=== PATIENT | female | born 1965 | race Caucasian/White ===

== ENCOUNTER 2017-09-17 13:38 | Emergency (ER) | payer MEDICAID ==
[2017-09-17] MEDS ORDERED: Sodium Chloride 0.9% 1,000 ML IV ONE (14:10)
[2017-09-17] MEDS ORDERED: LORazepam 2 MG/ML MDV IVPUSH ONE (14:10)
[2017-09-17] MEDS ORDERED: Ketorolac 30 MG/ML SDV IVPUSH ONE (14:10)
[2017-09-17] MEDS ORDERED: Ondansetron 4 MG/2 ML SDV IVPUSH ONE (14:10)
--- NOTE | 2017-09-17 14:14 | EDM.PDOC ---
ED HPI GENERAL MEDICAL PROBLEM - General Chief Complaint: Abdominal Pain Stated Complaint: ABD PAIN Time Seen by Provider: 09/17/17 13:40 Source of Information: Reports: Patient History Limitations: Reports: No Limitations - History of Present Illness INITIAL COMMENTS - FREE TEXT/NARRATIVE: HISTORY AND PHYSICAL: History of present illness: Patient is a 52-year-old female who presents to the emergency room today with complaints of generalized abdominal pain, nausea, diarrhea. Patient states yesterday she had a "funny tummy" but did not have any nausea, vomiting, diarrhea or abdominal pain at that time. Today after eating lunch she states her symptoms started. Patient does report that she has a history of anxiety and believes her anxiety is increasing her symptoms. "When I have any kind of pain my anxiety just goes crazy". She continues to talk about a past hospitalization where she had sepsis, patient reports that anytime she has pain or starts to feel ill her anxiety increases as she refers back to that hospitalization which sounds like it was a traumatic experience for her. Patient also states that she has mild midsternal chest pain that is non-radiating, she attributes this to her anxiety as these symptoms do occur when she has an increase in anxiety. Denies any shortness of breath, diaphoresis. Patient denies any fever, chills, dysuria or blood in her stools. Patient has a history of ovarian cancer which she had a total hysterectomy 25 years ago. Since that time has had no return or complications regaurding her cancer. Review of systems: As per history of present illness and below otherwise all systems reviewed and negative. Past medical history: As per history of present illness and as reviewed below otherwise noncontributory. Surgical history: As per history of present illness and as reviewed below otherwise noncontributory. Social history: No reported history of drug or alcohol abuse. Family history: As per history of present illness and as reviewed below otherwise noncontributory. Physical exam: Gen.: Well-developed and well-nourished 52-year-old female. Able to speak in full sentences without shortness of breath. Alert and oriented. HEENT: Atraumatic, normocephalic, pupils reactive, negative for conjunctival pallor or scleral icterus, mucous membranes moist, throat clear, neck supple, nontender, trachea midline. Lungs: Clear to auscultation, breath sounds equal bilaterally, chest nontender. Heart: S1S2, regular rate and rhythm Abdomen: Soft, nondistended, diffuse tenderness throughout. Negative for masses or hepatosplenomegaly. Negative for costovertebral tenderness. Pelvis: Stable nontender. Genitourinary: Deferred. Rectal: Deferred. Extremities: Atraumatic, negative for cords or calf pain. Neurovascular unremarkable. Neuro: Awake, alert, oriented. Cranial nerves II through XII unremarkable. Cerebellum unremarkable. Motor and sensory unremarkable throughout. Exam nonfocal. Patient was agreeable to the Zofran and Toradol. Although patient had requested for something anxiety initially, she now declines taking any Ativan. She does appear to be less anxious after receiving fluids. I did discuss lab results and CT salts with patient. Patient states she is aware she has diabetes type 2 that she has decided to stop all her oral and insulin medications as she does not like to take anything by mouth or give herself shots. I did tell her that she has a blood sugar of 300 with ketones spilling urine. Patient states she does not want to take any medications to lower her sugar at this time. She does agree to follow-up with a primary care provider to address this situation. Diagnostics: CBC, CMP, troponin, EKG, amylase, lipase, UA Therapeutics: IV fluid, Zofran, Toradol, Ativan Impression: 1. Abdominal pain 2. Anxiety 3. Diabetes type 2, noncompliant with medication management Plan: 1. Continue to push fluids to prevent dehydration. Eat a well-balanced diet. 2. Your blood sugar was elevated today. I would like you to follow-up with your primary care provider to get reestablished on diabetes medications. We did discuss the possible complications, and medications can prevent some of those. 3. As we discussed I would like you to monitor your abdominal pain. If this continues to get worse or you have new symptoms I would like to return to the emergency room. Please follow-up with your primary caregiver in the next 1-2 days. Return to the ED as needed as discussed Definitive disposition and diagnosis as appropriate pending reevaluation and review of above. Abdomen Pain Score (Numeric/FACES): 6 - Related Data Allergies Allergy/AdvReac Type Severity Reaction Status Date / Time latex Allergy Rash Verified 09/17/17 13:50 Sulfa (Sulfonamide Allergy Stomach Verified 09/17/17 13:50 Antibiotics) Upset Home Meds: Home Meds . [No Known Home Meds] 09/17/17 [History] Past Medical History HEENT History: Reports: Other (See Below) Other HEENT History: has top denture Cardiovascular History: Reports: None Respiratory History: Reports: Other (See Below) Other Respiratory History: chronic daily smoker Gastrointestinal History: Reports: Helicobacter Pylori Genitourinary History: Reports: None RN SURGICAL History: Reports: Musculoskeletal History: Reports: Back Pain, Chronic Neurological History: Reports: None Psychiatric History: Reports: Anxiety, Depression Endocrine/Metabolic History: Reports: Diabetes, Type II, Other (See Below) Other Endocrine/Metabolic History: Pt questions this Dx Hematologic History: Reports: Other (See Below) Other Hematologic History: States "bacterium in blood" Immunologic History: Reports: None Oncologic (Cancer) History: Reports: Ovarian Dermatologic History: Reports: Eczema - Infectious Disease History Infectious Disease History: Reports: Chicken Pox - Past Surgical History Head Surgeries/Procedures: Reports: None Female Surgical History: Reports: Hysterectomy, Salpingo-Oophorectomy Musculoskeletal Surgical History: Reports: Carpal Tunnel Oncologic Surgical History: Reports: Other (See Below) - History Comment History Comment: Son says she's been evaluated for these sxs in past but doesn' t recall where w/u was done (including CT of abd). No EGD ever done. The h pylori was dx'd by serologies. Social & Family History - Family History Family Medical History: Noncontributory Cardiac: Reports: Hypertension Other Cardiac Family History: Mother, Aunt Respiratory: Reports: COPD Other Respiratory Family Hisory: Uncle GI: Reports: None Neurological: Reports: Other (See Below) Other Neurological Family History: Stroke-Grandmother Endocrine/Metabolic: Reports: Diabetes, type II - Tobacco Use Smoking Status *Q: Current Every Day Smoker Years of Tobacco use: 30 Packs/Tins Daily: 0.5 Second Hand Smoke Exposure: Yes - Caffeine Use Caffeine Use: Reports: Soda - Alcohol Use Days Per Week of Alcohol Use: 2 Number of Drinks Per Day: 2 Total Drinks Per Week: 4 - Recreational Drug Use Recreational Drug Use: No - Living Situation & Occupation Living situation: Reports: Single Occupation: Unemployed ED ROS GENERAL - Review of Systems Review Of Systems: ROS reveals no pertinent complaints other than HPI. ED EXAM, GI/ABD - Physical Exam Exam: See Below Course - Vital Signs Last Recorded V/S: Last Vital Signs Temp 36.4 C 09/17/17 13:45 Pulse 90 09/17/17 13:45 Resp 12 09/17/17 13:45 BP 132/87 09/17/17 13:45 Pulse Ox 97 09/17/17 13:45 - Orders/Labs/Meds Orders: Active Orders 24 hr Category Date Time Status EKG Documentation Completion [RC] STAT Care 09/17/17 14:14 Active Labs: Laboratory Tests 09/17/17 09/17/17 09/17/17 Range/Units 14:25 14:25 14:25 WBC 9.85 (4.0-11.0) K/uL RBC 4.16 L (4.30-5.90) M/uL Hgb 12.4 (12.0-16.0) g/dL Hct 36.0 (36.0-46.0) % MCV 86.5 (80.0-98.0) fL MCH 29.8 (27.0-32.0) pg MCHC 34.4 (31.0-37.0) g/dL RDW Std Deviation 42.4 (28.0-62.0) fl RDW Coeff of Kennedi 13 (11.0-15.0) % Plt Count 206 (150-400) K/uL MPV 12.60 H (7.40-12.00) fL Neut % (Auto) 74.3 (48.0-80.0) % Lymph % (Auto) 15.9 L (16.0-40.0) % Beaver % (Auto) 6.8 (0.0-15.0) % Eos % (Auto) 2.8 (0.0-7.0) % Baso % (Auto) 0.2 (0.0-1.5) % Neut # (Auto) 7.3 H (1.4-5.7) K/uL Lymph # (Auto) 1.6 (0.6-2.4) K/uL Beaver # (Auto) 0.7 (0.0-0.8) K/uL Eos # (Auto) 0.3 (0.0-0.7) K/uL Baso # (Auto) 0.0 (0.0-0.1) K/uL Nucleated RBC % 0.0 /100WBC Nucleated RBCs # 0 K/uL Sodium 136 (136-146) mmol/L Potassium 3.8 (3.5-5.1) mmol/L Chloride 106 (98-110) mmol/L Carbon Dioxide 21 (21-31) mmol/L BUN 22 (6.0-23.0) mg/dL Creatinine 0.9 (0.6-1.5) mg/dL Est Cr Clr Drug Dosing 74.61 mL/min Estimated GFR (MDRD) > 60.0 ml/min Glucose 306 H (60-110) mg/dL Calcium 9.0 (8.8-10.8) mg/dL Total Bilirubin 0.5 (0.1-1.5) mg/dL AST 26 (5-40) IU/L ALT 31 (8-54) IU/L Alkaline Phosphatase 179 H (40-150) Troponin I < 0.10 (0.0-0.29) NG/ML Total Protein 6.6 (6.0-8.0) g/dL Albumin 3.7 (3.5-5.0) g/dL Globulin 2.9 (2.0-3.5) g/dL Albumin/Globulin Ratio 1.3 (1.3-2.8) Amylase 82 (10-90) U/L Lipase 23 (7-80) U/L Urine Color Urine Appearance Urine pH (5.0-8.0) Ur Specific Morgan (1.001-1.035) Urine Protein (NEGATIVE) mg/dL Urine Glucose (UA) (NEGATIVE) mg/dL Urine Ketones (NEGATIVE) mg/dL Urine Occult Blood (NEGATIVE) Urine Nitrite (NEGATIVE) Urine Bilirubin (NEGATIVE) Urine Urobilinogen (<2.0) EU/dL Ur Leukocyte Esterase (NEGATIVE) Urine RBC (0-2/HPF) Urine WBC (0-5/HPF) Ur Epithelial Cells (NONE-FEW) Urine Bacteria (NEGATIVE) Urine Yeast 09/17/17 Range/Units 14:25 WBC (4.0-11.0) K/uL RBC (4.30-5.90) M/uL Hgb (12.0-16.0) g/dL Hct (36.0-46.0) % MCV (80.0-98.0) fL MCH (27.0-32.0) pg MCHC (31.0-37.0) g/dL RDW Std Deviation (28.0-62.0) fl RDW Coeff of Kennedi (11.0-15.0) % Plt Count (150-400) K/uL MPV (7.40-12.00) fL Neut % (Auto) (48.0-80.0) % Lymph % (Auto) (16.0-40.0) % Beaver % (Auto) (0.0-15.0) % Eos % (Auto) (0.0-7.0) % Baso % (Auto) (0.0-1.5) % Neut # (Auto) (1.4-5.7) K/uL Lymph # (Auto) (0.6-2.4) K/uL Beaver # (Auto) (0.0-0.8) K/uL Eos # (Auto) (0.0-0.7) K/uL Baso # (Auto) (0.0-0.1) K/uL Nucleated RBC % /100WBC Nucleated RBCs # K/uL Sodium (136-146) mmol/L Potassium (3.5-5.1) mmol/L Chloride (98-110) mmol/L Carbon Dioxide (21-31) mmol/L BUN (6.0-23.0) mg/dL Creatinine (0.6-1.5) mg/dL Est Cr Clr Drug Dosing mL/min Estimated GFR (MDRD) ml/min Glucose (60-110) mg/dL Calcium (8.8-10.8) mg/dL Total Bilirubin (0.1-1.5) mg/dL AST (5-40) IU/L ALT (8-54) IU/L Alkaline Phosphatase (40-150) Troponin I (0.0-0.29) NG/ML Total Protein (6.0-8.0) g/dL Albumin (3.5-5.0) g/dL Globulin (2.0-3.5) g/dL Albumin/Globulin Ratio (1.3-2.8) Amylase (10-90) U/L Lipase (7-80) U/L Urine Color YELLOW Urine Appearance SLT CLOUDY Urine pH 5.5 (5.0-8.0) Ur Specific Morgan 1.025 (1.001-1.035) Urine Protein NEGATIVE (NEGATIVE) mg/dL Urine Glucose (UA) >=1000 (NEGATIVE) mg/dL Urine Ketones TRACE H (NEGATIVE) mg/dL Urine Occult Blood TRACE-INTACT (NEGATIVE) Urine Nitrite NEGATIVE (NEGATIVE) Urine Bilirubin NEGATIVE (NEGATIVE) Urine Urobilinogen 0.2 (<2.0) EU/dL Ur Leukocyte Esterase NEGATIVE (NEGATIVE) Urine RBC 0-1 (0-2/HPF) Urine WBC 3-6 (0-5/HPF) Ur Epithelial Cells MANY (NONE-FEW) Urine Bacteria RARE (NEGATIVE) Urine Yeast FEW Meds: Medications Discontinued Medications Generic Name Dose Route Start Last Admin Trade Name Freq PRN Reason Stop Dose Admin Sodium Chloride 1,000 mls @ 999 mls/hr 09/17/17 14:10 09/17/17 14:31 Normal Saline IV 09/17/17 15:10 999 mls/hr STAT ONE Administration Iopamidol 100 ml 09/17/17 15:31 09/17/17 15:46 Isovue Multipack-370 (76%) IVPUSH 09/17/17 15:32 100 ml ONETIME STA Administration Ketorolac Tromethamine 30 mg 09/17/17 14:10 09/17/17 14:28 Toradol IVPUSH 09/17/17 14:11 30 mg ONETIME ONE Administration Lorazepam 0.5 mg 09/17/17 14:10 09/17/17 14:37 Ativan IVPUSH 09/17/17 14:11 Not Given ONETIME ONE Ondansetron HCl 4 mg 09/17/17 14:10 09/17/17 14:28 Zofran IVPUSH 09/17/17 14:11 4 mg ONETIME ONE Administration Departure - Departure Time of Disposition: 16:50 Disposition: Home, W Home Health Agency 06 Clinical Impression: Anxiety, History of medication noncompliance Abdominal pain Qualifiers: Abdominal location: generalized Qualified Code(s): R10.84 - Generalized abdominal pain - Discharge Information Referrals: Jesús Dial MD [Primary Care Provider] - Forms: ED Department Discharge Additional Instructions: My general discharge The following information is given to patients seen in the emergency department who are being discharged to home. This information is to outline your options for follow-up care. We provide all patients seen in our emergency department with a follow-up referral. The need for follow-up, as well as the timing and circumstances, are variable depending upon the specifics of your emergency department visit. If you don't have a primary care physician on staff, we will provide you with a referral. We always advise you to contact your personal physician following an emergency department visit to inform them of the circumstance of the visit and for follow-up with them and/or the need for any referrals to a consulting specialist. The emergency department will also refer you to a specialist when appropriate. This referral assures that you have the opportunity for follow-up care with a specialist. All of these measure are taken in an effort to provide you with optimal care, which includes your follow-up. Under all circumstances we always encourage you to contact your private physician who remains a resource for coordinating your care. When calling for follow-up care, please make the office aware that this follow-up is from your recent emergency room visit. If for any reason you are refused follow-up, please contact the [facility] Emergency Department at and asked to speak to the emergency department charge nurse. [facility] [address] [place] [address] 1. Continue to push fluids to prevent dehydration. Eat a well-balanced diet. 2. Your blood sugar was elevated today. I would like you to follow-up with your primary care provider to get reestablished on diabetes medications. We did discuss the possible complications, and medications can prevent some of those. 3. As we discussed I would like you to monitor your abdominal pain. If this continues to get worse or you have new symptoms I would like to return to the emergency room. Please follow-up with your primary caregiver in the next 1-2 days. Return to the ED as needed as discussed - My Orders Last 24 Hours: My Active Orders 09/17/17 14:14 EKG Documentation Completion [RC] STAT - Assessment/Plan Last 24 Hours: My Active Orders 09/17/17 14:14 EKG Documentation Completion [RC] STAT
[2017-09-17 14:54] LABS: CHLORIDE,CL 106 mmol/L (98-110); SODIUM,NA 136 mmol/L (136-146)
[2017-09-17] MEDS ORDERED: Iopamidol 755 MG/ML 500 ML Multipack Bottle IVPUSH STA (15:31)
--- NOTE | 2017-09-17 16:17 | CT ---
CT of the abdomen and pelvis with contrast. HISTORY: Pain TECHNIQUE: Axial CT images were obtained of the abdomen and pelvis following administration of 100 mL of Isovue-370 in the right wrist without complication. Coronal and sagittal reconstructions obtained . FINDINGS: The lung bases are clear, no pleural effusion. The liver, spleen, adrenal glands, and pancreas appear normal. The gallbladder is normal. No bulky re troperitoneal lymphadenopathy or abdominal ascites. The kidneys enhance and function symmetrically without evidence of obstructive uropathy. Small renal cysts noted. There are mildly prominent loops of small bowel measuring up to 3 cm. There is also fluid, gas and st ool noted throughout the colon. No definite transition point identified. No free fluid or free air. T he urinary bladder is decompressed. No bulky pelvic lymphadenopathy. No suspicious osseous abnormalities identified. IMPRESSION: 1. Mildly prominent loops of small bowel are still and gas noted throughout the colon. This may repre sent an ileus, this is unlikely a bowel obstruction however a partial obstruction is not excluded. En teritis is also a consideration. 2. Otherwise no acute findings demonstrated within the abdomen or pelvis.
[2017-09-17 17:43] VITALS: BP 143/92
== END 2017-09-17 17:15 | disposition home health service (06) ==
LOC: MW.ED 13:38
DX: R10.84 Generalized abdominal pain (principal); F17.210 Nicotine dependence, cigarettes, uncomplicated; E11.9 Type 2 diabetes mellitus without complications; Z90.710 Acquired absence of both cervix and uterus; Z88.2 Allergy status to sulfonamides; Z91.040 Latex allergy status; Z85.43 Personal history of malignant neoplasm of ovary; F41.9 Anxiety disorder, unspecified; Z91.14 Patient's other noncompliance with medication regimen
CPT/HCPCS: 74177; 80053; 81001; 82150; 83690; 84484; 85025; 93005; 96361; 96374; 96375; 99284; J1885; J2405; J7040; Q9967

== ENCOUNTER 2017-09-26 08:51 | Emergency (ER) | payer MEDICAID ==
--- NOTE | 2017-09-26 09:22 | EDM.PDOC ---
ED HPI GENERAL MEDICAL PROBLEM - General Chief Complaint: Abdominal Pain Stated Complaint: ABD PAIN Time Seen by Provider: 09/26/17 09:17 Source of Information: Reports: Patient History Limitations: Reports: No Limitations - History of Present Illness INITIAL COMMENTS - FREE TEXT/NARRATIVE: History of present illness: Patient has had abdominal pain for 2 years. Review of systems: As per history of present illness and below otherwise all systems reviewed and negative. Past medical history: As per history of present illness and as reviewed below otherwise noncontributory. Surgical history: As per history of present illness and as reviewed below otherwise noncontributory. Social history: No reported history of drug or alcohol abuse. Family history: As per history of present illness and as reviewed below otherwise noncontributory. Physical exam: General: Well developed, well nourished in NAD HEENT: Atraumatic, normocephalic, pupils reactive, negative for conjunctival pallor or scleral icterus, mucous membranes moist, throat clear, neck supple, nontender, trachea midline. Lungs: Clear to auscultation, breath sounds equal bilaterally, chest nontender. Heart: S1S2, regular, negative for clicks, rubs, or JVD. Abdomen: Soft, nondistended, nontender. Negative for masses or hepatosplenomegaly. Negative for costovertebral tenderness. Pelvis: Stable nontender. Genitourinary: Deferred. Rectal: Deferred. Extremities: Atraumatic, negative for cords or calf pain. Neurovascular unremarkable. Neuro: Awake, alert, oriented. Cranial nerves II through XII unremarkable. Cerebellum unremarkable. Motor and sensory unremarkable throughout. Exam nonfocal. Diagnostics: []CBC chemistry and UA were checked which were all normal except for an elevated glucose in the 400s Therapeutics: []Initially patient refused any treatment has not had any diabetic education and is in fear of receiving insulin. I explained to her the need and she finally agreed to receiving one dose of insulin and a repeat CBG showed a glucose of 268. No signs of DKA. Her labs Impression: []Uncontrolled diabetes Plan: []Diabetic nurse was contacted and she will be speaking with the patient by phone this afternoon and scheduling appointment to educating her further and giving her some supplies. Definitive disposition and diagnosis as appropriate pending reevaluation and review of above. Middle Abdominal Pain Score (Numeric/FACES): 4 - Related Data Allergies Allergy/AdvReac Type Severity Reaction Status Date / Time latex Allergy Rash Verified 09/26/17 09:17 Sulfa (Sulfonamide Allergy Stomach Verified 09/26/17 09:17 Antibiotics) Upset Past Medical History HEENT History: Reports: Other (See Below) Other HEENT History: has top denture Cardiovascular History: Reports: None Respiratory History: Reports: Other (See Below) Other Respiratory History: chronic daily smoker Gastrointestinal History: Reports: Helicobacter Pylori Genitourinary History: Reports: None [employer] History: Reports: Musculoskeletal History: Reports: Back Pain, Chronic Neurological History: Reports: None Psychiatric History: Reports: Anxiety, Depression Endocrine/Metabolic History: Reports: Diabetes, Type II, Other (See Below) Other Endocrine/Metabolic History: Pt questions this Dx Hematologic History: Reports: Other (See Below) Other Hematologic History: States "bacterium in blood" Immunologic History: Reports: None Oncologic (Cancer) History: Reports: Ovarian Dermatologic History: Reports: Eczema - Infectious Disease History Infectious Disease History: Reports: Chicken Pox - Past Surgical History Head Surgeries/Procedures: Reports: None Female Surgical History: Reports: Hysterectomy, Salpingo-Oophorectomy Musculoskeletal Surgical History: Reports: Carpal Tunnel Oncologic Surgical History: Reports: Other (See Below) - History Comment History Comment: Son says she's been evaluated for these sxs in past but doesn' t recall where w/u was done (including CT of abd). No EGD ever done. The h pylori was dx'd by serologies. Social & Family History - Family History Family Medical History: Noncontributory Cardiac: Reports: Hypertension Other Cardiac Family History: Mother, Aunt Respiratory: Reports: COPD Other Respiratory Family Hisory: Uncle GI: Reports: None Neurological: Reports: Other (See Below) Other Neurological Family History: Stroke-Grandmother Endocrine/Metabolic: Reports: Diabetes, type II - Tobacco Use Smoking Status *Q: Current Every Day Smoker Years of Tobacco use: 30 Packs/Tins Daily: 0.5 Second Hand Smoke Exposure: Yes - Caffeine Use Caffeine Use: Reports: Soda - Alcohol Use Days Per Week of Alcohol Use: 2 Number of Drinks Per Day: 2 Total Drinks Per Week: 4 - Recreational Drug Use Recreational Drug Use: No - Living Situation & Occupation Living situation: Reports: Single Occupation: Unemployed ED ROS GENERAL - Review of Systems Review Of Systems: See Below (See history of present illness) ED EXAM, GI/ABD - Physical Exam Exam: See Below (See history of present illness) Course - Vital Signs Last Recorded V/S: Last Vital Signs Temp 36.8 C 09/26/17 10:17 Pulse 78 09/26/17 10:17 Resp 12 09/26/17 10:17 BP 138/82 09/26/17 10:17 Pulse Ox 96 09/26/17 10:17 - Orders/Labs/Meds Orders: Active Orders 24 hr Category Date Time Status Blood Glucose Check, Bedside [RC] ONETIME Care 09/26/17 11:26 Ordered Labs: Laboratory Tests 09/26/17 09/26/17 09/26/17 Range/Units 09:34 09:34 09:45 WBC 6.27 (4.0-11.0) K/uL RBC 4.13 L (4.30-5.90) M/uL Hgb 12.3 (12.0-16.0) g/dL Hct 36.3 (36.0-46.0) % MCV 87.9 (80.0-98.0) fL MCH 29.8 (27.0-32.0) pg MCHC 33.9 (31.0-37.0) g/dL RDW Std Deviation 42.2 (28.0-62.0) fl RDW Coeff of [place] 13 (11.0-15.0) % Plt Count 183 (150-400) K/uL MPV 12.80 H (7.40-12.00) fL Neut % (Auto) 73.1 (48.0-80.0) % Lymph % (Auto) 19.1 (16.0-40.0) % [place] % (Auto) 4.0 (0.0-15.0) % Eos % (Auto) 3.3 (0.0-7.0) % Baso % (Auto) 0.5 (0.0-1.5) % Neut # (Auto) 4.6 (1.4-5.7) K/uL Lymph # (Auto) 1.2 (0.6-2.4) K/uL [place] # (Auto) 0.3 (0.0-0.8) K/uL Eos # (Auto) 0.2 (0.0-0.7) K/uL Baso # (Auto) 0.0 (0.0-0.1) K/uL Nucleated RBC % 0.0 /100WBC Nucleated RBCs # 0 K/uL Sodium 133 L (136-146) mmol/L Potassium 4.0 (3.5-5.1) mmol/L Chloride 102 (98-110) mmol/L Carbon Dioxide 24 (21-31) mmol/L BUN 25 H (6.0-23.0) mg/dL Creatinine 1.1 (0.6-1.5) mg/dL Est Cr Clr Drug Dosing 60.46 mL/min Estimated GFR (MDRD) 52.6 ml/min Glucose 416 H (60-110) mg/dL Calcium 9.1 (8.8-10.8) mg/dL Total Bilirubin 0.4 (0.1-1.5) mg/dL AST 27 (5-40) IU/L ALT 26 (8-54) IU/L Alkaline Phosphatase 159 H (40-150) Total Protein 6.7 (6.0-8.0) g/dL Albumin 3.7 (3.5-5.0) g/dL Globulin 3.0 (2.0-3.5) g/dL Albumin/Globulin Ratio 1.2 L (1.3-2.8) Lipase 28 (7-80) U/L Urine Color YELLOW Urine Appearance CLEAR Urine pH 5.5 (5.0-8.0) Ur Specific [place] 1.020 (1.001-1.035) Urine Protein NEGATIVE (NEGATIVE) mg/dL Urine Glucose (UA) >=1000 (NEGATIVE) mg/dL Urine Ketones NEGATIVE (NEGATIVE) mg/dL Urine Occult Blood SMALL H (NEGATIVE) Urine Nitrite NEGATIVE (NEGATIVE) Urine Bilirubin NEGATIVE (NEGATIVE) Urine Urobilinogen 0.2 (<2.0) EU/dL Ur Leukocyte Esterase NEGATIVE (NEGATIVE) Urine RBC 0-1 (0-2/HPF) Urine WBC 0-1 (0-5/HPF) Ur Epithelial Cells FEW (NONE-FEW) Urine Bacteria RARE (NEGATIVE) Meds: Medications Discontinued Medications Generic Name Dose Route Start Last Admin Trade Name Freq PRN Reason Stop Dose Admin Hyoscyamine 0.125 mg 09/26/17 09:23 09/26/17 09:30 Hyomax-Sl SL 09/26/17 09:24 0.125 mg ONETIME ONE Administration Insulin Human Regular 10 unit 09/26/17 10:21 09/26/17 10:46 Novolin R SUBCUT 09/26/17 10:22 10 units ONETIME ONE Administration Protocol Ondansetron HCl 4 mg 09/26/17 09:46 09/26/17 09:57 Zofran Odt PO 09/26/17 09:47 4 mg ONETIME ONE Administration Departure - Departure Time of Disposition: 12:01 Disposition: Home, Self-Care 01 Condition: Good Clinical Impression: Uncontrolled diabetes mellitus Qualifiers: Diabetes mellitus type: type 2 Diabetes mellitus complication status: with unspecified complications Diabetes mellitus continuous churn buttermaker insulin use: without continuous churn buttermaker use Qualified Code(s): E11.8 - Type 2 diabetes mellitus with unspecified complications; E11.65 - Type 2 diabetes mellitus with hyperglycemia; E11.65 - Type 2 diabetes mellitus with hyperglycemia; E11.65 - Type 2 diabetes mellitus with hyperglycemia; E11.65 - Type 2 diabetes mellitus with hyperglycemia - Discharge Information Referrals: Jesús Dial MD [Primary Care Provider] - Forms: ED Department Discharge Additional Instructions: The following information is given to patients seen in the emergency department who are being discharged to home. This information is to outline your options for follow-up care. We provide all patients seen in our emergency department with a follow-up referral. The need for follow-up, as well as the timing and circumstances, are variable depending upon the specifics of your emergency department visit. If you don't have a primary care physician on staff, we will provide you with a referral. We always advise you to contact your personal physician following an emergency department visit to inform them of the circumstance of the visit and for follow-up with them and/or the need for any referrals to a consulting specialist. The emergency department will also refer you to a specialist when appropriate. This referral assures that you have the opportunity for follow-up care with a specialist. All of these measure are taken in an effort to provide you with optimal care, which includes your follow-up. Under all circumstances we always encourage you to contact your private physician who remains a resource for coordinating your care. When calling for follow-up care, please make the office aware that this follow-up is from your recent emergency room visit. If for any reason you are refused follow-up, please contact the [facility] Emergency Department at and asked to speak to the emergency department charge nurse. A Diabetic nurse will be contacting you for further education please follow-up with primary care physician return to ER if needed [facility] [address] [place] [id number] - My Orders Last 24 Hours: My Active Orders 09/26/17 11:26 Blood Glucose Check, Bedside [RC] ONETIME - Assessment/Plan Last 24 Hours: My Active Orders 09/26/17 11:26 Blood Glucose Check, Bedside [RC] ONETIME
[2017-09-26] MEDS ORDERED: Hyoscyamine 0.125 MG Tab.SL SL ONE (09:23)
[2017-09-26] MEDS ORDERED: Ondansetron 4 MG Tab.DIS PO ONE (09:46)
[2017-09-26] MEDS ORDERED: Insulin Regular, Human 100 Units/ML 10 ML Vial SUBCUT ONE (10:21)
[2017-09-26] MEDS ORDERED: Sodium Chloride 0.9% 1,000 ML IV ONE (10:34)
[2017-09-26 12:06] VITALS: BP 132/82
== END 2017-09-26 12:08 | disposition home or self-care (01) ==
LOC: MW.ED 08:51
DX: E11.65 Type 2 diabetes mellitus with hyperglycemia (principal); E11.43 Type 2 diabetes mellitus with diabetic autonomic (poly)neuropathy; K31.84 Gastroparesis; F17.210 Nicotine dependence, cigarettes, uncomplicated; Z91.040 Latex allergy status; Z88.2 Allergy status to sulfonamides
CPT/HCPCS: 36415; 80053; 81001; 82962; 83690; 85025; 96372; 99284; A9270; J1815; 99283

== ENCOUNTER 2017-10-06 19:28 | Emergency (ER) | payer MEDICAID ==
[2017-10-06] MEDS ORDERED: Ondansetron 4 MG/2 ML SDV IVPUSH ONE (20:06)
[2017-10-06] MEDS ORDERED: Sodium Chloride 0.9% 1,000 ML IV ONE (20:06)
--- NOTE | 2017-10-06 20:10 | EDM.PDOC ---
ED HPI GENERAL MEDICAL PROBLEM - General Chief Complaint: Abdominal Pain Stated Complaint: SICK Time Seen by Provider: 10/06/17 20:01 - History of Present Illness INITIAL COMMENTS - FREE TEXT/NARRATIVE: HISTORY AND PHYSICAL: History of present illness: Patient's 52-year-old white female history of chronic abdominal pain she states related to gastroparesis who presents with concern of abdominal pain poor oral intake and dehydration she requests IV fluids and antiemetics she's been imaged in numerous times in does agree to diagnostics the form of lab but declines any imaging Review of systems: As per history of present illness and below otherwise all systems reviewed and negative. Past medical history: As per history of present illness and as reviewed below otherwise noncontributory. Surgical history: As per history of present illness and as reviewed below otherwise noncontributory. Social history: No reported history of drug or alcohol abuse. Family history: As per history of present illness and as reviewed below otherwise noncontributory. Physical exam: HEENT: Atraumatic, normocephalic, pupils reactive, negative for conjunctival pallor or scleral icterus, mucous membranes dry, throat clear, neck supple, nontender, trachea midline. Lungs: Clear to auscultation, breath sounds equal bilaterally, chest nontender. Heart: S1S2, regular, negative for clicks, rubs, or JVD. Abdomen: Soft, nondistended, no localized tenderness. Negative for masses or hepatosplenomegaly. Negative for costovertebral tenderness. Pelvis: Stable nontender. Genitourinary: Deferred. Rectal: Deferred. Extremities: Atraumatic, negative for cords or calf pain. Neurovascular unremarkable. Neuro: Awake, alert, oriented. Cranial nerves II through XII unremarkable. Cerebellum unremarkable. Motor and sensory unremarkable throughout. Exam nonfocal. Diagnostics: CBC CMP amylase lipase UA UDS Therapeutics: Saline 1 L bolus Zofran 4 mg IV Impression: #1 chronic abdominal pain #2 history of gastroparesis Definitive disposition and diagnosis as appropriate pending reevaluation and review of above. abdomen Pain Score (Numeric/FACES): 5 back Pain Score (Numeric/FACES): 8 - Related Data Allergies Allergy/AdvReac Type Severity Reaction Status Date / Time latex Allergy Rash Verified 10/06/17 19:41 Sulfa (Sulfonamide Allergy Stomach Verified 10/06/17 19:41 Antibiotics) Upset Home Meds: Home Meds . 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: Reports: Musculoskeletal History: Reports: Back Pain, Chronic Neurological History: Reports: None Psychiatric History: Reports: Anxiety, Depression Endocrine/Metabolic History: Reports: Diabetes, Type II, Other (See Below) Other Endocrine/Metabolic History: Pt questions this Dx Hematologic History: Reports: Other (See Below) Other Hematologic History: States "bacterium in blood" Immunologic History: Reports: None Oncologic (Cancer) History: Reports: Ovarian Dermatologic History: Reports: Eczema - Infectious Disease History Infectious Disease History: Reports: Chicken Pox - Past Surgical History Head Surgeries/Procedures: Reports: None Female Surgical History: Reports: Hysterectomy, Salpingo-Oophorectomy Musculoskeletal Surgical History: Reports: Carpal Tunnel Oncologic Surgical History: Reports: Other (See Below) - History Comment History Comment: Son says she's been evaluated for these sxs in past but doesn' t recall where w/u was done (including CT of abd). No EGD ever done. The h pylori was dx'd by serologies. Social & Family History - Family History Family Medical History: Noncontributory Cardiac: Reports: Hypertension Other Cardiac Family History: Mother, Aunt Respiratory: Reports: COPD Other Respiratory Family Hisory: Uncle GI: Reports: None Neurological: Reports: Other (See Below) Other Neurological Family History: Stroke-Grandmother Endocrine/Metabolic: Reports: Diabetes, type II - Tobacco Use Smoking Status *Q: Current Every Day Smoker Years of Tobacco use: 30 Packs/Tins Daily: 1 Second Hand Smoke Exposure: Yes - Caffeine Use Caffeine Use: Reports: Soda - Alcohol Use Days Per Week of Alcohol Use: 2 Number of Drinks Per Day: 2 Total Drinks Per Week: 4 - Recreational Drug Use Recreational Drug Use: No - Living Situation & Occupation Living situation: Reports: Single Occupation: Unemployed ED ROS GENERAL - Review of Systems Review Of Systems: ROS reveals no pertinent complaints other than HPI. ED EXAM, GENERAL - Physical Exam Exam: See Below (See dictation) Course - Vital Signs Last Recorded V/S: Last Vital Signs Temp 37.2 C 10/06/17 19:45 Pulse 107 H 10/06/17 19:45 Resp 20 10/06/17 19:45 BP 98/69 10/06/17 19:45 Pulse Ox 96 10/06/17 19:45 - Orders/Labs/Meds Orders: Active Orders 24 hr Category Date Time Status AMYLASE [CHEM] Stat Lab 10/06/17 20:06 Ordered CBC WITH AUTO DIFF [HEME] Stat Lab 10/06/17 20:06 Ordered COMPREHENSIVE METABOLIC PN,CMP [CHEM] Stat Lab 10/06/17 20:06 Ordered DRUG SCREEN, URINE [URCHEM] Stat Lab 10/06/17 20:06 Uncollected LIPASE [CHEM] Stat Lab 10/06/17 20:06 Ordered UA W/MICROSCOPIC [URIN] Stat Lab 10/06/17 20:06 Uncollected Sodium Chloride 0.9% [Normal Saline] 1,000 ml Med 10/06/17 20:06 Ordered IV STAT Medication Orders Sodium Chloride (Normal Saline) 1,000 mls @ 999 mls/hr IV STAT ONE Stop: 10/06/17 21:06 Meds: Medications Generic Name Dose Route Start Last Admin Trade Name Freq PRN Reason Stop Dose Admin Sodium Chloride 1,000 mls @ 999 mls/hr 10/06/17 20:06 Normal Saline IV 10/06/17 21:06 STAT ONE Discontinued Medications Generic Name Dose Route Start Last Admin Trade Name Freq PRN Reason Stop Dose Admin Ondansetron HCl 4 mg 10/06/17 20:06 Zofran IVPUSH 10/06/17 20:07 ONETIME ONE Departure - Departure Time of Disposition: 20:09 Disposition: Home, Self-Care 01 Condition: Good Clinical Impression: Chronic abdominal pain - Discharge Information Referrals: Jesús Dial MD [Primary Care Provider] - Additional Instructions: The following information is given to patients seen in the emergency department who are being discharged to home. This information is to outline your options for follow-up care. We provide all patients seen in our emergency department with a follow-up referral. The need for follow-up, as well as the timing and circumstances, are variable depending upon the specifics of your emergency department visit. If you don't have a primary care physician on staff, we will provide you with a referral. We always advise you to contact your personal physician following an emergency department visit to inform them of the circumstance of the visit and for follow-up with them and/or the need for any referrals to a consulting specialist. The emergency department will also refer you to a specialist when appropriate. This referral assures that you have the opportunity for followup care with a specialist. All of these measure are taken in an effort to provide you with optimal care, which includes your followup. Under all circumstances we always encourage you to contact your private physician who remains a resource for coordinating your care. When calling for followup care, please make the office aware that this follow-up is from your recent emergency room visit. If for any reason you are refused follow-up, please contact the [facility] emergency department at and asked to speak to the emergency department charge nurse. Follow primary medical doctor 1-2 days push fluids clear liquids as directed Zofran as prescribed and return as needed as discussed - My Orders Last 24 Hours: My Active Orders 10/06/17 20:06 AMYLASE [CHEM] Stat CBC WITH AUTO DIFF [HEME] Stat COMPREHENSIVE METABOLIC PN,CMP [CHEM] Stat DRUG SCREEN, URINE [URCHEM] Stat LIPASE [CHEM] Stat UA W/MICROSCOPIC [URIN] Stat Sodium Chloride 0.9% [Normal Saline] 1,000 ml IV STAT - Assessment/Plan Last 24 Hours: My Active Orders 10/06/17 20:06 AMYLASE [CHEM] Stat CBC WITH AUTO DIFF [HEME] Stat COMPREHENSIVE METABOLIC PN,CMP [CHEM] Stat DRUG SCREEN, URINE [URCHEM] Stat LIPASE [CHEM] Stat UA W/MICROSCOPIC [URIN] Stat Sodium Chloride 0.9% [Normal Saline] 1,000 ml IV STAT
[2017-10-07 00:40] VITALS: BP 120/67
== END 2017-10-06 21:35 | disposition home or self-care (01) ==
LOC: MW.ED 19:28
DX: R10.9 Unspecified abdominal pain (principal); G89.29 Other chronic pain; F17.210 Nicotine dependence, cigarettes, uncomplicated; Z91.040 Latex allergy status; Z87.19 Personal history of other diseases of the digestive system; Z88.2 Allergy status to sulfonamides
CPT/HCPCS: 80053; 82150; 83690; 85025; 96361; 96374; 99284; J2405; J7040

== ENCOUNTER 2017-11-18 05:53 | Inpatient (IN) | payer MEDICAID ==
[2017-11-18] MEDS ORDERED: Ondansetron 4 MG/2 ML SDV IVPUSH ONE (05:54)
[2017-11-18] MEDS ORDERED: Sodium Chloride 0.9% 1,000 ML IV ONE (05:54)
[2017-11-18] MEDS ORDERED: LORazepam 2 MG/ML SDV IVPUSH ONE ×3 (05:54→10:26)
--- NOTE | 2017-11-18 06:16 | EDM.PDOC ---
ED HPI GENERAL MEDICAL PROBLEM - General Chief Complaint: General Stated Complaint: ANXIETY ATTACK Time Seen by Provider: 11/18/17 06:16 Source of Information: Reports: Patient - History of Present Illness INITIAL COMMENTS - FREE TEXT/NARRATIVE: HISTORY AND PHYSICAL: History of present illness: [Patient with history of anxiety presents in a state of panic after vomiting several times at home, her roommate relates that this occurs on a monthly to bimonthly basis. Is also no non-diabetic and likely medication noncompliant, she has had multiple visits here for similar followed by Dr. Willoughby at [facility], she is also added medication used to [facility], this information is provided by her roommate. She also was noted to have a 200 pound weight loss by her roommate over the last 2 years. Patient is very skinny with temporal wasting almost appearing like she may be using illicit drugs like methamphetamine. She presents in a state of hysteria thrashing around rolling around on the bed crying very similar to a 4-year-old child for no obvious reason. Initially she refused anxiety medication/Ativan, after her roommates arrival he did take the Ativan is sleeping comfortably she is not had emesis since she was provided Ativan and Zofran, he did vomit once on her roommates arrival this seemed to be forced over exaggerated Currently sleeping comfortably post Ativan No fever Chest pain shortness breath headache dizziness palpitation no bowel or urine symptoms Review of systems: As per history of present illness and below otherwise all systems reviewed and negative. Past medical history: As per history of present illness and as reviewed below otherwise noncontributory. Surgical history: As per history of present illness and as reviewed below otherwise noncontributory. Social history: No reported history of drug or alcohol abuse. Family history: As per history of present illness and as reviewed below otherwise noncontributory. Physical exam: HEENT: Atraumatic, normocephalic, pupils reactive, negative for conjunctival pallor or scleral icterus, mucous membranes moist, throat clear, neck supple, nontender, trachea midline. Lungs: Clear to auscultation, breath sounds equal bilaterally, chest nontender. Heart: S1S2, regular, negative for clicks, rubs, or JVD. Abdomen: Soft, nondistended, nontender. Negative for masses or hepatosplenomegaly. Negative for costovertebral tenderness. Pelvis: Stable nontender. Genitourinary: Deferred. Rectal: Deferred. Extremities: Atraumatic, negative for cords or calf pain. Neurovascular unremarkable. Neuro: Awake, alert, oriented. Cranial nerves II through XII unremarkable. Cerebellum unremarkable. Motor and sensory unremarkable throughout. Exam nonfocal. Diagnostics: []CBC CMP UA drug screen alcohol level TSH Therapeutics: []1 L normal saline bolus Ativan 1 mg IV Zofran 8 mg IV Impression: []Anxiety/panic Diabetes uncontrolled Hyperglycemia Definitive disposition and diagnosis as appropriate pending reevaluation and review of above. - Related Data Allergies Allergy/AdvReac Type Severity Reaction Status Date / Time latex Allergy Rash Verified 10/06/17 19:41 Sulfa (Sulfonamide Allergy Stomach Verified 10/06/17 19:41 Antibiotics) Upset sulfur dioxide Allergy Stomach Verified 11/18/17 06:04 Upset Home Meds: Home Meds . 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: Musculoskeletal History: Reports: Back Pain, Chronic Neurological History: Reports: None Psychiatric History: Reports: Anxiety, Depression Endocrine/Metabolic History: Reports: Diabetes, Type II Other Endocrine/Metabolic History: Pt questions this Dx Hematologic History: Reports: Other (See Below) Other Hematologic History: States "bacterium in blood" Immunologic History: Reports: None Oncologic (Cancer) History: Reports: Ovarian Dermatologic History: Reports: Eczema - Infectious Disease History Infectious Disease History: Reports: Chicken Pox - Past Surgical History Head Surgeries/Procedures: Reports: None HEENT Surgical History: Reports: None Cardiovascular Surgical History: Reports: None GI Surgical History: Reports: None Female Surgical History: Reports: Hysterectomy, Salpingo-Oophorectomy Endocrine Surgical History: Reports: None Musculoskeletal Surgical History: Reports: Carpal Tunnel Oncologic Surgical History: Reports: Other (See Below) - History Comment History Comment: Son says she's been evaluated for these sxs in past but doesn' t recall where w/u was done (including CT of abd). No EGD ever done. The h pylori was dx'd by serologies. Social & Family History - Family History Family Medical History: Noncontributory Cardiac: Reports: Hypertension Other Cardiac Family History: Mother, Aunt Respiratory: Reports: COPD Other Respiratory Family Hisory: Uncle GI: Reports: None Neurological: Reports: Other (See Below) Other Neurological Family History: Stroke-Grandmother Endocrine/Metabolic: Reports: Diabetes, type II - Tobacco Use Smoking Status *Q: Current Every Day Smoker Years of Tobacco use: 35 Packs/Tins Daily: 0.5 Second Hand Smoke Exposure: Yes - Caffeine Use Caffeine Use: Reports: None - Alcohol Use Days Per Week of Alcohol Use: 2 Number of Drinks Per Day: 2 Total Drinks Per Week: 4 - Recreational Drug Use Recreational Drug Use: No - Living Situation & Occupation Living situation: Reports: Single Occupation: Unemployed ED ROS GENERAL - Review of Systems Review Of Systems: ROS reveals no pertinent complaints other than HPI. ED EXAM, GENERAL - Physical Exam Exam: See Below Course - Vital Signs Last Recorded V/S: Last Vital Signs Temp 97.6 F 11/18/17 05:57 Pulse 95 11/18/17 08:17 Resp 18 11/18/17 08:17 BP 144/79 H 11/18/17 08:17 Pulse Ox 98 11/18/17 08:17 - Orders/Labs/Meds Orders: Active Orders 24 hr Category Date Time Status Blood Glucose Check, Bedside [RC] ONETIME Care 11/18/17 08:24 Active EKG Documentation Completion [RC] STAT Care 11/18/17 07:32 Active DRUG SCREEN, URINE [URCHEM] Stat Lab 11/18/17 06:15 Uncollected UA W/MICROSCOPIC [URIN] Stat Lab 11/18/17 05:55 Uncollected Labs: Laboratory Tests 11/18/17 11/18/17 11/18/17 Range/Units 06:25 06:25 06:25 WBC 7.70 (4.0-11.0) K/uL RBC 4.60 (4.30-5.90) M/uL Hgb 13.9 (12.0-16.0) g/dL Hct 39.8 (36.0-46.0) % MCV 86.5 (80.0-98.0) fL MCH 30.2 (27.0-32.0) pg MCHC 34.9 (31.0-37.0) g/dL RDW Std Deviation 41.2 (28.0-62.0) fl RDW Coeff of Kennedi 13 (11.0-15.0) % Plt Count 219 (150-400) K/uL MPV 13.50 H (7.40-12.00) fL Neut % (Auto) 69.4 (48.0-80.0) % Lymph % (Auto) 22.5 (16.0-40.0) % Rogers % (Auto) 6.4 (0.0-15.0) % Eos % (Auto) 1.2 (0.0-7.0) % Baso % (Auto) 0.5 (0.0-1.5) % Neut # (Auto) 5.4 (1.4-5.7) K/uL Lymph # (Auto) 1.7 (0.6-2.4) K/uL Rogers # (Auto) 0.5 (0.0-0.8) K/uL Eos # (Auto) 0.1 (0.0-0.7) K/uL Baso # (Auto) 0.0 (0.0-0.1) K/uL Nucleated RBC % 0.0 /100WBC Nucleated RBCs # 0 K/uL Sodium 137 (136-146) mmol/L Potassium 3.9 (3.5-5.1) mmol/L Chloride 100 (98-110) mmol/L Carbon Dioxide 24 (21-31) mmol/L BUN 24 H (6.0-23.0) mg/dL Creatinine 1.3 (0.6-1.5) mg/dL Est Cr Clr Drug Dosing 45.77 mL/min Estimated GFR (MDRD) 43.4 ml/min Glucose 390 H (60-110) mg/dL POC Glucose (60-110) mg/dL Calcium 9.8 (8.8-10.8) mg/dL Total Bilirubin 0.9 (0.1-1.5) mg/dL AST 17 (5-40) IU/L ALT 14 (8-54) IU/L Alkaline Phosphatase 140 (40-150) Total Protein 7.2 (6.0-8.0) g/dL Albumin 4.1 (3.5-5.0) g/dL Globulin 3.1 (2.0-3.5) g/dL Albumin/Globulin Ratio 1.3 (1.3-2.8) TSH 3rd Generation (0.47-5.0) uIU/mL Ethyl Alcohol < 10.0 mg/dL 11/18/17 11/18/17 11/18/17 Range/Units 06:25 08:11 09:34 WBC (4.0-11.0) K/uL RBC (4.30-5.90) M/uL Hgb (12.0-16.0) g/dL Hct (36.0-46.0) % MCV (80.0-98.0) fL MCH (27.0-32.0) pg MCHC (31.0-37.0) g/dL RDW Std Deviation (28.0-62.0) fl RDW Coeff of Kennedi (11.0-15.0) % Plt Count (150-400) K/uL MPV (7.40-12.00) fL Neut % (Auto) (48.0-80.0) % Lymph % (Auto) (16.0-40.0) % Rogers % (Auto) (0.0-15.0) % Eos % (Auto) (0.0-7.0) % Baso % (Auto) (0.0-1.5) % Neut # (Auto) (1.4-5.7) K/uL Lymph # (Auto) (0.6-2.4) K/uL Rogers # (Auto) (0.0-0.8) K/uL Eos # (Auto) (0.0-0.7) K/uL Baso # (Auto) (0.0-0.1) K/uL Nucleated RBC % /100WBC Nucleated RBCs # K/uL Sodium (136-146) mmol/L Potassium (3.5-5.1) mmol/L Chloride (98-110) mmol/L Carbon Dioxide (21-31) mmol/L BUN (6.0-23.0) mg/dL Creatinine (0.6-1.5) mg/dL Est Cr Clr Drug Dosing mL/min Estimated GFR (MDRD) ml/min Glucose (60-110) mg/dL POC Glucose 229 H 217 H (60-110) mg/dL Calcium (8.8-10.8) mg/dL Total Bilirubin (0.1-1.5) mg/dL AST (5-40) IU/L ALT (8-54) IU/L Alkaline Phosphatase (40-150) Total Protein (6.0-8.0) g/dL Albumin (3.5-5.0) g/dL Globulin (2.0-3.5) g/dL Albumin/Globulin Ratio (1.3-2.8) TSH 3rd Generation 0.99 (0.47-5.0) uIU/mL Ethyl Alcohol mg/dL Meds: Medications Discontinued Medications Generic Name Dose Route Start Last Admin Trade Name Freq PRN Reason Stop Dose Admin Sodium Chloride 1,000 mls @ 999 mls/hr 11/18/17 05:54 11/18/17 06:21 Normal Saline IV 11/18/17 06:54 999 mls/hr STAT ONE Administration Insulin Human Regular 10 unit 11/18/17 07:12 11/18/17 07:41 Novolin R IVPUSH 11/18/17 07:13 10 units ONETIME ONE Administration Protocol Lorazepam 1 mg 11/18/17 05:54 11/18/17 06:35 Ativan IVPUSH 11/18/17 05:55 Not Given ONETIME ONE Lorazepam 1 mg 11/18/17 07:22 11/18/17 07:38 Ativan IVPUSH 11/18/17 07:23 1 mg ONETIME ONE Administration Ondansetron HCl 8 mg 11/18/17 05:54 11/18/17 06:27 Zofran IVPUSH 11/18/17 05:55 8 mg ONETIME ONE Administration Departure - Departure Time of Disposition: 10:13 Disposition: Refer to Observation Clinical Impression: Dehydration, DM type 2 (diabetes mellitus, type 2), Panic attack, Vomiting, Uncontrolled diabetes mellitus - Discharge Information Referrals: PCP,None [Primary Care Provider] - Forms: ED Department Discharge - My Orders Last 24 Hours: My Active Orders 11/18/17 05:55 UA W/MICROSCOPIC [URIN] Stat 11/18/17 06:15 DRUG SCREEN, URINE [URCHEM] Stat 11/18/17 07:32 EKG Documentation Completion [RC] STAT 11/18/17 08:24 Blood Glucose Check, Bedside [RC] ONETIME - Assessment/Plan Last 24 Hours: My Active Orders 11/18/17 05:55 UA W/MICROSCOPIC [URIN] Stat 11/18/17 06:15 DRUG SCREEN, URINE [URCHEM] Stat 11/18/17 07:32 EKG Documentation Completion [RC] STAT 11/18/17 08:24 Blood Glucose Check, Bedside [RC] ONETIME
[2017-11-18] MEDS ORDERED: Insulin Regular, Human 100 Units/ML 10 ML Vial IVPUSH ONE (07:12)
--- NOTE | 2017-11-18 08:53 | CR ---
EXAMINATION: Portable chest radiograph. HISTORY: Shortness of breath. FINDINGS: The trachea is midline. The cardiomediastinal silhouette is within normal limits. No pulmonary infilt rates, effusions or pneumothorax. Osseous structures appear unremarkable. IMPRESSION: No acute cardiopulmonary process.
[2017-11-18] MEDS ORDERED: Promethazine 25 MG/ML SDV IM PRN (11:34)
[2017-11-18] MEDS ORDERED: Pantoprazole 40 MG Vial IVPUSH ONE (11:34)
--- NOTE | 2017-11-18 12:23 | PCM.HP ---
H&P History of Present Illness - General Admit Problem/Dx: Admission Diagnosis/Problem Admission Diagnosis/Problem Dehydration - History of Present Illness Initial Comments - Free Text/Narative: 52 yo female with pmh of noninsulin dependent DM, anxiety disorder, chronic abdominal pain who presents to the ED with panic attack and complaints of nausea and vomiting. She was given ativan for which she became lethargic for which ED provider requested observing on medical floor. On my interview she is much more alert and complains of anxiety. Her abdominal pain and nausea have been stable but persistent for months. She denies any diarrhea, blood in stool or fevers. She denies any suicidal ideation. - Related Data Allergies/Adverse Reactions: Allergies Allergy/AdvReac Type Severity Reaction Status Date / Time latex Allergy Rash Verified 10/06/17 19:41 Sulfa (Sulfonamide Allergy Stomach Verified 10/06/17 19:41 Antibiotics) Upset sulfur dioxide Allergy Stomach Verified 11/18/17 06:04 Upset Home Medications: Home Meds . 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: Musculoskeletal History: Reports: Back Pain, Chronic Neurological History: Reports: None Psychiatric History: Reports: Anxiety, Depression Endocrine/Metabolic History: Reports: Diabetes, Type II Other Endocrine/Metabolic History: Pt questions this Dx Hematologic History: Reports: Other (See Below) Other Hematologic History: States "bacterium in blood" Immunologic History: Reports: None Oncologic (Cancer) History: Reports: Ovarian Dermatologic History: Reports: Eczema - Infectious Disease History Infectious Disease History: Reports: Chicken Pox - Past Surgical History Head Surgeries/Procedures: Reports: None HEENT Surgical History: Reports: None Cardiovascular Surgical History: Reports: None GI Surgical History: Reports: None Female Surgical History: Reports: Hysterectomy, Salpingo-Oophorectomy Endocrine Surgical History: Reports: None Musculoskeletal Surgical History: Reports: Carpal Tunnel Oncologic Surgical History: Reports: Other (See Below) - History Comment History Comment: Son says she's been evaluated for these sxs in past but doesn' t recall where w/u was done (including CT of abd). No EGD ever done. The h pylori was dx'd by serologies. Social & Family History - Family History Family Medical History: Noncontributory Cardiac: Reports: Hypertension Other Cardiac Family History: Mother, Aunt Respiratory: Reports: COPD Other Respiratory Family Hisory: Uncle GI: Reports: None Neurological: Reports: Other (See Below) Other Neurological Family History: Stroke-Grandmother Endocrine/Metabolic: Reports: Diabetes, type II - Tobacco Use Smoking Status *Q: Current Every Day Smoker Years of Tobacco use: 35 Packs/Tins Daily: 0.5 Second Hand Smoke Exposure: Yes - Caffeine Use Caffeine Use: Reports: None - Alcohol Use Days Per Week of Alcohol Use: 2 Number of Drinks Per Day: 2 Total Drinks Per Week: 4 - Recreational Drug Use Recreational Drug Use: No - Living Situation & Occupation Living situation: Reports: Single Occupation: Unemployed H&P Review of Systems - Review of Systems: Review Of Systems: ROS reveals no pertinent complaints other than HPI. Exam - Exam Exam: See Below - Vital Signs Vital Signs: Last Vital Signs Temp 37.1 C 11/18/17 11:05 Pulse 91 11/18/17 11:05 Resp 20 11/18/17 11:05 BP 147/83 H 11/18/17 11:05 Pulse Ox 95 11/18/17 10:26 Weight: 56 kg - Exam General: Alert, Oriented HEENT: Mucosa Moist & [place] Lungs: Clear to Auscultation, Normal Respiratory Effort Cardiovascular: Regular Rate, Regular Rhythm GI/Abdominal Exam: Soft, Non-Tender, No Mass, Pelvis Stable. No: Distended, Guarding Extremities: Non-Tender, No Pedal Edema Skin: Warm, Dry, Intact - Patient Data Result Diagrams: 11/18/17 06:25 11/18/17 06:25 *Q Meaningful Use (ADM) - VTE *Q VTE Criteria *Q: - Stroke *Q Stroke Criteria *Q: - AMI *Q AMI Criteria *Q: Problem List Initiated/Reviewed/Updated: Yes Orders Last 24hrs: Active Orders 24 hr Category Date Time Status Antiembolic Devices [RC] PER UNIT ROUTINE Care 11/18/17 11:35 Active Blood Glucose Check, Bedside [RC] TIDAC Care 11/18/17 12:16 Ordered Oxygen Therapy [RC] PRN Care 11/18/17 11:34 Active Up ad Amie [RC] ASDIRECTED Care 11/18/17 11:34 Active VTE/DVT Education [RC] PER UNIT ROUTINE Care 11/18/17 11:34 Active Vital Signs [RC] Q4H Care 11/18/17 11:34 Active Clear Liquid Diet [DIET] Diet 11/18/17 Breakfast Active CBC WITH AUTO DIFF [HEME] AM Lab 11/19/17 05:11 Ordered COMPREHENSIVE METABOLIC PN,CMP [CHEM] AM Lab 11/19/17 05:11 Ordered Insulin Aspart [NovoLOG] Med 11/18/17 17:00 Ordered See Protocol SUBCUT TIDAC Ondansetron [Zofran] Med 11/18/17 11:34 Active 4 mg IVPUSH Q4H PRN Promethazine [Phenergan] Med 11/18/17 11:34 Active 25 mg IM Q6H PRN Sodium Chloride 0.9% @ 125 MLS/HR (1,000ml) Med 11/18/17 12:15 Ordered Sodium Chloride 0.9% [Normal Saline] 1,000 ml IV ASDIRECTED Sequential Compression Device [OM.PC] Per Unit Routine Oth 11/18/17 11:34 Ordered Resuscitation Status Routine Resus Stat 11/18/17 11:34 Ordered Medication Orders Sodium Chloride (Normal Saline) 1,000 mls @ 125 mls/hr IV ASDIRECTED ANTHONY Insulin Aspart (Novolog) 0 unit SUBCUT TIDAC ANTHONY PRN Reason: Protocol Ondansetron HCl (Zofran) 4 mg IVPUSH Q4H PRN PRN Reason: Nausea Promethazine HCl (Phenergan) 25 mg IM Q6H PRN PRN Reason: Nausea Assessment/Plan Comment:: 52 yo female with pmh of chronic abdominal pain who presents with panic attack associated with nausea and vomiting. We will hydrate with IV fluids and give antiemetics prn. Patient is anxious and wants to leave but is agreeable to stay to talk with Dr. Pop.
[2017-11-18] MEDS: Sodium Chloride 0.9% 1,000 ML IV SCH ×2 (12:55→20:58)
--- NOTE | 2017-11-18 15:16 | PCM.SN ---
- Free Text/Narrative Note: Dr. Pop spoke with patient and believes patient's anxiety is likely 2/2 to her GI symptoms. Patient may be withdrawing. He recommend topamax 25mg BID, CIWA protocol, thiamine and folic acid.
[2017-11-18] MEDS: Topiramate 50 MG Tab PO SCH ×2 (15:45→15:47)
[2017-11-18] MEDS: Thiamine 200 MG/2 ML MDV IV SCH (15:46)
[2017-11-18] MEDS: Folic Acid 50 MG/10 ML MDV SUBCUT SCH ×2 (15:46→15:54)
[2017-11-18] MEDS: Insulin Aspart 100 Units/ML 3 ML Pen SUBCUT SCH (17:51)
[2017-11-18] MEDS ORDERED: Acetaminophen 325 MG Tab PO SCH (20:30)
[2017-11-18] MEDS ORDERED: Acetaminophen 325 MG Tab PO PRN (20:31)
[2017-11-19] MEDS: LORazepam 2 MG/ML SDV IVPUSH PRN (01:33)
[2017-11-19] MEDS ORDERED: Acetaminophen 325 MG Tab PO SCH (09:00)
[2017-11-19] MEDS: Topiramate 50 MG Tab PO SCH ×2 (14:40→15:37)
[2017-11-19] MEDS: Insulin Aspart 100 Units/ML 3 ML Pen SUBCUT SCH ×2 (14:41→18:12)
[2017-11-19] MEDS: Folic Acid 50 MG/10 ML MDV SUBCUT SCH (14:41)
[2017-11-19] MEDS: Thiamine 200 MG/2 ML MDV IV SCH (14:41)
--- NOTE | 2017-11-19 15:14 | CR ---
EXAM DATE: 11/18/17 PATIENT'S AGE: 52 Patient: MITCHELL MCCRAY Facility: [place], [place] Site Site : [id number] Study: XRay Abdomen [id number]/18/[id number] 4:53:42 PM Ordering Physician: KURT PALMA MD Final Report: INDICATION: Abdominal pain TECHNIQUE: Abdomen 3 view. COMPARISON: None FINDINGS: Bowel: Diffuse colonic fecal retention. Soft tissues: No sign of free air. No sign of soft tissue mass. No suspicious calcifications. Bones: Unremarkable for age. IMPRESSION: Diffuse colonic fecal retention. Dictated by Elvin Curtis MD @ Nov 19 2017 12:28PM (Electronic Signature) Report Signed by Proxy. COLETTE
--- NOTE | 2017-11-19 17:41 | PCM.PN ---
- Review of Systems Systems Review Comment:: nausea and abdominal pain has been improving - Patient Data Vitals - Most Recent: Last Vital Signs Temp 37.6 C 11/19/17 12:00 Pulse 89 11/19/17 12:00 Resp 16 11/19/17 12:00 BP 114/70 11/19/17 12:00 Pulse Ox 94 L 11/19/17 12:00 Weight - Most Recent: 56 kg Lab Results Last 24 Hours: Laboratory Results - last 24 hr 11/18/17 11/19/17 11/19/17 Range/Units 16:36 01:00 01:00 POC Glucose 295 H (60-110) mg/dL Urine Color YELLOW Urine Appearance CLEAR Urine pH 6.0 (5.0-8.0) Ur Specific [place] >= 1.030 (1.001-1.035) Urine Protein 30 (NEGATIVE) mg/dL Urine Glucose (UA) >=1000 (NEGATIVE) mg/dL Urine Ketones >=80 (NEGATIVE) mg/dL Urine Occult Blood SMALL H (NEGATIVE) Urine Nitrite NEGATIVE (NEGATIVE) Urine Bilirubin NEGATIVE (NEGATIVE) Urine Urobilinogen 0.2 (<2.0) EU/dL Ur Leukocyte Esterase NEGATIVE (NEGATIVE) Urine RBC 1-2 (0-2/HPF) Urine WBC 0-2 (0-5/HPF) Ur Epithelial Cells FEW (NONE-FEW) Urine Bacteria FEW (NEGATIVE) Urine Opiates Screen NEGATIVE (NEGATIVE) Ur Oxycodone Screen NEGATIVE (NEGATIVE) Urine Methadone Screen NEGATIVE (NEGATIVE) Ur Barbiturates Screen NEGATIVE (NEGATIVE) Ur Phencyclidine Scrn NEGATIVE (NEGATIVE) Ur Amphetamine Screen NEGATIVE (NEGATIVE) U Methamphetamines Scrn NEGATIVE (NEGATIVE) U Benzodiazepines Scrn NEGATIVE (NEGATIVE) U Cocaine Metab Screen NEGATIVE (NEGATIVE) U Marijuana (THC) Screen NEGATIVE (NEGATIVE) Med Orders - Current: Current Medications Acetaminophen (Tylenol) 325 mg PO Q4H PRN PRN Reason: Pain Folic Acid (Folic Acid) 1 mg SUBCUT DAILY [facility] Last Admin: 11/19/17 14:41 Dose: Not Given Sodium Chloride (Normal Saline) 1,000 mls @ 125 mls/hr IV ASDIRECTED [facility] Last Admin: 11/18/17 20:58 Dose: 125 mls/hr Insulin Aspart (Novolog) 0 unit SUBCUT TIDAC [facility] PRN Reason: Protocol Last Admin: 11/19/17 14:41 Dose: Not Given Lorazepam (Ativan) 0 mg IVPUSH Q4H PRN; Protocol PRN Reason: aggitation Last Admin: 11/19/17 01:33 Dose: 2 mg Ondansetron HCl (Zofran) 4 mg IVPUSH Q4H PRN PRN Reason: Nausea Promethazine HCl (Phenergan) 25 mg IM Q6H PRN PRN Reason: Nausea Thiamine HCl (Vitamin B-1) 100 mg IV DAILY [facility] Last Admin: 11/19/17 14:41 Dose: Not Given Topiramate (Topamax) 25 mg PO Q12H [facility] Last Admin: 11/19/17 15:37 Dose: 25 mg Discontinued Medications Acetaminophen (Tylenol) 325 mg PO DAILY [facility] Acetaminophen (Tylenol) 325 mg PO Q4H [facility] Last Admin: 11/18/17 23:06 Dose: Not Given Sodium Chloride (Normal Saline) 1,000 mls @ 999 mls/hr IV STAT ONE Stop: 11/18/17 06:54 Last Admin: 11/18/17 06:21 Dose: 999 mls/hr Insulin Human Regular (Novolin R) 10 unit IVPUSH ONETIME ONE PRN Reason: Protocol Stop: 11/18/17 07:13 Last Admin: 11/18/17 07:41 Dose: 10 units Lorazepam (Ativan) 1 mg IVPUSH ONETIME ONE Stop: 11/18/17 05:55 Last Admin: 11/18/17 06:35 Dose: Not Given Lorazepam (Ativan) 1 mg IVPUSH ONETIME ONE Stop: 11/18/17 07:23 Last Admin: 11/18/17 07:38 Dose: 1 mg Lorazepam (Ativan) 0.5 mg IVPUSH ONETIME ONE Stop: 11/18/17 10:27 Last Admin: 11/18/17 10:33 Dose: 0.5 mg Ondansetron HCl (Zofran) 8 mg IVPUSH ONETIME ONE Stop: 11/18/17 05:55 Last Admin: 11/18/17 06:27 Dose: 8 mg Pantoprazole Sodium (Protonix Iv) 40 mg IVPUSH ONETIME ONE Stop: 11/18/17 11:35 Last Admin: 11/18/17 12:52 Dose: 40 mg - Exam General: Alert, Cooperative, Other (cachectic) Neck: Supple Lungs: Clear to Auscultation, Normal Respiratory Effort Cardiovascular: Regular Rate, Regular Rhythm GI/Abdominal Exam: Soft, Non-Tender, No Distention Extremities: Non-Tender, No Pedal Edema - Problem List Review Problem List Initiated/Reviewed/Updated: Yes - My Orders Last 24 Hours: My Active Orders 11/18/17 16:18 DRUG SCREEN, SERUM REFLEX [REF] Routine 11/18/17 20:31 Acetaminophen [Tylenol] 325 mg PO Q4H PRN - Plan Plan:: 52 yo female with pmh of chronic abdominal pain who presents with panic attack associated with nausea and vomiting. Consulted Dr. Pop who felt patient may be going through withdrawals. Patient is on ativan and CIWA protocol. Urine drug screen negative and family reports no history of drug abuse.
--- NOTE | 2017-11-19 18:19 | CONS ---
DATE OF CONSULTATION: 11/18/2017 DATE OF : 1965 PRIMARY CARE PHYSICIAN: Shelley PCP This is a 60-minute inpatient clinical event. IDENTIFICATION: The patient is a 52-year-old female who was admitted to the inpatient Med-Surg Unit at [facility] in [place], [place], on November 18, 2017, for vomiting and lethargy. She is seen for psychiatric evaluation. 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 She states "I just don't feel right." She states that things got so bad that she was brought to the ER for evaluation "by my uncle." Evidently, while she was being assessed in the ER, she displayed "forceful vomiting" according to the staff and after being given some Ativan and antiemetics, she displayed quite a bit of lethargy and so she was admitted to the inpatient unit for further observation. At this point in time, again, the patient is stating "I don't feel right." She had complained to her primary attending that she was having anxiety, but at this point in time, she is describing significant gastric discomfort. She denies that she is suicidal or homicidal. She denies any psychotic, delusional, or paranoid symptoms. She denies any previous psychiatric history that is recent, and she is stating she would just like to get her gastric discomfort attended to at this point in time. She is denying any illicit substance use or excessive alcohol use complicating her clinical picture. She has been asked about any possible illicit substance use or excessive alcohol use or prescription medication abuse a number of times by treating staff and consulting staff, and she is denying emphatically that this is a possible complicating factor in her presentation. MEDICATIONS: Medications at the time of presentation, none. ALLERGIES: 1. Sulfa. 2. Latex. PAST MEDICAL HISTORY: 1. Type 2 diabetes. 2. Abdominal pain of unknown etiology. REVIEW OF SYSTEMS: Aside from endocrine and GI, all other major organ systems appear negative at this point in time. No acute difficulties or complications. FAMILY PSYCHIATRIC AND CD HISTORY: None reported. PAST PSYCHIATRIC AND CD HISTORY: The patient reports one psychiatric hospitalization in the remote past. Otherwise, denies any previous psychiatric history. SOCIAL HISTORY: The patient was born and raised in [place], [place]. 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 MENTAL STATUS EXAM: The patient is a 52-year-old white female who is writhing around on her bed in discomfort. She is alert and oriented x2 to person and place, but not to date. Psychomotor activity is agitated. Gait and station are not observed as this patient is lying in bed. Mood is uncomfortable. Affect is consistent with stated mood and, again, the patient is moving around in bed restlessly with apparent discomfort that she is attributing to her GI area. It does appear as if she may be experiencing drug withdrawal given her level of writhing movements and agitation. There is no behavioral or stated evidence of acute suicidal or homicidal ideation or acute psychotic, delusional, or paranoid symptoms. Thought processes are significant for preoccupation with bodily aches and pains. There are no manic symptoms or loose associations evident. Judgment and insight appear impaired secondary to her medical issues. Motivation for help appears fair to good. VITAL SIGNS: 147/83, 91, 20, 37.1 degrees Celsius. IMPRESSION: [place] I: 1. Suspected substance dependence. 2. Suspected withdrawal syndrome. 3. Anxiety disorder, not otherwise specified, F41.9, secondary to suspected withdrawal syndrome. 4. Depression, not otherwise specified, F32.9, secondary to substance withdrawal syndrome. [place] II: No diagnosis at this time. [place] III: 1. Abdominal pain of unknown etiology. 2. Diabetes type 2 history. 3. Suspected withdrawal syndrome. [place] IV: Severe. [place] V: 50 to 55. PLAN: 1. Would obtain urine tox and serum tox to see if the patient has any illicit substances, opioids, meth, cocaine, or alcohol in her system at this point in time that could lead to further knowledge of what is occurring with the patient. 2. Move the patient to [facility] Protocol. 3. Topamax 25 mg b.i.d. 4. Seroquel 25 mg at bedtime. 5. Thiamine supplementation. 6. Folic acid supplementation. 7. Working with Social Work trying to obtain collateral information regarding circumstances of the patient's presentation from a reported uncle who brought her to the emergency room department. 8. Recommend that primary medical treatment team initiate further GI workup and medical workup involving imaging to rule out any structural abnormalities contributing to the patient's presentation. 9. I will continue to follow up with the patient on a psychiatric basis as needed going forward while she remains on inpatient medical unit. 10.We will follow up with the patient sooner if there are any complications in the interim. 11.It does not appear that the patient is suffering from any primary psychiatric disorder at this point in time that is causing her inpatient presentation. 12.Crisis plan is in place. BARBIE / ROLF /[id number]
[2017-11-19] MEDS: Sodium Chloride 0.9% 1,000 ML IV SCH (21:09)
[2017-11-19] MEDS: Ondansetron 4 MG/2 ML SDV IVPUSH PRN (22:41)
[2017-11-20] MEDS: LORazepam 2 MG/ML SDV IVPUSH PRN ×2 (00:07→07:28)
[2017-11-20] MEDS: Topiramate 50 MG Tab PO SCH ×2 (04:01→14:55)
[2017-11-20 05:50] LABS: CHLORIDE,CL 107 mmol/L (98-110); SODIUM,NA 138 mmol/L (136-146)
[2017-11-20] MEDS: Sodium Chloride 0.9% 1,000 ML IV SCH ×2 (05:57→13:59)
[2017-11-20] MEDS: Ondansetron 4 MG/2 ML SDV IVPUSH PRN ×2 (07:29→11:39)
[2017-11-20] MEDS: Thiamine 200 MG/2 ML MDV IV SCH (08:49)
[2017-11-20] MEDS: Folic Acid 50 MG/10 ML MDV SUBCUT SCH (08:55)
[2017-11-20] MEDS: Insulin Aspart 100 Units/ML 3 ML Pen SUBCUT SCH ×3 (09:09→16:42)
[2017-11-20] MEDS ORDERED: Haloperidol Lactate 5 MG/ML SDV IM ONE (18:56)
[2017-11-20] MEDS: QUEtiapine 25 MG Tab PO ONE (19:00)
[2017-11-21] MEDS: Sodium Chloride 0.9% 1,000 ML IV SCH ×3 (01:35→17:57)
[2017-11-21] MEDS: Topiramate 50 MG Tab PO SCH ×2 (05:49→17:49)
--- NOTE | 2017-11-21 07:41 | PCM.PN ---
- General Info Date of Service: 11/21/17 Subjective Update: Patient had several outbursts yesterday and refused all medications. She did receive her Seroquel for the first time today. Her mood has been improved and is stable. No recurrence of nausea and vomiting today. She is more responsive to questioning today. - Review of Systems General: Reports: No Symptoms HEENT: Reports: No Symptoms Pulmonary: Reports: No Symptoms Cardiovascular: Reports: No Symptoms Gastrointestinal: Reports: Abdominal Pain, Nausea, Vomiting Genitourinary: Reports: No Symptoms Musculoskeletal: Reports: No Symptoms Skin: Reports: No Symptoms Neurological: Reports: No Symptoms Psychiatric: Reports: Depression, Mood Lability, Anxiety. Denies: Suicidal Ideation, Homicidal Ideation - Patient Data Vitals - Most Recent: Last Vital Signs Temp 37.1 C 11/21/17 04:00 Pulse 90 11/21/17 04:00 Resp 20 11/21/17 04:00 BP 148/76 H 11/21/17 04:00 Pulse Ox 95 11/21/17 04:00 Weight - Most Recent: 56 kg I&O - Last 24 Hours: Intake & Output 11/20/17 11/21/17 11/21/17 22:59 06:59 14:59 Intake Total 250 2461 Output Total 1550 700 Balance -1300 1761 Lab Results Last 24 Hours: Laboratory Results - last 24 hr 11/20/17 11/20/17 11/21/17 Range/Units 11:33 16:24 06:57 POC Glucose 213 H 192 H 201 H (60-110) mg/dL Med Orders - Current: Current Medications Acetaminophen (Tylenol) 325 mg PO Q4H PRN PRN Reason: Pain Last Admin: 11/20/17 05:25 Dose: 325 mg Folic Acid (Folic Acid) 1 mg SUBCUT DAILY [facility] Last Admin: 11/20/17 08:55 Dose: 1 mg Sodium Chloride (Normal Saline) 1,000 mls @ 125 mls/hr IV ASDIRECTED ANTHONY Last Admin: 11/21/17 01:35 Dose: 125 mls/hr Insulin Aspart (Novolog) 0 unit SUBCUT TIDAC [facility] PRN Reason: Protocol Last Admin: 11/20/17 16:42 Dose: Not Given Lorazepam (Ativan) 0 mg IVPUSH Q4H PRN; Protocol PRN Reason: aggitation Last Admin: 11/20/17 07:28 Dose: 1 mg Ondansetron HCl (Zofran) 4 mg IVPUSH Q4H PRN PRN Reason: Nausea Last Admin: 11/20/17 11:39 Dose: 4 mg Promethazine HCl (Phenergan) 25 mg IM Q6H PRN PRN Reason: Nausea Quetiapine Fumarate (Seroquel) 25 mg PO ONETIME ONE Stop: 11/21/17 09:01 Thiamine HCl (Vitamin B-1) 100 mg IV DAILY [facility] Last Admin: 11/20/17 08:49 Dose: 100 mg Topiramate (Topamax) 25 mg PO Q12H [facility] Last Admin: 11/21/17 05:49 Dose: Not Given Discontinued Medications Acetaminophen (Tylenol) 325 mg PO DAILY [facility] Acetaminophen (Tylenol) 325 mg PO Q4H [facility] Last Admin: 11/18/17 23:06 Dose: Not Given Haloperidol Lactate (Haldol) 10 mg IM ONETIME ONE Stop: 11/20/17 18:57 Sodium Chloride (Normal Saline) 1,000 mls @ 999 mls/hr IV STAT ONE Stop: 11/18/17 06:54 Last Admin: 11/18/17 06:21 Dose: 999 mls/hr Insulin Human Regular (Novolin R) 10 unit IVPUSH ONETIME ONE PRN Reason: Protocol Stop: 11/18/17 07:13 Last Admin: 11/18/17 07:41 Dose: 10 units Lorazepam (Ativan) 1 mg IVPUSH ONETIME ONE Stop: 11/18/17 05:55 Last Admin: 11/18/17 06:35 Dose: Not Given Lorazepam (Ativan) 1 mg IVPUSH ONETIME ONE Stop: 11/18/17 07:23 Last Admin: 11/18/17 07:38 Dose: 1 mg Lorazepam (Ativan) 0.5 mg IVPUSH ONETIME ONE Stop: 11/18/17 10:27 Last Admin: 11/18/17 10:33 Dose: 0.5 mg Ondansetron HCl (Zofran) 8 mg IVPUSH ONETIME ONE Stop: 11/18/17 05:55 Last Admin: 11/18/17 06:27 Dose: 8 mg Pantoprazole Sodium (Protonix Iv) 40 mg IVPUSH ONETIME ONE Stop: 11/18/17 11:35 Last Admin: 11/18/17 12:52 Dose: 40 mg Quetiapine Fumarate (Seroquel) 25 mg PO ONETIME ONE Stop: 11/20/17 18:24 - Exam General: Alert, Oriented HEENT: Pupils Equal, Pupils Reactive, EOMI, Mucous Membr. Moist/[place] Neck: Supple Lungs: Clear to Auscultation, Normal Respiratory Effort Cardiovascular: Regular Rate, Regular Rhythm GI/Abdominal Exam: Normal Bowel Sounds, Soft, Non-Tender, No Distention Extremities: Normal Inspection, Normal Capillary Refill Peripheral Pulses: 2+: Dorsalis Pedis (L), Dorsalis Pedis (R) Skin: Warm, Dry, Intact Neurological: No New Focal Deficit Psy/Mental Status: Alert, Normal Affect, Normal Mood. No: Suicidal Ideation, Homicidal Ideation, Hallucinations, Withdrawal Symptoms - Problem List Review Problem List Initiated/Reviewed/Updated: Yes - My Orders Last 24 Hours: My Active Orders 11/21/17 09:00 QUEtiapine [SEROquel] 25 mg PO ONETIME ONE - Plan Plan:: 52 yo female with pmh of chronic abdominal pain who was admitted for panic attack associated with nausea and vomiting. Patient began having episodic outbursts of anger and refusing medication. She was discovered to be self- inducing the vomiting. On 11/19 Psych was consulted who rec's starting Seroquel , Topiramate and Ativan as per [facility] protocol. Urine drug screen negative and family reports no history of drug abuse. Patient refused both Seroquel and Topiramate. Ativan was continued as per protocol. There was no improvement and episodes continued. On 11/20 patients uncle whom she currently resides with was available and informed us over the past 3 years patient has developed severe depression with anger outbursts. Patients son was contacted who confirmed accuracy of the uncles statements. Patients uncle also informed us that patient is nonadherent to medications at home. This is likely reason for her uncontrolled diabetes with HbA1C of 12.6%. Patients uncle informed us that he will not accept her into his home if she does not accept treatment. On 11/21 patient agreed to take Seroquel. Her mood was improved and she was more willing to answer questions and informed us that she will follow instructions. She also informed us that she self induces vomiting because it makes her feel better and she does only when she gets a severe epigastric pain with eating and the vomiting makes her feel better. She states she has had multiple EGD in the past but no etiology was found. She also informed us that She is willing to take the Seroquel but she does not want to take Ativan because she does not like how it feels. Assessment/Plan: 1. Depression, Anxiety, Anger Outbursts -likely secondary to underlying psych condition -patient is fully alert and oriented, stable vitals, labs wnl -today patient has done well and her mood is good and stable, she resumed eating full meals, no recurrence of nausea/vomiting plan: -continue Seroquel 25 mg PO BID -DC Ativan -continue to monitor and transfer to inpatient psych if development of any symptoms 2. Nausea and Vomiting -likely secondary to underlying psych condition -no episodes today plan: -as per #1 -start protonix 40 mg IV QD -refer to general surgery at discharge for out-patient EGD 3. Uncontrolled Diabetes -continue blood glucose monitoring and Insulin per sliding scale
--- NOTE | 2017-11-21 07:41 | PCM.PN ---
- General Info Date of Service: 11/20/17 Admission Dx/Problem (Free Text): Admission Diagnosis/Problem Admission Diagnosis/Problem Dehydration Subjective Update: 52 year old fm admitted for dehydration and altered mental status. Since admission she has developed severe paranoid thoughts. She continues to self- induce vomiting multiple times daily. SHe lives with her uncle who she contacted to have pick her up but when he arrived he informed us that he will not take her back to his home unless she is back to her baseline. - Review of Systems Systems Review Comment:: unable to obtain due to patient not cooperating - Patient Data Vitals - Most Recent: Last Vital Signs Temp 37.1 C 11/21/17 04:00 Pulse 90 11/21/17 04:00 Resp 20 11/21/17 04:00 BP 148/76 H 11/21/17 04:00 Pulse Ox 95 11/21/17 04:00 Weight - Most Recent: 56 kg I&O - Last 24 Hours: Intake & Output 11/20/17 11/21/17 11/21/17 22:59 06:59 14:59 Intake Total 250 2461 Output Total 1550 700 Balance -1300 1761 Lab Results Last 24 Hours: Laboratory Results - last 24 hr 11/20/17 11/20/17 11/21/17 Range/Units 11:33 16:24 06:57 POC Glucose 213 H 192 H 201 H (60-110) mg/dL Med Orders - Current: Current Medications Acetaminophen (Tylenol) 325 mg PO Q4H PRN PRN Reason: Pain Last Admin: 11/20/17 05:25 Dose: 325 mg Folic Acid (Folic Acid) 1 mg SUBCUT DAILY [facility] Last Admin: 11/20/17 08:55 Dose: 1 mg Sodium Chloride (Normal Saline) 1,000 mls @ 125 mls/hr IV ASDIRECTED ANTHONY Last Admin: 11/21/17 01:35 Dose: 125 mls/hr Insulin Aspart (Novolog) 0 unit SUBCUT TIDAC [facility] PRN Reason: Protocol Last Admin: 11/20/17 16:42 Dose: Not Given Lorazepam (Ativan) 0 mg IVPUSH Q4H PRN; Protocol PRN Reason: aggitation Last Admin: 11/20/17 07:28 Dose: 1 mg Ondansetron HCl (Zofran) 4 mg IVPUSH Q4H PRN PRN Reason: Nausea Last Admin: 11/20/17 11:39 Dose: 4 mg Promethazine HCl (Phenergan) 25 mg IM Q6H PRN PRN Reason: Nausea Quetiapine Fumarate (Seroquel) 25 mg PO ONETIME ONE Stop: 11/21/17 09:01 Thiamine HCl (Vitamin B-1) 100 mg IV DAILY [facility] Last Admin: 11/20/17 08:49 Dose: 100 mg Topiramate (Topamax) 25 mg PO Q12H [facility] Last Admin: 11/21/17 05:49 Dose: Not Given Discontinued Medications Acetaminophen (Tylenol) 325 mg PO DAILY [facility] Acetaminophen (Tylenol) 325 mg PO Q4H [facility] Last Admin: 11/18/17 23:06 Dose: Not Given Haloperidol Lactate (Haldol) 10 mg IM ONETIME ONE Stop: 11/20/17 18:57 Sodium Chloride (Normal Saline) 1,000 mls @ 999 mls/hr IV STAT ONE Stop: 11/18/17 06:54 Last Admin: 11/18/17 06:21 Dose: 999 mls/hr Insulin Human Regular (Novolin R) 10 unit IVPUSH ONETIME ONE PRN Reason: Protocol Stop: 11/18/17 07:13 Last Admin: 11/18/17 07:41 Dose: 10 units Lorazepam (Ativan) 1 mg IVPUSH ONETIME ONE Stop: 11/18/17 05:55 Last Admin: 11/18/17 06:35 Dose: Not Given Lorazepam (Ativan) 1 mg IVPUSH ONETIME ONE Stop: 11/18/17 07:23 Last Admin: 11/18/17 07:38 Dose: 1 mg Lorazepam (Ativan) 0.5 mg IVPUSH ONETIME ONE Stop: 11/18/17 10:27 Last Admin: 11/18/17 10:33 Dose: 0.5 mg Ondansetron HCl (Zofran) 8 mg IVPUSH ONETIME ONE Stop: 11/18/17 05:55 Last Admin: 11/18/17 06:27 Dose: 8 mg Pantoprazole Sodium (Protonix Iv) 40 mg IVPUSH ONETIME ONE Stop: 11/18/17 11:35 Last Admin: 11/18/17 12:52 Dose: 40 mg Quetiapine Fumarate (Seroquel) 25 mg PO ONETIME ONE Stop: 11/20/17 18:24 - Exam General: Alert. No: Cooperative HEENT: Pupils Equal, Pupils Reactive, Mucous Membr. Moist/[place] Neck: Supple Lungs: Clear to Auscultation, Normal Respiratory Effort GI/Abdominal Exam: Normal Bowel Sounds, Soft, No Distention Extremities: Normal Inspection Skin: Intact Neurological: Normal Gait, Normal Speech Psy/Mental Status: Labile Mood, Anxious, Agitated. No: Suicidal Ideation, Homicidal Ideation, Hallucinations - Problem List Review Problem List Initiated/Reviewed/Updated: Yes - My Orders Last 24 Hours: My Active Orders 11/21/17 09:00 QUEtiapine [SEROquel] 25 mg PO ONETIME ONE - Plan Plan:: 52 yo female with pmh of chronic abdominal pain admitted for self-induced vomiting, altered mental status and paranoid thoughts. Consulted Dr. Pop who rec's starting Seroquel. She is on [facility] protocol and Ativan PRN for agitation.
[2017-11-21] MEDS: Insulin Aspart 100 Units/ML 3 ML Pen SUBCUT SCH ×3 (08:00→17:51)
[2017-11-21] MEDS: Thiamine 200 MG/2 ML MDV IV SCH (08:48)
[2017-11-21] MEDS: Folic Acid 50 MG/10 ML MDV SUBCUT SCH (08:50)
[2017-11-21] MEDS ORDERED: QUEtiapine 25 MG Tab PO ONE (09:00)
[2017-11-21 10:09] LABS: CHLORIDE,CL 103 mmol/L (98-110); SODIUM,NA 135 mmol/L (136-146)
--- NOTE | 2017-11-21 14:42 | PCM.SN ---
- Free Text/Narrative Note: Called to patients room by nursing to talk with patients uncle and son. Patient is currently living with her uncle. He states that patient has been having these periods of isolation where she stays in her on room for long periods of time. Also has witnessed her multiple times trying to induce vomiting with her finger. States that he can not take care of her while she is in this condition. Son states that "this is not my mother". Reports episodes of calling him at all hours of the night crying and being unconsolable. She has been "depressed" for sometime now and after loosing several members of her family and is not "acting like herself". Discussed possible transfer for inpatient [facility] for further evaluation and they both strongly agree. Both state that she often hides what medication she is supposed to be taking and feel that she would be unsafe at this moment to be discharged home. Medically patient has been stable here for 2 days. Talked with patient and she currently is amiable to transfering to another facility for further treatment. She may benefit from a GI consult as she may have some gastroparesis associated with her diabetes which could be complicating her nausea.
--- NOTE | 2017-11-21 14:53 | PCM.SN ---
- Free Text/Narrative Note: Patient's son Jesús would like to be notified when a decision has been made and a facility has accepted the patient. His number is .
[2017-11-21] MEDS ORDERED: Pantoprazole 40 MG Vial IVPUSH ONE (16:28)
[2017-11-21] MEDS: QUEtiapine 25 MG Tab PO ONE (20:08)
[2017-11-21] MEDS: QUEtiapine 25 MG Tab PO SCH (20:46)
[2017-11-21] MEDS: Nicotine 7 MG/24 Hr Patch TRDERM SCH (21:24)
[2017-11-22] MEDS: Sodium Chloride 0.9% 1,000 ML IV SCH (02:12)
[2017-11-22] MEDS: Pantoprazole 40 MG Vial IVPUSH SCH ×2 (08:40→09:19)
[2017-11-22] MEDS: Thiamine 200 MG/2 ML MDV IV SCH (08:41)
[2017-11-22] MEDS: Insulin Aspart 100 Units/ML 3 ML Pen SUBCUT SCH ×3 (08:42→18:15)
[2017-11-22] MEDS: Folic Acid 50 MG/10 ML MDV SUBCUT SCH (08:44)
[2017-11-22] MEDS: QUEtiapine 25 MG Tab PO SCH (08:46)
[2017-11-22] MEDS ORDERED: Pantoprazole 40 MG Vial IVPUSH SCH (09:00)
[2017-11-22] MEDS: Nicotine 7 MG/24 Hr Patch TRDERM SCH (12:54)
[2017-11-22 13:47] VITALS: BP 147/74
--- NOTE | 2017-11-22 15:19 | PCM.DCSUM1 ---
Discharge Summary - Hospital Course Free Text/Narrative:: 52 year old fm hospitalized from 11/18/17 to 11/22/17. She was initially admitted for for nausea, vomiting and weakness. She complained of chronic abdominal pain that is intermittent and causes her to get very anxious and results in nausea and vomiting. Symptoms worsened for a few days and she was unable to tolerate oral intake and was therefore admitted for admitted for rehydration and antiemetics. She had a history of type 2 diabetes and her HbA1C was found to be 12.6%. She admitted to noncompliance to her insulin. She was treated with ISS. Shortly after admission she was discovered to be self inducing the vomiting using her fingers. When questioned about this she began to have angry outbursts. Her mood worsened and she became extremely irritable with rapidly alternating moods. On 11/19 Tele-Psych was consulted who recommended Ativan with CIWA protocol for possible withdrawal and Seroquel for irritability and depression. Patients outbursts and irritability worsened. She began refusing all oral medications. Her family members arrived informed and informed us that her symptoms have been occurring for 3 years and began after of her parents. She also lost over 200 lbs over this time. She also would lock herself in her room for hours on ends and they were concerned about self induced vomiting. They insisted on inpatient hospitalization for her psychiatric symptoms. This was discussed with patient and she was agreeable to transfer as long at was in [place]. On 11/21 several attempts were made to try to transfer patient for hospitalization for eating disorder. Facilities with inpatient psych wards in [facility] and [place] do not accept eating disorder patients. The only facility in the area that does is [facility] however they had no beds available. This was discussed with patient and she insisted that she did not need inpatient treatment but she was agreeable to it. She insisted that she does not have a eating disorder. She stated that she induces vomiting bc it relieves her abdominal pain and that she does not do it regularlity. The pain occcurs episodically during the week and if she gets the pain she will induce vomiting. She has a history of chronic epigastric pain that she has had multiple ED visits and previous work-up done for. She had an EGD done in 2016 that she believes may have revealed some type of esophagitis. As per electronic records, she did have EGD done however certain documents are unavailabe. She has also had HIDA scan and gastric emptying study which were also both negative and records for both these are unavailable. Patient does acknoledge that her mood changed following of her parents and was agreeable to out-patient therapy at [facility]. She had appointment already scheduled few weeks ago but it was during this current hospitalization. She also informed us that she stopped taking her insulin several months ago bc she was on the incorrect dose and her blood sugar would decrease down into the 40's and she has had syncopal episodes. Back around January 2017 she stopped taking her insulin. She then agreed to start taking her medications in the hospital as well. She requested to have her Ativan stopped bc it causes her to have altered mental status and causes her mood instability. Therefore Ativan was stopped and she was started on Seroquel. Protonix was added for possible esophageal reflux. She was monitored for 2 days and her mood improved drastically. She also reported significant improvement of her appetite and improvement of her abdominal pain. She was therefore discharged home on Seroquel 25 mg BID and Protonix 40 mg QD. She agreed to taking her insulin and rcording blood sugar but wanted to have new dose and referral to new pcp and dm educator. She was discharged home on Lantus 10 units daily and Novolog TIDAC based on high dose sliding scale. She was referred to new PCP and DM educators. She was also referred to general surgery for repeat EGD. Discharge Diagnosis/Plan: #Altered Mental Status, improved -likely multifactoral, secondary to acute on chronic depression and adverse reaction to ativan plan: 1. Seroquel 25 mg BID 2. f/u with PCP in 1 week - scheduled for 11/27/17 3. f/u at [facility] #Chronic Depression -plan as per above #Chronic Abdominal Pain -differential includes Esophageal Influx, PUD and/or IBS -previous EGD in 2016 was abnormal as per patient, records unavailable in [facility] -history of H. Pylori for which she was unable to complete therapy due to medication intolerance -pain improving with Protonix plan: 1. Protonix 40 mg PO qAM before breakfast 2. refer to general surgery for EGD - scheduled for 12/04/17 #Nausea and Vomiting, improved -plan as per above #DM T2, Uncontrolled -secondary to nonadherence -HbA1C 12.6% -patient discontinued insulin on her own January 2017 plan: 1. Lantus 10 units QD 2. Novolog TIDAC based on high dose sliding scale 3. prescribed needles/lancets/testing strips 4. f/u with PCP w/i 1 week - scheduled for 11/27/17 5. refer to DM educator #Nonadherence to Medications 1. patient educated on risks associated with not adhering to medications. She requesting reasoning and side effects associated with her medications. She stated she tolerated the medications well during hospitalization. She insists she would like to change her life and start taking her medications. She requested new PCP therefore one was arranged. SHe was informed of importance follow-up. She acknowledges understanding for instructions provided and risks associated with failure to meet them. Follow-up appointment dates and times were confirmed prior to her discharge and given to her. - Discharge Data Discharge Date: 11/22/17 Discharge Disposition: Home, Self-Care 01 Condition: Good - Discharge Plan Prescriptions/Med Rec: Blood Sugar Diagnostic [Test Strips] 1 each TIDAC #1 box Insulin Aspart [Novolog] See Protocol SQ TIDAC #1 box Insulin Glargine,Hum.Rec.Anlog [Lantus Solostar] 10 units SQ QAM #1 box Pantoprazole Sodium [Protonix] 40 mg PO DAILY 30 Days #30 tablet.dr Jose Jiang Diabetic [Bd Ultra-Fine Pen Needle] 1 each TIDAC #1 box QUEtiapine [SEROquel] 25 mg PO BID 30 Days #60 tablet Home Medications: Home Meds Blood Sugar Diagnostic [Test Strips] 1 each TIDAC #1 box 11/22/17 [Rx] Insulin Aspart [Novolog] See Protocol SQ TIDAC #1 box 11/22/17 [Rx] Insulin Glargine,Hum.Rec.Anlog [Lantus Solostar] 10 units SQ QAM #1 box [Rx] Pantoprazole Sodium [Protonix] 40 mg PO DAILY 30 Days #30 tablet. 11/22/17 [Rx ] Jose Needle, Diabetic [Bd Ultra-Fine Pen Needle] 1 each TIDAC #1 box 11/22/17 [Rx] QUEtiapine [SEROquel] 25 mg PO BID 30 Days #60 tablet 11/22/17 [Rx] Patient Handouts: Esophagogastroduodenoscopy, Insulin Aspart injection, Panic Attacks, [id number], Quetiapine tablets, Dehydration, Adult, [id number], Pantoprazole tablets, Insulin Glargine injection Referrals: [facility] [Outside] Syed Mosley MD [Resident] - 11/27/17 2:30 pm Daniel Renee MD [Physician] - 12/04/17 10:45 am (For EGD) - Patient Data Vitals - Most Recent: Last Vital Signs Temp 36.8 C 11/22/17 12:00 Pulse 78 11/22/17 12:00 Resp 16 11/22/17 12:00 BP 147/74 H 11/22/17 12:00 Pulse Ox 94 L 11/22/17 12:00 Weight - Most Recent: 56 kg I&O - Last 24 hours: Intake & Output 11/22/17 11/22/17 11/22/17 06:59 14:59 22:59 Intake Total 1694 Output Total 500 Balance 1194 Lab Results - Last 24 hrs: Laboratory Results - last 24 hr 11/21/17 11/21/17 11/21/17 Range/Units 11:55 14:06 16:24 POC Glucose 162 H 185 H 227 H (60-110) mg/dL 11/22/17 Range/Units 07:26 POC Glucose 249 H (60-110) mg/dL Med Orders - Current: Current Medications Acetaminophen (Tylenol) 325 mg PO Q4H PRN PRN Reason: Pain Last Admin: 11/20/17 05:25 Dose: 325 mg Folic Acid (Folic Acid) 1 mg SUBCUT DAILY [facility] Last Admin: 11/22/17 08:44 Dose: 1 mg Insulin Aspart (Novolog) 0 unit SUBCUT TIDAC [facility] PRN Reason: Protocol Last Admin: 11/22/17 12:55 Dose: 3 unit Nicotine (Habitrol) 7 mg TRDERM DAILY [facility] Last Admin: 11/22/17 12:54 Dose: Not Given Ondansetron HCl (Zofran) 4 mg IVPUSH Q4H PRN PRN Reason: Nausea Last Admin: 11/20/17 11:39 Dose: 4 mg Pantoprazole Sodium (Protonix Iv) 40 mg IVPUSH DAILY [facility] Last Admin: 11/22/17 09:19 Dose: Not Given Promethazine HCl (Phenergan) 25 mg IM Q6H PRN PRN Reason: Nausea Quetiapine Fumarate (Seroquel) 25 mg PO BID [facility] Last Admin: 11/22/17 08:46 Dose: 25 mg Thiamine HCl (Vitamin B-1) 100 mg IV DAILY [facility] Last Admin: 11/22/17 08:41 Dose: 100 mg Discontinued Medications Acetaminophen (Tylenol) 325 mg PO DAILY [facility] Acetaminophen (Tylenol) 325 mg PO Q4H [facility] Last Admin: 11/18/17 23:06 Dose: Not Given Haloperidol Lactate (Haldol) 10 mg IM ONETIME ONE Stop: 11/20/17 18:57 Last Admin: 11/21/17 20:08 Dose: Not Given Sodium Chloride (Normal Saline) 1,000 mls @ 999 mls/hr IV STAT ONE Stop: 11/18/17 06:54 Last Admin: 11/18/17 06:21 Dose: 999 mls/hr Sodium Chloride (Normal Saline) 1,000 mls @ 125 mls/hr IV ASDIRECTED [facility] Last Admin: 11/22/17 02:12 Dose: 125 mls/hr Insulin Human Regular (Novolin R) 10 unit IVPUSH ONETIME ONE PRN Reason: Protocol Stop: 11/18/17 07:13 Last Admin: 11/18/17 07:41 Dose: 10 units Lorazepam (Ativan) 1 mg IVPUSH ONETIME ONE Stop: 11/18/17 05:55 Last Admin: 11/18/17 06:35 Dose: Not Given Lorazepam (Ativan) 1 mg IVPUSH ONETIME ONE Stop: 11/18/17 07:23 Last Admin: 11/18/17 07:38 Dose: 1 mg Lorazepam (Ativan) 0.5 mg IVPUSH ONETIME ONE Stop: 11/18/17 10:27 Last Admin: 11/18/17 10:33 Dose: 0.5 mg Lorazepam (Ativan) 0 mg IVPUSH Q4H PRN; Protocol PRN Reason: aggitation Last Admin: 11/20/17 07:28 Dose: 1 mg Ondansetron HCl (Zofran) 8 mg IVPUSH ONETIME ONE Stop: 11/18/17 05:55 Last Admin: 11/18/17 06:27 Dose: 8 mg Pantoprazole Sodium (Protonix Iv) 40 mg IVPUSH ONETIME ONE Stop: 11/18/17 11:35 Last Admin: 11/18/17 12:52 Dose: 40 mg Pantoprazole Sodium (Protonix Iv) 40 mg IVPUSH NOW ONE Stop: 11/21/17 16:29 Last Admin: 11/21/17 17:47 Dose: 40 mg Pantoprazole Sodium (Protonix Iv) 40 mg IVPUSH DAILY [facility] Last Admin: 11/22/17 08:41 Dose: 40 mg Quetiapine Fumarate (Seroquel) 25 mg PO ONETIME ONE Stop: 11/21/17 09:01 Last Admin: 11/21/17 08:46 Dose: 25 mg Quetiapine Fumarate (Seroquel) 25 mg PO ONETIME ONE Stop: 11/20/17 18:24 Last Admin: 11/21/17 20:08 Dose: Not Given Topiramate (Topamax) 25 mg PO Q12H [facility] Last Admin: 11/21/17 17:49 Dose: Not Given *Q Meaningful Use (DIS) - VTE *Q VTE Criteria *Q: - Stroke *Q Stroke Criteria *Q: - AMI *Q AMI Criteria *Q:
== END 2017-11-22 18:35 | disposition home or self-care (01) | DRG 880 ==
LOC: MW.ED 05:53 → MW.MS 10:14 → OBSVTOIN 15:08 → MW.MS 15:44
PROVIDERS: ADMIT Internal Medicine; ATTEND Internal Medicine
DX: F99 Mental disorder, not otherwise specified (principal); F41.0 Panic disorder [episodic paroxysmal anxiety]; F41.8 Other specified anxiety disorders; R10.9 Unspecified abdominal pain; R11.2 Nausea with vomiting, unspecified; E11.65 Type 2 diabetes mellitus with hyperglycemia; E86.0 Dehydration; I10 Essential (primary) hypertension; F17.200 Nicotine dependence, unspecified, uncomplicated; Z85.43 Personal history of malignant neoplasm of ovary; Z91.040 Latex allergy status; Z88.2 Allergy status to sulfonamides
CPT/HCPCS: 36415; 71010; 71010-26; 74020; 74020-26; 80048; 80053; 80305; 80307; 81001; 82962; 84443; 85025; 96361; 96374; 96375; 96376; 99284; 99284-25; A9270-GY; C9113; G0480; J1815-GY ×2; J2060; J2405; J3411; J7040

== ENCOUNTER 2017-12-07 05:43 | Observation (INO) | payer MEDICAID ==
[2017-12-07] MEDS ORDERED: Sodium Chloride 0.9% 1,000 ML IV ONE ×2 (05:50→06:55)
--- NOTE | 2017-12-07 05:53 | EDM.PDOC ---
ED HPI GENERAL MEDICAL PROBLEM - General Stated Complaint: AMBULANCE Time Seen by Provider: 12/07/17 05:51 Source of Information: Reports: Patient - History of Present Illness INITIAL COMMENTS - FREE TEXT/NARRATIVE: HISTORY AND PHYSICAL: History of present illness: [ Patient presents with complaint of possible seizure via witnesses abdomen are, she presents via EMS Visit she went to work this morning became lightheaded sat on a chair and she does not recall what occurred other than a pharmacy manager was present when she woke up him and called EMS. Apparently coworkers at [employer] said reported seizure-like activity to the EMS crew while they were on her way to [employer] The postictal state on their arrival she arrives to the emergency room alert and oriented she is pale appearing and hypotensive in the 80s systolic No fever nausea vomiting chills sweats she appears generally weak ] Review of systems: As per history of present illness and below otherwise all systems reviewed and negative. Past medical history: As per history of present illness and as reviewed below otherwise noncontributory. Surgical history: As per history of present illness and as reviewed below otherwise noncontributory. Social history: No reported history of drug or alcohol abuse. Family history: As per history of present illness and as reviewed below otherwise noncontributory. Physical exam: HEENT: Atraumatic, normocephalic, pupils reactive, negative for conjunctival pallor or scleral icterus, mucous membranes moist, throat clear, neck supple, nontender, trachea midline. Lungs: Clear to auscultation, breath sounds equal bilaterally, chest nontender. Heart: S1S2, regular, negative for clicks, rubs, or JVD. Abdomen: Soft, nondistended, nontender. Negative for masses or hepatosplenomegaly. Negative for costovertebral tenderness. Pelvis: Stable nontender. Genitourinary: Deferred. Rectal: Deferred. Extremities: Atraumatic, negative for cords or calf pain. Neurovascular unremarkable. Neuro: Awake, alert, oriented. Cranial nerves II through XII unremarkable. Cerebellum unremarkable. Motor and sensory unremarkable throughout. Exam nonfocal. Diagnostics: [lab as below EKG Chest 1 view ] Therapeutics: [ns Bolus 1L x 2 ] signed out at shift change to follow lab and disposition , further eval and treat per Dr Vega Impression: elevated lactic acid hypotension 80 / 50 improved to 100/55 with 1 L NS] Definitive disposition and diagnosis as appropriate pending reevaluation and review of above. - Related Data Allergies Allergy/AdvReac Type Severity Reaction Status Date / Time latex Allergy Rash Verified 12/07/17 05:54 Sulfa (Sulfonamide Allergy Stomach Verified 12/07/17 05:54 Antibiotics) Upset sulfur dioxide Allergy Stomach Verified 12/07/17 05:54 Upset Home Meds: Home Meds Blood Sugar Diagnostic [Test Strips] 1 each MC TIDAC #1 box 11/22/17 [Rx] Insulin Aspart [Novolog] See Protocol SQ TIDAC #1 box 11/22/17 [Rx] Pantoprazole Sodium [Protonix] 40 mg PO DAILY 30 Days #30 tablet. 11/22/17 [Rx ] Pen Needle, Diabetic [Bd Ultra-Fine Pen Needle] 1 each MC TIDAC #1 box 11/22/17 [Rx] QUEtiapine [SEROquel] 25 mg PO BID 30 Days #60 tablet 11/22/17 [Rx] Insulin Glargine,Hum.Rec.Anlog [Lantus Solostar] 20 units SQ QAM 12/07/17 [ History] Past Medical History - Past Health History Medical/Surgical History: Denies Medical/Surgical History HEENT History: Reports: Other (See Below) Other HEENT History: has top denture Cardiovascular History: Reports: Hypertension Respiratory History: Reports: Other (See Below) Other Respiratory History: chronic daily smoker Gastrointestinal History: Reports: Helicobacter Pylori, Other (See Below) Other Gastrointestinal History: gastroparesis Genitourinary History: Reports: None 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: Musculoskeletal History: Reports: Back Pain, Chronic Neurological History: Reports: None Psychiatric History: Reports: Anxiety, Depression Endocrine/Metabolic History: Reports: Diabetes, Type II Other Endocrine/Metabolic History: Pt questions this Dx Hematologic History: Reports: Other (See Below) Other Hematologic History: States "bacterium in blood" Immunologic History: Reports: None Oncologic (Cancer) History: Reports: Ovarian Dermatologic History: Reports: Eczema - Infectious Disease History Infectious Disease History: Reports: Chicken Pox - Past Surgical History Head Surgeries/Procedures: Reports: None HEENT Surgical History: Reports: None Cardiovascular Surgical History: Reports: None GI Surgical History: Reports: None Female Surgical History: Reports: Hysterectomy, Salpingo-Oophorectomy Endocrine Surgical History: Reports: None Musculoskeletal Surgical History: Reports: Carpal Tunnel Oncologic Surgical History: Reports: Other (See Below) - History Comment History Comment: Son says she's been evaluated for these sxs in past but doesn' t recall where w/u was done (including CT of abd). No EGD ever done. The h pylori was dx'd by serologies. Social & Family History - Family History Family Medical History: Noncontributory Cardiac: Reports: Hypertension Other Cardiac Family History: Mother, Aunt Respiratory: Reports: COPD Other Respiratory Family Hisory: Uncle GI: Reports: None Neurological: Reports: Other (See Below) Other Neurological Family History: Stroke-Grandmother Endocrine/Metabolic: Reports: Diabetes, type II - Tobacco Use Smoking Status *Q: Current Every Day Smoker Years of Tobacco use: 35 Packs/Tins Daily: 0.5 Second Hand Smoke Exposure: Yes - Caffeine Use Caffeine Use: Reports: None - Alcohol Use Days Per Week of Alcohol Use: 2 Number of Drinks Per Day: 2 Total Drinks Per Week: 4 - Recreational Drug Use Recreational Drug Use: No - Living Situation & Occupation Living situation: Reports: Single Occupation: Unemployed ED ROS GENERAL - Review of Systems Review Of Systems: ROS reveals no pertinent complaints other than HPI. ED EXAM, GENERAL - Physical Exam Exam: See Below Course - Vital Signs Last Recorded V/S: Last Vital Signs Temp 96.8 F 12/07/17 05:50 Pulse 82 12/07/17 06:53 Resp 18 12/07/17 06:53 BP 98/58 L 12/07/17 06:53 Pulse Ox 99 12/07/17 06:53 - Orders/Labs/Meds Orders: Active Orders 24 hr Category Date Time Status EKG Documentation Completion [RC] STAT Care 12/07/17 05:51 Active Chest 1V Frontal [CR] Stat Exams 12/07/17 05:51 Taken COMPREHENSIVE METABOLIC PN,CMP [CHEM] Stat Lab 12/07/17 06:10 Received CULTURE BLOOD [BC] Stat Lab 12/07/17 06:00 Received CULTURE BLOOD [BC] Stat Lab 12/07/17 06:10 Received CULTURE URINE [RM] Stat Lab 12/07/17 05:51 Uncollected TROPONIN I [CHEM] Stat Lab 12/07/17 06:10 Received UA W/MICROSCOPIC [URIN] Stat Lab 12/07/17 05:51 Uncollected Blood Culture x2 Reflex Set [OM.PC] Stat Oth 12/07/17 05:51 Ordered Labs: Laboratory Tests 12/07/17 12/07/17 Range/Units 06:10 06:10 WBC 9.43 (4.0-11.0) K/uL RBC 4.45 (4.30-5.90) M/uL Hgb 13.3 (12.0-16.0) g/dL Hct 38.7 (36.0-46.0) % MCV 87.0 (80.0-98.0) fL MCH 29.9 (27.0-32.0) pg MCHC 34.4 (31.0-37.0) g/dL RDW Std Deviation 42.3 (28.0-62.0) fl RDW Coeff of [place]edi 13 (11.0-15.0) % Plt Count 276 (150-400) K/uL MPV 12.40 H (7.40-12.00) fL Neut % (Auto) 53.1 (48.0-80.0) % Lymph % (Auto) 36.6 (16.0-40.0) % [place] % (Auto) 5.2 (0.0-15.0) % Eos % (Auto) 4.5 (0.0-7.0) % Baso % (Auto) 0.6 (0.0-1.5) % Neut # (Auto) 5.0 (1.4-5.7) K/uL Lymph # (Auto) 3.5 H (0.6-2.4) K/uL [place] # (Auto) 0.5 (0.0-0.8) K/uL Eos # (Auto) 0.4 (0.0-0.7) K/uL Baso # (Auto) 0.1 (0.0-0.1) K/uL Nucleated RBC % 0.0 /100WBC Nucleated RBCs # 0 K/uL Lactate 3.6 H (0.20-2.00) mmol/L Meds: Medications Discontinued Medications Generic Name Dose Route Start Last Admin Trade Name Freq PRN Reason Stop Dose Admin Sodium Chloride 1,000 mls @ 999 mls/hr 12/07/17 05:50 12/07/17 05:53 Normal Saline IV 12/07/17 06:50 999 mls/hr STAT ONE Administration Departure - Departure Time of Disposition: 06:58 Disposition: Still A Patient 30 Condition: Poor Clinical Impression: Hypotension - Discharge Information - My Orders Last 24 Hours: My Active Orders 12/07/17 05:51 EKG Documentation Completion [RC] STAT Chest 1V Frontal [CR] Stat CULTURE URINE [RM] Stat UA W/MICROSCOPIC [URIN] Stat Blood Culture x2 Reflex Set [OM.PC] Stat 12/07/17 06:00 CULTURE BLOOD [BC] Stat 12/07/17 06:10 COMPREHENSIVE METABOLIC PN,CMP [CHEM] Stat CULTURE BLOOD [BC] Stat TROPONIN I [CHEM] Stat 12/07/17 06:55 Sodium Chloride 0.9% [Normal Saline] 1,000 ml IV STAT - Assessment/Plan Last 24 Hours: My Active Orders 12/07/17 05:51 EKG Documentation Completion [RC] STAT Chest 1V Frontal [CR] Stat CULTURE URINE [RM] Stat UA W/MICROSCOPIC [URIN] Stat Blood Culture x2 Reflex Set [OM.PC] Stat 12/07/17 06:00 CULTURE BLOOD [BC] Stat 12/07/17 06:10 COMPREHENSIVE METABOLIC PN,CMP [CHEM] Stat CULTURE BLOOD [BC] Stat TROPONIN I [CHEM] Stat 12/07/17 06:55 Sodium Chloride 0.9% [Normal Saline] 1,000 ml IV STAT
[2017-12-07 06:59] LABS: CHLORIDE,CL 105 mmol/L (98-110); SODIUM,NA 140 mmol/L (136-146)
[2017-12-07] MEDS ORDERED: Potassium Chloride 20 MEQ Tab.ER PO ONE (07:39)
[2017-12-07] MEDS ORDERED: Ondansetron 4 MG Tab.DIS PO PRN (12:34)
[2017-12-07] MEDS ORDERED: Polyethylene Glycol 3350 Powder 17 GM Packet PO PRN (12:34)
[2017-12-07] MEDS ORDERED: Acetaminophen 325 MG Tab PO PRN (12:34)
[2017-12-07] MEDS ORDERED: Ketorolac 30 MG/ML SDV IM ONE (12:53)
[2017-12-07] MEDS ORDERED: Promethazine 25 MG/ML SDV IM ONE ×2 (12:57→14:06)
[2017-12-07] MEDS ORDERED: diphenhydrAMINE 50 MG/ML SDV IM ONE (12:57)
--- NOTE | 2017-12-07 13:08 | PCM.HP ---
H&P History of Present Illness - General Date of Service: 12/07/17 Admit Problem/Dx: Admission Diagnosis/Problem Admission Diagnosis/Problem Hypokalemia Source of Information: Patient History Limitations: Reports: No Limitations - History of Present Illness Initial Comments - Free Text/Narative: 52 year old female with history of uncontrolled dm, depression and chronic epigastric pain is admitted for syncope and hypokalemia. She was at work and felt dizzy all of a sudden then passed out. She is unsure how long she was out for. She remembers waking up in the ambulance. She states she feels much better now but complains of headache. She did not have breakfast this morning. She has a history of nonadherence but states she has been taking her medications as directed. She denies fever, chills, sob, chest pain, vision change, nausea, vomiting, diarrhea. - Related Data Allergies/Adverse Reactions: Allergies Allergy/AdvReac Type Severity Reaction Status Date / Time latex Allergy Rash Verified 12/07/17 05:54 Sulfa (Sulfonamide Allergy Stomach Verified 12/07/17 05:54 Antibiotics) Upset sulfur dioxide Allergy Stomach Verified 12/07/17 05:54 Upset Home Medications: Home Meds Blood Sugar Diagnostic [Test Strips] 1 each TIDAC #1 box 11/22/17 [Rx] Insulin Aspart [Novolog] See Protocol SQ TIDAC #1 box 11/22/17 [Rx] Pantoprazole Sodium [Protonix] 40 mg PO DAILY 30 Days #30 tablet. 11/22/17 [Rx ] Pen Needle, Diabetic [Bd Ultra-Fine Pen Needle] 1 each TIDAC #1 box 11/22/17 [Rx] QUEtiapine [SEROquel] 25 mg PO BID 30 Days #60 tablet 11/22/17 [Rx] Insulin Glargine,Hum.Rec.Anlog [Lantus Solostar] 20 units SQ QAM 12/07/17 [ History] Past Medical History - Past Health History Medical/Surgical History: Denies Medical/Surgical History HEENT History: Reports: Other (See Below) Other HEENT History: has top denture Cardiovascular History: Reports: Hypertension Respiratory History: Reports: Other (See Below) Other Respiratory History: chronic daily smoker Gastrointestinal History: Reports: Helicobacter Pylori, Other (See Below) Other Gastrointestinal History: gastroparesis Genitourinary History: Reports: None [employer] History: Reports: Musculoskeletal History: Reports: Back Pain, Chronic Neurological History: Reports: Head Trauma, Migraines Other Neuro History: "Silent Migraines" Psychiatric History: Reports: Anxiety, Depression Endocrine/Metabolic History: Reports: Diabetes, Type II Other Endocrine/Metabolic History: Pt questions this Dx Hematologic History: Reports: Other (See Below) Other Hematologic History: States "bacterium in blood" Immunologic History: Reports: None Oncologic (Cancer) History: Reports: Ovarian Dermatologic History: Reports: Eczema - Infectious Disease History Infectious Disease History: Reports: Chicken Pox - Past Surgical History Head Surgeries/Procedures: Reports: None HEENT Surgical History: Reports: None Cardiovascular Surgical History: Reports: None GI Surgical History: Reports: None Female Surgical History: Reports: Hysterectomy, Salpingo-Oophorectomy Endocrine Surgical History: Reports: None Neurological Surgical History: Reports: None Musculoskeletal Surgical History: Reports: Carpal Tunnel Oncologic Surgical History: Reports: Other (See Below) - History Comment History Comment: Son says she's been evaluated for these sxs in past but doesn' t recall where w/u was done (including CT of abd). No EGD ever done. The h pylori was dx'd by serologies. Social & Family History - Family History Family Medical History: Noncontributory Cardiac: Reports: Hypertension Other Cardiac Family History: Mother, Aunt Respiratory: Reports: COPD Other Respiratory Family Hisory: Uncle GI: Reports: None Neurological: Reports: Other (See Below) Other Neurological Family History: Stroke-Grandmother Endocrine/Metabolic: Reports: Diabetes, type II - Tobacco Use Smoking Status *Q: Current Every Day Smoker Years of Tobacco use: 30 Packs/Tins Daily: 0.5 Used Tobacco, but Quit: No Second Hand Smoke Exposure: Yes - Caffeine Use Caffeine Use: Reports: Soda, Tea - Alcohol Use Days Per Week of Alcohol Use: 2 Number of Drinks Per Day: 2 Total Drinks Per Week: 4 - Recreational Drug Use Recreational Drug Use: No - Living Situation & Occupation Living situation: Reports: Single Occupation: Unemployed H&P Review of Systems - Review of Systems: Review Of Systems: See Below General: Reports: No Symptoms HEENT: Reports: Headaches Pulmonary: Reports: No Symptoms Cardiovascular: Reports: No Symptoms Gastrointestinal: Reports: No Symptoms Genitourinary: Reports: No Symptoms Musculoskeletal: Reports: No Symptoms Skin: Reports: No Symptoms Psychiatric: Reports: No Symptoms Neurological: Reports: No Symptoms Hematologic/Lymphatic: Reports: No Symptoms Immunologic: Reports: No Symptoms Exam - Exam Exam: See Below - Vital Signs Vital Signs: Last Vital Signs Temp 36.1 C 12/07/17 09:05 Pulse 81 12/07/17 09:05 Resp 18 12/07/17 09:05 BP 103/63 12/07/17 09:05 Pulse Ox 97 12/07/17 12:34 Weight: 59.602 kg - Exam General: Alert, Oriented, Cooperative HEENT: Conjunctiva Clear, EACs Clear, EOMI, Hearing Intact, Mucosa Moist & [place] , Nares Patent, Normal Nasal Septum, Posterior Pharynx Clear, Pupils Equal, Pupils Reactive, TMs Clear Neck: Supple, Trachea Midline Lungs: Clear to Auscultation, Normal Respiratory Effort Cardiovascular: Regular Rate, Regular Rhythm GI/Abdominal Exam: Normal Bowel Sounds, Soft, Non-Tender, No Distention Extremities: Normal Inspection, Normal Capillary Refill Skin: Warm, Dry, Intact Neurological: Cranial Nerves Intact, Reflexes Equal Bilateral Neuro Extensive - Mental Status: Alert, Oriented x3 Psychiatric: Alert, Normal Affect, Normal Mood, Labile Mood, Anxious. No: Depressed, Suicidal Ideation, Homicidal Ideation, Withdrawal Symptoms - Patient Data Result Diagrams: 12/07/17 06:10 12/07/17 06:10 *Q Meaningful Use (ADM) - VTE *Q VTE Criteria *Q: - Stroke *Q Stroke Criteria *Q: - AMI *Q AMI Criteria *Q: Problem List Initiated/Reviewed/Updated: Yes Orders Last 24hrs: Active Orders 24 hr Category Date Time Status Patient Status [ADT] Routine ADT 12/07/17 12:34 Ordered Antiembolic Devices [RC] PER UNIT ROUTINE Care 12/07/17 12:38 Ordered Blood Glucose Check, Bedside [RC] TIDMEALS Care 12/07/17 12:34 Ordered Oxygen Therapy [RC] PRN Care 12/07/17 12:34 Ordered Up ad Amie [RC] ASDIRECTED Care 12/07/17 12:34 Ordered VTE/DVT Education [RC] PER UNIT ROUTINE Care 12/07/17 12:34 Ordered Vital Signs [RC] Q4H Care 12/07/17 12:34 Ordered [place] [employer] Diet [DIET] Diet 12/07/17 Dinner Ordered BASIC METABOLIC PANEL,BMP [CHEM] AM Lab 12/08/17 05:11 Ordered BASIC METABOLIC PANEL,BMP [CHEM] AM Lab 12/09/17 05:11 Ordered BASIC METABOLIC PANEL,BMP [CHEM] AM Lab 12/10/17 05:11 Ordered BASIC METABOLIC PANEL,BMP [CHEM] AM Lab 12/11/17 05:11 Ordered BASIC METABOLIC PANEL,BMP [CHEM] AM Lab 12/12/17 05:11 Ordered CBC WITH AUTO DIFF [HEME] AM Lab 12/08/17 05:11 Ordered CBC WITH AUTO DIFF [HEME] AM Lab 12/09/17 05:11 Ordered CBC WITH AUTO DIFF [HEME] AM Lab 12/10/17 05:11 Ordered CBC WITH AUTO DIFF [HEME] AM Lab 12/11/17 05:11 Ordered CBC WITH AUTO DIFF [HEME] AM Lab 12/12/17 05:11 Ordered MAGNESIUM [CHEM] AM Lab 12/08/17 05:11 Ordered MAGNESIUM [CHEM] AM Lab 12/09/17 05:11 Ordered MAGNESIUM [CHEM] AM Lab 12/10/17 05:11 Ordered MAGNESIUM [CHEM] AM Lab 12/11/17 05:11 Ordered MAGNESIUM [CHEM] AM Lab 12/12/17 05:11 Ordered Acetaminophen [Tylenol] Med 12/07/17 12:34 Ordered 650 mg PO Q4H PRN Enoxaparin [Lovenox] Med 12/08/17 09:00 Ordered 40 mg SUBCUT DAILY Insulin Aspart [NovoLOG] Med 12/07/17 17:00 Ordered See Protocol SUBCUT TIDAC Insulin Glarg,Human.Rec.Analog [LantUS Solostar] Med 12/08/17 09:00 Ordered 20 units SUBCUT QAM Ketorolac [Toradol] Med 12/07/17 12:53 Once 60 mg IM ONETIME ONE Ondansetron [Zofran ODT] Med 12/07/17 12:34 Ordered 4 mg PO Q4H PRN Ondansetron [Zofran] Med 12/07/17 12:34 Ordered 4 mg IVPUSH Q4H PRN Pantoprazole [ProTONIX] Med 12/07/17 12:45 Ordered 40 mg PO DAILY Polyethylene Glycol 3350 [MiraLAX] Med 12/07/17 12:34 Ordered 17 gm PO DAILY PRN Promethazine [Phenergan] Med 12/07/17 12:57 Once 25 mg IM ONETIME ONE QUEtiapine [SEROquel] Med 12/07/17 21:00 Ordered 25 mg PO BID diphenhydrAMINE [Benadryl] Med 12/07/17 12:57 Once 25 mg IM ONETIME ONE Sequential Compression Device [OM.PC] Per Unit Routine Oth 12/07/17 12:35 Ordered Resuscitation Status Routine Resus Stat 12/07/17 12:34 Ordered Medication Orders Acetaminophen (Tylenol) 650 mg PO Q4H PRN PRN Reason: Pain (Mild 1-3)/fever Enoxaparin Sodium (Lovenox) 40 mg SUBCUT DAILY [facility] Insulin Aspart (Novolog) 0 unit SUBCUT TIDAC [facility] PRN Reason: Protocol Insulin Glargine (Lantus Solostar) 20 units SUBCUT QAM ANTHONY Ondansetron HCl (Zofran Odt) 4 mg PO Q4H PRN PRN Reason: nausea, able to take PO Ondansetron HCl (Zofran) 4 mg IVPUSH Q4H PRN PRN Reason: Nausea Pantoprazole Sodium (Protonix) 40 mg PO ACBREAKFAST [facility] Polyethylene Glycol (Miralax) 17 gm PO DAILY PRN PRN Reason: Constipation Quetiapine Fumarate (Seroquel) 25 mg PO BID [facility] Assessment/Plan Comment:: 52 year old female with history of uncontrolled dm, depression and chronic epigastric pain is admitted for syncope and hypokalemia. #Hypokalemia -given Potassium 80 meq in ED -will continue to monitor K & Mg -telemetry #Syncope -likely secondary to hypokalemia and/or fluctuating glucose levels -telemetry, monitor K, monitor glucose #headache -administerd migraine cocktail consisting of Toradol/Reglan/Benadryl #Chronic Epigastric Pain -resume home Protonix -Zofran PRN for vomiting -f/u EGD scheduled with Dr. Renee #depression -resume home Seroquel 50 mg qPM #uncontrolled DM -resume home lantus and start ISS high dose dvt: lovenox diet: diabetic dispo: 1-2 days
[2017-12-07] MEDS ORDERED: Ketorolac 30 MG/ML SDV IVPUSH ONE (14:01)
[2017-12-07] MEDS ORDERED: diphenhydrAMINE 50 MG/ML SDV IVPUSH ONE (14:05)
[2017-12-07] MEDS: Ondansetron 4 MG/2 ML SDV IVPUSH PRN ×2 (14:15→21:02)
[2017-12-07] MEDS ORDERED: Pantoprazole 40 MG Vial IVPUSH ONE ×2 (14:54→18:05)
[2017-12-07] MEDS: Sodium Chloride 0.9% 1,000 ML IV SCH ×2 (15:04→23:52)
[2017-12-07] MEDS: Pantoprazole 40 MG Tab.CR PO SCH (15:04)
[2017-12-07] MEDS ORDERED: Temazepam 15 MG Cap PO PRN (17:30)
[2017-12-07] MEDS ORDERED: LORazepam 2 MG/ML MDV IVPUSH ONE (18:05)
[2017-12-07] MEDS ORDERED: Alum Hydrox/Mag Hydrox/Simeth 15 ML, Lidocaine 2% 5 ML PO ONE ×2 (18:27)
[2017-12-07] MEDS: Insulin Aspart 100 Units/ML 3 ML Pen SUBCUT SCH (19:56)
[2017-12-07] MEDS ORDERED: Acetaminophen/HYDROcodone 325-5 MG Tab PO PRN (20:58)
[2017-12-07] MEDS ORDERED: QUEtiapine 25 MG Tab PO SCH (21:00)
[2017-12-07] MEDS ORDERED: LORazepam 2 MG/ML MDV IVPUSH STA (21:29)
[2017-12-07] MEDS ORDERED: Iopamidol 755 MG/ML 200 ML Multipack Bottle IVPUSH STA (23:12)
[2017-12-08 04:05] LABS: CHLORIDE,CL 104 mmol/L (98-110); SODIUM,NA 136 mmol/L (136-146)
[2017-12-08] MEDS: Ondansetron 4 MG/2 ML SDV IVPUSH PRN (04:24)
[2017-12-08] MEDS: LORazepam 2 MG/ML MDV IVPUSH PRN (04:28)
[2017-12-08] MEDS: Sodium Chloride 0.9% 1,000 ML IV SCH ×2 (08:06→21:44)
[2017-12-08] MEDS ORDERED: Magnesium Sulfate/Water 4 GM in Premix Bag 1 BAG IV ONE (08:11)
[2017-12-08] MEDS: Pantoprazole 40 MG Tab.CR PO SCH (08:12)
[2017-12-08] MEDS: Insulin Aspart 100 Units/ML 3 ML Pen SUBCUT SCH ×3 (08:43→19:58)
[2017-12-08] MEDS ORDERED: Potassium Chloride 20 MEQ Tab.ER PO ONE (08:49)
[2017-12-08] MEDS: Enoxaparin 40 MG/0.4 ML Syringe SUBCUT SCH (09:32)
[2017-12-08] MEDS: Insulin Glargine,Human Rec. Analog 100 Units/ML 3 ML Pen SUBCUT SCH (09:33)
--- NOTE | 2017-12-08 10:47 | PCM.DCSUM1 ---
Discharge Summary - Discharge Data Discharge Disposition: Home, Self-Care 01 Condition: Good - Patient Instructions Diet: Diabetic Diet Activity: Rest and Relax Today Driving: Do Not Drive Showering/Bathing: May Shower Notify Provider of: Fever, Increased Pain, Nausea and/or Vomiting Other/Special Instructions: Follo-up with Dr. Correa. Take medications as prescribed. Return to ED if worsening symptoms. - Discharge Plan Prescriptions/Med Rec: Ondansetron [Zofran ODT] 4 mg SL Q6H PRN #12 tab.dis PRN Reason: Nausea Potassium Chloride 40 meq PO DAILY #5 liquid Promethazine [Phenergan] 25 mg PO Q6H PRN #10 tablet PRN Reason: Nausea Sucralfate [Carafate] 1 gm PO Q6H #12 cup Home Medications: Home Meds Blood Sugar Diagnostic [Test Strips] 1 each TIDAC #1 box 11/22/17 [Rx] Insulin Aspart [Novolog Flexpen] See Protocol SQ TIDAC #1 box 11/22/17 [Rx] Pantoprazole Sodium [Protonix] 40 mg PO DAILY 30 Days #30 tablet. 11/22/17 [Rx ] Pen Needle, Diabetic [Bd Ultra-Fine Pen Needle] 1 each TIDAC #1 box 11/22/17 [Rx] QUEtiapine [SEROquel] 25 mg PO BID 30 Days #60 tablet 11/22/17 [Rx] Insulin Glargine,Hum.Rec.Anlog [Lantus Solostar] 20 units SQ QAM 12/07/17 [ History] Ondansetron [Zofran ODT] 4 mg SL Q6H PRN #12 tab.dis 12/08/17 [Rx] Potassium Chloride 40 meq PO DAILY #5 liquid 12/08/17 [Rx] Promethazine [Phenergan] 25 mg PO Q6H PRN #10 tablet 12/08/17 [Rx] Sucralfate [Carafate] 1 gm PO Q6H #12 cup 12/08/17 [Rx] Forms: ED Department Discharge Referrals: PCP,None [Primary Care Provider] - - Patient Data Vitals - Most Recent: Last Vital Signs Temp 99.2 F 12/08/17 08:00 Pulse 103 H 12/08/17 08:00 Resp 16 12/08/17 08:00 BP 162/91 H 12/08/17 08:00 Pulse Ox 99 12/08/17 08:00 Weight - Most Recent: 59.602 kg I&O - Last 24 hours: Intake & Output 12/07/17 12/08/17 12/08/17 22:59 06:59 14:59 Intake Total 300 400 Output Total 700 Balance 300 -300 Lab Results - Last 24 hrs: Laboratory Results - last 24 hr 12/07/17 12/07/17 12/07/17 Range/Units 17:45 19:46 21:33 WBC (4.0-11.0) K/uL RBC (4.30-5.90) M/uL Hgb (12.0-16.0) g/dL Hct (36.0-46.0) % MCV (80.0-98.0) fL MCH (27.0-32.0) pg MCHC (31.0-37.0) g/dL RDW Std Deviation (28.0-62.0) fl RDW Coeff of [place] (11.0-15.0) % Plt Count (150-400) K/uL MPV (7.40-12.00) fL Neut % (Auto) (48.0-80.0) % Lymph % (Auto) (16.0-40.0) % [place] % (Auto) (0.0-15.0) % Eos % (Auto) (0.0-7.0) % Baso % (Auto) (0.0-1.5) % Neut # (Auto) (1.4-5.7) K/uL Lymph # (Auto) (0.6-2.4) K/uL [place] # (Auto) (0.0-0.8) K/uL Eos # (Auto) (0.0-0.7) K/uL Baso # (Auto) (0.0-0.1) K/uL Nucleated RBC % /100WBC Nucleated RBCs # K/uL Lactate 2.1 H (0.20-2.00) mmol/L Sodium (136-146) mmol/L Potassium (3.5-5.1) mmol/L Chloride (98-110) mmol/L Carbon Dioxide (21-31) mmol/L BUN (6.0-23.0) mg/dL Creatinine (0.6-1.5) mg/dL Est Cr Clr Drug Dosing mL/min Estimated GFR (MDRD) ml/min Glucose (60-110) mg/dL POC Glucose 305 H 340 H (60-110) mg/dL Calcium (8.8-10.8) mg/dL Magnesium (1.5-2.3) mEq/L Urine Color Urine Appearance Urine pH (5.0-8.0) Ur Specific [place] (1.001-1.035) Urine Protein (NEGATIVE) mg/dL Urine Glucose (UA) (NEGATIVE) mg/dL Urine Ketones (NEGATIVE) mg/dL Urine Occult Blood (NEGATIVE) Urine Nitrite (NEGATIVE) Urine Bilirubin (NEGATIVE) Urine Urobilinogen (<2.0) EU/dL Ur Leukocyte Esterase (NEGATIVE) Urine RBC (0-2/HPF) Urine WBC (0-5/HPF) Ur Epithelial Cells (NONE-FEW) Urine Bacteria (NEGATIVE) 12/08/17 12/08/17 12/08/17 Range/Units 03:25 03:40 03:40 WBC 9.75 (4.0-11.0) K/uL RBC 4.17 L (4.30-5.90) M/uL Hgb 12.6 (12.0-16.0) g/dL Hct 36.1 (36.0-46.0) % MCV 86.6 (80.0-98.0) fL MCH 30.2 (27.0-32.0) pg MCHC 34.9 (31.0-37.0) g/dL RDW Std Deviation 42.5 (28.0-62.0) fl RDW Coeff of [place] 13 (11.0-15.0) % Plt Count 213 (150-400) K/uL MPV 12.30 H (7.40-12.00) fL Neut % (Auto) 91.5 H (48.0-80.0) % Lymph % (Auto) 7.1 L (16.0-40.0) % [place] % (Auto) 1.3 (0.0-15.0) % Eos % (Auto) 0.0 (0.0-7.0) % Baso % (Auto) 0.1 (0.0-1.5) % Neut # (Auto) 8.9 H (1.4-5.7) K/uL Lymph # (Auto) 0.7 (0.6-2.4) K/uL [place] # (Auto) 0.1 (0.0-0.8) K/uL Eos # (Auto) 0.0 (0.0-0.7) K/uL Baso # (Auto) 0.0 (0.0-0.1) K/uL Nucleated RBC % 0.0 /100WBC Nucleated RBCs # 0 K/uL Lactate (0.20-2.00) mmol/L Sodium 136 (136-146) mmol/L Potassium 4.0 (3.5-5.1) mmol/L Chloride 104 (98-110) mmol/L Carbon Dioxide 20 L (21-31) mmol/L BUN 18 (6.0-23.0) mg/dL Creatinine 0.9 (0.6-1.5) mg/dL Est Cr Clr Drug Dosing 70.36 mL/min Estimated GFR (MDRD) > 60.0 ml/min Glucose 329 H (60-110) mg/dL POC Glucose (60-110) mg/dL Calcium 8.9 (8.8-10.8) mg/dL Magnesium 1.3 L (1.5-2.3) mEq/L Urine Color YELLOW Urine Appearance CLEAR Urine pH 6.5 (5.0-8.0) Ur Specific [place] 1.015 (1.001-1.035) Urine Protein 30 (NEGATIVE) mg/dL Urine Glucose (UA) >=1000 (NEGATIVE) mg/dL Urine Ketones 15 H (NEGATIVE) mg/dL Urine Occult Blood SMALL H (NEGATIVE) Urine Nitrite NEGATIVE (NEGATIVE) Urine Bilirubin NEGATIVE (NEGATIVE) Urine Urobilinogen 0.2 (<2.0) EU/dL Ur Leukocyte Esterase NEGATIVE (NEGATIVE) Urine RBC 1-5 (0-2/HPF) Urine WBC 1-3 (0-5/HPF) Ur Epithelial Cells FEW (NONE-FEW) Urine Bacteria FEW (NEGATIVE) 12/08/17 12/08/17 Range/Units 03:40 06:35 WBC (4.0-11.0) K/uL RBC (4.30-5.90) M/uL Hgb (12.0-16.0) g/dL Hct (36.0-46.0) % MCV (80.0-98.0) fL MCH (27.0-32.0) pg MCHC (31.0-37.0) g/dL RDW Std Deviation (28.0-62.0) fl RDW Coeff of [place] (11.0-15.0) % Plt Count (150-400) K/uL MPV (7.40-12.00) fL Neut % (Auto) (48.0-80.0) % Lymph % (Auto) (16.0-40.0) % [place] % (Auto) (0.0-15.0) % Eos % (Auto) (0.0-7.0) % Baso % (Auto) (0.0-1.5) % Neut # (Auto) (1.4-5.7) K/uL Lymph # (Auto) (0.6-2.4) K/uL [place] # (Auto) (0.0-0.8) K/uL Eos # (Auto) (0.0-0.7) K/uL Baso # (Auto) (0.0-0.1) K/uL Nucleated RBC % /100WBC Nucleated RBCs # K/uL Lactate 1.0 (0.20-2.00) mmol/L Sodium (136-146) mmol/L Potassium (3.5-5.1) mmol/L Chloride (98-110) mmol/L Carbon Dioxide (21-31) mmol/L BUN (6.0-23.0) mg/dL Creatinine (0.6-1.5) mg/dL Est Cr Clr Drug Dosing mL/min Estimated GFR (MDRD) ml/min Glucose (60-110) mg/dL POC Glucose 282 H (60-110) mg/dL Calcium (8.8-10.8) mg/dL Magnesium (1.5-2.3) mEq/L Urine Color Urine Appearance Urine pH (5.0-8.0) Ur Specific [place] (1.001-1.035) Urine Protein (NEGATIVE) mg/dL Urine Glucose (UA) (NEGATIVE) mg/dL Urine Ketones (NEGATIVE) mg/dL Urine Occult Blood (NEGATIVE) Urine Nitrite (NEGATIVE) Urine Bilirubin (NEGATIVE) Urine Urobilinogen (<2.0) EU/dL Ur Leukocyte Esterase (NEGATIVE) Urine RBC (0-2/HPF) Urine WBC (0-5/HPF) Ur Epithelial Cells (NONE-FEW) Urine Bacteria (NEGATIVE) Med Orders - Current: Current Medications Acetaminophen (Tylenol) 650 mg PO Q4H PRN PRN Reason: Pain (Mild 1-3)/fever Hydrocodone Bitart/Acetaminophen ([place] 325-5 Mg) 1 tab PO Q4H PRN PRN Reason: Pain Enoxaparin Sodium (Lovenox) 40 mg SUBCUT DAILY [facility] Last Admin: 12/08/17 09:32 Dose: 40 mg Sodium Chloride (Normal Saline) 1,000 mls @ 125 mls/hr IV ASDIRECTED [facility] Last Admin: 12/08/17 08:06 Dose: 125 mls/hr Magnesium Sulfate 4 gm/ Premix 100 mls @ 25 mls/hr IV ONETIME ONE Stop: 12/08/17 12:10 Last Admin: 12/08/17 08:44 Dose: 25 mls/hr Insulin Aspart (Novolog) 0 unit SUBCUT TIDAC [facility] PRN Reason: Protocol Last Admin: 12/08/17 08:43 Dose: 4 units Insulin Glargine (Lantus Solostar) 20 units SUBCUT QAM [facility] Last Admin: 12/08/17 09:33 Dose: 20 units Lorazepam (Ativan) 1 mg IVPUSH Q4H PRN PRN Reason: Agitation Last Admin: 12/08/17 04:28 Dose: 1 mg Ondansetron HCl (Zofran Odt) 4 mg PO Q4H PRN PRN Reason: nausea, able to take PO Ondansetron HCl (Zofran) 4 mg IVPUSH Q4H PRN PRN Reason: Nausea Last Admin: 12/08/17 04:24 Dose: 4 mg Pantoprazole Sodium (Protonix) 40 mg PO ACBREAKFAST [facility] Last Admin: 12/08/17 08:12 Dose: Not Given Polyethylene Glycol (Miralax) 17 gm PO DAILY PRN PRN Reason: Constipation Quetiapine Fumarate (Seroquel) 50 mg PO DAILY [facility] Temazepam (Restoril) 15 mg PO BEDTIME PRN PRN Reason: Insomnia Discontinued Medications Al Hydroxide/Mg Hydroxide 15 (ml/ Lidocaine HCl 5 ml) 0 ml PO ONETIME ONE Stop: 12/07/17 18:28 Last Admin: 12/08/17 05:26 Dose: Not Given Diphenhydramine HCl (Benadryl) 25 mg IM ONETIME ONE Stop: 12/07/17 12:58 Last Admin: 12/07/17 18:58 Dose: Not Given Diphenhydramine HCl (Benadryl) 25 mg IVPUSH ONETIME ONE Stop: 12/07/17 14:06 Last Admin: 12/07/17 14:31 Dose: Not Given Sodium Chloride (Normal Saline) 1,000 mls @ 999 mls/hr IV STAT ONE Stop: 12/07/17 06:50 Last Admin: 12/07/17 05:53 Dose: 999 mls/hr Sodium Chloride (Normal Saline) 1,000 mls @ 999 mls/hr IV STAT ONE Stop: 12/07/17 07:55 Last Admin: 12/07/17 06:56 Dose: 999 mls/hr Iopamidol (Isovue Multipack-370 (76%)) 70 ml IVPUSH ONETIME STA Stop: 12/07/17 23:13 Last Admin: 12/07/17 23:13 Dose: 70 ml Ketorolac Tromethamine (Toradol) 60 mg IM ONETIME ONE Stop: 12/07/17 12:54 Last Admin: 12/07/17 18:30 Dose: Not Given Ketorolac Tromethamine (Toradol) 30 mg IVPUSH ONETIME ONE Stop: 12/07/17 14:02 Last Admin: 12/07/17 14:31 Dose: Not Given Lorazepam (Ativan) 0.5 mg IVPUSH ONETIME ONE Stop: 12/07/17 18:06 Last Admin: 12/07/17 18:25 Dose: 0.5 mg Lorazepam (Ativan) 1 mg IVPUSH STAT STA Stop: 12/07/17 21:30 Last Admin: 12/07/17 21:49 Dose: 1 mg Pantoprazole Sodium (Protonix Iv) 40 mg IVPUSH ONETIME ONE Stop: 12/07/17 14:55 Last Admin: 12/07/17 15:04 Dose: 40 mg Pantoprazole Sodium (Protonix Iv) 40 mg IVPUSH ONETIME ONE Stop: 12/07/17 18:06 Last Admin: 12/07/17 18:29 Dose: 40 mg Potassium Chloride (Klor-Con M20) 80 meq PO ONETIME ONE Stop: 12/07/17 07:40 Last Admin: 12/07/17 08:51 Dose: 80 meq Potassium Chloride (Klor-Con M20) 40 meq PO ONETIME ONE Stop: 12/08/17 08:50 Last Admin: 12/08/17 10:21 Dose: Not Given Promethazine HCl (Phenergan) 25 mg IM ONETIME ONE Stop: 12/07/17 12:58 Last Admin: 12/07/17 18:58 Dose: Not Given Promethazine HCl (Phenergan) 25 mg IM ONETIME ONE Stop: 12/07/17 14:07 Last Admin: 12/07/17 14:31 Dose: Not Given Quetiapine Fumarate (Seroquel) 25 mg PO BID ANTHONY *Q Meaningful Use (DIS) - VTE *Q VTE Criteria *Q: - Stroke *Q Stroke Criteria *Q: - AMI *Q AMI Criteria *Q:
--- NOTE | 2017-12-08 12:06 | PCM.PN ---
- General Info Date of Service: 12/08/17 Admission Dx/Problem (Free Text): Admission Diagnosis/Problem Admission Diagnosis/Problem Hypokalemia Subjective Update: Patient very anxious and disruptive overnight. Yelling at nurses and refusing any medications. Only wanting IV pain medications and "something to make me sleep". Also witnessed several times inducing vomiting and then flayling herself on the bed. Was given ativan 1mg which did help. Patient was planning on discharge with follow-up but lab reported 1 of 4 tubes growing gram + coccci in clusters. Functional Status: Denies: Tolerating Diet - Review of Systems General: Denies: Fever, Weakness, Fatigue HEENT: Denies: Headaches, Visual Changes Pulmonary: Denies: Shortness of Breath, Hemoptysis Cardiovascular: Denies: Chest Pain, Edema Gastrointestinal: Reports: Abdominal Pain, Difficulty Swallowing, Nausea, Vomiting. Denies: Diarrhea Genitourinary: Denies: Dysuria, Hematuria Musculoskeletal: Denies: Neck Pain, Leg Pain Skin: Denies: Cyanosis Neurological: Denies: Confusion, Dizziness Psychiatric: Denies: Confusion - Patient Data Vitals - Most Recent: Last Vital Signs Temp 99.2 F 12/08/17 08:00 Pulse 103 H 12/08/17 08:00 Resp 16 12/08/17 08:00 BP 162/91 H 12/08/17 08:00 Pulse Ox 99 12/08/17 08:00 Weight - Most Recent: 59.602 kg I&O - Last 24 Hours: Intake & Output 12/07/17 12/08/17 12/08/17 22:59 06:59 14:59 Intake Total 300 400 Output Total 700 Balance 300 -300 Lab Results Last 24 Hours: Laboratory Results - last 24 hr 12/07/17 12/07/17 12/07/17 Range/Units 17:45 19:46 21:33 WBC (4.0-11.0) K/uL RBC (4.30-5.90) M/uL Hgb (12.0-16.0) g/dL Hct (36.0-46.0) % MCV (80.0-98.0) fL MCH (27.0-32.0) pg MCHC (31.0-37.0) g/dL RDW Std Deviation (28.0-62.0) fl RDW Coeff of [place] (11.0-15.0) % Plt Count (150-400) K/uL MPV (7.40-12.00) fL Neut % (Auto) (48.0-80.0) % Lymph % (Auto) (16.0-40.0) % [place] % (Auto) (0.0-15.0) % Eos % (Auto) (0.0-7.0) % Baso % (Auto) (0.0-1.5) % Neut # (Auto) (1.4-5.7) K/uL Lymph # (Auto) (0.6-2.4) K/uL [place] # (Auto) (0.0-0.8) K/uL Eos # (Auto) (0.0-0.7) K/uL Baso # (Auto) (0.0-0.1) K/uL Nucleated RBC % /100WBC Nucleated RBCs # K/uL Lactate 2.1 H (0.20-2.00) mmol/L Sodium (136-146) mmol/L Potassium (3.5-5.1) mmol/L Chloride (98-110) mmol/L Carbon Dioxide (21-31) mmol/L BUN (6.0-23.0) mg/dL Creatinine (0.6-1.5) mg/dL Est Cr Clr Drug Dosing mL/min Estimated GFR (MDRD) ml/min Glucose (60-110) mg/dL POC Glucose 305 H 340 H (60-110) mg/dL Calcium (8.8-10.8) mg/dL Magnesium (1.5-2.3) mEq/L Urine Color Urine Appearance Urine pH (5.0-8.0) Ur Specific Ash (1.001-1.035) Urine Protein (NEGATIVE) mg/dL Urine Glucose (UA) (NEGATIVE) mg/dL Urine Ketones (NEGATIVE) mg/dL Urine Occult Blood (NEGATIVE) Urine Nitrite (NEGATIVE) Urine Bilirubin (NEGATIVE) Urine Urobilinogen (<2.0) EU/dL Ur Leukocyte Esterase (NEGATIVE) Urine RBC (0-2/HPF) Urine WBC (0-5/HPF) Ur Epithelial Cells (NONE-FEW) Urine Bacteria (NEGATIVE) 01/07/18 01/07/18 01/07/18 Range/Units 03:25 03:40 03:40 WBC 9.75 (4.0-11.0) K/uL RBC 4.17 L (4.30-5.90) M/uL Hgb 12.6 (12.0-16.0) g/dL Hct 36.1 (36.0-46.0) % MCV 86.6 (80.0-98.0) fL MCH 30.2 (27.0-32.0) pg MCHC 34.9 (31.0-37.0) g/dL RDW Std Deviation 42.5 (28.0-62.0) fl RDW Coeff of [place] 13 (11.0-15.0) % Plt Count 213 (150-400) K/uL MPV 12.30 H (7.40-12.00) fL Neut % (Auto) 91.5 H (48.0-80.0) % Lymph % (Auto) 7.1 L (16.0-40.0) % [place] % (Auto) 1.3 (0.0-15.0) % Eos % (Auto) 0.0 (0.0-7.0) % Baso % (Auto) 0.1 (0.0-1.5) % Neut # (Auto) 8.9 H (1.4-5.7) K/uL Lymph # (Auto) 0.7 (0.6-2.4) K/uL [place] # (Auto) 0.1 (0.0-0.8) K/uL Eos # (Auto) 0.0 (0.0-0.7) K/uL Baso # (Auto) 0.0 (0.0-0.1) K/uL Nucleated RBC % 0.0 /100WBC Nucleated RBCs # 0 K/uL Lactate (0.20-2.00) mmol/L Sodium 136 (136-146) mmol/L Potassium 4.0 (3.5-5.1) mmol/L Chloride 104 (98-110) mmol/L Carbon Dioxide 20 L (21-31) mmol/L BUN 18 (6.0-23.0) mg/dL Creatinine 0.9 (0.6-1.5) mg/dL Est Cr Clr Drug Dosing 70.36 mL/min Estimated GFR (MDRD) > 60.0 ml/min Glucose 329 H (60-110) mg/dL POC Glucose (60-110) mg/dL Calcium 8.9 (8.8-10.8) mg/dL Magnesium 1.3 L (1.5-2.3) mEq/L Urine Color YELLOW Urine Appearance CLEAR Urine pH 6.5 (5.0-8.0) Ur Specific Ash 1.015 (1.001-1.035) Urine Protein 30 (NEGATIVE) mg/dL Urine Glucose (UA) >=1000 (NEGATIVE) mg/dL Urine Ketones 15 H (NEGATIVE) mg/dL Urine Occult Blood SMALL H (NEGATIVE) Urine Nitrite NEGATIVE (NEGATIVE) Urine Bilirubin NEGATIVE (NEGATIVE) Urine Urobilinogen 0.2 (<2.0) EU/dL Ur Leukocyte Esterase NEGATIVE (NEGATIVE) Urine RBC 1-5 (0-2/HPF) Urine WBC 1-3 (0-5/HPF) Ur Epithelial Cells FEW (NONE-FEW) Urine Bacteria FEW (NEGATIVE) 12/08/17 12/08/17 12/08/17 Range/Units 03:40 06:35 11:07 WBC (4.0-11.0) K/uL RBC (4.30-5.90) M/uL Hgb (12.0-16.0) g/dL Hct (36.0-46.0) % MCV (80.0-98.0) fL MCH (27.0-32.0) pg MCHC (31.0-37.0) g/dL RDW Std Deviation (28.0-62.0) fl RDW Coeff of [place] (11.0-15.0) % Plt Count (150-400) K/uL MPV (7.40-12.00) fL Neut % (Auto) (48.0-80.0) % Lymph % (Auto) (16.0-40.0) % [place] % (Auto) (0.0-15.0) % Eos % (Auto) (0.0-7.0) % Baso % (Auto) (0.0-1.5) % Neut # (Auto) (1.4-5.7) K/uL Lymph # (Auto) (0.6-2.4) K/uL [place] # (Auto) (0.0-0.8) K/uL Eos # (Auto) (0.0-0.7) K/uL Baso # (Auto) (0.0-0.1) K/uL Nucleated RBC % /100WBC Nucleated RBCs # K/uL Lactate 1.0 (0.20-2.00) mmol/L Sodium (136-146) mmol/L Potassium (3.5-5.1) mmol/L Chloride (98-110) mmol/L Carbon Dioxide (21-31) mmol/L BUN (6.0-23.0) mg/dL Creatinine (0.6-1.5) mg/dL Est Cr Clr Drug Dosing mL/min Estimated GFR (MDRD) ml/min Glucose (60-110) mg/dL POC Glucose 282 H 242 H (60-110) mg/dL Calcium (8.8-10.8) mg/dL Magnesium (1.5-2.3) mEq/L Urine Color Urine Appearance Urine pH (5.0-8.0) Ur Specific Ash (1.001-1.035) Urine Protein (NEGATIVE) mg/dL Urine Glucose (UA) (NEGATIVE) mg/dL Urine Ketones (NEGATIVE) mg/dL Urine Occult Blood (NEGATIVE) Urine Nitrite (NEGATIVE) Urine Bilirubin (NEGATIVE) Urine Urobilinogen (<2.0) EU/dL Ur Leukocyte Esterase (NEGATIVE) Urine RBC (0-2/HPF) Urine WBC (0-5/HPF) Ur Epithelial Cells (NONE-FEW) Urine Bacteria (NEGATIVE) Med Orders - Current: Current Medications Acetaminophen (Tylenol) 650 mg PO Q4H PRN PRN Reason: Pain (Mild 1-3)/fever Hydrocodone Bitart/Acetaminophen ([place] 325-5 Mg) 1 tab PO Q4H PRN PRN Reason: Pain Enoxaparin Sodium (Lovenox) 40 mg SUBCUT DAILY [facility] Last Admin: 12/08/17 09:32 Dose: 40 mg Sodium Chloride (Normal Saline) 1,000 mls @ 125 mls/hr IV ASDIRECTED [facility] Last Admin: 12/08/17 08:06 Dose: 125 mls/hr Magnesium Sulfate 4 gm/ Premix 100 mls @ 25 mls/hr IV ONETIME ONE Stop: 12/08/17 12:10 Last Admin: 12/08/17 08:44 Dose: 25 mls/hr Insulin Aspart (Novolog) 0 unit SUBCUT TIDAC [facility] PRN Reason: Protocol Last Admin: 12/08/17 08:43 Dose: 4 units Insulin Glargine (Lantus Solostar) 20 units SUBCUT QAM [facility] Last Admin: 12/08/17 09:33 Dose: 20 units Lorazepam (Ativan) 1 mg IVPUSH Q4H PRN PRN Reason: Agitation Last Admin: 12/08/17 04:28 Dose: 1 mg Ondansetron HCl (Zofran Odt) 4 mg PO Q4H PRN PRN Reason: nausea, able to take PO Ondansetron HCl (Zofran) 4 mg IVPUSH Q4H PRN PRN Reason: Nausea Last Admin: 12/08/17 04:24 Dose: 4 mg Pantoprazole Sodium (Protonix) 40 mg PO ACBREAKFAST [facility] Last Admin: 12/08/17 08:12 Dose: Not Given Polyethylene Glycol (Miralax) 17 gm PO DAILY PRN PRN Reason: Constipation Quetiapine Fumarate (Seroquel) 50 mg PO DAILY [facility] Temazepam (Restoril) 15 mg PO BEDTIME PRN PRN Reason: Insomnia Discontinued Medications Al Hydroxide/Mg Hydroxide 15 (ml/ Lidocaine HCl 5 ml) 0 ml PO ONETIME ONE Stop: 12/07/17 18:28 Last Admin: 12/08/17 05:26 Dose: Not Given Diphenhydramine HCl (Benadryl) 25 mg IM ONETIME ONE Stop: 12/07/17 12:58 Last Admin: 12/07/17 18:58 Dose: Not Given Diphenhydramine HCl (Benadryl) 25 mg IVPUSH ONETIME ONE Stop: 12/07/17 14:06 Last Admin: 12/07/17 14:31 Dose: Not Given Sodium Chloride (Normal Saline) 1,000 mls @ 999 mls/hr IV STAT ONE Stop: 12/07/17 06:50 Last Admin: 12/07/17 05:53 Dose: 999 mls/hr Sodium Chloride (Normal Saline) 1,000 mls @ 999 mls/hr IV STAT ONE Stop: 12/07/17 07:55 Last Admin: 12/07/17 06:56 Dose: 999 mls/hr Iopamidol (Isovue Multipack-370 (76%)) 70 ml IVPUSH ONETIME STA Stop: 12/07/17 23:13 Last Admin: 12/07/17 23:13 Dose: 70 ml Ketorolac Tromethamine (Toradol) 60 mg IM ONETIME ONE Stop: 12/07/17 12:54 Last Admin: 12/07/17 18:30 Dose: Not Given Ketorolac Tromethamine (Toradol) 30 mg IVPUSH ONETIME ONE Stop: 12/07/17 14:02 Last Admin: 12/07/17 14:31 Dose: Not Given Lorazepam (Ativan) 0.5 mg IVPUSH ONETIME ONE Stop: 12/07/17 18:06 Last Admin: 12/07/17 18:25 Dose: 0.5 mg Lorazepam (Ativan) 1 mg IVPUSH STAT STA Stop: 12/07/17 21:30 Last Admin: 12/07/17 21:49 Dose: 1 mg Pantoprazole Sodium (Protonix Iv) 40 mg IVPUSH ONETIME ONE Stop: 12/07/17 14:55 Last Admin: 12/07/17 15:04 Dose: 40 mg Pantoprazole Sodium (Protonix Iv) 40 mg IVPUSH ONETIME ONE Stop: 12/07/17 18:06 Last Admin: 12/07/17 18:29 Dose: 40 mg Potassium Chloride (Klor-Con M20) 80 meq PO ONETIME ONE Stop: 12/07/17 07:40 Last Admin: 12/07/17 08:51 Dose: 80 meq Potassium Chloride (Klor-Con M20) 40 meq PO ONETIME ONE Stop: 12/08/17 08:50 Last Admin: 12/08/17 10:21 Dose: Not Given Promethazine HCl (Phenergan) 25 mg IM ONETIME ONE Stop: 12/07/17 12:58 Last Admin: 12/07/17 18:58 Dose: Not Given Promethazine HCl (Phenergan) 25 mg IM ONETIME ONE Stop: 12/07/17 14:07 Last Admin: 12/07/17 14:31 Dose: Not Given Quetiapine Fumarate (Seroquel) 25 mg PO BID ANTHONY - Exam General: Alert, Oriented, Cooperative, No Acute Distress HEENT: Pupils Equal, Pupils Reactive, EOMI, Mucous Membr. Moist/[place] Neck: Supple Lungs: Clear to Auscultation, Normal Respiratory Effort Cardiovascular: Regular Rate, Regular Rhythm GI/Abdominal Exam: Normal Bowel Sounds, Soft, Non-Tender, No Organomegaly, No Distention Back Exam: Normal Inspection Extremities: Normal Inspection, Normal Range of Motion, Non-Tender, No Pedal Edema, Normal Capillary Refill Peripheral Pulses: 2+: Radial (L), Radial (R), Posterior Tibial (L), Posterior Tibial (R), Dorsalis Pedis (L), Dorsalis Pedis (R) Skin: Warm, Dry, Intact Wound/Incisions: Healing Well Neurological: No New Focal Deficit Psy/Mental Status: Alert, Normal Affect, Normal Mood - Problem List Review Problem List Initiated/Reviewed/Updated: Yes - My Orders Last 24 Hours: My Active Orders 12/07/17 17:30 Temazepam [Restoril] 15 mg PO BEDTIME PRN 12/07/17 20:58 Acetaminophen/HYDROcodone [[place] 325-5 MG] 1 tab PO Q4H PRN 12/07/17 21:01 Abdomen Pelvis w Cont [CT] Stat 12/08/17 03:24 LORazepam [Ativan] 1 mg IVPUSH Q4H PRN 12/08/17 08:11 Magnesium Sulfate/Water [Magnesium Sulfate 4 GM in Water 100 ML] 4 gm Premix Bag 1 bag IV ONETIME 12/08/17 10:36 Ready for Discharge [RC] PER UNIT ROUTINE 12/08/17 10:57 Retort Cooler Discontinue [Cardiac Monitoring Discontinue] [RC] Click to Edit - Plan Plan:: 52 year old female admitted 12/07/16 for hypokalemia with history of uncontrolled dm, depression and chronic epigastric pain. #Hypokalemia -resolved. Currently refusing oral medication may need IV #Syncope -likely secondary to hypokalemia and/or fluctuating glucose levels -resolved #Positive gram cultures: 1 of 3 tubes of day 2 growing gram + cocci. Patient is afebrile with no leukocytosis but did have mildly elevated lactate. Most likely contamination error. Will monitor over night and place on Vancomycin #Chronic Epigastric Pain -resume home Protonix -Zofran PRN for vomiting -f/u EGD scheduled with Dr. Renee #depression -resume home Seroquel 50 mg qPM #uncontrolled DM -resume home lantus and start ISS high dose dvt: lovenox diet: diabetic dispo: 1-2 days
--- NOTE | 2017-12-08 12:06 | PCM.SN ---
- Free Text/Narrative Note: Notified by lab this am that day two of blood cultures grew gram + cocci in clusters 1 of 4 tubes. Patient has been afebrile without leukocytosis most likely contamination but did have elevated lactate on admission. Will place patient on Vanc now and keep overnight.
[2017-12-08] MEDS: QUEtiapine 25 MG Tab PO SCH (21:40)
[2017-12-09 05:48] LABS: CHLORIDE,CL 109 mmol/L (98-110); SODIUM,NA 139 mmol/L (136-146)
[2017-12-09] MEDS: Sodium Chloride 0.9% 1,000 ML IV SCH (07:33)
[2017-12-09] MEDS: Ondansetron 4 MG/2 ML SDV IVPUSH PRN (07:33)
[2017-12-09] MEDS: Pantoprazole 40 MG Tab.CR PO SCH (08:00)
--- NOTE | 2017-12-09 09:44 | CR ---
EXAM DATE: 12/07/17 PATIENT'S AGE: 52 Patient: MITCHELL MCCRAY Facility: [place], [place] Site . Site : 1965 Study: XRay Chest [id number]/[id number] 6:23:14 AM Ordering Physician: Doctor Ta Final Report: INDICATIONS: Pain. Seizure this morning. TECHNIQUE: Chest 1 view. COMPARISON: 11/18/2017. FINDINGS: No pneumothorax, pleural effusion or airspace consolidation. Cardiac and mediastinal contours are within normal limits. Upper abdomen and osseous structures show no acute abnormality. IMPRESSION: No evidence of acute cardiopulmonary disease. Dictated by David Cardozo MD @ 12/07/2017 6:44:27 AM Dictated by: David Cardozo MD @ 12/07/2017 06:44:36 (Electronic Signature) Report Signed by Proxy. [facility]
[2017-12-09] MEDS: QUEtiapine 25 MG Tab PO SCH (09:53)
[2017-12-09] MEDS: Insulin Aspart 100 Units/ML 3 ML Pen SUBCUT SCH ×2 (09:53→13:05)
[2017-12-09] MEDS: Insulin Glargine,Human Rec. Analog 100 Units/ML 3 ML Pen SUBCUT SCH (09:53)
[2017-12-09] MEDS: Enoxaparin 40 MG/0.4 ML Syringe SUBCUT SCH (09:53)
[2017-12-09] MEDS: LORazepam 2 MG/ML MDV IVPUSH PRN (09:54)
--- NOTE | 2017-12-09 11:14 | CT ---
EXAM DATE: 12/07/17 PATIENT'S AGE: 52 Patient: MITCHELL MCCRAY Facility: [place], [place] Site . Site : 1965 Study: CT Abdomen/Pelvis [id number]/6/2018 11:11:36 PM Ordering Physician: Pedro Vega Final Report: INDICATION: Abdominal pain. TECHNIQUE: CT abdomen and pelvis acquired with 70 cc Isovue 370 IV contrast. COMPARISON: September 17, 2017. FINDINGS: LOWER CHEST: Unremarkable. LIVER: Unremarkable. Normal in size and attenuation. No masses. GALLBLADDER AND BILE DUCTS: Unremarkable. No stones or inflammation. No biliary dilatation. PANCREAS: Unremarkable. No mass or inflammation. SPLEEN: Unremarkable. Normal in size. No masses. ADRENAL GLANDS: Unremarkable. No nodules. KIDNEYS: There are 2 tiny nonobstructing stones in the right kidney. There is a simple cyst in the left kidney. No hydronephrosis. GI TRACT: Unremarkable. Normal in caliber. No sign of mass or inflammation. Normal appendix. VASCULATURE: Unremarkable. LYMPH NODES: No lymphadenopathy. OMENTUM/PERITONEUM/ABDOMINAL WALL: Unremarkable. No sign of mass or infiltration. No free air or significant free fluid. PELVIS: Unremarkable. BONES: Unremarkable for age. IMPRESSION: Unremarkable CT of the abdomen and pelvis. No findings to explain abdominal pain. Dictated by Roddy Johnson MD @ 12/07/2017 11:34:25 PM Dictated by: Roddy Johnson MD @ 12/07/2017 23:34:30 (Electronic Signature) Report Signed by Proxy. [facility]
[2017-12-09 11:49] VITALS: BP 156/88
--- NOTE | 2017-12-09 12:21 | PCM.DCSUM1 ---
Discharge Summary - Hospital Course Brief History: This 52 year old female with history of uncontrolled dm, depression and chronic epigastric pain is admitted for syncope and hypokalemia. She was at work and felt dizzy all of a sudden then passed out. She is unsure how long she was out for. She remembers waking up in the ambulance. She states she feels much better now but complains of headache. She did not have breakfast this morning. She has a history of nonadherence but states she has been taking her medications as directed. She denies fever, chills, sob, chest pain, vision change, nausea, vomiting, diarrhea. In the ED WBC 9,430, lactate 3.6, Na 140, K + 2.5, glucose 340, troponin negative, UA negative. She was treated with potatssium and fluids and admitted for hypokalemia and syncope. - Discharge Data Discharge Date: 12/09/17 Discharge Disposition: Home, Self-Care 01 Condition: Good - Patient Instructions Diet: Diabetic Diet Activity: Rest and Relax Today Driving: Do Not Drive Showering/Bathing: May Shower Notify Provider of: Fever, Increased Pain, Nausea and/or Vomiting Other/Special Instructions: Follo-up with Dr. Correa. Take medications as prescribed. Return to ED if worsening symptoms. - Discharge Plan Prescriptions/Med Rec: Ondansetron [Zofran ODT] 4 mg SL Q6H PRN #12 tab.dis PRN Reason: Nausea Potassium Chloride 40 meq PO DAILY #5 liquid Promethazine [Phenergan] 25 mg PO Q6H PRN #10 tablet PRN Reason: Nausea Sucralfate [Carafate] 1 gm PO Q6H #12 cup Home Medications: Home Meds Blood Sugar Diagnostic [Test Strips] 1 each TIDAC #1 box 11/22/17 [Rx] Insulin Aspart [Novolog Flexpen] See Protocol SQ TIDAC #1 box 11/22/17 [Rx] Pantoprazole Sodium [Protonix] 40 mg PO DAILY 30 Days #30 tablet. 11/22/17 [Rx ] Pen Needle, Diabetic [Bd Ultra-Fine Pen Needle] 1 each TIDAC #1 box 11/22/17 [Rx] QUEtiapine [SEROquel] 25 mg PO BID 30 Days #60 tablet 11/22/17 [Rx] Insulin Glargine,Hum.Rec.Anlog [Lantus Solostar] 20 units SQ QAM 12/07/17 [ History] Ondansetron [Zofran ODT] 4 mg SL Q6H PRN #12 tab.dis 12/08/17 [Rx] Potassium Chloride 40 meq PO DAILY #5 liquid 12/08/17 [Rx] Promethazine [Phenergan] 25 mg PO Q6H PRN #10 tablet 12/08/17 [Rx] Sucralfate [Carafate] 1 gm PO Q6H #12 cup 12/08/17 [Rx] Patient Handouts: Potassium Salts tablets, extended-release tablets or capsules , Ondansetron tablets, Hypokalemia, Promethazine tablets, Sucralfate oral suspension Referrals: Syed Mosley MD [Resident] - 12/11/17 3:30 pm (Please call [facility] ([phone]) on Saturday to set up a follow-up appointment with Dr. Mosley within next week. Proceed with scheduled appointments with [employer] and the planned EGD.) - Discharge Summary/Plan Comment DC Time >30 min.: No Discharge Summary/Plan Comment: Discharge Diagnoses: Hypokalemia-resolved. Syncope related to dehydration and hypotension Chronic abdominal pain Nausea and vomiting DM type 2, uncontrolled Depression Alisha was admitted and treated with potassium as well as IV fluids. Potassium normalized with supplementation as well as magnesium supplementation. She was also treated for elevated lactate, which improved within 12 hours to normal with IVFs. No source of infection noted. BC 12/05 noted to be positive with gram positive + cocci in clusters, Vancomycin was stated. Today is returned with coag negative staph, likely a contatminate. Patient is requesting discharge. She becomes very anxious and agitated when told we need to wait for blood cultures to return fully. She does not want to do this. She has been refusing all medications here this morning. She was noted to be inducing vomiting on camera, which is monitoring her room. Patient will be sent home with Potassium supplementation daily, Carafate, Phenergan and Zofran ODT. She was highly encouraged to continue taking her Insulin and Seroquel. Upon reviewing chart patient Seroquel was changed to daily at bedtime due to complaints of daytime sleepiness after morning dose. She was encouraged to continue this. She also had appointment with Dr. Renee, general surgery, where she reported feeling much better after being hospitalized and declined further studies, including colonoscopy and EGD. Patient to be discharged today, continue all home medications. I will monitor 12/05 BC and if returns tomorrow not to be contaminate will call patient. patient very happen to get home. Follow up with pcp, Dr Mosley, 1 week. She is to return to ED or clinic if concerns should arise. Per nursing: Patient Uncle here to bring her home. They (patient and uncle) were noted to be fighting in the hallway. patient ambulated out of the building to be discharged, while Uncle continues to argue with nursing staff. Patient is medically stable for discharge. She does need to continue home medications including Insulin and Seroquel. She also needs to continue following with [facility] for psychiatric concerns, which maybe leading cause for abdominal pain and nausea and vomiting. - General Info Date of Service: 12/09/17 Admission Dx/Problem (Free Text: Admission Diagnosis/Problem Admission Diagnosis/Problem Hypokalemia Subjective Update: Awoken from sleep, instantly anxious and demanding discharge home. "I will feel better at home." Gags and dry heaves during this anxiety event. Denies pain, no chest pain or SOB. Functional Status: Reports: Pain Controlled, Ambulating, Urinating - Review of Systems General: Reports: No Symptoms. Denies: Fever HEENT: Reports: No Symptoms. Denies: Sore Throat Pulmonary: Reports: No Symptoms. Denies: Shortness of Breath Cardiovascular: Reports: No Symptoms. Denies: Chest Pain, Palpitations, Dyspnea on Exertion Gastrointestinal: Reports: Abdominal Pain (epigastric, remains chronic), Nausea , Vomiting Musculoskeletal: Reports: No Symptoms. Denies: Neck Pain Neurological: Reports: No Symptoms. Denies: Confusion Psychiatric: Reports: No Symptoms. Denies: Confusion - Patient Data Vitals - Most Recent: Last Vital Signs Temp 98.2 F 12/09/17 11:49 Pulse 82 12/09/17 11:49 Resp 20 12/09/17 11:49 BP 156/88 H 12/09/17 11:49 Pulse Ox 99 12/09/17 11:49 Weight - Most Recent: 59.602 kg I&O - Last 24 hours: Intake & Output 12/08/17 12/09/17 12/09/17 22:59 06:59 14:59 Intake Total 963 489 2107 Output Total 1000 750 Balance -700 -350 1200 Lab Results - Last 24 hrs: Laboratory Results - last 24 hr 12/08/17 12/09/17 12/09/17 Range/Units 16:21 04:39 04:39 WBC 6.59 (4.0-11.0) K/uL RBC 3.62 L (4.30-5.90) M/uL Hgb 10.8 L (12.0-16.0) g/dL Hct 32.0 L (36.0-46.0) % MCV 88.4 (80.0-98.0) fL MCH 29.8 (27.0-32.0) pg MCHC 33.8 (31.0-37.0) g/dL RDW Std Deviation 44.9 (28.0-62.0) fl RDW Coeff of Kennedi 14 (11.0-15.0) % Plt Count 182 (150-400) K/uL MPV 12.60 H (7.40-12.00) fL Neut % (Auto) 53.6 (48.0-80.0) % Lymph % (Auto) 37.9 (16.0-40.0) % Grainger % (Auto) 6.1 (0.0-15.0) % Eos % (Auto) 2.1 (0.0-7.0) % Baso % (Auto) 0.3 (0.0-1.5) % Neut # (Auto) 3.5 (1.4-5.7) K/uL Lymph # (Auto) 2.5 H (0.6-2.4) K/uL Grainger # (Auto) 0.4 (0.0-0.8) K/uL Eos # (Auto) 0.1 (0.0-0.7) K/uL Baso # (Auto) 0.0 (0.0-0.1) K/uL Nucleated RBC % 0.0 /100WBC Nucleated RBCs # 0 K/uL Sodium 139 (136-146) mmol/L Potassium 3.7 (3.5-5.1) mmol/L Chloride 109 (98-110) mmol/L Carbon Dioxide 24 (21-31) mmol/L BUN 18 (6.0-23.0) mg/dL Creatinine 0.8 (0.6-1.5) mg/dL Est Cr Clr Drug Dosing 79.16 mL/min Estimated GFR (MDRD) > 60.0 ml/min Glucose 217 H (60-110) mg/dL POC Glucose 209 H (60-110) mg/dL Calcium 8.0 L (8.8-10.8) mg/dL Magnesium 1.8 (1.5-2.3) mEq/L 12/09/17 Range/Units 06:25 WBC (4.0-11.0) K/uL RBC (4.30-5.90) M/uL Hgb (12.0-16.0) g/dL Hct (36.0-46.0) % MCV (80.0-98.0) fL MCH (27.0-32.0) pg MCHC (31.0-37.0) g/dL RDW Std Deviation (28.0-62.0) fl RDW Coeff of Kennedi (11.0-15.0) % Plt Count (150-400) K/uL MPV (7.40-12.00) fL Neut % (Auto) (48.0-80.0) % Lymph % (Auto) (16.0-40.0) % Grainger % (Auto) (0.0-15.0) % Eos % (Auto) (0.0-7.0) % Baso % (Auto) (0.0-1.5) % Neut # (Auto) (1.4-5.7) K/uL Lymph # (Auto) (0.6-2.4) K/uL Grainger # (Auto) (0.0-0.8) K/uL Eos # (Auto) (0.0-0.7) K/uL Baso # (Auto) (0.0-0.1) K/uL Nucleated RBC % /100WBC Nucleated RBCs # K/uL Sodium (136-146) mmol/L Potassium (3.5-5.1) mmol/L Chloride (98-110) mmol/L Carbon Dioxide (21-31) mmol/L BUN (6.0-23.0) mg/dL Creatinine (0.6-1.5) mg/dL Est Cr Clr Drug Dosing mL/min Estimated GFR (MDRD) ml/min Glucose (60-110) mg/dL POC Glucose 192 H (60-110) mg/dL Calcium (8.8-10.8) mg/dL Magnesium (1.5-2.3) mEq/L Med Orders - Current: Current Medications Acetaminophen (Tylenol) 650 mg PO Q4H PRN PRN Reason: Pain (Mild 1-3)/fever Hydrocodone Bitart/Acetaminophen ([place] 325-5 Mg) 1 tab PO Q4H PRN PRN Reason: Pain Enoxaparin Sodium (Lovenox) 40 mg SUBCUT DAILY [facility] Last Admin: 12/09/17 09:53 Dose: Not Given Vancomycin HCl 1 gm/ Sodium (Chloride) 250 mls @ 250 mls/hr IV Q12H [facility] Last Admin: 12/09/17 04:10 Dose: 250 mls/hr Insulin Aspart (Novolog) 0 unit SUBCUT TIDAC [facility] PRN Reason: Protocol Last Admin: 12/09/17 09:53 Dose: Not Given Insulin Glargine (Lantus Solostar) 20 units SUBCUT QAM [facility] Last Admin: 12/09/17 09:53 Dose: Not Given Lorazepam (Ativan) 1 mg IVPUSH Q4H PRN PRN Reason: Agitation Last Admin: 12/09/17 09:54 Dose: 1 mg Ondansetron HCl (Zofran Odt) 4 mg PO Q4H PRN PRN Reason: nausea, able to take PO Ondansetron HCl (Zofran) 4 mg IVPUSH Q4H PRN PRN Reason: Nausea Last Admin: 12/09/17 07:33 Dose: 4 mg Pantoprazole Sodium (Protonix) 40 mg PO ACBREAKFAST [facility] Last Admin: 12/09/17 08:00 Dose: Not Given Polyethylene Glycol (Miralax) 17 gm PO DAILY PRN PRN Reason: Constipation Quetiapine Fumarate (Seroquel) 50 mg PO DAILY [facility] Last Admin: 12/09/17 09:53 Dose: Not Given Temazepam (Restoril) 15 mg PO BEDTIME PRN PRN Reason: Insomnia Vancomycin HCl (Pharmacy To Dose - Vancomycin) 1 dose .XX ASDIRECTED [facility] Discontinued Medications Al Hydroxide/Mg Hydroxide 15 (ml/ Lidocaine HCl 5 ml) 0 ml PO ONETIME ONE Stop: 12/07/17 18:28 Last Admin: 12/08/17 05:26 Dose: Not Given Diphenhydramine HCl (Benadryl) 25 mg IM ONETIME ONE Stop: 12/07/17 12:58 Last Admin: 12/07/17 18:58 Dose: Not Given Diphenhydramine HCl (Benadryl) 25 mg IVPUSH ONETIME ONE Stop: 12/07/17 14:06 Last Admin: 12/07/17 14:31 Dose: Not Given Sodium Chloride (Normal Saline) 1,000 mls @ 999 mls/hr IV STAT ONE Stop: 12/07/17 06:50 Last Admin: 12/07/17 05:53 Dose: 999 mls/hr Sodium Chloride (Normal Saline) 1,000 mls @ 999 mls/hr IV STAT ONE Stop: 12/07/17 07:55 Last Admin: 12/07/17 06:56 Dose: 999 mls/hr Sodium Chloride (Normal Saline) 1,000 mls @ 125 mls/hr IV ASDIRECTED [facility] Last Admin: 12/09/17 07:33 Dose: 125 mls/hr Magnesium Sulfate 4 gm/ Premix 100 mls @ 25 mls/hr IV ONETIME ONE Stop: 12/08/17 12:10 Last Admin: 12/08/17 08:44 Dose: 25 mls/hr Iopamidol (Isovue Multipack-370 (76%)) 70 ml IVPUSH ONETIME STA Stop: 12/07/17 23:13 Last Admin: 12/07/17 23:13 Dose: 70 ml Ketorolac Tromethamine (Toradol) 60 mg IM ONETIME ONE Stop: 12/07/17 12:54 Last Admin: 12/07/17 18:30 Dose: Not Given Ketorolac Tromethamine (Toradol) 30 mg IVPUSH ONETIME ONE Stop: 12/07/17 14:02 Last Admin: 12/07/17 14:31 Dose: Not Given Lorazepam (Ativan) 0.5 mg IVPUSH ONETIME ONE Stop: 12/07/17 18:06 Last Admin: 12/07/17 18:25 Dose: 0.5 mg Lorazepam (Ativan) 1 mg IVPUSH STAT STA Stop: 12/07/17 21:30 Last Admin: 12/07/17 21:49 Dose: 1 mg Pantoprazole Sodium (Protonix Iv) 40 mg IVPUSH ONETIME ONE Stop: 12/07/17 14:55 Last Admin: 12/07/17 15:04 Dose: 40 mg Pantoprazole Sodium (Protonix Iv) 40 mg IVPUSH ONETIME ONE Stop: 12/07/17 18:06 Last Admin: 12/07/17 18:29 Dose: 40 mg Potassium Chloride (Klor-Con M20) 80 meq PO ONETIME ONE Stop: 12/07/17 07:40 Last Admin: 12/07/17 08:51 Dose: 80 meq Potassium Chloride (Klor-Con M20) 40 meq PO ONETIME ONE Stop: 12/08/17 08:50 Last Admin: 12/08/17 10:21 Dose: Not Given Promethazine HCl (Phenergan) 25 mg IM ONETIME ONE Stop: 12/07/17 12:58 Last Admin: 12/07/17 18:58 Dose: Not Given Promethazine HCl (Phenergan) 25 mg IM ONETIME ONE Stop: 12/07/17 14:07 Last Admin: 12/07/17 14:31 Dose: Not Given Quetiapine Fumarate (Seroquel) 25 mg PO BID [facility] - Exam General: Reports: Alert, Cooperative Neck: Reports: Supple Cardiovascular: Reports: Regular Rate, Regular Rhythm GI/Abdominal Exam: Normal Bowel Sounds, Soft, Non-Tender (no tenderness to palpation), No Organomegaly, No Distention, No Abnormal Bruit, No Mass, Pelvis Stable Back Exam: Reports: Normal Inspection, Full Range of Motion Extremities: Normal Inspection, Normal Range of Motion, Non-Tender, No Pedal Edema, Normal Capillary Refill Skin: Reports: Warm, Dry, Intact Neurological: Reports: No New Focal Deficit Psy/Mental Status: Reports: Anxious, Agitated *Q Meaningful Use (DIS) - VTE *Q VTE Criteria *Q: - Stroke *Q Stroke Criteria *Q: - AMI *Q AMI Criteria *Q:
== END 2017-12-09 13:20 | disposition home or self-care (01) ==
LOC: MW.ED 05:43 → MW.MS 08:15
PROVIDERS: ADMIT Family Medicine; ATTEND Family Medicine
DX: E87.6 Hypokalemia (principal); R55 Syncope and collapse; E86.0 Dehydration; I95.9 Hypotension, unspecified; G89.29 Other chronic pain; R10.13 Epigastric pain; R11.2 Nausea with vomiting, unspecified; E11.9 Type 2 diabetes mellitus without complications; F32.9 Major depressive disorder, single episode, unspecified; F41.9 Anxiety disorder, unspecified; Z79.4 Long term (current) use of insulin; Z79.899 Other long term (current) drug therapy; Z88.2 Allergy status to sulfonamides; Z91.040 Latex allergy status; F17.210 Nicotine dependence, cigarettes, uncomplicated
CPT/HCPCS: 36415; 71045; 74177; 80048; 80053; 81001; 82962; 83605; 83735; 84484; 85025; 87040; 87086; 87186; 93005; 96360; 96361; 99285; A9270; C9113; J1650; J1815; J2060; J2405; J3370; J3475; J7040; J7050; Q9967; 87077; 96365; 96366; 96372; 96375; 96376; 99284; G0378

== ENCOUNTER 2017-12-19 10:24 | Day surgery (SDC) | payer MEDICAID ==
[~2017-12-19 10:24] MED LIST: Lactated Ringers 1,000 ML IV SCH
[2017-12-19] MEDS ORDERED: fentaNYL 100 MCG/2 ML SDV ONE (10:33)
[2017-12-19] MEDS ORDERED: Lidocaine 2% 5 ML SDV ONE (10:33)
[2017-12-19] MEDS ORDERED: Propofol 200 MG/20 ML SDV ONE (10:33)
--- NOTE | 2017-12-19 10:55 | PCM.PREANE ---
Preanesthetic Assessment - Anesthesia/Transfusion/Family Hx Anesthesia History: Prior Anesthesia Without Reaction Other Type of Anesthesia Reaction Comment: states "I am hard to wake up after anesthesia" Family History of Anesthesia Reaction: No Transfusion History: No Prior Transfusion(s) Intubation History: Unknown - Review of Systems General: No Symptoms Pulmonary: No Symptoms Cardiovascular: No Symptoms Gastrointestinal: Nausea, Vomiting Neurological: No Symptoms Other: Reports: None - Physical Assessment O2 Sat by Pulse Oximetry: 97 Respiratory Rate: 18 Vital Signs: Last Vital Signs Temp 36.5 C 12/19/17 10:43 Pulse 88 12/19/17 10:43 Resp 18 12/19/17 10:43 BP 130/82 12/19/17 10:43 Pulse Ox 97 12/19/17 10:43 Height: 1.73 m Weight: 59.421 kg ASA Class: 3 Mental Status: Alert & Oriented x3 Airway Class: Mallampati = 2 Dentition: Reports: Dentures (upper) Thyro-Mental Finger Breadths: 3 Mouth Opening Finger Breadths: 3 ROM/Head Extension: Full Lungs: Clear to Auscultation, Normal Respiratory Effort Cardiovascular: Regular Rate, Regular Rhythm - Allergies Allergies/Adverse Reactions: Allergies Allergy/AdvReac Type Severity Reaction Status Date / Time latex Allergy Rash Verified 12/17/17 08:38 Sulfa (Sulfonamide Allergy Airway Verified 12/17/17 08:25 Antibiotics) Tightness sulfur dioxide Allergy Airway Verified 12/17/17 08:25 Tightness - Blood Blood Available: No - Anesthesia Plan Pre-Op Medication Ordered: None - Acknowledgements Anesthesia Type Planned: MAC Pt an Appropriate Candidate for the Planned Anesthesia: Yes Alternatives and Risks of Anesthesia Discussed w Pt/Guardian: Yes Pt/Guardian Understands and Agrees with Anesthesia Plan: Yes PreAnesthesia Questionnaire - Past Health History Medical/Surgical History: Denies Medical/Surgical History HEENT History: Reports: Other (See Below) Other HEENT History: has top denture Cardiovascular History: Reports: Other (See Below) Other Cardiovascular History: murmur as an Respiratory History: Reports: Asthma (h/o asthma), Other (See Below) Other Respiratory History: smokes 1/2 ppd Gastrointestinal History: Reports: Helicobacter Pylori, Other (See Below) Other Gastrointestinal History: epigastric pain Genitourinary History: Reports: None MEDICAL PARASITOLOGIST History: Reports: Musculoskeletal History: Reports: None Neurological History: Reports: Migraines, Other (See Below) Other Neuro History: states passed out on saturday12/09/17 and was brought to the hospital and was given potassium Psychiatric History: Reports: Anxiety, Depression, Panic Attack Endocrine/Metabolic History: Reports: Diabetes, Type II (badly controlled A1C 12 ) Hematologic History: Reports: Other (See Below) Other Hematologic History: States "bacterium in blood" Immunologic History: Reports: Other (See Below) Other Immunologic History: states was in the hospital in [place] last summer with blood infection "not sure what it was called" Oncologic (Cancer) History: Reports: Ovarian (h/o overian cancer 25 years ago) Dermatologic History: Reports: Eczema - Infectious Disease History Infectious Disease History: Reports: Chicken Pox - Past Surgical History Head Surgeries/Procedures: Reports: None (12/03 ppd) HEENT Surgical History: Reports: None Cardiovascular Surgical History: Reports: None GI Surgical History: Reports: EGD Female Surgical History: Reports: Hysterectomy, Salpingo-Oophorectomy Endocrine Surgical History: Reports: None Musculoskeletal Surgical History: Reports: Carpal Tunnel Oncologic Surgical History: Reports: Other (See Below) Other Oncologic Surgeries/Procedures: Hysterectomy, OOPhorectomy - History Comment History Comment: Son says she's been evaluated for these sxs in past but doesn' t recall where w/u was done (including CT of abd). No EGD ever done. The h pylori was dx'd by serologies. - SUBSTANCE USE Smoking Status *Q: Current Every Day Smoker Tobacco Use Within Last Twelve Months: Cigarettes Second Hand Smoke Exposure: Yes Days Per Week of Alcohol Use: 2 Number of Drinks Per Day: 2 Total Drinks Per Week: 4 Recreational Drug Use History: No - HOME MEDS Home Medications: Home Meds Insulin Aspart [Novolog Flexpen] See Protocol SQ TIDAC #1 box 11/22/17 [Rx] Pantoprazole Sodium [Protonix] 40 mg PO DAILY 30 Days #30 tablet. 11/22/17 [Rx ] Insulin Glargine,Hum.Rec.Anlog [Lantus Solostar] 20 units SQ QAM 12/07/17 [ History] QUEtiapine [SEROquel] 50 mg PO BID 12/17/17 [History] - CURRENT (IN HOUSE) MEDS Current Meds: Current Medications Lactated Ringer's (Ringers, Lactated) 1,000 mls @ 125 mls/hr IV ASDIRECTED [facility] Last Admin: 12/19/17 10:44 Dose: 125 mls/hr Discontinued Medications Fentanyl (Sublimaze) Confirm Administered Dose 100 mcg .ROUTE .STK-MED ONE Stop: 12/19/17 10:34 Lidocaine (Xylocaine-Mpf 2%) Confirm Administered Dose 5 ml .ROUTE .STK-MED ONE Stop: 12/19/17 10:34 Propofol (Diprivan 20 Ml) Confirm Administered Dose 400 mg .ROUTE .STK-MED ONE Stop: 12/19/17 10:34
--- NOTE | 2017-12-19 11:17 | PCM.OPNOTE ---
- General Post-Op/Procedure Note Date of Surgery/Procedure: 12/19/17 Operative Procedure(s): egd w bx Findings: see dict [id number] Pre Op Diagnosis: gerd Post-Op Diagnosis: Same Anesthesia Technique: Moderate Sedation Primary Surgeon: Daniel Renee Pathology: egd bx Complications: None Condition: Good
--- NOTE | 2017-12-19 11:28 | PCM.POSTAN ---
POST ANESTHESIA ASSESSMENT - MENTAL STATUS Mental Status: Alert, Oriented - RESPIRATORY Respiratory Status: Respiratory Rate WNL - CARDIOVASCULAR CV Status: Pulse Rate WNL, Blood Pressure Stable - GASTROINTESTINAL GI Status: No Symptoms - PAIN Pain Score: 0 - POST OP HYDRATION Hydration Status: Adequate & Stable - OBSERVATIONS Free Text/Narrative:: no anesthesia problems
[2017-12-19 11:41] VITALS: BP 115/69
--- NOTE | 2017-12-19 12:15 | OR ---
SURGEON: Daniel Renee MD DATE OF PROCEDURE: 12/19/2017 PREOPERATIVE DIAGNOSIS: Abdominal bloating and acid reflux. POSTOPERATIVE DIAGNOSIS: Abdominal bloating and acid reflux. PROCEDURE PERFORMED: Esophagogastroduodenoscopy with biopsy. COMPLICATIONS: None. FINDINGS: 1. The patient is easily sedated with SOLE PAINTER and Diprivan. The patient is soundly snoring. 2. Oropharynx and proximal esophagus are free of disease and distal esophagus at GE junction at 40 shows moderate amount of salmon-colored change consistent with acid reflux. Stomach rugae is normal in appearance and antrum is a little bit inflamed and duodenal bulb is with petechiae and inflammation. There is no real bleeding or ulcer observed. Once after the duodenal bulb, the rest of the duodenum is unremarkable. The scope retrieved back to the stomach. Retroflexed look at the fundus of the stomach, there was no hiatal hernia. Biopsy done at antrum, body, GE junction at 40 and sucked out the air while scope coming out. There is no bile, food particle, blood, or ulcer observed in the stomach. PROCEDURE IN DETAIL: The patient was taken to the endoscopy room, and with the SOLE PAINTER, Diprivan was administered. A well-lubricated EGD scope was gently inserted through the oropharynx, down the esophagus, passing through the gastroesophageal junction, into the stomach. The mucosa was examined upon the passage. Any etiology will be noted. Once in the stomach, we continued to advance to the distal antrum, passed through the pylorus into the second portion of the duodenum. Again, the mucosa was examined for any abnormality and etiology. The scope was then retrieved back to the stomach and then retroflexed to look at the fundus of the stomach. If a biopsy was indicated, we will biopsy the antrum, body, and gastroesophageal junction. The air will be sucked out while the scope is retrieved to reduce the patient's discomfort. The patient tolerated the procedure well. There were no intraoperative complications. Dr. Renee was present through the whole procedure. Prior to surgery, a time-out had been called, the patient identified, procedure identified and antibiotic administered. [place] / ROLF /[id number]
== END 2017-12-19 11:40 | disposition home or self-care (01) ==
LOC: MW.SDS 10:24
PROVIDERS: ATTEND Surgery
DX: K29.50 Unspecified chronic gastritis without bleeding (principal); K20.9 Esophagitis, unspecified; F32.9 Major depressive disorder, single episode, unspecified; E11.65 Type 2 diabetes mellitus with hyperglycemia; F41.9 Anxiety disorder, unspecified; Z79.4 Long term (current) use of insulin; Z88.2 Allergy status to sulfonamides; Z91.040 Latex allergy status; Z79.899 Other long term (current) drug therapy; F17.210 Nicotine dependence, cigarettes, uncomplicated
CPT/HCPCS: 43239; 82962; J3010; J7120; 00731; 88305; 88312; J2704

== ENCOUNTER 2018-04-18 20:11 | Observation (INO) | payer MEDICAID ==
[2018-04-18] MEDS ORDERED: Sodium Chloride 0.9% 2.5 ML Syringe FLUSH PRN ×2 (20:48→21:01)
[2018-04-18] MEDS ORDERED: Sodium Chloride 0.9% 10 ML Syringe FLUSH PRN ×2 (20:48→21:01)
[2018-04-18] MEDS ORDERED: Sodium Chloride 0.9% 1,000 ML IV ONE ×2 (20:49→21:01)
--- NOTE | 2018-04-18 21:01 | EDM.PDOC ---
ED HPI GENERAL MEDICAL PROBLEM - General Chief Complaint: General Stated Complaint: NOT FEELING WELL/NOT EATING Time Seen by Provider: 04/18/18 20:58 Source of Information: Reports: Patient, Family, Old Records History Limitations: Reports: No Limitations - History of Present Illness INITIAL COMMENTS - FREE TEXT/NARRATIVE: HISTORY AND PHYSICAL: []53-year-old female presenting with lethargy just not feeling well not eating History of Present Illness: []She has been sick for the last 6 days decreasing her oral intake History of uncontrolled diabetes Patient has complained of nausea has not vomited 2 days. When telling her her sugar level she says it's always over 500 She has not been taking any of her medications Review of Systems: As per history of present illness and below otherwise all systems reviewed and negative. Past medical history: As per history of present illness and as reviewed below otherwise noncontributory. Surgical history: As per history of present illness and as reviewed below otherwise noncontributory. Social history: No reported history of drug or alcohol abuse. Family history: As per history of present illness and as reviewed below otherwise noncontributory. Physical exam: Catectic looking Lethargic female answering questions when asked. Speaking in 2- 3 words. HEENT: Atraumatic, normocehpalic, pupils reactive, negative for conjunctival pallor or scleral icterus, mucous membranes dry, throat clear, neck supple, nontender, trachea midline. Lungs: Clear to auscultation, breath sounds equal bilaterally, chest non tender. shallow insp/exp effort Heart: S1S2, regular, negative for clicks, rubs, or JVD. Abdomen: Soft, nondistended, nontender. Negative for masses or hepatossplenmegaly. Negative for costovertebral tenderness. Pelvis: Stable nontender. Genitourinary: Deferred. Rectal: Deferred Extremities: Atraumatic, negative for cords or calf pain. Neurovascular unremarkable. Neuro: lethargic alert, oriented. Cranial nerves II through XII unremarkable. Cerebellum unremarkable. Motor and sensory unremarkable throughout. Exam nonfocal. Bedside glucose is over 500. Discussed possible need for central line with Dr. Vasquez who has agreed to come and see this patient. IV access was obtained through external jugular on left. Discussed this case with the hospitalist Dr. Villaseñor, who agreed to refer to observation. Diagnostics: [CBC CMP EKG UA urine drug screen bedside glucose CT abdomen with contrast] Chest x-ray Therapeutics: []IV fluids Insulin Impression: []Dehydration Hyperglycemia Plan: []Refer for observation Definitive disposition and diagnosis as appropriate pending reevaluation and review of above. Onset: Gradual Duration: Day(s): (6) Location: Reports: Abdomen, Generalized Severity: Moderate Improves with: Reports: None Worsens with: Reports: None Associated Symptoms: Reports: Malaise, Nausea/Vomiting Abd Pain Score (Numeric/FACES): 8 - Related Data Allergies Allergy/AdvReac Type Severity Reaction Status Date / Time latex Allergy Rash Verified 04/18/18 21:04 Sulfa (Sulfonamide Allergy Airway Verified 04/18/18 21:04 Antibiotics) Tightness sulfur dioxide Allergy Airway Verified 04/18/18 21:04 Tightness Home Meds: Home Meds . [No Known Home Meds] 04/18/18 [History] Past Medical History - Past Health History Medical/Surgical History: Denies Medical/Surgical History HEENT History: Reports: Other (See Below) Other HEENT History: has top denture Cardiovascular History: Reports: Hypertension Other Cardiovascular History: murmur as an infant Respiratory History: Reports: Other (See Below) Other Respiratory History: chronic daily smoker Gastrointestinal History: Reports: Helicobacter Pylori, Other (See Below) Other Gastrointestinal History: gastroparesis Genitourinary History: Reports: None [employer] History: Reports: Musculoskeletal History: Reports: Back Pain, Chronic Neurological History: Reports: Migraines, Other (See Below) Other Neuro History: "Silent Migraines" Psychiatric History: Reports: Anxiety, Depression Endocrine/Metabolic History: Reports: Diabetes, Type II Other Endocrine/Metabolic History: Pt questions this Dx Hematologic History: Reports: Other (See Below) Other Hematologic History: States "bacterium in blood" Immunologic History: Reports: None Other Immunologic History: states was in the hospital in [place] last summer with blood infection "not sure what it was called" Oncologic (Cancer) History: Reports: Ovarian Dermatologic History: Reports: Eczema - Infectious Disease History Infectious Disease History: Reports: Chicken Pox - Past Surgical History GI Surgical History: Reports: None - History Comment History Comment: Son says she's been evaluated for these sxs in past but doesn' t recall where w/u was done (including CT of abd). No EGD ever done. The h pylori was dx'd by serologies. Social & Family History - Family History Family Medical History: Noncontributory Cardiac: Reports: Hypertension Other Cardiac Family History: Mother, Aunt Respiratory: Reports: COPD Other Respiratory Family Hisory: Uncle GI: Reports: None Neurological: Reports: Other (See Below) Other Neurological Family History: Stroke-Grandmother Endocrine/Metabolic: Reports: Diabetes, type II - Caffeine Use Caffeine Use: Reports: None - Living Situation & Occupation Living situation: Reports: Single Occupation: Unemployed ED ROS GENERAL - Review of Systems Review Of Systems: ROS reveals no pertinent complaints other than HPI. ED EXAM, GENERAL - Physical Exam Exam: See Below (See dictation) EKG INTERPRETATION EKG Date: 04/18/18 Rhythm: NSR Course - Vital Signs Last Recorded V/S: Last Vital Signs Temp 36.6 C 04/18/18 21:01 Pulse 94 04/18/18 21:01 Resp 16 04/18/18 21:01 BP 148/92 H 04/18/18 21:01 Pulse Ox 100 04/18/18 21:01 - Orders/Labs/Meds Orders: Active Orders 24 hr Category Date Time Status Blood Glucose Check, Bedside [RC] ONETIME Care 04/18/18 20:51 Active EKG Documentation Completion [RC] STAT Care 04/18/18 20:48 Active Abdomen Pelvis w Cont [CT] Stat Exams 04/18/18 20:49 Ordered Chest 1V Frontal [CR] Stat Exams 04/18/18 21:32 Ordered AMYLASE [CHEM] Stat Lab 04/18/18 20:48 Ordered CBC WITH AUTO DIFF [HEME] Stat Lab 04/18/18 20:48 Ordered COMPREHENSIVE METABOLIC PN,CMP [CHEM] Stat Lab 04/18/18 20:48 Ordered CULTURE BLOOD [BC] Stat Lab 04/18/18 20:49 Ordered CULTURE BLOOD [BC] Stat Lab 04/18/18 20:49 Ordered DRUG SCREEN, URINE [URCHEM] Stat Lab 04/18/18 20:48 Ordered GLYCOSYLATED HEMOGLOBIN,HGBA1C [CHEM] Stat Lab 04/18/18 20:51 Ordered HELICOBACTER PYLORI AB IGG [CHEM] Stat Lab 04/18/18 20:48 Ordered LIPASE [CHEM] Stat Lab 04/18/18 20:48 Ordered MAGNESIUM [CHEM] Stat Lab 04/18/18 20:50 Ordered UA W/MICROSCOPIC [URIN] Stat Lab 04/18/18 20:48 Ordered Insulin Regular, Human [NovoLIN R] Med 04/19/18 21:04 Once 20 unit SUBCUT ONETIME ONE Sodium Chloride 0.9% [Normal Saline] 1,000 ml Med 04/18/18 21:01 Active IV STAT Sodium Chloride 0.9% [Saline Flush] Med 04/18/18 20:48 Active 10 ml FLUSH ASDIRECTED PRN Sodium Chloride 0.9% [Saline Flush] Med 04/18/18 21:01 Active 10 ml FLUSH ASDIRECTED PRN Sodium Chloride 0.9% [Saline Flush] Med 04/18/18 20:48 Active 2.5 ml FLUSH ASDIRECTED PRN Sodium Chloride 0.9% [Saline Flush] Med 04/18/18 21:01 Active 2.5 ml FLUSH ASDIRECTED PRN Blood Culture x2 Reflex Set [OM.PC] Stat Oth 04/18/18 20:48 Ordered Saline Lock Insert [OM.PC] Stat Oth 04/18/18 20:48 Ordered Saline Lock Insert [OM.PC] Stat Oth 04/18/18 21:01 Ordered Medication Orders Sodium Chloride (Normal Saline) 1,000 mls @ 999 mls/hr IV STAT ONE Stop: 04/18/18 22:01 Insulin Human Regular (Novolin R) 20 unit SUBCUT ONETIME ONE; Protocol Stop: 04/19/18 21:05 Sodium Chloride (Saline Flush) 10 ml FLUSH ASDIRECTED PRN PRN Reason: Keep Vein Open Sodium Chloride (Saline Flush) 2.5 ml FLUSH ASDIRECTED PRN PRN Reason: Keep Vein Open Sodium Chloride (Saline Flush) 10 ml FLUSH ASDIRECTED PRN PRN Reason: Keep Vein Open Sodium Chloride (Saline Flush) 2.5 ml FLUSH ASDIRECTED PRN PRN Reason: Keep Vein Open Labs: Laboratory Tests 04/18/18 Range/Units 21:30 ABG pH 7.434 (7.35-7.45) ABG pCO2 24 L (35-45) mmHG ABG pO2 84 (75-100) mmHG ABG HCO3 16 L (22-26) mEq/L ABG Total CO2 14.1 ABG Base Excess -6.0 L (-2.0-2.0) Meds: Medications Generic Name Dose Route Start Last Admin Trade Name Matty PRN Reason Stop Dose Admin Sodium Chloride 1,000 mls @ 999 mls/hr 04/18/18 21:01 Normal Saline IV 04/18/18 22:01 STAT ONE Insulin Human Regular 20 unit 04/19/18 21:04 Novolin R SUBCUT 04/19/18 21:05 ONETIME ONE Protocol Sodium Chloride 10 ml 04/18/18 20:48 Saline Flush FLUSH ASDIRECTED PRN Keep Vein Open Sodium Chloride 2.5 ml 04/18/18 20:48 Saline Flush FLUSH ASDIRECTED PRN Keep Vein Open Sodium Chloride 10 ml 04/18/18 21:01 Saline Flush FLUSH ASDIRECTED PRN Keep Vein Open Sodium Chloride 2.5 ml 04/18/18 21:01 Saline Flush FLUSH ASDIRECTED PRN Keep Vein Open Discontinued Medications Generic Name Dose Route Start Last Admin Trade Name Matty PRN Reason Stop Dose Admin Sodium Chloride 1,000 mls @ 999 mls/hr 04/18/18 20:49 Normal Saline IV 04/18/18 21:49 STAT ONE Insulin Human Regular Confirm 04/18/18 21:23 04/18/18 21:27 Novolin R Administered 04/18/18 21:24 20 units Dose Administration 1,000 unit .ROUTE .STK-MED ONE Departure - Departure Time of Disposition: 21:57 Disposition: Refer to Observation Condition: Fair Clinical Impression: Hyperglycemia, Uncontrolled diabetes mellitus, Dehydration - Discharge Information Instructions: Type 2 Diabetes Mellitus, Diagnosis, Adult Referrals: Jesús Dial MD [Primary Care Provider] - Forms: ED Department Discharge - My Orders Last 24 Hours: My Active Orders 04/18/18 20:48 EKG Documentation Completion [RC] STAT AMYLASE [CHEM] Stat CBC WITH AUTO DIFF [HEME] Stat COMPREHENSIVE METABOLIC PN,CMP [CHEM] Stat DRUG SCREEN, URINE [URCHEM] Stat HELICOBACTER PYLORI AB IGG [CHEM] Stat LIPASE [CHEM] Stat UA W/MICROSCOPIC [URIN] Stat Sodium Chloride 0.9% [Saline Flush] 10 ml FLUSH ASDIRECTED PRN Sodium Chloride 0.9% [Saline Flush] 2.5 ml FLUSH ASDIRECTED PRN Blood Culture x2 Reflex Set [OM.PC] Stat Saline Lock Insert [OM.PC] Stat 04/18/18 20:49 Abdomen Pelvis w Cont [CT] Stat CULTURE BLOOD [BC] Stat CULTURE BLOOD [BC] Stat 04/18/18 20:50 MAGNESIUM [CHEM] Stat 04/18/18 20:51 Blood Glucose Check, Bedside [RC] ONETIME GLYCOSYLATED HEMOGLOBIN,HGBA1C [CHEM] Stat 04/18/18 21:01 Sodium Chloride 0.9% [Normal Saline] 1,000 ml IV STAT Sodium Chloride 0.9% [Saline Flush] 10 ml FLUSH ASDIRECTED PRN Sodium Chloride 0.9% [Saline Flush] 2.5 ml FLUSH ASDIRECTED PRN Saline Lock Insert [OM.PC] Stat 04/18/18 21:32 Chest 1V Frontal [CR] Stat 04/19/18 21:04 Insulin Regular, Human [NovoLIN R] 20 unit SUBCUT ONETIME ONE - Assessment/Plan Last 24 Hours: My Active Orders 04/18/18 20:48 EKG Documentation Completion [RC] STAT AMYLASE [CHEM] Stat CBC WITH AUTO DIFF [HEME] Stat COMPREHENSIVE METABOLIC PN,CMP [CHEM] Stat DRUG SCREEN, URINE [URCHEM] Stat HELICOBACTER PYLORI AB IGG [CHEM] Stat LIPASE [CHEM] Stat UA W/MICROSCOPIC [URIN] Stat Sodium Chloride 0.9% [Saline Flush] 10 ml FLUSH ASDIRECTED PRN Sodium Chloride 0.9% [Saline Flush] 2.5 ml FLUSH ASDIRECTED PRN Blood Culture x2 Reflex Set [OM.PC] Stat Saline Lock Insert [OM.PC] Stat 04/18/18 20:49 Abdomen Pelvis w Cont [CT] Stat CULTURE BLOOD [BC] Stat CULTURE BLOOD [BC] Stat 04/18/18 20:50 MAGNESIUM [CHEM] Stat 04/18/18 20:51 Blood Glucose Check, Bedside [RC] ONETIME GLYCOSYLATED HEMOGLOBIN,HGBA1C [CHEM] Stat 04/18/18 21:01 Sodium Chloride 0.9% [Normal Saline] 1,000 ml IV STAT Sodium Chloride 0.9% [Saline Flush] 10 ml FLUSH ASDIRECTED PRN Sodium Chloride 0.9% [Saline Flush] 2.5 ml FLUSH ASDIRECTED PRN Saline Lock Insert [OM.PC] Stat 04/18/18 21:32 Chest 1V Frontal [CR] Stat 04/19/18 21:04 Insulin Regular, Human [NovoLIN R] 20 unit SUBCUT ONETIME ONE
[2018-04-18] MEDS ORDERED: Insulin Regular, Human 100 Units/ML 10 ML Vial ONE (21:23)
--- NOTE | 2018-04-18 21:57 | PCM.SN ---
- Free Text/Narrative Note: ER personnel unable to obtain venous access on this patient. Request for assistance received. i was unable to find any peripheral veins. Discussed this with the patient and she agreed to permit EJ access by me. Sterile access to left neck with 20g intravenous provided and secured with blood return demonstrated to RN.
[2018-04-18 22:25] LABS: CHLORIDE,CL 91 mmol/L (98-107); SODIUM,NA 131 mmol/L (136-145)
[2018-04-18] MEDS ORDERED: Iopamidol 755 MG/ML 200 ML Multipack Bottle IVPUSH STA (22:38)
[2018-04-18] MEDS: Insulin Regular, Human 100 Units/ML 10 ML Vial IVPUSH ONE (22:40)
[2018-04-18] MEDS: Insulin Regular, Human 100 Units/ML 10 ML Vial SUBCUT ONE (22:46)
[2018-04-18] MEDS ORDERED: Insulin Regular, Human 100 Units/ML 10 ML Vial IVPUSH ONE (23:27)
[2018-04-18] MEDS ORDERED: Insulin Regular, Human 100 Units/ML 10 ML Vial SUBCUT ONE (23:28)
[2018-04-18] MEDS ORDERED: Acetaminophen 325 MG Tab PO PRN (23:47)
[2018-04-18] MEDS ORDERED: Albuterol/Ipratropium 3.0-0.5 MG/3 ML Neb Soln NEB PRN (23:47)
[2018-04-18] MEDS ORDERED: Morphine 10 MG/ML Syringe IVPUSH PRN (23:47)
[2018-04-18] MEDS ORDERED: Ondansetron 4 MG/2 ML SDV IVPUSH PRN (23:47)
[2018-04-19] MEDS: Insulin Regular, Human 100 Units/ML 10 ML Vial IVPUSH ONE ×3 (00:10→03:38)
[2018-04-19] MEDS ORDERED: Insulin Regular, Human 100 Units/ML 10 ML Vial IVPUSH ONE (00:18)
[2018-04-19] MEDS ORDERED: Insulin Regular, Human 100 Units/ML 10 ML Vial SUBCUT STA (00:18)
[2018-04-19] MEDS ORDERED: Insulin Regular, Human 100 Units/ML 10 ML Vial SUBCUT ONE ×3 (00:19→23:28)
[2018-04-19 00:22] LABS: CHLORIDE,CL 98 mmol/L (98-107); SODIUM,NA 138 mmol/L (136-145)
[2018-04-19] MEDS: Sodium Chloride 0.9% 1,000 ML IV SCH ×2 (00:56→09:42)
[2018-04-19] MEDS: Enoxaparin 30 MG/0.3 ML Syringe SUBCUT SCH (05:21)
[2018-04-19] MEDS ORDERED: Insulin Aspart 100 Units/ML 3 ML Pen SUBCUT SCH (07:30)
[2018-04-19] MEDS ORDERED: LORazepam 2 MG/ML SDV IVPUSH ONE (11:27)
[2018-04-19] MEDS ORDERED: Dextrose 5% in Water 500 ML IV SCH (12:30)
[2018-04-19] MEDS: Lactated Ringers 1,000 ML IV SCH ×2 (15:45→23:05)
[2018-04-19] MEDS: Insulin Aspart 100 Units/ML 3 ML Pen SUBCUT SCH ×2 (16:53→22:07)
[2018-04-19] MEDS ORDERED: cefTRIAXone 1,000 MG in Sodium Chloride 0.9% 50 ML IV SCH (20:30)
[2018-04-19] MEDS ORDERED: Insulin Glargine,Human Rec. Analog 100 Units/ML 3 ML Pen SUBCUT SCH (21:00)
--- NOTE | 2018-04-19 21:06 | PCM.HP ---
H&P History of Present Illness - General Date of Service: 04/19/18 Admit Problem/Dx: Admission Diagnosis/Problem Admission Diagnosis/Problem lethargy , hyperglycemia Source of Information: Patient - History of Present Illness Initial Comments - Free Text/Narative: Patient 53 y old female presented to hospital due to lethargy Patient was not feeling well for the past 6 days. She is very poor historian , history as per my discussion with the ER attending and the patient. She did not take her insulin for long time and used to follow up with doctor Brianna in clinic but did not see him recently. In ER her blood sugar were above 1000. She vomited for 3 days and stopped vomiting few days ago, just prior to coming to hospital .She suffers from anxiety and when I examined her she was rubbing her belly. When asked if she has pain she said , no , it is anxiety and she start crying and said she feel very stressed. As per ER reports , patient complained of abdominal pain. She had ovarian cancer at age 22 and was treated. Abd Pain Score (Numeric/FACES): 0 - Related Data Allergies/Adverse Reactions: Allergies Allergy/AdvReac Type Severity Reaction Status Date / Time latex Allergy Rash Verified 04/18/18 21:04 Sulfa (Sulfonamide Allergy Airway Verified 04/18/18 21:04 Antibiotics) Tightness sulfur dioxide Allergy Airway Verified 04/18/18 21:04 Tightness Home Medications: Home Meds . 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: Musculoskeletal History: Reports: Back Pain, Chronic Neurological History: Reports: Migraines, Other (See Below) Other Neuro History: "Silent Migraines" Psychiatric History: Reports: Anxiety, Depression Endocrine/Metabolic History: Reports: Diabetes, Type II Other Endocrine/Metabolic History: Pt questions this Dx Hematologic History: Reports: Other (See Below) Other Hematologic History: States "bacterium in blood" Immunologic History: Reports: None Other Immunologic History: states was in the hospital in [place] last summer with blood infection "not sure what it was called" Oncologic (Cancer) History: Reports: Ovarian Dermatologic History: Reports: Eczema - Infectious Disease History Infectious Disease History: Reports: Chicken Pox - Past Surgical History Head Surgeries/Procedures: Reports: None GI Surgical History: Reports: None - History Comment History Comment: Son says she's been evaluated for these sxs in past but doesn' t recall where w/u was done (including CT of abd). No EGD ever done. The h pylori was dx'd by serologies. Social & Family History - Family History Family Medical History: Noncontributory Cardiac: Reports: Hypertension Other Cardiac Family History: Mother, Aunt Respiratory: Reports: COPD Other Respiratory Family Hisory: Uncle GI: Reports: None Neurological: Reports: Other (See Below) Other Neurological Family History: Stroke-Grandmother Endocrine/Metabolic: Reports: Diabetes, type II - Tobacco Use Smoking Status *Q: Current Every Day Smoker Years of Tobacco use: 30 Packs/Tins Daily: 0.5 - Caffeine Use Caffeine Use: Reports: Soda - Recreational Drug Use Recreational Drug Use: No - Living Situation & Occupation Living situation: Reports: Single Occupation: Unemployed H&P Review of Systems - Review of Systems: Review Of Systems: See Below General: Reports: Weakness, Fatigue, Weight Loss HEENT: Reports: Visual Changes Pulmonary: Reports: No Symptoms Cardiovascular: Reports: No Symptoms Gastrointestinal: Reports: Abdominal Pain, Anorexia, Nausea, Vomiting Genitourinary: Reports: No Symptoms Musculoskeletal: Reports: No Symptoms Skin: Reports: Dryness Psychiatric: Reports: Mood Lability, Anxiety, Agitation Neurological: Reports: Other (lethargy) Exam - Exam Exam: See Below - Vital Signs Vital Signs: Last Vital Signs Temp 98.6 F 04/19/18 20:00 Pulse 90 04/19/18 20:00 Resp 16 04/19/18 20:00 BP 141/84 H 04/19/18 20:00 Pulse Ox 98 04/19/18 20:00 Weight: 121 lb 4.068 oz - Exam Quality Assessment: Supplemental Oxygen General: Alert, Oriented, Lethargic HEENT: Conjunctiva Clear, EACs Clear Neck: Supple, Trachea Midline Lungs: Clear to Auscultation, Normal Respiratory Effort Cardiovascular: Regular Rate, Regular Rhythm, Normal S1, Normal S2 GI/Abdominal Exam: Normal Bowel Sounds, Soft, Tender (diffusely). No: Hernia Back Exam: Normal Inspection Extremities: Normal Inspection - Patient Data Lab Results Last 24 hrs: Laboratory Results - last 24 hr 04/18/18 04/18/18 04/18/18 Range/Units 20:57 21:30 21:55 WBC (4.0-11.0) K/uL RBC (4.30-5.90) M/uL Hgb (12.0-16.0) g/dL Hct (36.0-46.0) % MCV (80.0-98.0) fL MCH (27.0-32.0) pg MCHC (31.0-37.0) g/dL RDW Std Deviation (28.0-62.0) fl RDW Coeff of [place] (11.0-15.0) % Plt Count (150-400) K/uL MPV (7.40-12.00) fL Neut % (Auto) (48.0-80.0) % Lymph % (Auto) (16.0-40.0) % [place] % (Auto) (0.0-15.0) % Eos % (Auto) (0.0-7.0) % Baso % (Auto) (0.0-1.5) % Neut # (Auto) (1.4-5.7) K/uL Lymph # (Auto) (0.6-2.4) K/uL [place] # (Auto) (0.0-0.8) K/uL Eos # (Auto) (0.0-0.7) K/uL Baso # (Auto) (0.0-0.1) K/uL Nucleated RBC % /100WBC Nucleated RBCs # K/uL ABG pH 7.434 (7.35-7.45) ABG pCO2 24 L (35-45) mmHG ABG pO2 84 (75-100) mmHG ABG HCO3 16 L (22-26) mEq/L ABG Total CO2 14.1 ABG Base Excess -6.0 L (-2.0-2.0) Lactate (0.20-2.00) mmol/L Sodium 131 L (136-145) mmol/L Potassium 5.7 H (3.5-5.1) mmol/L Chloride 91 L (98-107) mmol/L Carbon Dioxide 21.6 (21.0-32.0) mmol/L BUN 65 H (7.0-18.0) mg/dL Creatinine 2.2 H (0.6-1.0) mg/dL Est Cr Clr Drug Dosing TNP Estimated GFR (MDRD) 23.5 ml/min Glucose 1101 H* (74-106) mg/dL POC Glucose > 500 H (60-110) mg/dL Hemoglobin A1c (4.5-6.2) % Calcium 8.8 (8.5-10.1) mg/dL Phosphorus (2.6-4.7) mg/dL Magnesium 3.5 H (1.5-2.0) mg/dL Total Bilirubin 0.7 (0.2-1.0) mg/dL AST 64 H (15-37) IU/L ALT 61 (14-63) IU/L Alkaline Phosphatase 208 H (46-116) U/L Total Protein 8.3 H (6.4-8.2) g/dL Albumin 3.9 (3.4-5.0) g/dL Globulin 4.4 H (2.0-3.5) g/dL Albumin/Globulin Ratio 0.9 L (1.3-2.8) Amylase 987 H (25-115) U/L Lipase 209 (73-393) U/L Urine Color Urine Appearance Urine pH (5.0-8.0) Ur Specific [place] (1.001-1.035) Urine Protein (NEGATIVE) mg/dL Urine Glucose (UA) (NEGATIVE) mg/dL Urine Ketones (NEGATIVE) mg/dL Urine Occult Blood (NEGATIVE) Urine Nitrite (NEGATIVE) Urine Bilirubin (NEGATIVE) Urine Urobilinogen (<2.0) EU/dL Ur Leukocyte Esterase (NEGATIVE) Urine RBC (0-2/HPF) Urine WBC (0-5/HPF) Ur Epithelial Cells (NONE-FEW) Urine Bacteria (NEGATIVE) Urine Opiates Screen (NEGATIVE) Ur Oxycodone Screen (NEGATIVE) Urine Methadone Screen (NEGATIVE) Ur Barbiturates Screen (NEGATIVE) Ur Phencyclidine Scrn (NEGATIVE) Ur Amphetamine Screen (NEGATIVE) U Methamphetamines Scrn (NEGATIVE) U Benzodiazepines Scrn (NEGATIVE) U Cocaine Metab Screen (NEGATIVE) U Marijuana (THC) Screen (NEGATIVE) H. pylori IgG Antibody (NEG) 04/18/18 04/18/18 04/18/18 Range/Units 21:55 21:55 22:42 WBC (4.0-11.0) K/uL RBC (4.30-5.90) M/uL Hgb (12.0-16.0) g/dL Hct (36.0-46.0) % MCV (80.0-98.0) fL MCH (27.0-32.0) pg MCHC (31.0-37.0) g/dL RDW Std Deviation (28.0-62.0) fl RDW Coeff of [place] (11.0-15.0) % Plt Count (150-400) K/uL MPV (7.40-12.00) fL Neut % (Auto) (48.0-80.0) % Lymph % (Auto) (16.0-40.0) % [place] % (Auto) (0.0-15.0) % Eos % (Auto) (0.0-7.0) % Baso % (Auto) (0.0-1.5) % Neut # (Auto) (1.4-5.7) K/uL Lymph # (Auto) (0.6-2.4) K/uL [place] # (Auto) (0.0-0.8) K/uL Eos # (Auto) (0.0-0.7) K/uL Baso # (Auto) (0.0-0.1) K/uL Nucleated RBC % /100WBC Nucleated RBCs # K/uL ABG pH (7.35-7.45) ABG pCO2 (35-45) mmHG ABG pO2 (75-100) mmHG ABG HCO3 (22-26) mEq/L ABG Total CO2 ABG Base Excess (-2.0-2.0) Lactate 2.4 H (0.20-2.00) mmol/L Sodium (136-145) mmol/L Potassium (3.5-5.1) mmol/L Chloride (98-107) mmol/L Carbon Dioxide (21.0-32.0) mmol/L BUN (7.0-18.0) mg/dL Creatinine (0.6-1.0) mg/dL Est Cr Clr Drug Dosing Estimated GFR (MDRD) ml/min Glucose (74-106) mg/dL POC Glucose > 500 H (60-110) mg/dL Hemoglobin A1c (4.5-6.2) % Calcium (8.5-10.1) mg/dL Phosphorus (2.6-4.7) mg/dL Magnesium (1.5-2.0) mg/dL Total Bilirubin (0.2-1.0) mg/dL AST (15-37) IU/L ALT (14-63) IU/L Alkaline Phosphatase (46-116) U/L Total Protein (6.4-8.2) g/dL Albumin (3.4-5.0) g/dL Globulin (2.0-3.5) g/dL Albumin/Globulin Ratio (1.3-2.8) Amylase (25-115) U/L Lipase (73-393) U/L Urine Color Urine Appearance Urine pH (5.0-8.0) Ur Specific [place] (1.001-1.035) Urine Protein (NEGATIVE) mg/dL Urine Glucose (UA) (NEGATIVE) mg/dL Urine Ketones (NEGATIVE) mg/dL Urine Occult Blood (NEGATIVE) Urine Nitrite (NEGATIVE) Urine Bilirubin (NEGATIVE) Urine Urobilinogen (<2.0) EU/dL Ur Leukocyte Esterase (NEGATIVE) Urine RBC (0-2/HPF) Urine WBC (0-5/HPF) Ur Epithelial Cells (NONE-FEW) Urine Bacteria (NEGATIVE) Urine Opiates Screen (NEGATIVE) Ur Oxycodone Screen (NEGATIVE) Urine Methadone Screen (NEGATIVE) Ur Barbiturates Screen (NEGATIVE) Ur Phencyclidine Scrn (NEGATIVE) Ur Amphetamine Screen (NEGATIVE) U Methamphetamines Scrn (NEGATIVE) U Benzodiazepines Scrn (NEGATIVE) U Cocaine Metab Screen (NEGATIVE) U Marijuana (THC) Screen (NEGATIVE) H. pylori IgG Antibody POSITIVE H (NEG) 04/18/18 04/18/18 04/18/18 Range/Units 23:20 23:20 23:22 WBC (4.0-11.0) K/uL RBC (4.30-5.90) M/uL Hgb (12.0-16.0) g/dL Hct (36.0-46.0) % MCV (80.0-98.0) fL MCH (27.0-32.0) pg MCHC (31.0-37.0) g/dL RDW Std Deviation (28.0-62.0) fl RDW Coeff of [place] (11.0-15.0) % Plt Count (150-400) K/uL MPV (7.40-12.00) fL Neut % (Auto) (48.0-80.0) % Lymph % (Auto) (16.0-40.0) % [place] % (Auto) (0.0-15.0) % Eos % (Auto) (0.0-7.0) % Baso % (Auto) (0.0-1.5) % Neut # (Auto) (1.4-5.7) K/uL Lymph # (Auto) (0.6-2.4) K/uL [place] # (Auto) (0.0-0.8) K/uL Eos # (Auto) (0.0-0.7) K/uL Baso # (Auto) (0.0-0.1) K/uL Nucleated RBC % /100WBC Nucleated RBCs # K/uL ABG pH (7.35-7.45) ABG pCO2 (35-45) mmHG ABG pO2 (75-100) mmHG ABG HCO3 (22-26) mEq/L ABG Total CO2 ABG Base Excess (-2.0-2.0) Lactate (0.20-2.00) mmol/L Sodium (136-145) mmol/L Potassium (3.5-5.1) mmol/L Chloride (98-107) mmol/L Carbon Dioxide (21.0-32.0) mmol/L BUN (7.0-18.0) mg/dL Creatinine (0.6-1.0) mg/dL Est Cr Clr Drug Dosing Estimated GFR (MDRD) ml/min Glucose (74-106) mg/dL POC Glucose > 500 H (60-110) mg/dL Hemoglobin A1c (4.5-6.2) % Calcium (8.5-10.1) mg/dL Phosphorus (2.6-4.7) mg/dL Magnesium (1.5-2.0) mg/dL Total Bilirubin (0.2-1.0) mg/dL AST (15-37) IU/L ALT (14-63) IU/L Alkaline Phosphatase (46-116) U/L Total Protein (6.4-8.2) g/dL Albumin (3.4-5.0) g/dL Globulin (2.0-3.5) g/dL Albumin/Globulin Ratio (1.3-2.8) Amylase (25-115) U/L Lipase (73-393) U/L Urine Color YELLOW Urine Appearance CLEAR Urine pH 5.0 (5.0-8.0) Ur Specific [place] 1.010 (1.001-1.035) Urine Protein NEGATIVE (NEGATIVE) mg/dL Urine Glucose (UA) >=1000 (NEGATIVE) mg/dL Urine Ketones 15 H (NEGATIVE) mg/dL Urine Occult Blood SMALL H (NEGATIVE) Urine Nitrite NEGATIVE (NEGATIVE) Urine Bilirubin NEGATIVE (NEGATIVE) Urine Urobilinogen 0.2 (<2.0) EU/dL Ur Leukocyte Esterase NEGATIVE (NEGATIVE) Urine RBC 1-2 (0-2/HPF) Urine WBC 0-1 (0-5/HPF) Ur Epithelial Cells FEW (NONE-FEW) Urine Bacteria FEW (NEGATIVE) Urine Opiates Screen NEGATIVE (NEGATIVE) Ur Oxycodone Screen NEGATIVE (NEGATIVE) Urine Methadone Screen NEGATIVE (NEGATIVE) Ur Barbiturates Screen NEGATIVE (NEGATIVE) Ur Phencyclidine Scrn NEGATIVE (NEGATIVE) Ur Amphetamine Screen NEGATIVE (NEGATIVE) U Methamphetamines Scrn NEGATIVE (NEGATIVE) U Benzodiazepines Scrn NEGATIVE (NEGATIVE) U Cocaine Metab Screen NEGATIVE (NEGATIVE) U Marijuana (THC) Screen NEGATIVE (NEGATIVE) H. pylori IgG Antibody (NEG) 04/18/18 04/18/18 04/18/18 Range/Units 23:27 23:27 23:27 WBC 12.67 H (4.0-11.0) K/uL RBC 5.05 (4.30-5.90) M/uL Hgb 15.5 (12.0-16.0) g/dL Hct 45.1 (36.0-46.0) % MCV 89.3 (80.0-98.0) fL MCH 30.7 (27.0-32.0) pg MCHC 34.4 (31.0-37.0) g/dL RDW Std Deviation 43.0 (28.0-62.0) fl RDW Coeff of [place] 13 (11.0-15.0) % Plt Count 273 (150-400) K/uL MPV 12.50 H (7.40-12.00) fL Neut % (Auto) 79.7 (48.0-80.0) % Lymph % (Auto) 15.5 L (16.0-40.0) % [place] % (Auto) 4.7 (0.0-15.0) % Eos % (Auto) 0.0 (0.0-7.0) % Baso % (Auto) 0.1 (0.0-1.5) % Neut # (Auto) 10.1 H (1.4-5.7) K/uL Lymph # (Auto) 2.0 (0.6-2.4) K/uL [place] # (Auto) 0.6 (0.0-0.8) K/uL Eos # (Auto) 0.0 (0.0-0.7) K/uL Baso # (Auto) 0.0 (0.0-0.1) K/uL Nucleated RBC % 0.0 /100WBC Nucleated RBCs # 0 K/uL ABG pH (7.35-7.45) ABG pCO2 (35-45) mmHG ABG pO2 (75-100) mmHG ABG HCO3 (22-26) mEq/L ABG Total CO2 ABG Base Excess (-2.0-2.0) Lactate (0.20-2.00) mmol/L Sodium 138 (136-145) mmol/L Potassium 4.5 (3.5-5.1) mmol/L Chloride 98 (98-107) mmol/L Carbon Dioxide 17.4 L (21.0-32.0) mmol/L BUN 60 H (7.0-18.0) mg/dL Creatinine 2.1 H (0.6-1.0) mg/dL Est Cr Clr Drug Dosing TNP Estimated GFR (MDRD) 24.8 ml/min Glucose 784 H* (74-106) mg/dL POC Glucose (60-110) mg/dL Hemoglobin A1c 13.1 H (4.5-6.2) % Calcium 8.4 L (8.5-10.1) mg/dL Phosphorus 6.5 H (2.6-4.7) mg/dL Magnesium 3.4 H (1.5-2.0) mg/dL Total Bilirubin (0.2-1.0) mg/dL AST (15-37) IU/L ALT (14-63) IU/L Alkaline Phosphatase (46-116) U/L Total Protein (6.4-8.2) g/dL Albumin (3.4-5.0) g/dL Globulin (2.0-3.5) g/dL Albumin/Globulin Ratio (1.3-2.8) Amylase (25-115) U/L Lipase (73-393) U/L Urine Color Urine Appearance Urine pH (5.0-8.0) Ur Specific [place] (1.001-1.035) Urine Protein (NEGATIVE) mg/dL Urine Glucose (UA) (NEGATIVE) mg/dL Urine Ketones (NEGATIVE) mg/dL Urine Occult Blood (NEGATIVE) Urine Nitrite (NEGATIVE) Urine Bilirubin (NEGATIVE) Urine Urobilinogen (<2.0) EU/dL Ur Leukocyte Esterase (NEGATIVE) Urine RBC (0-2/HPF) Urine WBC (0-5/HPF) Ur Epithelial Cells (NONE-FEW) Urine Bacteria (NEGATIVE) Urine Opiates Screen (NEGATIVE) Ur Oxycodone Screen (NEGATIVE) Urine Methadone Screen (NEGATIVE) Ur Barbiturates Screen (NEGATIVE) Ur Phencyclidine Scrn (NEGATIVE) Ur Amphetamine Screen (NEGATIVE) U Methamphetamines Scrn (NEGATIVE) U Benzodiazepines Scrn (NEGATIVE) U Cocaine Metab Screen (NEGATIVE) U Marijuana (THC) Screen (NEGATIVE) H. pylori IgG Antibody (NEG) 04/19/18 04/19/18 04/19/18 Range/Units 00:54 01:51 02:45 WBC (4.0-11.0) K/uL RBC (4.30-5.90) M/uL Hgb (12.0-16.0) g/dL Hct (36.0-46.0) % MCV (80.0-98.0) fL MCH (27.0-32.0) pg MCHC (31.0-37.0) g/dL RDW Std Deviation (28.0-62.0) fl RDW Coeff of [place] (11.0-15.0) % Plt Count (150-400) K/uL MPV (7.40-12.00) fL Neut % (Auto) (48.0-80.0) % Lymph % (Auto) (16.0-40.0) % [place] % (Auto) (0.0-15.0) % Eos % (Auto) (0.0-7.0) % Baso % (Auto) (0.0-1.5) % Neut # (Auto) (1.4-5.7) K/uL Lymph # (Auto) (0.6-2.4) K/uL [place] # (Auto) (0.0-0.8) K/uL Eos # (Auto) (0.0-0.7) K/uL Baso # (Auto) (0.0-0.1) K/uL Nucleated RBC % /100WBC Nucleated RBCs # K/uL ABG pH (7.35-7.45) ABG pCO2 (35-45) mmHG ABG pO2 (75-100) mmHG ABG HCO3 (22-26) mEq/L ABG Total CO2 ABG Base Excess (-2.0-2.0) Lactate 3.1 H (0.20-2.00) mmol/L Sodium (136-145) mmol/L Potassium (3.5-5.1) mmol/L Chloride (98-107) mmol/L Carbon Dioxide (21.0-32.0) mmol/L BUN (7.0-18.0) mg/dL Creatinine (0.6-1.0) mg/dL Est Cr Clr Drug Dosing Estimated GFR (MDRD) ml/min Glucose (74-106) mg/dL POC Glucose 409 H 372 H (60-110) mg/dL Hemoglobin A1c (4.5-6.2) % Calcium (8.5-10.1) mg/dL Phosphorus (2.6-4.7) mg/dL Magnesium (1.5-2.0) mg/dL Total Bilirubin (0.2-1.0) mg/dL AST (15-37) IU/L ALT (14-63) IU/L Alkaline Phosphatase (46-116) U/L Total Protein (6.4-8.2) g/dL Albumin (3.4-5.0) g/dL Globulin (2.0-3.5) g/dL Albumin/Globulin Ratio (1.3-2.8) Amylase (25-115) U/L Lipase (73-393) U/L Urine Color Urine Appearance Urine pH (5.0-8.0) Ur Specific [place] (1.001-1.035) Urine Protein (NEGATIVE) mg/dL Urine Glucose (UA) (NEGATIVE) mg/dL Urine Ketones (NEGATIVE) mg/dL Urine Occult Blood (NEGATIVE) Urine Nitrite (NEGATIVE) Urine Bilirubin (NEGATIVE) Urine Urobilinogen (<2.0) EU/dL Ur Leukocyte Esterase (NEGATIVE) Urine RBC (0-2/HPF) Urine WBC (0-5/HPF) Ur Epithelial Cells (NONE-FEW) Urine Bacteria (NEGATIVE) Urine Opiates Screen (NEGATIVE) Ur Oxycodone Screen (NEGATIVE) Urine Methadone Screen (NEGATIVE) Ur Barbiturates Screen (NEGATIVE) Ur Phencyclidine Scrn (NEGATIVE) Ur Amphetamine Screen (NEGATIVE) U Methamphetamines Scrn (NEGATIVE) U Benzodiazepines Scrn (NEGATIVE) U Cocaine Metab Screen (NEGATIVE) U Marijuana (THC) Screen (NEGATIVE) H. pylori IgG Antibody (NEG) 04/19/18 04/19/18 04/19/18 Range/Units 03:17 04:33 05:29 WBC (4.0-11.0) K/uL RBC (4.30-5.90) M/uL Hgb (12.0-16.0) g/dL Hct (36.0-46.0) % MCV (80.0-98.0) fL MCH (27.0-32.0) pg MCHC (31.0-37.0) g/dL RDW Std Deviation (28.0-62.0) fl RDW Coeff of [place] (11.0-15.0) % Plt Count (150-400) K/uL MPV (7.40-12.00) fL Neut % (Auto) (48.0-80.0) % Lymph % (Auto) (16.0-40.0) % [place] % (Auto) (0.0-15.0) % Eos % (Auto) (0.0-7.0) % Baso % (Auto) (0.0-1.5) % Neut # (Auto) (1.4-5.7) K/uL Lymph # (Auto) (0.6-2.4) K/uL [place] # (Auto) (0.0-0.8) K/uL Eos # (Auto) (0.0-0.7) K/uL Baso # (Auto) (0.0-0.1) K/uL Nucleated RBC % /100WBC Nucleated RBCs # K/uL ABG pH (7.35-7.45) ABG pCO2 (35-45) mmHG ABG pO2 (75-100) mmHG ABG HCO3 (22-26) mEq/L ABG Total CO2 ABG Base Excess (-2.0-2.0) Lactate (0.20-2.00) mmol/L Sodium (136-145) mmol/L Potassium (3.5-5.1) mmol/L Chloride (98-107) mmol/L Carbon Dioxide (21.0-32.0) mmol/L BUN (7.0-18.0) mg/dL Creatinine (0.6-1.0) mg/dL Est Cr Clr Drug Dosing Estimated GFR (MDRD) ml/min Glucose (74-106) mg/dL POC Glucose 181 H 97 89 (60-110) mg/dL Hemoglobin A1c (4.5-6.2) % Calcium (8.5-10.1) mg/dL Phosphorus (2.6-4.7) mg/dL Magnesium (1.5-2.0) mg/dL Total Bilirubin (0.2-1.0) mg/dL AST (15-37) IU/L ALT (14-63) IU/L Alkaline Phosphatase (46-116) U/L Total Protein (6.4-8.2) g/dL Albumin (3.4-5.0) g/dL Globulin (2.0-3.5) g/dL Albumin/Globulin Ratio (1.3-2.8) Amylase (25-115) U/L Lipase (73-393) U/L Urine Color Urine Appearance Urine pH (5.0-8.0) Ur Specific [place] (1.001-1.035) Urine Protein (NEGATIVE) mg/dL Urine Glucose (UA) (NEGATIVE) mg/dL Urine Ketones (NEGATIVE) mg/dL Urine Occult Blood (NEGATIVE) Urine Nitrite (NEGATIVE) Urine Bilirubin (NEGATIVE) Urine Urobilinogen (<2.0) EU/dL Ur Leukocyte Esterase (NEGATIVE) Urine RBC (0-2/HPF) Urine WBC (0-5/HPF) Ur Epithelial Cells (NONE-FEW) Urine Bacteria (NEGATIVE) Urine Opiates Screen (NEGATIVE) Ur Oxycodone Screen (NEGATIVE) Urine Methadone Screen (NEGATIVE) Ur Barbiturates Screen (NEGATIVE) Ur Phencyclidine Scrn (NEGATIVE) Ur Amphetamine Screen (NEGATIVE) U Methamphetamines Scrn (NEGATIVE) U Benzodiazepines Scrn (NEGATIVE) U Cocaine Metab Screen (NEGATIVE) U Marijuana (THC) Screen (NEGATIVE) H. pylori IgG Antibody (NEG) 04/19/18 04/19/18 04/19/18 Range/Units 06:32 06:32 06:32 WBC 13.15 H (4.0-11.0) K/uL RBC 4.91 (4.30-5.90) M/uL Hgb 14.6 (12.0-16.0) g/dL Hct 42.4 (36.0-46.0) % MCV 86.4 (80.0-98.0) fL MCH 29.7 (27.0-32.0) pg MCHC 34.4 (31.0-37.0) g/dL RDW Std Deviation 41.2 (28.0-62.0) fl RDW Coeff of [place] 13 (11.0-15.0) % Plt Count 283 (150-400) K/uL MPV 12.10 H (7.40-12.00) fL Neut % (Auto) 70.6 (48.0-80.0) % Lymph % (Auto) 19.9 (16.0-40.0) % [place] % (Auto) 8.9 (0.0-15.0) % Eos % (Auto) 0.5 (0.0-7.0) % Baso % (Auto) 0.1 (0.0-1.5) % Neut # (Auto) 9.3 H (1.4-5.7) K/uL Lymph # (Auto) 2.6 H (0.6-2.4) K/uL [place] # (Auto) 1.2 H (0.0-0.8) K/uL Eos # (Auto) 0.1 (0.0-0.7) K/uL Baso # (Auto) 0.0 (0.0-0.1) K/uL Nucleated RBC % 0.0 /100WBC Nucleated RBCs # 0 K/uL ABG pH (7.35-7.45) ABG pCO2 (35-45) mmHG ABG pO2 (75-100) mmHG ABG HCO3 (22-26) mEq/L ABG Total CO2 ABG Base Excess (-2.0-2.0) Lactate (0.20-2.00) mmol/L Sodium 148 H (136-145) mmol/L Potassium 4.3 (3.5-5.1) mmol/L Chloride 110 H (98-107) mmol/L Carbon Dioxide 27.4 (21.0-32.0) mmol/L BUN 44 H (7.0-18.0) mg/dL Creatinine 1.4 H (0.6-1.0) mg/dL Est Cr Clr Drug Dosing 41.28 Estimated GFR (MDRD) 39.6 ml/min Glucose 146 H (74-106) mg/dL POC Glucose (60-110) mg/dL Hemoglobin A1c (4.5-6.2) % Calcium 8.4 L (8.5-10.1) mg/dL Phosphorus 5.2 H (2.6-4.7) mg/dL Magnesium 2.9 H (1.5-2.0) mg/dL Total Bilirubin (0.2-1.0) mg/dL AST (15-37) IU/L ALT (14-63) IU/L Alkaline Phosphatase (46-116) U/L Total Protein (6.4-8.2) g/dL Albumin (3.4-5.0) g/dL Globulin (2.0-3.5) g/dL Albumin/Globulin Ratio (1.3-2.8) Amylase (25-115) U/L Lipase (73-393) U/L Urine Color Urine Appearance Urine pH (5.0-8.0) Ur Specific [place] (1.001-1.035) Urine Protein (NEGATIVE) mg/dL Urine Glucose (UA) (NEGATIVE) mg/dL Urine Ketones (NEGATIVE) mg/dL Urine Occult Blood (NEGATIVE) Urine Nitrite (NEGATIVE) Urine Bilirubin (NEGATIVE) Urine Urobilinogen (<2.0) EU/dL Ur Leukocyte Esterase (NEGATIVE) Urine RBC (0-2/HPF) Urine WBC (0-5/HPF) Ur Epithelial Cells (NONE-FEW) Urine Bacteria (NEGATIVE) Urine Opiates Screen (NEGATIVE) Ur Oxycodone Screen (NEGATIVE) Urine Methadone Screen (NEGATIVE) Ur Barbiturates Screen (NEGATIVE) Ur Phencyclidine Scrn (NEGATIVE) Ur Amphetamine Screen (NEGATIVE) U Methamphetamines Scrn (NEGATIVE) U Benzodiazepines Scrn (NEGATIVE) U Cocaine Metab Screen (NEGATIVE) U Marijuana (THC) Screen (NEGATIVE) H. pylori IgG Antibody (NEG) 04/19/18 04/19/18 04/19/18 Range/Units 06:54 10:03 10:03 WBC (4.0-11.0) K/uL RBC (4.30-5.90) M/uL Hgb (12.0-16.0) g/dL Hct (36.0-46.0) % MCV (80.0-98.0) fL MCH (27.0-32.0) pg MCHC (31.0-37.0) g/dL RDW Std Deviation (28.0-62.0) fl RDW Coeff of [place] (11.0-15.0) % Plt Count (150-400) K/uL MPV (7.40-12.00) fL Neut % (Auto) (48.0-80.0) % Lymph % (Auto) (16.0-40.0) % [place] % (Auto) (0.0-15.0) % Eos % (Auto) (0.0-7.0) % Baso % (Auto) (0.0-1.5) % Neut # (Auto) (1.4-5.7) K/uL Lymph # (Auto) (0.6-2.4) K/uL [place] # (Auto) (0.0-0.8) K/uL Eos # (Auto) (0.0-0.7) K/uL Baso # (Auto) (0.0-0.1) K/uL Nucleated RBC % /100WBC Nucleated RBCs # K/uL ABG pH (7.35-7.45) ABG pCO2 (35-45) mmHG ABG pO2 (75-100) mmHG ABG HCO3 (22-26) mEq/L ABG Total CO2 ABG Base Excess (-2.0-2.0) Lactate 1.1 (0.20-2.00) mmol/L Sodium 144 (136-145) mmol/L Potassium 4.4 (3.5-5.1) mmol/L Chloride 109 H (98-107) mmol/L Carbon Dioxide 27.2 (21.0-32.0) mmol/L BUN 40 H (7.0-18.0) mg/dL Creatinine 1.3 H (0.6-1.0) mg/dL Est Cr Clr Drug Dosing 44.45 Estimated GFR (MDRD) 43.2 ml/min Glucose 247 H (74-106) mg/dL POC Glucose 166 H (60-110) mg/dL Hemoglobin A1c (4.5-6.2) % Calcium 8.0 L (8.5-10.1) mg/dL Phosphorus (2.6-4.7) mg/dL Magnesium (1.5-2.0) mg/dL Total Bilirubin (0.2-1.0) mg/dL AST (15-37) IU/L ALT (14-63) IU/L Alkaline Phosphatase (46-116) U/L Total Protein (6.4-8.2) g/dL Albumin (3.4-5.0) g/dL Globulin (2.0-3.5) g/dL Albumin/Globulin Ratio (1.3-2.8) Amylase (25-115) U/L Lipase (73-393) U/L Urine Color Urine Appearance Urine pH (5.0-8.0) Ur Specific [place] (1.001-1.035) Urine Protein (NEGATIVE) mg/dL Urine Glucose (UA) (NEGATIVE) mg/dL Urine Ketones (NEGATIVE) mg/dL Urine Occult Blood (NEGATIVE) Urine Nitrite (NEGATIVE) Urine Bilirubin (NEGATIVE) Urine Urobilinogen (<2.0) EU/dL Ur Leukocyte Esterase (NEGATIVE) Urine RBC (0-2/HPF) Urine WBC (0-5/HPF) Ur Epithelial Cells (NONE-FEW) Urine Bacteria (NEGATIVE) Urine Opiates Screen (NEGATIVE) Ur Oxycodone Screen (NEGATIVE) Urine Methadone Screen (NEGATIVE) Ur Barbiturates Screen (NEGATIVE) Ur Phencyclidine Scrn (NEGATIVE) Ur Amphetamine Screen (NEGATIVE) U Methamphetamines Scrn (NEGATIVE) U Benzodiazepines Scrn (NEGATIVE) U Cocaine Metab Screen (NEGATIVE) U Marijuana (THC) Screen (NEGATIVE) H. pylori IgG Antibody (NEG) 04/19/18 Range/Units 11:50 WBC (4.0-11.0) K/uL RBC (4.30-5.90) M/uL Hgb (12.0-16.0) g/dL Hct (36.0-46.0) % MCV (80.0-98.0) fL MCH (27.0-32.0) pg MCHC (31.0-37.0) g/dL RDW Std Deviation (28.0-62.0) fl RDW Coeff of [place] (11.0-15.0) % Plt Count (150-400) K/uL MPV (7.40-12.00) fL Neut % (Auto) (48.0-80.0) % Lymph % (Auto) (16.0-40.0) % [place] % (Auto) (0.0-15.0) % Eos % (Auto) (0.0-7.0) % Baso % (Auto) (0.0-1.5) % Neut # (Auto) (1.4-5.7) K/uL Lymph # (Auto) (0.6-2.4) K/uL [place] # (Auto) (0.0-0.8) K/uL Eos # (Auto) (0.0-0.7) K/uL Baso # (Auto) (0.0-0.1) K/uL Nucleated RBC % /100WBC Nucleated RBCs # K/uL ABG pH (7.35-7.45) ABG pCO2 (35-45) mmHG ABG pO2 (75-100) mmHG ABG HCO3 (22-26) mEq/L ABG Total CO2 ABG Base Excess (-2.0-2.0) Lactate (0.20-2.00) mmol/L Sodium (136-145) mmol/L Potassium (3.5-5.1) mmol/L Chloride (98-107) mmol/L Carbon Dioxide (21.0-32.0) mmol/L BUN (7.0-18.0) mg/dL Creatinine (0.6-1.0) mg/dL Est Cr Clr Drug Dosing Estimated GFR (MDRD) ml/min Glucose (74-106) mg/dL POC Glucose 265 H (60-110) mg/dL Hemoglobin A1c (4.5-6.2) % Calcium (8.5-10.1) mg/dL Phosphorus (2.6-4.7) mg/dL Magnesium (1.5-2.0) mg/dL Total Bilirubin (0.2-1.0) mg/dL AST (15-37) IU/L ALT (14-63) IU/L Alkaline Phosphatase (46-116) U/L Total Protein (6.4-8.2) g/dL Albumin (3.4-5.0) g/dL Globulin (2.0-3.5) g/dL Albumin/Globulin Ratio (1.3-2.8) Amylase (25-115) U/L Lipase (73-393) U/L Urine Color Urine Appearance Urine pH (5.0-8.0) Ur Specific [place] (1.001-1.035) Urine Protein (NEGATIVE) mg/dL Urine Glucose (UA) (NEGATIVE) mg/dL Urine Ketones (NEGATIVE) mg/dL Urine Occult Blood (NEGATIVE) Urine Nitrite (NEGATIVE) Urine Bilirubin (NEGATIVE) Urine Urobilinogen (<2.0) EU/dL Ur Leukocyte Esterase (NEGATIVE) Urine RBC (0-2/HPF) Urine WBC (0-5/HPF) Ur Epithelial Cells (NONE-FEW) Urine Bacteria (NEGATIVE) Urine Opiates Screen (NEGATIVE) Ur Oxycodone Screen (NEGATIVE) Urine Methadone Screen (NEGATIVE) Ur Barbiturates Screen (NEGATIVE) Ur Phencyclidine Scrn (NEGATIVE) Ur Amphetamine Screen (NEGATIVE) U Methamphetamines Scrn (NEGATIVE) U Benzodiazepines Scrn (NEGATIVE) U Cocaine Metab Screen (NEGATIVE) U Marijuana (THC) Screen (NEGATIVE) H. pylori IgG Antibody (NEG) Result Diagrams: 04/19/18 06:32 04/19/18 10:03 - Problem List (1) Hyperosmolar hyperglycemic coma due to diabetes mellitus without ketoacidosis SNOMED Code(s): 160551006 ICD Code: E11.01 - TYPE 2 DIABETES MELLITUS WITH HYPEROSMOLARITY WITH COMA; E11.65 - TYPE 2 DIABETES MELLITUS WITH HYPERGLYCEMIA Status: Acute Current Visit: Yes (2) Abdominal pain SNOMED Code(s): 73496845 ICD Code: R10.9 - UNSPECIFIED ABDOMINAL PAIN Status: Acute Current Visit : No Qualifiers: Abdominal location: generalized Qualified Code(s): R10.84 - Generalized abdominal pain (3) Anxiety SNOMED Code(s): 65829409 ICD Code: F41.9 - ANXIETY DISORDER, UNSPECIFIED Status: Acute Current Visit: No (4) Acute kidney insufficiency SNOMED Code(s): 204220584 ICD Code: N28.9 - DISORDER OF KIDNEY AND URETER, UNSPECIFIED Status: Acute Current Visit: Yes (5) Hydroureter, left SNOMED Code(s): 08905086 ICD Code: N13.4 - HYDROURETER Status: Acute Current Visit: Yes (6) Leucocytosis SNOMED Code(s): 079584446, 263675882 ICD Code: D72.829 - ELEVATED WHITE BLOOD CELL COUNT, UNSPECIFIED Status: Acute Current Visit: Yes (7) H. pylori infection SNOMED Code(s): 245171976 ICD Code: A04.8 - OTHER SPECIFIED BACTERIAL INTESTINAL INFECTIONS Status: Acute Current Visit: Yes Problem List Initiated/Reviewed/Updated: Yes Orders Last 24hrs: Active Orders 24 hr Category Date Time Status Patient Status [ADT] Stat ADT 04/18/18 21:54 Active Accu Check [Blood Glucose Check, Bedside] [RC] ONETIME Care 04/18/18 23:53 Inactive Blood Glucose Check, Bedside [RC] QIDACANDBED Care 04/19/18 11:30 Active EKG Documentation Completion [RC] STAT Care 04/18/18 20:48 Active Oxygen Therapy [RC] PRN Care 04/18/18 23:48 Active RT Aerosol Therapy [RC] ASDIRECTED Care 04/18/18 23:50 Active Up ad Amie [RC] ASDIRECTED Care 04/18/18 23:47 Active VTE/DVT Education [RC] PER UNIT ROUTINE Care 04/18/18 23:48 Active Vital Signs [RC] Q4H Care 04/18/18 23:48 Active ADA Diabetic [[place] [employer] Diet] [DIET Diet 04/19/18 Dinner Active ] Abdomen Pelvis w Cont [CT] Stat Exams 04/18/18 20:49 Taken Chest 1V Frontal [CR] Stat Exams 04/18/18 21:32 Taken BASIC METABOLIC PANEL,BMP [CHEM] AM Lab 04/20/18 05:11 Ordered BASIC METABOLIC PANEL,BMP [CHEM] AM Lab 04/21/18 05:11 Ordered BASIC METABOLIC PANEL,BMP [CHEM] AM Lab 04/22/18 05:11 Ordered CBC WITH AUTO DIFF [HEME] AM Lab 04/20/18 05:11 Ordered CBC WITH AUTO DIFF [HEME] AM Lab 04/21/18 05:11 Ordered CBC WITH AUTO DIFF [HEME] AM Lab 04/22/18 05:11 Ordered CBC WITH AUTO DIFF [HEME] AM Lab 04/23/18 05:11 Ordered CULTURE BLOOD [BC] Stat Lab 04/18/18 21:55 Received CULTURE BLOOD [BC] Stat Lab 04/18/18 21:55 Received DRUG SCREEN, URINE [URCHEM] Stat Lab 04/18/18 23:20 Ordered UA W/MICROSCOPIC [URIN] Stat Lab 04/18/18 23:20 Ordered Acetaminophen [Tylenol] Med 04/18/18 23:47 Active 650 mg PO Q4H PRN Albuterol/Ipratropium [DuoNeb 3.0-0.5 MG/3 ML] Med 04/18/18 23:47 Active 3 ml NEB Q4HRRT PRN Enoxaparin [Lovenox] Med 04/19/18 03:45 Active 30 mg SUBCUT Q24H Insulin Aspart [NovoLOG] Med 04/19/18 17:00 Active See Protocol SUBCUT ACBED Insulin Glarg,Human.Rec.Analog [LantUS Solostar] Med 04/19/18 21:00 Active 15 units SUBCUT BEDTIME Lactated Ringers [Ringers, Lactated] 1,000 ml Med 04/19/18 13:45 Active IV ASDIRECTED Morphine Med 04/18/18 23:47 Active 2 mg IVPUSH Q2H PRN Ondansetron [Zofran] Med 04/18/18 23:47 Active 4 mg IVPUSH Q4H PRN Sodium Chloride 0.9% [Saline Flush] Med 04/18/18 20:48 Active 10 ml FLUSH ASDIRECTED PRN Sodium Chloride 0.9% [Saline Flush] Med 04/18/18 21:01 Active 10 ml FLUSH ASDIRECTED PRN Sodium Chloride 0.9% [Saline Flush] Med 04/18/18 20:48 Active 2.5 ml FLUSH ASDIRECTED PRN Sodium Chloride 0.9% [Saline Flush] Med 04/18/18 21:01 Active 2.5 ml FLUSH ASDIRECTED PRN cefTRIAXone [Rocephin] 1,000 mg Med 04/19/18 20:30 Active Sodium Chloride 0.9% [Normal Saline] 50 ml IV Q24H Blood Culture x2 Reflex Set [OM.PC] Stat Ot 04/18/18 20:48 Ordered Saline Lock Insert [OM.PC] Stat Ot 04/18/18 20:48 Ordered Saline Lock Insert [OM.PC] Stat Ot 04/18/18 21:01 Ordered Sequential Compression Device [OM.PC] Per Unit Routine Ot 04/18/18 23:48 Ordered Resuscitation Status Routine Resus Stat 04/18/18 23:47 Ordered Medication Orders Acetaminophen (Tylenol) 650 mg PO Q4H PRN PRN Reason: Pain (Mild 1-3)/fever Albuterol/Ipratropium (Duoneb 3.0-0.5 Mg/3 Ml) 3 ml NEB Q4HRRT PRN PRN Reason: Shortness Of Breath/wheezing Enoxaparin Sodium (Lovenox) 30 mg SUBCUT Q24H [facility] Last Admin: 04/19/18 05:21 Dose: 30 mg Lactated Ringer's (Ringers, Lactated) 1,000 mls @ 125 mls/hr IV ASDIRECTED [facility] Last Admin: 04/19/18 15:45 Dose: 125 mls/hr Ceftriaxone Sodium 1,000 mg/ (Sodium Chloride) 50 mls @ 200 mls/hr IV Q24H [facility] Insulin Aspart (Novolog) 0 unit SUBCUT ACBED [facility]; Protocol Last Admin: 04/19/18 16:53 Dose: 10 units Insulin Glargine (Lantus Solostar) 15 units SUBCUT BEDTIME [facility] Morphine Sulfate (Morphine) 2 mg IVPUSH Q2H PRN PRN Reason: Pain (severe 7-10) Stop: 04/19/18 23:48 Ondansetron HCl (Zofran) 4 mg IVPUSH Q4H PRN PRN Reason: Nausea Sodium Chloride (Saline Flush) 10 ml FLUSH ASDIRECTED PRN PRN Reason: Keep Vein Open Sodium Chloride (Saline Flush) 2.5 ml FLUSH ASDIRECTED PRN PRN Reason: Keep Vein Open Sodium Chloride (Saline Flush) 10 ml FLUSH ASDIRECTED PRN PRN Reason: Keep Vein Open Sodium Chloride (Saline Flush) 2.5 ml FLUSH ASDIRECTED PRN PRN Reason: Keep Vein Open Assessment/Plan Comment:: Ct abdomen shows : severe rt proximal hydroureter and severe dilations of the rt pelvis , urinary bladder distension and mild left kidney pelvis dilatation and 1.7 cm cyst in the left kidney. assessment and plan Hyperosmolar hyperglycemic state/coma- will start patient on insulin drip and will monitor blood sugar as per insulin drip protocol , adjust insulin drip as per protocol , BMP q 4 h , IV fluids Ns at 200 cc /h CARLOS EDUARDO- due to dehydration- will manitor BUN /creatinine- will continue iv fluids Hydroureter rt - will consult urology Ua is negative Leucocytosis- patient was given 1 dose of rocephine 1 gram iv Hpylory positive antib- will start patient on protonix 40 mg po BID , Clarithromycin 500 mg po bid amoxicillin 1000 mg po BID for a duration of 14 days to eradicate H piloty. Will d/c rocephine as patient was started on this 2 other antibiotics and there is no obvious source of source of infection, but the WBC was climbing up Dvt prof- heparin sq
[2018-04-19] MEDS: Insulin Regular, Human 100 Units/ML 10 ML Vial SUBCUT ONE (22:02)
[2018-04-20] MEDS: Enoxaparin 30 MG/0.3 ML Syringe SUBCUT SCH (03:29)
[2018-04-20] MEDS ORDERED: Insulin Aspart 100 Units/ML 3 ML Pen SUBCUT SCH ×2 (07:30)
[2018-04-20] MEDS: Lactated Ringers 1,000 ML IV SCH ×2 (07:31→23:54)
[2018-04-20] MEDS: Pantoprazole 40 MG Tab.CR PO SCH ×2 (07:37→18:57)
[2018-04-20] MEDS: Insulin Aspart 100 Units/ML 3 ML Pen SUBCUT SCH ×6 (07:38→20:00)
[2018-04-20] MEDS: Amoxicillin 500 MG Cap PO SCH ×2 (08:25→20:00)
[2018-04-20] MEDS ORDERED: Insulin Glargine,Human Rec. Analog 100 Units/ML 3 ML Pen SUBCUT ONE (09:30)
--- NOTE | 2018-04-20 14:19 | PCM.PN ---
- General Info Date of Service: 04/20/18 Admission Dx/Problem (Free Text): Admission Diagnosis/Problem Admission Diagnosis/Problem lethargy , hyperglycemia - Review of Systems General: Reports: Fatigue HEENT: Reports: No Symptoms Pulmonary: Reports: No Symptoms Cardiovascular: Reports: No Symptoms Gastrointestinal: Reports: Abdominal Pain Genitourinary: Reports: No Symptoms Musculoskeletal: Reports: No Symptoms Skin: Reports: No Symptoms Neurological: Reports: No Symptoms Psychiatric: Reports: Depression, Mood Lability, Anxiety - Patient Data Vitals - Most Recent: Last Vital Signs Temp 97.7 F 04/20/18 12:00 Pulse 86 04/20/18 12:00 Resp 20 04/20/18 12:00 BP 139/93 H 04/20/18 12:00 Pulse Ox 100 04/20/18 12:00 Weight - Most Recent: 121 lb 4.068 oz I&O - Last 24 Hours: Intake & Output 04/19/18 04/20/18 04/20/18 22:59 06:59 14:59 Intake Total 600 2300 Output Total 400 1050 Balance 200 1250 Lab Results Last 24 Hours: Laboratory Results - last 24 hr 04/19/18 04/19/18 04/20/18 Range/Units 16:39 21:15 05:57 WBC (4.0-11.0) K/uL RBC (4.30-5.90) M/uL Hgb (12.0-16.0) g/dL Hct (36.0-46.0) % MCV (80.0-98.0) fL MCH (27.0-32.0) pg MCHC (31.0-37.0) g/dL RDW Std Deviation (28.0-62.0) fl RDW Coeff of [place] (11.0-15.0) % Plt Count (150-400) K/uL MPV (7.40-12.00) fL Neut % (Auto) (48.0-80.0) % Lymph % (Auto) (16.0-40.0) % [place] % (Auto) (0.0-15.0) % Eos % (Auto) (0.0-7.0) % Baso % (Auto) (0.0-1.5) % Neut # (Auto) (1.4-5.7) K/uL Lymph # (Auto) (0.6-2.4) K/uL [place] # (Auto) (0.0-0.8) K/uL Eos # (Auto) (0.0-0.7) K/uL Baso # (Auto) (0.0-0.1) K/uL Nucleated RBC % /100WBC Nucleated RBCs # K/uL Sodium (136-145) mmol/L Potassium (3.5-5.1) mmol/L Chloride (98-107) mmol/L Carbon Dioxide (21.0-32.0) mmol/L BUN (7.0-18.0) mg/dL Creatinine (0.6-1.0) mg/dL Est Cr Clr Drug Dosing mL/min Estimated GFR (MDRD) ml/min Glucose (74-106) mg/dL POC Glucose 356 H 293 H 207 H (60-110) mg/dL Calcium (8.5-10.1) mg/dL 04/20/18 04/20/18 Range/Units 06:18 06:18 WBC 8.55 (4.0-11.0) K/uL RBC 4.52 (4.30-5.90) M/uL Hgb 13.5 (12.0-16.0) g/dL Hct 39.8 (36.0-46.0) % MCV 88.1 (80.0-98.0) fL MCH 29.9 (27.0-32.0) pg MCHC 33.9 (31.0-37.0) g/dL RDW Std Deviation 42.1 (28.0-62.0) fl RDW Coeff of [place] 13 (11.0-15.0) % Plt Count 206 (150-400) K/uL MPV 12.00 (7.40-12.00) fL Neut % (Auto) 67.5 (48.0-80.0) % Lymph % (Auto) 25.0 (16.0-40.0) % [place] % (Auto) 5.8 (0.0-15.0) % Eos % (Auto) 1.6 (0.0-7.0) % Baso % (Auto) 0.1 (0.0-1.5) % Neut # (Auto) 5.8 H (1.4-5.7) K/uL Lymph # (Auto) 2.1 (0.6-2.4) K/uL [place] # (Auto) 0.5 (0.0-0.8) K/uL Eos # (Auto) 0.1 (0.0-0.7) K/uL Baso # (Auto) 0.0 (0.0-0.1) K/uL Nucleated RBC % 0.0 /100WBC Nucleated RBCs # 0 K/uL Sodium 141 (136-145) mmol/L Potassium 4.2 (3.5-5.1) mmol/L Chloride 107 (98-107) mmol/L Carbon Dioxide 29.0 (21.0-32.0) mmol/L BUN 25 H (7.0-18.0) mg/dL Creatinine 1.0 (0.6-1.0) mg/dL Est Cr Clr Drug Dosing 57.79 mL/min Estimated GFR (MDRD) 58.5 ml/min Glucose 230 H (74-106) mg/dL POC Glucose (60-110) mg/dL Calcium 8.5 (8.5-10.1) mg/dL Alan Results Last 24 Hours: Microbiology 04/18/18 21:55 Aerobic Blood Culture - Preliminary Blood - Venous - Lab Draw NO GROWTH AFTER 1 DAY Anaerobic Blood Culture - Preliminary NO GROWTH AFTER 1 DAY 04/18/18 21:55 Aerobic Blood Culture - Preliminary Blood - Venous NO GROWTH AFTER 1 DAY Anaerobic Blood Culture - Preliminary NO GROWTH AFTER 1 DAY Med Orders - Current: Current Medications Acetaminophen (Tylenol) 650 mg PO Q4H PRN PRN Reason: Pain (Mild 1-3)/fever Albuterol/Ipratropium (Duoneb 3.0-0.5 Mg/3 Ml) 3 ml NEB Q4HRRT PRN PRN Reason: Shortness Of Breath/wheezing Amoxicillin (Amoxil) 1,000 mg PO Q12HR [facility] Last Admin: 04/20/18 08:25 Dose: 1,000 mg Clarithromycin (Biaxin) 500 mg PO BID [facility] Last Admin: 04/20/18 08:25 Dose: 500 mg Enoxaparin Sodium (Lovenox) 30 mg SUBCUT Q24H [facility] Last Admin: 04/20/18 03:29 Dose: 30 mg Lactated Ringer's (Ringers, Lactated) 1,000 mls @ 125 mls/hr IV ASDIRECTED [facility] Last Admin: 04/20/18 07:31 Dose: 125 mls/hr Insulin Aspart (Novolog) 0 unit SUBCUT ACBED [facility]; Protocol Last Admin: 04/20/18 13:36 Dose: 2 units Insulin Aspart (Novolog) 8 unit SUBCUT TIDAC [facility] Last Admin: 04/20/18 13:37 Dose: 8 units Insulin Glargine (Lantus Solostar) 25 units SUBCUT BEDTIME [facility] Ondansetron HCl (Zofran) 4 mg IVPUSH Q4H PRN PRN Reason: Nausea Pantoprazole Sodium (Protonix) 40 mg PO BIDAC [facility] Last Admin: 04/20/18 07:37 Dose: 40 mg Sodium Chloride (Saline Flush) 10 ml FLUSH ASDIRECTED PRN PRN Reason: Keep Vein Open Sodium Chloride (Saline Flush) 2.5 ml FLUSH ASDIRECTED PRN PRN Reason: Keep Vein Open Sodium Chloride (Saline Flush) 10 ml FLUSH ASDIRECTED PRN PRN Reason: Keep Vein Open Sodium Chloride (Saline Flush) 2.5 ml FLUSH ASDIRECTED PRN PRN Reason: Keep Vein Open Discontinued Medications Sodium Chloride (Normal Saline) 1,000 mls @ 999 mls/hr IV STAT ONE Stop: 04/18/18 21:49 Last Admin: 04/18/18 21:55 Dose: 999 mls/hr Sodium Chloride (Normal Saline) 1,000 mls @ 999 mls/hr IV STAT ONE Stop: 04/18/18 22:01 Last Admin: 04/18/18 23:25 Dose: 999 mls/hr Insulin Human Regular 100 unit (/ Sodium Chloride) 100 mls @ 10 mls/hr IV TITRATE [facility]; Protocol Insulin Human Regular 100 unit (/ Sodium Chloride) 100 mls @ 10 mls/hr IV STAT [facility]; Protocol Last Titration: 04/19/18 03:20 Dose: 0 unit/hr, 0 mls/hr Sodium Chloride (Normal Saline) 1,000 mls @ 125 mls/hr IV ASDIRECTED [facility] Last Admin: 04/19/18 09:42 Dose: 125 mls/hr Dextrose/Water (Dextrose 5% In Water) 500 mls @ 100 mls/hr IV ASDIRECTED [facility] Ceftriaxone Sodium 1,000 mg/ (Sodium Chloride) 50 mls @ 200 mls/hr IV Q24H [facility] Last Admin: 04/19/18 23:00 Dose: 200 mls/hr Insulin Aspart (Novolog) 0 unit SUBCUT ACBREAKFASTANDBED [facility]; Protocol Last Admin: 04/19/18 07:39 Dose: 2 units Insulin Aspart (Novolog) 5 unit SUBCUT ACBED [facility] Insulin Aspart (Novolog) 5 unit SUBCUT TIDAC [facility] Last Admin: 04/20/18 07:40 Dose: 5 units Insulin Glargine (Lantus Solostar) 15 units SUBCUT BEDTIME [facility] Last Admin: 04/19/18 22:07 Dose: 15 units Insulin Glargine (Lantus Solostar) 10 units SUBCUT ONETIME ONE Stop: 04/20/18 09:31 Last Admin: 04/20/18 10:18 Dose: 10 units Insulin Human Regular (Novolin R) 20 unit SUBCUT ONETIME ONE; Protocol Stop: 04/19/18 21:05 Insulin Human Regular (Novolin R) Confirm Administered Dose 1,000 unit .ROUTE .ST-MED ONE Stop: 04/18/18 21:24 Last Admin: 04/18/18 21:27 Dose: 20 units Insulin Human Regular (Novolin R) 10 unit IVPUSH ONETIME ONE; Protocol Stop: 04/18/18 22:32 Last Admin: 04/19/18 00:10 Dose: 10 units Insulin Human Regular (Novolin R) 10 unit SUBCUT ONETIME ONE; Protocol Stop: 04/19/18 21:05 Last Admin: 04/19/18 22:02 Dose: Not Given Insulin Human Regular (Novolin R) 10 unit IVPUSH ONETIME ONE; Protocol Stop: 04/18/18 23:28 Last Admin: 04/18/18 23:31 Dose: 10 units Insulin Human Regular (Novolin R) 10 unit SUBCUT ONETIME ONE; Protocol Stop: 04/19/18 23:29 Insulin Human Regular (Novolin R) 10 unit SUBCUT ONETIME ONE; Protocol Stop: 04/18/18 23:29 Last Admin: 04/18/18 23:36 Dose: 10 units Insulin Human Regular (Novolin R) 10 unit IVPUSH ONETIME ONE; Protocol Stop: 04/19/18 00:04 Last Admin: 04/19/18 03:38 Dose: Not Given Insulin Human Regular (Novolin R) 10 unit IVPUSH ONETIME ONE; Protocol Stop: 04/19/18 00:19 Last Admin: 04/19/18 00:00 Dose: 10 units Insulin Human Regular (Novolin R) 10 unit SUBCUT ONETIME ONE; Protocol Stop: 04/19/18 00:20 Last Admin: 04/19/18 03:44 Dose: 10 units Insulin Human Regular (Novolin R) 10 unit SUBCUT ONETIME STA; Protocol Stop: 04/19/18 00:19 Last Admin: 04/19/18 05:14 Dose: Not Given Iopamidol (Isovue Multipack-370 (76%)) 200 ml IVPUSH ONETIME STA Stop: 04/18/18 22:39 Last Admin: 04/18/18 22:40 Dose: 80 ml Lorazepam (Ativan) 2 mg IVPUSH ONETIME ONE Stop: 04/19/18 11:28 Last Admin: 04/19/18 12:36 Dose: Not Given Morphine Sulfate (Morphine) 2 mg IVPUSH Q2H PRN PRN Reason: Pain (severe 7-10) Stop: 04/19/18 23:48 - Exam General: Alert, Oriented HEENT: Pupils Equal, Pupils Reactive Neck: Supple, Trachea Midline, No JVD, No Thyromegaly Lungs: Clear to Auscultation, Normal Respiratory Effort Cardiovascular: Regular Rate, Regular Rhythm, No Murmurs GI/Abdominal Exam: Normal Bowel Sounds, Soft, No Organomegaly, No Distention, No Abnormal Bruit, No Mass, Tender (Female) Exam: Normal External Exam Back Exam: Normal Inspection Extremities: Normal Inspection Skin: Warm, Dry Neurological: No New Focal Deficit Psy/Mental Status: Alert, Normal Affect - Problem List & Annotations (1) Hyperosmolar hyperglycemic coma due to diabetes mellitus without ketoacidosis SNOMED Code(s): 284090020 Code(s): E11.01 - TYPE 2 DIABETES MELLITUS WITH HYPEROSMOLARITY WITH COMA; E11.65 - TYPE 2 DIABETES MELLITUS WITH HYPERGLYCEMIA Status: Acute Current Visit: Yes (2) Abdominal pain SNOMED Code(s): 69727504 Code(s): R10.9 - UNSPECIFIED ABDOMINAL PAIN Status: Acute Current Visit: No Qualifiers: Abdominal location: generalized Qualified Code(s): R10.84 - Generalized abdominal pain (3) Anxiety SNOMED Code(s): 62017118 Code(s): F41.9 - ANXIETY DISORDER, UNSPECIFIED Status: Acute Current Visit: No (4) Acute kidney insufficiency SNOMED Code(s): 320621077 Code(s): N28.9 - DISORDER OF KIDNEY AND URETER, UNSPECIFIED Status: Acute Current Visit: Yes (5) Hydroureter, left SNOMED Code(s): 12667013 Code(s): N13.4 - HYDROURETER Status: Acute Current Visit: Yes (6) Leucocytosis SNOMED Code(s): 652668380, 647667340 Code(s): D72.829 - ELEVATED WHITE BLOOD CELL COUNT, UNSPECIFIED Status: Acute Current Visit: Yes (7) H. pylori infection SNOMED Code(s): 967113052 Code(s): A04.8 - OTHER SPECIFIED BACTERIAL INTESTINAL INFECTIONS Status: Acute Current Visit: Yes - Problem List Review Problem List Initiated/Reviewed/Updated: Yes - My Orders Last 24 Hours: My Active Orders 04/19/18 13:45 Lactated Ringers [Ringers, Lactated] 1,000 ml IV ASDIRECTED 04/19/18 17:00 Insulin Aspart [NovoLOG] See Protocol SUBCUT ACBED 04/19/18 Dinner ADA Diabetic [[place] [employer] Diet] [DIET] 04/20/18 01:02 Notify Provider Consults [RC] ASDIRECTED 04/20/18 07:30 Pantoprazole [ProTONIX] 40 mg PO BIDAC 04/20/18 09:00 Amoxicillin [Amoxil] 1,000 mg PO Q12HR Clarithromycin [Biaxin] 500 mg PO BID 04/20/18 09:54 Consult to Physician [CONS] Routine 04/20/18 09:55 Notify Provider Consults [RC] ASDIRECTED 04/20/18 11:30 Insulin Aspart [NovoLOG] 8 unit SUBCUT TIDAC 04/20/18 11:36 Consult to Physical Therapy [PT Evaluation and Treatment] [CONS] Routine 04/20/18 21:00 Insulin Glarg,Human.Rec.Analog [LantUS Solostar] 25 units SUBCUT BEDTIME 04/21/18 05:11 BASIC METABOLIC PANEL,BMP [CHEM] AM CBC WITH AUTO DIFF [HEME] AM 04/22/18 05:11 BASIC METABOLIC PANEL,BMP [CHEM] AM CBC WITH AUTO DIFF [HEME] AM 04/23/18 05:11 CBC WITH AUTO DIFF [HEME] AM - Plan Plan:: Ct abdomen shows : severe rt proximal hydroureter and severe dilations of the rt pelvis , urinary bladder distension and mild left kidney pelvis dilatation and 1.7 cm cyst in the left kidney. assessment and plan Hyperosmolar hyperglycemic state/coma- resolved , start patient on Lantus 25 units at bedtime , insulin aspart 8 units with meals , insulin aspart on sliding scale ac and HS CARLOS EDUARDO- due to dehydration- resolved , continue iv fluids Hydroureter rt - seen by urologyst randy , will order us kidney , no immediate intervention needed , he will follow patient as outpatient. Ua is negative Leucocytosis- patient was given 1 dose of Rocephin 1 gram iv H pillory positive antib- will start patient on protonix 40 mg po BID , Clarithromycin 500 mg po bid amoxicillin 1000 mg po BID for a duration of 14 days to eradicate H piloty. Will d/c rocephine as patient was started on this 2 other antibiotics and there is no obvious source of source of infection, but the WBC was climbing up Dvt prof- heparin sq depression and anxiety - will start patient on zoloft 25 mg po daily. abdominal pain - will f/up
[2018-04-20] MEDS ORDERED: Insulin Glargine,Human Rec. Analog 100 Units/ML 3 ML Pen SUBCUT SCH (21:00)
[2018-04-20] MEDS: Sertraline 25 MG Tab PO SCH (21:08)
[2018-04-21] MEDS: Enoxaparin 30 MG/0.3 ML Syringe SUBCUT SCH (03:30)
[2018-04-21 05:57] LABS: CHLORIDE,CL 106 mmol/L (98-107); SODIUM,NA 140 mmol/L (136-145)
[2018-04-21] MEDS: Insulin Aspart 100 Units/ML 3 ML Pen SUBCUT SCH ×5 (06:31→22:16)
[2018-04-21] MEDS: Pantoprazole 40 MG Tab.CR PO SCH ×2 (06:52→18:03)
[2018-04-21] MEDS: Lactated Ringers 1,000 ML IV SCH (07:58)
[2018-04-21] MEDS: Amoxicillin 500 MG Cap PO SCH ×2 (08:17→22:14)
--- NOTE | 2018-04-21 08:28 | CONS ---
DATE OF CONSULTATION: 04/20/2018 DATE OF : 1965 PRIMARY CARE PHYSICIAN: None PCP This 53-year-old. She is in the hospital, she has been here now for 3 days. I was asked to see her today because she has a CT scan of abdomen and pelvis with IV contrast that was read as showing severe right-sided hydronephrosis and hydroureter. Looking at the lab work, her white blood count was normal. Her BUN is 25, creatinine 1.0, creatinine clearance about 58. I do not see a UA. Her vital signs are normal. When I asked her why she is here, she essentially said she just did not feel good overall. She is diabetic. She knew she was diabetic. She was supposed to be taking insulin. She said when she was home, she did not necessarily want to take the insulin. She said she suffers from depression and anxiety and was not really sure that she wants to live. PHYSICAL EXAMINATION: GENERAL: She is alert and oriented. ABDOMEN: Shows mild lower abdominal tenderness. She has a lower midline abdominal scar from previous hysterectomy. She had ovarian CA, had chemotherapy following that, but that was close to 30 years ago. She did not have radiation. 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 The lower moiety ureter and renal pelvis are dilated. The upper one does not appear to be. The 2 ureters seem to join at the pelvic brim and the caliber there appears to normalize. I see no masses next to the ureters at that level. The renal parenchyma is normal and equal on both sides. So whatever she has now, it has not affected the appearance of the renal parenchyma on that side. However, it was noted on her CT scan that the bladder was pretty distended. She said she can void and if she presses on her lower abdomen, she can void significant amount more. It is possible that we are dealing with diabetic bladder dysfunction. IMPRESSION: Hydronephrosis of unclear significance at this point. The next step for me is to scan the bladder postvoid at least twice to make sure that she adequately empties her bladder. It is obviously important to give her the proper antidiabetic medications because her blood sugar is about 250. I will also at some point need a UA. We will see her in the office in followup, do a renal ultrasound and bladder ultrasound and take it from there. Thank you for this consult. ENEIDA / ROLF /[id number]
[2018-04-21] MEDS ORDERED: ClonazePAM 0.5 MG Tab PO PRN (08:42)
--- NOTE | 2018-04-21 09:49 | PCM.PN ---
- General Info Date of Service: 04/21/18 Admission Dx/Problem (Free Text): Admission Diagnosis/Problem Admission Diagnosis/Problem lethargy , hyperglycemia Subjective Update: Feeling a little better today. Alert and awake. Denies pain. But confirms continued anxiety about everything, very anxious when EVS member in her room cleaning. She reports some nausea and overall not feeling well today. Feels a little shaky. No chest pain or SOB. No abdominal pain. Functional Status: Reports: Pain Controlled, Tolerating Diet, Ambulating, Urinating - Review of Systems General: Reports: Fatigue, Malaise. Denies: Fever HEENT: Reports: No Symptoms. Denies: Headaches, Sore Throat, Rhinitis, Visual Changes Pulmonary: Reports: No Symptoms. Denies: Shortness of Breath Cardiovascular: Reports: No Symptoms. Denies: Chest Pain, Palpitations Gastrointestinal: Reports: Nausea. Denies: Abdominal Pain Genitourinary: Reports: No Symptoms. Denies: Dysuria, Frequency, Burning Musculoskeletal: Reports: No Symptoms Skin: Reports: No Symptoms Neurological: Reports: No Symptoms Psychiatric: Reports: Anxiety - Patient Data Vitals - Most Recent: Last Vital Signs Temp 98.4 F 04/21/18 08:00 Pulse 85 04/21/18 08:00 Resp 19 04/21/18 08:00 BP 132/83 04/21/18 08:00 Pulse Ox 99 04/21/18 08:00 Weight - Most Recent: 55 kg I&O - Last 24 Hours: Intake & Output 04/20/18 04/21/18 04/21/18 22:59 06:59 14:59 Intake Total 480 1600 Output Total 400 2000 Balance 80 -400 Lab Results Last 24 Hours: Laboratory Results - last 24 hr 04/20/18 04/20/18 04/20/18 Range/Units 10:10 11:55 16:52 WBC (4.0-11.0) K/uL RBC (4.30-5.90) M/uL Hgb (12.0-16.0) g/dL Hct (36.0-46.0) % MCV (80.0-98.0) fL MCH (27.0-32.0) pg MCHC (31.0-37.0) g/dL RDW Std Deviation (28.0-62.0) fl RDW Coeff of Kennedi (11.0-15.0) % Plt Count (150-400) K/uL MPV (7.40-12.00) fL Neut % (Auto) (48.0-80.0) % Lymph % (Auto) (16.0-40.0) % [place] % (Auto) (0.0-15.0) % Eos % (Auto) (0.0-7.0) % Baso % (Auto) (0.0-1.5) % Neut # (Auto) (1.4-5.7) K/uL Lymph # (Auto) (0.6-2.4) K/uL [place] # (Auto) (0.0-0.8) K/uL Eos # (Auto) (0.0-0.7) K/uL Baso # (Auto) (0.0-0.1) K/uL Nucleated RBC % /100WBC Nucleated RBCs # K/uL Sodium (136-145) mmol/L Potassium (3.5-5.1) mmol/L Chloride (98-107) mmol/L Carbon Dioxide (21.0-32.0) mmol/L BUN (7.0-18.0) mg/dL Creatinine (0.6-1.0) mg/dL Est Cr Clr Drug Dosing mL/min Estimated GFR (MDRD) ml/min Glucose (74-106) mg/dL POC Glucose 190 H 173 H 167 H (60-110) mg/dL Calcium (8.5-10.1) mg/dL 04/20/18 04/21/18 04/21/18 Range/Units 19:51 05:16 05:16 WBC 6.47 (4.0-11.0) K/uL RBC 4.31 (4.30-5.90) M/uL Hgb 12.6 (12.0-16.0) g/dL Hct 37.6 (36.0-46.0) % MCV 87.2 (80.0-98.0) fL MCH 29.2 (27.0-32.0) pg MCHC 33.5 (31.0-37.0) g/dL RDW Std Deviation 40.6 (28.0-62.0) fl RDW Coeff of Kennedi 13 (11.0-15.0) % Plt Count 164 (150-400) K/uL MPV 11.70 (7.40-12.00) fL Neut % (Auto) 64.3 (48.0-80.0) % Lymph % (Auto) 27.2 (16.0-40.0) % [place] % (Auto) 5.3 (0.0-15.0) % Eos % (Auto) 3.2 (0.0-7.0) % Baso % (Auto) 0.0 (0.0-1.5) % Neut # (Auto) 4.2 (1.4-5.7) K/uL Lymph # (Auto) 1.8 (0.6-2.4) K/uL [place] # (Auto) 0.3 (0.0-0.8) K/uL Eos # (Auto) 0.2 (0.0-0.7) K/uL Baso # (Auto) 0.0 (0.0-0.1) K/uL Nucleated RBC % 0.0 /100WBC Nucleated RBCs # 0 K/uL Sodium 140 (136-145) mmol/L Potassium 3.9 (3.5-5.1) mmol/L Chloride 106 (98-107) mmol/L Carbon Dioxide 31.0 (21.0-32.0) mmol/L BUN 12 (7.0-18.0) mg/dL Creatinine 0.7 (0.6-1.0) mg/dL Est Cr Clr Drug Dosing 82.55 mL/min Estimated GFR (MDRD) > 60.0 ml/min Glucose 110 H (74-106) mg/dL POC Glucose 238 H (60-110) mg/dL Calcium 8.4 L (8.5-10.1) mg/dL 04/21/18 04/21/18 Range/Units 06:20 08:35 WBC (4.0-11.0) K/uL RBC (4.30-5.90) M/uL Hgb (12.0-16.0) g/dL Hct (36.0-46.0) % MCV (80.0-98.0) fL MCH (27.0-32.0) pg MCHC (31.0-37.0) g/dL RDW Std Deviation (28.0-62.0) fl RDW Coeff of Kennedi (11.0-15.0) % Plt Count (150-400) K/uL MPV (7.40-12.00) fL Neut % (Auto) (48.0-80.0) % Lymph % (Auto) (16.0-40.0) % [place] % (Auto) (0.0-15.0) % Eos % (Auto) (0.0-7.0) % Baso % (Auto) (0.0-1.5) % Neut # (Auto) (1.4-5.7) K/uL Lymph # (Auto) (0.6-2.4) K/uL [place] # (Auto) (0.0-0.8) K/uL Eos # (Auto) (0.0-0.7) K/uL Baso # (Auto) (0.0-0.1) K/uL Nucleated RBC % /100WBC Nucleated RBCs # K/uL Sodium (136-145) mmol/L Potassium (3.5-5.1) mmol/L Chloride (98-107) mmol/L Carbon Dioxide (21.0-32.0) mmol/L BUN (7.0-18.0) mg/dL Creatinine (0.6-1.0) mg/dL Est Cr Clr Drug Dosing mL/min Estimated GFR (MDRD) ml/min Glucose (74-106) mg/dL POC Glucose 91 98 (60-110) mg/dL Calcium (8.5-10.1) mg/dL Alan Results Last 24 Hours: Microbiology 04/18/18 21:55 Aerobic Blood Culture - Preliminary Blood - Venous - Lab Draw NO GROWTH AFTER 2 DAYS Anaerobic Blood Culture - Preliminary NO GROWTH AFTER 2 DAYS 04/18/18 21:55 Aerobic Blood Culture - Preliminary Blood - Venous NO GROWTH AFTER 2 DAYS Anaerobic Blood Culture - Preliminary NO GROWTH AFTER 2 DAYS Med Orders - Current: Current Medications Acetaminophen (Tylenol) 650 mg PO Q4H PRN PRN Reason: Pain (Mild 1-3)/fever Albuterol/Ipratropium (Duoneb 3.0-0.5 Mg/3 Ml) 3 ml NEB Q4HRRT PRN PRN Reason: Shortness Of Breath/wheezing Amoxicillin (Amoxil) 1,000 mg PO Q12HR ANTHONY Last Admin: 04/21/18 08:17 Dose: 1,000 mg Clarithromycin (Biaxin) 500 mg PO BID ANTHONY Last Admin: 04/21/18 08:17 Dose: 500 mg Clonazepam (Klonopin) 0.5 mg PO BID PRN PRN Reason: Anxiety Last Admin: 04/21/18 09:17 Dose: 0.5 mg Enoxaparin Sodium (Lovenox) 30 mg SUBCUT Q24H ANTHONY Last Admin: 04/21/18 03:30 Dose: 30 mg Insulin Aspart (Novolog) 0 unit SUBCUT ACBED [facility]; Protocol Last Admin: 04/21/18 06:31 Dose: Not Given Insulin Glargine (Lantus Solostar) 20 units SUBCUT BEDTIME ANTHONY Ondansetron HCl (Zofran) 4 mg IVPUSH Q4H PRN PRN Reason: Nausea Pantoprazole Sodium (Protonix) 40 mg PO BIDAC [facility] Last Admin: 04/21/18 06:52 Dose: 40 mg Sertraline HCl (Zoloft) 25 mg PO BEDTIME ANTHONY Last Admin: 04/20/18 21:08 Dose: 25 mg Sodium Chloride (Saline Flush) 10 ml FLUSH ASDIRECTED PRN PRN Reason: Keep Vein Open Sodium Chloride (Saline Flush) 2.5 ml FLUSH ASDIRECTED PRN PRN Reason: Keep Vein Open Sodium Chloride (Saline Flush) 10 ml FLUSH ASDIRECTED PRN PRN Reason: Keep Vein Open Sodium Chloride (Saline Flush) 2.5 ml FLUSH ASDIRECTED PRN PRN Reason: Keep Vein Open Discontinued Medications Sodium Chloride (Normal Saline) 1,000 mls @ 999 mls/hr IV STAT ONE Stop: 04/18/18 21:49 Last Admin: 04/18/18 21:55 Dose: 999 mls/hr Sodium Chloride (Normal Saline) 1,000 mls @ 999 mls/hr IV STAT ONE Stop: 04/18/18 22:01 Last Admin: 04/18/18 23:25 Dose: 999 mls/hr Insulin Human Regular 100 unit (/ Sodium Chloride) 100 mls @ 10 mls/hr IV TITRATE [facility]; Protocol Insulin Human Regular 100 unit (/ Sodium Chloride) 100 mls @ 10 mls/hr IV STAT [facility]; Protocol Last Titration: 04/19/18 03:20 Dose: 0 unit/hr, 0 mls/hr Sodium Chloride (Normal Saline) 1,000 mls @ 125 mls/hr IV ASDIRECTED [facility] Last Admin: 04/19/18 09:42 Dose: 125 mls/hr Dextrose/Water (Dextrose 5% In Water) 500 mls @ 100 mls/hr IV ASDIRECTED ANTHONY Lactated Ringer's (Ringers, Lactated) 1,000 mls @ 125 mls/hr IV ASDIRECTED ANTHONY Last Admin: 04/21/18 07:58 Dose: 125 mls/hr Ceftriaxone Sodium 1,000 mg/ (Sodium Chloride) 50 mls @ 200 mls/hr IV Q24H ANTHONY Last Admin: 04/19/18 23:00 Dose: 200 mls/hr Insulin Aspart (Novolog) 0 unit SUBCUT ACBREAKFASTANDBED [facility]; Protocol Last Admin: 04/19/18 07:39 Dose: 2 units Insulin Aspart (Novolog) 5 unit SUBCUT ACBED [facility] Insulin Aspart (Novolog) 5 unit SUBCUT TIDAC [facility] Last Admin: 04/20/18 07:40 Dose: 5 units Insulin Aspart (Novolog) 8 unit SUBCUT TIDAC [facility] Last Admin: 04/21/18 06:32 Dose: Not Given Insulin Aspart (Novolog) 6 unit SUBCUT TIDAC [facility] Insulin Glargine (Lantus Solostar) 15 units SUBCUT BEDTIME [facility] Last Admin: 04/19/18 22:07 Dose: 15 units Insulin Glargine (Lantus Solostar) 25 units SUBCUT BEDTIME [facility] Last Admin: 04/20/18 20:01 Dose: 25 units Insulin Glargine (Lantus Solostar) 10 units SUBCUT ONETIME ONE Stop: 04/20/18 09:31 Last Admin: 04/20/18 10:18 Dose: 10 units Insulin Glargine (Lantus Solostar) 22 units SUBCUT BEDTIME [facility] Insulin Human Regular (Novolin R) 20 unit SUBCUT ONETIME ONE; Protocol Stop: 04/19/18 21:05 Insulin Human Regular (Novolin R) Confirm Administered Dose 1,000 unit .ROUTE .STK-MED ONE Stop: 04/18/18 21:24 Last Admin: 04/18/18 21:27 Dose: 20 units Insulin Human Regular (Novolin R) 10 unit IVPUSH ONETIME ONE; Protocol Stop: 04/18/18 22:32 Last Admin: 04/19/18 00:10 Dose: 10 units Insulin Human Regular (Novolin R) 10 unit SUBCUT ONETIME ONE; Protocol Stop: 04/19/18 21:05 Last Admin: 04/19/18 22:02 Dose: Not Given Insulin Human Regular (Novolin R) 10 unit IVPUSH ONETIME ONE; Protocol Stop: 04/18/18 23:28 Last Admin: 04/18/18 23:31 Dose: 10 units Insulin Human Regular (Novolin R) 10 unit SUBCUT ONETIME ONE; Protocol Stop: 04/19/18 23:29 Insulin Human Regular (Novolin R) 10 unit SUBCUT ONETIME ONE; Protocol Stop: 04/18/18 23:29 Last Admin: 04/18/18 23:36 Dose: 10 units Insulin Human Regular (Novolin R) 10 unit IVPUSH ONETIME ONE; Protocol Stop: 04/19/18 00:04 Last Admin: 04/19/18 03:38 Dose: Not Given Insulin Human Regular (Novolin R) 10 unit IVPUSH ONETIME ONE; Protocol Stop: 04/19/18 00:19 Last Admin: 04/19/18 00:00 Dose: 10 units Insulin Human Regular (Novolin R) 10 unit SUBCUT ONETIME ONE; Protocol Stop: 04/19/18 00:20 Last Admin: 04/19/18 03:44 Dose: 10 units Insulin Human Regular (Novolin R) 10 unit SUBCUT ONETIME STA; Protocol Stop: 04/19/18 00:19 Last Admin: 04/19/18 05:14 Dose: Not Given Iopamidol (Isovue Multipack-370 (76%)) 200 ml IVPUSH ONETIME STA Stop: 04/18/18 22:39 Last Admin: 04/18/18 22:40 Dose: 80 ml Lorazepam (Ativan) 2 mg IVPUSH ONETIME ONE Stop: 04/19/18 11:28 Last Admin: 04/19/18 12:36 Dose: Not Given Morphine Sulfate (Morphine) 2 mg IVPUSH Q2H PRN PRN Reason: Pain (severe 7-10) Stop: 04/19/18 23:48 - Exam General: Alert, Oriented, Cooperative, Other (rubbing back and swaying slightly , reports she is feeling anxious this morning. ) Neck: Supple Lungs: Clear to Auscultation, Normal Respiratory Effort Cardiovascular: Regular Rate, Regular Rhythm GI/Abdominal Exam: Normal Bowel Sounds, Soft, Non-Tender, No Organomegaly, No Distention, No Abnormal Bruit, No Mass, Pelvis Stable Back Exam: Normal Inspection, Full Range of Motion Extremities: Normal Inspection, Normal Range of Motion, Non-Tender, No Pedal Edema, Normal Capillary Refill Neurological: No New Focal Deficit Psy/Mental Status: Alert, Anxious (having trouble taking pills "God I hate taking pills.") - Problem List & Annotations (1) H. pylori infection SNOMED Code(s): 372713905 Code(s): A04.8 - OTHER SPECIFIED BACTERIAL INTESTINAL INFECTIONS Status: Acute Current Visit: Yes (2) Hydroureter, left SNOMED Code(s): 69951694 Code(s): N13.4 - HYDROURETER Status: Acute Current Visit: Yes (3) Uncontrolled diabetes mellitus SNOMED Code(s): 751669200, 003822669 Code(s): E11.65 - TYPE 2 DIABETES MELLITUS WITH HYPERGLYCEMIA Status: Chronic Current Visit: Yes Qualifiers: Diabetes mellitus type: type 2 Diabetes mellitus snf insulin use: with snf use Diabetes mellitus complication status: with hyperglycemia Qualified Code(s): E11.65 - Type 2 diabetes mellitus with hyperglycemia; Z79.4 - half-way (current) use of insulin (4) Anxiety SNOMED Code(s): 36189884 Code(s): F41.9 - ANXIETY DISORDER, UNSPECIFIED Status: Chronic Current Visit: No (5) History of medication noncompliance SNOMED Code(s): 259422896 Code(s): Z91.14 - PATIENT'S OTHER NONCOMPLIANCE WITH MEDICATION REGIMEN Status: Chronic Current Visit: No (6) Hyperosmolar hyperglycemic coma due to diabetes mellitus without ketoacidosis SNOMED Code(s): 576563385 Code(s): E11.01 - TYPE 2 DIABETES MELLITUS WITH HYPEROSMOLARITY WITH COMA; E11.65 - TYPE 2 DIABETES MELLITUS WITH HYPERGLYCEMIA Status: Resolved Current Visit: Yes - Problem List Review Problem List Initiated/Reviewed/Updated: Yes - My Orders Last 24 Hours: My Active Orders 04/21/18 21:00 Insulin Glarg,Human.Rec.Analog [LantUS Solostar] 20 units SUBCUT BEDTIME - Plan Plan:: This 53 year old female admitted with lethargy and hyperglycemia 1. Hyperosmolar hyperglycemic state/coma: Resolved. BS has significantly dropped likely causing patient to feel malaise. Will decrease Lantus to 20 units at bedtime and Novolog SSI insulin, stop 6 units scheduled. Monitor BS today and consult Diabetic education to speak with patient. 2. H. Pylori: Continue triple therapy Protonix, Clarithromycin and Amoxicillin. Epigastric pain is better. Leukocytosis resolved. 3. Hydroureter right: Consulted Dr Curtis, he saw her yesterday. Will follow as outpatient. Voiding well, limited post voiding residual minimal. 4. Depression/anxiety - Zoloft 25 mg po daily started 04/20. As well Clonazepam PRN BID for anxiety. Was previously on Seroquel daily and follow at [facility]. Will check to see if she has continued follow up here. VTE prophylaxis: Lovenox. Dispo: 1 day, likely discharge tomorrow. Will decrease insulin and monitor malaise. Will arrange follow up with PCP, DM educator, Dr Curtis and [facility] services.
--- NOTE | 2018-04-21 10:01 | CR ---
EXAM DATE: 04/18/18 PATIENT'S AGE: 53 Patient: MITCHELL MCCRAY Facility: [place], [place] Site . Site : 1965 Study: XRay Chest [id number]/18/2018 10:31:14 PM Ordering Physician: Doctor Ta Final Report: INDICATION: Pain, shortness of breath. TECHNIQUE: Single AP view. COMPARISON: December 07, 2017. FINDINGS: Heart mediastinum and pulmonary vessels are stable and within normal limits. The lungs are clear. There is no new/acute cardiopulmonary process. Upper abdomen stable. IMPRESSION: No acute process. Stable findings since 12/07/2017. Dictated by Jonatan Nixon MD @ Apr 18 2018 10:48PM (Electronic Signature) Report Signed by Proxy. COLETTE
--- NOTE | 2018-04-21 10:02 | CT ---
EXAM DATE: 04/18/18 PATIENT'S AGE: 53 Patient: MITCHELL MCCRAY Facility: [place], [place] Site . Site : 1965 Study: CT Abdomen/Pelvis WITH [id number]/2018 10:42:57 PM Ordering Physician: Doctor Ta Final Report: INDICATION: General abdominal pain TECHNIQUE: CT Abdomen and pelvis with i.v. contrast. Coronal and sagittal reformats were obtained. CONTRAST: 80 mL Isovue 370 COMPARISON: 12/07/2017 FINDINGS: Moderate image quality degradation noted due to beam hardening artifacts from scanning with the arms by the patient`s sides. Lower chest: Unremarkable. Liver: Unremarkable. Spleen: Unremarkable. Pancreas: Unremarkable. Gallbladder: Unremarkable. Kidney: Severe proximal right hydroureter and moderate right renal pelvic caliectasis present. Mild left renal pelviectasis is noted. There is a cyst in the mid zone of the left kidney measuring 1.7 cm. Adrenal: Unremarkable. Bowel: Unremarkable. The appendix cannot be identified but there are no inflammatory changes noted in the right lower quadrant. Vascular: Unremarkable. Lymph: Unremarkable. Peritoneum: Unremarkable. No pneumoperitoneum is seen. No significant ascites is noted. Pelvis: Severe bladder distention is noted, measuring 12.3 x 13.2 x 14.2 cm ( Ellipsoidal volume estimate: 1207.2 mL). Soft tissue: Unremarkable. Bone: Unremarkable for age. IMPRESSIONS: 1. Severe bladder distention is noted, measuring 12.3 x 13.2 x 14.2 cm ( Ellipsoidal volume estimate: 1207.2 mL). 2. Severe proximal right hydroureter and moderate right renal pelvic caliectasis present. Mild left renal pelviectasis is noted. This may be due to vesicoureteral reflux or increase hydrostatic pressure from bladder distension. Dictated by Lv Warren MD @ 04/18/2018 11:10:54 PM Please note that all CT scans at this facility use dose modulation, iterative reconstruction, and/or weight-based dosing when appropriate to reduce radiation dose to as low as reasonably achievable. Dictated by: Lv Warren MD @ 04/18/2018 23:13:23 (Electronic Signature) Report Signed by Proxy. [facility]
[2018-04-21] MEDS ORDERED: Insulin Aspart 100 Units/ML 3 ML Pen SUBCUT SCH (11:30)
[2018-04-21] MEDS ORDERED: LORazepam 2 MG/ML SDV IVPUSH ONE (19:32)
[2018-04-21] MEDS ORDERED: Insulin Glargine,Human Rec. Analog 100 Units/ML 3 ML Pen SUBCUT SCH ×2 (21:00)
[2018-04-21] MEDS ORDERED: LORazepam 2 MG/ML SDV IVPUSH STA (21:57)
[2018-04-21] MEDS: Sertraline 25 MG Tab PO SCH (22:14)
[2018-04-22] MEDS: Enoxaparin 30 MG/0.3 ML Syringe SUBCUT SCH (06:05)
[2018-04-22] MEDS: Pantoprazole 40 MG Tab.CR PO SCH (06:42)
[2018-04-22] MEDS: Insulin Aspart 100 Units/ML 3 ML Pen SUBCUT SCH (06:43)
[2018-04-22 06:54] LABS: CHLORIDE,CL 103 mmol/L (98-107); SODIUM,NA 138 mmol/L (136-145)
[2018-04-22 08:55] VITALS: BP 131/87
[2018-04-22] MEDS: Amoxicillin 500 MG Cap PO SCH (08:55)
--- NOTE | 2018-04-22 09:01 | PCM.DCSUM1 ---
Discharge Summary - Hospital Course Brief History: This 53 year old female with pmh of anxiety, depression, uncontrolled DM presented to hospital due to lethargy. Patient was not feeling well for the past 6 days. She was very poor historian, history as per my discussion with the ER attending and the patient. She did not take her insulin for long time and used to follow up with doctor Melany in clinic but did not see him recently. She vomited for 3 days and stopped vomiting few days ago, just prior to coming to hospital. . In ER her blood sugar were above 1000. Leukocytosis noted 12,670, Bicarb 17.4, BUN 60 Cr 2.1 A1c 13[address] of adomen/pelvis revealed severe right proximale hydroureter and severe dilations of right renal pelvis, urinary bladder distension and mild left kidney pelvis dilation with 1.7 cm cyst to left kidney. Dr Curtis consulted. She was admitted for hyperosmolar hyperglycemic state, dehydration, CARLOS EDUARDO and abdominal pain. - Discharge Data Discharge Date: 04/22/18 Discharge Disposition: Home, Self-Care 01 Condition: Good - Discharge Diagnosis/Problem(s) (1) H. pylori infection SNOMED Code(s): 344965140 ICD Code: A04.8 - OTHER SPECIFIED BACTERIAL INTESTINAL INFECTIONS Status: Acute Current Visit: Yes (2) Hydroureter, left SNOMED Code(s): 80580879 ICD Code: N13.4 - HYDROURETER Status: Acute Current Visit: Yes (3) Uncontrolled diabetes mellitus SNOMED Code(s): 106649699, 279057356 ICD Code: E11.65 - TYPE 2 DIABETES MELLITUS WITH HYPERGLYCEMIA Status: Chronic Current Visit: Yes Qualifiers: Diabetes mellitus type: type 2 Diabetes mellitus half-way insulin use: with half-way use Diabetes mellitus complication status: with hyperglycemia Qualified Code(s): E11.65 - Type 2 diabetes mellitus with hyperglycemia; Z79.4 - [facility] (current) use of insulin (4) Anxiety SNOMED Code(s): 54591862 ICD Code: F41.9 - ANXIETY DISORDER, UNSPECIFIED Status: Chronic Current Visit: No (5) History of medication noncompliance SNOMED Code(s): 430539153 ICD Code: Z91.14 - PATIENT'S OTHER NONCOMPLIANCE WITH MEDICATION REGIMEN Status: Chronic Current Visit: No (6) Hyperosmolar hyperglycemic coma due to diabetes mellitus without ketoacidosis SNOMED Code(s): 984591133 ICD Code: E11.01 - TYPE 2 DIABETES MELLITUS WITH HYPEROSMOLARITY WITH COMA; E11.65 - TYPE 2 DIABETES MELLITUS WITH HYPERGLYCEMIA Status: Resolved Current Visit: Yes - Patient Summary/Data Consults: Consultations 04/20/18 09:54 Consult to Physician [CONS] Routine 04/20/18 11:36 Consult to Physical Therapy [PT Evaluation and Treatment] [CONS] Routine 04/21/18 08:47 Consult to Dietary [Consult to Construction Assistant] [CONS] Routine 04/21/18 09:55 Consult to Shuttle Operator [Consult to Diabetic Nurse Specialist] [CONS] Routine - Patient Instructions Diet: Diabetic Diet Activity: No Strenuous Activities Driving: Do Not Drive Showering/Bathing: May Shower Notify Provider of: Fever, Increased Pain, Swelling and Redness, Drainage, Nausea and/or Vomiting - Discharge Plan Prescriptions/Med Rec: Amoxicillin 1,000 mg PO BID #40 capsule Clarithromycin [Biaxin] 500 mg PO BID #20 tablet Insulin Aspart [NovoLOG] See Protocol SUBCUT ACBED #1 pen Insulin Glarg,Human.Rec.Analog [Lantus Solostar] 20 units SUBCUT BEDTIME #1 pen Pantoprazole [ProTONIX] 40 mg PO BIDAC #20 tab.cr QUEtiapine [SEROquel] 25 mg PO BEDTIME #30 tab Home Medications: Home Meds Amoxicillin 1,000 mg PO BID #40 capsule 04/22/18 [Rx] Clarithromycin [Biaxin] 500 mg PO BID #20 tablet 04/22/18 [Rx] Insulin Aspart [NovoLOG] See Protocol SUBCUT ACBED #1 pen 04/22/18 [Rx] Insulin Glarg,Human.Rec.Analog [Lantus Solostar] 20 units SUBCUT BEDTIME #1 pen 04/22/18 [Rx] Pantoprazole [ProTONIX] 40 mg PO BIDAC #20 tab.cr 04/22/18 [Rx] QUEtiapine [SEROquel] 25 mg PO BEDTIME #30 tab 04/22/18 [Rx] Patient Handouts: Type 2 Diabetes Mellitus, Diagnosis, Adult, Insulin Aspart; Insulin Aspart Protamine injection, Amoxicillin capsules or tablets, Quetiapine tablets, Dehydration, Adult, [id number], Pantoprazole tablets, Clarithromycin tablets, Insulin Glargine injection Referrals: Anel Kraft RN [Registered Nurse] - 04/30/18 2:00 pm (Diabetic Nurse Educator) Leander Nielsen MD [Resident] - 04/30/18 3:00 pm Inna Curtis MD [Physician] - - Discharge Summary/Plan Comment DC Time >30 min.: No Discharge Summary/Plan Comment: Discharge Diagnoses: Uncontrolled DM type 2, insulin dependent. Anxiety Depression H pylori infection Dehydration-resolved CARLOS EDUARDO-resolved Hyperosmolar hyperglycemic state- resolved Hydroureter- Dr Curtis consulted, follow up as outpatient to be arranged. Medication Non-compliance. Alisha was admitted and treated with insulin and IVF resuscitation. CARLOS EDUARDO and hyperosmolar hyperglycemia state resolved. community educator consulted to encourage adequate controlled and medication compliance with insulin to insure adequate treatment of diabetes at home. She was restarted on last known Lantus dosing, 20 units at bedtime along with SSI Novolog with meals. BS were controlled in mid 150-170s. She was noted to have abdominal pain, epigastric in nature. H pylori was obtained and noted to be positive. She has consulted with Dr Renee, general surgery in the past regarding EGD, but she had declined this procedure at last visit with him. She was started on triple therapy, Clarithromycin, Amoxicillin and Protonix for 14 days. She reports abdominal pain has to do a lot with her anxiety. She was previously on Seroquel which she reports worked well but had since stopped taking it and has not followed with any provider. She is high risk for medication non-compliance again. Todday she is feeling much better and is demanding discharge home. CARLOS EDUARDO has resolved along with leukocytosis. Please see Dr Curtis consult note regarding hydroureter, she is voiding well and will follow up as outpatient. She will be discharged home with prescriptions for all medications including Lantus, Novolog, Triple therapy for H pylori x 10 more days, and Seroquel. She will be scheduled to see PCP for follow up in 1 week, Dr Curtis regarding hydroureter, and [facility] for psychiatric assistance. She was seeing them in the past and again, quit going. - General Info Date of Service: 04/22/18 Admission Dx/Problem (Free Text: Admission Diagnosis/Problem Admission Diagnosis/Problem lethargy , hyperglycemia Subjective Update: Feeling better today. Was given Ativan overnight for agitation and feels very sleepy and never wants those medications again. NO chest pain or SOB. Demanding discharge. Functional Status: Reports: Pain Controlled, Tolerating Diet, Ambulating, Urinating - Review of Systems General: Reports: No Symptoms. Denies: Fever Pulmonary: Reports: No Symptoms. Denies: Shortness of Breath Cardiovascular: Reports: No Symptoms. Denies: Chest Pain Gastrointestinal: Reports: No Symptoms. Denies: Abdominal Pain, Nausea, Vomiting Genitourinary: Reports: No Symptoms. Denies: Dysuria, Frequency, Burning Skin: Reports: No Symptoms Neurological: Reports: No Symptoms Psychiatric: Reports: No Symptoms - Patient Data Vitals - Most Recent: Last Vital Signs Temp 98.2 F 04/22/18 08:00 Pulse 96 04/22/18 08:00 Resp 16 04/22/18 08:00 BP 131/87 04/22/18 08:00 Pulse Ox 100 04/22/18 08:00 Weight - Most Recent: 55 kg I&O - Last 24 hours: Intake & Output 04/21/18 04/22/18 04/22/18 22:59 06:59 14:59 Intake Total 50 200 Output Total 1200 500 Balance -1150 -300 Lab Results - Last 24 hrs: Laboratory Results - last 24 hr 04/21/18 04/21/18 04/21/18 Range/Units 11:30 16:17 21:27 WBC (4.0-11.0) K/uL RBC (4.30-5.90) M/uL Hgb (12.0-16.0) g/dL Hct (36.0-46.0) % MCV (80.0-98.0) fL MCH (27.0-32.0) pg MCHC (31.0-37.0) g/dL RDW Std Deviation (28.0-62.0) fl RDW Coeff of [place] (11.0-15.0) % Plt Count (150-400) K/uL MPV (7.40-12.00) fL Neut % (Auto) (48.0-80.0) % Lymph % (Auto) (16.0-40.0) % [place] % (Auto) (0.0-15.0) % Eos % (Auto) (0.0-7.0) % Baso % (Auto) (0.0-1.5) % Neut # (Auto) (1.4-5.7) K/uL Lymph # (Auto) (0.6-2.4) K/uL [place] # (Auto) (0.0-0.8) K/uL Eos # (Auto) (0.0-0.7) K/uL Baso # (Auto) (0.0-0.1) K/uL Nucleated RBC % /100WBC Nucleated RBCs # K/uL Sodium (136-145) mmol/L Potassium (3.5-5.1) mmol/L Chloride (98-107) mmol/L Carbon Dioxide (21.0-32.0) mmol/L BUN (7.0-18.0) mg/dL Creatinine (0.6-1.0) mg/dL Est Cr Clr Drug Dosing mL/min Estimated GFR (MDRD) ml/min Glucose (74-106) mg/dL POC Glucose 149 H 152 H 251 H (60-110) mg/dL Calcium (8.5-10.1) mg/dL 04/22/18 04/22/18 04/22/18 Range/Units 05:10 05:20 06:42 WBC 5.70 (4.0-11.0) K/uL RBC 4.43 (4.30-5.90) M/uL Hgb 13.3 (12.0-16.0) g/dL Hct 38.9 (36.0-46.0) % MCV 87.8 (80.0-98.0) fL MCH 30.0 (27.0-32.0) pg MCHC 34.2 (31.0-37.0) g/dL RDW Std Deviation 40.8 (28.0-62.0) fl RDW Coeff of [place] 13 (11.0-15.0) % Plt Count 163 (150-400) K/uL MPV 12.00 (7.40-12.00) fL Neut % (Auto) 65.8 (48.0-80.0) % Lymph % (Auto) 24.2 (16.0-40.0) % [place] % (Auto) 6.8 (0.0-15.0) % Eos % (Auto) 3.0 (0.0-7.0) % Baso % (Auto) 0.2 (0.0-1.5) % Neut # (Auto) 3.8 (1.4-5.7) K/uL Lymph # (Auto) 1.4 (0.6-2.4) K/uL [place] # (Auto) 0.4 (0.0-0.8) K/uL Eos # (Auto) 0.2 (0.0-0.7) K/uL Baso # (Auto) 0.0 (0.0-0.1) K/uL Nucleated RBC % 0.0 /100WBC Nucleated RBCs # 0 K/uL Sodium 138 (136-145) mmol/L Potassium 4.1 (3.5-5.1) mmol/L Chloride 103 (98-107) mmol/L Carbon Dioxide 29.8 (21.0-32.0) mmol/L BUN 14 (7.0-18.0) mg/dL Creatinine 0.9 (0.6-1.0) mg/dL Est Cr Clr Drug Dosing 64.21 mL/min Estimated GFR (MDRD) > 60.0 ml/min Glucose 212 H (74-106) mg/dL POC Glucose 175 H (60-110) mg/dL Calcium 8.5 (8.5-10.1) mg/dL CRISSY Results - Last 24 hrs: Microbiology 04/18/18 21:55 Aerobic Blood Culture - Preliminary Blood - Venous - Lab Draw NO GROWTH AFTER 3 DAYS Anaerobic Blood Culture - Preliminary NO GROWTH AFTER 3 DAYS 04/18/18 21:55 Aerobic Blood Culture - Preliminary Blood - Venous NO GROWTH AFTER 3 DAYS Anaerobic Blood Culture - Preliminary NO GROWTH AFTER 3 DAYS Med Orders - Current: Current Medications Acetaminophen (Tylenol) 650 mg PO Q4H PRN PRN Reason: Pain (Mild 1-3)/fever Albuterol/Ipratropium (Duoneb 3.0-0.5 Mg/3 Ml) 3 ml NEB Q4HRRT PRN PRN Reason: Shortness Of Breath/wheezing Amoxicillin (Amoxil) 1,000 mg PO Q12HR ANTHONY Last Admin: 04/22/18 08:55 Dose: 1,000 mg Clarithromycin (Biaxin) 500 mg PO BID ANTHONY Last Admin: 04/22/18 08:55 Dose: 500 mg Enoxaparin Sodium (Lovenox) 30 mg SUBCUT Q24H [facility] Last Admin: 04/22/18 06:05 Dose: Not Given Insulin Aspart (Novolog) 0 unit SUBCUT ACBED [facility]; Protocol Last Admin: 04/22/18 06:43 Dose: 2 units Insulin Glargine (Lantus Solostar) 20 units SUBCUT BEDTIME [facility] Last Admin: 04/21/18 22:15 Dose: 20 units Ondansetron HCl (Zofran) 4 mg IVPUSH Q4H PRN PRN Reason: Nausea Pantoprazole Sodium (Protonix) 40 mg PO BIDAC [facility] Last Admin: 04/22/18 06:42 Dose: 40 mg Sertraline HCl (Zoloft) 25 mg PO BEDTIME [facility] Last Admin: 04/21/18 22:14 Dose: 25 mg Sodium Chloride (Saline Flush) 10 ml FLUSH ASDIRECTED PRN PRN Reason: Keep Vein Open Sodium Chloride (Saline Flush) 2.5 ml FLUSH ASDIRECTED PRN PRN Reason: Keep Vein Open Sodium Chloride (Saline Flush) 10 ml FLUSH ASDIRECTED PRN PRN Reason: Keep Vein Open Sodium Chloride (Saline Flush) 2.5 ml FLUSH ASDIRECTED PRN PRN Reason: Keep Vein Open Discontinued Medications Clonazepam (Klonopin) 0.5 mg PO BID PRN PRN Reason: Anxiety Last Admin: 04/21/18 09:17 Dose: 0.5 mg Sodium Chloride (Normal Saline) 1,000 mls @ 999 mls/hr IV STAT ONE Stop: 04/18/18 21:49 Last Admin: 04/18/18 21:55 Dose: 999 mls/hr Sodium Chloride (Normal Saline) 1,000 mls @ 999 mls/hr IV STAT ONE Stop: 04/18/18 22:01 Last Admin: 04/18/18 23:25 Dose: 999 mls/hr Insulin Human Regular 100 unit (/ Sodium Chloride) 100 mls @ 10 mls/hr IV TITRATE [facility]; Protocol Insulin Human Regular 100 unit (/ Sodium Chloride) 100 mls @ 10 mls/hr IV STAT [facility]; Protocol Last Titration: 04/19/18 03:20 Dose: 0 unit/hr, 0 mls/hr Sodium Chloride (Normal Saline) 1,000 mls @ 125 mls/hr IV ASDIRECTED [facility] Last Admin: 04/19/18 09:42 Dose: 125 mls/hr Dextrose/Water (Dextrose 5% In Water) 500 mls @ 100 mls/hr IV ASDIRECTED ANTHONY Lactated Ringer's (Ringers, Lactated) 1,000 mls @ 125 mls/hr IV ASDIRECTED [facility] Last Admin: 04/21/18 07:58 Dose: 125 mls/hr Ceftriaxone Sodium 1,000 mg/ (Sodium Chloride) 50 mls @ 200 mls/hr IV Q24H [facility] Last Admin: 04/19/18 23:00 Dose: 200 mls/hr Insulin Aspart (Novolog) 0 unit SUBCUT ACBREAKFASTANDBED [facility]; Protocol Last Admin: 04/19/18 07:39 Dose: 2 units Insulin Aspart (Novolog) 5 unit SUBCUT ACBED [facility] Insulin Aspart (Novolog) 5 unit SUBCUT TIDAC [facility] Last Admin: 04/20/18 07:40 Dose: 5 units Insulin Aspart (Novolog) 8 unit SUBCUT TIDAC [facility] Last Admin: 04/21/18 06:32 Dose: Not Given Insulin Aspart (Novolog) 6 unit SUBCUT TIDAC [facility] Insulin Glargine (Lantus Solostar) 15 units SUBCUT BEDTIME [facility] Last Admin: 04/19/18 22:07 Dose: 15 units Insulin Glargine (Lantus Solostar) 25 units SUBCUT BEDTIME [facility] Last Admin: 04/20/18 20:01 Dose: 25 units Insulin Glargine (Lantus Solostar) 10 units SUBCUT ONETIME ONE Stop: 04/20/18 09:31 Last Admin: 04/20/18 10:18 Dose: 10 units Insulin Glargine (Lantus Solostar) 22 units SUBCUT BEDTIME [facility] Insulin Human Regular (Novolin R) 20 unit SUBCUT ONETIME ONE; Protocol Stop: 04/19/18 21:05 Insulin Human Regular (Novolin R) Confirm Administered Dose 1,000 unit .ROUTE .STK-MED ONE Stop: 04/18/18 21:24 Last Admin: 04/18/18 21:27 Dose: 20 units Insulin Human Regular (Novolin R) 10 unit IVPUSH ONETIME ONE; Protocol Stop: 04/18/18 22:32 Last Admin: 04/19/18 00:10 Dose: 10 units Insulin Human Regular (Novolin R) 10 unit SUBCUT ONETIME ONE; Protocol Stop: 04/19/18 21:05 Last Admin: 04/19/18 22:02 Dose: Not Given Insulin Human Regular (Novolin R) 10 unit IVPUSH ONETIME ONE; Protocol Stop: 04/18/18 23:28 Last Admin: 04/18/18 23:31 Dose: 10 units Insulin Human Regular (Novolin R) 10 unit SUBCUT ONETIME ONE; Protocol Stop: 04/19/18 23:29 Insulin Human Regular (Novolin R) 10 unit SUBCUT ONETIME ONE; Protocol Stop: 04/18/18 23:29 Last Admin: 04/18/18 23:36 Dose: 10 units Insulin Human Regular (Novolin R) 10 unit IVPUSH ONETIME ONE; Protocol Stop: 04/19/18 00:04 Last Admin: 04/19/18 03:38 Dose: Not Given Insulin Human Regular (Novolin R) 10 unit IVPUSH ONETIME ONE; Protocol Stop: 04/19/18 00:19 Last Admin: 04/19/18 00:00 Dose: 10 units Insulin Human Regular (Novolin R) 10 unit SUBCUT ONETIME ONE; Protocol Stop: 04/19/18 00:20 Last Admin: 04/19/18 03:44 Dose: 10 units Insulin Human Regular (Novolin R) 10 unit SUBCUT ONETIME STA; Protocol Stop: 04/19/18 00:19 Last Admin: 04/19/18 05:14 Dose: Not Given Iopamidol (Isovue Multipack-370 (76%)) 200 ml IVPUSH ONETIME STA Stop: 04/18/18 22:39 Last Admin: 04/18/18 22:40 Dose: 80 ml Lorazepam (Ativan) 2 mg IVPUSH ONETIME ONE Stop: 04/19/18 11:28 Last Admin: 04/19/18 12:36 Dose: Not Given Lorazepam (Ativan) 1 mg IVPUSH ONETIME ONE Stop: 04/21/18 19:33 Last Admin: 04/21/18 19:50 Dose: 1 mg Lorazepam (Ativan) 1 mg IVPUSH STAT STA Stop: 04/21/18 21:58 Last Admin: 04/21/18 22:21 Dose: 1 mg Morphine Sulfate (Morphine) 2 mg IVPUSH Q2H PRN PRN Reason: Pain (severe 7-10) Stop: 04/19/18 23:48 - Exam General: Reports: Alert, Oriented, Cooperative, No Acute Distress Neck: Reports: Supple Lungs: Reports: Clear to Auscultation, Normal Respiratory Effort Cardiovascular: Reports: Regular Rate, Regular Rhythm GI/Abdominal Exam: Normal Bowel Sounds, Soft, Non-Tender, No Organomegaly, No Distention, No Abnormal Bruit, No Mass, Pelvis Stable Back Exam: Reports: Normal Inspection, Full Range of Motion Extremities: Normal Inspection, Normal Range of Motion, Non-Tender, No Pedal Edema, Normal Capillary Refill Neurological: Reports: No New Focal Deficit Psy/Mental Status: Reports: Alert, Normal Affect, Normal Mood
== END 2018-04-22 10:30 | disposition home or self-care (01) ==
LOC: MW.ED 20:11 → MW.MS 21:54
PROVIDERS: ADMIT Internal Medicine; ATTEND Internal Medicine
DX: E11.65 Type 2 diabetes mellitus with hyperglycemia (principal); E11.01 Type 2 diabetes mellitus with hyperosmolarity with coma; A04.8 Other specified bacterial intestinal infections; N13.4 Hydroureter; N13.30 Unspecified hydronephrosis; F41.9 Anxiety disorder, unspecified; F32.9 Major depressive disorder, single episode, unspecified; E86.0 Dehydration; N17.9 Acute kidney failure, unspecified; I10 Essential (primary) hypertension; E11.43 Type 2 diabetes mellitus with diabetic autonomic (poly)neuropathy; K31.84 Gastroparesis; F17.210 Nicotine dependence, cigarettes, uncomplicated; G89.29 Other chronic pain; M54.9 Dorsalgia, unspecified; G43.909 Migraine, unspecified, not intractable, without status migrainosus; Z79.4 Long term (current) use of insulin; Z91.14 Patient's other noncompliance with medication regimen; Z88.2 Allergy status to sulfonamides; Z91.040 Latex allergy status; Z91.048 Other nonmedicinal substance allergy status
CPT/HCPCS: 36415; 36600; 71045; 74177; 80048; 80053; 80305; 81001; 82150; 82803; 82962; 83036; 83605; 83690; 83735; 84100; 85025; 86677; 87040; 93005; 96361; 96372; 96374; 96375; 96376; 99285; A9270; G0378; J0696; J1650; J1815; J2060; J7030; J7040; J7050; J7120; Q9967; 96365

== ENCOUNTER 2018-04-27 03:38 | Observation (INO) | payer MEDICAID ==
[2018-04-27] MEDS ORDERED: Sodium Chloride 0.9% 1,000 ML IV ONE (03:43)
[2018-04-27] MEDS ORDERED: Insulin Regular, Human 100 Units/ML 10 ML Vial IVPUSH ONE ×3 (03:44→05:45)
[2018-04-27] MEDS ORDERED: Insulin Regular, Human 100 Units/ML 10 ML Vial SUBCUT STA ×2 (03:45→04:37)
--- NOTE | 2018-04-27 03:48 | EDM.PDOC ---
ED HPI GENERAL MEDICAL PROBLEM - General Stated Complaint: SUGAR PROBLEMS Time Seen by Provider: 04/27/18 03:46 Source of Information: Reports: Patient - History of Present Illness INITIAL COMMENTS - FREE TEXT/NARRATIVE: HISTORY AND PHYSICAL: History of present illness: [Patient recently discharged from the hospital, presents with nausea vomiting and elevated glucose levels, she has medication noncompliant doesn't and has not taken any insulin since discharge from the hospital No fever chills sweats no chest pain shortness breath headache dizziness or palpitation no bowel or urine symptoms ] Review of systems: As per history of present illness and below otherwise all systems reviewed and negative. Past medical history: As per history of present illness and as reviewed below otherwise noncontributory. Surgical history: As per history of present illness and as reviewed below otherwise noncontributory. Social history: No reported history of drug or alcohol abuse. Family history: As per history of present illness and as reviewed below otherwise noncontributory. Physical exam: HEENT: Atraumatic, normocephalic, pupils reactive, negative for conjunctival pallor or scleral icterus, mucous membranes moist, throat clear, neck supple, nontender, trachea midline. Lungs: Clear to auscultation, breath sounds equal bilaterally, chest nontender. Heart: S1S2, regular, negative for clicks, rubs, or JVD. Abdomen: Soft, nondistended, nontender. Negative for masses or hepatosplenomegaly. Negative for costovertebral tenderness. Pelvis: Stable nontender. Genitourinary: Deferred. Rectal: Deferred. Extremities: Atraumatic, negative for cords or calf pain. Neurovascular unremarkable. Neuro: Awake, alert, oriented. Cranial nerves II through XII unremarkable. Cerebellum unremarkable. Motor and sensory unremarkable throughout. Exam nonfocal. Diagnostics: [CBC CMP UA troponin lipase EKG Chest 1 view ] Therapeutics: [ 1 L normal saline bolus Zofran 8 mg IV Insulin 10 units IV 10 units subcutaneous ] Ativan 1 mg IV Impression: [ hyperglycemia greater than 500 on arrival ]Recent admission to hospital History of medication noncompliance Definitive disposition and diagnosis as appropriate pending reevaluation and review of above. generalized Pain Score (Numeric/FACES): 5 - Related Data Allergies Allergy/AdvReac Type Severity Reaction Status Date / Time latex Allergy Rash Verified 04/27/18 04:06 Sulfa (Sulfonamide Allergy Airway Verified 04/27/18 04:06 Antibiotics) Tightness sulfur dioxide Allergy Airway Verified 04/27/18 04:06 Tightness Home Meds: Home Meds Amoxicillin 1,000 mg PO BID #40 capsule 04/22/18 [Rx] Clarithromycin [Biaxin] 500 mg PO BID #20 tablet 04/22/18 [Rx] Insulin Aspart [NovoLOG] See Protocol SUBCUT ACBED #1 pen 04/22/18 [Rx] Insulin Glarg,Human.Rec.Analog [Lantus Solostar] 20 units SUBCUT BEDTIME #1 pen 04/22/18 [Rx] Pantoprazole [ProTONIX] 40 mg PO BIDAC #20 tab.cr 04/22/18 [Rx] QUEtiapine [SEROquel] 25 mg PO BEDTIME #30 tab 04/22/18 [Rx] Past Medical History - Past Health History Medical/Surgical History: Denies Medical/Surgical History HEENT History: Reports: Other (See Below) Other HEENT History: has top denture Cardiovascular History: Reports: Hypertension Other Cardiovascular History: murmur as an infant Respiratory History: Reports: Other (See Below) Other Respiratory History: chronic daily smoker Gastrointestinal History: Reports: Helicobacter Pylori, Other (See Below) Other Gastrointestinal History: gastroparesis Genitourinary History: Reports: None [employer] History: Reports: Musculoskeletal History: Reports: Back Pain, Chronic Neurological History: Reports: Migraines, Other (See Below) Other Neuro History: "Silent Migraines" Psychiatric History: Reports: Anxiety, Depression Endocrine/Metabolic History: Reports: Diabetes, Type II Other Endocrine/Metabolic History: Pt questions this Dx Hematologic History: Reports: Other (See Below) Other Hematologic History: States "bacterium in blood" Immunologic History: Reports: None Other Immunologic History: states was in the hospital in [place] last summer with blood infection "not sure what it was called" Oncologic (Cancer) History: Reports: Ovarian Dermatologic History: Reports: Eczema - Infectious Disease History Infectious Disease History: Reports: Chicken Pox - Past Surgical History Head Surgeries/Procedures: Reports: None GI Surgical History: Reports: None - History Comment History Comment: Son says she's been evaluated for these sxs in past but doesn' t recall where w/u was done (including CT of abd). No EGD ever done. The h pylori was dx'd by serologies. Social & Family History - Family History Family Medical History: Noncontributory Cardiac: Reports: Hypertension Other Cardiac Family History: Mother, Aunt Respiratory: Reports: COPD Other Respiratory Family Hisory: Uncle GI: Reports: None Neurological: Reports: Other (See Below) Other Neurological Family History: Stroke-Grandmother Endocrine/Metabolic: Reports: Diabetes, type II - Caffeine Use Caffeine Use: Reports: Soda - Living Situation & Occupation Living situation: Reports: Single Occupation: Unemployed ED ROS GENERAL - Review of Systems Review Of Systems: See Below ED EXAM, GENERAL - Physical Exam Exam: See Below Course - Vital Signs Last Recorded V/S: Last Vital Signs Temp 97.6 F 04/27/18 03:45 Pulse 90 04/27/18 05:45 Resp 19 04/27/18 05:45 BP 140/80 04/27/18 05:45 Pulse Ox 97 04/27/18 05:45 - Orders/Labs/Meds Orders: Active Orders 24 hr Category Date Time Status EKG Documentation Completion [RC] STAT Care 04/27/18 03:46 Active Chest 1V Frontal [CR] Stat Exams 04/27/18 03:46 Taken UA W/MICROSCOPIC [URIN] Stat Lab 04/27/18 03:44 Ordered Sodium Chloride 0.9% [Normal Saline] 1,000 ml Med 04/27/18 04:45 Active IV STAT Medication Orders Sodium Chloride (Normal Saline) 1,000 mls @ 125 mls/hr IV STAT ANTHONY Last Admin: 04/27/18 04:42 Dose: 125 mls/hr Labs: Laboratory Tests 04/27/18 04/27/18 04/27/18 Range/Units 03:45 03:45 04:35 WBC 8.67 (4.0-11.0) K/uL RBC 4.17 L (4.30-5.90) M/uL Hgb 12.4 (12.0-16.0) g/dL Hct 35.7 L (36.0-46.0) % MCV 85.6 (80.0-98.0) fL MCH 29.7 (27.0-32.0) pg MCHC 34.7 (31.0-37.0) g/dL RDW Std Deviation 38.8 (28.0-62.0) fl RDW Coeff of Kennedi 13 (11.0-15.0) % Plt Count 245 (150-400) K/uL MPV 13.70 H (7.40-12.00) fL Neut % (Auto) 74.8 (48.0-80.0) % Lymph % (Auto) 17.3 (16.0-40.0) % Sierra % (Auto) 6.7 (0.0-15.0) % Eos % (Auto) 1.0 (0.0-7.0) % Baso % (Auto) 0.2 (0.0-1.5) % Neut # (Auto) 6.5 H (1.4-5.7) K/uL Lymph # (Auto) 1.5 (0.6-2.4) K/uL Sierra # (Auto) 0.6 (0.0-0.8) K/uL Eos # (Auto) 0.1 (0.0-0.7) K/uL Baso # (Auto) 0.0 (0.0-0.1) K/uL Nucleated RBC % 0.0 /100WBC Nucleated RBCs # 0 K/uL ABG pH (7.35-7.45) ABG pCO2 (35-45) mmHG ABG pO2 (75-100) mmHG ABG HCO3 (22-26) mEq/L ABG Total CO2 ABG Base Excess (-2.0-2.0) Sodium 130 L (136-145) mmol/L Potassium 3.5 (3.5-5.1) mmol/L Chloride 95 L (98-107) mmol/L Carbon Dioxide 21.6 (21.0-32.0) mmol/L BUN 15 (7.0-18.0) mg/dL Creatinine 1.3 H (0.6-1.0) mg/dL Est Cr Clr Drug Dosing 45.83 mL/min Estimated GFR (MDRD) 43.2 ml/min Glucose 723 H* (74-106) mg/dL POC Glucose 444 H (60-110) mg/dL Calcium 9.0 (8.5-10.1) mg/dL Total Bilirubin 0.5 (0.2-1.0) mg/dL AST 29 (15-37) IU/L ALT 57 (14-63) IU/L Alkaline Phosphatase 129 H (46-116) U/L Troponin I < 0.050 (0.000-0.056) ng/mL Total Protein 6.5 (6.4-8.2) g/dL Albumin 3.2 L (3.4-5.0) g/dL Globulin 3.3 (2.0-3.5) g/dL Albumin/Globulin Ratio 1.0 L (1.3-2.8) Lipase 273 (73-393) U/L Ethyl Alcohol <3 mg/dL 04/27/18 04/27/18 Range/Units 05:43 05:52 WBC (4.0-11.0) K/uL RBC (4.30-5.90) M/uL Hgb (12.0-16.0) g/dL Hct (36.0-46.0) % MCV (80.0-98.0) fL MCH (27.0-32.0) pg MCHC (31.0-37.0) g/dL RDW Std Deviation (28.0-62.0) fl RDW Coeff of Kennedi (11.0-15.0) % Plt Count (150-400) K/uL MPV (7.40-12.00) fL Neut % (Auto) (48.0-80.0) % Lymph % (Auto) (16.0-40.0) % Sierra % (Auto) (0.0-15.0) % Eos % (Auto) (0.0-7.0) % Baso % (Auto) (0.0-1.5) % Neut # (Auto) (1.4-5.7) K/uL Lymph # (Auto) (0.6-2.4) K/uL Sierra # (Auto) (0.0-0.8) K/uL Eos # (Auto) (0.0-0.7) K/uL Baso # (Auto) (0.0-0.1) K/uL Nucleated RBC % /100WBC Nucleated RBCs # K/uL ABG pH 7.524 H (7.35-7.45) ABG pCO2 29 L (35-45) mmHG ABG pO2 102 H (75-100) mmHG ABG HCO3 24 (22-26) mEq/L ABG Total CO2 21.5 ABG Base Excess 2.0 (-2.0-2.0) Sodium (136-145) mmol/L Potassium (3.5-5.1) mmol/L Chloride (98-107) mmol/L Carbon Dioxide (21.0-32.0) mmol/L BUN (7.0-18.0) mg/dL Creatinine (0.6-1.0) mg/dL Est Cr Clr Drug Dosing mL/min Estimated GFR (MDRD) ml/min Glucose (74-106) mg/dL POC Glucose 315 H (60-110) mg/dL Calcium (8.5-10.1) mg/dL Total Bilirubin (0.2-1.0) mg/dL AST (15-37) IU/L ALT (14-63) IU/L Alkaline Phosphatase (46-116) U/L Troponin I (0.000-0.056) ng/mL Total Protein (6.4-8.2) g/dL Albumin (3.4-5.0) g/dL Globulin (2.0-3.5) g/dL Albumin/Globulin Ratio (1.3-2.8) Lipase (73-393) U/L Ethyl Alcohol mg/dL Meds: Medications Generic Name Dose Route Start Last Admin Trade Name Freq PRN Reason Stop Dose Admin Sodium Chloride 1,000 mls @ 125 mls/hr 04/27/18 04:45 04/27/18 04:42 Normal Saline IV 125 mls/hr STAT ANTHONY Administration Discontinued Medications Generic Name Dose Route Start Last Admin Trade Name Freq PRN Reason Stop Dose Admin Sodium Chloride 1,000 mls @ 999 mls/hr 04/27/18 03:43 04/27/18 03:45 Normal Saline IV 04/27/18 04:43 999 mls/hr STAT ONE Administration Insulin Human Regular 10 unit 04/27/18 03:44 04/27/18 03:55 Novolin R IVPUSH 04/27/18 03:45 10 units ONETIME ONE Administration Protocol Insulin Human Regular 10 unit 04/27/18 03:45 04/27/18 03:55 Novolin R SUBCUT 04/27/18 03:46 10 unit NOW STA Administration Protocol Insulin Human Regular 10 unit 04/27/18 04:36 04/27/18 04:35 Novolin R IVPUSH 04/27/18 04:37 10 units ONETIME ONE Administration Protocol Insulin Human Regular 10 unit 04/27/18 04:37 04/27/18 04:40 Novolin R SUBCUT 04/27/18 04:38 10 unit NOW STA Administration Protocol Insulin Human Regular 10 unit 04/27/18 05:45 04/27/18 06:00 Novolin R IVPUSH 04/27/18 05:46 10 unit ONETIME ONE Administration Protocol Lorazepam 1 mg 04/27/18 04:17 04/27/18 04:31 Ativan IVPUSH 04/27/18 04:18 1 mg ONETIME ONE Administration Ondansetron HCl 8 mg 04/27/18 03:50 04/27/18 03:55 Zofran IVPUSH 04/27/18 03:51 8 mg ONETIME ONE Administration Ondansetron HCl Confirm 04/27/18 03:51 04/27/18 04:03 Zofran Administered 04/27/18 03:52 Not Given Dose 8 mg .ROUTE .STK-MED ONE Departure - Departure Time of Disposition: 06:15 Disposition: Refer to Observation Condition: Fair Clinical Impression: Hyperglycemia, Noncompliance with medication regimen - Discharge Information Referrals: PCP,None [Primary Care Provider] - - My Orders Last 24 Hours: My Active Orders 04/27/18 03:44 UA W/MICROSCOPIC [URIN] Stat 04/27/18 03:46 EKG Documentation Completion [RC] STAT Chest 1V Frontal [CR] Stat 04/27/18 04:45 Sodium Chloride 0.9% [Normal Saline] 1,000 ml IV STAT - Assessment/Plan Last 24 Hours: My Active Orders 04/27/18 03:44 UA W/MICROSCOPIC [URIN] Stat 04/27/18 03:46 EKG Documentation Completion [RC] STAT Chest 1V Frontal [CR] Stat 04/27/18 04:45 Sodium Chloride 0.9% [Normal Saline] 1,000 ml IV STAT
[2018-04-27] MEDS ORDERED: Ondansetron 4 MG/2 ML SDV IVPUSH ONE (03:50)
[2018-04-27] MEDS ORDERED: Ondansetron 4 MG/2 ML SDV ONE (03:51)
[2018-04-27] MEDS ORDERED: LORazepam 2 MG/ML SDV IVPUSH ONE (04:17)
[2018-04-27 04:30] LABS: CHLORIDE,CL 95 mmol/L (98-107); SODIUM,NA 130 mmol/L (136-145)
[2018-04-27] MEDS: Sodium Chloride 0.9% 1,000 ML IV SCH ×4 (04:42→20:25)
[2018-04-27] MEDS: Insulin Glargine,Human Rec. Analog 100 Units/ML 3 ML Pen SUBCUT SCH (10:11)
[2018-04-27] MEDS: Ondansetron 4 MG/2 ML SDV IVPUSH PRN ×2 (11:33→16:07)
[2018-04-27] MEDS: Insulin Aspart 100 Units/ML 3 ML Pen SUBCUT SCH ×2 (11:47→16:20)
[2018-04-27] MEDS ORDERED: Acetaminophen 325 MG Tab PO PRN (13:08)
[2018-04-27] MEDS ORDERED: Promethazine 25 MG/ML SDV IM PRN (13:08)
--- NOTE | 2018-04-27 13:14 | PCM.HP ---
H&P History of Present Illness - General Admit Problem/Dx: Admission Diagnosis/Problem Admission Diagnosis/Problem Hyperglycemia - History of Present Illness Initial Comments - Free Text/Narative: 53 yo female with pmh of anxiety/depression and uncontrolled type 2 DM who was discharged five days ago for hyperglycemia and dehydration. Patient reports since discharge she has not taking any medications including her insulin or checked her blood glucose. She reports increased thirst and urination. She has been drinking sweet tea due to he increased thirst. She reports a one day history of nausea and vomiting. She denies any abdominal pain. generalized Pain Score (Numeric/FACES): 5 - Related Data Allergies/Adverse Reactions: Allergies Allergy/AdvReac Type Severity Reaction Status Date / Time latex Allergy Rash Verified 04/27/18 04:06 Sulfa (Sulfonamide Allergy Airway Verified 04/27/18 04:06 Antibiotics) Tightness sulfur dioxide Allergy Airway Verified 04/27/18 04:06 Tightness Home Medications: Home Meds Insulin Aspart [NovoLOG] See Protocol SUBCUT ACBED #1 pen 04/22/18 [Rx] Insulin Glarg,Human.Rec.Analog [Lantus Solostar] 20 units SUBCUT BEDTIME #1 pen 04/22/18 [Rx] Pantoprazole [ProTONIX] 40 mg PO BIDAC #20 tab.cr 04/22/18 [Rx] QUEtiapine [SEROquel] 25 mg PO BEDTIME #30 tab 04/22/18 [Rx] Past Medical History - Past Health History Medical/Surgical History: Denies Medical/Surgical History HEENT History: Reports: Other (See Below) Other HEENT History: has top denture Cardiovascular History: Reports: Hypertension Other Cardiovascular History: murmur as an infant Respiratory History: Reports: Other (See Below) Other Respiratory History: chronic daily smoker Gastrointestinal History: Reports: Helicobacter Pylori, Other (See Below) Other Gastrointestinal History: gastroparesis Genitourinary History: Reports: None BUSINESS SUPPORT History: Reports: Musculoskeletal History: Reports: Back Pain, Chronic Neurological History: Reports: Migraines, Other (See Below) Other Neuro History: "Silent Migraines" Psychiatric History: Reports: Anxiety, Depression Endocrine/Metabolic History: Reports: Diabetes, Type II Other Endocrine/Metabolic History: Pt questions this Dx Hematologic History: Reports: Other (See Below) Other Hematologic History: States "bacterium in blood" Immunologic History: Reports: None Other Immunologic History: states was in the hospital in [place] last summer with blood infection "not sure what it was called" Oncologic (Cancer) History: Reports: Ovarian Dermatologic History: Reports: Eczema - Infectious Disease History Infectious Disease History: Reports: Chicken Pox - Past Surgical History Head Surgeries/Procedures: Reports: None GI Surgical History: Reports: None - History Comment History Comment: Son says she's been evaluated for these sxs in past but doesn' t recall where w/u was done (including CT of abd). No EGD ever done. The h pylori was dx'd by serologies. Social & Family History - Family History Family Medical History: Noncontributory Cardiac: Reports: Hypertension Other Cardiac Family History: Mother, Aunt Respiratory: Reports: COPD Other Respiratory Family Hisory: Uncle GI: Reports: None Neurological: Reports: Other (See Below) Other Neurological Family History: Stroke-Grandmother Endocrine/Metabolic: Reports: Diabetes, type II - Tobacco Use Smoking Status *Q: Current Every Day Smoker Years of Tobacco use: 30 Packs/Tins Daily: 0.5 Used Tobacco, but Quit: No Second Hand Smoke Exposure: Yes - Caffeine Use Caffeine Use: Reports: Coffee - Recreational Drug Use Recreational Drug Use: No - Living Situation & Occupation Living situation: Reports: Single Occupation: Unemployed H&P Review of Systems - Review of Systems: Review Of Systems: ROS reveals no pertinent complaints other than HPI. Exam - Vital Signs Vital Signs: Last Vital Signs Temp 36.4 C 04/27/18 12:00 Pulse 91 04/27/18 12:00 Resp 16 04/27/18 12:00 BP 139/85 04/27/18 12:00 Pulse Ox 99 04/27/18 12:00 Weight: 56.518 kg - Exam General: Alert, Oriented Neck: Supple Lungs: Clear to Auscultation, Normal Respiratory Effort Cardiovascular: Regular Rate, Regular Rhythm GI/Abdominal Exam: Normal Bowel Sounds, Soft, Non-Tender, No Distention Extremities: Non-Tender, No Pedal Edema Skin: Warm, Dry, Intact Neurological: No: Focal Deficit - Patient Data Lab Results Last 24 hrs: Laboratory Results - last 24 hr 04/27/18 04/27/18 04/27/18 Range/Units 03:45 03:45 04:35 WBC 8.67 (4.0-11.0) K/uL RBC 4.17 L (4.30-5.90) M/uL Hgb 12.4 (12.0-16.0) g/dL Hct 35.7 L (36.0-46.0) % MCV 85.6 (80.0-98.0) fL MCH 29.7 (27.0-32.0) pg MCHC 34.7 (31.0-37.0) g/dL RDW Std Deviation 38.8 (28.0-62.0) fl RDW Coeff of Kennedi 13 (11.0-15.0) % Plt Count 245 (150-400) K/uL MPV 13.70 H (7.40-12.00) fL Neut % (Auto) 74.8 (48.0-80.0) % Lymph % (Auto) 17.3 (16.0-40.0) % [place] % (Auto) 6.7 (0.0-15.0) % Eos % (Auto) 1.0 (0.0-7.0) % Baso % (Auto) 0.2 (0.0-1.5) % Neut # (Auto) 6.5 H (1.4-5.7) K/uL Lymph # (Auto) 1.5 (0.6-2.4) K/uL [place] # (Auto) 0.6 (0.0-0.8) K/uL Eos # (Auto) 0.1 (0.0-0.7) K/uL Baso # (Auto) 0.0 (0.0-0.1) K/uL Nucleated RBC % 0.0 /100WBC Nucleated RBCs # 0 K/uL ABG pH (7.35-7.45) ABG pCO2 (35-45) mmHG ABG pO2 (75-100) mmHG ABG HCO3 (22-26) mEq/L ABG Total CO2 ABG Base Excess (-2.0-2.0) Sodium 130 L (136-145) mmol/L Potassium 3.5 (3.5-5.1) mmol/L Chloride 95 L (98-107) mmol/L Carbon Dioxide 21.6 (21.0-32.0) mmol/L BUN 15 (7.0-18.0) mg/dL Creatinine 1.3 H (0.6-1.0) mg/dL Est Cr Clr Drug Dosing 45.83 mL/min Estimated GFR (MDRD) 43.2 ml/min Glucose 723 H* (74-106) mg/dL POC Glucose 444 H (60-110) mg/dL Calcium 9.0 (8.5-10.1) mg/dL Total Bilirubin 0.5 (0.2-1.0) mg/dL AST 29 (15-37) IU/L ALT 57 (14-63) IU/L Alkaline Phosphatase 129 H (46-116) U/L Troponin I < 0.050 (0.000-0.056) ng/mL Total Protein 6.5 (6.4-8.2) g/dL Albumin 3.2 L (3.4-5.0) g/dL Globulin 3.3 (2.0-3.5) g/dL Albumin/Globulin Ratio 1.0 L (1.3-2.8) Lipase 273 (73-393) U/L Ethyl Alcohol <3 mg/dL 04/27/18 04/27/18 04/27/18 Range/Units 05:43 05:52 09:53 WBC (4.0-11.0) K/uL RBC (4.30-5.90) M/uL Hgb (12.0-16.0) g/dL Hct (36.0-46.0) % MCV (80.0-98.0) fL MCH (27.0-32.0) pg MCHC (31.0-37.0) g/dL RDW Std Deviation (28.0-62.0) fl RDW Coeff of Kennedi (11.0-15.0) % Plt Count (150-400) K/uL MPV (7.40-12.00) fL Neut % (Auto) (48.0-80.0) % Lymph % (Auto) (16.0-40.0) % [place] % (Auto) (0.0-15.0) % Eos % (Auto) (0.0-7.0) % Baso % (Auto) (0.0-1.5) % Neut # (Auto) (1.4-5.7) K/uL Lymph # (Auto) (0.6-2.4) K/uL [place] # (Auto) (0.0-0.8) K/uL Eos # (Auto) (0.0-0.7) K/uL Baso # (Auto) (0.0-0.1) K/uL Nucleated RBC % /100WBC Nucleated RBCs # K/uL ABG pH 7.524 H (7.35-7.45) ABG pCO2 29 L (35-45) mmHG ABG pO2 102 H (75-100) mmHG ABG HCO3 24 (22-26) mEq/L ABG Total CO2 21.5 ABG Base Excess 2.0 (-2.0-2.0) Sodium (136-145) mmol/L Potassium (3.5-5.1) mmol/L Chloride (98-107) mmol/L Carbon Dioxide (21.0-32.0) mmol/L BUN (7.0-18.0) mg/dL Creatinine (0.6-1.0) mg/dL Est Cr Clr Drug Dosing mL/min Estimated GFR (MDRD) ml/min Glucose (74-106) mg/dL POC Glucose 315 H 131 H (60-110) mg/dL Calcium (8.5-10.1) mg/dL Total Bilirubin (0.2-1.0) mg/dL AST (15-37) IU/L ALT (14-63) IU/L Alkaline Phosphatase (46-116) U/L Troponin I (0.000-0.056) ng/mL Total Protein (6.4-8.2) g/dL Albumin (3.4-5.0) g/dL Globulin (2.0-3.5) g/dL Albumin/Globulin Ratio (1.3-2.8) Lipase (73-393) U/L Ethyl Alcohol mg/dL 04/27/ Range/Units 11:27 WBC (4.0-11.0) K/uL RBC (4.30-5.90) M/uL Hgb (12.0-16.0) g/dL Hct (36.0-46.0) % MCV (80.0-98.0) fL MCH (27.0-32.0) pg MCHC (31.0-37.0) g/dL RDW Std Deviation (28.0-62.0) fl RDW Coeff of Kennedi (11.0-15.0) % Plt Count (150-400) K/uL MPV (7.40-12.00) fL Neut % (Auto) (48.0-80.0) % Lymph % (Auto) (16.0-40.0) % Monroe % (Auto) (0.0-15.0) % Eos % (Auto) (0.0-7.0) % Baso % (Auto) (0.0-1.5) % Neut # (Auto) (1.4-5.7) K/uL Lymph # (Auto) (0.6-2.4) K/uL [place] # (Auto) (0.0-0.8) K/uL Eos # (Auto) (0.0-0.7) K/uL Baso # (Auto) (0.0-0.1) K/uL Nucleated RBC % /100WBC Nucleated RBCs # K/uL ABG pH (7.35-7.45) ABG pCO2 (35-45) mmHG ABG pO2 (75-100) mmHG ABG HCO3 (22-26) mEq/L ABG Total CO2 ABG Base Excess (-2.0-2.0) Sodium (136-145) mmol/L Potassium (3.5-5.1) mmol/L Chloride (98-107) mmol/L Carbon Dioxide (21.0-32.0) mmol/L BUN (7.0-18.0) mg/dL Creatinine (0.6-1.0) mg/dL Est Cr Clr Drug Dosing mL/min Estimated GFR (MDRD) ml/min Glucose (74-106) mg/dL POC Glucose 172 H (60-110) mg/dL Calcium (8.5-10.1) mg/dL Total Bilirubin (0.2-1.0) mg/dL AST (15-37) IU/L ALT (14-63) IU/L Alkaline Phosphatase (46-116) U/L Troponin I (0.000-0.056) ng/mL Total Protein (6.4-8.2) g/dL Albumin (3.4-5.0) g/dL Globulin (2.0-3.5) g/dL Albumin/Globulin Ratio (1.3-2.8) Lipase (73-393) U/L Ethyl Alcohol mg/dL Result Diagrams: 04/27/18 03:45 04/27/18 03:45 Problem List Initiated/Reviewed/Updated: Yes Orders Last 24hrs: Active Orders 24 hr Category Date Time Status Admission Status [Patient Status] [ADT] Stat ADT 04/27/18 06:16 Active Blood Glucose Check, Bedside [RC] TIDMEALS Care 04/27/18 13:08 Active Oxygen Therapy [RC] PRN Care 04/27/18 13:08 Active Up ad Amie [RC] ASDIRECTED Care 04/27/18 13:08 Active VTE/DVT Education [RC] PER UNIT ROUTINE Care 04/27/18 13:08 Active Vital Signs [RC] Q4H Care 04/27/18 13:08 Active Consult to Diabetic Nurse Specialist [CONS] Routine Cons 04/27/18 13:08 Active [employer] Diet [DIET] Diet 04/27/18 Lunch Active Chest 1V Frontal [CR] Stat Exams 04/27/18 03:46 Taken CBC WITH AUTO DIFF [HEME] AM Lab 04/28/18 05:11 Ordered COMPREHENSIVE METABOLIC PN,CMP [CHEM] AM Lab 04/28/18 05:11 Ordered UA W/MICROSCOPIC [URIN] Stat Lab 04/27/18 03:44 Ordered Acetaminophen [Tylenol] Med 04/27/18 13:08 Ordered 650 mg PO Q4H PRN Insulin Aspart [NovoLOG] Med 04/27/18 11:30 Active See Protocol SUBCUT TIDAC Insulin Glarg,Human.Rec.Analog [LantUS Solostar] Med 04/27/18 09:15 Active 20 units SUBCUT DAILY Ondansetron [Zofran] Med 04/27/18 10:25 Active 4 mg IVPUSH Q4H PRN Pantoprazole [ProTONIX IV] Med 04/27/18 13:15 Ordered 40 mg IVPUSH Q24H Promethazine [Phenergan] Med 04/27/18 13:08 Ordered 25 mg IM Q6H PRN QUEtiapine [SEROquel] Med 04/27/18 21:00 Ordered 25 mg PO BEDTIME Sodium Chloride 0.9% [Normal Saline] 1,000 ml Med 04/27/18 04:45 Active IV STAT Sequential Compression Device [OM.PC] Per Unit Routine Oth 04/27/18 13:08 Ordered Resuscitation Status Routine Resus Stat 04/27/18 13:08 Ordered Medication Orders Acetaminophen (Tylenol) 650 mg PO Q4H PRN PRN Reason: Pain (Mild 1-3)/fever Sodium Chloride (Normal Saline) 1,000 mls @ 125 mls/hr IV STAT ANTHONY Last Admin: 04/27/18 12:20 Dose: 125 mls/hr Infusion: 04/27/18 12:20 Dose: 125 mls/hr Admin: 04/27/18 08:28 Dose: 125 mls/hr Infusion: 04/27/18 08:28 Dose: 125 mls/hr Admin: 04/27/18 04:42 Dose: 125 mls/hr Insulin Aspart (Novolog) 0 unit SUBCUT TIDAC [facility]; Protocol Last Admin: 04/27/18 11:47 Dose: Insulin Glargine (Lantus Solostar) 20 units SUBCUT DAILY [facility] Last Admin: 04/27/18 10:11 Dose: 20 units Ondansetron HCl (Zofran) 4 mg IVPUSH Q4H PRN PRN Reason: Nausea/Vomiting Last Admin: 04/27/18 11:33 Dose: 4 mg Pantoprazole Sodium (Protonix Iv) 40 mg IVPUSH Q24H [facility] Promethazine HCl (Phenergan) 25 mg IM Q6H PRN PRN Reason: Nausea Quetiapine Fumarate (Seroquel) 25 mg PO BEDTIME [facility] Assessment/Plan Comment:: 53 yo female who presents with nausea and vomiting and hyperglycemia due to medication noncompliance. We will hydrate with IV fluids, and give antiemetics. Will resume subcutatenous insulin.
[2018-04-27] MEDS ORDERED: Pantoprazole 40 MG Vial IVPUSH SCH (13:15)
[2018-04-27] MEDS ORDERED: QUEtiapine 25 MG Tab PO SCH (21:00)
[2018-04-28] MEDS: Sodium Chloride 0.9% 1,000 ML IV SCH (04:44)
[2018-04-28 06:21] LABS: CHLORIDE,CL 106 mmol/L (98-107); SODIUM,NA 142 mmol/L (136-145)
[2018-04-28] MEDS: Insulin Aspart 100 Units/ML 3 ML Pen SUBCUT SCH (07:36)
[2018-04-28 07:58] VITALS: BP 124/74
--- NOTE | 2018-04-28 08:19 | PCM.DCSUM1 ---
Discharge Summary - Hospital Course Brief History: 53 yo female with pmh of anxiety/depression and uncontrolled type 2 DM who was discharged five days ago for hyperglycemia and dehydration. Patient reports since discharge she has not taking any medications including her insulin or checked her blood glucose. She reports increased thirst and urination. She has been drinking sweet tea due to he increased thirst. She reports a one day history of nausea and vomiting. She denies any abdominal pain. - Discharge Data Discharge Date: 04/28/18 Discharge Disposition: Home, Self-Care 01 Condition: Good - Patient Summary/Data Consults: Consultations 04/27/18 13:08 Consult to Diabetic Nurse Specialist [CONS] Routine - Patient Instructions Diet: Diabetic Diet Activity: As Tolerated Driving: Do Not Drive Showering/Bathing: May Shower Notify Provider of: Fever, Increased Pain, Swelling and Redness, Drainage, Nausea and/or Vomiting - Discharge Plan Home Medications: Home Meds Insulin Aspart [NovoLOG] See Protocol SUBCUT ACBED #1 pen 04/22/18 [Rx] Insulin Glarg,Human.Rec.Analog [Lantus Solostar] 20 units SUBCUT BEDTIME #1 pen 04/22/18 [Rx] Pantoprazole [ProTONIX] 40 mg PO BIDAC #20 tab.cr 04/22/18 [Rx] QUEtiapine [SEROquel] 25 mg PO BEDTIME #30 tab 04/22/18 [Rx] Patient Handouts: Hyperglycemia, [id number] Referrals: Anel Kraft RN [Registered Nurse] - 04/30/18 3:00 pm Leander Nielsen MD [Resident] - 04/30/18 2:00 pm Inna Curtis MD [Physician] - 05/01/18 3:00 pm - Discharge Summary/Plan Comment DC Time >30 min.: No Discharge Summary/Plan Comment: Discharge Diagnoses: Dehydration Hyperglycemia Non compliance with medication regimen. Uncontrolled Type 2 Dm Anxiety Depression H pylori infection Alisha was admitted secondary to dehydration and hyperglycemia. She was treated with IVFs and insulin. Today she is feeling much better and is requesting discharge. She reports she had not picked up previously sent insulins and medications for H pylori last week on discharge. But she reports she will pick them up now. She "hates feeling ill all the time." Encouraged her to take the insulin and this will likely help with these feelings. Educated to limit sugary drinks such as sweet tea and drink more water. 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 She was encouraged to continue taking medications for H pylori, which she currently denies any abdominal pain or heartburn. She has follow up appointments previously arranged and she was encouraged to continue with these follow ups. She is to return to ED or clinic if concerns should arise. - General Info Date of Service: 04/28/18 Admission Dx/Problem (Free Text: Admission Diagnosis/Problem Admission Diagnosis/Problem Hyperglycemia Subjective Update: Alert and oriented today. No concerns. No pain, dyspnea or anxiety. Very pleasant and is eager to be discharged home. Functional Status: Reports: Pain Controlled, Tolerating Diet, Ambulating, Urinating - Review of Systems General: Reports: No Symptoms. Denies: Fever, Weakness, Fatigue HEENT: Reports: No Symptoms. Denies: Headaches, Rhinitis Pulmonary: Reports: No Symptoms. Denies: Shortness of Breath, Cough, Sputum, Hemoptysis Cardiovascular: Reports: No Symptoms. Denies: Chest Pain, Orthopnea, Edema Gastrointestinal: Reports: No Symptoms. Denies: Abdominal Pain, Nausea, Vomiting Genitourinary: Reports: No Symptoms. Denies: Dysuria, Frequency, Burning Musculoskeletal: Reports: No Symptoms Skin: Reports: No Symptoms Neurological: Reports: No Symptoms Psychiatric: Reports: No Symptoms - Patient Data Vitals - Most Recent: Last Vital Signs Temp 98 F 04/28/18 07:56 Pulse 88 04/28/18 07:56 Resp 18 04/28/18 07:56 BP 124/74 04/28/18 07:56 Pulse Ox 98 04/28/18 07:56 Weight - Most Recent: 56.518 kg I&O - Last 24 hours: Intake & Output 04/27/18 04/28/18 04/28/18 22:59 06:59 14:59 Intake Total 2043 1673 Output Total 430 200 Balance 1613 1473 Lab Results - Last 24 hrs: Laboratory Results - last 24 hr 04/27/18 04/27/18 04/27/18 Range/Units 09:53 11:27 13:45 WBC (4.0-11.0) K/uL RBC (4.30-5.90) M/uL Hgb (12.0-16.0) g/dL Hct (36.0-46.0) % MCV (80.0-98.0) fL MCH (27.0-32.0) pg MCHC (31.0-37.0) g/dL RDW Std Deviation (28.0-62.0) fl RDW Coeff of [place] (11.0-15.0) % Plt Count (150-400) K/uL MPV (7.40-12.00) fL Neut % (Auto) (48.0-80.0) % Lymph % (Auto) (16.0-40.0) % [place] % (Auto) (0.0-15.0) % Eos % (Auto) (0.0-7.0) % Baso % (Auto) (0.0-1.5) % Neut # (Auto) (1.4-5.7) K/uL Lymph # (Auto) (0.6-2.4) K/uL [place] # (Auto) (0.0-0.8) K/uL Eos # (Auto) (0.0-0.7) K/uL Baso # (Auto) (0.0-0.1) K/uL Nucleated RBC % /100WBC Nucleated RBCs # K/uL Sodium (136-145) mmol/L Potassium (3.5-5.1) mmol/L Chloride (98-107) mmol/L Carbon Dioxide (21.0-32.0) mmol/L BUN (7.0-18.0) mg/dL Creatinine (0.6-1.0) mg/dL Est Cr Clr Drug Dosing mL/min Estimated GFR (MDRD) ml/min Glucose (74-106) mg/dL POC Glucose 131 H 172 H (60-110) mg/dL Calcium (8.5-10.1) mg/dL Magnesium (1.5-2.0) mg/dL Total Bilirubin (0.2-1.0) mg/dL AST (15-37) IU/L ALT (14-63) IU/L Alkaline Phosphatase (46-116) U/L Total Protein (6.4-8.2) g/dL Albumin (3.4-5.0) g/dL Globulin (2.0-3.5) g/dL Albumin/Globulin Ratio (1.3-2.8) Urine Color YELLOW Urine Appearance CLEAR Urine pH 8.0 (5.0-8.0) Ur Specific [place] 1.010 (1.001-1.035) Urine Protein 30 (NEGATIVE) mg/dL Urine Glucose (UA) >=1000 (NEGATIVE) mg/dL Urine Ketones 15 H (NEGATIVE) mg/dL Urine Occult Blood NEGATIVE (NEGATIVE) Urine Nitrite NEGATIVE (NEGATIVE) Urine Bilirubin NEGATIVE (NEGATIVE) Urine Urobilinogen 0.2 (<2.0) EU/dL Ur Leukocyte Esterase TRACE (NEGATIVE) Urine RBC 0-2 (0-2/HPF) Urine WBC 1-3 (0-5/HPF) Ur Epithelial Cells FEW (NONE-FEW) Urine Bacteria FEW (NEGATIVE) 04/27/18 04/28/18 04/28/18 Range/Units 16:15 05:50 05:50 WBC 9.53 (4.0-11.0) K/uL RBC 3.75 L (4.30-5.90) M/uL Hgb 11.0 L (12.0-16.0) g/dL Hct 32.9 L (36.0-46.0) % MCV 87.7 (80.0-98.0) fL MCH 29.3 (27.0-32.0) pg MCHC 33.4 (31.0-37.0) g/dL RDW Std Deviation 41.2 (28.0-62.0) fl RDW Coeff of [place] 13 (11.0-15.0) % Plt Count 227 (150-400) K/uL MPV 12.50 H (7.40-12.00) fL Neut % (Auto) 64.1 (48.0-80.0) % Lymph % (Auto) 28.3 (16.0-40.0) % [place] % (Auto) 5.9 (0.0-15.0) % Eos % (Auto) 1.5 (0.0-7.0) % Baso % (Auto) 0.2 (0.0-1.5) % Neut # (Auto) 6.1 H (1.4-5.7) K/uL Lymph # (Auto) 2.7 H (0.6-2.4) K/uL [place] # (Auto) 0.6 (0.0-0.8) K/uL Eos # (Auto) 0.1 (0.0-0.7) K/uL Baso # (Auto) 0.0 (0.0-0.1) K/uL Nucleated RBC % 0.0 /100WBC Nucleated RBCs # 0 K/uL Sodium 142 (136-145) mmol/L Potassium 3.2 L (3.5-5.1) mmol/L Chloride 106 (98-107) mmol/L Carbon Dioxide 29.8 (21.0-32.0) mmol/L BUN 12 (7.0-18.0) mg/dL Creatinine 0.9 (0.6-1.0) mg/dL Est Cr Clr Drug Dosing 53.12 mL/min Estimated GFR (MDRD) > 60.0 ml/min Glucose 177 H (74-106) mg/dL POC Glucose 172 H (60-110) mg/dL Calcium 7.7 L (8.5-10.1) mg/dL Magnesium (1.5-2.0) mg/dL Total Bilirubin 0.3 (0.2-1.0) mg/dL AST 24 (15-37) IU/L ALT 39 (14-63) IU/L Alkaline Phosphatase 103 (46-116) U/L Total Protein 5.2 L (6.4-8.2) g/dL Albumin 2.4 L (3.4-5.0) g/dL Globulin 2.8 (2.0-3.5) g/dL Albumin/Globulin Ratio 0.9 L (1.3-2.8) Urine Color Urine Appearance Urine pH (5.0-8.0) Ur Specific [place] (1.001-1.035) Urine Protein (NEGATIVE) mg/dL Urine Glucose (UA) (NEGATIVE) mg/dL Urine Ketones (NEGATIVE) mg/dL Urine Occult Blood (NEGATIVE) Urine Nitrite (NEGATIVE) Urine Bilirubin (NEGATIVE) Urine Urobilinogen (<2.0) EU/dL Ur Leukocyte Esterase (NEGATIVE) Urine RBC (0-2/HPF) Urine WBC (0-5/HPF) Ur Epithelial Cells (NONE-FEW) Urine Bacteria (NEGATIVE) 04/28/18 04/28/18 Range/Units 05:55 06:32 WBC (4.0-11.0) K/uL RBC (4.30-5.90) M/uL Hgb (12.0-16.0) g/dL Hct (36.0-46.0) % MCV (80.0-98.0) fL MCH (27.0-32.0) pg MCHC (31.0-37.0) g/dL RDW Std Deviation (28.0-62.0) fl RDW Coeff of [place] (11.0-15.0) % Plt Count (150-400) K/uL MPV (7.40-12.00) fL Neut % (Auto) (48.0-80.0) % Lymph % (Auto) (16.0-40.0) % [place] % (Auto) (0.0-15.0) % Eos % (Auto) (0.0-7.0) % Baso % (Auto) (0.0-1.5) % Neut # (Auto) (1.4-5.7) K/uL Lymph # (Auto) (0.6-2.4) K/uL [place] # (Auto) (0.0-0.8) K/uL Eos # (Auto) (0.0-0.7) K/uL Baso # (Auto) (0.0-0.1) K/uL Nucleated RBC % /100WBC Nucleated RBCs # K/uL Sodium (136-145) mmol/L Potassium (3.5-5.1) mmol/L Chloride (98-107) mmol/L Carbon Dioxide (21.0-32.0) mmol/L BUN (7.0-18.0) mg/dL Creatinine (0.6-1.0) mg/dL Est Cr Clr Drug Dosing mL/min Estimated GFR (MDRD) ml/min Glucose (74-106) mg/dL POC Glucose 205 H (60-110) mg/dL Calcium (8.5-10.1) mg/dL Magnesium 1.5 (1.5-2.0) mg/dL Total Bilirubin (0.2-1.0) mg/dL AST (15-37) IU/L ALT (14-63) IU/L Alkaline Phosphatase (46-116) U/L Total Protein (6.4-8.2) g/dL Albumin (3.4-5.0) g/dL Globulin (2.0-3.5) g/dL Albumin/Globulin Ratio (1.3-2.8) Urine Color Urine Appearance Urine pH (5.0-8.0) Ur Specific [place] (1.001-1.035) Urine Protein (NEGATIVE) mg/dL Urine Glucose (UA) (NEGATIVE) mg/dL Urine Ketones (NEGATIVE) mg/dL Urine Occult Blood (NEGATIVE) Urine Nitrite (NEGATIVE) Urine Bilirubin (NEGATIVE) Urine Urobilinogen (<2.0) EU/dL Ur Leukocyte Esterase (NEGATIVE) Urine RBC (0-2/HPF) Urine WBC (0-5/HPF) Ur Epithelial Cells (NONE-FEW) Urine Bacteria (NEGATIVE) Med Orders - Current: Current Medications Acetaminophen (Tylenol) 650 mg PO Q4H PRN PRN Reason: Pain (Mild 1-3)/fever Sodium Chloride (Normal Saline) 1,000 mls @ 125 mls/hr IV STAT [facility] Last Admin: 04/28/18 04:44 Dose: 125 mls/hr Insulin Aspart (Novolog) 0 unit SUBCUT TIDAC [facility]; Protocol Last Admin: 04/28/18 07:36 Dose: 4 units Insulin Glargine (Lantus Solostar) 20 units SUBCUT DAILY [facility] Last Admin: 04/27/18 10:11 Dose: 20 units Ondansetron HCl (Zofran) 4 mg IVPUSH Q4H PRN PRN Reason: Nausea/Vomiting Last Admin: 04/27/18 16:07 Dose: 4 mg Pantoprazole Sodium (Protonix Iv) 40 mg IVPUSH Q24H [facility] Last Admin: 04/27/18 13:29 Dose: 40 mg Potassium Chloride (Klor-Con M20) 40 meq PO ONETIME ONE Stop: 04/28/18 08:31 Promethazine HCl (Phenergan) 25 mg IM Q6H PRN PRN Reason: Nausea Quetiapine Fumarate (Seroquel) 25 mg PO BEDTIME [facility] Last Admin: 04/27/18 20:26 Dose: 25 mg Discontinued Medications Sodium Chloride (Normal Saline) 1,000 mls @ 999 mls/hr IV STAT ONE Stop: 04/27/18 04:43 Last Admin: 04/27/18 03:45 Dose: 999 mls/hr Insulin Human Regular (Novolin R) 10 unit IVPUSH ONETIME ONE; Protocol Stop: 04/27/18 03:45 Last Admin: 04/27/18 03:55 Dose: 10 units Insulin Human Regular (Novolin R) 10 unit SUBCUT NOW STA; Protocol Stop: 04/27/18 03:46 Last Admin: 04/27/18 03:55 Dose: 10 unit Insulin Human Regular (Novolin R) 10 unit IVPUSH ONETIME ONE; Protocol Stop: 04/27/18 04:37 Last Admin: 04/27/18 04:35 Dose: 10 units Insulin Human Regular (Novolin R) 10 unit SUBCUT NOW STA; Protocol Stop: 04/27/18 04:38 Last Admin: 04/27/18 04:40 Dose: 10 unit Insulin Human Regular (Novolin R) 10 unit IVPUSH ONETIME ONE; Protocol Stop: 04/27/18 05:46 Last Admin: 04/27/18 06:00 Dose: 10 unit Lorazepam (Ativan) 1 mg IVPUSH ONETIME ONE Stop: 04/27/18 04:18 Last Admin: 04/27/18 04:31 Dose: 1 mg Ondansetron HCl (Zofran) 8 mg IVPUSH ONETIME ONE Stop: 04/27/18 03:51 Last Admin: 04/27/18 03:55 Dose: 8 mg Ondansetron HCl (Zofran) Confirm Administered Dose 8 mg .ROUTE .STK-MED ONE Stop: 04/27/18 03:52 Last Admin: 04/27/18 04:03 Dose: Not Given - Exam General: Reports: Alert, Oriented, Cooperative, No Acute Distress Neck: Reports: Supple Lungs: Reports: Clear to Auscultation, Normal Respiratory Effort Cardiovascular: Reports: Regular Rate, Regular Rhythm GI/Abdominal Exam: Normal Bowel Sounds, Soft, Non-Tender, No Organomegaly, No Distention, No Abnormal Bruit, No Mass, Pelvis Stable Extremities: Normal Inspection, Normal Range of Motion, Non-Tender, No Pedal Edema, Normal Capillary Refill Neurological: Reports: No New Focal Deficit Psy/Mental Status: Reports: Alert, Normal Affect, Normal Mood
[2018-04-28] MEDS ORDERED: Potassium Chloride 20 MEQ Tab.ER PO ONE (08:30)
[2018-04-28] MEDS: Insulin Glargine,Human Rec. Analog 100 Units/ML 3 ML Pen SUBCUT SCH (08:41)
--- NOTE | 2018-04-29 12:59 | CR ---
EXAM DATE: 04/27/18 PATIENT'S AGE: 53 Patient: MITCHELL MCCRAY Facility: [place], [place] Site . Site : [id number] Study: XRay Chest [id number]/[id number] 4:19:36 AM Ordering Physician: Leti Trivedi Final Report: INDICATION: Chest pain, shortness of breath. TECHNIQUE: Chest radiograph 1 view COMPARISON: 04/18/2018. FINDINGS: Cardiovascular and mediastinum: The heart silhouette is normal in size and morphology. The mediastinum is normal in appearance. Lungs and pleural spaces: Both lungs are unremarkable in appearance. No sign of pleural effusion seen. No pneumothorax is identified. Bones and soft tissues: No significant findings. IMPRESSION: 1. No acute cardiopulmonary disease is seen. Dictated by Misbah Grey MD @ 04/27/2018 5:08:45 AM Dictated by: Misbah Grey MD @ 04/27/2018 05:08:52 (Electronic Signature) Report Signed by Proxy. COLETTE
== END 2018-04-28 10:10 | disposition home or self-care (01) ==
LOC: MW.ED 03:38 → MW.MS 06:16
PROVIDERS: ADMIT Internal Medicine; ATTEND Internal Medicine
DX: E11.65 Type 2 diabetes mellitus with hyperglycemia (principal); F41.9 Anxiety disorder, unspecified; F32.9 Major depressive disorder, single episode, unspecified; A04.8 Other specified bacterial intestinal infections; I10 Essential (primary) hypertension; E11.43 Type 2 diabetes mellitus with diabetic autonomic (poly)neuropathy; K31.84 Gastroparesis; F17.210 Nicotine dependence, cigarettes, uncomplicated; Z79.4 Long term (current) use of insulin; Z91.14 Patient's other noncompliance with medication regimen; Z91.040 Latex allergy status; Z88.8 Allergy status to other drugs, medicaments and biological substances; Z88.2 Allergy status to sulfonamides
CPT/HCPCS: 36415; 36600; 71045; 80053; 81001; 82803; 82962; 83690; 83735; 84484; 85025; 93005; 96361; 96374; 96375; 96376; 99285; A9270; C9113; G0378; G0480; J1815; J2060; J2405; J7040

== ENCOUNTER 2018-06-08 17:09 | Emergency (ER) | payer MEDICAID ==
[2018-06-08] MEDS ORDERED: Pantoprazole 40 MG Vial IVPUSH ONE (17:28)
[2018-06-08] MEDS ORDERED: Sodium Chloride 0.9% 1,000 ML IV ONE (17:28)
[2018-06-08] MEDS ORDERED: Sodium Chloride 0.9% 2.5 ML Syringe FLUSH PRN (17:28)
[2018-06-08] MEDS ORDERED: LORazepam 2 MG/ML SDV IVPUSH ONE (17:28)
[2018-06-08] MEDS ORDERED: Sodium Chloride 0.9% 10 ML Syringe FLUSH PRN (17:28)
[2018-06-08] MEDS ORDERED: Ondansetron 4 MG/2 ML SDV IVPUSH ONE (17:28)
[2018-06-08] MEDS ORDERED: Morphine 2 MG/ML Syringe IVPUSH ONE (17:29)
--- NOTE | 2018-06-08 17:33 | EDM.PDOC ---
<Susan Leija - Last Filed: 06/08/18 18:31> ED HPI GENERAL MEDICAL PROBLEM - General Chief Complaint: Abdominal Pain Stated Complaint: ABDOMINAL PAIN/ANXIETY/VOMITING Time Seen by Provider: 06/08/18 17:18 - History of Present Illness INITIAL COMMENTS - FREE TEXT/NARRATIVE: HISTORY AND PHYSICAL: History of present illness: The patient is a 53-year-old female with a history of anxiety depression poorly controlled type 2 diabetes peptic ulcer disease and H. pylori who presents with complaints of diffuse upper abdominal pain that started a day or so ago and subsequently started her to have vomiting times several times today and now she has discomfort and burning throughout her chest after vomiting. She has no shortness of breath and chest pain per se and the abdominal pain started first and then the vomiting and then the other complaints. She does have a history of 2 admissions to our hospital in April for poorly controlled diabetes and abdominal issues and at that time was found to have right hydronephrosis and hydroureter and was evaluated but does not appear to a followed up with our urologist. She says that her urine is very dark but there is no pain with urination or hematuria and she has no flank pain. The patient had ovarian cancer when she was younger and had removed and denies . She has no other abdominal surgical procedures that she admits to. Patient says she feels very anxious but she did not take any of her anxiety meds prior to coming here. She says that her blood sugars have been better controlled and she has followed up with the critical care educator. She seems very stressed about discomfort and her lack of ability to identify what the causes she is thirsty and says she has been trying to push fluids but cannot keep it down. Her symptoms that she is describing to me today appear to have started sometime yesterday and have progressed throughout today. The patient says she has felt hot at home but has not taken her temperature. Review of systems: As per history of present illness and below otherwise all systems reviewed and negative. Past medical history: As per history of present illness and as reviewed below otherwise noncontributory. Surgical history: As per history of present illness and as reviewed below otherwise noncontributory. Social history: No reported history of drug or alcohol abuse. Family history: As per history of present illness and as reviewed below otherwise noncontributory. Physical exam: General: Well-developed well-nourished thin female who is very anxious on my evaluation and finds it difficult to sit still during the examination interview. She is fidgety but she is nontoxic and has no ketones on her breath. HEENT: Atraumatic, normocephalic, pupils reactive, negative for conjunctival pallor or scleral icterus, mucous membranes tacky, throat clear, neck supple, nontender, trachea midline. Lungs: Clear to auscultation, breath sounds equal bilaterally, chest nontender. Heart: S1S2, regular rate and rhythm no overt murmurs Abdomen: Soft, nondistended, L sounds are hypoactive in the abdomen is very scaphoid there is no tympany on percussion and on palpation there is minimal epigastric tenderness but otherwise no rebound guarding or tenderness. Negative for masses or hepatosplenomegaly. Negative for costovertebral tenderness. Pelvis: Stable nontender. Genitourinary: Deferred. Rectal: Deferred. Extremities: Atraumatic, negative for cords or calf pain. Neurovascular unremarkable. Neuro: Awake, alert, oriented. Cranial nerves II through XII unremarkable. Cerebellum unremarkable. Motor and sensory unremarkable throughout. Exam nonfocal. Diagnostics: EKG CBC CMP amylase lipase H. pylori UA CT scan of the abdomen and pelvis Therapeutics: IV, IV fluids, Zofran, Protonix, Ativan, morphine Patient tells nursing that she is feeling better and the pain is almost gone but she was nauseated and had one episode of vomiting but declines more Zofran as it "makes her feel funny". She also feels less anxious. All labs have been reviewed and we are currently awaiting a UA and CT scan of the abdomen and pelvis. Impression: Upper abdominal pain with vomiting, type 2 diabetes with history of poor control stable, anxiety reaction with history of same improved Definitive disposition and diagnosis as appropriate pending reevaluation and review of above. abd pain Pain Score (Numeric/FACES): 3 - Related Data Allergies Allergy/AdvReac Type Severity Reaction Status Date / Time latex Allergy Rash Verified 04/27/18 04:06 Sulfa (Sulfonamide Allergy Airway Verified 04/27/18 04:06 Antibiotics) Tightness sulfur dioxide Allergy Airway Verified 04/27/18 04:06 Tightness Home Meds: Home Meds Insulin Aspart [NovoLOG] See Protocol SUBCUT ACBED #1 pen 04/22/18 [Rx] Insulin Glarg,Human.Rec.Analog [Lantus Solostar] 20 units SUBCUT BEDTIME #1 pen 04/22/18 [Rx] Pantoprazole [ProTONIX] 40 mg PO BIDAC #20 tab.cr 04/22/18 [Rx] QUEtiapine [SEROquel] 25 mg PO BEDTIME #30 tab 04/22/18 [Rx] Past Medical History - Past Health History Medical/Surgical History: Denies Medical/Surgical History HEENT History: Reports: Other (See Below) Other HEENT History: has top denture Cardiovascular History: Reports: Hypertension Other Cardiovascular History: murmur as an Respiratory History: Reports: Other (See Below) Other Respiratory History: chronic daily smoker Gastrointestinal History: Reports: Helicobacter Pylori, Other (See Below) Other Gastrointestinal History: gastroparesis Genitourinary History: Reports: None 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: Musculoskeletal History: Reports: Back Pain, Chronic Neurological History: Reports: Migraines, Other (See Below) Other Neuro History: "Silent Migraines" Psychiatric History: Reports: Anxiety, Depression Endocrine/Metabolic History: Reports: Diabetes, Type II Other Endocrine/Metabolic History: Pt questions this Dx Hematologic History: Reports: Other (See Below) Other Hematologic History: States "bacterium in blood" Immunologic History: Reports: None Other Immunologic History: states was in the hospital in [place] last summer with blood infection "not sure what it was called" Oncologic (Cancer) History: Reports: Ovarian Dermatologic History: Reports: Eczema - Infectious Disease History Infectious Disease History: Reports: Chicken Pox - Past Surgical History Head Surgeries/Procedures: Reports: None GI Surgical History: Reports: None - History Comment History Comment: Son says she's been evaluated for these sxs in past but doesn' t recall where w/u was done (including CT of abd). No EGD ever done. The h pylori was dx'd by serologies. Social & Family History - Family History Family Medical History: Noncontributory Cardiac: Reports: Hypertension Other Cardiac Family History: Mother, Aunt Respiratory: Reports: COPD Other Respiratory Family Hisory: Uncle GI: Reports: None Neurological: Reports: Other (See Below) Other Neurological Family History: Stroke-Grandmother Endocrine/Metabolic: Reports: Diabetes, type II - Caffeine Use Caffeine Use: Reports: Coffee - Living Situation & Occupation Living situation: Reports: Single Occupation: Unemployed ED ROS GENERAL - Review of Systems Review Of Systems: ROS reveals no pertinent complaints other than HPI. ED EXAM, GENERAL - Physical Exam Exam: See Below (see dictation) Course - Vital Signs Last Recorded V/S: Last Vital Signs Temp 99.0 F 06/08/18 19:14 Pulse 88 06/08/18 19:14 Resp 16 06/08/18 19:14 BP 172/88 H 06/08/18 19:14 Pulse Ox 97 06/08/18 19:14 - Orders/Labs/Meds Orders: Active Orders 24 hr Category Date Time Status EKG Documentation Completion [RC] STAT Care 06/08/18 17:27 Active Abdomen Pelvis w Cont [CT] Stat Exams 06/08/18 17:28 Taken CULTURE URINE [RM] Stat Lab 06/08/18 19:18 Ordered UA W/MICROSCOPIC [URIN] Stat Lab 06/08/18 19:21 Ordered Sodium Chloride 0.9% [Saline Flush] Med 06/08/18 17:28 Active 10 ml FLUSH ASDIRECTED PRN Sodium Chloride 0.9% [Saline Flush] Med 06/08/18 17:28 Active 2.5 ml FLUSH ASDIRECTED PRN Saline Lock Insert [OM.PC] Stat Oth 06/08/18 17:27 Ordered Medication Orders Sodium Chloride (Saline Flush) 10 ml FLUSH ASDIRECTED PRN PRN Reason: Keep Vein Open Sodium Chloride (Saline Flush) 2.5 ml FLUSH ASDIRECTED PRN PRN Reason: Keep Vein Open Labs: Laboratory Tests 06/08/18 06/08/18 06/08/18 Range/Units 17:44 17:44 17:44 WBC 8.20 (4.0-11.0) K/uL RBC 3.97 L (4.30-5.90) M/uL Hgb 11.7 L (12.0-16.0) g/dL Hct 34.4 L (36.0-46.0) % MCV 86.6 (80.0-98.0) fL MCH 29.5 (27.0-32.0) pg MCHC 34.0 (31.0-37.0) g/dL RDW Std Deviation 43.4 (28.0-62.0) fl RDW Coeff of Kennedi 14 (11.0-15.0) % Plt Count 224 (150-400) K/uL MPV 11.90 (7.40-12.00) fL Neut % (Auto) 70.4 (48.0-80.0) % Lymph % (Auto) 20.9 (16.0-40.0) % [place] % (Auto) 6.1 (0.0-15.0) % Eos % (Auto) 2.2 (0.0-7.0) % Baso % (Auto) 0.4 (0.0-1.5) % Neut # (Auto) 5.8 H (1.4-5.7) K/uL Lymph # (Auto) 1.7 (0.6-2.4) K/uL [place] # (Auto) 0.5 (0.0-0.8) K/uL Eos # (Auto) 0.2 (0.0-0.7) K/uL Baso # (Auto) 0.0 (0.0-0.1) K/uL Nucleated RBC % 0.0 /100WBC Nucleated RBCs # 0 K/uL Sodium 139 (136-145) mmol/L Potassium 3.9 (3.5-5.1) mmol/L Chloride 103 (98-107) mmol/L Carbon Dioxide 26.0 (21.0-32.0) mmol/L BUN 21 H (7.0-18.0) mg/dL Creatinine 1.1 H (0.6-1.0) mg/dL Est Cr Clr Drug Dosing TNP Estimated GFR (MDRD) 52.4 ml/min Glucose 193 H (74-106) mg/dL Calcium 8.9 (8.5-10.1) mg/dL Total Bilirubin 0.4 (0.2-1.0) mg/dL AST 19 (15-37) IU/L ALT 19 (14-63) IU/L Alkaline Phosphatase 121 H (46-116) U/L Total Protein 6.9 (6.4-8.2) g/dL Albumin 3.3 L (3.4-5.0) g/dL Globulin 3.6 H (2.0-3.5) g/dL Albumin/Globulin Ratio 0.9 L (1.3-2.8) Amylase 92 (25-115) U/L Lipase 107 (73-393) U/L Urine Color Urine Appearance Urine pH (5.0-8.0) Ur Specific [place] (1.001-1.035) Urine Protein (NEGATIVE) mg/dL Urine Glucose (UA) (NEGATIVE) mg/dL Urine Ketones (NEGATIVE) mg/dL Urine Occult Blood (NEGATIVE) Urine Nitrite (NEGATIVE) Urine Bilirubin (NEGATIVE) Urine Urobilinogen (<2.0) EU/dL Ur Leukocyte Esterase (NEGATIVE) Urine RBC (0-2/HPF) Urine WBC (0-5/HPF) Ur Epithelial Cells (NONE-FEW) Urine Bacteria (NEGATIVE) H. pylori IgG Antibody NEGATIVE (NEG) 06/08/18 Range/Units 19:21 WBC (4.0-11.0) K/uL RBC (4.30-5.90) M/uL Hgb (12.0-16.0) g/dL Hct (36.0-46.0) % MCV (80.0-98.0) fL MCH (27.0-32.0) pg MCHC (31.0-37.0) g/dL RDW Std Deviation (28.0-62.0) fl RDW Coeff of Kennedi (11.0-15.0) % Plt Count (150-400) K/uL MPV (7.40-12.00) fL Neut % (Auto) (48.0-80.0) % Lymph % (Auto) (16.0-40.0) % [place] % (Auto) (0.0-15.0) % Eos % (Auto) (0.0-7.0) % Baso % (Auto) (0.0-1.5) % Neut # (Auto) (1.4-5.7) K/uL Lymph # (Auto) (0.6-2.4) K/uL [place] # (Auto) (0.0-0.8) K/uL Eos # (Auto) (0.0-0.7) K/uL Baso # (Auto) (0.0-0.1) K/uL Nucleated RBC % /100WBC Nucleated RBCs # K/uL Sodium (136-145) mmol/L Potassium (3.5-5.1) mmol/L Chloride (98-107) mmol/L Carbon Dioxide (21.0-32.0) mmol/L BUN (7.0-18.0) mg/dL Creatinine (0.6-1.0) mg/dL Est Cr Clr Drug Dosing Estimated GFR (MDRD) ml/min Glucose (74-106) mg/dL Calcium (8.5-10.1) mg/dL Total Bilirubin (0.2-1.0) mg/dL AST (15-37) IU/L ALT (14-63) IU/L Alkaline Phosphatase (46-116) U/L Total Protein (6.4-8.2) g/dL Albumin (3.4-5.0) g/dL Globulin (2.0-3.5) g/dL Albumin/Globulin Ratio (1.3-2.8) Amylase (25-115) U/L Lipase (73-393) U/L Urine Color YELLOW Urine Appearance HAZY Urine pH 6.5 (5.0-8.0) Ur Specific [place] 1.015 (1.001-1.035) Urine Protein TRACE (NEGATIVE) mg/dL Urine Glucose (UA) NEGATIVE (NEGATIVE) mg/dL Urine Ketones NEGATIVE (NEGATIVE) mg/dL Urine Occult Blood SMALL H (NEGATIVE) Urine Nitrite NEGATIVE (NEGATIVE) Urine Bilirubin NEGATIVE (NEGATIVE) Urine Urobilinogen 0.2 (<2.0) EU/dL Ur Leukocyte Esterase SMALL (NEGATIVE) Urine RBC 2-4 (0-2/HPF) Urine WBC 15-18 (0-5/HPF) Ur Epithelial Cells MODERATE (NONE-FEW) Urine Bacteria FEW (NEGATIVE) H. pylori IgG Antibody (NEG) Meds: Medications Generic Name Dose Route Start Last Admin Trade Name Norbertq PRN Reason Stop Dose Admin Sodium Chloride 10 ml 06/08/18 17:28 Saline Flush FLUSH ASDIRECTED PRN Keep Vein Open Sodium Chloride 2.5 ml 06/08/18 17:28 Saline Flush FLUSH ASDIRECTED PRN Keep Vein Open Discontinued Medications Generic Name Dose Route Start Last Admin Trade Name Freq PRN Reason Stop Dose Admin Sodium Chloride 1,000 mls @ 999 mls/hr 06/08/18 17:28 06/08/18 17:49 Normal Saline IV 06/08/18 18:28 999 mls/hr STAT ONE Administration Iopamidol 75 ml 06/08/18 19:28 06/08/18 19:29 Isovue-370 (76%) IVPUSH 06/08/18 19:29 75 ml ONETIME ONE Administration Lorazepam 1 mg 06/08/18 17:28 06/08/18 17:51 Ativan IVPUSH 06/08/18 17:29 1 mg ONETIME ONE Administration Morphine Sulfate 2 mg 06/08/18 17:29 06/08/18 17:55 Morphine IVPUSH 06/08/18 17:30 2 mg ONETIME ONE Administration Ondansetron HCl 4 mg 06/08/18 17:28 06/08/18 17:53 Zofran IVPUSH 06/08/18 17:29 4 mg ONETIME ONE Administration Pantoprazole Sodium 40 mg 06/08/18 17:28 06/08/18 17:57 Protonix Iv IVPUSH 06/08/18 17:29 40 mg NOW ONE Administration Departure - Departure Disposition: Home, Self-Care 01 Condition: Good Clinical Impression: Upper abdominal pain, Anxiety reaction Vomiting Qualifiers: Vomiting type: unspecified Vomiting Intractability: non-intractable Nausea presence: with nausea Qualified Code(s): R11.2 - Nausea with vomiting, unspecified UTI (urinary tract infection) Qualifiers: Urinary tract infection type: site unspecified Hematuria presence: without hematuria Qualified Code(s): N39.0 - Urinary tract infection, site not specified - Discharge Information Referrals: Syed Mosley MD [Primary Care Provider] - Forms: ED Department Discharge Additional Instructions: The following information is given to patients seen in the emergency department who are being discharged to home. This information is to outline your options for follow-up care. We provide all patients seen in our emergency department with a follow-up referral. The need for follow-up, as well as the timing and circumstances, are variable depending upon the specifics of your emergency department visit. If you don't have a primary care physician on staff, we will provide you with a referral. We always advise you to contact your personal physician following an emergency department visit to inform them of the circumstance of the visit and for follow-up with them and/or the need for any referrals to a consulting specialist. The emergency department will also refer you to a specialist when appropriate. This referral assures that you have the opportunity for followup care with a specialist. All of these measure are taken in an effort to provide you with optimal care, which includes your followup. Under all circumstances we always encourage you to contact your private physician who remains a resource for coordinating your care. When calling for followup care, please make the office aware that this follow-up is from your recent emergency room visit. If for any reason you are refused follow-up, please contact the [facility] emergency department at and ask to speak to the emergency department charge nurse. [facility] Primary care- Internal Medicine and Family [facility] [address] [place] [address] [id number] [facility] Specialty Care-General Surgery Professional Building [address] [place] [id number] Please try to push sips of hydration and bland bites of food. Continue your home medications and please call and schedule a follow-up appointment with one of our clinic providers for further care and evaluation of these complaints area return to ER as needed and as discussed. Please try to avoid caffeinated products and any spicy fatty or junk foods. - My Orders Last 24 Hours: My Active Orders 06/08/18 19:18 CULTURE URINE [RM] Stat - Assessment/Plan Last 24 Hours: My Active Orders 06/08/18 19:18 CULTURE URINE [RM] Stat <Sundar Celeste E - Last Filed: 06/08/18 20:06> ED HPI GENERAL MEDICAL PROBLEM - History of Present Illness INITIAL COMMENTS - FREE TEXT/NARRATIVE: I assumed care of this patient at 1900. Her urinalysis does show that it is contaminated but does have wbc's and bacteria and will treat her with Macrobid. In tablet will be given here while in the emergency room. A urine culture has also been added. CT of the abdomen and pelvis shows no acute abnormality in the abdomen or pelvis although there are some micronodular obesities in the right middle lobe which may be infectious or inflammatory. She does not have an elevated white count and does not have any respiratory symptoms. Prescription for Carafate 1 g 4 times a day 1 hour before meals and at bedtime Zofran ODT 1 tab every 8 hours as needed for nausea. These results and discharge instructions were shared with the patient. She voices understanding and is agreeable to plan of care. She denies any further questions or concerns at this time. Departure - Departure Time of Disposition: 20:06
[2018-06-08 18:15] LABS: CHLORIDE,CL 103 mmol/L (98-107); SODIUM,NA 139 mmol/L (136-145)
[2018-06-08] MEDS ORDERED: Iopamidol 755 Mg/ML 100 ML Bottle IVPUSH ONE (19:28)
[2018-06-08] MEDS ORDERED: Nitrofurantoin Monohydrate/Macrocrystalline 100 MG Cap PO ONE (20:06)
[2018-06-08 21:40] VITALS: BP 156/91
--- NOTE | 2018-06-09 21:00 | CT ---
EXAM DATE: 06/08/18 PATIENT'S AGE: 53 Patient: MITCHELL MCCRAY Facility: [place], [place] Site . Site : [id number] Study: CT Abdomen/Pelvis w/ cont [id number]/8/2018 7:26:32 PM Ordering Physician: Heladio Davis Final Report: INDICATION: Abdominal pain. Nausea and vomiting. TECHNIQUE: CT abdomen and pelvis acquired with IV contrast. Motion artifact present on portal venous phase images. Delayed phase images also obtained. . COMPARISON: None FINDINGS: Lower chest: There are scattered micro nodules in the right middle lobe and both lower lobes. Liver: Unremarkable. Spleen: Unremarkable. Pancreas: Unremarkable. Gallbladder and bile ducts: Unremarkable. Kidneys: 1.5 cm cyst in the midpole of the left kidney. Tiny low-density lesion in the midpole of the right kidney is too small to characterize. No other renal abnormality. Adrenal glands: Unremarkable. GI tract: No bowel wall thickening or dilatation. No pericolonic inflammatory stranding. Appendix is normal. Vascular structures: No sign of aneurysm. There is mild atherosclerotic calcification. Lymph nodes: Unremarkable. Miscellaneous: No ascites. No free air. Calcification in the subcutaneous fat of the left flank may reflect injection granuloma. Pelvic Organs: The urinary bladder is normal. The uterus is absent. Bones: No acute abnormality. No suspicious bone lesion. IMPRESSION: 1. Micronodular opacities in the right middle lobe and both lower lobes. Findings may represent an infectious or inflammatory process. 2. No acute abnormality in the abdomen or pelvis. Dictated by Zheng Cuevas MD @ 06/08/2018 7:52:06 PM Dictated by: Zheng Cuevas MD @ 06/08/2018 19:52:36 (Electronic Signature) Report Signed by Proxy. COLETTE
== END 2018-06-08 20:25 | disposition home or self-care (01) ==
LOC: MW.ED 17:09
DX: N39.0 Urinary tract infection, site not specified (principal); F41.9 Anxiety disorder, unspecified; E11.9 Type 2 diabetes mellitus without complications; I10 Essential (primary) hypertension; Z91.040 Latex allergy status; Z88.2 Allergy status to sulfonamides; Z79.4 Long term (current) use of insulin; Z79.899 Other long term (current) drug therapy
CPT/HCPCS: 36415; 74177; 80053; 81001; 82150; 83690; 85025; 86677; 87086; 93005; 96361; 96374; 96375; 99284; C9113; J2060; J2270; J2405; J7040; Q9967

== ENCOUNTER 2018-06-12 20:07 | Emergency (ER) | payer MEDICAID ==
--- NOTE | 2018-06-12 20:14 | EDM.PDOC ---
ED HPI GENERAL MEDICAL PROBLEM - General Time Seen by Provider: 06/12/18 20:10 Source of Information: Reports: Patient History Limitations: Reports: No Limitations - History of Present Illness INITIAL COMMENTS - FREE TEXT/NARRATIVE: HISTORY AND PHYSICAL: History of present illness: Patient is a 53-year-old female who presents to the emergency room today with complaints of right-sided chest wall pain. She states that the pain is improved when taking hot baths or pressing against the right side of her chest. She states she has taken multiple hot baths today to help alleviate her discomfort but had has not subsided. She is a pack per day smoker. The chest pain does not radiate into her jaw, back or shoulders. She denies any fever, chills, diaphoresis, abdominal pain, nausea, vomiting, diarrhea or constipation. No previous lung diseases or illnesses. Past medical history of anxiety, depression, poorly controlled type 2 diabetes, H. pylori and peptic ulcer disease. Review of systems: As per history of present illness and below otherwise all systems reviewed and negative. Past medical history: As per history of present illness and as reviewed below otherwise noncontributory. Surgical history: As per history of present illness and as reviewed below otherwise noncontributory. Social history: No reported history of drug or alcohol abuse. Family history: As per history of present illness and as reviewed below otherwise noncontributory. Physical exam: General: Well-developed and well-nourished 53-year-old female. Alert and oriented. Nontoxic appearing and in no acute distress. HEENT: Atraumatic, normocephalic, pupils equal and reactive bilaterally, negative for conjunctival pallor or scleral icterus, mucous membranes moist, throat clear, neck supple, nontender, trachea midline. No drooling or trismus noted. No meningeal signs Lungs: Fine expiratory wheezing noted to right posterior lobe, breath sounds equal bilaterally, chest nontender. Heart: S1S2, regular rate and rhythm without overt murmur Abdomen: Soft, nondistended, nontender. Negative for masses or hepatosplenomegaly. Negative for costovertebral tenderness. Pelvis: Stable nontender. Genitourinary: Deferred. Rectal: Deferred. Skin: Intact, warm, dry. No lesions or rashes noted. Extremities: Atraumatic, negative for cords or calf pain. Neurovascular unremarkable. Neuro: Awake, alert, oriented. Cranial nerves II through XII unremarkable. Cerebellum unremarkable. Motor and sensory unremarkable throughout. Exam nonfocal. Notes: 06/08/2018: Patient was seen in our emergency room and did have a workup completed at this time. She was diagnosed with a UTI and started on antibiotics. Initially patient was agreeable to doing a DuoNeb during the nebulizer treatment she told RT that she was concerned that she may feel "funny" and requested that the medication be stopped. Lab work is unremarkable. Negative troponin. I did offer her admission, she declines. He states she would like to be discharged to home and she does feel anxious at this time. X-ray shows few faint nodular opacities scattered throughout the lung [place] which is concerning for infection. That coupled with her current complaints and will place her on a Z-Kana. Infant and symptoms that would prompt her to return to the emergency room were reviewed and discussed. Supportive care measures were reviewed and discussed. She is agreeable to plan of care. Denies any further questions at this time. Diagnostics: CBC, CMP, EKG, 2 view chest x-ray, troponin Therapeutics: DuoNeb, normal saline Impression: Pneumonia Plan: 1. Please take your medications as directed. 2. Follow-up with your primary caregiver in the next 1-2 days. Return to the ED as needed and as discussed. Definitive disposition and diagnosis as appropriate pending reevaluation and review of above. Chest Pain Score (Numeric/FACES): 3 - Related Data Allergies Allergy/AdvReac Type Severity Reaction Status Date / Time latex Allergy Rash Verified 04/27/18 04:06 Sulfa (Sulfonamide Allergy Airway Verified 04/27/18 04:06 Antibiotics) Tightness sulfur dioxide Allergy Airway Verified 04/27/18 04:06 Tightness Home Meds: Home Meds Insulin Aspart [NovoLOG] See Protocol SUBCUT ACBED #1 pen 04/22/18 [Rx] Insulin Glarg,Human.Rec.Analog [Lantus Solostar] 20 units SUBCUT BEDTIME #1 pen 04/22/18 [Rx] Pantoprazole [ProTONIX] 40 mg PO BIDAC #20 tab.cr 04/22/18 [Rx] QUEtiapine [SEROquel] 25 mg PO BEDTIME #30 tab 04/22/18 [Rx] Past Medical History - Past Health History Medical/Surgical History: Denies Medical/Surgical History HEENT History: Reports: Other (See Below) Other HEENT History: has top denture Cardiovascular History: Reports: Hypertension Other Cardiovascular History: murmur as an Respiratory History: Reports: Other (See Below) Other Respiratory History: chronic daily smoker Gastrointestinal History: Reports: Helicobacter Pylori, Other (See Below) Other Gastrointestinal History: gastroparesis Genitourinary History: Reports: None 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: Musculoskeletal History: Reports: Back Pain, Chronic Neurological History: Reports: Migraines, Other (See Below) Other Neuro History: "Silent Migraines" Psychiatric History: Reports: Anxiety, Depression Endocrine/Metabolic History: Reports: Diabetes, Type II Other Endocrine/Metabolic History: Pt questions this Dx Hematologic History: Reports: Other (See Below) Other Hematologic History: States "bacterium in blood" Immunologic History: Reports: None Other Immunologic History: states was in the hospital in [place] last summer with blood infection "not sure what it was called" Oncologic (Cancer) History: Reports: Ovarian Dermatologic History: Reports: Eczema - Infectious Disease History Infectious Disease History: Reports: Chicken Pox - Past Surgical History Head Surgeries/Procedures: Reports: None GI Surgical History: Reports: None - History Comment History Comment: Son says she's been evaluated for these sxs in past but doesn' t recall where w/u was done (including CT of abd). No EGD ever done. The h pylori was dx'd by serologies. Social & Family History - Family History Family Medical History: Noncontributory Cardiac: Reports: Hypertension Other Cardiac Family History: Mother, Aunt Respiratory: Reports: COPD Other Respiratory Family Hisory: Uncle GI: Reports: None Neurological: Reports: Other (See Below) Other Neurological Family History: Stroke-Grandmother Endocrine/Metabolic: Reports: Diabetes, type II - Caffeine Use Caffeine Use: Reports: Coffee - Living Situation & Occupation Living situation: Reports: Single Occupation: Unemployed ED ROS GENERAL - Review of Systems Review Of Systems: ROS reveals no pertinent complaints other than HPI. ED EXAM, GENERAL - Physical Exam Exam: See Below (See dictation) Course - Vital Signs Last Recorded V/S: Last Vital Signs Temp 97.8 F 06/12/18 20:14 Pulse 99 06/12/18 20:14 Resp 18 06/12/18 20:14 BP 146/85 H 06/12/18 20:14 Pulse Ox 96 06/12/18 20:14 - Orders/Labs/Meds Orders: Active Orders 24 hr Category Date Time Status EKG Documentation Completion [RC] STAT Care 06/12/18 20:15 Active RT Aerosol Therapy [RC] ASDIRECTED Care 06/12/18 20:15 Active Chest 2V [CR] Stat Exams 06/12/18 20:15 Taken Sodium Chloride 0.9% [Normal Saline] 1,000 ml Med 06/12/18 20:15 Active IV STAT Medication Orders Sodium Chloride (Normal Saline) 1,000 mls @ 125 mls/hr IV STAT ONE Stop: 06/13/18 04:14 Last Admin: 06/12/18 20:24 Dose: 125 mls/hr Labs: Laboratory Tests 06/12/18 06/12/18 Range/Units 20:25 20:25 WBC 6.93 (4.0-11.0) K/uL RBC 3.76 L (4.30-5.90) M/uL Hgb 11.2 L (12.0-16.0) g/dL Hct 32.9 L (36.0-46.0) % MCV 87.5 (80.0-98.0) fL MCH 29.8 (27.0-32.0) pg MCHC 34.0 (31.0-37.0) g/dL RDW Std Deviation 43.6 (28.0-62.0) fl RDW Coeff of Kennedi 14 (11.0-15.0) % Plt Count 222 (150-400) K/uL MPV 11.80 (7.40-12.00) fL Neut % (Auto) 62.1 (48.0-80.0) % Lymph % (Auto) 27.8 (16.0-40.0) % [place] % (Auto) 5.5 (0.0-15.0) % Eos % (Auto) 4.2 (0.0-7.0) % Baso % (Auto) 0.4 (0.0-1.5) % Neut # (Auto) 4.3 (1.4-5.7) K/uL Lymph # (Auto) 1.9 (0.6-2.4) K/uL [place] # (Auto) 0.4 (0.0-0.8) K/uL Eos # (Auto) 0.3 (0.0-0.7) K/uL Baso # (Auto) 0.0 (0.0-0.1) K/uL Nucleated RBC % 0.0 /100WBC Nucleated RBCs # 0 K/uL Sodium 140 (136-145) mmol/L Potassium 3.5 (3.5-5.1) mmol/L Chloride 103 (98-107) mmol/L Carbon Dioxide 27.9 (21.0-32.0) mmol/L BUN 16 (7.0-18.0) mg/dL Creatinine 1.0 (0.6-1.0) mg/dL Est Cr Clr Drug Dosing 60.53 mL/min Estimated GFR (MDRD) 58.5 ml/min Glucose 319 H (74-106) mg/dL Calcium 8.7 (8.5-10.1) mg/dL Total Bilirubin 0.2 (0.2-1.0) mg/dL AST 14 L (15-37) IU/L ALT 15 (14-63) IU/L Alkaline Phosphatase 117 H (46-116) U/L Troponin I < 0.050 (0.000-0.056) ng/mL Total Protein 6.5 (6.4-8.2) g/dL Albumin 3.1 L (3.4-5.0) g/dL Globulin 3.4 (2.0-3.5) g/dL Albumin/Globulin Ratio 0.9 L (1.3-2.8) Meds: Medications Generic Name Dose Route Start Last Admin Trade Name Freq PRN Reason Stop Dose Admin Sodium Chloride 1,000 mls @ 125 mls/hr 06/12/18 20:15 06/12/18 20:24 Normal Saline IV 06/13/18 04:14 125 mls/hr STAT ONE Administration Discontinued Medications Generic Name Dose Route Start Last Admin Trade Name Freq PRN Reason Stop Dose Admin Albuterol/Ipratropium 3 ml 06/12/18 20:15 06/12/18 20:31 Duoneb 3.0-0.5 Mg/3 Ml NEB 06/12/18 20:16 3 ml ONETIME ONE Administration Departure - Departure Time of Disposition: 21:31 Disposition: Home, Self-Care 01 Clinical Impression: Pneumonia Qualifiers: Pneumonia type: due to unspecified organism Laterality: unspecified laterality Lung location: unspecified part of lung Qualified Code(s): J18.9 - Pneumonia, unspecified organism - Discharge Information Referrals: PCP,None [Primary Care Provider] - Additional Instructions: The following information is given to patients seen in the emergency department who are being discharged to home. This information is to outline your options for follow-up care. We provide all patients seen in our emergency department with a follow-up referral. The need for follow-up, as well as the timing and circumstances, are variable depending upon the specifics of your emergency department visit. If you don't have a primary care physician on staff, we will provide you with a referral. We always advise you to contact your personal physician following an emergency department visit to inform them of the circumstance of the visit and for follow-up with them and/or the need for any referrals to a consulting specialist. The emergency department will also refer you to a specialist when appropriate. This referral assures that you have the opportunity for follow-up care with a specialist. All of these measure are taken in an effort to provide you with optimal care, which includes your follow-up. Under all circumstances we always encourage you to contact your private physician who remains a resource for coordinating your care. When calling for follow-up care, please make the office aware that this follow-up is from your recent emergency room visit. If for any reason you are refused follow-up, please contact the [facility] Emergency Department at and asked to speak to the emergency department charge nurse. [facility] [address] [place] [id number] 1. Please take your medications as directed. 2. Follow-up with your primary caregiver in the next 1-2 days. Return to the ED as needed and as discussed. - My Orders Last 24 Hours: My Active Orders 06/12/18 20:15 EKG Documentation Completion [RC] STAT RT Aerosol Therapy [RC] ASDIRECTED Chest 2V [CR] Stat Sodium Chloride 0.9% [Normal Saline] 1,000 ml IV STAT - Assessment/Plan Last 24 Hours: My Active Orders 06/12/18 20:15 EKG Documentation Completion [RC] STAT RT Aerosol Therapy [RC] ASDIRECTED Chest 2V [CR] Stat Sodium Chloride 0.9% [Normal Saline] 1,000 ml IV STAT
[2018-06-12] MEDS ORDERED: Sodium Chloride 0.9% 1,000 ML IV ONE (20:15)
[2018-06-12] MEDS ORDERED: Albuterol/Ipratropium 3.0-0.5 MG/3 ML Neb Soln NEB ONE (20:15)
[2018-06-12 21:14] LABS: CHLORIDE,CL 103 mmol/L (98-107); SODIUM,NA 140 mmol/L (136-145)
[2018-06-13 00:10] VITALS: BP 161/100
--- NOTE | 2018-06-13 13:43 | CR ---
EXAM DATE: 06/12/18 PATIENT'S AGE: 53 Patient: MITCHELL MCCRAY Facility: [place], [place] : 1965 Study: XRay Chest [id number]/12/2018 8:48:25 PM Ordering Physician: Doctor Ta Final Report: INDICATION: Right-sided chest pain TECHNIQUE: Chest 2 views. COMPARISON: Correlated with CT abdomen June 08, 2018 FINDINGS: Cardiovascular and mediastinum: Heart size and vasculature are normal in caliber and appearance. Mediastinum is within normal limits. Lungs and pleural spaces: Faint nodular opacities scattered throughout the lungs. No focal consolidation. No sign of pleural effusion. No pneumothorax. Bones and soft tissues: No significant findings. IMPRESSION: New, faint nodular opacities scattered throughout the lungs concerning for infection. Dictated by Sabine Hernandez MD @ Jun 12 2018 9:04PM (Electronic Signature) Report Signed by Proxy. COLETTE
== END 2018-06-12 21:45 | disposition home or self-care (01) ==
LOC: MW.ED 20:07
DX: J18.9 Pneumonia, unspecified organism (principal); I10 Essential (primary) hypertension; E11.9 Type 2 diabetes mellitus without complications; Z91.040 Latex allergy status; Z88.2 Allergy status to sulfonamides; Z79.4 Long term (current) use of insulin; Z79.899 Other long term (current) drug therapy
CPT/HCPCS: 71046; 80053; 84484; 85025; 93005; 94640; 96360; 99285; J7040

== ENCOUNTER 2019-07-03 13:01 | Emergency (ER) | payer SELFPAY ==
--- NOTE | 2019-07-03 13:13 | EDM.PDOC ---
ED HPI GENERAL MEDICAL PROBLEM - General Chief Complaint: Lower Extremity Injury/Pain Stated Complaint: FOOT COMPLAINT Time Seen by Provider: 07/03/19 13:03 Source of Information: Reports: Patient History Limitations: Reports: No Limitations - History of Present Illness INITIAL COMMENTS - FREE TEXT/NARRATIVE: HISTORY AND PHYSICAL: History of present illness: Patient is a 54-year-old female who presents to the emergency room with complaints of right ankle pain since 06/27/19. She states on that date she was mowing the lawn when she rolled her ankle resulting in pain. Since that time she has had increased pain, soft tissue swelling and bruising. Here today as the pain has not improved. She denies hitting her head or having any loss of consciousness related to this injury. Offers no other concerns or complaints at this time. Review of systems: As per history of present illness and below otherwise all systems reviewed and negative. Past medical history: As per history of present illness and as reviewed below otherwise noncontributory. Surgical history: As per history of present illness and as reviewed below otherwise noncontributory. Social history: See social history for further information Family history: As per history of present illness and as reviewed below otherwise noncontributory. Physical exam: General: Well-developed and well-nourished 54-year-old female. Alert and oriented. Nontoxic appearing and in no acute distress. HEENT: Atraumatic, normocephalic, pupils equal and reactive bilaterally, negative for conjunctival pallor or scleral icterus, mucous membranes moist, trachea midline. No drooling or trismus noted. No meningeal signs. No hot potato voice noted. Lungs: Clear to auscultation, breath sounds equal bilaterally. Heart: S1S2, regular rate and rhythm without overt murmur Abdomen: Soft, nondistended, nontender. Skin: Mild soft tissue swelling noted to the right lateral ankle with bruising which started at the ankle and now is falling towards the base of the foot. Otherwise skin is intact, warm, dry. No lesions or rashes noted. Extremities: Ambulatory, pain with palpation to the right lateral ankle - specifically the malleolus. Able to weight-bear, moves all extremities per self without difficulty or deficits, negative for cords or calf pain. Strong pedal and pretibial pulses. Capillary refill less than 3 seconds. Neurovascular unremarkable. Neuro: Awake, alert, oriented. Cranial nerves II through XII unremarkable. Cerebellum unremarkable. Motor and sensory unremarkable throughout. Exam nonfocal. Notes: Toradol was offered, she declines. Agreeable for x-ray at this time. X-ray shows no acute findings. Crutches and stirrup splint given for comfort. Supportive care measures were reviewed and discussed. Voices understanding and is agreeable to plan of care. Denies any further questions or concerns at this time. Diagnostics: Right ankle x-ray Therapeutics: Stirrup splint, crutches Prescription: None Impression: Right ankle injury Plan: 1. Rest, ice, elevate the affected extremity. Please wear the splint as directed. 2. Tylenol and/or Ibuprofen as needed for pain management. 3. Follow up with the Orthopedic provider as we discussed. Return to the ED as needed and as discussed. Definitive disposition and diagnosis as appropriate pending reevaluation and review of above. Onset: Today Right Ankle Pain Score (Numeric/FACES): 2 - Related Data Allergies Allergy/AdvReac Type Severity Reaction Status Date / Time latex Allergy Rash Verified 07/03/19 13:17 Sulfa (Sulfonamide Allergy Airway Verified 07/03/19 13:17 Antibiotics) Tightness sulfur dioxide Allergy Airway Verified 07/03/19 13:17 Tightness Home Meds: Home Meds . 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: Musculoskeletal History: Reports: Back Pain, Chronic Neurological History: Reports: Migraines, Other (See Below) Other Neuro History: "Silent Migraines" Psychiatric History: Reports: Anxiety, Depression Endocrine/Metabolic History: Reports: Diabetes, Type II Other Endocrine/Metabolic History: Pt questions this Dx Hematologic History: Reports: Other (See Below) Other Hematologic History: States "bacterium in blood" Immunologic History: Reports: None Other Immunologic History: states was in the hospital in [place] last summer with blood infection "not sure what it was called" Oncologic (Cancer) History: Reports: Ovarian Dermatologic History: Reports: Eczema - Infectious Disease History Infectious Disease History: Reports: Chicken Pox - Past Surgical History Head Surgeries/Procedures: Reports: None GI Surgical History: Reports: None - History Comment History Comment: Son says she's been evaluated for these sxs in past but doesn' t recall where w/u was done (including CT of abd). No EGD ever done. The h pylori was dx'd by serologies. Social & Family History - Family History Family Medical History: Noncontributory Cardiac: Reports: Hypertension Other Cardiac Family History: Mother, Aunt Respiratory: Reports: COPD Other Respiratory Family Hisory: Uncle GI: Reports: None Neurological: Reports: Other (See Below) Other Neurological Family History: Stroke-Grandmother Endocrine/Metabolic: Reports: Diabetes, type II - Caffeine Use Caffeine Use: Reports: Coffee - Living Situation & Occupation Living situation: Reports: Single Occupation: Unemployed Review of Systems - Review of Systems Review Of Systems: ROS reveals no pertinent complaints other than HPI. ED EXAM, GENERAL - Physical Exam Exam: See Below (See dictation) Course - Vital Signs Last Recorded V/S: Last Vital Signs Temp Pulse 95 07/03/19 13:15 Resp 18 07/03/19 13:15 BP 103/67 07/03/19 13:15 Pulse Ox 97 07/03/19 13:15 - Orders/Labs/Meds Orders: Active Orders 24 hr Category Date Time Status DME for Discharge [COMM] Stat Oth 07/03/19 13:22 Ordered Departure - Departure Time of Disposition: 14:07 Disposition: Home, Self-Care 01 Clinical Impression: Right ankle injury Qualifiers: Encounter type: initial encounter Qualified Code(s): S99.911A - Unspecified injury of right ankle, initial encounter - Discharge Information Instructions: Ankle Sprain, [id number] Referrals: PCP,Unknown [Primary Care Provider] - Forms: ED Department Discharge Additional Instructions: The following information is given to patients seen in the emergency department who are being discharged to home. This information is to outline your options for follow-up care. We provide all patients seen in our emergency department with a follow-up referral. The need for follow-up, as well as the timing and circumstances, are variable depending upon the specifics of your emergency department visit. If you don't have a primary care physician on staff, we will provide you with a referral. We always advise you to contact your personal physician following an emergency department visit to inform them of the circumstance of the visit and for follow-up with them and/or the need for any referrals to a consulting specialist. The emergency department will also refer you to a specialist when appropriate. This referral assures that you have the opportunity for follow-up care with a specialist. All of these measure are taken in an effort to provide you with optimal care, which includes your follow-up. Under all circumstances we always encourage you to contact your private physician who remains a resource for coordinating your care. When calling for follow-up care, please make the office aware that this follow-up is from your recent emergency room visit. If for any reason you are refused follow-up, please contact the [facility] Emergency Department at and asked to speak to the emergency department charge nurse. [facility] [address] [place] [address] [place] [address] 1. Rest, ice, elevate the affected extremity. Please wear the splint as directed. 2. Tylenol and/or Ibuprofen as needed for pain management. 3. Follow up with the Orthopedic provider as we discussed. Return to the ED as needed and as discussed. - My Orders Last 24 Hours: My Active Orders 07/03/19 13:22 DME for Discharge [COMM] Stat - Assessment/Plan Last 24 Hours: My Active Orders 07/03/19 13:22 DME for Discharge [COMM] Stat
--- NOTE | 2019-07-03 13:54 | CR ---
Indication: Pain, injury June 27, 2019 Technique: Three views right ankle Comparison: None Findings: Bones: Alignment is normal. No fractures or bone lesions. Joint spaces: Unremarkable. Soft tissues: Unremarkable. Impression: Negative. Dictated by Sabine Hernandez MD @ Jul 03 2019 1:52PM Signed by Dr. Sabine Hernandez @ Jul 03 2019 1:53PM
[2019-07-03 14:21] VITALS: BP 105/68; PULSE 97
== END 2019-07-03 14:20 | disposition home or self-care (01) ==
LOC: MW.ED 13:01
DX: S90.01XA Contusion of right ankle, initial encounter (principal); E11.9 Type 2 diabetes mellitus without complications; I10 Essential (primary) hypertension; F17.210 Nicotine dependence, cigarettes, uncomplicated; Z91.040 Latex allergy status; Z88.2 Allergy status to sulfonamides; X50.1XXA Overexertion from prolonged static or awkward postures, initial encounter; Y93.H2 Activity, gardening and landscaping
CPT/HCPCS: 73610-26-RT; 73610-RT; 99283; 99283-25

== ENCOUNTER 2019-08-31 17:21 | Inpatient (IN) | payer MEDICAID ==
[2019-08-31] MEDS ORDERED: Sodium Chloride 0.9% 10 ML Syringe FLUSH PRN (17:32)
[2019-08-31] MEDS ORDERED: Sodium Chloride 0.9% 1,000 ML IV ONE ×2 (17:32→18:51)
[2019-08-31] MEDS ORDERED: Sodium Chloride 0.9% 2.5 ML Syringe FLUSH PRN (17:32)
--- NOTE | 2019-08-31 17:37 | EDM.PDOC ---
ED HPI GENERAL MEDICAL PROBLEM - General Chief Complaint: Diabetic Complaint Stated Complaint: HIG H BLOOD SUGAR Time Seen by Provider: 08/31/19 17:31 Source of Information: Reports: Patient History Limitations: Reports: No Limitations - History of Present Illness INITIAL COMMENTS - FREE TEXT/NARRATIVE: HISTORY AND PHYSICAL: History of present illness: Patient is a 54-year-old female who presents to the emergency room with elevated blood sugar. Patient reports that she has a type II diabetic, previously insulin-dependent, and has not had any form of diabetic medications in 4-5 months. She states that she was last seen by provider and the residency clinic in March. She states her insurance ran out at that time and was not able to further refill any of her insulin. She states over the past few days she has had generalized abdominal pain, nausea and increased anxiety. Patient denies any fever, chills, headache, change in vision, syncope or near syncope. Denies any chest pain, back pain, shortness of breath or cough. Denies any vomiting, diarrhea, constipation or dysuria. Has not noted any blood in urine or stool. Patient has been eating and drinking appropriately. Review of systems: As per history of present illness and below otherwise all systems reviewed and negative. Past medical history: As per history of present illness and as reviewed below otherwise noncontributory. Surgical history: As per history of present illness and as reviewed below otherwise noncontributory. Social history: See social history for further information Family history: As per history of present illness and as reviewed below otherwise noncontributory. Physical exam: General: Well-developed 54-year-old female. Alert and oriented. Patient is very anxious appearing and writhing on the bed while nursing is performing an IV. Vital signs are stable and have been reviewed by me. HEENT: Atraumatic, normocephalic, pupils equal and reactive bilaterally, negative for conjunctival pallor or scleral icterus, mucous membranes moist, TMs normal bilaterally, throat clear, neck supple, nontender, trachea midline. No drooling or trismus noted. No meningeal signs. No hot potato voice noted. Lungs: Clear to auscultation, breath sounds equal bilaterally, chest nontender. Heart: S1S2, regular rate and rhythm without overt murmur Abdomen: Soft, nondistended, nontender. Negative for masses or hepatosplenomegaly. Negative for costovertebral tenderness. Pelvis: Stable nontender. Skin: Intact, warm, dry. No lesions or rashes noted. Extremities: Atraumatic, moves all extremities per self without difficulty or deficits, negative for cords or calf pain. Neurovascular unremarkable. Neuro: Awake, alert, oriented. Cranial nerves II through XII unremarkable. Cerebellum unremarkable. Motor and sensory unremarkable throughout. Exam nonfocal. Notes: Patient refuses to have an ABG drawn. Family at bedside voice frustration that the patient will typically come into the emergency room and only allow certain testing to be done and requesting only certain medications. The family at bedside states that she is noncompliant with her medications and thinks she has trying to "commit medical suicide". Patient denies any thoughts of self-harm. She is tearful and appears very anxious. Spoke with Dr Belle about this patient. She is aware and agreeable to accepting this patient for admission. As patient will be on an insulin drip will admit to ICU. Patient is aware and agreeable. Diagnostics: CBC, CMP, UA, ABG (refused), lipase, DRGU, UA, ETOH Therapeutics: IV fluid, Ativan, Zofran, insulin Impression: Medication noncompliance DKA Plan: Admission to ICU with insulin drip Definitive disposition and diagnosis as appropriate pending reevaluation and review of above. - Related Data Allergies Allergy/AdvReac Type Severity Reaction Status Date / Time latex Allergy Rash Verified 08/31/19 17:41 Sulfa (Sulfonamide Allergy Airway Verified 08/31/19 17:41 Antibiotics) Tightness sulfur dioxide Allergy Airway Verified 08/31/19 17:41 Tightness Home Meds: Home Meds . [No Known Home Meds] 07/03/19 [History] Past Medical History - Past Health History Medical/Surgical History: Denies Medical/Surgical History HEENT History: Reports: Other (See Below) Other HEENT History: has top denture Cardiovascular History: Reports: Hypertension Other Cardiovascular History: murmur as an infant Respiratory History: Reports: Other (See Below) Other Respiratory History: chronic daily smoker Gastrointestinal History: Reports: Helicobacter Pylori, Other (See Below) Other Gastrointestinal History: gastroparesis Genitourinary History: Reports: None [employer] History: Reports: Musculoskeletal History: Reports: Back Pain, Chronic Neurological History: Reports: Migraines, Other (See Below) Other Neuro History: "Silent Migraines" Psychiatric History: Reports: Anxiety, Depression Endocrine/Metabolic History: Reports: Diabetes, Type II Other Endocrine/Metabolic History: Pt questions this Dx Hematologic History: Reports: Other (See Below) Other Hematologic History: States "bacterium in blood" Immunologic History: Reports: None Other Immunologic History: states was in the hospital in [place] last summer with blood infection "not sure what it was called" Oncologic (Cancer) History: Reports: Ovarian Dermatologic History: Reports: Eczema - Infectious Disease History Infectious Disease History: Reports: Chicken Pox - Past Surgical History Head Surgeries/Procedures: Reports: None GI Surgical History: Reports: None - History Comment History Comment: Son says she's been evaluated for these sxs in past but doesn' t recall where w/u was done (including CT of abd). No EGD ever done. The h pylori was dx'd by serologies. Social & Family History - Family History Family Medical History: Noncontributory Cardiac: Reports: Hypertension Other Cardiac Family History: Mother, Aunt Respiratory: Reports: COPD Other Respiratory Family Hisory: Uncle GI: Reports: None Neurological: Reports: Other (See Below) Other Neurological Family History: Stroke-Grandmother Endocrine/Metabolic: Reports: Diabetes, type II - Caffeine Use Caffeine Use: Reports: Coffee - Living Situation & Occupation Living situation: Reports: Single Occupation: Unemployed ED ROS GENERAL - Review of Systems Review Of Systems: ROS reveals no pertinent complaints other than HPI. ED EXAM GENERAL NO PERIP PULSE - Physical Exam Exam: See Below (See dictation) Course - Vital Signs Last Recorded V/S: Last Vital Signs Temp 97.8 F 08/31/19 21:00 Pulse 88 08/31/19 19:12 Resp 13 08/31/19 22:00 BP 122/75 08/31/19 22:00 Pulse Ox 97 08/31/19 22:00 - Orders/Labs/Meds Orders: Active Orders 24 hr Category Date Time Status Blood Glucose Check, Bedside [RC] ONETIME Care 08/31/19 17:32 Active EKG Documentation Completion [RC] STAT Care 08/31/19 18:46 Active UA RFX CRISSY AND CULT IF INDIC [URIN] Stat Lab 08/31/19 19:27 Ordered Sodium Chloride 0.9% [Saline Flush] Med 08/31/19 17:32 Active 10 ml FLUSH ASDIRECTED PRN Sodium Chloride 0.9% [Saline Flush] Med 08/31/19 17:32 Active 2.5 ml FLUSH ASDIRECTED PRN Saline Lock Insert [OM.PC] Stat Oth 08/31/19 17:32 Ordered Medication Orders Albuterol/Ipratropium (Duoneb 3.0-0.5 Mg/3 Ml) 3 ml NEB Q4HRRT PRN PRN Reason: Shortness Of Breath/wheezing Enoxaparin Sodium (Lovenox) 40 mg SUBCUT Q24H ANTHONY Last Admin: 08/31/19 21:07 Dose: 40 mg Potassium Chloride 20 meq/ (Premix) 50 mls @ 25 mls/hr IV ONETIME ONE Stop: 08/31/19 22:49 Last Admin: 08/31/19 21:25 Dose: 25 mls/hr Insulin Human Regular 100 unit (/ Sodium Chloride) 100 mls @ 5.5 mls/hr IV TITRATE ANTHONY; Protocol Last Admin: 08/31/19 21:19 Dose: 6 unit/hr, 6 mls/hr Sodium Chloride (Normal Saline) 1,000 mls @ 225 mls/hr IV ASDIRECTED ANTHONY Pantoprazole Sodium (Protonix Iv) 40 mg IVPUSH DAILY ANTHONY Sodium Chloride (Saline Flush) 10 ml FLUSH ASDIRECTED PRN PRN Reason: Keep Vein Open Last Admin: 08/31/19 18:04 Dose: 10 ml Sodium Chloride (Saline Flush) 2.5 ml FLUSH ASDIRECTED PRN PRN Reason: Keep Vein Open Last Admin: 08/31/19 18:04 Dose: 2.5 ml Labs: Laboratory Tests 08/31/19 08/31/19 08/31/19 Range/Units 17:38 17:40 17:40 WBC 8.20 (4.0-11.0) K/uL RBC 4.57 (4.30-5.90) M/uL Hgb 13.6 (12.0-16.0) g/dL Hct 40.4 (36.0-46.0) % MCV 88.4 (80.0-98.0) fL MCH 29.8 (27.0-32.0) pg MCHC 33.7 (31.0-37.0) g/dL RDW Std Deviation 40.7 (28.0-62.0) fl RDW Coeff of [place]edi 13 (11.0-15.0) % Plt Count 249 (150-400) K/uL MPV 13.30 H (7.40-12.00) fL Neut % (Auto) 75.2 (48.0-80.0) % Lymph % (Auto) 16.2 (16.0-40.0) % [place] % (Auto) 6.7 (0.0-15.0) % Eos % (Auto) 1.2 (0.0-7.0) % Baso % (Auto) 0.7 (0.0-1.5) % Neut # (Auto) 6.2 H (1.4-5.7) K/uL Lymph # (Auto) 1.3 (0.6-2.4) K/uL [place] # (Auto) 0.6 (0.0-0.8) K/uL Eos # (Auto) 0.1 (0.0-0.7) K/uL Baso # (Auto) 0.1 (0.0-0.1) K/uL Nucleated RBC % 0.0 /100WBC Nucleated RBCs # 0 K/uL Sodium 124 L (136-145) mmol/L Potassium 4.0 (3.5-5.1) mmol/L Chloride 86 L (98-107) mmol/L Carbon Dioxide 26.7 (21.0-32.0) mmol/L BUN 16 (7.0-18.0) mg/dL Creatinine 1.6 H (0.6-1.0) mg/dL Est Cr Clr Drug Dosing 35.71 mL/min Estimated GFR (MDRD) 33.8 ml/min Glucose 983 H* (74-106) mg/dL POC Glucose > 500 H (60-110) mg/dL Calcium 8.4 L (8.5-10.1) mg/dL Total Bilirubin 0.4 (0.2-1.0) mg/dL AST 26 (15-37) IU/L ALT 28 (14-63) IU/L Alkaline Phosphatase 159 H (46-116) U/L Total Protein 6.4 (6.4-8.2) g/dL Albumin 2.5 L (3.4-5.0) g/dL Globulin 3.9 (2.6-4.0) g/dL Albumin/Globulin Ratio 0.6 L (0.9-1.6) Lipase (73-393) U/L Ethyl Alcohol mg/dL 08/31/19 08/31/19 Range/Units 17:40 17:40 WBC (4.0-11.0) K/uL RBC (4.30-5.90) M/uL Hgb (12.0-16.0) g/dL Hct (36.0-46.0) % MCV (80.0-98.0) fL MCH (27.0-32.0) pg MCHC (31.0-37.0) g/dL RDW Std Deviation (28.0-62.0) fl RDW Coeff of [place] (11.0-15.0) % Plt Count (150-400) K/uL MPV (7.40-12.00) fL Neut % (Auto) (48.0-80.0) % Lymph % (Auto) (16.0-40.0) % [place] % (Auto) (0.0-15.0) % Eos % (Auto) (0.0-7.0) % Baso % (Auto) (0.0-1.5) % Neut # (Auto) (1.4-5.7) K/uL Lymph # (Auto) (0.6-2.4) K/uL [place] # (Auto) (0.0-0.8) K/uL Eos # (Auto) (0.0-0.7) K/uL Baso # (Auto) (0.0-0.1) K/uL Nucleated RBC % /100WBC Nucleated RBCs # K/uL Sodium (136-145) mmol/L Potassium (3.5-5.1) mmol/L Chloride (98-107) mmol/L Carbon Dioxide (21.0-32.0) mmol/L BUN (7.0-18.0) mg/dL Creatinine (0.6-1.0) mg/dL Est Cr Clr Drug Dosing mL/min Estimated GFR (MDRD) ml/min Glucose (74-106) mg/dL POC Glucose (60-110) mg/dL Calcium (8.5-10.1) mg/dL Total Bilirubin (0.2-1.0) mg/dL AST (15-37) IU/L ALT (14-63) IU/L Alkaline Phosphatase (46-116) U/L Total Protein (6.4-8.2) g/dL Albumin (3.4-5.0) g/dL Globulin (2.6-4.0) g/dL Albumin/Globulin Ratio (0.9-1.6) Lipase 154 (73-393) U/L Ethyl Alcohol <3 mg/dL Meds: Medications Generic Name Dose Route Start Last Admin Trade Name Freq PRN Reason Stop Dose Admin Albuterol/Ipratropium 3 ml 08/31/19 20:11 Duoneb 3.0-0.5 Mg/3 Ml NEB Q4HRRT PRN Shortness Of Breath/wheezing Enoxaparin Sodium 40 mg 08/31/19 20:15 08/31/19 21:07 Lovenox SUBCUT 40 mg Q24H ANTHONY Administration Potassium Chloride 20 meq/ 50 mls @ 25 mls/hr 08/31/19 20:50 08/31/19 21:25 Premix IV 08/31/19 22:49 25 mls/hr ONETIME ONE Administration Insulin Human Regular 100 unit 100 mls @ 5.5 mls/hr 08/31/19 21:00 08/31/19 21:19 / Sodium Chloride IV 6 unit/hr TITRATE ANTHONY 6 mls/hr Administration Protocol 5.5 UNIT/HR Sodium Chloride 1,000 mls @ 225 mls/hr 08/31/19 21:45 Normal Saline IV ASDIRECTED ANTHONY Pantoprazole Sodium 40 mg 09/01/19 09:00 Protonix Iv IVPUSH DAILY ANTHONY Sodium Chloride 10 ml 08/31/19 17:32 08/31/19 18:04 Saline Flush FLUSH 10 ml ASDIRECTED PRN Administration Keep Vein Open Sodium Chloride 2.5 ml 08/31/19 17:32 08/31/19 18:04 Saline Flush FLUSH 2.5 ml ASDIRECTED PRN Administration Keep Vein Open Discontinued Medications Generic Name Dose Route Start Last Admin Trade Name Freq PRN Reason Stop Dose Admin Sodium Chloride 1,000 mls @ 999 mls/hr 08/31/19 17:32 08/31/19 18:04 Normal Saline IV 08/31/19 18:32 999 mls/hr STAT ONE Administration Insulin Human Regular 100 unit 100 mls @ 5.5 mls/hr 08/31/19 18:45 08/31/19 19:01 / Sodium Chloride IV 0.1 unit/kg/hr TITRATE ANTHONY 5.5 mls/hr Administration Protocol 0.1 UNIT/KG/HR Sodium Chloride 1,000 mls @ 999 mls/hr 08/31/19 18:51 08/31/19 19:01 Normal Saline IV 08/31/19 19:51 999 mls/hr STAT ONE Administration Sodium Chloride 1,000 mls @ 999 mls/hr 08/31/19 20:15 Normal Saline IV BOLUS ANTHONY Insulin Human Regular 10 unit 08/31/19 17:47 08/31/19 18:05 Novolin R IVPUSH 08/31/19 17:48 10 units ONETIME ONE Administration Protocol Lorazepam 1 mg 08/31/19 17:46 08/31/19 18:04 Ativan IVPUSH 08/31/19 17:47 1 mg ONETIME ONE Administration Ondansetron HCl 4 mg 08/31/19 17:46 08/31/19 18:04 Zofran IVPUSH 08/31/19 17:47 4 mg ONETIME ONE Administration Departure - Departure Time of Disposition: 22:31 Disposition: Admitted As Inpatient 68 Clinical Impression: Noncompliance with medication regimen DKA (diabetic ketoacidosis) Qualifiers: Diabetes mellitus type: type 2 Diabetes mellitus complication detail: without coma Qualified Code(s): E11.10 - Type 2 diabetes mellitus with ketoacidosis without coma - Discharge Information - My Orders Last 24 Hours: My Active Orders 08/31/19 17:32 Blood Glucose Check, Bedside [RC] ONETIME Sodium Chloride 0.9% [Saline Flush] 10 ml FLUSH ASDIRECTED PRN Sodium Chloride 0.9% [Saline Flush] 2.5 ml FLUSH ASDIRECTED PRN Saline Lock Insert [OM.PC] Stat 08/31/19 18:46 EKG Documentation Completion [RC] STAT 08/31/19 19:27 UA RFX CRISSY AND CULT IF INDIC [URIN] Stat - Assessment/Plan Last 24 Hours: My Active Orders 08/31/19 17:32 Blood Glucose Check, Bedside [RC] ONETIME Sodium Chloride 0.9% [Saline Flush] 10 ml FLUSH ASDIRECTED PRN Sodium Chloride 0.9% [Saline Flush] 2.5 ml FLUSH ASDIRECTED PRN Saline Lock Insert [OM.PC] Stat 08/31/19 18:46 EKG Documentation Completion [RC] STAT 08/31/19 19:27 UA RFX CRISSY AND CULT IF INDIC [URIN] Stat
[2019-08-31] MEDS ORDERED: Ondansetron 4 MG/2 ML SDV IVPUSH ONE (17:46)
[2019-08-31] MEDS ORDERED: LORazepam 2 MG/ML SDV IVPUSH ONE (17:46)
[2019-08-31] MEDS ORDERED: Insulin Regular, Human 100 Units/ML 10 ML Vial IVPUSH ONE (17:47)
[2019-08-31 18:29] LABS: CARBON DIOXIDE,CO2 26.7 mmol/L (21.0-32.0)
--- NOTE | 2019-08-31 19:03 | PCM.HP.2 ---
H&P History of Present Illness - General Date of Service: 08/31/19 Admit Problem/Dx: Admission Diagnosis/Problem Admission Diagnosis/Problem Diabetic ketoacidosis Source of Information: Patient History Limitations: Reports: No Limitations - History of Present Illness Initial Comments - Free Text/Narative: Patient is a 54-year-old female who presents to the emergency room with concerns of elevated blood sugar. Patient states that she had been diagnosed with type II diabetic 8 years nack and eventually was switch to insulin (long acting and meal time), patient states that she has not had any anti-diabetic medications in past 4-5 months. Patient states that she was last seen by provider and the residency clinic in March but her insurance ran out at that time and was not able to further refill any of her insulin. Patient c/o generalized loss of appetite, abdominal pain, worsening of her anxiety. Patient sates she lost her mother and her uncle and since than she has not being doing well with her anxiety and has given up on her medical care. Patient denies any fever, chills, headache, change in vision, syncope or near syncope, chest pain, back pain, shortness of breath or cough. Denies any vomiting, diarrhea, constipation or dysuria. Patient was found to be severly hyperglycemic in ER with BS >900, AG was 12, patient refused ABG, no apparent infection suspected. Patient is being admitted for manage of Severe hyperglycemia, and was started on insulin gtt. Vitals in ER: Temp 96.3 F 08/31/19 17:38 Pulse 88 08/31/19 19:12 Resp 12 08/31/19 19:12 BP 146/92 H 08/31/19 19:12 Pulse Ox 98 08/31/19 19:12 Meds administered in ER: Category Date Time Status Admission Status [Patient Status] [ADT] Stat ADT 08/31/19 18:53 Active Blood Glucose Check, Bedside [RC] ONETIME Care 08/31/19 17:32 Active EKG Documentation Completion [RC] STAT Care 08/31/19 18:46 Active DRUG SCREEN, URINE [URCHEM] Stat Lab 08/31/19 18:36 Ordered UA RFX CRISSY AND CULT IF INDIC [URIN] Stat Lab 08/31/19 17:32 Ordered Insulin Regular, Human [NovoLIN R] 100 unit Med 08/31/19 18:45 Active Sodium Chloride 0.9% [Normal Saline] 99 ml IV TITRATE Sodium Chloride 0.9% [Normal Saline] 1,000 ml Med 08/31/19 18:51 Active IV STAT Sodium Chloride 0.9% [Saline Flush] Med 08/31/19 17:32 Active 10 ml FLUSH ASDIRECTED PRN Sodium Chloride 0.9% [Saline Flush] Med 08/31/19 17:32 Active 2.5 ml FLUSH ASDIRECTED PRN Saline Lock Insert [OM.PC] Stat Oth 08/31/19 17:32 Ordered Onset of Symptoms: Reports: Gradual Duration of Symptoms: Reports: Day(s): Location: Reports: Generalized Associated Symptoms: Reports: Malaise, Weakness - Related Data Allergies/Adverse Reactions: Allergies Allergy/AdvReac Type Severity Reaction Status Date / Time latex Allergy Mild Rash Verified 09/01/19 17:39 Sulfa (Sulfonamide Allergy Unknown Airway Verified 09/01/19 17:39 Antibiotics) Tightness sulfur dioxide Allergy Airway Verified 09/01/19 17:39 Tightness Home Medications: Home Meds . 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: Musculoskeletal History: Reports: Back Pain, Chronic Neurological History: Reports: Migraines, Other (See Below) Other Neuro History: "Silent Migraines" Psychiatric History: Reports: Anxiety, Depression Endocrine/Metabolic History: Reports: Diabetes, Type II Other Endocrine/Metabolic History: Pt questions this Dx Hematologic History: Reports: Other (See Below) Other Hematologic History: States "bacterium in blood" Immunologic History: Reports: None Other Immunologic History: states was in the hospital in [place] last summer with blood infection "not sure what it was called" Oncologic (Cancer) History: Reports: Ovarian Dermatologic History: Reports: Eczema - Infectious Disease History Infectious Disease History: Reports: Chicken Pox - Past Surgical History Head Surgeries/Procedures: Reports: None GI Surgical History: Reports: None - History Comment History Comment: Son says she's been evaluated for these sxs in past but doesn' t recall where w/u was done (including CT of abd). No EGD ever done. The h pylori was dx'd by serologies. Social & Family History - Family History Family Medical History: Noncontributory Cardiac: Reports: Hypertension Other Cardiac Family History: Mother, Aunt Respiratory: Reports: COPD Other Respiratory Family Hisory: Uncle GI: Reports: None Neurological: Reports: Other (See Below) Other Neurological Family History: Stroke-Grandmother Endocrine/Metabolic: Reports: Diabetes, type II - Tobacco Use Smoking Status *Q: Current Every Day Smoker Years of Tobacco use: 40 Packs/Tins Daily: 2 - Caffeine Use Caffeine Use: Reports: Coffee - Recreational Drug Use Recreational Drug Use: No - Living Situation & Occupation Living situation: Reports: Single Occupation: Unemployed H&P Review of Systems - Review of Systems: Review Of Systems: See Below General: Reports: Malaise, Weakness, Fatigue, Weight Loss. Denies: Night Sweats , Weight Gain HEENT: Denies: No Symptoms Pulmonary: Denies: No Symptoms Cardiovascular: Denies: No Symptoms Gastrointestinal: Reports: Abdominal Pain. Denies: Nausea, Stool Incontinence, Vomiting Genitourinary: Reports: No Symptoms Musculoskeletal: Reports: No Symptoms. Denies: Leg Pain, Foot Pain Skin: Reports: No Symptoms. Denies: Bruising, Pruritis, Rash Psychiatric: Reports: Anxiety. Denies: Confusion Neurological: Reports: No Symptoms Hematologic/Lymphatic: Denies: Easy Bleeding, Easy Bruising Immunologic: Denies: Anaphylaxis Exam - Exam Exam: See Below - Vital Signs Vital Signs: Last Vital Signs Temp 35.7 C 08/31/19 17:38 Pulse 102 H 08/31/19 17:38 Resp 18 08/31/19 17:38 BP 136/83 08/31/19 17:38 Pulse Ox 100 08/31/19 17:38 Weight: 121 lb 4.068 oz - Exam General: Alert, Oriented, Mild Distress HEENT: Conjunctiva Clear, Nares Patent (dry mucous memebranes) Neck: Trachea Midline Lungs: Clear to Auscultation, Normal Respiratory Effort Cardiovascular: Regular Rate, Regular Rhythm GI/Abdominal Exam: Normal Bowel Sounds, Soft, Non-Tender, No Organomegaly, No Distention, No Abnormal Bruit, No Mass, Pelvis Stable Peripheral Pulses: 3+: Dorsalis Pedis (L), Dorsalis Pedis (R) Skin: Warm, Dry, Intact Psychiatric: Labile Mood, Anxious - Patient Data Lab Results Last 24 hrs: Laboratory Results - last 24 hr 08/31/19 08/31/19 08/31/19 Range/Units 17:38 17:40 17:40 WBC 8.20 (4.0-11.0) K/uL RBC 4.57 (4.30-5.90) M/uL Hgb 13.6 (12.0-16.0) g/dL Hct 40.4 (36.0-46.0) % MCV 88.4 (80.0-98.0) fL MCH 29.8 (27.0-32.0) pg MCHC 33.7 (31.0-37.0) g/dL RDW Std Deviation 40.7 (28.0-62.0) fl RDW Coeff of Kennedi 13 (11.0-15.0) % Plt Count 249 (150-400) K/uL MPV 13.30 H (7.40-12.00) fL Neut % (Auto) 75.2 (48.0-80.0) % Lymph % (Auto) 16.2 (16.0-40.0) % [place] % (Auto) 6.7 (0.0-15.0) % Eos % (Auto) 1.2 (0.0-7.0) % Baso % (Auto) 0.7 (0.0-1.5) % Neut # (Auto) 6.2 H (1.4-5.7) K/uL Lymph # (Auto) 1.3 (0.6-2.4) K/uL [place] # (Auto) 0.6 (0.0-0.8) K/uL Eos # (Auto) 0.1 (0.0-0.7) K/uL Baso # (Auto) 0.1 (0.0-0.1) K/uL Nucleated RBC % 0.0 /100WBC Nucleated RBCs # 0 K/uL Sodium 124 L (136-145) mmol/L Potassium 4.0 (3.5-5.1) mmol/L Chloride 86 L (98-107) mmol/L Carbon Dioxide 26.7 (21.0-32.0) mmol/L BUN 16 (7.0-18.0) mg/dL Creatinine 1.6 H (0.6-1.0) mg/dL Est Cr Clr Drug Dosing 35.71 mL/min Estimated GFR (MDRD) 33.8 ml/min Glucose 983 H* (74-106) mg/dL POC Glucose > 500 H (60-110) mg/dL Calcium 8.4 L (8.5-10.1) mg/dL Total Bilirubin 0.4 (0.2-1.0) mg/dL AST 26 (15-37) IU/L ALT 28 (14-63) IU/L Alkaline Phosphatase 159 H (46-116) U/L Total Protein 6.4 (6.4-8.2) g/dL Albumin 2.5 L (3.4-5.0) g/dL Globulin 3.9 (2.6-4.0) g/dL Albumin/Globulin Ratio 0.6 L (0.9-1.6) Lipase (73-393) U/L Ethyl Alcohol mg/dL 08/31/19 08/31/19 Range/Units 17:40 17:40 WBC (4.0-11.0) K/uL RBC (4.30-5.90) M/uL Hgb (12.0-16.0) g/dL Hct (36.0-46.0) % MCV (80.0-98.0) fL MCH (27.0-32.0) pg MCHC (31.0-37.0) g/dL RDW Std Deviation (28.0-62.0) fl RDW Coeff of Kennedi (11.0-15.0) % Plt Count (150-400) K/uL MPV (7.40-12.00) fL Neut % (Auto) (48.0-80.0) % Lymph % (Auto) (16.0-40.0) % [place] % (Auto) (0.0-15.0) % Eos % (Auto) (0.0-7.0) % Baso % (Auto) (0.0-1.5) % Neut # (Auto) (1.4-5.7) K/uL Lymph # (Auto) (0.6-2.4) K/uL [place] # (Auto) (0.0-0.8) K/uL Eos # (Auto) (0.0-0.7) K/uL Baso # (Auto) (0.0-0.1) K/uL Nucleated RBC % /100WBC Nucleated RBCs # K/uL Sodium (136-145) mmol/L Potassium (3.5-5.1) mmol/L Chloride (98-107) mmol/L Carbon Dioxide (21.0-32.0) mmol/L BUN (7.0-18.0) mg/dL Creatinine (0.6-1.0) mg/dL Est Cr Clr Drug Dosing mL/min Estimated GFR (MDRD) ml/min Glucose (74-106) mg/dL POC Glucose (60-110) mg/dL Calcium (8.5-10.1) mg/dL Total Bilirubin (0.2-1.0) mg/dL AST (15-37) IU/L ALT (14-63) IU/L Alkaline Phosphatase (46-116) U/L Total Protein (6.4-8.2) g/dL Albumin (3.4-5.0) g/dL Globulin (2.6-4.0) g/dL Albumin/Globulin Ratio (0.9-1.6) Lipase 154 (73-393) U/L Ethyl Alcohol <3 mg/dL Result Diagrams: 09/02/19 05:56 09/02/19 05:56 - Problem List (1) Hyperglycemia SNOMED Code(s): 53218982 ICD Code: R73.9 - HYPERGLYCEMIA, UNSPECIFIED Status: Acute (2) Uncontrolled diabetes mellitus SNOMED Code(s): 43087625, 665151741 ICD Code: E11.65 - TYPE 2 DIABETES MELLITUS WITH HYPERGLYCEMIA Status: Chronic Qualifiers: Diabetes mellitus type: type 2 (3) Anxiety SNOMED Code(s): 99293823 ICD Code: F41.9 - ANXIETY DISORDER, UNSPECIFIED Status: Chronic (4) History of medication noncompliance SNOMED Code(s): 818530686 ICD Code: Z91.14 - PATIENT'S OTHER NONCOMPLIANCE WITH MEDICATION REGIMEN Status: Chronic Problem List Initiated/Reviewed/Updated: Yes Orders Last 24hrs: Active Orders 24 hr Category Date Time Status Admission Status [Patient Status] [ADT] Stat ADT 08/31/19 18:53 Active Blood Glucose Check, Bedside [RC] ONETIME Care 08/31/19 17:32 Active EKG Documentation Completion [RC] STAT Care 08/31/19 18:46 Active DRUG SCREEN, URINE [URCHEM] Stat Lab 08/31/19 18:36 Ordered UA RFX CRISSY AND CULT IF INDIC [URIN] Stat Lab 08/31/19 17:32 Ordered Insulin Regular, Human [NovoLIN R] 100 unit Med 08/31/19 18:45 Active Sodium Chloride 0.9% [Normal Saline] 99 ml IV TITRATE Sodium Chloride 0.9% [Normal Saline] 1,000 ml Med 08/31/19 18:51 Active IV STAT Sodium Chloride 0.9% [Saline Flush] Med 08/31/19 17:32 Active 10 ml FLUSH ASDIRECTED PRN Sodium Chloride 0.9% [Saline Flush] Med 08/31/19 17:32 Active 2.5 ml FLUSH ASDIRECTED PRN Saline Lock Insert [OM.PC] Stat Oth 08/31/19 17:32 Ordered Medication Orders Insulin Human Regular 100 unit (/ Sodium Chloride) 100 mls @ 5.5 mls/hr IV TITRATE ANTHONY; Protocol Sodium Chloride (Normal Saline) 1,000 mls @ 999 mls/hr IV STAT ONE Stop: 08/31/19 19:51 Sodium Chloride (Saline Flush) 10 ml FLUSH ASDIRECTED PRN PRN Reason: Keep Vein Open Last Admin: 08/31/19 18:04 Dose: 10 ml Sodium Chloride (Saline Flush) 2.5 ml FLUSH ASDIRECTED PRN PRN Reason: Keep Vein Open Last Admin: 08/31/19 18:04 Dose: 2.5 ml Assessment/Plan Comment:: Patient came in with severely elevated blood sugars>900, no Anion gap, no acidosis based on Bicarb(patient refused ABG) Patient started on insulin gtt for hyperglycemic Will cont IV hydration with NS and replete K as indicated Will frequent POC glucose based on protocol Will obtain Q4H BMP f/u on mag, phos, UA f/u on blood ketones (beta-hydroxy is a send out per lab) Will switch fluids based on blood sugar levels in next few hours NPO for now DVT ppx Will advance ambulation as tolerated cont to monitor closely Ativan as needed for severe anxiety patient counseled about medication compliance in detail
[2019-08-31] MEDS ORDERED: Albuterol/Ipratropium 3.0-0.5 MG/3 ML Neb Soln NEB PRN (20:11)
[2019-08-31] MEDS ORDERED: Sodium Chloride 0.9% 1,000 ML IV SCH ×2 (20:15→21:45)
[2019-08-31] MEDS ORDERED: Potassium Chloride Riders 20 MEQ in Premix Bag 1 BAG IV ONE (20:50)
[2019-08-31] MEDS: Enoxaparin 40 MG/0.4 ML Syringe SUBCUT SCH (21:07)
[2019-08-31 21:43] LABS: CARBON DIOXIDE,CO2 29.2 mmol/L (21.0-32.0); POTASSIUM,K 3.8 mmol/L (3.5-5.1)
--- NOTE | 2019-08-31 21:45 | PN ---
THC Physician - Brief Progress [id number]/30/2019 21:43[facility] Rhianna jensen, RILEY - IVAN (LONNIE) - [facility]CHELL SCHMIDTDericDate of Service 08/31/2019 21:43HPI/Events o f Note Brief new admit note:54 yr old female admitted for Hyperglycemia from her DM, not taking Insul ine for few days.Received 2 lit NS , on Insuline drip.Video:VS stable.Discussed with bed side RN over phone.Data:reviewed.A/P:1. Hyperglycemia: Glucose > 900, now down to 415 on Insulin drip. Co2 was ok . no sepsis or sirs.2. CARLOS EDUARDO/Psuedohyponatremia- continue current care.- switch to D5half NS when Gluco se < 200.- on Lovenox sq as VTE prophylaxis.- aspiration precautions.Interventions Major-Acute renal failure - evaluation and management, Hyperglycemia - active titration of insulin therapyIntermediate- Best-practice therapies (e.g. VTE, beta cesar, etc.), Communication with other healthcare providers and/or family, Diagnostic test evaluation, Electrolyte abnormality - evaluation and managementElectr onically Signed by: ALICIA HARRINGTON) on 08/31/2019 21:44
--- NOTE | 2019-09-01 00:27 | PN ---
THC Physician - Brief Progress [id number]/01/2019 00:23[facility] Rhianna Story, RILEY - IVAN (LONNIE) - [facility]LL SCHMIDTDericDate of Service 09/01/2019 00:23HPI/Events o f Note Bed side RN called back, Glucose < 180.Not a DKA patient. not on Insuline for some time, does not know how much she takes at home.Plan:- Lantus 10 units sub cutaneous now.- Novolog regular slidi ng scale AC and HS- Blood sugar check at 4 am , then AC and HS- Stop NS- D5half NS at 75 ml/hr for 4 hrs. - can start oral liquids and advance as tolerated if don't have nausea or pain.Interventions Int ermediate-Hyperglycemia - evaluation and treatmentMinor-Communication with other healthcare providers and/or family
[2019-09-01] MEDS ORDERED: Insulin Glargine,Human Rec. Analog 100 Units/ML 3 ML Pen SUBCUT ONE (00:37)
[2019-09-01] MEDS ORDERED: Dextrose 5%-0.45% NaCl 1,000 ML IV SCH ×2 (00:45→05:00)
[2019-09-01 01:26] LABS: POTASSIUM,K 3.4 mmol/L (3.5-5.1)
--- NOTE | 2019-09-01 03:11 | PN ---
THC Physician - Brief Progress [id number]/01/2019 03:08[facility] camilaRhianna, RILEY - IVAN (LONNIE) - [facility] MITCHELL J.Date of Service 09/01/2019 03:08HPI/Events o f Note K 3.4, creatinine normal. BG 114.Plan:Potassium chloride 10 meq every hour IV x 4 doses. Follo w BMP at 8 am. Follow Magnesium and phosphorous at 8 AM.Interventions Minor-Electrolyte abnormality - evaluation and management
[2019-09-01] MEDS ORDERED: Potassium Chloride Riders 40 MEQ in Premix Bag 1 BAG IV ONE (04:25)
[2019-09-01 06:17] LABS: CARBON DIOXIDE,CO2 29.7 mmol/L (21.0-32.0); POTASSIUM,K 3.6 mmol/L (3.5-5.1)
--- NOTE | 2019-09-01 08:34 | PCM.PN ---
- General Info Date of Service: 09/01/19 Admission Dx/Problem (Free Text): Admission Diagnosis/Problem Admission Diagnosis/Problem Diabetic ketoacidosis Subjective Update: Patient seen and examined at bedside, no acute distress, feels better. Tolerated breakfast, Slight abdominal discomfort but no N/V. Functional Status: Reports: Tolerating Diet - Review of Systems General: Denies: Fever, Weakness, Fatigue HEENT: Denies: Contact Lenses, Dysphasia, Ear Pain Pulmonary: Denies: Shortness of Breath, Pleuritic Chest Pain Cardiovascular: Denies: Chest Pain, Palpitations Gastrointestinal: Denies: Abdominal Pain, Constipation, Difficulty Swallowing Genitourinary: Denies: Dysuria, Frequency Skin: Denies: Cyanosis, Jaundice Psychiatric: Denies: Confusion, Depression - Patient Data Vitals - Most Recent: Last Vital Signs Temp 36.3 C 09/01/19 08:00 Pulse 88 08/31/19 19:12 Resp 13 09/01/19 08:00 BP 155/95 H 09/01/19 08:00 Pulse Ox 95 09/01/19 08:00 Weight - Most Recent: 121 lb 4.068 oz I&O - Last 24 Hours: Intake & Output 08/31/19 09/01/19 09/01/19 22:59 06:59 14:59 Intake Total 1443 Output Total 800 Balance 643 Lab Results Last 24 Hours: Laboratory Results - last 24 hr 08/31/19 08/31/19 08/31/19 Range/Units 17:38 17:40 17:40 WBC 8.20 (4.0-11.0) K/uL RBC 4.57 (4.30-5.90) M/uL Hgb 13.6 (12.0-16.0) g/dL Hct 40.4 (36.0-46.0) % MCV 88.4 (80.0-98.0) fL MCH 29.8 (27.0-32.0) pg MCHC 33.7 (31.0-37.0) g/dL RDW Std Deviation 40.7 (28.0-62.0) fl RDW Coeff of Kennedi 13 (11.0-15.0) % Plt Count 249 (150-400) K/uL MPV 13.30 H (7.40-12.00) fL Neut % (Auto) 75.2 (48.0-80.0) % Lymph % (Auto) 16.2 (16.0-40.0) % Hawkins % (Auto) 6.7 (0.0-15.0) % Eos % (Auto) 1.2 (0.0-7.0) % Baso % (Auto) 0.7 (0.0-1.5) % Neut # (Auto) 6.2 H (1.4-5.7) K/uL Lymph # (Auto) 1.3 (0.6-2.4) K/uL Hawkins # (Auto) 0.6 (0.0-0.8) K/uL Eos # (Auto) 0.1 (0.0-0.7) K/uL Baso # (Auto) 0.1 (0.0-0.1) K/uL Nucleated RBC % 0.0 /100WBC Nucleated RBCs # 0 K/uL Sodium 124 L (136-145) mmol/L Potassium 4.0 (3.5-5.1) mmol/L Chloride 86 L (98-107) mmol/L Carbon Dioxide 26.7 (21.0-32.0) mmol/L BUN 16 (7.0-18.0) mg/dL Creatinine 1.6 H (0.6-1.0) mg/dL Est Cr Clr Drug Dosing 35.71 mL/min Estimated GFR (MDRD) 33.8 ml/min Glucose 983 H* (74-106) mg/dL POC Glucose > 500 H (60-110) mg/dL Calcium 8.4 L (8.5-10.1) mg/dL Phosphorus (2.6-4.7) mg/dL Magnesium (1.8-2.4) mg/dL Total Bilirubin 0.4 (0.2-1.0) mg/dL AST 26 (15-37) IU/L ALT 28 (14-63) IU/L Alkaline Phosphatase 159 H (46-116) U/L Troponin I (0.000-0.056) ng/mL Total Protein 6.4 (6.4-8.2) g/dL Albumin 2.5 L (3.4-5.0) g/dL Globulin 3.9 (2.6-4.0) g/dL Albumin/Globulin Ratio 0.6 L (0.9-1.6) Lipase (73-393) U/L Urine Opiates Screen (NEGATIVE) Ur Oxycodone Screen (NEGATIVE) Urine Methadone Screen (NEGATIVE) Ur Barbiturates Screen (NEGATIVE) Ur Phencyclidine Scrn (NEGATIVE) Ur Amphetamine Screen (NEGATIVE) U Methamphetamines Scrn (NEGATIVE) U Benzodiazepines Scrn (NEGATIVE) U Cocaine Metab Screen (NEGATIVE) U Marijuana (THC) Screen (NEGATIVE) Ethyl Alcohol mg/dL Ketones (NEG) 08/31/19 08/31/19 08/31/19 Range/Units 17:40 17:40 19:05 WBC (4.0-11.0) K/uL RBC (4.30-5.90) M/uL Hgb (12.0-16.0) g/dL Hct (36.0-46.0) % MCV (80.0-98.0) fL MCH (27.0-32.0) pg MCHC (31.0-37.0) g/dL RDW Std Deviation (28.0-62.0) fl RDW Coeff of Kennedi (11.0-15.0) % Plt Count (150-400) K/uL MPV (7.40-12.00) fL Neut % (Auto) (48.0-80.0) % Lymph % (Auto) (16.0-40.0) % Hawkins % (Auto) (0.0-15.0) % Eos % (Auto) (0.0-7.0) % Baso % (Auto) (0.0-1.5) % Neut # (Auto) (1.4-5.7) K/uL Lymph # (Auto) (0.6-2.4) K/uL Hawkins # (Auto) (0.0-0.8) K/uL Eos # (Auto) (0.0-0.7) K/uL Baso # (Auto) (0.0-0.1) K/uL Nucleated RBC % /100WBC Nucleated RBCs # K/uL Sodium (136-145) mmol/L Potassium (3.5-5.1) mmol/L Chloride (98-107) mmol/L Carbon Dioxide (21.0-32.0) mmol/L BUN (7.0-18.0) mg/dL Creatinine (0.6-1.0) mg/dL Est Cr Clr Drug Dosing mL/min Estimated GFR (MDRD) ml/min Glucose (74-106) mg/dL POC Glucose > 500 H (60-110) mg/dL Calcium (8.5-10.1) mg/dL Phosphorus (2.6-4.7) mg/dL Magnesium (1.8-2.4) mg/dL Total Bilirubin (0.2-1.0) mg/dL AST (15-37) IU/L ALT (14-63) IU/L Alkaline Phosphatase (46-116) U/L Troponin I (0.000-0.056) ng/mL Total Protein (6.4-8.2) g/dL Albumin (3.4-5.0) g/dL Globulin (2.6-4.0) g/dL Albumin/Globulin Ratio (0.9-1.6) Lipase 154 (73-393) U/L Urine Opiates Screen (NEGATIVE) Ur Oxycodone Screen (NEGATIVE) Urine Methadone Screen (NEGATIVE) Ur Barbiturates Screen (NEGATIVE) Ur Phencyclidine Scrn (NEGATIVE) Ur Amphetamine Screen (NEGATIVE) U Methamphetamines Scrn (NEGATIVE) U Benzodiazepines Scrn (NEGATIVE) U Cocaine Metab Screen (NEGATIVE) U Marijuana (THC) Screen (NEGATIVE) Ethyl Alcohol <3 mg/dL Ketones (NEG) 08/31/19 08/31/19 08/31/19 Range/Units 19:25 19:58 21:12 WBC (4.0-11.0) K/uL RBC (4.30-5.90) M/uL Hgb (12.0-16.0) g/dL Hct (36.0-46.0) % MCV (80.0-98.0) fL MCH (27.0-32.0) pg MCHC (31.0-37.0) g/dL RDW Std Deviation (28.0-62.0) fl RDW Coeff of Kennedi (11.0-15.0) % Plt Count (150-400) K/uL MPV (7.40-12.00) fL Neut % (Auto) (48.0-80.0) % Lymph % (Auto) (16.0-40.0) % Hawkins % (Auto) (0.0-15.0) % Eos % (Auto) (0.0-7.0) % Baso % (Auto) (0.0-1.5) % Neut # (Auto) (1.4-5.7) K/uL Lymph # (Auto) (0.6-2.4) K/uL Hawkins # (Auto) (0.0-0.8) K/uL Eos # (Auto) (0.0-0.7) K/uL Baso # (Auto) (0.0-0.1) K/uL Nucleated RBC % /100WBC Nucleated RBCs # K/uL Sodium (136-145) mmol/L Potassium (3.5-5.1) mmol/L Chloride (98-107) mmol/L Carbon Dioxide (21.0-32.0) mmol/L BUN (7.0-18.0) mg/dL Creatinine (0.6-1.0) mg/dL Est Cr Clr Drug Dosing mL/min Estimated GFR (MDRD) ml/min Glucose (74-106) mg/dL POC Glucose > 500 H 414 H (60-110) mg/dL Calcium (8.5-10.1) mg/dL Phosphorus (2.6-4.7) mg/dL Magnesium (1.8-2.4) mg/dL Total Bilirubin (0.2-1.0) mg/dL AST (15-37) IU/L ALT (14-63) IU/L Alkaline Phosphatase (46-116) U/L Troponin I (0.000-0.056) ng/mL Total Protein (6.4-8.2) g/dL Albumin (3.4-5.0) g/dL Globulin (2.6-4.0) g/dL Albumin/Globulin Ratio (0.9-1.6) Lipase (73-393) U/L Urine Opiates Screen NEGATIVE (NEGATIVE) Ur Oxycodone Screen NEGATIVE (NEGATIVE) Urine Methadone Screen NEGATIVE (NEGATIVE) Ur Barbiturates Screen NEGATIVE (NEGATIVE) Ur Phencyclidine Scrn NEGATIVE (NEGATIVE) Ur Amphetamine Screen NEGATIVE (NEGATIVE) U Methamphetamines Scrn NEGATIVE (NEGATIVE) U Benzodiazepines Scrn NEGATIVE (NEGATIVE) U Cocaine Metab Screen NEGATIVE (NEGATIVE) U Marijuana (THC) Screen NEGATIVE (NEGATIVE) Ethyl Alcohol mg/dL Ketones (NEG) 08/31/19 08/31/19 08/31/19 Range/Units 21:15 21:15 21:15 WBC (4.0-11.0) K/uL RBC (4.30-5.90) M/uL Hgb (12.0-16.0) g/dL Hct (36.0-46.0) % MCV (80.0-98.0) fL MCH (27.0-32.0) pg MCHC (31.0-37.0) g/dL RDW Std Deviation (28.0-62.0) fl RDW Coeff of Kennedi (11.0-15.0) % Plt Count (150-400) K/uL MPV (7.40-12.00) fL Neut % (Auto) (48.0-80.0) % Lymph % (Auto) (16.0-40.0) % Hawkins % (Auto) (0.0-15.0) % Eos % (Auto) (0.0-7.0) % Baso % (Auto) (0.0-1.5) % Neut # (Auto) (1.4-5.7) K/uL Lymph # (Auto) (0.6-2.4) K/uL Hawkins # (Auto) (0.0-0.8) K/uL Eos # (Auto) (0.0-0.7) K/uL Baso # (Auto) (0.0-0.1) K/uL Nucleated RBC % /100WBC Nucleated RBCs # K/uL Sodium 135 L (136-145) mmol/L Potassium 3.8 (3.5-5.1) mmol/L Chloride 98 (98-107) mmol/L Carbon Dioxide 29.2 (21.0-32.0) mmol/L BUN 15 (7.0-18.0) mg/dL Creatinine 1.3 H (0.6-1.0) mg/dL Est Cr Clr Drug Dosing 43.95 mL/min Estimated GFR (MDRD) 43.0 ml/min Glucose 444 H (74-106) mg/dL POC Glucose (60-110) mg/dL Calcium 8.0 L (8.5-10.1) mg/dL Phosphorus (2.6-4.7) mg/dL Magnesium 1.8 (1.8-2.4) mg/dL Total Bilirubin (0.2-1.0) mg/dL AST (15-37) IU/L ALT (14-63) IU/L Alkaline Phosphatase (46-116) U/L Troponin I < 0.050 (0.000-0.056) ng/mL Total Protein (6.4-8.2) g/dL Albumin (3.4-5.0) g/dL Globulin (2.6-4.0) g/dL Albumin/Globulin Ratio (0.9-1.6) Lipase (73-393) U/L Urine Opiates Screen (NEGATIVE) Ur Oxycodone Screen (NEGATIVE) Urine Methadone Screen (NEGATIVE) Ur Barbiturates Screen (NEGATIVE) Ur Phencyclidine Scrn (NEGATIVE) Ur Amphetamine Screen (NEGATIVE) U Methamphetamines Scrn (NEGATIVE) U Benzodiazepines Scrn (NEGATIVE) U Cocaine Metab Screen (NEGATIVE) U Marijuana (THC) Screen (NEGATIVE) Ethyl Alcohol mg/dL Ketones (NEG) 08/31/19 08/31/19 08/31/19 Range/Units 21:15 21:15 22:45 WBC (4.0-11.0) K/uL RBC (4.30-5.90) M/uL Hgb (12.0-16.0) g/dL Hct (36.0-46.0) % MCV (80.0-98.0) fL MCH (27.0-32.0) pg MCHC (31.0-37.0) g/dL RDW Std Deviation (28.0-62.0) fl RDW Coeff of Kennedi (11.0-15.0) % Plt Count (150-400) K/uL MPV (7.40-12.00) fL Neut % (Auto) (48.0-80.0) % Lymph % (Auto) (16.0-40.0) % Hawkins % (Auto) (0.0-15.0) % Eos % (Auto) (0.0-7.0) % Baso % (Auto) (0.0-1.5) % Neut # (Auto) (1.4-5.7) K/uL Lymph # (Auto) (0.6-2.4) K/uL Hawkins # (Auto) (0.0-0.8) K/uL Eos # (Auto) (0.0-0.7) K/uL Baso # (Auto) (0.0-0.1) K/uL Nucleated RBC % /100WBC Nucleated RBCs # K/uL Sodium (136-145) mmol/L Potassium (3.5-5.1) mmol/L Chloride (98-107) mmol/L Carbon Dioxide (21.0-32.0) mmol/L BUN (7.0-18.0) mg/dL Creatinine (0.6-1.0) mg/dL Est Cr Clr Drug Dosing mL/min Estimated GFR (MDRD) ml/min Glucose (74-106) mg/dL POC Glucose 228 H (60-110) mg/dL Calcium (8.5-10.1) mg/dL Phosphorus 2.5 L (2.6-4.7) mg/dL Magnesium (1.8-2.4) mg/dL Total Bilirubin (0.2-1.0) mg/dL AST (15-37) IU/L ALT (14-63) IU/L Alkaline Phosphatase (46-116) U/L Troponin I (0.000-0.056) ng/mL Total Protein (6.4-8.2) g/dL Albumin (3.4-5.0) g/dL Globulin (2.6-4.0) g/dL Albumin/Globulin Ratio (0.9-1.6) Lipase (73-393) U/L Urine Opiates Screen (NEGATIVE) Ur Oxycodone Screen (NEGATIVE) Urine Methadone Screen (NEGATIVE) Ur Barbiturates Screen (NEGATIVE) Ur Phencyclidine Scrn (NEGATIVE) Ur Amphetamine Screen (NEGATIVE) U Methamphetamines Scrn (NEGATIVE) U Benzodiazepines Scrn (NEGATIVE) U Cocaine Metab Screen (NEGATIVE) U Marijuana (THC) Screen (NEGATIVE) Ethyl Alcohol mg/dL Ketones NEGATIVE (NEG) 09/01/19 09/01/19 09/01/19 Range/Units 00:07 00:59 01:05 WBC (4.0-11.0) K/uL RBC (4.30-5.90) M/uL Hgb (12.0-16.0) g/dL Hct (36.0-46.0) % MCV (80.0-98.0) fL MCH (27.0-32.0) pg MCHC (31.0-37.0) g/dL RDW Std Deviation (28.0-62.0) fl RDW Coeff of Kennedi (11.0-15.0) % Plt Count (150-400) K/uL MPV (7.40-12.00) fL Neut % (Auto) (48.0-80.0) % Lymph % (Auto) (16.0-40.0) % Hawkins % (Auto) (0.0-15.0) % Eos % (Auto) (0.0-7.0) % Baso % (Auto) (0.0-1.5) % Neut # (Auto) (1.4-5.7) K/uL Lymph # (Auto) (0.6-2.4) K/uL Hawkins # (Auto) (0.0-0.8) K/uL Eos # (Auto) (0.0-0.7) K/uL Baso # (Auto) (0.0-0.1) K/uL Nucleated RBC % /100WBC Nucleated RBCs # K/uL Sodium 139 (136-145) mmol/L Potassium 3.4 L (3.5-5.1) mmol/L Chloride 102 (98-107) mmol/L Carbon Dioxide 32.0 (21.0-32.0) mmol/L BUN 13 (7.0-18.0) mg/dL Creatinine 1.1 H (0.6-1.0) mg/dL Est Cr Clr Drug Dosing 51.94 mL/min Estimated GFR (MDRD) 52.2 ml/min Glucose 114 H (74-106) mg/dL POC Glucose 133 H 107 (60-110) mg/dL Calcium 7.8 L (8.5-10.1) mg/dL Phosphorus (2.6-4.7) mg/dL Magnesium (1.8-2.4) mg/dL Total Bilirubin (0.2-1.0) mg/dL AST (15-37) IU/L ALT (14-63) IU/L Alkaline Phosphatase (46-116) U/L Troponin I (0.000-0.056) ng/mL Total Protein (6.4-8.2) g/dL Albumin (3.4-5.0) g/dL Globulin (2.6-4.0) g/dL Albumin/Globulin Ratio (0.9-1.6) Lipase (73-393) U/L Urine Opiates Screen (NEGATIVE) Ur Oxycodone Screen (NEGATIVE) Urine Methadone Screen (NEGATIVE) Ur Barbiturates Screen (NEGATIVE) Ur Phencyclidine Scrn (NEGATIVE) Ur Amphetamine Screen (NEGATIVE) U Methamphetamines Scrn (NEGATIVE) U Benzodiazepines Scrn (NEGATIVE) U Cocaine Metab Screen (NEGATIVE) U Marijuana (THC) Screen (NEGATIVE) Ethyl Alcohol mg/dL Ketones (NEG) 09/01/19 09/01/19 09/01/19 Range/Units 03:59 05:22 05:22 WBC 7.85 (4.0-11.0) K/uL RBC 4.25 L (4.30-5.90) M/uL Hgb 12.5 (12.0-16.0) g/dL Hct 36.3 (36.0-46.0) % MCV 85.4 (80.0-98.0) fL MCH 29.4 (27.0-32.0) pg MCHC 34.4 (31.0-37.0) g/dL RDW Std Deviation 39.7 (28.0-62.0) fl RDW Coeff of Kennedi 13 (11.0-15.0) % Plt Count 237 (150-400) K/uL MPV 13.00 H (7.40-12.00) fL Neut % (Auto) 50.0 (48.0-80.0) % Lymph % (Auto) 41.7 H (16.0-40.0) % Hawkins % (Auto) 4.6 (0.0-15.0) % Eos % (Auto) 3.1 (0.0-7.0) % Baso % (Auto) 0.6 (0.0-1.5) % Neut # (Auto) 3.9 (1.4-5.7) K/uL Lymph # (Auto) 3.3 H (0.6-2.4) K/uL Hawkins # (Auto) 0.4 (0.0-0.8) K/uL Eos # (Auto) 0.2 (0.0-0.7) K/uL Baso # (Auto) 0.1 (0.0-0.1) K/uL Nucleated RBC % 0.0 /100WBC Nucleated RBCs # 0 K/uL Sodium (136-145) mmol/L Potassium (3.5-5.1) mmol/L Chloride (98-107) mmol/L Carbon Dioxide (21.0-32.0) mmol/L BUN (7.0-18.0) mg/dL Creatinine (0.6-1.0) mg/dL Est Cr Clr Drug Dosing mL/min Estimated GFR (MDRD) ml/min Glucose (74-106) mg/dL POC Glucose 141 H (60-110) mg/dL Calcium (8.5-10.1) mg/dL Phosphorus 2.6 (2.6-4.7) mg/dL Magnesium 1.7 L (1.8-2.4) mg/dL Total Bilirubin (0.2-1.0) mg/dL AST (15-37) IU/L ALT (14-63) IU/L Alkaline Phosphatase (46-116) U/L Troponin I (0.000-0.056) ng/mL Total Protein (6.4-8.2) g/dL Albumin (3.4-5.0) g/dL Globulin (2.6-4.0) g/dL Albumin/Globulin Ratio (0.9-1.6) Lipase (73-393) U/L Urine Opiates Screen (NEGATIVE) Ur Oxycodone Screen (NEGATIVE) Urine Methadone Screen (NEGATIVE) Ur Barbiturates Screen (NEGATIVE) Ur Phencyclidine Scrn (NEGATIVE) Ur Amphetamine Screen (NEGATIVE) U Methamphetamines Scrn (NEGATIVE) U Benzodiazepines Scrn (NEGATIVE) U Cocaine Metab Screen (NEGATIVE) U Marijuana (THC) Screen (NEGATIVE) Ethyl Alcohol mg/dL Ketones (NEG) 09/01/19 09/01/19 Range/Units 05:22 07:40 WBC (4.0-11.0) K/uL RBC (4.30-5.90) M/uL Hgb (12.0-16.0) g/dL Hct (36.0-46.0) % MCV (80.0-98.0) fL MCH (27.0-32.0) pg MCHC (31.0-37.0) g/dL RDW Std Deviation (28.0-62.0) fl RDW Coeff of Kennedi (11.0-15.0) % Plt Count (150-400) K/uL MPV (7.40-12.00) fL Neut % (Auto) (48.0-80.0) % Lymph % (Auto) (16.0-40.0) % Hawkins % (Auto) (0.0-15.0) % Eos % (Auto) (0.0-7.0) % Baso % (Auto) (0.0-1.5) % Neut # (Auto) (1.4-5.7) K/uL Lymph # (Auto) (0.6-2.4) K/uL Hawkins # (Auto) (0.0-0.8) K/uL Eos # (Auto) (0.0-0.7) K/uL Baso # (Auto) (0.0-0.1) K/uL Nucleated RBC % /100WBC Nucleated RBCs # K/uL Sodium 138 (136-145) mmol/L Potassium 3.6 (3.5-5.1) mmol/L Chloride 102 (98-107) mmol/L Carbon Dioxide 29.7 (21.0-32.0) mmol/L BUN 14 (7.0-18.0) mg/dL Creatinine 1.1 H (0.6-1.0) mg/dL Est Cr Clr Drug Dosing 51.94 mL/min Estimated GFR (MDRD) 52.2 ml/min Glucose 168 H (74-106) mg/dL POC Glucose 182 H (60-110) mg/dL Calcium 7.8 L (8.5-10.1) mg/dL Phosphorus (2.6-4.7) mg/dL Magnesium (1.8-2.4) mg/dL Total Bilirubin (0.2-1.0) mg/dL AST (15-37) IU/L ALT (14-63) IU/L Alkaline Phosphatase (46-116) U/L Troponin I (0.000-0.056) ng/mL Total Protein (6.4-8.2) g/dL Albumin (3.4-5.0) g/dL Globulin (2.6-4.0) g/dL Albumin/Globulin Ratio (0.9-1.6) Lipase (73-393) U/L Urine Opiates Screen (NEGATIVE) Ur Oxycodone Screen (NEGATIVE) Urine Methadone Screen (NEGATIVE) Ur Barbiturates Screen (NEGATIVE) Ur Phencyclidine Scrn (NEGATIVE) Ur Amphetamine Screen (NEGATIVE) U Methamphetamines Scrn (NEGATIVE) U Benzodiazepines Scrn (NEGATIVE) U Cocaine Metab Screen (NEGATIVE) U Marijuana (THC) Screen (NEGATIVE) Ethyl Alcohol mg/dL Ketones (NEG) Med Orders - Current: Current Medications Albuterol/Ipratropium (Duoneb 3.0-0.5 Mg/3 Ml) 3 ml NEB Q4HRRT PRN PRN Reason: Shortness Of Breath/wheezing Enoxaparin Sodium (Lovenox) 40 mg SUBCUT Q24H ANTHONY Last Admin: 08/31/19 21:07 Dose: 40 mg Dextrose/Sodium Chloride (Dextrose 5%-1/2 Ns) 1,000 mls @ 75 mls/hr IV ASDIRECTED ANTHONY Stop: 09/01/19 09:01 Last Admin: 09/01/19 05:08 Dose: 75 mls/hr Insulin Aspart (Novolog) 0 unit SUBCUT ACBED ANTHONY; Protocol Insulin Aspart (Novolog) 3 unit SUBCUT TIDAC [facility] Insulin Glargine (Lantus Solostar) 10 units SUBCUT BEDTIME ANTHONY Pantoprazole Sodium (Protonix Iv) 40 mg IVPUSH DAILY [facility] Sodium Chloride (Saline Flush) 10 ml FLUSH ASDIRECTED PRN PRN Reason: Keep Vein Open Last Admin: 08/31/19 18:04 Dose: 10 ml Sodium Chloride (Saline Flush) 2.5 ml FLUSH ASDIRECTED PRN PRN Reason: Keep Vein Open Last Admin: 08/31/19 18:04 Dose: 2.5 ml Discontinued Medications Sodium Chloride (Normal Saline) 1,000 mls @ 999 mls/hr IV STAT ONE Stop: 08/31/19 18:32 Last Admin: 08/31/19 18:04 Dose: 999 mls/hr Insulin Human Regular 100 unit (/ Sodium Chloride) 100 mls @ 5.5 mls/hr IV TITRATE ANTHONY; Protocol Last Admin: 08/31/19 19:01 Dose: 0.1 unit/kg/hr, 5.5 mls/hr Sodium Chloride (Normal Saline) 1,000 mls @ 999 mls/hr IV STAT ONE Stop: 08/31/19 19:51 Last Admin: 08/31/19 19:01 Dose: 999 mls/hr Sodium Chloride (Normal Saline) 1,000 mls @ 999 mls/hr IV BOLUS ANTHONY Potassium Chloride 20 meq/ (Premix) 50 mls @ 25 mls/hr IV ONETIME ONE Stop: 08/31/19 22:49 Last Admin: 08/31/19 21:25 Dose: 25 mls/hr Insulin Human Regular 100 unit (/ Sodium Chloride) 100 mls @ 5.5 mls/hr IV TITRATE ANTHONY; Protocol Last Titration: 09/01/19 01:31 Dose: 0 unit/hr, 0 mls/hr Sodium Chloride (Normal Saline) 1,000 mls @ 225 mls/hr IV ASDIRECTED ANTHONY Last Admin: 08/31/19 23:50 Dose: 225 mls/hr Dextrose/Sodium Chloride (Dextrose 5%-1/2 Ns) 1,000 mls @ 75 mls/hr IV ASDIRECTED ANTHONY Stop: 09/01/19 04:46 Last Admin: 09/01/19 00:49 Dose: 75 mls/hr Potassium Chloride 40 meq/ (Premix) 100 mls @ 25 mls/hr IV ONETIME ONE Stop: 09/01/19 08:24 Last Infusion: 09/01/19 04:55 Dose: 20 mls/hr Insulin Aspart (Novolog) 5 unit SUBCUT TIDAC ANTHONY Insulin Glargine (Lantus Solostar) 0 units SUBCUT ONETIME ONE Stop: 09/01/19 00:38 Last Admin: 09/01/19 00:50 Dose: 10 unit Insulin Human Regular (Novolin R) 10 unit IVPUSH ONETIME ONE; Protocol Stop: 08/31/19 17:48 Last Admin: 08/31/19 18:05 Dose: 10 units Lorazepam (Ativan) 1 mg IVPUSH ONETIME ONE Stop: 08/31/19 17:47 Last Admin: 08/31/19 18:04 Dose: 1 mg Ondansetron HCl (Zofran) 4 mg IVPUSH ONETIME ONE Stop: 08/31/19 17:47 Last Admin: 08/31/19 18:04 Dose: 4 mg - Exam Quality Assessment: No: Supplemental Oxygen, Skin Breakdown General: Alert, Oriented HEENT: Pupils Equal. No: Scleral Icterus Neck: Supple, Trachea Midline Lungs: Clear to Auscultation, Normal Respiratory Effort Cardiovascular: Regular Rate, Regular Rhythm GI/Abdominal Exam: Normal Bowel Sounds, Soft, Non-Tender, No Organomegaly Extremities: Normal Inspection, Normal Range of Motion Peripheral Pulses: 3+: Dorsalis Pedis (L), Dorsalis Pedis (R) Skin: Warm, Intact - Problem List & Annotations (1) Hyperglycemia SNOMED Code(s): 33929740 Code(s): R73.9 - HYPERGLYCEMIA, UNSPECIFIED Status: Acute (2) Uncontrolled diabetes mellitus SNOMED Code(s): 89673725, 338604959 Code(s): E11.65 - TYPE 2 DIABETES MELLITUS WITH HYPERGLYCEMIA Status: Chronic Qualifiers: Diabetes mellitus type: type 2 (3) Anxiety SNOMED Code(s): 60506007 Code(s): F41.9 - ANXIETY DISORDER, UNSPECIFIED Status: Chronic (4) History of medication noncompliance SNOMED Code(s): 391145414 Code(s): Z91.14 - PATIENT'S OTHER NONCOMPLIANCE WITH MEDICATION REGIMEN Status: Chronic - Problem List Review Problem List Initiated/Reviewed/Updated: Yes - My Orders Last 24 Hours: My Active Orders 08/31/19 20:11 Patient Status [ADT] Routine Bedrest Bedside Commode [RC] ASDIRECTED Oxygen Therapy [RC] PRN VTE/DVT Education [RC] PER UNIT ROUTINE Vital Signs [RC] Q1H Consult to Diabetic Nurse Specialist [CONS] Routine Consult to Women Specialist [CONS] Routine UA W/MICROSCOPIC [URIN] Routine Albuterol/Ipratropium [DuoNeb 3.0-0.5 MG/3 ML] 3 ml NEB Q4HRRT PRN Resuscitation Status Routine 08/31/19 20:12 Communication Order [RC] STAT Communication Order [RC] STAT Communication Order [RC] STAT Peripheral IV Insertion Adult [OM.PC] Stat 08/31/19 20:14 Cardiac Monitoring [RC] Q8H Intake and Output [RC] Q12H Pulse Oximetry [RC] CONTINUOUS 08/31/19 20:15 Enoxaparin [Lovenox] 40 mg SUBCUT Q24H 09/01/19 06:00 Blood Glucose Check, Bedside [RC] WITHMEALSANDBED 09/01/19 08:51 BASIC METABOLIC PANEL,BMP [CHEM] Q4H 09/01/19 09:00 Pantoprazole [ProTONIX IV] 40 mg IVPUSH DAILY 09/01/19 11:30 Insulin Aspart [NovoLOG] 3 unit SUBCUT TIDAC 09/01/19 21:00 Insulin Glarg,Human.Rec.Analog [LantUS Solostar] 10 units SUBCUT BEDTIME - Plan Plan:: Patient came in with severely elevated blood sugars>900, no Anion gap, no acidosis based on Bicarb(patient refused ABG) Patient was started on insulin gtt for hyperglycemic, has been off the gtt since midnight and transitioned to SQ insulin cont Humalog and glargine cont SSI cont Accu checks Q4-Q6 Tolerating diet well, will advance as tolerated Replete K as indicated cont DVT ppx Will advance ambulation as tolerated cont to monitor closely Ativan as needed for severe anxiety patient counseled about medication compliance in detail
[2019-09-01] MEDS: Insulin Aspart 100 Units/ML 3 ML Pen SUBCUT SCH ×6 (08:46→20:33)
[2019-09-01] MEDS ORDERED: Pantoprazole 40 MG Vial IVPUSH SCH (09:00)
[2019-09-01 09:24] LABS: CARBON DIOXIDE,CO2 29.9 mmol/L (21.0-32.0); POTASSIUM,K 4.3 mmol/L (3.5-5.1)
[2019-09-01] MEDS ORDERED: Insulin Aspart 100 Units/ML 3 ML Pen SUBCUT SCH ×2 (11:30)
[2019-09-01] MEDS ORDERED: LORazepam 0.5 MG Tab PO ONE (12:00)
[2019-09-01] MEDS ORDERED: Simethicone 80 MG Tab.Chew PO ONE (14:36)
[2019-09-01] MEDS ORDERED: Calcium Carbonate 500 MG Tab.Chew PO ONE (16:58)
[2019-09-01] MEDS ORDERED: Morphine 2 MG/ML Syringe IV ONE (17:01)
[2019-09-01] MEDS: Enoxaparin 40 MG/0.4 ML Syringe SUBCUT SCH (20:30)
[2019-09-01] MEDS ORDERED: Insulin Glargine,Human Rec. Analog 100 Units/ML 3 ML Pen SUBCUT SCH (21:00)
[2019-09-02 00:20] VITALS: PULSE 86
[2019-09-02 04:33] VITALS: BP 159/97
[2019-09-02 06:40] LABS: CARBON DIOXIDE,CO2 29.2 mmol/L (21.0-32.0); POTASSIUM,K 3.9 mmol/L (3.5-5.1)
[2019-09-02] MEDS ORDERED: Pantoprazole 40 MG in Sodium Chloride 0.9% 10 ML IV SCH (09:00)
== END 2019-09-02 06:23 | disposition left against medical advice (07) | DRG 638 ==
LOC: MW.ED 17:21 → MW.ICU 18:53 → MW.MS 09-01 15:20
PROVIDERS: ADMIT Student in an Organized Health Care Education/Training Program; ATTEND Student in an Organized Health Care Education/Training Program
DX: E11.65 Type 2 diabetes mellitus with hyperglycemia (principal); N17.9 Acute kidney failure, unspecified; E87.1 Hypo-osmolality and hyponatremia; F41.9 Anxiety disorder, unspecified; I10 Essential (primary) hypertension; F32.9 Major depressive disorder, single episode, unspecified; G43.909 Migraine, unspecified, not intractable, without status migrainosus; E11.43 Type 2 diabetes mellitus with diabetic autonomic (poly)neuropathy; K31.84 Gastroparesis; F17.210 Nicotine dependence, cigarettes, uncomplicated; Z91.14 Patient's other noncompliance with medication regimen; Z91.040 Latex allergy status; Z88.2 Allergy status to sulfonamides; Z85.43 Personal history of malignant neoplasm of ovary
CPT/HCPCS: 36415; 80048; 80053; 80305-QW; 82009; 82962; 83690; 83735; 84100; 84484; 85025; 93005; 96361; 96374; 96375; 99285; 99285-25; A9270-GY; C9113; G0480; J1650; J1815-GY; J2060; J2405; J3480; J7030; J7040; J7042

== ENCOUNTER 2019-09-25 20:33 | Observation (INO) | payer MEDICAID ==
[2019-09-25] MEDS ORDERED: Sodium Chloride 0.9% 1,000 ML IV ONE (20:56)
--- NOTE | 2019-09-25 21:07 | EDM.PDOC ---
ED HPI GENERAL MEDICAL PROBLEM - General Chief Complaint: Diabetic Complaint Stated Complaint: BOTH LEGS SWELL Time Seen by Provider: 09/25/19 20:39 Source of Information: Reports: Patient History Limitations: Reports: No Limitations - History of Present Illness INITIAL COMMENTS - FREE TEXT/NARRATIVE: HISTORY AND PHYSICAL: History of present illness: Patient is a 54-year-old female who presents to the ED today with concern of bilateral lower extremity swelling over the past couple weeks. Patient states she is also concerned because she has not been checking her blood sugars or giving any insulin for her diabetes. Patient states she's had some nausea and one episode of vomiting earlier today. Patient states she does not have access to insulin or a blood glucose monitor. Patient states she's had swelling of her lower extremities over the past several weeks but denies any other symptoms or concerns. Patient was admitted to our hospital on 08/31/19 for hyperglycemia and patient left AMA prior to discharge. Patient states she does smoke 1 pack of cigarettes a day and has so for 30 years. Patient denies fever, chills, chest pain, shortness of breath, or cough. Denies headache, neck stiff ness, change in vision, syncope, or near syncope. Denies abdominal pain, diarrhea, constipation, or dysuria. Has not noted any blood in urine or stool. Patient has been eating and drinking appropriately. Review of systems: As per history of present illness and below otherwise all systems reviewed and negative. Past medical history: As per history of present illness and as reviewed below otherwise noncontributory. Surgical history: As per history of present illness and as reviewed below otherwise noncontributory. Social history: See social history for further information Family history: As per history of present illness and as reviewed below otherwise noncontributory. Physical exam: General: Patient is alert, oriented, and in no acute distress. Patient laying comfortably on exam table. Patient appears older than stated age. HEENT: Atraumatic, normocephalic, pupils equal and reactive bilaterally, negative for conjunctival pallor or scleral icterus, mucous membranes dry, TMs normal bilaterally, throat clear, neck supple, nontender, trachea midline. No drooling or trismus noted. No meningeal signs. No hot potato voice noted. Lungs: Mild wheezing to auscultation of bilateral lung bases, breath sounds equal bilaterally, chest nontender. Heart: S1S2, regular rate and rhythm without overt murmur Abdomen: Soft, nondistended, nontender. Negative for masses or hepatosplenomegaly. Negative for costovertebral tenderness. Pelvis: Stable nontender. Genitourinary: Deferred. Rectal: Deferred. Skin: Intact, warm, dry. No lesions or rashes noted. Extremities: Negative for cords or calf pain. Neurovascular unremarkable. 2+ pitting edema bilateral lower extremities to the knees. Neuro: Awake, alert, oriented. Cranial nerves II through XII unremarkable. Cerebellum unremarkable. Motor and sensory unremarkable throughout. Exam nonfocal. Notes: Dr. Belle was consulted on patient and will admit to observation Voices understanding and is agreeable to plan of care. Denies any further questions or concerns at this time. Diagnostics: Bedside glucose, CBC, CMP, UA, EKG, chest x-ray, BNP, VBG, blood ketones ( patient refuses ABG) Therapeutics: Saline, insulin, potassium Impression: Hyperglycemia Hypokalemia Medical non-compliant Plan: 1. Admit to observation to Dr. Belle Definitive disposition and diagnosis as appropriate pending reevaluation and review of above. - Related Data Allergies Allergy/AdvReac Type Severity Reaction Status Date / Time latex Allergy Mild Rash Verified 09/25/19 20:48 Sulfa (Sulfonamide Allergy Unknown Airway Verified 09/25/19 20:48 Antibiotics) Tightness sulfur dioxide Allergy Airway Verified 09/25/19 20:48 Tightness Home Meds: Home Meds . 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: Musculoskeletal History: Reports: Back Pain, Chronic Neurological History: Reports: Migraines, Other (See Below) Other Neuro History: "Silent Migraines" Psychiatric History: Reports: Anxiety, Depression Endocrine/Metabolic History: Reports: Diabetes, Type II Other Endocrine/Metabolic History: Pt questions this Dx Hematologic History: Reports: Other (See Below) Other Hematologic History: States "bacterium in blood" Immunologic History: Reports: None Other Immunologic History: states was in the hospital in [place] last summer with blood infection "not sure what it was called" Oncologic (Cancer) History: Reports: Ovarian Dermatologic History: Reports: Eczema - Infectious Disease History Infectious Disease History: Reports: None - Past Surgical History Head Surgeries/Procedures: Reports: None GI Surgical History: Reports: None - History Comment History Comment: Son says she's been evaluated for these sxs in past but doesn' t recall where w/u was done (including CT of abd). No EGD ever done. The h pylori was dx'd by serologies. Social & Family History - Family History Family Medical History: Noncontributory Cardiac: Reports: Hypertension Other Cardiac Family History: Mother, Aunt Respiratory: Reports: COPD Other Respiratory Family Hisory: Uncle GI: Reports: None Neurological: Reports: Other (See Below) Other Neurological Family History: Stroke-Grandmother Endocrine/Metabolic: Reports: Diabetes, type II - Tobacco Use Smoking Status *Q: Current Every Day Smoker Years of Tobacco use: 39 Packs/Tins Daily: 0.3 - Caffeine Use Caffeine Use: Reports: Coffee - Recreational Drug Use Recreational Drug Use: No - Living Situation & Occupation Living situation: Reports: Single Occupation: Unemployed ED ROS GENERAL - Review of Systems Review Of Systems: ROS reveals no pertinent complaints other than HPI. ED EXAM GENERAL NO PERIP PULSE - Physical Exam Exam: See Below (See dictation) Course - Vital Signs Last Recorded V/S: Last Vital Signs Temp 97.3 F 09/25/19 20:45 Pulse 94 09/25/19 20:45 Resp 16 09/25/19 20:45 BP 112/80 09/25/19 20:45 Pulse Ox 97 09/25/19 20:45 - Orders/Labs/Meds Orders: Active Orders 24 hr Category Date Time Status Admission Status [Patient Status] [ADT] Stat ADT 09/25/19 22:08 Ordered EKG Documentation Completion [RC] STAT Care 09/25/19 21:07 Active Glucose [Blood Glucose Check, Bedside] [RC] ONETIME Care 09/25/19 20:40 Active B-TYPE NATRIURETIC PEPTIDE,BNP [CHEM] Stat Lab 09/25/19 21:20 Received UA RFX CRISSY AND CULT IF INDIC [URIN] Stat Lab 09/25/19 20:56 Ordered Insulin Regular, Human [NovoLIN R] Med 09/25/19 22:00 Active 20 unit SUBCUT ASDIRECTED Medication Orders Insulin Human Regular (Novolin R) 20 unit SUBCUT ASDIRECTED ANTHONY; Protocol Labs: Laboratory Tests 09/25/19 09/25/19 09/25/19 Range/Units 21:07 21:20 21:20 WBC 6.56 (4.0-11.0) K/uL RBC 4.17 L (4.30-5.90) M/uL Hgb 12.6 (12.0-16.0) g/dL Hct 34.9 L (36.0-46.0) % MCV 83.7 (80.0-98.0) fL MCH 30.2 (27.0-32.0) pg MCHC 36.1 (31.0-37.0) g/dL RDW Std Deviation 40.0 (28.0-62.0) fl RDW Coeff of Kennedi 13 (11.0-15.0) % Plt Count 228 (150-400) K/uL MPV 12.60 H (7.40-12.00) fL Neut % (Auto) 71.5 (48.0-80.0) % Lymph % (Auto) 21.0 (16.0-40.0) % [place] % (Auto) 6.3 (0.0-15.0) % Eos % (Auto) 0.9 (0.0-7.0) % Baso % (Auto) 0.3 (0.0-1.5) % Neut # (Auto) 4.7 (1.4-5.7) K/uL Lymph # (Auto) 1.4 (0.6-2.4) K/uL [place] # (Auto) 0.4 (0.0-0.8) K/uL Eos # (Auto) 0.1 (0.0-0.7) K/uL Baso # (Auto) 0.0 (0.0-0.1) K/uL Nucleated RBC % 0.0 /100WBC Nucleated RBCs # 0 K/uL VBG pH (7.31-7.41) VBG pCO2 (35-45) mmHG VBG pO2 (30-40) mmHG VBG HCO3 (22-30) mEq/L VBG Total CO2 (41-51) mmol/L VBG Base Excess (-3.0-3.0) Sodium 129 L (136-145) mmol/L Potassium 2.9 L (3.5-5.1) mmol/L Chloride 93 L (98-107) mmol/L Carbon Dioxide 29.4 (21.0-32.0) mmol/L BUN 12 (7.0-18.0) mg/dL Creatinine 1.2 H (0.6-1.0) mg/dL Est Cr Clr Drug Dosing 54.37 mL/min Estimated GFR (MDRD) 47.2 ml/min Glucose 515 H* (74-106) mg/dL POC Glucose > 500 H (60-110) mg/dL Calcium 7.8 L (8.5-10.1) mg/dL Total Bilirubin 0.5 (0.2-1.0) mg/dL AST 26 (15-37) IU/L ALT 25 (14-63) IU/L Alkaline Phosphatase 116 (46-116) U/L Total Protein 5.5 L (6.4-8.2) g/dL Albumin 2.0 L (3.4-5.0) g/dL Globulin 3.5 (2.6-4.0) g/dL Albumin/Globulin Ratio 0.6 L (0.9-1.6) Ketones (NEG) 09/25/19 09/25/19 Range/Units 21:20 21:20 WBC (4.0-11.0) K/uL RBC (4.30-5.90) M/uL Hgb (12.0-16.0) g/dL Hct (36.0-46.0) % MCV (80.0-98.0) fL MCH (27.0-32.0) pg MCHC (31.0-37.0) g/dL RDW Std Deviation (28.0-62.0) fl RDW Coeff of Kennedi (11.0-15.0) % Plt Count (150-400) K/uL MPV (7.40-12.00) fL Neut % (Auto) (48.0-80.0) % Lymph % (Auto) (16.0-40.0) % [place] % (Auto) (0.0-15.0) % Eos % (Auto) (0.0-7.0) % Baso % (Auto) (0.0-1.5) % Neut # (Auto) (1.4-5.7) K/uL Lymph # (Auto) (0.6-2.4) K/uL [place] # (Auto) (0.0-0.8) K/uL Eos # (Auto) (0.0-0.7) K/uL Baso # (Auto) (0.0-0.1) K/uL Nucleated RBC % /100WBC Nucleated RBCs # K/uL VBG pH 7.59 H (7.31-7.41) VBG pCO2 33 L (35-45) mmHG VBG pO2 28 L (30-40) mmHG VBG HCO3 32 H (22-30) mEq/L VBG Total CO2 29 L (41-51) mmol/L VBG Base Excess 9.7 H (-3.0-3.0) Sodium (136-145) mmol/L Potassium (3.5-5.1) mmol/L Chloride (98-107) mmol/L Carbon Dioxide (21.0-32.0) mmol/L BUN (7.0-18.0) mg/dL Creatinine (0.6-1.0) mg/dL Est Cr Clr Drug Dosing mL/min Estimated GFR (MDRD) ml/min Glucose (74-106) mg/dL POC Glucose (60-110) mg/dL Calcium (8.5-10.1) mg/dL Total Bilirubin (0.2-1.0) mg/dL AST (15-37) IU/L ALT (14-63) IU/L Alkaline Phosphatase (46-116) U/L Total Protein (6.4-8.2) g/dL Albumin (3.4-5.0) g/dL Globulin (2.6-4.0) g/dL Albumin/Globulin Ratio (0.9-1.6) Ketones NEGATIVE (NEG) Meds: Medications Generic Name Dose Route Start Last Admin Trade Name Freq PRN Reason Stop Dose Admin Insulin Human Regular 20 unit 09/25/19 22:00 Novolin R SUBCUT ASDIRECTED ANTHONY Protocol Discontinued Medications Generic Name Dose Route Start Last Admin Trade Name Matty PRN Reason Stop Dose Admin Sodium Chloride 1,000 mls @ 999 mls/hr 09/25/19 20:56 09/25/19 21:34 Normal Saline IV 09/25/19 21:56 999 mls/hr BOLUS ONE Administration Potassium Chloride 40 meq 09/25/19 21:59 Klor-Con M20 PO 09/25/19 22:00 ONETIME ONE Departure - Departure Time of Disposition: 22:00 Disposition: Refer to Observation Clinical Impression: Hyperglycemia, Hypokalemia, Medical non-compliance - Discharge Information Referrals: PCP,None [Primary Care Provider] - Forms: ED Department Discharge - My Orders Last 24 Hours: My Active Orders 09/25/19 20:40 Glucose [Blood Glucose Check, Bedside] [RC] ONETIME 09/25/19 20:56 UA RFX CRISSY AND CULT IF INDIC [URIN] Stat 09/25/19 21:07 EKG Documentation Completion [RC] STAT 09/25/19 21:20 B-TYPE NATRIURETIC PEPTIDE,BNP [CHEM] Stat 09/25/19 22:00 Insulin Regular, Human [NovoLIN R] 20 unit SUBCUT ASDIRECTED 09/25/19 22:08 Admission Status [Patient Status] [ADT] Stat - Assessment/Plan Last 24 Hours: My Active Orders 09/25/19 20:40 Glucose [Blood Glucose Check, Bedside] [RC] ONETIME 09/25/19 20:56 UA RFX CRISSY AND CULT IF INDIC [URIN] Stat 09/25/19 21:07 EKG Documentation Completion [RC] STAT 09/25/19 21:20 B-TYPE NATRIURETIC PEPTIDE,BNP [CHEM] Stat 09/25/19 22:00 Insulin Regular, Human [NovoLIN R] 20 unit SUBCUT ASDIRECTED 09/25/19 22:08 Admission Status [Patient Status] [ADT] Stat
[2019-09-25 21:54] LABS: CARBON DIOXIDE,CO2 29.4 mmol/L (21.0-32.0); POTASSIUM,K 2.9 mmol/L (3.5-5.1)
[2019-09-25] MEDS ORDERED: Potassium Chloride 20 MEQ Tab.ER PO ONE (21:59)
[2019-09-25] MEDS ORDERED: Insulin Regular, Human 100 Units/ML 10 ML Vial SUBCUT SCH (22:00)
--- NOTE | 2019-09-25 22:03 | CR ---
INDICATION: Chest pain, shortness of breath TECHNIQUE: Frontal view of the chest. COMPARISON: Chest two view 06/12/2018 FINDINGS/IMPRESSION: There is no airspace consolidation or pulmonary vascular congestion. There is stable prominence of the pulmonary interstitium. There is no sizable pleural effusion or pneumothorax. The cardiomediastinal silhouette is normal. The visualized osseous structures are unremarkable. Dictated by Jorge Golden MD @ Sep 25 2019 9:17PM (Electronically Signed)
[2019-09-25] MEDS ORDERED: LORazepam 2 MG/ML SDV IVPUSH ONE (22:11)
[2019-09-25] MEDS ORDERED: Albuterol/Ipratropium 3.0-0.5 MG/3 ML Neb Soln NEB PRN (22:41)
--- NOTE | 2019-09-25 22:51 | PCM.HP.2 ---
H&P History of Present Illness - General Date of Service: 09/25/19 Admit Problem/Dx: Admission Diagnosis/Problem Admission Diagnosis/Problem Hyperglycemia Source of Information: Patient - History of Present Illness Initial Comments - Free Text/Narative: Patient is a 54-year-old female who presents to the ED with c/o bilateral lower extremity swelling over the past couple weeks. Patient states she has been having some nausea and vomiting and has not been checking her blood sugars or taking any insulin for her diabetes as she does not have access to insulin or a blood glucose monitor. Patient was admitted to our hospital on 08/31/19 for hyperglycemia and patient left AMA prior to discharge. Patient states she does smoke 1 pack of cigarettes a day and has so for 30 years. Patient denies fever, chills, chest pain, shortness of breath, or cough,syncope, abdominal pain, diarrhea, constipation, or dysuria. In the ER patient was found to be hyperglycemic with BS in 500s, no DKA, patient was admitted for further management of her hyperglycemia. Duration of Symptoms: Reports: Day(s): Associated Symptoms: Reports: Loss of Appetite, Nausea/Vomiting, Weakness - Related Data Allergies/Adverse Reactions: Allergies Allergy/AdvReac Type Severity Reaction Status Date / Time latex Allergy Mild Rash Verified 09/25/19 20:48 Sulfa (Sulfonamide Allergy Unknown Airway Verified 09/25/19 20:48 Antibiotics) Tightness sulfur dioxide Allergy Airway Verified 09/25/19 20:48 Tightness Home Medications: Home Meds . 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: Musculoskeletal History: Reports: Back Pain, Chronic Neurological History: Reports: Migraines, Other (See Below) Other Neuro History: "Silent Migraines" Psychiatric History: Reports: Anxiety, Depression Endocrine/Metabolic History: Reports: Diabetes, Type II Other Endocrine/Metabolic History: Pt questions this Dx Hematologic History: Reports: Other (See Below) Other Hematologic History: States "bacterium in blood" Immunologic History: Reports: None Other Immunologic History: states was in the hospital in [place] last summer with blood infection "not sure what it was called" Oncologic (Cancer) History: Reports: Ovarian Dermatologic History: Reports: Eczema - Infectious Disease History Infectious Disease History: Reports: None - Past Surgical History Head Surgeries/Procedures: Reports: None GI Surgical History: Reports: None - History Comment History Comment: Son says she's been evaluated for these sxs in past but doesn' t recall where w/u was done (including CT of abd). No EGD ever done. The h pylori was dx'd by serologies. Social & Family History - Family History Family Medical History: Noncontributory Cardiac: Reports: Hypertension Other Cardiac Family History: Mother, Aunt Respiratory: Reports: COPD Other Respiratory Family Hisory: Uncle GI: Reports: None Neurological: Reports: Other (See Below) Other Neurological Family History: Stroke-Grandmother Endocrine/Metabolic: Reports: Diabetes, type II - Tobacco Use Smoking Status *Q: Current Every Day Smoker Years of Tobacco use: 39 Packs/Tins Daily: 0.3 - Caffeine Use Caffeine Use: Reports: Coffee - Recreational Drug Use Recreational Drug Use: No - Living Situation & Occupation Living situation: Reports: Single Occupation: Unemployed H&P Review of Systems - Review of Systems: Review Of Systems: ROS reveals no pertinent complaints other than HPI. Exam - Exam Exam: See Below - Vital Signs Vital Signs: Last Vital Signs Temp 36.3 C 09/25/19 20:45 Pulse 94 09/25/19 20:45 Resp 16 09/25/19 20:45 BP 112/80 09/25/19 20:45 Pulse Ox 97 09/25/19 20:45 Weight: 62.8 kg - Exam Quality Assessment: Supplemental Oxygen General: Alert, Cooperative, Mild Distress HEENT: No: Mucosa Moist & Reyno Neck: Trachea Midline Lungs: Clear to Auscultation, Normal Respiratory Effort Cardiovascular: Regular Rate, Regular Rhythm Extremities: Pedal Edema Peripheral Pulses: 3+: Dorsalis Pedis (L), Dorsalis Pedis (R) Skin: Dry - Patient Data Lab Results Last 24 hrs: Laboratory Results - last 24 hr 1009/25/19 09/25/19 Range/Units 21:07 21:20 21:20 WBC 6.56 (4.0-11.0) K/uL RBC 4.17 L (4.30-5.90) M/uL Hgb 12.6 (12.0-16.0) g/dL Hct 34.9 L (36.0-46.0) % MCV 83.7 (80.0-98.0) fL MCH 30.2 (27.0-32.0) pg MCHC 36.1 (31.0-37.0) g/dL RDW Std Deviation 40.0 (28.0-62.0) fl RDW Coeff of Kennedi 13 (11.0-15.0) % Plt Count 228 (150-400) K/uL MPV 12.60 H (7.40-12.00) fL Neut % (Auto) 71.5 (48.0-80.0) % Lymph % (Auto) 21.0 (16.0-40.0) % Peach % (Auto) 6.3 (0.0-15.0) % Eos % (Auto) 0.9 (0.0-7.0) % Baso % (Auto) 0.3 (0.0-1.5) % Neut # (Auto) 4.7 (1.4-5.7) K/uL Lymph # (Auto) 1.4 (0.6-2.4) K/uL Peach # (Auto) 0.4 (0.0-0.8) K/uL Eos # (Auto) 0.1 (0.0-0.7) K/uL Baso # (Auto) 0.0 (0.0-0.1) K/uL Nucleated RBC % 0.0 /100WBC Nucleated RBCs # 0 K/uL VBG pH (7.31-7.41) VBG pCO2 (35-45) mmHG VBG pO2 (30-40) mmHG VBG HCO3 (22-30) mEq/L VBG Total CO2 (41-51) mmol/L VBG Base Excess (-3.0-3.0) Sodium 129 L (136-145) mmol/L Potassium 2.9 L (3.5-5.1) mmol/L Chloride 93 L (98-107) mmol/L Carbon Dioxide 29.4 (21.0-32.0) mmol/L BUN 12 (7.0-18.0) mg/dL Creatinine 1.2 H (0.6-1.0) mg/dL Est Cr Clr Drug Dosing 54.37 mL/min Estimated GFR (MDRD) 47.2 ml/min Glucose 515 H* (74-106) mg/dL POC Glucose > 500 H (60-110) mg/dL Calcium 7.8 L (8.5-10.1) mg/dL Total Bilirubin 0.5 (0.2-1.0) mg/dL AST 26 (15-37) IU/L ALT 25 (14-63) IU/L Alkaline Phosphatase 116 (46-116) U/L B-Natriuretic Peptide (<100) PG/ML Total Protein 5.5 L (6.4-8.2) g/dL Albumin 2.0 L (3.4-5.0) g/dL Globulin 3.5 (2.6-4.0) g/dL Albumin/Globulin Ratio 0.6 L (0.9-1.6) Ketones (NEG) 09/25/19 09/25/19 09/25/19 Range/Units 21:20 21:20 21:20 WBC (4.0-11.0) K/uL RBC (4.30-5.90) M/uL Hgb (12.0-16.0) g/dL Hct (36.0-46.0) % MCV (80.0-98.0) fL MCH (27.0-32.0) pg MCHC (31.0-37.0) g/dL RDW Std Deviation (28.0-62.0) fl RDW Coeff of Kennedi (11.0-15.0) % Plt Count (150-400) K/uL MPV (7.40-12.00) fL Neut % (Auto) (48.0-80.0) % Lymph % (Auto) (16.0-40.0) % Peach % (Auto) (0.0-15.0) % Eos % (Auto) (0.0-7.0) % Baso % (Auto) (0.0-1.5) % Neut # (Auto) (1.4-5.7) K/uL Lymph # (Auto) (0.6-2.4) K/uL Peach # (Auto) (0.0-0.8) K/uL Eos # (Auto) (0.0-0.7) K/uL Baso # (Auto) (0.0-0.1) K/uL Nucleated RBC % /100WBC Nucleated RBCs # K/uL VBG pH 7.59 H (7.31-7.41) VBG pCO2 33 L (35-45) mmHG VBG pO2 28 L (30-40) mmHG VBG HCO3 32 H (22-30) mEq/L VBG Total CO2 29 L (41-51) mmol/L VBG Base Excess 9.7 H (-3.0-3.0) Sodium (136-145) mmol/L Potassium (3.5-5.1) mmol/L Chloride (98-107) mmol/L Carbon Dioxide (21.0-32.0) mmol/L BUN (7.0-18.0) mg/dL Creatinine (0.6-1.0) mg/dL Est Cr Clr Drug Dosing mL/min Estimated GFR (MDRD) ml/min Glucose (74-106) mg/dL POC Glucose (60-110) mg/dL Calcium (8.5-10.1) mg/dL Total Bilirubin (0.2-1.0) mg/dL AST (15-37) IU/L ALT (14-63) IU/L Alkaline Phosphatase (46-116) U/L B-Natriuretic Peptide 34 (<100) PG/ML Total Protein (6.4-8.2) g/dL Albumin (3.4-5.0) g/dL Globulin (2.6-4.0) g/dL Albumin/Globulin Ratio (0.9-1.6) Ketones NEGATIVE (NEG) Result Diagrams: 09/26/19 10:00 09/26/19 10:00 *Q Meaningful Use (ADM) - VTE Risk Assess *Q Each Risk Factor Represents 1 Point: Age 41 - 59 years, Medical Patient Currently on Bedrest Total Score 1 Point Risk Factors: 2 - Problem List (1) Hyperglycemia SNOMED Code(s): 94790698 ICD Code: R73.9 - HYPERGLYCEMIA, UNSPECIFIED Status: Acute Current Visit : Yes (2) Hypokalemia SNOMED Code(s): 25925523 ICD Code: E87.6 - HYPOKALEMIA Status: Acute Current Visit: Yes (3) Medical non-compliance SNOMED Code(s): 534997986 ICD Code: Z91.19 - PATIENT'S NONCOMPLIANCE W OTH MEDICAL TREATMENT AND REGIMEN Status: Acute Current Visit: Yes (4) Acute kidney insufficiency SNOMED Code(s): 670699072 ICD Code: N28.9 - DISORDER OF KIDNEY AND URETER, UNSPECIFIED Status: Acute Current Visit: No (5) Anxiety SNOMED Code(s): 30389865 ICD Code: F41.9 - ANXIETY DISORDER, UNSPECIFIED Status: Acute Current Visit: No Problem List Initiated/Reviewed/Updated: Yes Orders Last 24hrs: Active Orders 24 hr Category Date Time Status Admission Status [Patient Status] [ADT] Stat ADT 09/25/19 22:08 Active Accu Check [Blood Glucose Check, Bedside] [RC] Q4HR Care 09/25/19 22:49 Ordered Blood Glucose Check, Bedside [RC] WITHMEALSANDBED Care 09/26/19 08:00 Active EKG Documentation Completion [RC] STAT Care 09/25/19 21:07 Active Glucose [Blood Glucose Check, Bedside] [RC] ONETIME Care 09/25/19 20:40 Active Oxygen Therapy [RC] PRN Care 09/25/19 22:42 Ordered RT Aerosol Therapy [RC] ASDIRECTED Care 09/25/19 22:45 Ordered VTE/DVT Education [RC] PER UNIT ROUTINE Care 09/25/19 22:42 Ordered Vital Signs [RC] Q4H Care 09/25/19 22:42 Ordered Consult to Diabetic Nurse Specialist [CONS] Routine Cons 09/25/19 22:41 Ordered [place] [employer] Diet [DIET] Diet 09/26/19 Breakfast Ordered UA RFX CRISSY AND CULT IF INDIC [URIN] Stat Lab 09/25/19 20:56 Ordered Albuterol/Ipratropium [DuoNeb 3.0-0.5 MG/3 ML] Med 09/25/19 22:41 Ordered 3 ml NEB Q4HRRT PRN Insulin Aspart [NovoLOG] Med 09/26/19 07:30 Ordered See Protocol SUBCUT ACBED Insulin Regular, Human [NovoLIN R] Med 09/25/19 22:00 Active 20 unit SUBCUT ASDIRECTED Ondansetron [Zofran ODT] Med 09/25/19 22:41 Ordered 4 mg PO Q6H PRN Sodium Chloride 0.9% @ 150 MLS/HR (1,000ml) Med 09/25/19 23:00 Ordered Sodium Chloride 0.9% [Normal Saline] 1,000 ml IV ASDIRECTED Resuscitation Status Routine Resus Stat 09/25/19 22:41 Ordered Medication Orders Albuterol/Ipratropium (Duoneb 3.0-0.5 Mg/3 Ml) 3 ml NEB Q4HRRT PRN PRN Reason: Shortness Of Breath/wheezing Sodium Chloride (Normal Saline) 1,000 mls @ 150 mls/hr IV ASDIRECTED ANTHONY Insulin Aspart (Novolog) 0 unit SUBCUT ACBED ANTHONY; Protocol Insulin Human Regular (Novolin R) 20 unit SUBCUT ASDIRECTED ANTHONY; Protocol Last Admin: 09/25/19 22:12 Dose: 20 units Ondansetron HCl (Zofran Odt) 4 mg PO Q6H PRN PRN Reason: nausea, able to take PO Assessment/Plan Comment:: Patient comes in with c/o N/V, leg swelling Was found to be hyperglycemic, No DKA, No Acidosis Sec to non-compliance Received IVF bolus and SubQ insulin Will cont IVF High dose SSI Frequent Accu checks NPO for now Monitor and replete electrolytes as needed
[2019-09-26] MEDS: Sodium Chloride 0.9% 1,000 ML IV SCH ×2 (00:04→04:41)
[2019-09-26] MEDS: Ondansetron 4 MG Tab.DIS PO PRN ×2 (01:42→09:22)
[2019-09-26] MEDS: Insulin Aspart 100 Units/ML 3 ML Pen SUBCUT SCH ×4 (07:14→20:52)
[2019-09-26] MEDS ORDERED: Sodium Chloride 0.9% 1,000 ML IV SCH (09:30)
[2019-09-26] MEDS ORDERED: Acetaminophen 325 MG Tab PO SCH (09:45)
[2019-09-26] MEDS ORDERED: Acetaminophen 325 MG Tab PO PRN ×2 (10:07→10:17)
[2019-09-26] MEDS ORDERED: LORazepam 2 MG/ML SDV IVPUSH ONE (10:08)
[2019-09-26 10:35] LABS: BLOOD UREA NITROGEN,BUN 12 mg/dL (7.0-18.0); CARBON DIOXIDE,CO2 29.5 mmol/L (21.0-32.0); CHLORIDE,CL 98 mmol/L (98-107); GLUCOSE RANDOM 197 mg/dL (74-106); POTASSIUM,K 2.8 mmol/L (3.5-5.1); SODIUM,NA 136 mmol/L (136-145)
[2019-09-26] MEDS ORDERED: Potassium Chloride Riders 40 MEQ in Premix Bag 1 BAG IV ONE (11:29)
--- NOTE | 2019-09-26 11:37 | PCM.PN ---
- General Info Date of Service: 09/26/19 Admission Dx/Problem (Free Text): Admission Diagnosis/Problem Admission Diagnosis/Problem Hyperglycemia Subjective Update: crying at bedside, states is anxious, wants Ativan, has nausea earlier but now tolerating diet Functional Status: Reports: Tolerating Diet - Review of Systems General: Reports: Weakness, Fatigue Pulmonary: Denies: Shortness of Breath Cardiovascular: Denies: Chest Pain, Palpitations Gastrointestinal: Reports: Nausea, Vomiting Genitourinary: Denies: Dysuria, Frequency Musculoskeletal: Denies: Shoulder Pain, Arm Pain Skin: Denies: Jaundice, Mottled Neurological: Reports: Headache. Denies: Dizziness, Numbness Psychiatric: Reports: Anxiety - Patient Data Vitals - Most Recent: Last Vital Signs Temp 36.0 C 09/26/19 08:30 Pulse 80 09/26/19 08:30 Resp 16 09/26/19 08:30 BP 148/84 H 09/26/19 08:30 Pulse Ox 95 09/26/19 08:30 Weight - Most Recent: 62.8 kg I&O - Last 24 Hours: Intake & Output 09/25/19 09/26/19 09/26/19 22:59 06:59 14:59 Intake Total 465 735 Output Total 200 Balance 265 735 Lab Results Last 24 Hours: Laboratory Results - last 24 hr 09/25/19 09/25/19 09/25/19 Range/Units 21:07 21:20 21:20 WBC 6.56 (4.0-11.0) K/uL RBC 4.17 L (4.30-5.90) M/uL Hgb 12.6 (12.0-16.0) g/dL Hct 34.9 L (36.0-46.0) % MCV 83.7 (80.0-98.0) fL MCH 30.2 (27.0-32.0) pg MCHC 36.1 (31.0-37.0) g/dL RDW Std Deviation 40.0 (28.0-62.0) fl RDW Coeff of Kennedi 13 (11.0-15.0) % Plt Count 228 (150-400) K/uL MPV 12.60 H (7.40-12.00) fL Neut % (Auto) 71.5 (48.0-80.0) % Lymph % (Auto) 21.0 (16.0-40.0) % [place] % (Auto) 6.3 (0.0-15.0) % Eos % (Auto) 0.9 (0.0-7.0) % Baso % (Auto) 0.3 (0.0-1.5) % Neut # (Auto) 4.7 (1.4-5.7) K/uL Lymph # (Auto) 1.4 (0.6-2.4) K/uL [place] # (Auto) 0.4 (0.0-0.8) K/uL Eos # (Auto) 0.1 (0.0-0.7) K/uL Baso # (Auto) 0.0 (0.0-0.1) K/uL Nucleated RBC % 0.0 /100WBC Nucleated RBCs # 0 K/uL VBG pH (7.31-7.41) VBG pCO2 (35-45) mmHG VBG pO2 (30-40) mmHG VBG HCO3 (22-30) mEq/L VBG Total CO2 (41-51) mmol/L VBG Base Excess (-3.0-3.0) Sodium 129 L (136-145) mmol/L Potassium 2.9 L (3.5-5.1) mmol/L Chloride 93 L (98-107) mmol/L Carbon Dioxide 29.4 (21.0-32.0) mmol/L BUN 12 (7.0-18.0) mg/dL Creatinine 1.2 H (0.6-1.0) mg/dL Est Cr Clr Drug Dosing 54.37 mL/min Estimated GFR (MDRD) 47.2 ml/min Glucose 515 H* (74-106) mg/dL POC Glucose > 500 H (60-110) mg/dL Calcium 7.8 L (8.5-10.1) mg/dL Phosphorus (2.6-4.7) mg/dL Magnesium (1.8-2.4) mg/dL Total Bilirubin 0.5 (0.2-1.0) mg/dL AST 26 (15-37) IU/L ALT 25 (14-63) IU/L Alkaline Phosphatase 116 (46-116) U/L B-Natriuretic Peptide (<100) PG/ML Total Protein 5.5 L (6.4-8.2) g/dL Albumin 2.0 L (3.4-5.0) g/dL Globulin 3.5 (2.6-4.0) g/dL Albumin/Globulin Ratio 0.6 L (0.9-1.6) Ketones (NEG) 09/25/19 09/25/19 09/25/19 Range/Units 21:20 21:20 21:20 WBC (4.0-11.0) K/uL RBC (4.30-5.90) M/uL Hgb (12.0-16.0) g/dL Hct (36.0-46.0) % MCV (80.0-98.0) fL MCH (27.0-32.0) pg MCHC (31.0-37.0) g/dL RDW Std Deviation (28.0-62.0) fl RDW Coeff of [place] (11.0-15.0) % Plt Count (150-400) K/uL MPV (7.40-12.00) fL Neut % (Auto) (48.0-80.0) % Lymph % (Auto) (16.0-40.0) % [place] % (Auto) (0.0-15.0) % Eos % (Auto) (0.0-7.0) % Baso % (Auto) (0.0-1.5) % Neut # (Auto) (1.4-5.7) K/uL Lymph # (Auto) (0.6-2.4) K/uL [place] # (Auto) (0.0-0.8) K/uL Eos # (Auto) (0.0-0.7) K/uL Baso # (Auto) (0.0-0.1) K/uL Nucleated RBC % /100WBC Nucleated RBCs # K/uL VBG pH 7.59 H (7.31-7.41) VBG pCO2 33 L (35-45) mmHG VBG pO2 28 L (30-40) mmHG VBG HCO3 32 H (22-30) mEq/L VBG Total CO2 29 L (41-51) mmol/L VBG Base Excess 9.7 H (-3.0-3.0) Sodium (136-145) mmol/L Potassium (3.5-5.1) mmol/L Chloride (98-107) mmol/L Carbon Dioxide (21.0-32.0) mmol/L BUN (7.0-18.0) mg/dL Creatinine (0.6-1.0) mg/dL Est Cr Clr Drug Dosing mL/min Estimated GFR (MDRD) ml/min Glucose (74-106) mg/dL POC Glucose (60-110) mg/dL Calcium (8.5-10.1) mg/dL Phosphorus (2.6-4.7) mg/dL Magnesium (1.8-2.4) mg/dL Total Bilirubin (0.2-1.0) mg/dL AST (15-37) IU/L ALT (14-63) IU/L Alkaline Phosphatase (46-116) U/L B-Natriuretic Peptide 34 (<100) PG/ML Total Protein (6.4-8.2) g/dL Albumin (3.4-5.0) g/dL Globulin (2.6-4.0) g/dL Albumin/Globulin Ratio (0.9-1.6) Ketones NEGATIVE (NEG) 09/25/19 09/26/19 09/26/19 Range/Units 23:15 03:54 06:44 WBC (4.0-11.0) K/uL RBC (4.30-5.90) M/uL Hgb (12.0-16.0) g/dL Hct (36.0-46.0) % MCV (80.0-98.0) fL MCH (27.0-32.0) pg MCHC (31.0-37.0) g/dL RDW Std Deviation (28.0-62.0) fl RDW Coeff of [place]edi (11.0-15.0) % Plt Count (150-400) K/uL MPV (7.40-12.00) fL Neut % (Auto) (48.0-80.0) % Lymph % (Auto) (16.0-40.0) % [place] % (Auto) (0.0-15.0) % Eos % (Auto) (0.0-7.0) % Baso % (Auto) (0.0-1.5) % Neut # (Auto) (1.4-5.7) K/uL Lymph # (Auto) (0.6-2.4) K/uL [place] # (Auto) (0.0-0.8) K/uL Eos # (Auto) (0.0-0.7) K/uL Baso # (Auto) (0.0-0.1) K/uL Nucleated RBC % /100WBC Nucleated RBCs # K/uL VBG pH (7.31-7.41) VBG pCO2 (35-45) mmHG VBG pO2 (30-40) mmHG VBG HCO3 (22-30) mEq/L VBG Total CO2 (41-51) mmol/L VBG Base Excess (-3.0-3.0) Sodium (136-145) mmol/L Potassium (3.5-5.1) mmol/L Chloride (98-107) mmol/L Carbon Dioxide (21.0-32.0) mmol/L BUN (7.0-18.0) mg/dL Creatinine (0.6-1.0) mg/dL Est Cr Clr Drug Dosing mL/min Estimated GFR (MDRD) ml/min Glucose (74-106) mg/dL POC Glucose 353 H 90 139 H (60-110) mg/dL Calcium (8.5-10.1) mg/dL Phosphorus (2.6-4.7) mg/dL Magnesium (1.8-2.4) mg/dL Total Bilirubin (0.2-1.0) mg/dL AST (15-37) IU/L ALT (14-63) IU/L Alkaline Phosphatase (46-116) U/L B-Natriuretic Peptide (<100) PG/ML Total Protein (6.4-8.2) g/dL Albumin (3.4-5.0) g/dL Globulin (2.6-4.0) g/dL Albumin/Globulin Ratio (0.9-1.6) Ketones (NEG) 09/26/19 09/26/19 09/26/19 Range/Units 10:00 10:00 10:29 WBC 7.84 (4.0-11.0) K/uL RBC 4.31 (4.30-5.90) M/uL Hgb 12.9 (12.0-16.0) g/dL Hct 36.5 (36.0-46.0) % MCV 84.7 (80.0-98.0) fL MCH 29.9 (27.0-32.0) pg MCHC 35.3 (31.0-37.0) g/dL RDW Std Deviation 41.1 (28.0-62.0) fl RDW Coeff of [place] 13 (11.0-15.0) % Plt Count 268 (150-400) K/uL MPV 12.20 H (7.40-12.00) fL Neut % (Auto) (48.0-80.0) % Lymph % (Auto) (16.0-40.0) % [place] % (Auto) (0.0-15.0) % Eos % (Auto) (0.0-7.0) % Baso % (Auto) (0.0-1.5) % Neut # (Auto) (1.4-5.7) K/uL Lymph # (Auto) (0.6-2.4) K/uL [place] # (Auto) (0.0-0.8) K/uL Eos # (Auto) (0.0-0.7) K/uL Baso # (Auto) (0.0-0.1) K/uL Nucleated RBC % 0.0 /100WBC Nucleated RBCs # 0 K/uL VBG pH (7.31-7.41) VBG pCO2 (35-45) mmHG VBG pO2 (30-40) mmHG VBG HCO3 (22-30) mEq/L VBG Total CO2 (41-51) mmol/L VBG Base Excess (-3.0-3.0) Sodium 136 (136-145) mmol/L Potassium 2.8 L (3.5-5.1) mmol/L Chloride 98 (98-107) mmol/L Carbon Dioxide 29.5 (21.0-32.0) mmol/L BUN 12 (7.0-18.0) mg/dL Creatinine 0.9 (0.6-1.0) mg/dL Est Cr Clr Drug Dosing 72.49 mL/min Estimated GFR (MDRD) > 60.0 ml/min Glucose 197 H (74-106) mg/dL POC Glucose 202 H (60-110) mg/dL Calcium 7.9 L (8.5-10.1) mg/dL Phosphorus 2.7 (2.6-4.7) mg/dL Magnesium 1.6 L (1.8-2.4) mg/dL Total Bilirubin (0.2-1.0) mg/dL AST (15-37) IU/L ALT (14-63) IU/L Alkaline Phosphatase (46-116) U/L B-Natriuretic Peptide (<100) PG/ML Total Protein (6.4-8.2) g/dL Albumin (3.4-5.0) g/dL Globulin (2.6-4.0) g/dL Albumin/Globulin Ratio (0.9-1.6) Ketones (NEG) Med Orders - Current: Current Medications Acetaminophen (Tylenol) 325 mg PO Q4H PRN PRN Reason: Pain Albuterol/Ipratropium (Duoneb 3.0-0.5 Mg/3 Ml) 3 ml NEB Q4HRRT PRN PRN Reason: Shortness Of Breath/wheezing Sodium Chloride (Normal Saline) 1,000 mls @ 100 mls/hr IV ASDIRECTED [facility] Potassium Chloride 40 meq/ (Premix) 100 mls @ 25 mls/hr IV ONETIME ONE Stop: 09/26/19 15:28 Insulin Aspart (Novolog) 0 unit SUBCUT ACBED [facility]; Protocol Last Admin: 09/26/19 10:39 Dose: 6 unit Insulin Human Regular (Novolin R) 20 unit SUBCUT ASDIRECTED [facility]; Protocol Last Admin: 09/25/19 22:12 Dose: 20 units Ondansetron HCl (Zofran Odt) 4 mg PO Q6H PRN PRN Reason: nausea, able to take PO Last Admin: 09/26/19 09:22 Dose: 4 mg Discontinued Medications Acetaminophen (Tylenol) 325 mg PO DAILY [facility] Last Admin: 09/26/19 10:03 Dose: 325 mg Acetaminophen (Tylenol) 325 mg PO DAILY PRN PRN Reason: Pain Sodium Chloride (Normal Saline) 1,000 mls @ 999 mls/hr IV BOLUS ONE Stop: 09/25/19 21:56 Last Admin: 09/25/19 21:34 Dose: 999 mls/hr Sodium Chloride (Normal Saline) 1,000 mls @ 150 mls/hr IV ASDIRECTED [facility] Last Infusion: 09/26/19 09:35 Dose: 100 mls/hr Lorazepam (Ativan) 1 mg IVPUSH ONETIME ONE Stop: 09/25/19 22:12 Last Admin: 09/25/19 22:16 Dose: 1 mg Lorazepam (Ativan) 0.5 mg IVPUSH ONETIME ONE Stop: 09/26/19 10:09 Last Admin: 09/26/19 10:22 Dose: 0.5 mg Potassium Chloride (Klor-Con M20) 40 meq PO ONETIME ONE Stop: 09/25/19 22:00 Last Admin: 09/25/19 22:12 Dose: Not Given - Exam General: Alert, Oriented, Mild Distress HEENT: Pupils Equal Neck: Supple Lungs: Clear to Auscultation, Normal Respiratory Effort Cardiovascular: Regular Rate, Regular Rhythm GI/Abdominal Exam: Soft, Non-Tender Peripheral Pulses: 3+: Dorsalis Pedis (L), Dorsalis Pedis (R) Skin: Warm, Dry Psy/Mental Status: Labile Mood, Anxious - Problem List & Annotations (1) Hyperglycemia SNOMED Code(s): 34264595 Code(s): R73.9 - HYPERGLYCEMIA, UNSPECIFIED Status: Acute Current Visit: Yes (2) Hypokalemia SNOMED Code(s): 35503083 Code(s): E87.6 - HYPOKALEMIA Status: Acute Current Visit: Yes (3) Medical non-compliance SNOMED Code(s): 219097946 Code(s): Z91.19 - PATIENT'S NONCOMPLIANCE W OTH MEDICAL TREATMENT AND REGIMEN Status: Acute Current Visit: Yes (4) Acute kidney insufficiency SNOMED Code(s): 887623070 Code(s): N28.9 - DISORDER OF KIDNEY AND URETER, UNSPECIFIED Status: Acute Current Visit: No (5) Anxiety SNOMED Code(s): 13907315 Code(s): F41.9 - ANXIETY DISORDER, UNSPECIFIED Status: Acute Current Visit: No - Problem List Review Problem List Initiated/Reviewed/Updated: Yes - My Orders Last 24 Hours: My Active Orders 09/25/19 22:41 Consult to Diabetic Nurse Specialist [CONS] Routine Albuterol/Ipratropium [DuoNeb 3.0-0.5 MG/3 ML] 3 ml NEB Q4HRRT PRN Ondansetron [Zofran ODT] 4 mg PO Q6H PRN Resuscitation Status Routine 09/25/19 22:42 Oxygen Therapy [RC] PRN VTE/DVT Education [RC] PER UNIT ROUTINE Vital Signs [RC] Q4H 09/25/19 22:45 RT Aerosol Therapy [RC] ASDIRECTED 09/25/19 22:49 Accu Check [Blood Glucose Check, Bedside] [RC] Q4HR 09/26/19 07:30 Insulin Aspart [NovoLOG] See Protocol SUBCUT ACBED 09/26/19 08:00 Blood Glucose Check, Bedside [RC] WITHMEALSANDBED 09/26/19 09:30 Sodium Chloride 0.9% [Normal Saline] 1,000 ml IV ASDIRECTED 09/26/19 10:17 Acetaminophen [Tylenol] 325 mg PO Q4H PRN 09/26/19 11:29 Potassium Chloride Riders [KCL 40 MEQ in Water 100 ML] 40 meq Premix Bag 1 bag IV ONETIME 09/26/19 Breakfast [place] Diet [DIET] - Plan Plan:: Patient comes in with c/o N/V, leg swelling Was found to be hyperglycemic, No DKA, No Acidosis Received IVF bolus and SubQ insulin CARLOS EDUARDO resolved Will stop fluids , tolerate liquid diet this AM change SSI to moderate dose, start Levemir bedtime Frequent Accu checks Monitor and replete electrolytes as needed Zofran for nausea Patient seems to have uncontrolled anxiety has been asking for Ativan often, will administer as necessary
[2019-09-26] MEDS ORDERED: Sodium Chloride 0.9% with KCl 1,000 ML IV SCH (11:45)
[2019-09-26] MEDS ORDERED: Magnesium Oxide 400 MG Tab PO ONE (13:24)
[2019-09-26] MEDS ORDERED: Insulin Aspart 100 Units/ML 3 ML Pen SUBCUT SCH (20:00)
[2019-09-26] MEDS ORDERED: Insulin Detemir 100 Units/ML 3 ML Pen SUBCUT SCH (21:00)
[2019-09-26] MEDS ORDERED: LORazepam 1 MG Tab PO ONE (22:49)
[2019-09-27 07:12] LABS: CARBON DIOXIDE,CO2 31.8 mmol/L (21.0-32.0); POTASSIUM,K 3.4 mmol/L (3.5-5.1)
[2019-09-27 07:35] VITALS: BP 141/74; PULSE 79
[2019-09-27] MEDS ORDERED: Potassium Chloride 20 MEQ Tab.ER PO ONE (07:42)
[2019-09-27] MEDS: Insulin Aspart 100 Units/ML 3 ML Pen SUBCUT SCH ×2 (08:37→11:43)
[2019-09-27 09:41] LABS: HEMOGLOBIN A1C > 14.0 % (4.5-6.2)
--- NOTE | 2019-09-27 09:59 | PCM.DCSUM1 ---
Discharge Summary - Hospital Course Free Text/Narrative:: 54 y/o female with history of type 2 diabetes, medication non-compliance who presented to the ER complaining of lower extremity edema and weakness. She was found to be hyperglycemic 400's, A1c >14. ABG was negative for acidosis. No ketonuria. Patient was started on Levemir 10 U SQ at bedtime and ISS. She responded fairly well. Her BGs were down to 180-200. In addition, she was started on metoclopramide for suspected diabetic gastroparesis. Electrolytes were replaced. She was tolerating diabetic diet. She was prescribed Levemir 10 Units SQ at night and Novolog 3 Units TIDAC. In addition, she was given insulin pens at time of discharge. She was advised to follow-up with her PCP within 1-2 weeks. - Discharge Data Discharge Date: 09/27/19 Discharge Disposition: Home, Self-Care 01 Condition: Stable - Referral to Home Health Primary Care Physician: PCP None - Patient Summary/Data Consults: Consultations 09/25/19 22:41 Consult to Diabetic Nurse Specialist [CONS] Routine - Patient Instructions Diet: Diabetic Diet Activity: As Tolerated Notify Provider of: Fever, Increased Pain, Swelling and Redness, Nausea and/or Vomiting - Discharge Plan *PRESCRIPTION DRUG MONITORING PROGRAM REVIEWED*: Not Applicable *COPY OF PRESCRIPTION DRUG MONITORING REPORT IN PATIENT ROSINA: Not Applicable Prescriptions/Med Rec: Insulin Aspart [NovoLOG] 3 unit SUBCUT TIDAC #1 pen Insulin Detemir [Levemir] 10 unit SUBCUT BEDTIME #1 pen Metoclopramide HCl [Metoclopramide HCl Odt] 10 mg PO TIDAC 30 Days #90 tab.rapdis Home Medications: Home Meds Insulin Aspart [NovoLOG] 3 unit SUBCUT TIDAC #1 pen 09/27/19 [Rx] Insulin Detemir [Levemir] 10 unit SUBCUT BEDTIME #1 pen 09/27/19 [Rx] Metoclopramide HCl [Metoclopramide HCl Odt] 10 mg PO TIDAC 30 Days #90 tab.rapdis 09/27/19 [Rx] Patient Handouts: Insulin Treatment for Diabetes Mellitus, Insulin Aspart; Insulin Aspart Protamine injection, Metoclopramide tablets, Hyperglycemia, Easy- to-Read, Insulin Detemir injection Referrals: [facility] [Ordering Only Provider] - - Discharge Summary/Plan Comment DC Time >30 min.: No - Patient Data Vitals - Most Recent: Last Vital Signs Temp 36.4 C 09/27/19 07:20 Pulse 79 09/27/19 07:20 Resp 16 09/27/19 07:20 BP 141/74 H 09/27/19 07:20 Pulse Ox 94 L 09/27/19 07:20 Weight - Most Recent: 62.8 kg I&O - Last 24 hours: Intake & Output 09/26/19 09/27/19 09/27/19 22:59 06:59 14:59 Intake Total 1872 940 Output Total 800 400 Balance 1072 540 Lab Results - Last 24 hrs: Laboratory Results - last 24 hr 09/26/19 09/26/19 09/26/19 Range/Units 10:00 10:00 10:29 WBC 7.84 (4.0-11.0) K/uL RBC 4.31 (4.30-5.90) M/uL Hgb 12.9 (12.0-16.0) g/dL Hct 36.5 (36.0-46.0) % MCV 84.7 (80.0-98.0) fL MCH 29.9 (27.0-32.0) pg MCHC 35.3 (31.0-37.0) g/dL RDW Std Deviation 41.1 (28.0-62.0) fl RDW Coeff of [place] 13 (11.0-15.0) % Plt Count 268 (150-400) K/uL MPV 12.20 H (7.40-12.00) fL Neut % (Auto) (48.0-80.0) % Lymph % (Auto) (16.0-40.0) % [place] % (Auto) (0.0-15.0) % Eos % (Auto) (0.0-7.0) % Baso % (Auto) (0.0-1.5) % Neut # (Auto) (1.4-5.7) K/uL Lymph # (Auto) (0.6-2.4) K/uL [place] # (Auto) (0.0-0.8) K/uL Eos # (Auto) (0.0-0.7) K/uL Baso # (Auto) (0.0-0.1) K/uL Nucleated RBC % 0.0 /100WBC Nucleated RBCs # 0 K/uL Sodium 136 (136-145) mmol/L Potassium 2.8 L (3.5-5.1) mmol/L Chloride 98 (98-107) mmol/L Carbon Dioxide 29.5 (21.0-32.0) mmol/L BUN 12 (7.0-18.0) mg/dL Creatinine 0.9 (0.6-1.0) mg/dL Est Cr Clr Drug Dosing 72.49 mL/min Estimated GFR (MDRD) > 60.0 ml/min Glucose 197 H (74-106) mg/dL POC Glucose 202 H (60-110) mg/dL Hemoglobin A1c (4.5-6.2) % Calcium 7.9 L (8.5-10.1) mg/dL Phosphorus 2.7 (2.6-4.7) mg/dL Magnesium 1.6 L (1.8-2.4) mg/dL Triglycerides (0-200) mg/dL Cholesterol (50-200) mg/dL LDL Cholesterol, Calc (60-180) mg/dL VLDL Cholesterol (5-55) mg/dL HDL Cholesterol (40-60) mg/dL Cholesterol/HDL Ratio (3.3-6.0) Lipase (73-393) U/L TSH 3rd Generation (0.36-3.74) uIU/mL 09/26/19 09/26/19 09/26/19 Range/Units 12:40 17:11 20:01 WBC (4.0-11.0) K/uL RBC (4.30-5.90) M/uL Hgb (12.0-16.0) g/dL Hct (36.0-46.0) % MCV (80.0-98.0) fL MCH (27.0-32.0) pg MCHC (31.0-37.0) g/dL RDW Std Deviation (28.0-62.0) fl RDW Coeff of [place] (11.0-15.0) % Plt Count (150-400) K/uL MPV (7.40-12.00) fL Neut % (Auto) (48.0-80.0) % Lymph % (Auto) (16.0-40.0) % [place] % (Auto) (0.0-15.0) % Eos % (Auto) (0.0-7.0) % Baso % (Auto) (0.0-1.5) % Neut # (Auto) (1.4-5.7) K/uL Lymph # (Auto) (0.6-2.4) K/uL [place] # (Auto) (0.0-0.8) K/uL Eos # (Auto) (0.0-0.7) K/uL Baso # (Auto) (0.0-0.1) K/uL Nucleated RBC % /100WBC Nucleated RBCs # K/uL Sodium (136-145) mmol/L Potassium (3.5-5.1) mmol/L Chloride (98-107) mmol/L Carbon Dioxide (21.0-32.0) mmol/L BUN (7.0-18.0) mg/dL Creatinine (0.6-1.0) mg/dL Est Cr Clr Drug Dosing mL/min Estimated GFR (MDRD) ml/min Glucose (74-106) mg/dL POC Glucose 216 H 207 H 177 H (60-110) mg/dL Hemoglobin A1c (4.5-6.2) % Calcium (8.5-10.1) mg/dL Phosphorus (2.6-4.7) mg/dL Magnesium (1.8-2.4) mg/dL Triglycerides (0-200) mg/dL Cholesterol (50-200) mg/dL LDL Cholesterol, Calc (60-180) mg/dL VLDL Cholesterol (5-55) mg/dL HDL Cholesterol (40-60) mg/dL Cholesterol/HDL Ratio (3.3-6.0) Lipase (73-393) U/L TSH 3rd Generation (0.36-3.74) uIU/mL 09/26/19 09/27/19 09/27/19 Range/Units 20:56 06:20 06:20 WBC (4.0-11.0) K/uL RBC (4.30-5.90) M/uL Hgb (12.0-16.0) g/dL Hct (36.0-46.0) % MCV (80.0-98.0) fL MCH (27.0-32.0) pg MCHC (31.0-37.0) g/dL RDW Std Deviation (28.0-62.0) fl RDW Coeff of [place] (11.0-15.0) % Plt Count (150-400) K/uL MPV (7.40-12.00) fL Neut % (Auto) (48.0-80.0) % Lymph % (Auto) (16.0-40.0) % [place] % (Auto) (0.0-15.0) % Eos % (Auto) (0.0-7.0) % Baso % (Auto) (0.0-1.5) % Neut # (Auto) (1.4-5.7) K/uL Lymph # (Auto) (0.6-2.4) K/uL [place] # (Auto) (0.0-0.8) K/uL Eos # (Auto) (0.0-0.7) K/uL Baso # (Auto) (0.0-0.1) K/uL Nucleated RBC % /100WBC Nucleated RBCs # K/uL Sodium (136-145) mmol/L Potassium (3.5-5.1) mmol/L Chloride (98-107) mmol/L Carbon Dioxide (21.0-32.0) mmol/L BUN (7.0-18.0) mg/dL Creatinine (0.6-1.0) mg/dL Est Cr Clr Drug Dosing mL/min Estimated GFR (MDRD) ml/min Glucose (74-106) mg/dL POC Glucose 177 H (60-110) mg/dL Hemoglobin A1c > 14.0 H (4.5-6.2) % Calcium (8.5-10.1) mg/dL Phosphorus (2.6-4.7) mg/dL Magnesium (1.8-2.4) mg/dL Triglycerides 148 (0-200) mg/dL Cholesterol 214 H (50-200) mg/dL LDL Cholesterol, Calc 91 (60-180) mg/dL VLDL Cholesterol 29 (5-55) mg/dL HDL Cholesterol 93 H (40-60) mg/dL Cholesterol/HDL Ratio 2.3 L (3.3-6.0) Lipase (73-393) U/L TSH 3rd Generation 1.62 (0.36-3.74) uIU/mL 09/27/19 09/27/19 09/27/19 Range/Units 06:30 06:30 06:42 WBC 6.37 (4.0-11.0) K/uL RBC 4.06 L (4.30-5.90) M/uL Hgb 11.9 L (12.0-16.0) g/dL Hct 35.2 L (36.0-46.0) % MCV 86.7 (80.0-98.0) fL MCH 29.3 (27.0-32.0) pg MCHC 33.8 (31.0-37.0) g/dL RDW Std Deviation 43.5 (28.0-62.0) fl RDW Coeff of [place]edi 14 (11.0-15.0) % Plt Count 241 (150-400) K/uL MPV 12.10 H (7.40-12.00) fL Neut % (Auto) 58.5 (48.0-80.0) % Lymph % (Auto) 31.6 (16.0-40.0) % [place] % (Auto) 7.5 (0.0-15.0) % Eos % (Auto) 1.9 (0.0-7.0) % Baso % (Auto) 0.5 (0.0-1.5) % Neut # (Auto) 3.7 (1.4-5.7) K/uL Lymph # (Auto) 2.0 (0.6-2.4) K/uL [place] # (Auto) 0.5 (0.0-0.8) K/uL Eos # (Auto) 0.1 (0.0-0.7) K/uL Baso # (Auto) 0.0 (0.0-0.1) K/uL Nucleated RBC % 0.0 /100WBC Nucleated RBCs # 0 K/uL Sodium 138 (136-145) mmol/L Potassium 3.4 L (3.5-5.1) mmol/L Chloride 103 (98-107) mmol/L Carbon Dioxide 31.8 (21.0-32.0) mmol/L BUN 11 (7.0-18.0) mg/dL Creatinine 1.0 (0.6-1.0) mg/dL Est Cr Clr Drug Dosing 65.24 mL/min Estimated GFR (MDRD) 58.2 ml/min Glucose 167 H (74-106) mg/dL POC Glucose 168 H (60-110) mg/dL Hemoglobin A1c (4.5-6.2) % Calcium 7.3 L (8.5-10.1) mg/dL Phosphorus 2.4 L (2.6-4.7) mg/dL Magnesium 1.9 (1.8-2.4) mg/dL Triglycerides (0-200) mg/dL Cholesterol (50-200) mg/dL LDL Cholesterol, Calc (60-180) mg/dL VLDL Cholesterol (5-55) mg/dL HDL Cholesterol (40-60) mg/dL Cholesterol/HDL Ratio (3.3-6.0) Lipase 55 L (73-393) U/L TSH 3rd Generation (0.36-3.74) uIU/mL Med Orders - Current: Current Medications Acetaminophen (Tylenol) 325 mg PO Q4H PRN PRN Reason: Pain Albuterol/Ipratropium (Duoneb 3.0-0.5 Mg/3 Ml) 3 ml NEB Q4HRRT PRN PRN Reason: Shortness Of Breath/wheezing Insulin Aspart (Novolog) 0 unit SUBCUT ACBED [facility]; Protocol Last Admin: 09/27/19 08:37 Dose: 2 unit Insulin Detemir (Levemir) 10 unit SUBCUT BEDTIME [facility] Last Admin: 09/26/19 20:51 Dose: 10 units Metoclopramide HCl (Reglan) 10 mg PO TIDAC [facility] Ondansetron HCl (Zofran Odt) 4 mg PO Q6H PRN PRN Reason: nausea, able to take PO Last Admin: 09/26/19 09:22 Dose: 4 mg Discontinued Medications Acetaminophen (Tylenol) 325 mg PO DAILY [facility] Last Admin: 09/26/19 10:03 Dose: 325 mg Acetaminophen (Tylenol) 325 mg PO DAILY PRN PRN Reason: Pain Sodium Chloride (Normal Saline) 1,000 mls @ 999 mls/hr IV BOLUS ONE Stop: 09/25/19 21:56 Last Admin: 09/25/19 21:34 Dose: 999 mls/hr Sodium Chloride (Normal Saline) 1,000 mls @ 150 mls/hr IV ASDIRECTED [facility] Last Infusion: 09/26/19 09:35 Dose: 100 mls/hr Sodium Chloride (Normal Saline) 1,000 mls @ 100 mls/hr IV ASDIRECTED [facility] Last Admin: 09/26/19 16:40 Dose: 100 mls/hr Potassium Chloride/Sodium Chloride (Normal Saline With 40 Meq Kcl) 1,000 mls @ 250 mls/hr IV ONETIME [facility] Stop: 09/26/19 15:44 Last Admin: 09/26/19 12:05 Dose: 250 mls/hr Insulin Aspart (Novolog) 5 unit SUBCUT TIDAC [facility] Insulin Human Regular (Novolin R) 20 unit SUBCUT ASDIRECTED [facility]; Protocol Last Admin: 09/25/19 22:12 Dose: 20 units Lorazepam (Ativan) 1 mg IVPUSH ONETIME ONE Stop: 09/25/19 22:12 Last Admin: 09/25/19 22:16 Dose: 1 mg Lorazepam (Ativan) 0.5 mg IVPUSH ONETIME ONE Stop: 09/26/19 10:09 Last Admin: 09/26/19 10:22 Dose: 0.5 mg Lorazepam (Ativan) 1 mg PO ONETIME ONE Stop: 09/26/19 22:50 Last Admin: 09/26/19 23:06 Dose: 1 mg Magnesium Oxide (Magnesium Oxide) 800 mg PO ONETIME ONE Stop: 09/26/19 13:25 Last Admin: 09/26/19 14:14 Dose: 800 mg Potassium Chloride (Klor-Con M20) 40 meq PO ONETIME ONE Stop: 09/25/19 22:00 Last Admin: 09/25/19 22:12 Dose: Not Given Potassium Chloride (Klor-Con M20) 40 meq PO ONETIME ONE Stop: 09/27/19 07:43 Last Admin: 09/27/19 09:06 Dose: Not Given
[2019-09-27] MEDS ORDERED: Metoclopramide 10 MG Tab PO SCH (11:30)
== END 2019-09-27 12:00 | disposition home or self-care (01) ==
LOC: MW.ED 20:33 → MW.MS 22:08
PROVIDERS: ADMIT Student in an Organized Health Care Education/Training Program; ATTEND Student in an Organized Health Care Education/Training Program
DX: R60.0 Localized edema (principal); R53.1 Weakness; E11.65 Type 2 diabetes mellitus with hyperglycemia; E87.6 Hypokalemia; N28.9 Disorder of kidney and ureter, unspecified; F41.9 Anxiety disorder, unspecified; F17.210 Nicotine dependence, cigarettes, uncomplicated; G43.909 Migraine, unspecified, not intractable, without status migrainosus; Z91.040 Latex allergy status; Z88.2 Allergy status to sulfonamides; Z91.19 Patient's noncompliance with other medical treatment and regimen
CPT/HCPCS: 36415; 71045; 80048; 80053; 80061; 82009; 82803; 82962; 83036; 83690; 83735; 83880; 84100; 84443; 85025; 85027; 93005; 96361; 96365; 96366; 96375; 96376; 99285; A9270; G0378; J1815; J2060; J3480; J7040; 96374; 99284

== ENCOUNTER 2019-10-06 15:58 | Observation (INO) | payer MEDICAID ==
[2019-10-06] MEDS ORDERED: Polyethylene Glycol 3350 Powder 17 GM Packet PO PRN (17:30)
[2019-10-06] MEDS ORDERED: Ondansetron 4 MG Tab.DIS PO PRN (17:30)
[2019-10-06] MEDS ORDERED: Ondansetron 4 MG/2 ML SDV IVPUSH PRN (17:30)
[2019-10-06] MEDS ORDERED: Bisacodyl 5 MG Tab PO PRN (17:30)
[2019-10-06] MEDS ORDERED: Morphine 2 MG/ML Syringe IVPUSH PRN (17:30)
[2019-10-06] MEDS ORDERED: Acetaminophen 325 MG Tab PO PRN (17:30)
[2019-10-06] MEDS ORDERED: Acetaminophen/HYDROcodone 325-5 MG Tab PO PRN (17:30)
--- NOTE | 2019-10-06 17:55 | PCM.HP.2 ---
H&P History of Present Illness - General Date of Service: 10/06/19 Admit Problem/Dx: Admission Diagnosis/Problem Admission Diagnosis/Problem Edema of extremities - History of Present Illness Initial Comments - Free Text/Narative: 54 y/o female with a history of uncontrolled diabetes type 2, current smoker who was admitted from her PCP's clinic due to anasarca up to mid abdomen and generalized weakness. Patient was recently hospitalized for a similar symptoms about 1 week ago. She states that since being discharged she has been taking her lantus 10 units at bedtime and novolog 3 unit TID with meals. 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 States that she has been eating small portions through out the day. However, has been feeling nauseous and has noticed her lower extremities getting more edematous up to her pelvis. Has been elevating her legs up during the day and at night but not helping. She denies any chest pain. She does endorse some dyspnea with exertion. No abdominal pain, dysuria, diarrhea. She is constipated since she states she has not had a bowel movement for the past 4-5 days. - Related Data Allergies/Adverse Reactions: Allergies Allergy/AdvReac Type Severity Reaction Status Date / Time latex Allergy Mild Rash Verified 10/06/19 17:10 Sulfa (Sulfonamide Allergy Unknown Airway Verified 10/06/19 17:10 Antibiotics) Tightness sulfur dioxide Allergy Airway Verified 10/06/19 17:10 Tightness Home Medications: Home Meds Insulin Aspart [NovoLOG] 3 unit SUBCUT TIDAC #1 pen 09/27/19 [Rx] Insulin Detemir [Levemir] 10 unit SUBCUT BEDTIME #1 pen 09/27/19 [Rx] Past Medical History - Past Health History Medical/Surgical History: Denies Medical/Surgical History HEENT History: Reports: Other (See Below) Other HEENT History: has top denture Cardiovascular History: Reports: Other (See Below) Other Cardiovascular History: murmur as an , hypotesnion Respiratory History: Reports: Other (See Below) Other Respiratory History: chronic daily smoker Gastrointestinal History: Reports: Helicobacter Pylori, Other (See Below) Other Gastrointestinal History: gastroparesis Genitourinary History: Reports: None 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: Musculoskeletal History: Reports: Back Pain, Chronic Neurological History: Reports: Migraines, Other (See Below) Other Neuro History: "Silent Migraines" Psychiatric History: Reports: Anxiety, Depression Endocrine/Metabolic History: Reports: Diabetes, Type II Other Endocrine/Metabolic History: Pt questions this Dx Hematologic History: Reports: Other (See Below) Other Hematologic History: States "bacterium in blood" Immunologic History: Reports: None Other Immunologic History: states was in the hospital in [place] last summer with blood infection "not sure what it was called" Oncologic (Cancer) History: Reports: Ovarian Dermatologic History: Reports: Eczema - Infectious Disease History Infectious Disease History: Reports: Chicken Pox, Measles, Mumps - Past Surgical History Head Surgeries/Procedures: Reports: None GI Surgical History: Reports: EGD Musculoskeletal Surgical History: Reports: Carpal Tunnel - History Comment History Comment: Son says she's been evaluated for these sxs in past but doesn' t recall where w/u was done (including CT of abd). No EGD ever done. The h pylori was dx'd by serologies. Social & Family History - Family History Family Medical History: Noncontributory Cardiac: Reports: Hypertension Other Cardiac Family History: Mother, Aunt Respiratory: Reports: COPD Other Respiratory Family Hisory: Uncle GI: Reports: None Neurological: Reports: Other (See Below) Other Neurological Family History: Stroke-Grandmother Endocrine/Metabolic: Reports: Diabetes, type II - Tobacco Use Smoking Status *Q: Current Every Day Smoker Years of Tobacco use: 40 Packs/Tins Daily: 1 Second Hand Smoke Exposure: No - Caffeine Use Caffeine Use: Reports: Soda - Recreational Drug Use Recreational Drug Use: No - Living Situation & Occupation Living situation: Reports: Single Occupation: Unemployed H&P Review of Systems - Review of Systems: Review Of Systems: ROS reveals no pertinent complaints other than HPI. Exam - Exam Exam: See Below - Vital Signs Vital Signs: Last Vital Signs Temp 36.0 C 10/06/19 16:23 Pulse 84 10/06/19 16:23 Resp 16 10/06/19 16:23 BP 166/97 H 10/06/19 16:23 Pulse Ox 98 10/06/19 16:23 Weight: 71.3 kg - Exam General: Alert, Oriented, Cooperative HEENT: Conjunctiva Clear, Mucosa Moist & [place] Lungs: Decreased Breath Sounds. No: Crackles, Wheezing Cardiovascular: Regular Rate, Regular Rhythm GI/Abdominal Exam: Other (non distended, non-tympanic. Non tender but feels fulls. Hypoactive bowel sounds.) Extremities: Other (3+ pitting edema in lower extremities and edema present up to lower abdomen.) Skin: Other (mottled, moist) Neuro Extensive - Mental Status: Alert, Oriented x3 - Patient Data Lab Results Last 24 hrs: Laboratory Results - last 24 hr 10/06/19 Range/Units 17:01 POC Glucose 309 H (60-110) mg/dL Result Diagrams: 10/06/19 17:41 Problem List Initiated/Reviewed/Updated: Yes Orders Last 24hrs: Active Orders 24 hr Category Date Time Status Patient Status [ADT] Routine ADT 10/06/19 17:30 Active Blood Glucose Check, Bedside [RC] QIDACANDBED Care 10/06/19 17:30 Active Intake and Output Strict [RC] ASDIRECTED Care 10/06/19 17:34 Active Intake and Output [RC] QSHIFT Care 10/06/19 17:31 Active Oxygen Therapy [RC] PRN Care 10/06/19 17:30 Active Up ad Amie [RC] ASDIRECTED Care 10/06/19 17:30 Active VTE/DVT Education [RC] PER UNIT ROUTINE Care 10/06/19 17:30 Active Vital Signs [RC] Q4H Care 10/06/19 17:30 Active [place] [employer] Diet [DIET] Diet 10/06/19 Dinner Active Chest 2V [CR] Urgent Exams 10/06/19 17:37 Ordered Echo Comp wo Cont [US] Routine Exams 10/07/19 08:00 Ordered B-TYPE NATRIURETIC PEPTIDE,BNP [CHEM] Urgent Lab 10/06/19 17:33 Ordered CBC WITH AUTO DIFF [HEME] Urgent Lab 10/06/19 17:33 Ordered COMPREHENSIVE METABOLIC PN,CMP [CHEM] Urgent Lab 10/06/19 17:33 Ordered CREATININE,URINE RAND [URCHEM] Routine Lab 10/06/19 17:36 Ordered POTASSIUM,URINE RANDOM [URCHEM] Routine Lab 10/06/19 17:36 Ordered SODIUM,URINE RANDOM [URCHEM] Routine Lab 10/06/19 17:36 Ordered UA RFX CRISSY AND CULT IF INDIC [URIN] Urgent Lab 10/06/19 17:35 Ordered UREA NITROGEN, URINE Routine Lab 10/06/19 17:36 Ordered Acetaminophen [Tylenol] Med 10/06/19 17:30 Active 650 mg PO Q4H PRN Acetaminophen/HYDROcodone [[place] 325-5 MG] Med 10/06/19 17:30 Active 1 tab PO Q4H PRN Bisacodyl [Dulcolax] Med 10/06/19 17:30 Active 5 mg PO DAILY PRN Enoxaparin [Lovenox] Med 10/06/19 17:30 Active 40 mg SUBCUT Q24H Insulin Aspart [NovoLOG] Med 10/07/19 07:30 Active See Protocol SUBCUT TIDAC Insulin Detemir [Levemir] Med 10/06/19 21:00 Active 10 unit SUBCUT BEDTIME Morphine Med 10/06/19 17:30 Active 2 mg IVPUSH Q2H PRN Nicotine [Habitrol] Med 10/07/19 09:00 Active 14 mg TRDERM DAILY Ondansetron [Zofran ODT] Med 10/06/19 17:30 Active 4 mg PO Q4H PRN Ondansetron [Zofran] Med 10/06/19 17:30 Active 4 mg IVPUSH Q4H PRN Polyethylene Glycol 3350 [MiraLAX] Med 10/06/19 17:30 Active 17 gm PO DAILY PRN Resuscitation Status Routine Resus Stat 10/06/19 17:30 Ordered Medication Orders Acetaminophen (Tylenol) 650 mg PO Q4H PRN PRN Reason: Pain (Mild 1-3)/fever Hydrocodone Bitart/Acetaminophen ([place] 325-5 Mg) 1 tab PO Q4H PRN PRN Reason: Pain (moderate 4-6) Bisacodyl (Dulcolax) 5 mg PO DAILY PRN PRN Reason: Constipation Enoxaparin Sodium (Lovenox) 40 mg SUBCUT Q24H [facility] Insulin Aspart (Novolog) 0 unit SUBCUT TIDAC [facility]; Protocol Insulin Detemir (Levemir) 10 unit SUBCUT BEDTIME [facility] Morphine Sulfate (Morphine) 2 mg IVPUSH Q2H PRN PRN Reason: Pain (severe 7-10) Stop: 10/07/19 17:32 Nicotine (Habitrol) 14 mg TRDERM DAILY [facility] Ondansetron HCl (Zofran Odt) 4 mg PO Q4H PRN PRN Reason: nausea, able to take PO Ondansetron HCl (Zofran) 4 mg IVPUSH Q4H PRN PRN Reason: Nausea Polyethylene Glycol (Miralax) 17 gm PO DAILY PRN PRN Reason: Constipation Assessment/Plan Comment:: A: 1. Anasarca 2. Uncontrolled diabetes type 2 3. Hypertension 4. Generalized weakness P: 1. Anasarca, multifactorial. Likely secondary to her kidneys on top of low albumin. However, will order Echo. In addition, will get labs, UA to assess kidney function. For now will hold on any diuretics until labs. Will fluid restrict 2 L/daily for now and strict I/O. 2. DM2- will continue with levemir 10 units SQ at night and ISS. Her most recent A1c >14.
--- NOTE | 2019-10-06 18:12 | CR ---
INDICATION: Shortness of breath w/exertion, anasarca, swollen from waist down TECHNIQUE: Chest radiograph 2 views COMPARISON: 09/25/2019 FINDINGS: Mediastinum: The mediastinum is normal in appearance. The heart silhouette is normal in size and morphology. Lung: Mild reticulonodular opacities are present in the lung bases apices, not significantly changed from prior exam. No sign of pleural effusion seen. No pneumothorax is identified. Bone and Soft tissue: Unremarkable for age. IMPRESSION: 1. Mild reticulonodular opacities are present in the lung bases apices, not significantly changed from prior exam. Findings may be due to interstitial lung disease or interstitial edema. Dictated by Lv Warren MD @ 10/06/2019 6:09:48 PM Dictated by: Lv Warren MD @ 10/06/2019 18:10:50 (Electronically Signed)
[2019-10-06] MEDS: Enoxaparin 40 MG/0.4 ML Syringe SUBCUT SCH (18:25)
[2019-10-06] MEDS: Insulin Aspart 100 Units/ML 3 ML Pen SUBCUT SCH (18:26)
[2019-10-06 18:34] LABS: BLOOD UREA NITROGEN,BUN 19 mg/dL (7.0-18.0); CARBON DIOXIDE,CO2 28.7 mmol/L (21.0-32.0); CHLORIDE,CL 102 mmol/L (98-107); GLUCOSE RANDOM 297 mg/dL (74-106); POTASSIUM,K 3.6 mmol/L (3.5-5.1); SODIUM,NA 137 mmol/L (136-145)
[2019-10-06] MEDS ORDERED: Furosemide 40 MG/4 ML VIAL IVPUSH ONE (19:35)
[2019-10-06] MEDS: Insulin Detemir 100 Units/ML 3 ML Pen SUBCUT SCH (21:00)
[2019-10-07] MEDS ORDERED: Insulin Aspart 100 Units/ML 3 ML Pen SUBCUT SCH (07:30)
[2019-10-07] MEDS: Insulin Aspart 100 Units/ML 3 ML Pen SUBCUT SCH ×3 (07:40→16:47)
[2019-10-07] MEDS: Nicotine 14 MG/24 Hr Patch TRDERM SCH (08:50)
[2019-10-07 09:25] LABS: CARBON DIOXIDE,CO2 31.2 mmol/L (21.0-32.0); POTASSIUM,K 3.2 mmol/L (3.5-5.1)
[2019-10-07] MEDS ORDERED: Lisinopril 10 MG Tab PO SCH (09:30)
--- NOTE | 2019-10-07 10:23 | PCM.PN ---
- General Info Date of Service: 10/07/19 Subjective Update: 54 y/o female with history of uncontrolled DM2 who was admitted for worsening lower extremity swelling and leg pain. No acute events overnight. Still having some lower extremity pain when walking. - Patient Data Vitals - Most Recent: Last Vital Signs Temp 36.9 C 10/07/19 09:00 Pulse 83 10/07/19 09:00 Resp 18 10/07/19 09:00 BP 143/79 H 10/07/19 09:45 Pulse Ox 99 10/07/19 09:00 Weight - Most Recent: 70.534 kg I&O - Last 24 Hours: Intake & Output 10/06/19 10/07/19 10/07/19 22:59 06:59 14:59 Output Total 1300 Balance -1300 Lab Results Last 24 Hours: Laboratory Results - last 24 hr 10/06/19 10/06/19 10/06/19 Range/Units 17:01 17:41 17:41 WBC 6.90 (4.0-11.0) K/uL RBC 3.76 L (4.30-5.90) M/uL Hgb 11.2 L (12.0-16.0) g/dL Hct 32.8 L (36.0-46.0) % MCV 87.2 (80.0-98.0) fL MCH 29.8 (27.0-32.0) pg MCHC 34.1 (31.0-37.0) g/dL RDW Std Deviation 43.4 (28.0-62.0) fl RDW Coeff of [place] 14 (11.0-15.0) % Plt Count 200 (150-400) K/uL MPV 11.90 (7.40-12.00) fL Neut % (Auto) 65.2 (48.0-80.0) % Lymph % (Auto) 26.1 (16.0-40.0) % Wayne % (Auto) 6.5 (0.0-15.0) % Eos % (Auto) 1.9 (0.0-7.0) % Baso % (Auto) 0.3 (0.0-1.5) % Neut # (Auto) 4.5 (1.4-5.7) K/uL Lymph # (Auto) 1.8 (0.6-2.4) K/uL Wayne # (Auto) 0.5 (0.0-0.8) K/uL Eos # (Auto) 0.1 (0.0-0.7) K/uL Baso # (Auto) 0.0 (0.0-0.1) K/uL Nucleated RBC % 0.0 /100WBC Nucleated RBCs # 0 K/uL Sodium 137 (136-145) mmol/L Potassium 3.6 (3.5-5.1) mmol/L Chloride 102 (98-107) mmol/L Carbon Dioxide 28.7 (21.0-32.0) mmol/L BUN 19 H (7.0-18.0) mg/dL Creatinine 0.9 (0.6-1.0) mg/dL Est Cr Clr Drug Dosing 73.76 mL/min Estimated GFR (MDRD) > 60.0 ml/min Glucose 297 H (74-106) mg/dL POC Glucose 309 H (60-110) mg/dL Calcium 8.0 L (8.5-10.1) mg/dL Total Bilirubin 0.3 (0.2-1.0) mg/dL AST 27 (15-37) IU/L ALT 26 (14-63) IU/L Alkaline Phosphatase 136 H (46-116) U/L B-Natriuretic Peptide (<100) PG/ML Total Protein 5.0 L (6.4-8.2) g/dL Albumin 1.6 L (3.4-5.0) g/dL Globulin 3.4 (2.6-4.0) g/dL Albumin/Globulin Ratio 0.5 L (0.9-1.6) Urine Color Urine Appearance Urine pH (5.0-8.0) Ur Specific [place] (1.001-1.035) Urine Protein (NEGATIVE) mg/dL Urine Glucose (UA) (NEGATIVE) mg/dL Urine Ketones (NEGATIVE) mg/dL Urine Occult Blood (NEGATIVE) Urine Nitrite (NEGATIVE) Urine Bilirubin (NEGATIVE) Urine Urobilinogen (<2.0) EU/dL Ur Leukocyte Esterase (NEGATIVE) Urine RBC (0-2/HPF) Urine WBC (0-5/HPF) Ur Epithelial Cells (NONE-FEW) Urine Bacteria (NEGATIVE) Urine Mucus (NONE-MOD) Ur Random Creatinine mg/dL U Random Total Protein (<11.9) mg/dL Ur Random Sodium (40.0-220.0) mmol/L Ur Random Potassium mmol/L Protein/Creatinin Ratio 10/06/19 10/06/19 10/06/19 Range/Units 17:41 20:40 20:40 WBC (4.0-11.0) K/uL RBC (4.30-5.90) M/uL Hgb (12.0-16.0) g/dL Hct (36.0-46.0) % MCV (80.0-98.0) fL MCH (27.0-32.0) pg MCHC (31.0-37.0) g/dL RDW Std Deviation (28.0-62.0) fl RDW Coeff of [place] (11.0-15.0) % Plt Count (150-400) K/uL MPV (7.40-12.00) fL Neut % (Auto) (48.0-80.0) % Lymph % (Auto) (16.0-40.0) % Wayne % (Auto) (0.0-15.0) % Eos % (Auto) (0.0-7.0) % Baso % (Auto) (0.0-1.5) % Neut # (Auto) (1.4-5.7) K/uL Lymph # (Auto) (0.6-2.4) K/uL Wayne # (Auto) (0.0-0.8) K/uL Eos # (Auto) (0.0-0.7) K/uL Baso # (Auto) (0.0-0.1) K/uL Nucleated RBC % /100WBC Nucleated RBCs # K/uL Sodium (136-145) mmol/L Potassium (3.5-5.1) mmol/L Chloride (98-107) mmol/L Carbon Dioxide (21.0-32.0) mmol/L BUN (7.0-18.0) mg/dL Creatinine (0.6-1.0) mg/dL Est Cr Clr Drug Dosing mL/min Estimated GFR (MDRD) ml/min Glucose (74-106) mg/dL POC Glucose (60-110) mg/dL Calcium (8.5-10.1) mg/dL Total Bilirubin (0.2-1.0) mg/dL AST (15-37) IU/L ALT (14-63) IU/L Alkaline Phosphatase (46-116) U/L B-Natriuretic Peptide 89 (<100) PG/ML Total Protein (6.4-8.2) g/dL Albumin (3.4-5.0) g/dL Globulin (2.6-4.0) g/dL Albumin/Globulin Ratio (0.9-1.6) Urine Color YELLOW Urine Appearance SLT CLOUDY Urine pH 6.0 (5.0-8.0) Ur Specific [place] 1.025 (1.001-1.035) Urine Protein >=300 H (NEGATIVE) mg/dL Urine Glucose (UA) >=1000 (NEGATIVE) mg/dL Urine Ketones NEGATIVE (NEGATIVE) mg/dL Urine Occult Blood MODERATE H (NEGATIVE) Urine Nitrite NEGATIVE (NEGATIVE) Urine Bilirubin NEGATIVE (NEGATIVE) Urine Urobilinogen 0.2 (<2.0) EU/dL Ur Leukocyte Esterase NEGATIVE (NEGATIVE) Urine RBC 0-3 (0-2/HPF) Urine WBC 7-9 (0-5/HPF) Ur Epithelial Cells FEW (NONE-FEW) Urine Bacteria FEW (NEGATIVE) Urine Mucus LIGHT (NONE-MOD) Ur Random Creatinine 62.9 mg/dL U Random Total Protein (<11.9) mg/dL Ur Random Sodium 100.0 (40.0-220.0) mmol/L Ur Random Potassium 26.9 mmol/L Protein/Creatinin Ratio 10/06/19 10/06/19 10/07/19 Range/Units 20:40 20:53 04:19 WBC (4.0-11.0) K/uL RBC (4.30-5.90) M/uL Hgb (12.0-16.0) g/dL Hct (36.0-46.0) % MCV (80.0-98.0) fL MCH (27.0-32.0) pg MCHC (31.0-37.0) g/dL RDW Std Deviation (28.0-62.0) fl RDW Coeff of [place] (11.0-15.0) % Plt Count (150-400) K/uL MPV (7.40-12.00) fL Neut % (Auto) (48.0-80.0) % Lymph % (Auto) (16.0-40.0) % Wayne % (Auto) (0.0-15.0) % Eos % (Auto) (0.0-7.0) % Baso % (Auto) (0.0-1.5) % Neut # (Auto) (1.4-5.7) K/uL Lymph # (Auto) (0.6-2.4) K/uL Wayne # (Auto) (0.0-0.8) K/uL Eos # (Auto) (0.0-0.7) K/uL Baso # (Auto) (0.0-0.1) K/uL Nucleated RBC % /100WBC Nucleated RBCs # K/uL Sodium (136-145) mmol/L Potassium (3.5-5.1) mmol/L Chloride (98-107) mmol/L Carbon Dioxide (21.0-32.0) mmol/L BUN (7.0-18.0) mg/dL Creatinine (0.6-1.0) mg/dL Est Cr Clr Drug Dosing mL/min Estimated GFR (MDRD) ml/min Glucose (74-106) mg/dL POC Glucose 216 H 152 H (60-110) mg/dL Calcium (8.5-10.1) mg/dL Total Bilirubin (0.2-1.0) mg/dL AST (15-37) IU/L ALT (14-63) IU/L Alkaline Phosphatase (46-116) U/L B-Natriuretic Peptide (<100) PG/ML Total Protein (6.4-8.2) g/dL Albumin (3.4-5.0) g/dL Globulin (2.6-4.0) g/dL Albumin/Globulin Ratio (0.9-1.6) Urine Color Urine Appearance Urine pH (5.0-8.0) Ur Specific [place] (1.001-1.035) Urine Protein (NEGATIVE) mg/dL Urine Glucose (UA) (NEGATIVE) mg/dL Urine Ketones (NEGATIVE) mg/dL Urine Occult Blood (NEGATIVE) Urine Nitrite (NEGATIVE) Urine Bilirubin (NEGATIVE) Urine Urobilinogen (<2.0) EU/dL Ur Leukocyte Esterase (NEGATIVE) Urine RBC (0-2/HPF) Urine WBC (0-5/HPF) Ur Epithelial Cells (NONE-FEW) Urine Bacteria (NEGATIVE) Urine Mucus (NONE-MOD) Ur Random Creatinine 65.8 mg/dL U Random Total Protein 708.8 H (<11.9) mg/dL Ur Random Sodium (40.0-220.0) mmol/L Ur Random Potassium mmol/L Protein/Creatinin Ratio 10.8 10/07/19 10/07/19 10/07/19 Range/Units 05:57 08:46 08:46 WBC 5.97 (4.0-11.0) K/uL RBC 3.62 L (4.30-5.90) M/uL Hgb 10.8 L (12.0-16.0) g/dL Hct 31.7 L (36.0-46.0) % MCV 87.6 (80.0-98.0) fL MCH 29.8 (27.0-32.0) pg MCHC 34.1 (31.0-37.0) g/dL RDW Std Deviation 43.7 (28.0-62.0) fl RDW Coeff of [place] 14 (11.0-15.0) % Plt Count 199 (150-400) K/uL MPV 11.90 (7.40-12.00) fL Neut % (Auto) 62.0 (48.0-80.0) % Lymph % (Auto) 28.1 (16.0-40.0) % Wayne % (Auto) 7.4 (0.0-15.0) % Eos % (Auto) 2.0 (0.0-7.0) % Baso % (Auto) 0.5 (0.0-1.5) % Neut # (Auto) 3.7 (1.4-5.7) K/uL Lymph # (Auto) 1.7 (0.6-2.4) K/uL Wayne # (Auto) 0.4 (0.0-0.8) K/uL Eos # (Auto) 0.1 (0.0-0.7) K/uL Baso # (Auto) 0.0 (0.0-0.1) K/uL Nucleated RBC % 0.0 /100WBC Nucleated RBCs # 0 K/uL Sodium 142 (136-145) mmol/L Potassium 3.2 L (3.5-5.1) mmol/L Chloride 104 (98-107) mmol/L Carbon Dioxide 31.2 (21.0-32.0) mmol/L BUN 20 H (7.0-18.0) mg/dL Creatinine 1.0 (0.6-1.0) mg/dL Est Cr Clr Drug Dosing 66.39 mL/min Estimated GFR (MDRD) 58.2 ml/min Glucose 140 H (74-106) mg/dL POC Glucose 128 H (60-110) mg/dL Calcium 8.0 L (8.5-10.1) mg/dL Total Bilirubin (0.2-1.0) mg/dL AST (15-37) IU/L ALT (14-63) IU/L Alkaline Phosphatase (46-116) U/L B-Natriuretic Peptide (<100) PG/ML Total Protein (6.4-8.2) g/dL Albumin (3.4-5.0) g/dL Globulin (2.6-4.0) g/dL Albumin/Globulin Ratio (0.9-1.6) Urine Color Urine Appearance Urine pH (5.0-8.0) Ur Specific [place] (1.001-1.035) Urine Protein (NEGATIVE) mg/dL Urine Glucose (UA) (NEGATIVE) mg/dL Urine Ketones (NEGATIVE) mg/dL Urine Occult Blood (NEGATIVE) Urine Nitrite (NEGATIVE) Urine Bilirubin (NEGATIVE) Urine Urobilinogen (<2.0) EU/dL Ur Leukocyte Esterase (NEGATIVE) Urine RBC (0-2/HPF) Urine WBC (0-5/HPF) Ur Epithelial Cells (NONE-FEW) Urine Bacteria (NEGATIVE) Urine Mucus (NONE-MOD) Ur Random Creatinine mg/dL U Random Total Protein (<11.9) mg/dL Ur Random Sodium (40.0-220.0) mmol/L Ur Random Potassium mmol/L Protein/Creatinin Ratio Med Orders - Current: Current Medications Acetaminophen (Tylenol) 650 mg PO Q4H PRN PRN Reason: Pain (Mild 1-3)/fever Bisacodyl (Dulcolax) 5 mg PO DAILY PRN PRN Reason: Constipation Enoxaparin Sodium (Lovenox) 40 mg SUBCUT Q24H [facility] Last Admin: 10/06/19 18:25 Dose: 40 mg Insulin Aspart (Novolog) 0 unit SUBCUT TIDAC [facility]; Protocol Last Admin: 10/07/19 07:40 Dose: Not Given Insulin Detemir (Levemir) 10 unit SUBCUT BEDTIME [facility] Last Admin: 10/06/19 21:00 Dose: 10 units Lisinopril (Prinivil) 10 mg PO DAILY [facility] Last Admin: 10/07/19 09:45 Dose: 10 mg Nicotine (Habitrol) 14 mg TRDERM DAILY [facility] Last Admin: 10/07/19 08:50 Dose: Not Given Ondansetron HCl (Zofran Odt) 4 mg PO Q4H PRN PRN Reason: nausea, able to take PO Ondansetron HCl (Zofran) 4 mg IVPUSH Q4H PRN PRN Reason: Nausea Polyethylene Glycol (Miralax) 17 gm PO DAILY PRN PRN Reason: Constipation Discontinued Medications Hydrocodone Bitart/Acetaminophen ([place] 325-5 Mg) 1 tab PO Q4H PRN PRN Reason: Pain (moderate 4-6) Furosemide (Lasix) 40 mg IVPUSH NOW ONE Stop: 10/06/19 19:36 Last Admin: 10/06/19 20:56 Dose: 40 mg Insulin Aspart (Novolog) 0 unit SUBCUT TIDAC [facility]; Protocol Morphine Sulfate (Morphine) 2 mg IVPUSH Q2H PRN PRN Reason: Pain (severe 7-10) Stop: 10/07/19 17:32 - Exam General: Alert, Oriented, Cooperative, No Acute Distress Lungs: Clear to Auscultation, Normal Respiratory Effort. No: Crackles, Wheezing Cardiovascular: Regular Rate, Regular Rhythm GI/Abdominal Exam: Normal Bowel Sounds, Soft, Non-Tender, No Distention Extremities: Other (bilateral 2 + pitting edema) - Problem List Review Problem List Initiated/Reviewed/Updated: Yes - My Orders Last 24 Hours: My Active Orders 10/06/19 17:30 Patient Status [ADT] Routine Blood Glucose Check, Bedside [RC] QIDACANDBED Oxygen Therapy [] PRN Up ad Amie [RC] ASDIRECTED VTE/DVT Education [RC] PER UNIT ROUTINE Vital Signs [RC] Q4H Acetaminophen [Tylenol] 650 mg PO Q4H PRN Bisacodyl [Dulcolax] 5 mg PO DAILY PRN Enoxaparin [Lovenox] 40 mg SUBCUT Q24H Ondansetron [Zofran ODT] 4 mg PO Q4H PRN Ondansetron [Zofran] 4 mg IVPUSH Q4H PRN Polyethylene Glycol 3350 [MiraLAX] 17 gm PO DAILY PRN Resuscitation Status Routine 10/06/19 17:34 Intake and Output Strict [RC] Q12H 10/06/19 17:51 Insulin Aspart [NovoLOG] See Protocol SUBCUT TIDAC 10/06/19 19:36 Daily Weight [Height and Weight] [RC] DAILY 10/06/19 19:38 Elevate Extremity [RC] DAILY 10/06/19 20:40 UREA NITROGEN, URINE Routine 10/06/19 21:00 Insulin Detemir [Levemir] 10 unit SUBCUT BEDTIME 10/07/19 08:00 Abdomen Ltd [US] Routine Echo Comp wo Cont [US] Routine 10/07/19 08:03 Consult to Retail Coordinator [Consult to Diabetic Nurse Specialist] [CONS] Routine PROTEIN,URINE 24HR [URCHEM] Routine 10/07/19 08:43 Consult to Physical Therapy [PT Evaluation and Treatment] [CONS] Routine 10/07/19 09:00 Nicotine [Habitrol] 14 mg TRDERM DAILY 10/07/19 09:30 Lisinopril [Prinivil] 10 mg PO DAILY 10/07/19 Breakfast [place] [employer] Diet [DIET] 10/07/19 Lunch 2 Gram Sodium Diet [DIET] 10/08/19 05:11 BASIC METABOLIC PANEL,BMP [CHEM] AM CBC WITH AUTO DIFF [HEME] AM - Plan Plan:: A: 1. Nephrotic syndrome 2. Uncontrolled diabetes type 2 3. Hypokalemia 4. Hypertension P: 1. Nephrotic syndrome- protein/creatinine ratio of 10. Will start lisinopril 10 mg PO daily. strict I/O's. 2. DM2- will continue with levemir 10 units SQ at night and ISS. Her most recent A1c >14. 3. Hypokalemia- replace with KCl 40 mEq once. Check Mg level. Dispo: plan to DC tomorrow.
[2019-10-07] MEDS: Potassium Chloride 10% 20 MEQ/15 ML Soln 30 ML UD Cup PO ONE ×2 (10:49→10:57)
[2019-10-07] MEDS ORDERED: Potassium Chloride 20 MEQ Tab.ER PO SCH (11:15)
[2019-10-07] MEDS ORDERED: Magnesium Sulfate/Water 2 GM in Premix Bag 1 BAG IV ONE (11:30)
[2019-10-07] MEDS: Potassium Chloride 10 MEQ Tab.ER PO SCH ×2 (11:30→16:29)
--- NOTE | 2019-10-07 13:43 | US ---
EXAM DATE: 10/06/19 PATIENT'S AGE: 54 Limited abdominal ultrasound: Multiple real-time images of the upper right abdomen were obtained. Comparison: Prior CT abdomen and pelvis study of 06/08/18. Findings: Liver shows no focal abnormality. Right kidney shows no hydronephrosis. Small hypoechoic area is noted within the mid to upper right kidney most likely representing small cyst measuring 1.0 cm. Right kidney has a length of 10.9 cm. Pancreas is incompletely seen. Visualized portions of the pancreas are within normal limits. Gallbladder contains no shadowing gallstones. No gallbladder wall thickening or biliary duct dilatation is seen. Impression: 1. Small cyst within the right kidney measuring 1.0 cm. 2. No additional abnormality is seen on right upper quadrant abdominal ultrasound exam. Diagnostic code #2 Report Signed by Proxy. [facility]
--- NOTE | 2019-10-07 13:45 | US ---
EXAM DATE: 10/06/19 PATIENT'S AGE: 54 Bilateral lower extremity deep venous ultrasound: Duplex and color flow imaging was obtained of the right and left common femoral, superficial femoral, popliteal and posterior tibial veins. Diffuse subcutaneous edema seen within both lower extremities. Lymph nodes noted within the upper thigh region on both sides which are mildly prominent. Normal phasic flow, augmentation and compression is seen. Impression: 1. Subcutaneous edema within both lower extremities. 2. No evidence of deep venous thrombosis within the right lower or left lower extremities. 3. Slightly prominent lymph nodes within both upper thigh regions. This may relate to previous inflammatory process but please correlate that these do not appear suspicious by physical exam. Diagnostic code #3 Report Signed by Proxy. [facility]
[2019-10-07] MEDS: Enoxaparin 40 MG/0.4 ML Syringe SUBCUT SCH (16:30)
[2019-10-07] MEDS ORDERED: Furosemide 100 MG/10 ML SDV IVPUSH ONE (17:00)
[2019-10-07] MEDS: Insulin Detemir 100 Units/ML 3 ML Pen SUBCUT SCH (20:01)
[2019-10-08 04:19] VITALS: PULSE 87
[2019-10-08 05:36] LABS: CARBON DIOXIDE,CO2 28.9 mmol/L (21.0-32.0); POTASSIUM,K 3.4 mmol/L (3.5-5.1)
[2019-10-08] MEDS: Insulin Aspart 100 Units/ML 3 ML Pen SUBCUT SCH (07:24)
[2019-10-08] MEDS ORDERED: Lisinopril 10 MG Tab PO SCH (09:00)
[2019-10-08 09:12] VITALS: BP 124/77
[2019-10-08] MEDS: Nicotine 14 MG/24 Hr Patch TRDERM SCH (09:13)
--- NOTE | 2019-10-08 10:56 | PCM.DCSUM1 ---
<Rodo Staley - Last Filed: 10/08/19 10:51> Discharge Summary - Hospital Course Free Text/Narrative:: 54 y/o female with history of uncontrolled diabetes type 2 who was directly admitted from PCP's clinic due to worsening swelling, lower extremity pain. Patient was found to have 2+ pitting edema up to her pelvis. Urinalysis suggested she had nephrotic syndrome with urine protein/creatinine ratio of 10.0 , likely due to uncontrolled DM2. She was started on lisinopril and was diuresed with good urine output. Bilateral lower extremity ultrasound was negative for DVT. At time of discharge, patient was feeling better. She was discharged home on lisinopril 20 mg PO daily, lasix 20 mg PO daily, KCl 10 mEq PO daily and instructions to continue taking her insulin with follow-up with nursing educator in 1-2 weeks. In addition, she was referred to nephrology. She will need to follow-up with her PCP as outpatient. - Discharge Data Discharge Date: 10/08/19 Discharge Disposition: Home, Self-Care 01 Condition: Good - Referral to Home Health Primary Care Physician: Lew Trujillo, PT - Patient Summary/Data Consults: Consultations 10/07/19 08:03 Consult to Vacuum Truck Driver [Consult to Diabetic Nurse Specialist] [CONS] Routine 10/07/19 08:43 Consult to Physical Therapy [PT Evaluation and Treatment] [CONS] Routine - Patient Instructions Diet: Low Sodium, Diabetic Diet Activity: As Tolerated Notify Provider of: Fever, Increased Pain, Swelling and Redness, Nausea and/or Vomiting - Discharge Plan *PRESCRIPTION DRUG MONITORING PROGRAM REVIEWED*: Not Applicable *COPY OF PRESCRIPTION DRUG MONITORING REPORT IN PATIENT ROSINA: Not Applicable Prescriptions/Med Rec: Furosemide [Lasix] 20 mg PO DAILY #30 tab Lisinopril 20 mg PO DAILY #30 tablet Potassium Chloride 10 meq PO DAILY #30 capsule.er Home Medications: Home Meds Insulin Aspart [NovoLOG] 3 unit SUBCUT TIDAC #1 pen 09/27/19 [Rx] Insulin Detemir [Levemir] 10 unit SUBCUT BEDTIME #1 pen 09/27/19 [Rx] Furosemide [Lasix] 20 mg PO DAILY #30 tab 10/08/19 [Rx] Lisinopril 20 mg PO DAILY #30 tablet 10/08/19 [Rx] Potassium Chloride 10 meq PO DAILY #30 capsule.er 10/08/19 [Rx] Patient Handouts: Furosemide tablets, Potassium chloride tablets, extended- release tablets or capsules, Nephrotic Syndrome, Lisinopril tablets Referrals: [facility] [Outside] Rodo Staley MD [Resident] - 10/21/19 8:30 am - Discharge Summary/Plan Comment DC Time >30 min.: No - Patient Data Vitals - Most Recent: Last Vital Signs Temp 36.8 C 10/08/19 07:26 Pulse 87 10/08/19 04:19 Resp 17 10/08/19 07:26 BP 124/77 10/08/19 09:09 Pulse Ox 96 10/08/19 07:26 Weight - Most Recent: 69.4 kg I&O - Last 24 hours: Intake & Output 10/07/19 10/08/19 10/08/19 22:59 06:59 14:59 Intake Total 740 960 Output Total 950 1800 Balance -210 -840 Lab Results - Last 24 hrs: Laboratory Results - last 24 hr 10/06/19 10/07/19 10/07/19 Range/Units 20:40 11:31 16:23 WBC (4.0-11.0) K/uL RBC (4.30-5.90) M/uL Hgb (12.0-16.0) g/dL Hct (36.0-46.0) % MCV (80.0-98.0) fL MCH (27.0-32.0) pg MCHC (31.0-37.0) g/dL RDW Std Deviation (28.0-62.0) fl RDW Coeff of [place] (11.0-15.0) % Plt Count (150-400) K/uL MPV (7.40-12.00) fL Neut % (Auto) (48.0-80.0) % Lymph % (Auto) (16.0-40.0) % Patrick % (Auto) (0.0-15.0) % Eos % (Auto) (0.0-7.0) % Baso % (Auto) (0.0-1.5) % Neut # (Auto) (1.4-5.7) K/uL Lymph # (Auto) (0.6-2.4) K/uL Patrick # (Auto) (0.0-0.8) K/uL Eos # (Auto) (0.0-0.7) K/uL Baso # (Auto) (0.0-0.1) K/uL Nucleated RBC % /100WBC Nucleated RBCs # K/uL Sodium (136-145) mmol/L Potassium (3.5-5.1) mmol/L Chloride (98-107) mmol/L Carbon Dioxide (21.0-32.0) mmol/L BUN (7.0-18.0) mg/dL Creatinine (0.6-1.0) mg/dL Est Cr Clr Drug Dosing mL/min Estimated GFR (MDRD) ml/min Glucose (74-106) mg/dL POC Glucose 184 H 276 H (60-110) mg/dL Calcium (8.5-10.1) mg/dL Magnesium (1.8-2.4) mg/dL Ur Urea Nitrogen Conc 435 mg/dL 10/08/19 10/08/19 10/08/19 Range/Units 04:48 04:48 05:49 WBC 4.97 (4.0-11.0) K/uL RBC 3.49 L (4.30-5.90) M/uL Hgb 10.4 L (12.0-16.0) g/dL Hct 30.7 L (36.0-46.0) % MCV 88.0 (80.0-98.0) fL MCH 29.8 (27.0-32.0) pg MCHC 33.9 (31.0-37.0) g/dL RDW Std Deviation 44.8 (28.0-62.0) fl RDW Coeff of [place]edi 14 (11.0-15.0) % Plt Count 189 (150-400) K/uL MPV 12.10 H (7.40-12.00) fL Neut % (Auto) 56.2 (48.0-80.0) % Lymph % (Auto) 33.2 (16.0-40.0) % Patrick % (Auto) 8.0 (0.0-15.0) % Eos % (Auto) 2.0 (0.0-7.0) % Baso % (Auto) 0.6 (0.0-1.5) % Neut # (Auto) 2.8 (1.4-5.7) K/uL Lymph # (Auto) 1.7 (0.6-2.4) K/uL Patrick # (Auto) 0.4 (0.0-0.8) K/uL Eos # (Auto) 0.1 (0.0-0.7) K/uL Baso # (Auto) 0.0 (0.0-0.1) K/uL Nucleated RBC % 0.0 /100WBC Nucleated RBCs # 0 K/uL Sodium 140 (136-145) mmol/L Potassium 3.4 L (3.5-5.1) mmol/L Chloride 104 (98-107) mmol/L Carbon Dioxide 28.9 (21.0-32.0) mmol/L BUN 21 H (7.0-18.0) mg/dL Creatinine 1.0 (0.6-1.0) mg/dL Est Cr Clr Drug Dosing 66.39 mL/min Estimated GFR (MDRD) 58.2 ml/min Glucose 149 H (74-106) mg/dL POC Glucose 141 H (60-110) mg/dL Calcium 7.7 L (8.5-10.1) mg/dL Magnesium 1.9 (1.8-2.4) mg/dL Ur Urea Nitrogen Conc mg/dL Med Orders - Current: Current Medications Acetaminophen (Tylenol) 650 mg PO Q4H PRN PRN Reason: Pain (Mild 1-3)/fever Bisacodyl (Dulcolax) 5 mg PO DAILY PRN PRN Reason: Constipation Enoxaparin Sodium (Lovenox) 40 mg SUBCUT Q24H [facility] Last Admin: 10/07/19 16:30 Dose: Not Given Insulin Aspart (Novolog) 0 unit SUBCUT TIDAC [facility]; Protocol Last Admin: 10/08/19 07:24 Dose: Not Given Insulin Detemir (Levemir) 10 unit SUBCUT BEDTIME [facility] Last Admin: 10/07/19 20:01 Dose: 10 units Lisinopril (Prinivil) 20 mg PO DAILY [facility] Last Admin: 10/08/19 09:09 Dose: 20 mg Nicotine (Habitrol) 14 mg TRDERM DAILY [facility] Last Admin: 10/08/19 09:13 Dose: Not Given Ondansetron HCl (Zofran Odt) 4 mg PO Q4H PRN PRN Reason: nausea, able to take PO Ondansetron HCl (Zofran) 4 mg IVPUSH Q4H PRN PRN Reason: Nausea Polyethylene Glycol (Miralax) 17 gm PO DAILY PRN PRN Reason: Constipation Discontinued Medications Hydrocodone Bitart/Acetaminophen ([place] 325-5 Mg) 1 tab PO Q4H PRN PRN Reason: Pain (moderate 4-6) Furosemide (Lasix) 40 mg IVPUSH NOW ONE Stop: 10/06/19 19:36 Last Admin: 10/06/19 20:56 Dose: 40 mg Furosemide (Lasix) 60 mg IVPUSH ONETIME ONE Stop: 10/07/19 17:01 Last Admin: 10/07/19 17:53 Dose: 60 mg Magnesium Sulfate 2 gm/ Premix 50 mls @ 25 mls/hr IV ONETIME ONE Stop: 10/07/19 13:29 Last Admin: 10/07/19 12:05 Dose: 25 mls/hr [facility]ulin [facility]) [facility] Lisinopril (Prinivil) 10 mg PO DAILY [facility] Last Admin: 10/07/19 09:45 Dose: 10 mg Morphine Sulfate (Morphine) 2 mg IVPUSH Q2H PRN PRN Reason: Pain (severe 7-10) Stop: 10/07/19 17:32 Potassium Chloride (Potassium Chloride) 40 meq PO ONETIME ONE Stop: 10/07/19 10:31 Last Admin: 10/07/19 10:57 Dose: Not Given Potassium Chloride (Klor-Con M20) 20 meq PO Q4H [facility] Stop: 10/07/19 15:16 Last Admin: 10/07/19 12:17 Dose: Not Given Potassium Chloride (Klor-Con 10) 20 meq PO Q4H [facility] Stop: 10/07/19 15:31 Last Admin: 10/07/19 16:29 Dose: 20 meq <Jared Lua J - Last Filed: 10/08/19 15:53> Discharge Summary - Referral to Home Health Primary Care Physician: Lew Trujillo PT - Patient Summary/Data Consults: Consultations 10/07/19 08:03 Consult to Vacuum Truck Driver [Consult to Diabetic Nurse Specialist] [CONS] Routine 10/07/19 08:43 Consult to Physical Therapy [PT Evaluation and Treatment] [CONS] Routine - Patient Data Vitals - Most Recent: Last Vital Signs Temp 36.8 C 10/08/19 07:26 Pulse 87 10/08/19 04:19 Resp 17 10/08/19 07:26 BP 124/77 10/08/19 09:09 Pulse Ox 96 10/08/19 07:26 I&O - Last 24 hours: Intake & Output 10/08/19 10/08/19 10/08/19 06:59 14:59 22:59 Intake Total 960 450 Output Total 1800 800 Balance -840 -350 Lab Results - Last 24 hrs: Laboratory Results - last 24 hr 10/06/19 10/07/19 10/08/19 Range/Units 20:40 16:23 04:48 WBC 4.97 (4.0-11.0) K/uL RBC 3.49 L (4.30-5.90) M/uL Hgb 10.4 L (12.0-16.0) g/dL Hct 30.7 L (36.0-46.0) % MCV 88.0 (80.0-98.0) fL MCH 29.8 (27.0-32.0) pg MCHC 33.9 (31.0-37.0) g/dL RDW Std Deviation 44.8 (28.0-62.0) fl RDW Coeff of [place]edi 14 (11.0-15.0) % Plt Count 189 (150-400) K/uL MPV 12.10 H (7.40-12.00) fL Neut % (Auto) 56.2 (48.0-80.0) % Lymph % (Auto) 33.2 (16.0-40.0) % Patrick % (Auto) 8.0 (0.0-15.0) % Eos % (Auto) 2.0 (0.0-7.0) % Baso % (Auto) 0.6 (0.0-1.5) % Neut # (Auto) 2.8 (1.4-5.7) K/uL Lymph # (Auto) 1.7 (0.6-2.4) K/uL Patrick # (Auto) 0.4 (0.0-0.8) K/uL Eos # (Auto) 0.1 (0.0-0.7) K/uL Baso # (Auto) 0.0 (0.0-0.1) K/uL Nucleated RBC % 0.0 /100WBC Nucleated RBCs # 0 K/uL Sodium (136-145) mmol/L Potassium (3.5-5.1) mmol/L Chloride (98-107) mmol/L Carbon Dioxide (21.0-32.0) mmol/L BUN (7.0-18.0) mg/dL Creatinine (0.6-1.0) mg/dL Est Cr Clr Drug Dosing mL/min Estimated GFR (MDRD) ml/min Glucose (74-106) mg/dL POC Glucose 276 H (60-110) mg/dL Calcium (8.5-10.1) mg/dL Magnesium (1.8-2.4) mg/dL Ur Collection Duration Urine Total Volume (800-1800) Ur Total Protein Conc (0-14) mg/dL Ur Total Protein 24 Hr mg/24HRS Ur Urea Nitrogen Conc 435 mg/dL 10/08/19 10/08/19 10/08/19 Range/Units 04:48 05:49 10:40 WBC (4.0-11.0) K/uL RBC (4.30-5.90) M/uL Hgb (12.0-16.0) g/dL Hct (36.0-46.0) % MCV (80.0-98.0) fL MCH (27.0-32.0) pg MCHC (31.0-37.0) g/dL RDW Std Deviation (28.0-62.0) fl RDW Coeff of [place]edi (11.0-15.0) % Plt Count (150-400) K/uL MPV (7.40-12.00) fL Neut % (Auto) (48.0-80.0) % Lymph % (Auto) (16.0-40.0) % Patrick % (Auto) (0.0-15.0) % Eos % (Auto) (0.0-7.0) % Baso % (Auto) (0.0-1.5) % Neut # (Auto) (1.4-5.7) K/uL Lymph # (Auto) (0.6-2.4) K/uL Patrick # (Auto) (0.0-0.8) K/uL Eos # (Auto) (0.0-0.7) K/uL Baso # (Auto) (0.0-0.1) K/uL Nucleated RBC % /100WBC Nucleated RBCs # K/uL Sodium 140 (136-145) mmol/L Potassium 3.4 L (3.5-5.1) mmol/L Chloride 104 (98-107) mmol/L Carbon Dioxide 28.9 (21.0-32.0) mmol/L BUN 21 H (7.0-18.0) mg/dL Creatinine 1.0 (0.6-1.0) mg/dL Est Cr Clr Drug Dosing 66.39 mL/min Estimated GFR (MDRD) 58.2 ml/min Glucose 149 H (74-106) mg/dL POC Glucose 141 H (60-110) mg/dL Calcium 7.7 L (8.5-10.1) mg/dL Magnesium 1.9 (1.8-2.4) mg/dL Ur Collection Duration 24 Urine Total Volume 2350 H (800-1800) Ur Total Protein Conc 292.5 H (0-14) mg/dL Ur Total Protein 24 Hr 6873.7 mg/24HRS Ur Urea Nitrogen Conc mg/dL Med Orders - Current: Current Medications Discontinued Medications Acetaminophen (Tylenol) 650 mg PO Q4H PRN PRN Reason: Pain (Mild 1-3)/fever Hydrocodone Bitart/Acetaminophen ([place] 325-5 Mg) 1 tab PO Q4H PRN PRN Reason: Pain (moderate 4-6) Bisacodyl (Dulcolax) 5 mg PO DAILY PRN PRN Reason: Constipation Enoxaparin Sodium (Lovenox) 40 mg SUBCUT Q24H [facility] Last Admin: 10/07/19 16:30 Dose: Not Given Furosemide (Lasix) 40 mg IVPUSH NOW ONE Stop: 10/06/19 19:36 Last Admin: 10/06/19 20:56 Dose: 40 mg Furosemide (Lasix) 60 mg IVPUSH ONETIME ONE Stop: 10/07/19 17:01 Last Admin: 10/07/19 17:53 Dose: 60 mg Magnesium Sulfate 2 gm/ Premix 50 mls @ 25 mls/hr IV ONETIME ONE Stop: 10/07/19 13:29 Last Admin: 10/07/19 12:05 Dose: 25 mls/hr Insulin Aspart (Novolog) 0 unit SUBCUT TIDAC [facility]; Protocol Insulin Aspart (Novolog) 0 unit SUBCUT TIDAC [facility]; Protocol Last Admin: 10/08/19 07:24 Dose: Not Given Insulin Detemir (Levemir) 10 unit SUBCUT BEDTIME [facility] Last Admin: 10/07/19 20:01 Dose: 10 units Lisinopril (Prinivil) 10 mg PO DAILY [facility] Last Admin: 10/07/19 09:45 Dose: 10 mg Lisinopril (Prinivil) 20 mg PO DAILY [facility] Last Admin: 10/08/19 09:09 Dose: 20 mg Morphine Sulfate (Morphine) 2 mg IVPUSH Q2H PRN PRN Reason: Pain (severe 7-10) Stop: 10/07/19 17:32 Nicotine (Habitrol) 14 mg TRDERM DAILY [facility] Last Admin: 10/08/19 09:13 Dose: Not Given Ondansetron HCl (Zofran Odt) 4 mg PO Q4H PRN PRN Reason: nausea, able to take PO Ondansetron HCl (Zofran) 4 mg IVPUSH Q4H PRN PRN Reason: Nausea Polyethylene Glycol (Miralax) 17 gm PO DAILY PRN PRN Reason: Constipation Potassium Chloride (Potassium Chloride) 40 meq PO ONETIME ONE Stop: 10/07/19 10:31 Last Admin: 10/07/19 10:57 Dose: Not Given Potassium Chloride (Klor-Con M20) 20 meq PO Q4H [facility] Stop: 10/07/19 15:16 Last Admin: 10/07/19 12:17 Dose: Not Given Potassium Chloride (Klor-Con 10) 20 meq PO Q4H [facility] Stop: 10/07/19 15:31 Last Admin: 10/07/19 16:29 Dose: 20 meq - Free Text/Narrative Note: I have seen and evaluated the patient with the resident. I have discussed findings and treatment plan with the resident. I agree with the assessment and plan outlined in the following note.
--- NOTE | 2019-10-09 17:32 | ECHO ---
The echocardiogram report can be seen in this patient's EMR (Electronic Medical Record) in the REPORTS section. The echocardiogram report has also been scanned into PACS and can be seen there as well. [facility]
== END 2019-10-08 11:27 | disposition home or self-care (01) ==
LOC: MW.MS 15:58
PROVIDERS: ADMIT Internal Medicine; ATTEND Internal Medicine
DX: R60.1 Generalized edema (principal); R53.1 Weakness; E87.6 Hypokalemia; E11.9 Type 2 diabetes mellitus without complications; I10 Essential (primary) hypertension; F17.200 Nicotine dependence, unspecified, uncomplicated; Z88.2 Allergy status to sulfonamides; Z91.040 Latex allergy status; Z91.048 Other nonmedicinal substance allergy status; Z79.4 Long term (current) use of insulin; Z79.899 Other long term (current) drug therapy
CPT/HCPCS: 36415; 71046; 71046-26; 76705; 76705-26; 80048; 80053; 81001; 82570; 82962; 83735; 83880; 84133; 84156; 84300; 84540; 85025; 93306; 93970; 93970-26; 96365; 96366; 96372; 96375; 96376; 97110-GP; 97161-GP; A9270-GY; G0378; G0379; J1650; J1815-GY; J1940; J3475

== ENCOUNTER 2019-11-07 14:53 | Emergency (ER) | payer SELFPAY ==
[2019-11-07] MEDS ORDERED: Sodium Chloride 0.9% 10 ML Syringe FLUSH PRN (15:06)
[2019-11-07] MEDS ORDERED: Sodium Chloride 0.9% 10 ML SDV IV PRN (15:06)
[2019-11-07] MEDS ORDERED: Sodium Chloride 0.9% 2.5 ML Syringe FLUSH PRN (15:06)
--- NOTE | 2019-11-07 15:08 | EDM.PDOC ---
ED HPI GENERAL MEDICAL PROBLEM - General Chief Complaint: General Stated Complaint: PAIN Time Seen by Provider: 11/07/19 15:07 Source of Information: Reports: Patient History Limitations: Reports: No Limitations - History of Present Illness INITIAL COMMENTS - FREE TEXT/NARRATIVE: HISTORY AND PHYSICAL: History of present illness: Patient is a 54-year-old female who presents to the emergency room today with complaints of generalized numbness. Patient reports for the last 2 weeks she has had some temporal pain and numbness/tingling which she been evaluated by Dr. Hernandez. States she will have episodes which she describes as "waves" where she will have numbness from the nose down or waist down. States she isn't able to feel her body, but is able to ambulate and move without and deficits or weakness. She has not had any incontinence, falls, or injuries related to these symptoms. States symptoms will resolve in minutes to hours. States Dr Hernandez did some basic lab work which showed that she had "irritation in my veins". She was referred to the patron attendant who did intraocular steroid injections. She was started on an oral steroid and is supposed to be told on Saturday when her next follow up appointment is, for what sounds like a temporal arteries biopsy. Patient denies any fever, chills, headache, change in vision, syncope or near syncope. Denies any chest pain, back pain, shortness of breath or cough. Denies any abdominal pain, nausea, vomiting, diarrhea, constipation or dysuria. Has not noted any blood in urine or stool. Patient has been eating and drinking appropriately. PMH of type 2 DM. Review of systems: As per history of present illness and below otherwise all systems reviewed and negative. Past medical history: As per history of present illness and as reviewed below otherwise noncontributory. Surgical history: As per history of present illness and as reviewed below otherwise noncontributory. Social history: See social history for further information Family history: As per history of present illness and as reviewed below otherwise noncontributory. Physical exam: General: Well-developed and well-nourished 54-year-old female. Alert and oriented. Nontoxic appearing, anxious appearing and tearful. Vital signs are stable and have been reviewed by me. HEENT: Atraumatic, normocephalic, pupils equal and reactive bilaterally, negative for conjunctival pallor or scleral icterus, mucous membranes moist, TMs normal bilaterally, throat clear, neck supple, nontender, trachea midline. No drooling or trismus noted. No meningeal signs. No hot potato voice noted. Lungs: Clear to auscultation, breath sounds equal bilaterally, chest nontender. Heart: S1S2, regular rate and rhythm without overt murmur Abdomen: Soft, nondistended, nontender. Negative for masses or hepatosplenomegaly. Negative for costovertebral tenderness. Pelvis: Stable nontender. C-spine/Back: No pinpoint vertebral tenderness upon palpation. No crepitus, step -offs or obvious deformities. Patient is ambulatory into the emergency room without difficulty or deficit. Able to rock back on heels and walk on toes. Denies any urinary or fecal incontinence. Denies any numbness, tingling or saddle paresthesia. Skin: Intact, warm, dry. No lesions or rashes noted. Extremities: Atraumatic, moves all extremities per self without difficulty or deficits, negative for cords or calf pain. Neurovascular unremarkable. Neuro: Awake, alert, oriented. Cranial nerves II through XII unremarkable. Cerebellum unremarkable. Motor and sensory unremarkable throughout. Exam nonfocal. Notes: Labs are unremarkable. Patient's glucose is elevated; but she is type 2 DM using sliding scale insulin and has been using steriods over the past 2 days. She has no GI or symptoms. We discussed her diagnostics. She states she does have follow up scheduled for Saturday. We discussed signs and symptoms that would prompt her to return to the emergency room. Supportive care measures were reviewed and discussed. Voices understanding and is agreeable to plan of care. Denies any further questions or concerns at this time. Diagnostics: CBC, CMP, UA, Head CT, INR, TSH, UA Therapeutics: Normal Saline Prescription: None Impression: Paresthesia Hyperglycemia related to steroid use Plan: 1. Continue to monitor your blood sugars closely and take your insulin as directed. Blood sugars will continue to be elevated due to the oral steroids. 2. Please keep your appointment that you have arranged and have close follow-up with Dr. Hernandez for continued managment of today's symptoms. 3. Return to the ED as needed and as discussed. Definitive disposition and diagnosis as appropriate pending reevaluation and review of above. Duration: Week(s): - Related Data Allergies Allergy/AdvReac Type Severity Reaction Status Date / Time latex Allergy Mild Rash Verified 11/07/19 15:06 Sulfa (Sulfonamide Allergy Unknown Airway Verified 11/07/19 15:06 Antibiotics) Tightness sulfur dioxide Allergy Airway Verified 11/07/19 15:06 Tightness Home Meds: Home Meds Insulin Aspart [NovoLOG] 3 unit SUBCUT TIDAC #1 pen 09/27/19 [Rx] Insulin Detemir [Levemir] 10 unit SUBCUT BEDTIME #1 pen 09/27/19 [Rx] Enalapril [Vasotec] 40 mg PO DAILY 11/07/19 [History] Furosemide [Lasix] 40 mg PO BID 11/07/19 [History] Potassium Chloride 20 meq PO DAILY 11/07/19 [History] predniSONE [Prednisone] 20 mg PO ASDIRECTED 11/07/19 [History] Past Medical History - Past Health History Medical/Surgical History: Denies Medical/Surgical History HEENT History: Reports: Other (See Below) Other HEENT History: has top denture Cardiovascular History: Reports: Other (See Below) Other Cardiovascular History: murmur as an infant, hypotesnion Respiratory History: Reports: Other (See Below) Other Respiratory History: chronic daily smoker Gastrointestinal History: Reports: Helicobacter Pylori, Other (See Below) Other Gastrointestinal History: gastroparesis Genitourinary History: Reports: None 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: Musculoskeletal History: Reports: Back Pain, Chronic Neurological History: Reports: Migraines, Other (See Below) Other Neuro History: "Silent Migraines" Psychiatric History: Reports: Anxiety, Depression Endocrine/Metabolic History: Reports: Diabetes, Type II Other Endocrine/Metabolic History: Pt questions this Dx Hematologic History: Reports: Other (See Below) Other Hematologic History: States "bacterium in blood" Immunologic History: Reports: None Other Immunologic History: states was in the hospital in [place] last summer with blood infection "not sure what it was called" Oncologic (Cancer) History: Reports: Ovarian Dermatologic History: Reports: Eczema - Infectious Disease History Infectious Disease History: Reports: Chicken Pox, Measles, Mumps - Past Surgical History Head Surgeries/Procedures: Reports: None GI Surgical History: Reports: EGD Musculoskeletal Surgical History: Reports: Carpal Tunnel - History Comment History Comment: Son says she's been evaluated for these sxs in past but doesn' t recall where w/u was done (including CT of abd). No EGD ever done. The h pylori was dx'd by serologies. Social & Family History - Family History Family Medical History: Noncontributory Cardiac: Reports: Hypertension Other Cardiac Family History: Mother, Aunt Respiratory: Reports: COPD Other Respiratory Family Hisory: Uncle GI: Reports: None Neurological: Reports: Other (See Below) Other Neurological Family History: Stroke-Grandmother Endocrine/Metabolic: Reports: Diabetes, type II - Caffeine Use Caffeine Use: Reports: Soda - Living Situation & Occupation Living situation: Reports: Single Occupation: Unemployed ED ROS GENERAL - Review of Systems Review Of Systems: Comprehensive ROS is negative, except as noted in HPI. ED EXAM, GENERAL - Physical Exam Exam: See Below (See dictation) Course - Vital Signs Last Recorded V/S: Last Vital Signs Temp 97.1 F 11/07/19 15:03 Pulse 99 11/07/19 17:20 Resp 18 11/07/19 17:20 BP 136/97 H 11/07/19 17:20 Pulse Ox 98 11/07/19 17:20 - Orders/Labs/Meds Orders: Active Orders 24 hr Category Date Time Status EKG Documentation Completion [RC] STAT Care 11/07/19 15:06 Active Oxygen Therapy [RC] ASDIRECTED Care 11/07/19 15:06 Active Peripheral IV Insertion Adult [OM.PC] Stat Oth 11/07/19 15:06 Ordered Labs: Laboratory Tests 11/07/19 11/07/19 11/07/19 Range/Units 15:10 15:10 15:10 WBC 7.63 (4.0-11.0) K/uL RBC 4.10 L (4.30-5.90) M/uL Hgb 12.3 (12.0-16.0) g/dL Hct 36.3 (36.0-46.0) % MCV 88.5 (80.0-98.0) fL MCH 30.0 (27.0-32.0) pg MCHC 33.9 (31.0-37.0) g/dL RDW Std Deviation 43.0 (28.0-62.0) fl RDW Coeff of [place] 13 (11.0-15.0) % Plt Count 314 (150-400) K/uL MPV 12.30 H (7.40-12.00) fL Neut % (Auto) 89.2 H (48.0-80.0) % Lymph % (Auto) 9.3 L (16.0-40.0) % [place] % (Auto) 1.0 (0.0-15.0) % Eos % (Auto) 0.1 (0.0-7.0) % Baso % (Auto) 0.4 (0.0-1.5) % Neut # (Auto) 6.8 H (1.4-5.7) K/uL Lymph # (Auto) 0.7 (0.6-2.4) K/uL [place] # (Auto) 0.1 (0.0-0.8) K/uL Eos # (Auto) 0.0 (0.0-0.7) K/uL Baso # (Auto) 0.0 (0.0-0.1) K/uL Nucleated RBC % 0.0 /100WBC Nucleated RBCs # 0 K/uL INR 0.94 Sodium 133 L (136-145) mmol/L Potassium 5.0 (3.5-5.1) mmol/L Chloride 98 (98-107) mmol/L Carbon Dioxide 27.6 (21.0-32.0) mmol/L BUN 22 H (7.0-18.0) mg/dL Creatinine 1.4 H (0.6-1.0) mg/dL Est Cr Clr Drug Dosing 43.76 mL/min Estimated GFR (MDRD) 39.5 ml/min Glucose 474 H (74-106) mg/dL Calcium 8.2 L (8.5-10.1) mg/dL Total Bilirubin 0.2 (0.2-1.0) mg/dL AST 29 (15-37) IU/L ALT 21 (14-63) IU/L Alkaline Phosphatase 176 H (46-116) U/L Troponin I < 0.050 (0.000-0.056) ng/mL Total Protein 6.3 L (6.4-8.2) g/dL Albumin 2.0 L (3.4-5.0) g/dL Globulin 4.3 H (2.6-4.0) g/dL Albumin/Globulin Ratio 0.5 L (0.9-1.6) TSH 3rd Generation 1.87 (0.36-3.74) uIU/mL Urine Color Urine Appearance Urine pH (5.0-8.0) Ur Specific [place] (1.001-1.035) Urine Protein (NEGATIVE) mg/dL Urine Glucose (UA) (NEGATIVE) mg/dL Urine Ketones (NEGATIVE) mg/dL Urine Occult Blood (NEGATIVE) Urine Nitrite (NEGATIVE) Urine Bilirubin (NEGATIVE) Urine Urobilinogen (<2.0) EU/dL Ur Leukocyte Esterase (NEGATIVE) Urine RBC (0-2/HPF) Urine WBC (0-5/HPF) Ur Epithelial Cells (NONE-FEW) Urine Bacteria (NEGATIVE) 11/07/19 Range/Units 16:05 WBC (4.0-11.0) K/uL RBC (4.30-5.90) M/uL Hgb (12.0-16.0) g/dL Hct (36.0-46.0) % MCV (80.0-98.0) fL MCH (27.0-32.0) pg MCHC (31.0-37.0) g/dL RDW Std Deviation (28.0-62.0) fl RDW Coeff of [place] (11.0-15.0) % Plt Count (150-400) K/uL MPV (7.40-12.00) fL Neut % (Auto) (48.0-80.0) % Lymph % (Auto) (16.0-40.0) % [place] % (Auto) (0.0-15.0) % Eos % (Auto) (0.0-7.0) % Baso % (Auto) (0.0-1.5) % Neut # (Auto) (1.4-5.7) K/uL Lymph # (Auto) (0.6-2.4) K/uL [place] # (Auto) (0.0-0.8) K/uL Eos # (Auto) (0.0-0.7) K/uL Baso # (Auto) (0.0-0.1) K/uL Nucleated RBC % /100WBC Nucleated RBCs # K/uL INR Sodium (136-145) mmol/L Potassium (3.5-5.1) mmol/L Chloride (98-107) mmol/L Carbon Dioxide (21.0-32.0) mmol/L BUN (7.0-18.0) mg/dL Creatinine (0.6-1.0) mg/dL Est Cr Clr Drug Dosing mL/min Estimated GFR (MDRD) ml/min Glucose (74-106) mg/dL Calcium (8.5-10.1) mg/dL Total Bilirubin (0.2-1.0) mg/dL AST (15-37) IU/L ALT (14-63) IU/L Alkaline Phosphatase (46-116) U/L Troponin I (0.000-0.056) ng/mL Total Protein (6.4-8.2) g/dL Albumin (3.4-5.0) g/dL Globulin (2.6-4.0) g/dL Albumin/Globulin Ratio (0.9-1.6) TSH 3rd Generation (0.36-3.74) uIU/mL Urine Color YELLOW Urine Appearance HAZY Urine pH 6.0 (5.0-8.0) Ur Specific [place] 1.020 (1.001-1.035) Urine Protein 100 H (NEGATIVE) mg/dL Urine Glucose (UA) >=1000 (NEGATIVE) mg/dL Urine Ketones NEGATIVE (NEGATIVE) mg/dL Urine Occult Blood SMALL H (NEGATIVE) Urine Nitrite NEGATIVE (NEGATIVE) Urine Bilirubin NEGATIVE (NEGATIVE) Urine Urobilinogen 0.2 (<2.0) EU/dL Ur Leukocyte Esterase NEGATIVE (NEGATIVE) Urine RBC 1-3 (0-2/HPF) Urine WBC 0-2 (0-5/HPF) Ur Epithelial Cells RARE (NONE-FEW) Urine Bacteria FEW (NEGATIVE) Meds: Medications Discontinued Medications Generic Name Dose Route Start Last Admin Trade Name Freq PRN Reason Stop Dose Admin Sodium Chloride 1,000 mls @ 999 mls/hr 11/07/19 16:01 11/07/19 16:24 Normal Saline IV 11/07/19 17:01 999 mls/hr STAT ONE Administration Sodium Chloride 10 ml 11/07/19 15:06 Saline Flush FLUSH ASDIRECTED PRN Keep Vein Open Sodium Chloride 2.5 ml 11/07/19 15:06 Saline Flush FLUSH ASDIRECTED PRN Keep Vein Open Sodium Chloride 10 ml 11/07/19 15:06 Normal Saline IV ASDIRECTED PRN IV Use Departure - Departure Time of Disposition: 16:32 Disposition: Home, Self-Care 01 Clinical Impression: Hyperglycemia, Paresthesia - Discharge Information Instructions: Hyperglycemia, [id number], Paresthesia, [id number] Referrals: PCP,None [Primary Care Provider] - Forms: ED Department Discharge Additional Instructions: The following information is given to patients seen in the emergency department who are being discharged to home. This information is to outline your options for follow-up care. We provide all patients seen in our emergency department with a follow-up referral. The need for follow-up, as well as the timing and circumstances, are variable depending upon the specifics of your emergency department visit. If you don't have a primary care physician on staff, we will provide you with a referral. We always advise you to contact your personal physician following an emergency department visit to inform them of the circumstance of the visit and for follow-up with them and/or the need for any referrals to a consulting specialist. The emergency department will also refer you to a specialist when appropriate. This referral assures that you have the opportunity for follow-up care with a specialist. All of these measure are taken in an effort to provide you with optimal care, which includes your follow-up. Under all circumstances we always encourage you to contact your private physician who remains a resource for coordinating your care. When calling for follow-up care, please make the office aware that this follow-up is from your recent emergency room visit. If for any reason you are refused follow-up, please contact the [facility] Emergency Department at and asked to speak to the emergency department charge nurse. [facility] [address] [place] [id number] [address] [address] 1. Continue to monitor your blood sugars closely and take your insulin as directed. Blood sugars will continue to be elevated due to the oral steroids. 2. Please keep your appointment that you have arranged and have close follow-up with Dr. Hernandez for continued management of today's symptoms. 3. Return to the ED as needed and as discussed. - My Orders Last 24 Hours: My Active Orders 11/07/19 15:06 EKG Documentation Completion [RC] STAT Oxygen Therapy [RC] ASDIRECTED Peripheral IV Insertion Adult [OM.PC] Stat - Assessment/Plan Last 24 Hours: My Active Orders 11/07/19 15:06 EKG Documentation Completion [RC] STAT Oxygen Therapy [RC] ASDIRECTED Peripheral IV Insertion Adult [OM.PC] Stat
[2019-11-07 15:50] LABS: BLOOD UREA NITROGEN,BUN 22 mg/dL (7.0-18.0); CARBON DIOXIDE,CO2 27.6 mmol/L (21.0-32.0); CHLORIDE,CL 98 mmol/L (98-107); GLUCOSE RANDOM 474 mg/dL (74-106); SODIUM,NA 133 mmol/L (136-145)
--- NOTE | 2019-11-07 15:58 | CT ---
INDICATION: Numbness all over for 2 days, worse this am, no perv history of transient ischemic attack TECHNIQUE: CT Head without i.v. contrast. COMPARISON: None FINDINGS: CSF space: The ventricles are normal for age. Brain: No evidence of mass, acute infarction or hemorrhage is seen. No mass-effect or midline shift is seen. The brain parenchyma is otherwise normal in appearance with preservation of the ball-white matter junction. Calvarium: The visualized paranasal sinuses are well aerated. The mastoid air cells are clear. The visualized orbits are grossly unremarkable. The calvarium is unremarkable in appearance with no fractures identified. IMPRESSION: 1. No evidence of acute infarction, intracranial hemorrhage, or mass-effect seen. Please note that all CT scans at this facility use dose modulation, iterative reconstruction, and/or weight-based dosing when appropriate to reduce radiation dose to as low as reasonably achievable. Dictated by: Lv Warren MD @ 11/07/2019 15:58:06 (Electronically Signed)
[2019-11-07] MEDS ORDERED: Sodium Chloride 0.9% 1,000 ML IV ONE (16:01)
[2019-11-07 17:31] VITALS: BP 136/97; PULSE 99
== END 2019-11-07 17:28 | disposition home or self-care (01) ==
LOC: MW.ED 14:53
DX: R20.2 Paresthesia of skin (principal); E11.65 Type 2 diabetes mellitus with hyperglycemia; E11.43 Type 2 diabetes mellitus with diabetic autonomic (poly)neuropathy; K31.84 Gastroparesis; F17.200 Nicotine dependence, unspecified, uncomplicated; Z79.4 Long term (current) use of insulin; Z88.2 Allergy status to sulfonamides; Z91.040 Latex allergy status; Z91.048 Other nonmedicinal substance allergy status
CPT/HCPCS: 70450; 80053; 81001; 84443; 84484; 85025; 85610; 93005; 96360; 99284; J7030

== ENCOUNTER 2020-01-20 12:30 | Emergency (ER) | payer MEDICAID ==
[2020-01-20] MEDS ORDERED: Aspirin 81 MG Tab.Chew PO ONE (12:56)
--- NOTE | 2020-01-20 13:14 | EDM.PDOC ---
ED HPI GENERAL MEDICAL PROBLEM - General Chief Complaint: Chest Pain Stated Complaint: NUMBNESS, FAINTED, CHEST PAIN Time Seen by Provider: 01/20/20 13:10 Source of Information: Reports: Patient History Limitations: Reports: No Limitations - History of Present Illness INITIAL COMMENTS - FREE TEXT/NARRATIVE: Patient is a 55-year-old female with a past medical history of hyper tension poking presenting with a chief complaint of chest discomfort and syncopal episode. Patient states the episode happened just prior to arrival she said she was not exerting herself and felt chest pressure. The chest pressure did not radiate and persisted. Patient had an associated syncopal event with her son present. Lasted for a minute or 2 patient was lowered to the chair. Patient states she did not have any full loss of consciousness or urinary incontinence. Patient states the chest pressure continues to feels a little bit of shortness of breath. Patient denies any prior history of DVT or PE. Patient does have prior history of ovarian cancer. Patient denies any lower extremity swelling. Pmhx: Hypertension, hyperlipidemia, ovarian cancer, chronic back pain Pshx: None Family Hx: noncontributory Smoking history? Yes Etoh use? none Drug use? none In addition to that documented in the HPI above, the additional ROS was obtained : Constitutional: Denies fevers or chills Eyes: Denies vision changes ENMT: Denies sore throat CV: Per HPI Resp: Per HPI GI: Denies vomiting or diarrhea : Denies painful urination MSK: Denies recent trauma Skin: Denies new rashes Neuro: Denies new numbness or tingling or weakness Endocrine: Denies unexpected weight loss Heme: Denies bleeding disorders I have reviewed the triage vital signs Const: Well nourished, well developed, appears stated age Eyes: PERRL, no conjunctival injection HENT: NCAT, Neck supple without meningismus CV: RRR, Warm, well-perfused extremities RESP: CTAB, Unlabored respiratory effort GI: soft, non-tender, non-distended, no masses MSK: No gross deformities appreciated Skin: Warm, dry. No rashes Neuro: Alert, major case detective II-XII grossly intact. Sensation and motor function of extremities grossly intact. Psych: Appropriate mood and affect Assessment and plan: Patient is a 55-year-old female with sudden onset of chest pain with syncope. Patient's initial EKG demonstrates normal sinus rhythm without ischemic changes. Patient's initial troponin is negative. Other differential diagnoses include pulmonary embolism and aortic dissection. After talking to her and reexamining her I believe that her concern is for a PE and that the patient requires serial troponin testing and further cardiac work-up. However, the patient does not wish to stay and have further work-up and would like to leave AGAINST MEDICAL ADVICE. All the risks and benefits were explained to the patient. Patient states she will come back later today to further work-up done. All questions addressed and answered. Patient agrees with plan. Chest Pain Score (Numeric/FACES): 2 - Related Data Allergies Allergy/AdvReac Type Severity Reaction Status Date / Time latex Allergy Mild Rash Verified 01/20/20 12:35 Sulfa (Sulfonamide Allergy Unknown Airway Verified 01/20/20 12:35 Antibiotics) Tightness sulfur dioxide Allergy Airway Verified 01/20/20 12:35 Tightness Home Meds: Home Meds Insulin Aspart [NovoLOG] 3 unit SUBCUT TIDAC #1 pen 09/27/19 [Rx] Insulin Detemir [Levemir] 10 unit SUBCUT BEDTIME #1 pen 09/27/19 [Rx] Enalapril [Vasotec] 40 mg PO DAILY 11/07/19 [History] Furosemide [Lasix] 40 mg PO BID 11/07/19 [History] Potassium Chloride 20 meq PO DAILY 11/07/19 [History] Aspirin 81 mg PO DAILY 01/20/20 [History] Gabapentin [Neurontin] 1 tab PO DAILY 01/20/20 [History] Omeprazole Magnesium [Prilosec] 1 tab PO DAILY 01/20/20 [History] Past Medical History - Past Health History Medical/Surgical History: Denies Medical/Surgical History HEENT History: Reports: Other (See Below) Other HEENT History: has top denture Cardiovascular History: Reports: Hypertension, Other (See Below) Other Cardiovascular History: murmur as an infant, hypotesnion, "issues with heart racing" Respiratory History: Reports: Other (See Below) Other Respiratory History: Carbon Monoxide posioning Gastrointestinal History: Reports: Helicobacter Pylori, Other (See Below) Other Gastrointestinal History: gastroparesis Genitourinary History: Reports: Chronic Renal Insuffiency [employer] History: Reports: Musculoskeletal History: Reports: Back Pain, Chronic Neurological History: Reports: Migraines, Other (See Below) Other Neuro History: "Silent Migraines" Psychiatric History: Reports: Anxiety, Depression Endocrine/Metabolic History: Reports: Diabetes, Type II Other Endocrine/Metabolic History: Pt questions this Dx Hematologic History: Reports: Other (See Below) Other Hematologic History: States "bacterium in blood" Immunologic History: Reports: None Other Immunologic History: states was in the hospital in [place] last summer with blood infection "not sure what it was called" Oncologic (Cancer) History: Reports: Ovarian Dermatologic History: Reports: Eczema - Infectious Disease History Infectious Disease History: Reports: Chicken Pox, MRSA, Mumps - Past Surgical History Head Surgeries/Procedures: Reports: None HEENT Surgical History: Reports: None Respiratory Surgical History: Reports: None GI Surgical History: Reports: EGD Female Surgical History: Reports: None Endocrine Surgical History: Reports: None Neurological Surgical History: Reports: None Musculoskeletal Surgical History: Reports: Carpal Tunnel Oncologic Surgical History: Reports: None Dermatological Surgical History: Reports: None - History Comment History Comment: Son says she's been evaluated for these sxs in past but doesn' t recall where w/u was done (including CT of abd). No EGD ever done. The h pylori was dx'd by serologies. Social & Family History - Family History Family Medical History: Noncontributory Cardiac: Reports: Hypertension Other Cardiac Family History: Mother, Aunt Respiratory: Reports: COPD Other Respiratory Family Hisory: Uncle GI: Reports: None Neurological: Reports: Other (See Below) Other Neurological Family History: Stroke-Grandmother Endocrine/Metabolic: Reports: Diabetes, type II - Tobacco Use Smoking Status *Q: Current Every Day Smoker Years of Tobacco use: 40 Packs/Tins Daily: 1 - Caffeine Use Caffeine Use: Reports: Tea - Recreational Drug Use Recreational Drug Use: No - Living Situation & Occupation Living situation: Reports: Single Occupation: Unemployed ED ROS GENERAL - Review of Systems Review Of Systems: See Below ED EXAM, GENERAL - Physical Exam Exam: See Below Course - Vital Signs Last Recorded V/S: Last Vital Signs Temp 35.9 C L 01/20/20 12:32 Pulse 95 01/20/20 13:23 Resp 18 01/20/20 12:32 BP 127/80 01/20/20 13:23 Pulse Ox 96 01/20/20 12:32 - Orders/Labs/Meds Orders: Active Orders 24 hr Category Date Time Status EKG 12 Lead [EKG Documentation Completion] [RC] ROUTINE Care 01/20/20 13:51 Active Ang Chest [CT] Stat Exams 01/20/20 13:49 Ordered Sodium Chloride 0.9% [Normal Saline] 1,000 ml Med 01/20/20 13:49 Active IV .Bolus Medication Orders Sodium Chloride (Normal Saline) 1,000 mls @ 999 mls/hr IV .Bolus ONE Stop: 01/20/20 14:49 Labs: Laboratory Tests 01/20/20 01/20/20 Range/Units 13:08 13:08 WBC 9.85 (4.0-11.0) K/uL RBC 3.64 L (4.30-5.90) M/uL Hgb 11.0 L (12.0-16.0) g/dL Hct 32.0 L (36.0-46.0) % MCV 87.9 (80.0-98.0) fL MCH 30.2 (27.0-32.0) pg MCHC 34.4 (31.0-37.0) g/dL RDW Std Deviation 42.2 (28.0-62.0) fl RDW Coeff of [place] 13 (11.0-15.0) % Plt Count 276 (150-400) K/uL MPV 12.20 H (7.40-12.00) fL Neut % (Auto) 67.2 (48.0-80.0) % Lymph % (Auto) 22.5 (16.0-40.0) % [place] % (Auto) 5.5 (0.0-15.0) % Eos % (Auto) 4.5 (0.0-7.0) % Baso % (Auto) 0.3 (0.0-1.5) % Neut # (Auto) 6.6 H (1.4-5.7) K/uL Lymph # (Auto) 2.2 (0.6-2.4) K/uL [place] # (Auto) 0.5 (0.0-0.8) K/uL Eos # (Auto) 0.4 (0.0-0.7) K/uL Baso # (Auto) 0.0 (0.0-0.1) K/uL Nucleated RBC % 0.0 /100WBC Nucleated RBCs # 0 K/uL Sodium 138 (136-145) mmol/L Potassium 4.5 (3.5-5.1) mmol/L Chloride 102 (98-107) mmol/L Carbon Dioxide 27.2 (21.0-32.0) mmol/L BUN 27 H (7.0-18.0) mg/dL Creatinine 1.2 H (0.6-1.0) mg/dL Est Cr Clr Drug Dosing TNP Estimated GFR (MDRD) 47.0 ml/min Glucose 334 H (74-106) mg/dL Calcium 8.8 (8.5-10.1) mg/dL Total Bilirubin 0.2 (0.2-1.0) mg/dL AST 21 (15-37) IU/L ALT 24 (14-63) IU/L Alkaline Phosphatase 99 (46-116) U/L Troponin I < 0.050 (0.000-0.056) ng/mL Total Protein 6.3 L (6.4-8.2) g/dL Albumin 2.3 L (3.4-5.0) g/dL Globulin 4.0 (2.6-4.0) g/dL Albumin/Globulin Ratio 0.6 L (0.9-1.6) Meds: Medications Generic Name Dose Route Start Last Admin Trade Name Freq PRN Reason Stop Dose Admin Sodium Chloride 1,000 mls @ 999 mls/hr 01/20/20 13:49 Normal Saline IV 01/20/20 14:49 .Bolus ONE Discontinued Medications Generic Name Dose Route Start Last Admin Trade Name Freq PRN Reason Stop Dose Admin Aspirin 324 mg 01/20/20 12:56 01/20/20 13:26 Aspirin PO 01/20/20 12:57 243 mg ONETIME ONE Administration Departure - Departure Time of Disposition: 14:15 Disposition: Against Medical Advice 07 Clinical Impression: Chest pain Referrals: Rodo Staley MD [Primary Care Provider] - Forms: ED Department Discharge Sepsis Event Note - Evaluation Sepsis Screening Result: No Definite Risk - Focused Exam Vital Signs: Vital Signs Temp Pulse Resp BP Pulse Ox 01/20/20 13:23 95 127/80 01/20/20 12:32 35.9 C L 99 18 92/65 96 Date Exam was Performed: 01/20/20 Time Exam was Performed: 14:15 - My Orders Last 24 Hours: My Active Orders 01/20/20 13:49 Ang Chest [CT] Stat Sodium Chloride 0.9% [Normal Saline] 1,000 ml IV .Bolus 01/20/20 13:51 EKG 12 Lead [EKG Documentation Completion] [RC] ROUTINE - Assessment/Plan Last 24 Hours: My Active Orders 01/20/20 13:49 Ang Chest [CT] Stat Sodium Chloride 0.9% [Normal Saline] 1,000 ml IV .Bolus 01/20/20 13:51 EKG 12 Lead [EKG Documentation Completion] [RC] ROUTINE
[2020-01-20 13:48] LABS: BLOOD UREA NITROGEN,BUN 27 mg/dL (7.0-18.0); CARBON DIOXIDE,CO2 27.2 mmol/L (21.0-32.0); CHLORIDE,CL 102 mmol/L (98-107); GLUCOSE RANDOM 334 mg/dL (74-106); POTASSIUM,K 4.5 mmol/L (3.5-5.1); SODIUM,NA 138 mmol/L (136-145)
[2020-01-20] MEDS ORDERED: Sodium Chloride 0.9% 1,000 ML IV ONE (13:49)
--- NOTE | 2020-01-20 13:52 | CR ---
Chest: Portable view of the chest was obtained. Comparison: Prior chest x-ray of 10/06/19. Heart size and mediastinum are within normal limits. Lungs are clear with no acute parenchymal change. Bony structures are grossly intact. Impression: 1. Nothing acute is appreciated on frontal chest x-ray. Diagnostic code #1 Study was dictated in [place] Standard Time
[2020-01-20 19:35] VITALS: BP 119/91; PULSE 97
== END 2020-01-20 14:32 | disposition left against medical advice (07) ==
LOC: MW.ED 12:30
DX: R07.89 Other chest pain (principal); I12.9 Hypertensive chronic kidney disease with stage 1 through stage 4 chronic kidney disease, or unspecified chronic kidney disease; E11.22 Type 2 diabetes mellitus with diabetic chronic kidney disease; N18.9 Chronic kidney disease, unspecified; F41.9 Anxiety disorder, unspecified; F32.9 Major depressive disorder, single episode, unspecified; F17.210 Nicotine dependence, cigarettes, uncomplicated; Z88.2 Allergy status to sulfonamides; Z91.040 Latex allergy status; Z79.899 Other long term (current) drug therapy; Z79.4 Long term (current) use of insulin; Z79.82 Long term (current) use of aspirin
CPT/HCPCS: 36415; 71045; 80053; 84484; 85025; 93005; 99285; A9270; 99284

== ENCOUNTER 2020-08-14 20:11 | Emergency (ER) | payer MEDICAID ==
[2020-08-14 20:14] VITALS: BP 138/78; PULSE 81
--- NOTE | 2020-08-14 20:21 | EDM.PDOC ---
ED HPI GENERAL MEDICAL PROBLEM - General Chief Complaint: Lower Extremity Injury/Pain Stated Complaint: BROKEN ANKLE Time Seen by Provider: 08/14/20 20:12 Source of Information: Reports: Patient History Limitations: Reports: No Limitations - History of Present Illness INITIAL COMMENTS - FREE TEXT/NARRATIVE: HISTORY AND PHYSICAL: History of present illness: Patient is a 55-year-old female who presents to the emergency room with complaints of right ankle and foot pain after falling. She states her slipper caught on a crack in the cement and she fell causing her ankle and foot to roll. Her son helped her stand up and when she went to bear weight she heard a "crunch". She denies hitting her head or having any loss of consciousness. She denies any other extremity involvement. She offers no systemic complaints. Review of systems: As per history of present illness and below otherwise all systems reviewed and negative. Past medical history: As per history of present illness and as reviewed below otherwise noncontributory. Surgical history: As per history of present illness and as reviewed below otherwise noncontributory. Social history: See social history for further information Family history: As per history of present illness and as reviewed below otherwise noncontributory. Physical exam: General: Chronically ill-appearing 55-year-old female. Alert and orientated x 3. Nontoxic in appearance and in no acute distress. Vital signs are stable and have been reviewed by me. Nursing notes were reviewed. HEENT: Atraumatic, normocephalic, pupils equal and reactive bilaterally, negative for conjunctival pallor or scleral icterus, mucous membranes moist, TMs normal bilaterally, throat clear, neck supple, nontender, trachea midline. No drooling or trismus noted. No meningeal signs. No hot potato voice noted. Lungs: Clear to auscultation, breath sounds equal bilaterally, chest nontender. Normal work of breathing, no accessory muscles used. Heart: S1S2, regular rate and rhythm without overt murmur Abdomen: Soft, nondistended, nontender. Skin: Bruising noted to the right lateral ankle. Otherwise remaining skin is intact, warm, dry. No lesions or rashes noted. Hematologic: No petechiae or purpra. Mucosa appropriate color and normal nail bed color and refill. Extremities: Pain with palpation of the tib-fib, rotation of the foot medially. Moves all extremities per self without difficulty or deficits, negative for cords or calf pain. Neurovascular unremarkable. Neuro: Awake, alert, oriented. Cranial nerves II through XII unremarkable. Cer ebellum unremarkable. Motor and sensory unremarkable throughout. Exam nonfocal. Psychiatric: Mood and affect are appropriate. Normal thought process. Answering questions appropriately. Notes: X-ray shows acute comminuted fractures involving the right tibia and fibula. Fracture fragments are displaced. Right fibular fracture appears to involve the mid diaphysis as well as the distal diaphysis apparent subacute fracture deformity of right proximal fibular neck. Nondisplaced fracture of medial malleolus. A fiberglass posterior splint was applied for support of fractures. Continues to have strong pedal pulses. I did speak with Dr. Judd the orthopedic provider at [facility] who was able to view her images and would like her transferred to their facility. I did speak with Dr. Dong, ER provider [facility], to inform him of the patient's pending arrival. He is aware of this patient. I did speak with the patient about the transfer and she is agreeable. Patient remains vitally stable and pulses remain strong. Patient will be transferred to [facility] via ground EMS. She states she is comfortable and declines wanting any medication for pain at this time. Diagnostics: X-ray right ankle and foot Therapeutics: Fiberglass posterior splint Impression: Tib-fib fracture, right Plan: Transferred to [facility] in [place] Definitive disposition and diagnosis as appropriate pending reevaluation and review of above. right heal Pain Score (Numeric/FACES): 1 - Related Data Allergies Allergy/AdvReac Type Severity Reaction Status Date / Time latex Allergy Mild Rash Verified 08/14/20 20:14 Sulfa (Sulfonamide Allergy Unknown Airway Verified 08/14/20 20:14 Antibiotics) Tightness sulfur dioxide Allergy Airway Verified 08/14/20 20:14 Tightness Home Meds: Home Meds Enalapril [Vasotec] 40 mg PO DAILY 11/07/19 [History] Furosemide [Lasix] 40 mg PO DAILY 11/07/19 [History] Potassium Chloride 20 meq PO DAILY 11/07/19 [History] Past Medical History - Past Health History Medical/Surgical History: Denies Medical/Surgical History HEENT History: Reports: Other (See Below) Other HEENT History: has top denture Cardiovascular History: Reports: Hypertension, Other (See Below) Other Cardiovascular History: murmur as an infant, hypotesnion, "issues with heart racing" Respiratory History: Reports: Other (See Below) Other Respiratory History: Carbon Monoxide posioning Gastrointestinal History: Reports: Helicobacter Pylori, Other (See Below) Other Gastrointestinal History: gastroparesis Genitourinary History: Reports: Chronic Renal Insuffiency [employer] History: Reports: Musculoskeletal History: Reports: Back Pain, Chronic Neurological History: Reports: Migraines, Other (See Below) Other Neuro History: "Silent Migraines" Psychiatric History: Reports: Anxiety, Depression Endocrine/Metabolic History: Reports: Diabetes, Type II Other Endocrine/Metabolic History: Pt questions this Dx Hematologic History: Reports: Other (See Below) Other Hematologic History: States "bacterium in blood" Immunologic History: Reports: None Other Immunologic History: states was in the hospital in [place] last summer with blood infection "not sure what it was called" Oncologic (Cancer) History: Reports: Ovarian Dermatologic History: Reports: Eczema - Infectious Disease History Infectious Disease History: Reports: Chicken Pox, MRSA - Past Surgical History Head Surgeries/Procedures: Reports: None HEENT Surgical History: Reports: None Respiratory Surgical History: Reports: None GI Surgical History: Reports: EGD Female Surgical History: Reports: None Endocrine Surgical History: Reports: None Neurological Surgical History: Reports: None Musculoskeletal Surgical History: Reports: Carpal Tunnel Oncologic Surgical History: Reports: None Dermatological Surgical History: Reports: None - History Comment History Comment: Son says she's been evaluated for these sxs in past but doesn't recall where w/u was done (including CT of abd). No EGD ever done. The h pylori was dx'd by serologies. Social & Family History - Family History Family Medical History: Noncontributory Cardiac: Reports: Hypertension Other Cardiac Family History: Mother, Aunt Respiratory: Reports: COPD Other Respiratory Family Hisory: Uncle GI: Reports: None Neurological: Reports: Other (See Below) Other Neurological Family History: Stroke-Grandmother Endocrine/Metabolic: Reports: Diabetes, type II - Tobacco Use Smoking Status *Q: Current Every Day Smoker Years of Tobacco use: 35 Packs/Tins Daily: 1 - Caffeine Use Caffeine Use: Reports: Tea - Recreational Drug Use Recreational Drug Use: No - Living Situation & Occupation Living situation: Reports: Single Occupation: Unemployed Review of Systems - Review of Systems Review Of Systems: Comprehensive ROS is negative, except as noted in HPI. ED EXAM, GENERAL - Physical Exam Exam: See Below (See dictation) ED TRAUMA EXTREMITY PROCEDURES - Splinting Right lower extremity Splint Site: Right lower extremity Pre-Procedure NV Status: Normal Post-Procedure NV Status: Normal Splint Material: Fiberglass Splint Design: Posterior Applied & Form Fitted By: Provider, Nurse Provider Post-Splint Application NV Check: NV Status Normal, Good Position Complications: No Course - Vital Signs Last Recorded V/S: Last Vital Signs Temp 96.9 F 08/14/20 20:12 Pulse 81 08/14/20 20:12 Resp 16 08/14/20 20:12 BP 138/78 08/14/20 20:12 Pulse Ox 95 08/14/20 20:12 Departure - Departure Time of Disposition: 10:02 Disposition: DC/[facility]fer to [facility] 02 Clinical Impression: Tibia/fibula fracture Qualifiers: Encounter type: initial encounter Fracture type: closed Laterality: right Qualified Code(s): S82.201A - Unspecified fracture of shaft of right tibia, initial encounter for closed fracture; S82.401A - Unspecified fracture of shaft of right fibula, initial encounter for closed fracture - Discharge Information Referrals: PCP,None [Primary Care Provider] - Forms: ED Department Discharge Sepsis Event Note (ED) - Evaluation Sepsis Screening Result: No Definite Risk
--- NOTE | 2020-08-15 13:32 | CR ---
EXAM DATE: 08/14/20 PATIENT'S AGE: 55 Patient: MITCHELL MCCRAY Facility: [facility] Site . Site : [id number] Study: XRay-Extremity Right TIB/FIB-08/14/2020 8:58:01 PM Ordering Physician: ESTHER. ED PROVIDER Final Report: INDICATION: Status post fall. TECHNIQUE: Tibia-fibula radiograph 2 views COMPARISON: None FINDINGS: Acute, comminuted fractures involving right tibia and fibula diaphyses. Fracture fragments are displaced. Right fibular fracture appears to involve the mid diaphysis as well as the distal diaphysis. Apparent subacute fracture deformity of right proximal fibular neck with periosteal reaction. Nondisplaced fracture of the medial malleolus also suspected. Alignment at the right knee and right ankle grossly intact. Ankle mortise congruent. IMPRESSION: 1. Highly comminuted, displaced fractures involving the mid diaphysis of right tibia and fibula. 2. Displaced, comminuted fracture involving the distal diaphysis of right fibula. 3. Nondisplaced fracture of medial malleolus. 4. Subacute fracture involving proximal right fibular neck. Dictated by Misbah Grey MD @ 08/14/2020 10:54:46 PM Dictated by: Misbah Grey MD @ 08/14/2020 22:54:49 Signed by: Misbah Grey MD @08/14/2020 10:54:49 PM (Electronic Signature) Report Signed by Proxy. COLETTE
== END 2020-08-15 01:40 ==
LOC: MW.ED 20:11
DX: S82.831A Other fracture of upper and lower end of right fibula, initial encounter for closed fracture (principal); S82.54XA Nondisplaced fracture of medial malleolus of right tibia, initial encounter for closed fracture; I10 Essential (primary) hypertension; E11.9 Type 2 diabetes mellitus without complications; F17.210 Nicotine dependence, cigarettes, uncomplicated; Z91.040 Latex allergy status; Z88.2 Allergy status to sulfonamides; Z79.899 Other long term (current) drug therapy; W18.30XA Fall on same level, unspecified, initial encounter
CPT/HCPCS: 29515; 73590-26-RT; 73590-RT; 99283; 99284-25

== ENCOUNTER 2020-12-21 10:26 | Emergency (ER) | payer MEDICAID ==
[2020-12-21] MEDS ORDERED: Sodium Chloride 0.9% 10 ML Syringe FLUSH PRN (10:59)
[2020-12-21] MEDS ORDERED: Sodium Chloride 0.9% 2.5 ML Syringe FLUSH PRN (10:59)
--- NOTE | 2020-12-21 11:13 | EDM.PDOC ---
ED HPI GENERAL MEDICAL PROBLEM - General Chief Complaint: Respiratory Problem Stated Complaint: DIZZY Time Seen by Provider: 12/21/20 10:41 Source of Information: Reports: Patient History Limitations: Reports: No Limitations - History of Present Illness INITIAL COMMENTS - FREE TEXT/NARRATIVE: 55-year-old female with history of diabetes and DKA, asthma, CAD, Mauricio, HHS, CARLOS EDUARDO, UTI presents feeling lightheaded and shortness of breath with cough. She woke up about 1 hour ago and then started noticing bitemporal headache. She admits to chills, sore throat, generalized malaise, diffuse myalgia, cough with clear sputum, abdominal pain. She sustained a right tib-fib fracture in August 2020 and has a boot in her right leg but she has not been able to attend out of home physical therapy. So she has not been taking off her boot. She is currently wheelchair-bound. She was tested Covid negative in August. She denies fever, nausea, vomiting, diarrhea, runny nose, chest pain. Her home health was trying to send her into the ER over the past week but she denied wanting to come in. ROS: A 10-point review of systems, other than pertinent positives and negatives as stated per HPI, is otherwise negative Past medical history: No additional pertinent history Past Surgical history: No additional pertinent history Social history: No additional pertinent history Family history: No additional pertinent history PHYSICAL EXAM General: AOx4, GCS = 15, hard of hearing, ill-appearing. HEENT: dry mucous membrane Neck: supple, no meningismus, no Kernig or Brudzinski Cardiac: S1S2 RRR Respiratory: CTAB, no crackles or rales, no wheezing Abdomen: Soft, abdominal wall anasarca, right lower quadrant tender, no rebound or guarding, nondistended, no pulsatile mass. Back: nontender Musculoskeletal: NVI distally, Ortho boot in right leg, no deformity Neuro: No focal deficits - Related Data Allergies Allergy/AdvReac Type Severity Reaction Status Date / Time latex Allergy Mild Rash Verified 12/21/20 10:37 Sulfa (Sulfonamide Allergy Unknown Airway Verified 12/21/20 10:37 Antibiotics) Tightness sulfur dioxide Allergy Airway Verified 12/21/20 10:37 Tightness Home Meds: Home Meds Furosemide [Lasix] 40 mg PO DAILY 11/07/19 [History] RX: Enalapril [Vasotec] 40 mg PO DAILY 11/07/19 [History] RX: Potassium Chloride 20 meq PO DAILY 11/07/19 [History] Past Medical History - Past Health History Medical/Surgical History: Denies Medical/Surgical History HEENT History: Reports: Other (See Below) Other HEENT History: has top denture Cardiovascular History: Reports: Hypertension, Other (See Below) Other Cardiovascular History: murmur as an infant, hypotesnion, "issues with heart racing" Respiratory History: Reports: Other (See Below) Other Respiratory History: Carbon Monoxide posioning Gastrointestinal History: Reports: Helicobacter Pylori, Other (See Below) Other Gastrointestinal History: gastroparesis Genitourinary History: Reports: Chronic Renal Insuffiency REPORT SPECIALIST History: Reports: Musculoskeletal History: Reports: Back Pain, Chronic Neurological History: Reports: Migraines, Other (See Below) Other Neuro History: "Silent Migraines" Psychiatric History: Reports: Anxiety, Depression Endocrine/Metabolic History: Reports: Diabetes, Type II Other Endocrine/Metabolic History: Pt questions this Dx Hematologic History: Reports: Other (See Below) Other Hematologic History: States "bacterium in blood" Immunologic History: Reports: None Other Immunologic History: states was in the hospital in [place] last summer with blood infection "not sure what it was called" Oncologic (Cancer) History: Reports: Ovarian Dermatologic History: Reports: Eczema - Infectious Disease History Infectious Disease History: Reports: Chicken Pox, MRSA - Past Surgical History Head Surgeries/Procedures: Reports: None HEENT Surgical History: Reports: None Cardiovascular Surgical History: Reports: None Respiratory Surgical History: Reports: None GI Surgical History: Reports: EGD Female Surgical History: Reports: None Endocrine Surgical History: Reports: None Neurological Surgical History: Reports: None Musculoskeletal Surgical History: Reports: Carpal Tunnel Oncologic Surgical History: Reports: None Other Oncologic Surgeries/Procedures: surgery for her ovarian cancer- chemo after when she was 24 yrs old Dermatological Surgical History: Reports: None - History Comment History Comment: Son says she's been evaluated for these sxs in past but doesn't recall where w/u was done (including CT of abd). No EGD ever done. The h pylori was dx'd by serologies. Social & Family History - Family History Family Medical History: No Pertinent Family History Cardiac: Reports: Hypertension Other Cardiac Family History: Mother, Aunt Respiratory: Reports: COPD Other Respiratory Family Hisory: Uncle GI: Reports: None Neurological: Reports: Other (See Below) Other Neurological Family History: Stroke-Grandmother Endocrine/Metabolic: Reports: Diabetes, type II - Tobacco Use Packs/Tins Daily: 1 - Caffeine Use Caffeine Use: Reports: None - Recreational Drug Use Recreational Drug Use: No - Living Situation & Occupation Living situation: Reports: Single Occupation: Unemployed ED ROS GENERAL - Review of Systems Review Of Systems: See Below (see dictation) ED EXAM, GENERAL - Physical Exam Exam: See Below (see dictation) ED RESPIRATORY PROCEDURES - Additional/Other Procedure(s) Other (Free Text) Procedure(s): US guided Peripheral IV insertion: Indication: Difficult venous access, RN unable to obtain access. Linear probe was utilized to visualize upper extremity vasculature. Skin and probe were prepped with chlorhexidine carefully. Sterile petroleum jelly was utilized. An 20 gauge catheter was inserted into the right basilic vein in one attempt. Patient tolerated well. Sterile procedure observed. No complications. #1 Interpretation EKG Interpretation Comments: 77 bpm, NSR, normal QRS interval, no STEMI. EKG and rhythm strip interpreted by me at 1029 Course - Vital Signs Last Recorded V/S: Last Vital Signs Temp 97 F 12/21/20 10:32 Pulse 77 12/21/20 14:50 Resp 16 12/21/20 14:50 BP 144/81 H 12/21/20 14:50 Pulse Ox 98 12/21/20 14:50 - Orders/Labs/Meds Orders: Active Orders 24 hr Category Date Time Status Cardiac Monitoring [RC] . DIRECTED Care 12/21/20 10:59 Active EKG Documentation Completion [RC] STAT Care 12/21/20 10:59 Active Pulse Oximetry [RC] ASDIRECTED Care 12/21/20 10:59 Active ABG [BLOOD GAS ARTERIAL] [BG] Stat Lab 12/21/20 11:18 Ordered CULTURE BLOOD [BC] Stat Lab 12/21/20 13:14 Received CULTURE BLOOD [BC] Stat Lab 12/21/20 13:30 Received PROCALCITONIN [REF] Stat Lab 12/21/20 13:30 Received Serum Ketones [B-HYDROXYBUTYRATE] [REF] Stat Lab 12/21/20 10:44 Received UA W/MICROSCOPIC [URIN] Stat Lab 12/21/20 11:01 Ordered Azithromycin [Zithromax] 500 mg Med 12/21/20 15:00 Active Sodium Chloride 0.9% [Normal Saline (AdvBag)] 250 ml IV ONETIME Heparin Sodium/0.45% NaCl [Heparin 25,000 Units in 1/2 Med 12/21/20 15:45 Active NS 500 ML] 500 ml IV TITRATE Sodium Chloride 0.9% [Saline Flush] Med 12/21/20 10:59 Active 10 ml FLUSH ASDIRECTED PRN Sodium Chloride 0.9% [Saline Flush] Med 12/21/20 10:59 Active 2.5 ml FLUSH ASDIRECTED PRN Blood Culture x2 Reflex Set [OM.PC] Stat Oth 12/21/20 11:50 Ordered Saline Lock Insert [OM.PC] Stat Oth 12/21/20 10:59 Ordered Medication Orders Azithromycin 500 mg/ Sodium (Chloride) 250 mls @ 250 mls/hr IV ONETIME ANTHONY Last Admin: 12/21/20 15:21 Dose: 250 mls/hr Documented by: MIGUEL ANGEL Heparin Sodium/Sodium Chloride (Heparin 25,000 Units In 1/2 Ns 500 Ml) 500 mls @ 24 mls/hr IV TITRATE ANTHONY; Protocol Sodium Chloride (Saline Flush) 10 ml FLUSH ASDIRECTED PRN PRN Reason: Keep Vein Open Last Admin: 12/21/20 11:51 Dose: 10 ml Documented by: MIGUEL ANGEL Sodium Chloride (Saline Flush) 2.5 ml FLUSH ASDIRECTED PRN PRN Reason: Keep Vein Open Last Admin: 12/21/20 11:51 Dose: 2.5 ml Documented by: MIGUEL ANGEL Labs: Laboratory Tests 12/21/20 12/21/20 12/21/20 Range/Units 10:44 10:44 10:44 WBC 7.23 (4.0-11.0) K/uL RBC 3.48 L (4.30-5.90) M/uL Hgb 9.7 L (12.0-16.0) g/dL Hct 33.3 L (36.0-46.0) % MCV 95.7 (80.0-98.0) fL MCH 27.9 (27.0-32.0) pg MCHC 29.1 L (31.0-37.0) g/dL RDW Std Deviation 52.7 (28.0-62.0) fl RDW Coeff of Kennedi 15 (11.0-15.0) % Plt Count 274 (150-400) K/uL MPV 11.60 (7.40-12.00) fL Neut % (Auto) 78.7 (48.0-80.0) % Lymph % (Auto) 13.7 L (16.0-40.0) % [place] % (Auto) 6.2 (0.0-15.0) % Eos % (Auto) 1.0 (0.0-7.0) % Baso % (Auto) 0.4 (0.0-1.5) % Neut # (Auto) 5.7 (1.4-5.7) K/uL Lymph # (Auto) 1.0 (0.6-2.4) K/uL [place] # (Auto) 0.5 (0.0-0.8) K/uL Eos # (Auto) 0.1 (0.0-0.7) K/uL Baso # (Auto) 0.0 (0.0-0.1) K/uL Nucleated RBC % 0.0 /100WBC Nucleated RBCs # 0 K/uL INR 1.11 APTT (18.6-31.3) SEC D-Dimer, Quantitative (0.0-0.50) mg/L FEU VBG pH (7.31-7.41) VBG pCO2 (35-45) mmHG VBG pO2 (30-40) mmHG VBG HCO3 (22-30) mEq/L VBG Total CO2 (41-51) mmol/L VBG Base Excess (-3.0-3.0) Lactate (0.20-2.00) mmol/L Sodium 143 (136-145) mmol/L Potassium 4.8 (3.5-5.1) mmol/L Chloride 110 H (98-107) mmol/L Carbon Dioxide 26.1 (21.0-32.0) mmol/L BUN 54 H (7.0-18.0) mg/dL Creatinine 3.5 H (0.6-1.0) mg/dL Est Cr Clr Drug Dosing 18.75 mL/min Estimated GFR (MDRD) 13.7 ml/min Glucose 98 (74-106) mg/dL Calcium 8.0 L (8.5-10.1) mg/dL Phosphorus 5.8 H (2.6-4.7) mg/dL Magnesium 1.9 (1.8-2.4) mg/dL Ferritin (8-252) ng/mL Total Bilirubin 0.1 L (0.2-1.0) mg/dL AST 30 (15-37) IU/L ALT 24 (14-63) IU/L Alkaline Phosphatase 184 H (46-116) U/L Lactate Dehydrogenase (81-234) U/L Creatine Kinase (26-308) U/L Troponin I 0.156 H* (0.000-0.056) ng/mL C-Reactive Protein (0.00-0.90) mg/dL B-Natriuretic Peptide (<100) PG/ML Total Protein 5.9 L (6.4-8.2) g/dL Albumin 1.7 L (3.4-5.0) g/dL Globulin 4.2 H (2.6-4.0) g/dL Albumin/Globulin Ratio 0.4 L (0.9-1.6) SARS-CoV-2 RNA (CHIDI) (NEGATIVE) 12/21/20 12/21/20 12/21/20 Range/Units 10:44 10:44 10:44 WBC (4.0-11.0) K/uL RBC (4.30-5.90) M/uL Hgb (12.0-16.0) g/dL Hct (36.0-46.0) % MCV (80.0-98.0) fL MCH (27.0-32.0) pg MCHC (31.0-37.0) g/dL RDW Std Deviation (28.0-62.0) fl RDW Coeff of Kennedi (11.0-15.0) % Plt Count (150-400) K/uL MPV (7.40-12.00) fL Neut % (Auto) (48.0-80.0) % Lymph % (Auto) (16.0-40.0) % [place] % (Auto) (0.0-15.0) % Eos % (Auto) (0.0-7.0) % Baso % (Auto) (0.0-1.5) % Neut # (Auto) (1.4-5.7) K/uL Lymph # (Auto) (0.6-2.4) K/uL [place] # (Auto) (0.0-0.8) K/uL Eos # (Auto) (0.0-0.7) K/uL Baso # (Auto) (0.0-0.1) K/uL Nucleated RBC % /100WBC Nucleated RBCs # K/uL INR APTT 25.0 (18.6-31.3) SEC D-Dimer, Quantitative (0.0-0.50) mg/L FEU VBG pH (7.31-7.41) VBG pCO2 (35-45) mmHG VBG pO2 (30-40) mmHG VBG HCO3 (22-30) mEq/L VBG Total CO2 (41-51) mmol/L VBG Base Excess (-3.0-3.0) Lactate (0.20-2.00) mmol/L Sodium (136-145) mmol/L Potassium (3.5-5.1) mmol/L Chloride (98-107) mmol/L Carbon Dioxide (21.0-32.0) mmol/L BUN (7.0-18.0) mg/dL Creatinine (0.6-1.0) mg/dL Est Cr Clr Drug Dosing mL/min Estimated GFR (MDRD) ml/min Glucose (74-106) mg/dL Calcium (8.5-10.1) mg/dL Phosphorus (2.6-4.7) mg/dL Magnesium (1.8-2.4) mg/dL Ferritin (8-252) ng/mL Total Bilirubin (0.2-1.0) mg/dL AST (15-37) IU/L ALT (14-63) IU/L Alkaline Phosphatase (46-116) U/L Lactate Dehydrogenase 273 H (81-234) U/L Creatine Kinase 195 (26-308) U/L Troponin I (0.000-0.056) ng/mL C-Reactive Protein 2.00 H (0.00-0.90) mg/dL B-Natriuretic Peptide 791 H (<100) PG/ML Total Protein (6.4-8.2) g/dL Albumin (3.4-5.0) g/dL Globulin (2.6-4.0) g/dL Albumin/Globulin Ratio (0.9-1.6) SARS-CoV-2 RNA (CHIDI) (NEGATIVE) 12/21/20 12/21/20 12/21/20 Range/Units 10:44 10:44 11:25 WBC (4.0-11.0) K/uL RBC (4.30-5.90) M/uL Hgb (12.0-16.0) g/dL Hct (36.0-46.0) % MCV (80.0-98.0) fL MCH (27.0-32.0) pg MCHC (31.0-37.0) g/dL RDW Std Deviation (28.0-62.0) fl RDW Coeff of Kennedi (11.0-15.0) % Plt Count (150-400) K/uL MPV (7.40-12.00) fL Neut % (Auto) (48.0-80.0) % Lymph % (Auto) (16.0-40.0) % [place] % (Auto) (0.0-15.0) % Eos % (Auto) (0.0-7.0) % Baso % (Auto) (0.0-1.5) % Neut # (Auto) (1.4-5.7) K/uL Lymph # (Auto) (0.6-2.4) K/uL [place] # (Auto) (0.0-0.8) K/uL Eos # (Auto) (0.0-0.7) K/uL Baso # (Auto) (0.0-0.1) K/uL Nucleated RBC % /100WBC Nucleated RBCs # K/uL INR APTT (18.6-31.3) SEC D-Dimer, Quantitative 3.11 H (0.0-0.50) mg/L FEU VBG pH (7.31-7.41) VBG pCO2 (35-45) mmHG VBG pO2 (30-40) mmHG VBG HCO3 (22-30) mEq/L VBG Total CO2 (41-51) mmol/L VBG Base Excess (-3.0-3.0) Lactate (0.20-2.00) mmol/L Sodium (136-145) mmol/L Potassium (3.5-5.1) mmol/L Chloride (98-107) mmol/L Carbon Dioxide (21.0-32.0) mmol/L BUN (7.0-18.0) mg/dL Creatinine (0.6-1.0) mg/dL Est Cr Clr Drug Dosing mL/min Estimated GFR (MDRD) ml/min Glucose (74-106) mg/dL Calcium (8.5-10.1) mg/dL Phosphorus (2.6-4.7) mg/dL Magnesium (1.8-2.4) mg/dL Ferritin 79 (8-252) ng/mL Total Bilirubin (0.2-1.0) mg/dL AST (15-37) IU/L ALT (14-63) IU/L Alkaline Phosphatase (46-116) U/L Lactate Dehydrogenase (81-234) U/L Creatine Kinase (26-308) U/L Troponin I (0.000-0.056) ng/mL C-Reactive Protein (0.00-0.90) mg/dL B-Natriuretic Peptide (<100) PG/ML Total Protein (6.4-8.2) g/dL Albumin (3.4-5.0) g/dL Globulin (2.6-4.0) g/dL Albumin/Globulin Ratio (0.9-1.6) SARS-CoV-2 RNA (CHIDI) NEGATIVE (NEGATIVE) 12/21/20 12/21/20 Range/Units 13:30 13:30 WBC (4.0-11.0) K/uL RBC (4.30-5.90) M/uL Hgb (12.0-16.0) g/dL Hct (36.0-46.0) % MCV (80.0-98.0) fL MCH (27.0-32.0) pg MCHC (31.0-37.0) g/dL RDW Std Deviation (28.0-62.0) fl RDW Coeff of Kennedi (11.0-15.0) % Plt Count (150-400) K/uL MPV (7.40-12.00) fL Neut % (Auto) (48.0-80.0) % Lymph % (Auto) (16.0-40.0) % [place] % (Auto) (0.0-15.0) % Eos % (Auto) (0.0-7.0) % Baso % (Auto) (0.0-1.5) % Neut # (Auto) (1.4-5.7) K/uL Lymph # (Auto) (0.6-2.4) K/uL [place] # (Auto) (0.0-0.8) K/uL Eos # (Auto) (0.0-0.7) K/uL Baso # (Auto) (0.0-0.1) K/uL Nucleated RBC % /100WBC Nucleated RBCs # K/uL INR APTT (18.6-31.3) SEC D-Dimer, Quantitative (0.0-0.50) mg/L FEU VBG pH 7.26 L (7.31-7.41) VBG pCO2 57 H (35-45) mmHG VBG pO2 38 (30-40) mmHG VBG HCO3 26 (22-30) mEq/L VBG Total CO2 25 L (41-51) mmol/L VBG Base Excess -1.8 (-3.0-3.0) Lactate 0.6 (0.20-2.00) mmol/L Sodium (136-145) mmol/L Potassium (3.5-5.1) mmol/L Chloride (98-107) mmol/L Carbon Dioxide (21.0-32.0) mmol/L BUN (7.0-18.0) mg/dL Creatinine (0.6-1.0) mg/dL Est Cr Clr Drug Dosing mL/min Estimated GFR (MDRD) ml/min Glucose (74-106) mg/dL Calcium (8.5-10.1) mg/dL Phosphorus (2.6-4.7) mg/dL Magnesium (1.8-2.4) mg/dL Ferritin (8-252) ng/mL Total Bilirubin (0.2-1.0) mg/dL AST (15-37) IU/L ALT (14-63) IU/L Alkaline Phosphatase (46-116) U/L Lactate Dehydrogenase (81-234) U/L Creatine Kinase (26-308) U/L Troponin I (0.000-0.056) ng/mL C-Reactive Protein (0.00-0.90) mg/dL B-Natriuretic Peptide (<100) PG/ML Total Protein (6.4-8.2) g/dL Albumin (3.4-5.0) g/dL Globulin (2.6-4.0) g/dL Albumin/Globulin Ratio (0.9-1.6) SARS-CoV-2 RNA (CHIDI) (NEGATIVE) Meds: Medications Generic Name Dose Route Start Last Admin Trade Name Norbertq PRN Reason Stop Dose Admin Azithromycin 500 mg/ Sodium 250 mls @ 250 mls/hr 12/21/20 15:00 12/21/20 15:21 Chloride IV 250 mls/hr ONETIME ANTHONY Administration Heparin Sodium/Sodium Chloride 500 mls @ 24 mls/hr 12/21/20 15:45 Heparin 25,000 Units In 1/2 Ns 500 Ml IV TITRATE ANTHONY Protocol 12 UNITS/KG/HR Sodium Chloride 10 ml 12/21/20 10:59 12/21/20 11:51 Saline Flush FLUSH 10 ml ASDIRECTED PRN Administration Keep Vein Open Sodium Chloride 2.5 ml 12/21/20 10:59 12/21/20 11:51 Saline Flush FLUSH 2.5 ml ASDIRECTED PRN Administration Keep Vein Open Discontinued Medications Generic Name Dose Route Start Last Admin Trade Name Matty PRN Reason Stop Dose Admin Aspirin 325 mg 12/21/20 11:47 12/21/20 11:51 Aspirin PO 12/21/20 11:48 325 mg ONETIME ONE Administration Heparin Sodium (Porcine) 4,000 units 12/21/20 15:32 Heparin Sodium IVPUSH 12/21/20 15:33 .BOLUS ONE Lorazepam 1 mg 12/21/20 15:51 12/21/20 18:26 Ativan IVPUSH 12/21/20 15:52 Not Given ONETIME ONE - Re-Assessments/Exams Free Text/Narrative Re-Assessment/Exam: 12/21/20 11:17 Placed on nonrebreather for 67% on room air. 12/21/20 11:45 I reassessed the patient, her pulse ox improved to 92% on 8 L NRB. 12/21/20 12:43 Patient will require transfer to outside facility for the need of higher level of care not available at this facility, and the need for protection consultant services unavailable at this facility. Any emergency conditions have been stabilized to the ability of the ED prior to the transfer. Patient does not want to be transferred to [facility]. Patient wants to be transferred to [facility]. 12/21/20 15:[address] Ross at [facility], will accept transfer. Ordered IV Rocephin and azithromycin, heparin bolus and drip, patient received ASA 325 mg p.o. 12/21/20 18:26 Patient currently boarding in the ER, awaiting for transport. Patient intermittently anxious, demanding to have her son at bedside. She denied IV or IM Ativan. Son was brought in to talk to the patient, she calmed down immediately. Departure - Departure Time of Disposition: 15:59 Disposition: DC/Tfer to Acute Hospital 02 Condition: Good Clinical Impression: NSTEMI (non-ST elevated myocardial infarction), ARF (acute renal failure), Hypoxemia requiring supplemental oxygen, Bilateral pleural effusion, Anasarca - Discharge Information *PRESCRIPTION DRUG MONITORING PROGRAM REVIEWED*: Not Applicable *COPY OF PRESCRIPTION DRUG MONITORING REPORT IN PATIENT ROSINA: Not Applicable Referrals: Dre Macario MD [Primary Care Provider] - Forms: ED Department Discharge Critical Care Note - Critical Care Note Total Time (mins): 75 Comments: CRITCAL CARE: The high probability of sudden, clinically significant deterioration in the patient's condition required the highest level of my preparedness to intervene urgently. The services I provided to this patient were to treat and/or prevent clinically significant deterioration. Services included the following: chart data review, reviewing nursing notes and/or old charts, documentation time, protection consultant collaboration regarding findings and treatment options, medication orders and management, direct patient care, vital sign assessments and ordering, interpreting and reviewing diagnostic studies/lab tests. Aggregate critical care time includes only time during which I was engaged in work directly related to the patient's care, as described above, whether at the bedside or elsewhere in the Emergency Department. It did not include time spent performing other reported procedures or the services of residents, students, nurses or physician assistants. Frequent interventions and/or frequent repeat evaluations were required as well as counseling and coordination of care regarding prognosis, treatments, and discussions with patient, staff and consultants. Critical Care (excluding other procedures): 75 minutes Sepsis Event Note (ED) - Evaluation Sepsis Screening Result: No Definite Risk - Focused Exam Vital Signs: Vital Signs Temp Pulse Resp BP Pulse Ox 12/21/20 14:50 77 16 144/81 H 98 12/21/20 12:50 78 18 135/81 98 12/21/20 11:55 78 18 109/82 96 12/21/20 11:15 81 18 118/82 92 L 12/21/20 10:33 98 12/21/20 10:32 97 F 75 18 137/84 67 L - My Orders Last 24 Hours: My Active Orders 12/21/20 10:44 Serum Ketones [B-HYDROXYBUTYRATE] [REF] Stat 12/21/20 10:59 Cardiac Monitoring [RC] . DIRECTED EKG Documentation Completion [RC] STAT Pulse Oximetry [RC] ASDIRECTED Sodium Chloride 0.9% [Saline Flush] 10 ml FLUSH ASDIRECTED PRN Sodium Chloride 0.9% [Saline Flush] 2.5 ml FLUSH ASDIRECTED PRN Saline Lock Insert [OM.PC] Stat 12/21/20 11:01 UA W/MICROSCOPIC [URIN] Stat 12/21/20 11:18 ABG [BLOOD GAS ARTERIAL] [BG] Stat 12/21/20 11:50 Blood Culture x2 Reflex Set [OM.PC] Stat 12/21/20 13:14 CULTURE BLOOD [BC] Stat 12/21/20 13:30 CULTURE BLOOD [BC] Stat PROCALCITONIN [REF] Stat 12/21/20 15:00 Azithromycin [Zithromax] 500 mg Sodium Chloride 0.9% [Normal Saline (AdvBag)] 250 ml IV ONETIME 12/21/20 15:45 Heparin Sodium/0.45% NaCl [Heparin 25,000 Units in 1/2 NS 500 ML] 500 ml IV TITRATE - Assessment/Plan Last 24 Hours: My Active Orders 12/21/20 10:44 Serum Ketones [B-HYDROXYBUTYRATE] [REF] Stat 12/21/20 10:59 Cardiac Monitoring [RC] . DIRECTED EKG Documentation Completion [RC] STAT Pulse Oximetry [RC] ASDIRECTED Sodium Chloride 0.9% [Saline Flush] 10 ml FLUSH ASDIRECTED PRN Sodium Chloride 0.9% [Saline Flush] 2.5 ml FLUSH ASDIRECTED PRN Saline Lock Insert [OM.PC] Stat 12/21/20 11:01 UA W/MICROSCOPIC [URIN] Stat 12/21/20 11:18 ABG [BLOOD GAS ARTERIAL] [BG] Stat 12/21/20 11:50 Blood Culture x2 Reflex Set [OM.PC] Stat 12/21/20 13:14 CULTURE BLOOD [BC] Stat 12/21/20 13:30 CULTURE BLOOD [BC] Stat PROCALCITONIN [REF] Stat 12/21/20 15:00 Azithromycin [Zithromax] 500 mg Sodium Chloride 0.9% [Normal Saline (AdvBag)] 250 ml IV ONETIME 12/21/20 15:45 Heparin Sodium/0.45% NaCl [Heparin 25,000 Units in 1/2 NS 500 ML] 500 ml IV TITRATE
[2020-12-21 11:31] LABS: CARBON DIOXIDE,CO2 26.1 mmol/L (21.0-32.0); POTASSIUM,K 4.8 mmol/L (3.5-5.1)
[2020-12-21] MEDS ORDERED: Aspirin 325 MG Tab PO ONE (11:47)
--- NOTE | 2020-12-21 11:47 | CR ---
INDICATION: Dyspnea COMPARISON: January 20, 2020 TECHNIQUE: Single-view chest radiograph FINDINGS: TUBES AND LINES: None. HEART AND MEDIASTINUM: The heart is mildly enlarged. LUNGS AND PLEURAL SPACES: Moderate airspace disease primarily involving the mid lungs and the bases with small to moderate effusions, left greater than right. No pneumothorax.The findings could represent pneumonia or atypical appearance of edema OSSEOUS STRUCTURES: Age-appropriate appearance. No acute focal finding. IMPRESSION: Moderate bilateral airspace disease primarily involving the mid-lungs in the bases, left greater than right with bilateral effusions, left greater than right. Primary differential considerations are pneumonia versus edema. Dictated by Surendra Frey MD @ Dec 21 2020 11:40AM Signed by Dr. Surendra Frey @ Dec 21 2020 11:45AM
--- NOTE | 2020-12-21 14:41 | CT ---
Indication: Vomiting Technique: CT of the chest, abdomen and pelvis was performed. The study is extraordinarily limited technically due to motion, positioning difficulties, streak artifact related to motion, streak artifact related to the patient`s arms, lack of intravenous contrast, lack of oral contrast and paucity of fat planes imaging was acquired from the thoracic inlet through the symphysis pubis Comparison: None Findings: CHEST: Profound body wall edema. No lacie collection. Large bilateral effusions. Bibasilar atelectasis associated with effusions. Regarding the aerated lungs, significant emphysema and probably mild edema. Enlarged heart. Small pericardial effusion. Atherosclerotic vascular calcifications. No destructive process of bone. ABDOMEN AND PELVIS: Profound body wall edema. No lacie collection. Mild ascites. Within the substantial limitations of the study I see no obvious acute or focal finding involving the liver, gallbladder, pancreas, kidneys or spleen. There is questionable retroperitoneal lymphadenopathy in the certain locations. Impression: 1. Markedly limited study due to multiple factors. 2. Anasarca pattern consisting of profound body wall edema, effusions and ascites of uncertain etiology 3. In the chest, the there are significant effusions with bibasilar atelectasis. There is emphysema and probably mild interstitial edema. 4. In the abdomen and pelvis, the study is extraordinarily limited but I see no obvious intra-abdominal finding other than ascites and questionable retroperitoneal lymphadenopathy. Please note that all CT scans at this facility use dose modulation, iterative reconstruction, and/or weight-based dosing when appropriate to reduce radiation dose to as low as reasonably achievable. Dictated by Surendra Frey MD @ Dec 21 2020 2:22PM Signed by Dr. Surendra Frey @ Dec 21 2020 2:39PM
[2020-12-21] MEDS ORDERED: Azithromycin 500 MG in Sodium Chloride 0.9% 250 ML IV SCH (15:00)
[2020-12-21] MEDS ORDERED: Heparin Sodium 5,000 Units/ML Vial IVPUSH ONE (15:32)
[2020-12-21] MEDS ORDERED: Heparin Sodium/0.45% NaCl 500 ML IV SCH (15:45)
[2020-12-21] MEDS ORDERED: LORazepam 2 MG/ML SDV IVPUSH ONE ×4 (15:51→20:48)
--- NOTE | 2020-12-21 17:46 | CT ---
INDICATION: Headache. CT HEAD WITHOUT CONTRAST TECHNIQUE: Multiple axial CT images were performed through the head without intravenous contrast administration. COMPARISON: 11/07/[address] FINDINGS: No acute intracranial hemorrhage is identified. No extra-axial collections are evident and there is no mass effect or midline shift. Ventricles are normal in size and configuration. Brain parenchyma appears normal with unremarkable ball-white differentiation. Osseous structures are within normal limits and no fractures are seen. Included portions of the paranasal sinuses and mastoid air cells are normally aerated. IMPRESSION: Normal non-contrast head CT. DYLAN CAPELLAN MD [facility] Dictated by: Perry Capellan MD @ 12/21/2020 17:44:53 (Electronically Signed)
[2020-12-21] MEDS ORDERED: Heparin Sodium 5,000 Units/ML Vial ONE (19:21)
[2020-12-21 19:32] VITALS: BP 116/77; PULSE 77
[2020-12-21] MEDS ORDERED: LORazepam 2 MG/ML SDV ONE ×2 (20:44→20:47)
== END 2020-12-21 20:56 ==
LOC: MW.ED 10:26
DX: I21.4 Non-ST elevation (NSTEMI) myocardial infarction (principal); R09.02 Hypoxemia; J90 Pleural effusion, not elsewhere classified; I12.9 Hypertensive chronic kidney disease with stage 1 through stage 4 chronic kidney disease, or unspecified chronic kidney disease; E11.22 Type 2 diabetes mellitus with diabetic chronic kidney disease; N18.9 Chronic kidney disease, unspecified; N17.9 Acute kidney failure, unspecified; R60.1 Generalized edema; E11.43 Type 2 diabetes mellitus with diabetic autonomic (poly)neuropathy; K31.84 Gastroparesis; I10 Essential (primary) hypertension; Z72.0 Tobacco use; Z91.040 Latex allergy status; Z88.2 Allergy status to sulfonamides; Z79.899 Other long term (current) drug therapy; Z20.822 Contact with and (suspected) exposure to COVID-19
CPT/HCPCS: 36415; 70450; 71045; 71250; 74176; 80053; 82010; 82550; 82728; 82803; 83605; 83615; 83735; 83880; 84100; 84145; 84484; 85025; 85379; 85610; 85730; 86140; 87040; 87635; 93005; 96365; 96366; 96367; 96375; 99291; A9270; J0456; J1644; J2060; J7050; 99292; U0002

== ENCOUNTER 2021-02-23 08:58 | Emergency (ER) | payer MEDICARE, MEDICAID ==
--- NOTE | 2021-02-23 09:25 | EDM.PDOC ---
ED HPI GENERAL MEDICAL PROBLEM - General Chief Complaint: General Stated Complaint: ems Time Seen by Provider: 02/23/21 09:21 Source of Information: Reports: Patient History Limitations: Reports: No Limitations - History of Present Illness INITIAL COMMENTS - FREE TEXT/NARRATIVE: Pt is a 56-year-old female with multiple past medical problems who was sent over from clinic for fluid overload. Patient few weeks ago was told she need dialysis but at that time refused she went and saw her primary today and had swelling from her lower extremities up to her abdomen. Patient also reports that whenever she talks and was moved around she gets severely short of breath. Patient currently denies any chest pain fever chills cough or other symptoms. Patient also denies nausea vomiting. Whole Body Pain Score (Numeric/FACES): 8 - Related Data Allergies Allergy/AdvReac Type Severity Reaction Status Date / Time latex Allergy Mild Rash Verified 02/23/21 09:09 Sulfa (Sulfonamide Allergy Unknown Airway Verified 02/23/21 09:09 Antibiotics) Tightness sulfur dioxide Allergy Airway Verified 02/23/21 09:09 Tightness Home Meds: Home Meds Enalapril [Vasotec] 10 mg PO DAILY 11/07/19 [History] Furosemide [Lasix] 60 mg PO BID 11/07/19 [History] Potassium Chloride 20 meq PO BID 11/07/19 [History] Acetaminophen [8 Hour Pain Relief] 650 mg PO QID PRN 02/23/21 [History] Bisacodyl [Gentle Laxative] 1 supp RC DAILY PRN 02/23/21 [History] Carbamide Peroxide [Debrox 6.5% Otic Soln] 3 drop EARBOTH Q12H 02/23/21 [History] Epoetin Negro [Procrit] 5,000 unit SUBCUT ASDIRECTED 02/23/21 [History] Ergocalciferol (Vitamin D2) [Vitamin D2] 50,000 unit PO DAILY 02/23/21 [History] Pantoprazole [ProTONIX] 40 mg PO DAILY 02/23/21 [History] amLODIPine [Norvasc] 10 mg PO DAILY 02/23/21 [History] cloNIDine [Catapres] 0.3 mg PO DAILY 02/23/21 [History] metOLazone [Metolazone] 5 mg PO ASDIRECTED 02/23/21 [History] Past Medical History - Past Health History Medical/Surgical History: Denies Medical/Surgical History HEENT History: Reports: Other (See Below) Other HEENT History: has top denture Cardiovascular History: Reports: Hypertension, Other (See Below) Other Cardiovascular History: murmur as an infant, hypotesnion, "issues with heart racing" Respiratory History: Reports: Other (See Below) Other Respiratory History: Carbon Monoxide posioning Gastrointestinal History: Reports: Helicobacter Pylori, Other (See Below) Other Gastrointestinal History: gastroparesis Genitourinary History: Reports: Chronic Renal Insuffiency 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: Musculoskeletal History: Reports: Back Pain, Chronic Neurological History: Reports: Migraines, Other (See Below) Other Neuro History: "Silent Migraines" Psychiatric History: Reports: Anxiety, Depression Endocrine/Metabolic History: Reports: Diabetes, Type II Other Endocrine/Metabolic History: Pt questions this Dx Hematologic History: Reports: Other (See Below) Other Hematologic History: States "bacterium in blood" Immunologic History: Reports: None Other Immunologic History: states was in the hospital in [place] last summer with blood infection "not sure what it was called" Oncologic (Cancer) History: Reports: Ovarian Dermatologic History: Reports: Eczema - Infectious Disease History Infectious Disease History: Reports: Chicken Pox, MRSA - Past Surgical History Head Surgeries/Procedures: Reports: None HEENT Surgical History: Reports: None Cardiovascular Surgical History: Reports: None Respiratory Surgical History: Reports: None GI Surgical History: Reports: EGD Female Surgical History: Reports: None Endocrine Surgical History: Reports: None Neurological Surgical History: Reports: None Musculoskeletal Surgical History: Reports: Carpal Tunnel Oncologic Surgical History: Reports: None Other Oncologic Surgeries/Procedures: surgery for her ovarian cancer- chemo after when she was 24 yrs old Dermatological Surgical History: Reports: None - History Comment History Comment: Son says she's been evaluated for these sxs in past but doesn't recall where w/u was done (including CT of abd). No EGD ever done. The h pylori was dx'd by serologies. Social & Family History - Family History Family Medical History: No Pertinent Family History Cardiac: Reports: Hypertension Other Cardiac Family History: Mother, Aunt Respiratory: Reports: COPD Other Respiratory Family Hisory: Uncle GI: Reports: None Neurological: Reports: Other (See Below) Other Neurological Family History: Stroke-Grandmother Endocrine/Metabolic: Reports: Diabetes, type II - Caffeine Use Caffeine Use: Reports: None - Living Situation & Occupation Living situation: Reports: Single Occupation: Unemployed ED ROS GENERAL - Review of Systems Review Of Systems: See Below Constitutional: Reports: No Symptoms HEENT: Reports: No Symptoms Respiratory: Reports: No Symptoms Cardiovascular: Reports: No Symptoms, Edema Endocrine: Reports: No Symptoms GI/Abdominal: Reports: No Symptoms : Reports: No Symptoms Musculoskeletal: Reports: No Symptoms Skin: Reports: No Symptoms Neurological: Reports: No Symptoms Psychiatric: Reports: No Symptoms Hematologic/Lymphatic: Reports: No Symptoms Immunologic: Reports: No Symptoms ED EXAM, GENERAL - Physical Exam Exam: See Below Exam Limited By: No Limitations General Appearance: Alert, WD/WN Eye Exam: Bilateral Eye: EOMI, PERRL Respiratory/Chest: No Respiratory Distress, Lungs Clear, Normal Breath Sounds Cardiovascular: Normal Peripheral Pulses, Regular Rate, Rhythm GI/Abdominal: Normal Bowel Sounds, Soft, Non-Tender Extremities: Normal Inspection, Pedal Edema (up to abdomen ) Neurological: Alert, Oriented, Normal Cognition #1 Interpretation EKG Date: 02/23/21 Time: 09:10 Rhythm: NSR Rate (Beats/Min): 81 ST-T: Normal Course - Vital Signs Last Recorded V/S: Last Vital Signs Temp 96.9 F 02/23/21 09:11 Pulse 86 02/23/21 09:11 Resp 15 02/23/21 09:11 BP 151/72 H 02/23/21 09:11 Pulse Ox 93 L 02/23/21 09:11 - Orders/Labs/Meds Orders: Active Orders 24 hr Category Date Time Status EKG 12 Lead [EKG Documentation Completion] [RC] STAT Care 02/23/21 09:40 Active Labs: Laboratory Tests 02/23/21 02/23/21 02/23/21 Range/Units 09:06 09:06 09:06 WBC 7.42 (4.0-11.0) K/uL RBC 3.20 L (4.30-5.90) M/uL Hgb 9.1 L (12.0-16.0) g/dL Hct 28.5 L (36.0-46.0) % MCV 89.1 (80.0-98.0) fL MCH 28.4 (27.0-32.0) pg MCHC 31.9 (31.0-37.0) g/dL RDW Std Deviation 52.5 (28.0-62.0) fl RDW Coeff of Kennedi 16 H (11.0-15.0) % Plt Count 211 (150-400) K/uL MPV 11.90 (7.40-12.00) fL Neut % (Auto) 73.1 (48.0-80.0) % Lymph % (Auto) 12.9 L (16.0-40.0) % Callaway % (Auto) 9.6 (0.0-15.0) % Eos % (Auto) 3.9 (0.0-7.0) % Baso % (Auto) 0.5 (0.0-1.5) % Neut # (Auto) 5.4 (1.4-5.7) K/uL Lymph # (Auto) 1.0 (0.6-2.4) K/uL Callaway # (Auto) 0.7 (0.0-0.8) K/uL Eos # (Auto) 0.3 (0.0-0.7) K/uL Baso # (Auto) 0.0 (0.0-0.1) K/uL Nucleated RBC % 0.0 /100WBC Nucleated RBCs # 0 K/uL INR 1.08 APTT 24.0 (18.6-31.3) SEC Sodium 135 L (136-145) mmol/L Potassium 3.8 (3.5-5.1) mmol/L Chloride 101 (98-107) mmol/L Carbon Dioxide 21.9 (21.0-32.0) mmol/L BUN 75 H (7.0-18.0) mg/dL Creatinine 4.6 H (0.6-1.0) mg/dL Est Cr Clr Drug Dosing TNP Estimated GFR (MDRD) 9.9 ml/min Glucose 353 H (74-106) mg/dL Calcium 7.0 L (8.5-10.1) mg/dL Phosphorus 6.7 H (2.6-4.7) mg/dL Magnesium 1.6 L (1.8-2.4) mg/dL Total Bilirubin 0.3 (0.2-1.0) mg/dL AST 42 H (15-37) IU/L ALT 44 (14-63) IU/L Alkaline Phosphatase 628 H (46-116) U/L Total Protein 5.7 L (6.4-8.2) g/dL Albumin 1.6 L (3.4-5.0) g/dL Globulin 4.1 H (2.6-4.0) g/dL Albumin/Globulin Ratio 0.4 L (0.9-1.6) Lipase 138 (73-393) U/L - Re-Assessments/Exams Free Text/Narrative Re-Assessment/Exam: 02/23/21 10:06 Has been accepted to [facility]. Patient discharged stable potassium stable patients not require emergent dialysis but will be transferred as we do not dialysis available here. Departure - Departure Time of Disposition: 10:06 Disposition: DC/Tfer to [facility] 02 Condition: Good Clinical Impression: Fluid overload - Discharge Information *PRESCRIPTION DRUG MONITORING PROGRAM REVIEWED*: Not Applicable *COPY OF PRESCRIPTION DRUG MONITORING REPORT IN PATIENT ROSINA: Not Applicable Forms: ED Department Discharge Sepsis Event Note (ED) - Evaluation Sepsis Screening Result: No Definite Risk - Focused Exam Vital Signs: Vital Signs Temp Pulse Resp BP Pulse Ox 02/23/21 09:11 96.9 F 86 15 151/72 H 93 L - My Orders Last 24 Hours: My Active Orders 02/23/21 09:40 EKG 12 Lead [EKG Documentation Completion] [RC] STAT - Assessment/Plan Last 24 Hours: My Active Orders 02/23/21 09:40 EKG 12 Lead [EKG Documentation Completion] [RC] STAT Plan: Patient is a 56-year-old female who presents today for fluid overload. Patient was told she needed dialysis sometime ago but refused. Patient today is agreeable to dialysis. Will obtain basic labs check potassium and reassess.
[2021-02-23 09:47] LABS: BLOOD UREA NITROGEN,BUN 75 mg/dL (7.0-18.0); CARBON DIOXIDE,CO2 21.9 mmol/L (21.0-32.0); CHLORIDE,CL 101 mmol/L (98-107); GLUCOSE RANDOM 353 mg/dL (74-106); LIPASE 138 U/L (73-393); POTASSIUM,K 3.8 mmol/L (3.5-5.1); SODIUM,NA 135 mmol/L (136-145)
--- NOTE | 2021-02-23 09:52 | CR ---
Indication: Shortness of breath. Fluid overload. Technique: Chest 1 view Comparison: 12/21/2020. Findings: Cardiovascular and mediastinum: There is cardiomegaly and pulmonary vascular congestion. Lungs and pleural space: Prominent bilateral pleural effusions with bibasilar atelectasis favored over pneumonia. No pneumothorax. Bones and soft tissues: No acute findings. Impression : Findings consistent with congestive heart failure with persistent prominent bilateral pleural effusions. No significant change from the prior exam. Dictated by Roddy Johnson MD @ Feb 23 2021 9:48AM Signed by Dr. Roddy Johnson @ Feb 23 2021 9:50AM
[2021-02-23 10:30] VITALS: PULSE 82
[2021-02-23 10:31] VITALS: BP 145/76
== END 2021-02-23 11:12 ==
LOC: MW.ED 08:58
DX: E87.70 Fluid overload, unspecified (principal); I12.9 Hypertensive chronic kidney disease with stage 1 through stage 4 chronic kidney disease, or unspecified chronic kidney disease; E11.22 Type 2 diabetes mellitus with diabetic chronic kidney disease; N18.9 Chronic kidney disease, unspecified; Z91.040 Latex allergy status; Z88.2 Allergy status to sulfonamides; Z79.899 Other long term (current) drug therapy
CPT/HCPCS: 71045; 71045-26; 80053; 83690; 83735; 84100; 85025; 85610; 85730; 93005; 99285-25

== ENCOUNTER 2021-05-14 19:11 | Emergency (ER) | payer MEDICARE, MEDICAID ==
[2021-05-14] MEDS ORDERED: Haloperidol Lactate 5 MG/ML SDV IM ONE (19:31)
--- NOTE | 2021-05-14 19:38 | EDM.PDOC ---
ED HPI GENERAL MEDICAL PROBLEM - General Chief Complaint: Abdominal Pain Stated Complaint: ANXIETY, BACK AND ABDOMINAL PAIN Time Seen by Provider: 05/14/21 19:17 Source of Information: Reports: Patient History Limitations: Reports: No Limitations - History of Present Illness INITIAL COMMENTS - FREE TEXT/NARRATIVE: Patient is a 56-year-old female who presents today for abdominal pain. Patient family bedside states the patient has the stress anxiety induced abdominal pain since had multiple work-ups in [place] did not show any structural cause to this abdominal pain. Pain states the pain started today has been intense been vomiting cannot keep any down. Patient states the pain is wrapping feeling feels like her abdomen is being squeezed. Patient also reports having about 3-4 dialysis action last week. Patient currently denies any chest pain shortness of breath or other complaints. Upper Abdomen Pain Score (Numeric/FACES): 10 - Related Data Allergies Allergy/AdvReac Type Severity Reaction Status Date / Time latex Allergy Mild Rash Verified 05/14/21 19:30 Sulfa (Sulfonamide Allergy Unknown Airway Verified 05/14/21 19:30 Antibiotics) Tightness sulfur dioxide Allergy Airway Verified 05/14/21 19:30 Tightness Home Meds: Home Meds Enalapril [Vasotec] 10 mg PO DAILY 11/07/19 [History] Furosemide [Lasix] 60 mg PO BID 11/07/19 [History] Potassium Chloride 20 meq PO BID 11/07/19 [History] Acetaminophen [8 Hour Pain Relief] 650 mg PO QID PRN 02/23/21 [History] Bisacodyl [Gentle Laxative] 1 supp RC DAILY PRN 02/23/21 [History] Carbamide Peroxide [Debrox 6.5% Otic Soln] 3 drop EARBOTH Q12H 02/23/21 [History] Epoetin Negro [Procrit] 5,000 unit SUBCUT ASDIRECTED 02/23/21 [History] Ergocalciferol (Vitamin D2) [Vitamin D2] 50,000 unit PO DAILY 02/23/21 [History] Pantoprazole [ProTONIX] 40 mg PO DAILY 02/23/21 [History] amLODIPine [Norvasc] 10 mg PO DAILY 02/23/21 [History] cloNIDine [Catapres] 0.3 mg PO DAILY 02/23/21 [History] metOLazone [Metolazone] 5 mg PO ASDIRECTED 02/23/21 [History] Past Medical History - Past Health History Medical/Surgical History: Denies Medical/Surgical History HEENT History: Reports: Other (See Below) Other HEENT History: has top denture Cardiovascular History: Reports: Heart Failure, Hypertension, Pulmonary Hypertension, Other (See Below) Other Cardiovascular History: murmur as an , hypotesnion, "issues with heart racing" Respiratory History: Reports: COPD, PE, Other (See Below) Other Respiratory History: Carbon Monoxide posioning Gastrointestinal History: Reports: GERD, Helicobacter Pylori, Other (See Below) Other Gastrointestinal History: gastroparesis Genitourinary History: Reports: Acute Renal Failure, Chronic Renal Insuffiency 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: Musculoskeletal History: Reports: Back Pain, Chronic Neurological History: Reports: Migraines, Other (See Below) Other Neuro History: "Silent Migraines" Psychiatric History: Reports: Anxiety, Depression Endocrine/Metabolic History: Reports: Diabetes, Type II Other Endocrine/Metabolic History: Pt questions this Dx Hematologic History: Reports: Other (See Below) Other Hematologic History: States "bacterium in blood" Immunologic History: Reports: None Other Immunologic History: states was in the hospital in [place] last summer with blood infection "not sure what it was called" Oncologic (Cancer) History: Reports: Ovarian Dermatologic History: Reports: Eczema - Infectious Disease History Infectious Disease History: Reports: Chicken Pox, MRSA, Novel Coronavirus - Past Surgical History Head Surgeries/Procedures: Reports: None HEENT Surgical History: Reports: None Cardiovascular Surgical History: Reports: None Respiratory Surgical History: Reports: None GI Surgical History: Reports: EGD Female Surgical History: Reports: None Endocrine Surgical History: Reports: None Neurological Surgical History: Reports: None Musculoskeletal Surgical History: Reports: Carpal Tunnel Oncologic Surgical History: Reports: None Other Oncologic Surgeries/Procedures: surgery for her ovarian cancer- chemo after when she was 24 yrs old Dermatological Surgical History: Reports: None - History Comment History Comment: Son says she's been evaluated for these sxs in past but doesn't recall where w/u was done (including CT of abd). No EGD ever done. The h pylori was dx'd by serologies. Social & Family History - Family History Family Medical History: No Pertinent Family History Cardiac: Reports: Hypertension Other Cardiac Family History: Mother, Aunt Respiratory: Reports: COPD Other Respiratory Family Hisory: Uncle GI: Reports: None Neurological: Reports: Other (See Below) Other Neurological Family History: Stroke-Grandmother Endocrine/Metabolic: Reports: Diabetes, type II - Caffeine Use Caffeine Use: Reports: None - Living Situation & Occupation Living situation: Reports: Single Occupation: Unemployed ED ROS GENERAL - Review of Systems Review Of Systems: See Below Constitutional: Reports: No Symptoms HEENT: Reports: No Symptoms Respiratory: Reports: No Symptoms Cardiovascular: Reports: No Symptoms Endocrine: Reports: No Symptoms GI/Abdominal: Reports: Abdominal Pain : Reports: No Symptoms Musculoskeletal: Reports: No Symptoms Skin: Reports: No Symptoms Neurological: Reports: No Symptoms Psychiatric: Reports: No Symptoms Hematologic/Lymphatic: Reports: No Symptoms Immunologic: Reports: No Symptoms ED EXAM, GI/ABD - Physical Exam Exam: See Below Exam Limited By: No Limitations General Appearance: Alert, WD/WN, No Apparent Distress Eyes: Bilateral: EOMI Head: Atraumatic Respiratory/Chest: No Respiratory Distress, Lungs Clear, Normal Breath Sounds Cardiovascular: Normal Peripheral Pulses, Regular Rate, Rhythm GI/Abdominal Exam: Normal Bowel Sounds, Soft, Tender (Diffusely) Extremities: Normal Inspection, Normal Range of Motion Neurological: Alert, Oriented, Normal Cognition #1 Interpretation EKG Date: 05/14/21 Time: 19:51 Rhythm: NSR Rate (Beats/Min): 92 ST-T: Normal Course - Vital Signs Last Recorded V/S: Last Vital Signs Temp 97.1 F 05/14/21 19:20 Pulse 94 05/14/21 19:20 Resp 30 H 05/14/21 19:20 BP 94/67 05/14/21 19:20 Pulse Ox - Orders/Labs/Meds Orders: Active Orders 24 hr Category Date Time Status EKG Documentation Completion [RC] STAT Care 05/14/21 19:31 Active Abdomen Pelvis w Cont [CT] Stat Exams 05/14/21 19:32 Ordered Labs: Laboratory Tests 05/14/21 05/14/21 05/14/21 Range/Units 19:50 19:50 19:50 WBC 8.10 (4.0-11.0) K/uL RBC 3.45 L (4.30-5.90) M/uL Hgb 10.6 L (12.0-16.0) g/dL Hct 33.1 L (36.0-46.0) % MCV 95.9 (80.0-98.0) fL MCH 30.7 (27.0-32.0) pg MCHC 32.0 (31.0-37.0) g/dL RDW Std Deviation 50.7 (28.0-62.0) fl RDW Coeff of Kennedi 15 (11.0-15.0) % Plt Count 175 (150-400) K/uL MPV 11.80 (7.40-12.00) fL Neut % (Auto) 81.4 H (48.0-80.0) % Lymph % (Auto) 10.7 L (16.0-40.0) % [place] % (Auto) 5.9 (0.0-15.0) % Eos % (Auto) 1.6 (0.0-7.0) % Baso % (Auto) 0.4 (0.0-1.5) % Neut # (Auto) 6.6 H (1.4-5.7) K/uL Lymph # (Auto) 0.9 (0.6-2.4) K/uL [place] # (Auto) 0.5 (0.0-0.8) K/uL Eos # (Auto) 0.1 (0.0-0.7) K/uL Baso # (Auto) 0.0 (0.0-0.1) K/uL Nucleated RBC % 0.0 /100WBC Nucleated RBCs # 0 K/uL INR 1.11 APTT 25.0 (18.6-31.3) SEC Sodium 139 (136-145) mmol/L Potassium 4.2 (3.5-5.1) mmol/L Chloride 101 (98-107) mmol/L Carbon Dioxide 31.7 (21.0-32.0) mmol/L BUN 21 H (7.0-18.0) mg/dL Creatinine 2.8 H (0.6-1.0) mg/dL Est Cr Clr Drug Dosing TNP Estimated GFR (MDRD) 17.6 ml/min Glucose 160 H (74-106) mg/dL Calcium 8.2 L (8.5-10.1) mg/dL Phosphorus 3.1 (2.6-4.7) mg/dL Magnesium 1.4 L (1.8-2.4) mg/dL Total Bilirubin 0.3 (0.2-1.0) mg/dL AST 20 (15-37) IU/L ALT 12 L (14-63) IU/L Alkaline Phosphatase 136 H (46-116) U/L Creatine Kinase 110 (26-308) U/L Troponin I < 0.050 (0.000-0.056) ng/mL Total Protein 6.8 (6.4-8.2) g/dL Albumin 2.3 L (3.4-5.0) g/dL Globulin 4.5 H (2.6-4.0) g/dL Albumin/Globulin Ratio 0.5 L (0.9-1.6) Lipase 76 (73-393) U/L HCG, Qual (NEG) Ethyl Alcohol < 3.0 mg/dL 05/14/21 Range/Units 19:50 WBC (4.0-11.0) K/uL RBC (4.30-5.90) M/uL Hgb (12.0-16.0) g/dL Hct (36.0-46.0) % MCV (80.0-98.0) fL MCH (27.0-32.0) pg MCHC (31.0-37.0) g/dL RDW Std Deviation (28.0-62.0) fl RDW Coeff of Kennedi (11.0-15.0) % Plt Count (150-400) K/uL MPV (7.40-12.00) fL Neut % (Auto) (48.0-80.0) % Lymph % (Auto) (16.0-40.0) % Hyde % (Auto) (0.0-15.0) % Eos % (Auto) (0.0-7.0) % Baso % (Auto) (0.0-1.5) % Neut # (Auto) (1.4-5.7) K/uL Lymph # (Auto) (0.6-2.4) K/uL Hyde # (Auto) (0.0-0.8) K/uL Eos # (Auto) (0.0-0.7) K/uL Baso # (Auto) (0.0-0.1) K/uL Nucleated RBC % /100WBC Nucleated RBCs # K/uL INR APTT (18.6-31.3) SEC Sodium (136-145) mmol/L Potassium (3.5-5.1) mmol/L Chloride (98-107) mmol/L Carbon Dioxide (21.0-32.0) mmol/L BUN (7.0-18.0) mg/dL Creatinine (0.6-1.0) mg/dL Est Cr Clr Drug Dosing Estimated GFR (MDRD) ml/min Glucose (74-106) mg/dL Calcium (8.5-10.1) mg/dL Phosphorus (2.6-4.7) mg/dL Magnesium (1.8-2.4) mg/dL Total Bilirubin (0.2-1.0) mg/dL AST (15-37) IU/L ALT (14-63) IU/L Alkaline Phosphatase (46-116) U/L Creatine Kinase (26-308) U/L Troponin I (0.000-0.056) ng/mL Total Protein (6.4-8.2) g/dL Albumin (3.4-5.0) g/dL Globulin (2.6-4.0) g/dL Albumin/Globulin Ratio (0.9-1.6) Lipase (73-393) U/L HCG, Qual NEGATIVE (NEG) Ethyl Alcohol mg/dL Meds: Medications Discontinued Medications Generic Name Dose Route Start Last Admin Trade Name Freq PRN Reason Stop Dose Admin Haloperidol Lactate 5 mg 05/14/21 19:31 05/14/21 19:39 Haloperidol Lactate 5 Mg/Ml Sdv IM 05/14/21 19:32 5 mg ONETIME ONE Administration - Re-Assessments/Exams Free Text/Narrative Re-Assessment/Exam: 05/14/21 20:48 Patient is refusing the CAT scan states she knows was wrong with her does not want a CAT scan she had multiple test result was negative. Patient will be discharged home. Departure - Departure Time of Disposition: 20:48 Disposition: Home, Self-Care 01 Condition: Good Clinical Impression: Abdominal pain Qualifiers: Abdominal location: generalized Qualified Code(s): R10.84 - Generalized abdominal pain - Discharge Information *PRESCRIPTION DRUG MONITORING PROGRAM REVIEWED*: Not Applicable *COPY OF PRESCRIPTION DRUG MONITORING REPORT IN PATIENT ROSINA: Not Applicable Instructions: Abdominal Pain, Adult Referrals: PCP,None [Primary Care Provider] - Forms: ED Department Discharge Additional Instructions: The following information is given to patients seen in the emergency department who are being discharged to home. This information is to outline your options for follow-up care. We provide all patients seen in our emergency department with a follow-up referral. The need for follow-up, as well as the timing and circumstances, are variable depending upon the specifics of your emergency department visit. If you don't have a primary care physician on staff, we will provide you with a referral. We always advise you to contact your personal physician following an emergency department visit to inform them of the circumstance of the visit and for follow-up with them and/or the need for any referrals to a consulting specialist. The emergency department will also refer you to a specialist when appropriate. This referral assures that you have the opportunity for follow-up care with a specialist. All of these measure are taken in an effort to provide you with optimal care, which includes your follow-up. Under all circumstances we always encourage you to contact your private physician who remains a resource for coordinating your care. When calling for follow-up care, please make the office aware that this follow-up is from your recent emergency room visit. If for any reason you are refused follow-up, please contact the [facility] Emergency Department at and asked to speak to the emergency department charge nurse. Please follow up with your primary care physician. If you do not have a primary care physician, see below: [facility] [address] [place] [id number] [facility] [address] [place] [id number] Please follow-up with your primary care physician please utilize the primary clinic before using the ER for nonemergent complaints. Sepsis Event Note (ED) - Evaluation Sepsis Screening Result: No Definite Risk - Focused Exam Vital Signs: Vital Signs Temp Pulse Resp BP 05/14/21 19:20 97.1 F 94 30 H 94/67 - My Orders Last 24 Hours: My Active Orders 05/14/21 19:31 EKG Documentation Completion [RC] STAT 05/14/21 19:32 Abdomen Pelvis w Cont [CT] Stat - Assessment/Plan Last 24 Hours: My Active Orders 05/14/21 19:31 EKG Documentation Completion [RC] STAT 05/14/21 19:32 Abdomen Pelvis w Cont [CT] Stat Plan: Patient is a 56-year-old female who presents today for diffuse abdominal pain. Patient had this pain for the past and had multiple work-ups with no structural cause of the pain her family states she has some type of stress induced abdominal pain. We will provide Haldol obtain CT scan and reassess patient.
[2021-05-14 20:21] LABS: BLOOD UREA NITROGEN,BUN 21 mg/dL (7.0-18.0); CARBON DIOXIDE,CO2 31.7 mmol/L (21.0-32.0); CHLORIDE,CL 101 mmol/L (98-107); GLUCOSE RANDOM 160 mg/dL (74-106); LIPASE 76 U/L (73-393); POTASSIUM,K 4.2 mmol/L (3.5-5.1); SODIUM,NA 139 mmol/L (136-145)
[2021-05-14 23:53] VITALS: BP 92/46; PULSE 91
== END 2021-05-14 21:05 | disposition home or self-care (01) ==
LOC: MW.ED 19:11
DX: R10.84 Generalized abdominal pain (principal); I13.0 Hypertensive heart and chronic kidney disease with heart failure and stage 1 through stage 4 chronic kidney disease, or unspecified chronic kidney disease; E11.22 Type 2 diabetes mellitus with diabetic chronic kidney disease; N18.9 Chronic kidney disease, unspecified; I50.9 Heart failure, unspecified; E11.9 Type 2 diabetes mellitus without complications; J44.9 Chronic obstructive pulmonary disease, unspecified; Z88.2 Allergy status to sulfonamides; Z91.040 Latex allergy status; Z91.048 Other nonmedicinal substance allergy status
CPT/HCPCS: 36415; 80053; 80307; 82550; 83690; 83735; 84100; 84484; 84703; 85025; 85610; 85730; 93005; 96372; 99284; J1630; 93010; 99283

== ENCOUNTER 2021-05-30 20:45 | Emergency (ER) | payer MEDICARE, MEDICAID ==
[2021-05-30 22:08] VITALS: BP 160/100; PULSE 84
--- NOTE | 2021-05-30 22:10 | EDM.PDOC ---
ED HPI GENERAL MEDICAL PROBLEM - General Chief Complaint: Cardiovascular Problem Stated Complaint: HIGH BLOOD PRESSURE Time Seen by Provider: 05/30/21 20:58 - History of Present Illness INITIAL COMMENTS - FREE TEXT/NARRATIVE: CHIEF COMPLAINT(S): High blood pressure HISTORY OF PRESENT ILLNESS: This is a 56-year-old woman with a past medical history of diabetes mellitus, CAD, anxiety, panic attack/disorder, hypertension who comes to the emergency department with a chief complaint of high blood pressure. The patient states that she has a home health care nurse who comes to check her vitals and make sure she is doing okay. She states that today the nurse came in and her blood pressure was elevated at 180/123 and they told her to come to the emergency department. 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 She denies any headache, blurry vision, loss of vision, numbness, tingling or weakness. She denies any chest pain or shortness of breath. She states that she has had nausea and vomiting but this has not changed as she has had this for a couple of years. She denies any hematemesis, bilious emesis, melena or hematochezia. She states that she has had every test in the book for this nausea and vomiting and all of it was negative. She states that she is currently asymptomatic and has no complaints other than being sent in for high b lood pressure. REVIEW OF SYSTEMS: Constitutional: Denies fever, chills. Eyes: Denies eye pain Ears, Nose, Mouth, & Throat: Denies earache Cardiovascular: Denies chest pain Respiratory: Denies shortness of breath Gastrointestinal: Denies Nausea, vomiting, diarrhea, hematochezia. Genitourinary: Denies hematuria Skin:Denies a rash MSK: Denies joint pain Neurological: Denies blurred vision, numbness, tingling, weakness Psychiatric: Denies depression PAST MEDICAL HISTORY: As per history of present illness and as reviewed below otherwise noncontributory. SURGICAL HISTORY: As per history of present illness and as reviewed below otherwise noncontributory. SOCIAL HISTORY: As per history of present illness and as reviewed below otherwise noncontributory. FAMILY HISTORY: As per history of present illness and as reviewed below otherwise noncontributory. EXAMINATION OF ORGAN SYSTEMS/BODY AREAS: Constitutional: Blood pressure was 154/99, heart rate 82, respiratory rate 16 with an oxygen saturation of 97% on room air. Temperature 36.6 General: Overall well-appearing woman who is in no acute distress Psychiatric: Appropriate mood and affect. Eyes: No scleral icterus or conjunctival erythema pupils are equal round and reactive to light. Extraocular movements intact. No vertical horizontal nystagmus. ENMT: Moist mucous membranes. No pharyngeal erythema Cardiovascular: Regular, rate, and rhythm. No gallops, murmurs, or rubs. Bilateral upper extremity pulses symmetric and intact. No peripheral edema. No JVD. Respiratory: Lungs clear to auscultation bilaterally. No wheezes, rales, or rhonchi. Gastrointestinal: Soft, non-tender, non-distended. Normoactive bowel sounds Genitourinary: No suprapubic tenderness Musculoskeletal: Normal range of motion. Skin: No lesions or abrasions. Neurological: Alert, GCS 15 strength and sensation grossly intact in upper and lower extremities bilaterally MEDICAL DECISION MAKING AND COURSE IN THE ED WITH INTERPRETATION/REVIEW OF DIAGNOSTIC STUDIES: This is a 56-year-old and with a past medical history of hypertension and chronic nausea and vomiting, panic disorder/anxiety who comes to the emergency department with concern for high blood pressure. The patient reported a blood pressure of 180/123 at her house. Currently her blood pressure is mildly elevated however is around the patient's baseline. Given that she is currently asymptomatic I do not believe anything needs to be done about this. Will observe the patient in the emergency department for any symptoms and to monitor her blood pressure. I did obtain a screening EKG which did not reveal any acute signs of ischemia. The patient was amenable to this plan. Patient was observed in the emergency department her blood pressure continued to remain stable. I did discuss with her that she should follow-up with her primary care physician for further management of her blood pressure. She was able to tolerate p.o. without any difficulty and was amenable to discharge at this time. DISPOSITION: The patient was discharged home in stable condition. The patient will follow up with primary care physician in 1 to 3 days CONDITION: Fair PROCEDURES: None FINAL IMPRESSION(S)/DIAGNOSES: 1. Asymptomatic hypertension Varun Ferreira M.D. - Related Data Allergies Allergy/AdvReac Type Severity Reaction Status Date / Time latex Allergy Mild Rash Verified 05/30/21 20:53 Sulfa (Sulfonamide Allergy Unknown Airway Verified 05/30/21 20:53 Antibiotics) Tightness sulfur dioxide Allergy Airway Verified 05/30/21 20:53 Tightness Home Meds: Home Meds Enalapril [Vasotec] 10 mg PO DAILY 11/07/19 [History] Furosemide [Lasix] 60 mg PO BID 11/07/19 [History] Potassium Chloride 20 meq PO BID 11/07/19 [History] Acetaminophen [8 Hour Pain Relief] 650 mg PO QID PRN 02/23/21 [History] Bisacodyl [Gentle Laxative] 1 supp RC DAILY PRN 02/23/21 [History] Carbamide Peroxide [Debrox 6.5% Otic Soln] 3 drop EARBOTH Q12H 02/23/21 [History] Epoetin Negro [Procrit] 5,000 unit SUBCUT ASDIRECTED 02/23/21 [History] Ergocalciferol (Vitamin D2) [Vitamin D2] 50,000 unit PO DAILY 02/23/21 [History] Pantoprazole [ProTONIX] 40 mg PO DAILY 02/23/21 [History] amLODIPine [Norvasc] 10 mg PO DAILY 02/23/21 [History] cloNIDine [Catapres] 0.3 mg PO DAILY 02/23/21 [History] metOLazone [Metolazone] 5 mg PO ASDIRECTED 02/23/21 [History] Past Medical History - Past Health History Medical/Surgical History: Denies Medical/Surgical History HEENT History: Reports: Other (See Below) Other HEENT History: has top denture Cardiovascular History: Reports: Heart Failure, Hypertension, Pulmonary Hypertension, Other (See Below) Other Cardiovascular History: murmur as an infant, hypotesnion, "issues with heart racing" Respiratory History: Reports: COPD, PE, Other (See Below) Other Respiratory History: Carbon Monoxide posioning Gastrointestinal History: Reports: GERD, Helicobacter Pylori, Other (See Below) Other Gastrointestinal History: gastroparesis Genitourinary History: Reports: Acute Renal Failure, Chronic Renal Insuffiency 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: Musculoskeletal History: Reports: Back Pain, Chronic Neurological History: Reports: Migraines, Other (See Below) Other Neuro History: "Silent Migraines" Psychiatric History: Reports: Anxiety, Depression, Other (See Below) Other Psychiatric History: stress induced anxiety Endocrine/Metabolic History: Reports: Diabetes, Type II Other Endocrine/Metabolic History: Pt questions this Dx Hematologic History: Reports: Other (See Below) Other Hematologic History: States "bacterium in blood" Immunologic History: Reports: None Other Immunologic History: states was in the hospital in [place] last summer with blood infection "not sure what it was called" Oncologic (Cancer) History: Reports: Ovarian Dermatologic History: Reports: Eczema - Infectious Disease History Infectious Disease History: Reports: Chicken Pox, MRSA, Novel Coronavirus - Past Surgical History Head Surgeries/Procedures: Reports: None HEENT Surgical History: Reports: None Cardiovascular Surgical History: Reports: None Respiratory Surgical History: Reports: None GI Surgical History: Reports: EGD Female Surgical History: Reports: None Endocrine Surgical History: Reports: None Neurological Surgical History: Reports: None Musculoskeletal Surgical History: Reports: Carpal Tunnel Oncologic Surgical History: Reports: None Other Oncologic Surgeries/Procedures: surgery for her ovarian cancer- chemo after when she was 24 yrs old Dermatological Surgical History: Reports: None - History Comment History Comment: Son says she's been evaluated for these sxs in past but doesn't recall where w/u was done (including CT of abd). No EGD ever done. The h pylori was dx'd by serologies. Social & Family History - Family History Family Medical History: No Pertinent Family History Cardiac: Reports: Hypertension Other Cardiac Family History: Mother, Aunt Respiratory: Reports: COPD Other Respiratory Family Hisory: Uncle GI: Reports: None Neurological: Reports: Other (See Below) Other Neurological Family History: Stroke-Grandmother Endocrine/Metabolic: Reports: Diabetes, type II - Tobacco Use Tobacco Use Status *Q: Never Tobacco User - Caffeine Use Caffeine Use: Reports: None - Recreational Drug Use Recreational Drug Use: No - Living Situation & Occupation Living situation: Reports: Single Occupation: Unemployed ED ROS GENERAL - Review of Systems Review Of Systems: See Below ED EXAM, GENERAL - Physical Exam Exam: See Below Course - Vital Signs Last Recorded V/S: Last Vital Signs Temp 36.6 C 05/30/21 20:54 Pulse 84 05/30/21 22:08 Resp 20 05/30/21 22:08 BP 160/100 H 05/30/21 22:08 Pulse Ox 97 05/30/21 22:08 - Orders/Labs/Meds Orders: Active Orders 24 hr Category Date Time Status EKG 12 Lead [EKG Documentation Completion] [RC] STAT Care 05/30/21 20:50 Active Departure - Departure Time of Disposition: 22:09 Disposition: Home, Self-Care 01 Condition: Fair Clinical Impression: Hypertension Instructions: Hypertension, Adult, [id number] Referrals: PCP,None [Primary Care Provider] - Forms: ED Department Discharge Additional Instructions: You were evaluated today on an emergent basis. At this time your blood pressure is improved from being at home. Given that it has improved and you are asymptomatic I do not believe any work-up is necessary. If you have any symptoms such as chest pain, shortness of breath, dizziness, headache, passing out, fever I would like you to return to the emergency department. Otherwise please follow-up with your primary care physician to further discuss blood pressure management. [facility] [address] [place] [address] [place] [address] The patient is informed of any results of their evaluation and diagnostic workup and all questions are answered. They are given discharge instructions and return precautions. The patient is stable for discharge. The patient states they understand and agree with the plan and that they will return if their symptoms get worse or if they have any new concerns. The following information is given to patients seen in the emergency department who are being discharged to home. This information is to outline your options for follow-up care. We provide all patients seen in our emergency department with a follow-up referral. The need for follow-up, as well as the timing and circumstances, are variable depending upon the specifics of your emergency department visit. If you don't have a primary care physician on staff, we will provide you with a referral. We always advise you to contact your personal physician following an emergency department visit to inform them of the circumstance of the visit and for follow-up with them and/or the need for any referrals to a consulting specialist. The emergency department will also refer you to a specialist when appropriate. This referral assures that you have the opportunity for follow-up care with a specialist. All of these measure are taken in an effort to provide you with optimal care, which includes your follow-up. Under all circumstances we always encourage you to contact your private physician who remains a resource for coordinating your care. When calling for follow-up care, please make the office aware that this follow-up is from your recent emergency room visit. If for any reason you are refused follow-up, please contact the [facility] Emergency Department at and asked to speak to the emergency department charge nurse. Sepsis Event Note (ED) - Evaluation Sepsis Screening Result: No Definite Risk - My Orders Last 24 Hours: My Active Orders 05/30/21 20:50 EKG 12 Lead [EKG Documentation Completion] [RC] STAT - Assessment/Plan Last 24 Hours: My Active Orders 05/30/21 20:50 EKG 12 Lead [EKG Documentation Completion] [RC] STAT
--- NOTE | 2021-05-30 23:06 | PCM.EKG ---
#1 Interpretation EKG Date: 05/30/21 Time: 20:50 Rhythm: NSR Rate (Beats/Min): 82 [place]: Normal P-Wave: Present QRS: Normal ST-T: Normal QT: Normal Comparison: No Change (05/14/21) EKG Interpretation Comments: Sinus RHythm
== END 2021-05-30 22:12 | disposition home or self-care (01) ==
LOC: MW.ED 20:45
DX: I13.0 Hypertensive heart and chronic kidney disease with heart failure and stage 1 through stage 4 chronic kidney disease, or unspecified chronic kidney disease (principal); E11.22 Type 2 diabetes mellitus with diabetic chronic kidney disease; N18.9 Chronic kidney disease, unspecified; I50.9 Heart failure, unspecified; J44.9 Chronic obstructive pulmonary disease, unspecified; K21.9 Gastro-esophageal reflux disease without esophagitis; Z91.040 Latex allergy status; Z88.2 Allergy status to sulfonamides; Z91.048 Other nonmedicinal substance allergy status
CPT/HCPCS: 93005; 93010; 99283; 99283-25

== ENCOUNTER 2021-06-06 18:14 | Emergency (ER) | payer MEDICARE, MEDICAID ==
[2021-06-06] MEDS ORDERED: LORazepam 2 MG/ML SDV IVPUSH ONE (19:13)
[2021-06-06] MEDS ORDERED: Ondansetron 4 MG/2 ML SDV IVPUSH ONE (19:13)
[2021-06-06] MEDS ORDERED: Sodium Chloride 0.9% 2.5 ML Syringe FLUSH PRN (19:13)
[2021-06-06] MEDS ORDERED: Sodium Chloride 0.9% 10 ML Syringe FLUSH PRN (19:13)
[2021-06-06] MEDS ORDERED: HYDROmorphone 1 MG/ML Syringe IVPUSH ONE (19:13)
[2021-06-06] MEDS ORDERED: Sodium Chloride 0.9% 1,000 ML IV ONE (19:15)
--- NOTE | 2021-06-06 19:37 | EDM.PDOC ---
ED HPI GENERAL MEDICAL PROBLEM - General Chief Complaint: General Stated Complaint: HIGH BLOOD PRESSURE Time Seen by Provider: 06/06/21 20:17 - History of Present Illness INITIAL COMMENTS - FREE TEXT/NARRATIVE: History of present illness: []The patient reports severe abdominal pain that on first question "Just began." When asked if she had it before she arrived today at approximately 20:50 she said it began yesterday. In reality, she has been bothered by the pain in her epigastrium since she had COVID in December of this year. She has had GB and other workup. She and her son are apparently trying to give me a good history but medically naive. She says she has "50%" of her heart but has had no surgery but means she has "only my right vside working." She says the nausea she experiences now began yesterday and the pain in her anterior abdomen got worse this evening, now radiating up into her chest. While she has been evaluated in the past, she says the doctors and nurses have said her pain is from "anxiety." She has not had any recommendation for surgery. She has vomited several times today, has no alteration in urine or bowel function. She has not vomited blood or dark material and has no dark stools. She is lightheaded today. Review of systems: As per history of present illness and below otherwise all systems reviewed and negative. Past medical history: As per history of present illness and as reviewed below otherwise noncontributory. Surgical history: As per history of present illness and as reviewed below otherwise noncontributory. Social history: No reported history of drug or alcohol abuse. Family history: As per history of present illness and as reviewed below otherwise noncontributory. Physical exam: Constitutional - extremely thin and in acute distress HEENT - normocephalic, no evidence of trauma - external nose and mouth normal - no mass in neck and no JVD - mucosae moist EYES - full EOM, PERRL, no icterus - no evidence of inflammation, injection, or drainage Respiratory - no respiratory distress, equal bilateral expansion, lungs clear to auscultation and no abnormal lung sounds Cardiovascular - Regular Rhythm with S1 and S2 appreciated and no murmur, gallop or rub. GI - abdomen soft without distension or organomegaly - normal bowel sounds - no guard or rebound. Tender diffusely. Musculoskeletal no gross deformity of long bones or joints - no tenderness, swelling or edema Neurologic - Alert and oriented times four - CN II-XII grossly intact - motor sensory and coordination symmetrically normal Psychiatric - appropriate mood and affect with normal thought content Hematologic - No petechiae or purpura - mucosa appropriate color and sclera not pale - normal nail bed color and refill Integument - no rash or evidence of trauma - normal turgor Diagnostics: [] Therapeutics: abdominal Pain Score (Numeric/FACES): 8 - Related Data Allergies Allergy/AdvReac Type Severity Reaction Status Date / Time latex Allergy Mild Rash Verified 06/06/21 19:05 Sulfa (Sulfonamide Allergy Unknown Airway Verified 06/06/21 19:05 Antibiotics) Tightness sulfur dioxide Allergy Airway Verified 06/06/21 19:05 Tightness Home Meds: Home Meds Enalapril [Vasotec] 10 mg PO DAILY 11/07/19 [History] Furosemide [Lasix] 60 mg PO BID 11/07/19 [History] Potassium Chloride 20 meq PO BID 11/07/19 [History] Acetaminophen [8 Hour Pain Relief] 650 mg PO QID PRN 02/23/21 [History] Bisacodyl [Gentle Laxative] 1 supp RC DAILY PRN 02/23/21 [History] Carbamide Peroxide [Debrox 6.5% Otic Soln] 3 drop EARBOTH Q12H 02/23/21 [History] Epoetin Negro [Procrit] 5,000 unit SUBCUT ASDIRECTED 02/23/21 [History] Ergocalciferol (Vitamin D2) [Vitamin D2] 50,000 unit PO DAILY 02/23/21 [History] Pantoprazole [ProTONIX] 40 mg PO DAILY 02/23/21 [History] amLODIPine [Norvasc] 10 mg PO DAILY 02/23/21 [History] cloNIDine [Catapres] 0.3 mg PO DAILY 02/23/21 [History] metOLazone [Metolazone] 5 mg PO ASDIRECTED 02/23/21 [History] LORazepam [Ativan] 0.5 mg PO BEDTIME PRN #10 tab 06/06/21 [Rx] Past Medical History - Past Health History Medical/Surgical History: Denies Medical/Surgical History HEENT History: Reports: Other (See Below) Other HEENT History: has top denture Cardiovascular History: Reports: Heart Failure, Hypertension, Pulmonary Hypertension, Other (See Below) Other Cardiovascular History: murmur as an , hypotesnion, "issues with heart racing" Respiratory History: Reports: COPD, PE, Other (See Below) Other Respiratory History: Carbon Monoxide posioning Gastrointestinal History: Reports: GERD, Helicobacter Pylori, Other (See Below) Other Gastrointestinal History: gastroparesis Genitourinary History: Reports: Acute Renal Failure, Chronic Renal Insuffiency 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: Musculoskeletal History: Reports: Back Pain, Chronic Neurological History: Reports: Migraines, Other (See Below) Other Neuro History: "Silent Migraines" Psychiatric History: Reports: Anxiety, Depression, Other (See Below) Other Psychiatric History: stress induced anxiety Endocrine/Metabolic History: Reports: Diabetes, Type II Other Endocrine/Metabolic History: Pt questions this Dx Hematologic History: Reports: Other (See Below) Other Hematologic History: States "bacterium in blood" Immunologic History: Reports: None Other Immunologic History: states was in the hospital in [place] last summer with blood infection "not sure what it was called" Oncologic (Cancer) History: Reports: Ovarian Dermatologic History: Reports: Eczema - Infectious Disease History Infectious Disease History: Reports: Chicken Pox, MRSA, Novel Coronavirus - Past Surgical History Head Surgeries/Procedures: Reports: None HEENT Surgical History: Reports: None Cardiovascular Surgical History: Reports: None Respiratory Surgical History: Reports: None GI Surgical History: Reports: EGD Female Surgical History: Reports: None Endocrine Surgical History: Reports: None Neurological Surgical History: Reports: None Musculoskeletal Surgical History: Reports: Carpal Tunnel Oncologic Surgical History: Reports: None Other Oncologic Surgeries/Procedures: surgery for her ovarian cancer- chemo after when she was 24 yrs old Dermatological Surgical History: Reports: None - History Comment History Comment: Son says she's been evaluated for these sxs in past but doesn't recall where w/u was done (including CT of abd). No EGD ever done. The h pylori was dx'd by serologies. Social & Family History - Family History Family Medical History: No Pertinent Family History Cardiac: Reports: Hypertension Other Cardiac Family History: Mother, Aunt Respiratory: Reports: COPD Other Respiratory Family Hisory: Uncle GI: Reports: None Neurological: Reports: Other (See Below) Other Neurological Family History: Stroke-Grandmother Endocrine/Metabolic: Reports: Diabetes, type II - Tobacco Use Tobacco Use Status *Q: Current Every Day Tobacco User Years of Tobacco use: 40 Packs/Tins Daily: 1 - Caffeine Use Caffeine Use: Reports: None - Recreational Drug Use Recreational Drug Use: No - Living Situation & Occupation Living situation: Reports: Single Occupation: Unemployed ED ROS GENERAL - Review of Systems Review Of Systems: Comprehensive ROS is negative, except as noted in HPI. ED EXAM, GENERAL - Physical Exam Exam: See Below #1 Interpretation EKG Interpretation Comments: EKG done at 1953 hrs. sinus rhythm heart rate of 84 and axis 48. NE interval 132. Normal left atrial and enlargement. Borderline prolonged QT QT duration 498. Impression no obvious injury Course - Vital Signs Text/Narrative:: 2007 p.m. chest x-ray shows inferior jugular line in proper place and day clearing of the left basilar effusion and possible infiltrate from the prior 2034 hrs. the patient is calm alert and in no distress. Her pain is better. She reports that I had seen her when she had a tib-fib fracture but I did recognize her. She had anasarca on her last visit and with dialysis her anasarca has dissipated and she is becoming a smaller person. She also feels better since dialysis started. She has an access in the right chest and will presumably have a left forearm access site initiated in the next week or 2. Last Recorded V/S: Last Vital Signs Temp 36.1 C 06/06/21 18:46 Pulse 81 06/06/21 20:25 Resp 24 H 06/06/21 20:25 BP 155/88 H 06/06/21 20:25 Pulse Ox 97 06/06/21 20:25 - Orders/Labs/Meds Orders: Active Orders 24 hr Category Date Time Status EKG Documentation Completion [RC] AM Care 06/06/21 19:13 Active UA W/CRISSY RFLX IF INDICATED [URIN] Stat Lab 06/06/21 19:13 Stop Req Sodium Chloride 0.9% [Saline Flush] Med 06/06/21 19:13 Active 10 ml FLUSH ASDIRECTED PRN Sodium Chloride 0.9% [Saline Flush] Med 06/06/21 19:13 Active 2.5 ml FLUSH ASDIRECTED PRN Saline Lock Insert [OM.PC] Stat Oth 06/06/21 19:13 Ordered Medication Orders Sodium Chloride (Sodium Chloride 0.9% 10 Ml Syringe) 10 ml FLUSH ASDIRECTED PRN PRN Reason: Keep Vein Open Last Admin: 06/06/21 19:44 Dose: 10 ml Documented by: LAMBERTO Sodium Chloride (Sodium Chloride 0.9% 2.5 Ml Syringe) 2.5 ml FLUSH ASDIRECTED PRN PRN Reason: Keep Vein Open Last Admin: 06/06/21 19:43 Dose: 2.5 ml Documented by: LAMBERTO Labs: Laboratory Tests 06/06/21 06/06/21 Range/Units 19:19 19:19 WBC 7.09 (4.0-11.0) K/uL RBC 3.60 L (4.30-5.90) M/uL Hgb 10.8 L (12.0-16.0) g/dL Hct 33.5 L (36.0-46.0) % MCV 93.1 (80.0-98.0) fL MCH 30.0 (27.0-32.0) pg MCHC 32.2 (31.0-37.0) g/dL RDW Std Deviation 49.5 (28.0-62.0) fl RDW Coeff of [place] 15 (11.0-15.0) % Plt Count 126 L (150-400) K/uL MPV 12.80 H (7.40-12.00) fL Neut % (Auto) 80.2 H (48.0-80.0) % Lymph % (Auto) 13.7 L (16.0-40.0) % [place] % (Auto) 4.7 (0.0-15.0) % Eos % (Auto) 1.1 (0.0-7.0) % Baso % (Auto) 0.3 (0.0-1.5) % Neut # (Auto) 5.7 (1.4-5.7) K/uL Lymph # (Auto) 1.0 (0.6-2.4) K/uL [place] # (Auto) 0.3 (0.0-0.8) K/uL Eos # (Auto) 0.1 (0.0-0.7) K/uL Baso # (Auto) 0.0 (0.0-0.1) K/uL Nucleated RBC % 0.0 /100WBC Nucleated RBCs # 0 K/uL Sodium 140 (136-145) mmol/L Potassium 4.0 (3.5-5.1) mmol/L Chloride 102 (98-107) mmol/L Carbon Dioxide 28.8 (21.0-32.0) mmol/L BUN 34 H (7.0-18.0) mg/dL Creatinine 3.3 H (0.6-1.0) mg/dL Est Cr Clr Drug Dosing TNP Estimated GFR (MDRD) 14.6 ml/min Glucose 131 H (74-106) mg/dL Calcium 7.8 L (8.5-10.1) mg/dL Total Bilirubin 0.4 (0.2-1.0) mg/dL AST 27 (15-37) IU/L ALT 20 (14-63) IU/L Alkaline Phosphatase 187 H (46-116) U/L Total Protein 6.7 (6.4-8.2) g/dL Albumin 2.7 L (3.4-5.0) g/dL Globulin 4.0 (2.6-4.0) g/dL Albumin/Globulin Ratio 0.7 L (0.9-1.6) Lipase 80 (73-393) U/L Ethyl Alcohol <3 mg/dL Meds: Medications Generic Name Dose Route Start Last Admin Trade Name Matty PRN Reason Stop Dose Admin Sodium Chloride 10 ml 06/06/21 19:13 06/06/21 19:44 Sodium Chloride 0.9% 10 Ml Syringe FLUSH 10 ml ASDIRECTED PRN Administration Keep Vein Open Sodium Chloride 2.5 ml 06/06/21 19:13 06/06/21 19:43 Sodium Chloride 0.9% 2.5 Ml Syringe FLUSH 2.5 ml ASDIRECTED PRN Administration Keep Vein Open Discontinued Medications Generic Name Dose Route Start Last Admin Trade Name Freq PRN Reason Stop Dose Admin Hydromorphone HCl 1 mg 06/06/21 19:13 06/06/21 19:42 Hydromorphone 1 Mg/Ml Syringe IVPUSH 06/06/21 19:14 1 mg ONETIME ONE Administration Sodium Chloride 1,000 mls @ 1,000 mls/hr 06/06/21 19:15 06/06/21 19:42 Normal Saline IV 06/06/21 20:14 1,000 mls/hr .Bolus ONE Administration Lorazepam 1 mg 06/06/21 19:13 06/06/21 19:43 Lorazepam 2 Mg/Ml Sdv IVPUSH 06/06/21 19:14 1 mg ONETIME ONE Administration Ondansetron HCl 4 mg 06/06/21 19:13 06/06/21 19:42 Ondansetron 4 Mg/2 Ml Sdv IVPUSH 06/06/21 19:14 4 mg ONETIME ONE Administration Departure - Departure Time of Disposition: 21:16 Disposition: Home, Self-Care 01 Condition: Good Clinical Impression: GERD (gastroesophageal reflux disease), Anxiety, Gastritis - Discharge Information Prescriptions: LORazepam [Ativan] 0.5 mg PO BEDTIME PRN #10 tab PRN Reason: Anxiety Instructions: Gastritis, Adult, [id number], Gastroesophageal Reflux Disease, Adult, [id number] Referrals: PCP,None [Primary Care Provider] - Forms: ED Department Discharge Additional Instructions: A prescription was sent for you to take at bedtime to help you rest. Your list says you take pantoprazole or Protonix. If you do not you can get this [id number] and I recommend you restart it. [facility] - Primary Care [address] [place] [id number] [address] [address] The following information is given to patients seen in the emergency department who are being discharged to home. This information is to outline your options for follow-up care. We provide all patients seen in our emergency department wi th a follow-up referral. The need for follow-up, as well as the timing and circumstances, are variable depending upon the specifics of your emergency department visit. If you don't have a primary care physician on staff, we will provide you with a referral. We always advise you to contact your personal physician following an emergency department visit to inform them of the circumstance of the visit and for follow-up with them and/or the need for any referrals to a consulting specialist. The emergency department will also refer you to a specialist when appropriate. This referral assures that you have the opportunity for follow-up care with a specialist. All of these measure are taken in an effort to provide you with optimal care, which includes your follow-up. Under all circumstances we always encourage you to contact your private physician who remains a resource for coordinating your care. When calling for follow-up care, please make the office aware that this follow-up is from your recent emergency room visit. If for any reason you are refused follow-up, please contact the [facility] Emergency Department at and asked to speak to the emergency department charge nurse. Sepsis Event Note (ED) - Evaluation Sepsis Screening Result: No Definite Risk - Focused Exam Vital Signs: Vital Signs Temp Pulse Resp BP Pulse Ox 06/06/21 20:25 81 24 H 155/88 H 97 06/06/21 18:46 36.1 C 86 18 142/104 H 96 - My Orders Last 24 Hours: My Active Orders 06/06/21 19:13 EKG Documentation Completion [RC] AM UA W/CRISSY RFLX IF INDICATED [URIN] Stat Sodium Chloride 0.9% [Saline Flush] 10 ml FLUSH ASDIRECTED PRN Sodium Chloride 0.9% [Saline Flush] 2.5 ml FLUSH ASDIRECTED PRN Saline Lock Insert [OM.PC] Stat - Assessment/Plan Last 24 Hours: My Active Orders 06/06/21 19:13 EKG Documentation Completion [RC] AM UA W/CRISSY RFLX IF INDICATED [URIN] Stat Sodium Chloride 0.9% [Saline Flush] 10 ml FLUSH ASDIRECTED PRN Sodium Chloride 0.9% [Saline Flush] 2.5 ml FLUSH ASDIRECTED PRN Saline Lock Insert [OM.PC] Stat
[2021-06-06 20:06] LABS: BLOOD UREA NITROGEN,BUN 34 mg/dL (7.0-18.0); CARBON DIOXIDE,CO2 28.8 mmol/L (21.0-32.0); CHLORIDE,CL 102 mmol/L (98-107); GLUCOSE RANDOM 131 mg/dL (74-106); LIPASE 80 U/L (73-393); SODIUM,NA 140 mmol/L (136-145)
--- NOTE | 2021-06-06 20:40 | CR ---
INDICATION: Chest pain. Nephrotic syndrome with unspecified morphologic changes, pericardial effusion. TECHNIQUE: Chest radiograph 1 view COMPARISON: 05/03/2021 FINDINGS: Cardiovascular and mediastinum: Heart and mediastinal contours are stable. Lungs and pleural spaces: Improved aeration at the left lung base and left costophrenic sulcus. No new focal lung opacity or pneumothorax. Bones and soft tissues: Right IJ catheter, tip position stable in the right atrium. IMPRESSION: 1. Decreasing pulmonary edema with significant improved aeration at the left lung base from 05/03/2021. No definite residual pleural effusions. No new focal infiltrate. Dictated by Misbah Grey MD @ 06/06/2021 8:37:[address] Misbah Grey @ Jun 06 2021 8:37PM
[2021-06-06 21:39] VITALS: BP 105/81; PULSE 79
== END 2021-06-06 21:40 | disposition home or self-care (01) ==
LOC: MW.ED 18:14
DX: K21.9 Gastro-esophageal reflux disease without esophagitis (principal); K29.70 Gastritis, unspecified, without bleeding; F41.9 Anxiety disorder, unspecified; J44.9 Chronic obstructive pulmonary disease, unspecified; I13.0 Hypertensive heart and chronic kidney disease with heart failure and stage 1 through stage 4 chronic kidney disease, or unspecified chronic kidney disease; E11.22 Type 2 diabetes mellitus with diabetic chronic kidney disease; N18.9 Chronic kidney disease, unspecified; Z86.16 Personal history of COVID-19; Z91.040 Latex allergy status; Z88.2 Allergy status to sulfonamides; Z79.899 Other long term (current) drug therapy; Z72.0 Tobacco use
CPT/HCPCS: 36415; 71045; 80053; 80307; 83690; 85025; 93005; 96374; 96375; 99284; J1170; J2060; J2405; J7030

== ENCOUNTER 2021-06-07 15:19 | Emergency (ER) | payer MEDICARE, MEDICAID ==
[2021-06-07 15:41] VITALS: BP 112/72; PULSE 82
[2021-06-07] MEDS ORDERED: Haloperidol Lactate 5 MG/ML SDV IM ONE (15:56)
[2021-06-07] MEDS ORDERED: diphenhydrAMINE 50 MG/ML SDV IVPUSH ONE (16:00)
--- NOTE | 2021-06-07 16:10 | EDM.PDOC ---
ED HPI GENERAL MEDICAL PROBLEM - General Chief Complaint: Behavioral/Psych Stated Complaint: ANXIETY Time Seen by Provider: 06/07/21 15:38 Source of Information: Reports: Patient History Limitations: Reports: No Limitations - History of Present Illness INITIAL COMMENTS - FREE TEXT/NARRATIVE: Patient is a 56-year-old female who presents today for anxiety and diffuse abdominal pain. Patient gets this pain recurrently. I seen this patient in the past for similar pain and she refuses imaging right now states she knows what the pain is and where it comes from. Patient was seen last night for similar complaints. She repeatedly states that Dilaudid is the only thing that helps out with this. She notes as part of her anxiety concerns abdominal pain he states that Ativan or other meds do not work. Currently she denies any nausea or vomiting chest pain that she regularly gets with her anxiety. States she has a lot of things going on at home that she does not want to talk about but she does deny any suicidal or homicide ideation. Treatments RN LABOR DELIVERY: Reports: Other (see below) Other Treatments RN LABOR DELIVERY: all home medication listed on EMS includind ativan bilateral upper abdomen Pain Score (Numeric/FACES): 9 - Related Data Allergies Allergy/AdvReac Type Severity Reaction Status Date / Time latex Allergy Mild Rash Verified 06/07/21 15:41 Sulfa (Sulfonamide Allergy Unknown Airway Verified 06/07/21 15:41 Antibiotics) Tightness sulfur dioxide Allergy Airway Verified 06/07/21 15:41 Tightness Home Meds: Home Meds Enalapril [Vasotec] 10 mg PO DAILY 11/07/19 [History] Furosemide [Lasix] 60 mg PO BID 11/07/19 [History] Potassium Chloride 20 meq PO BID 11/07/19 [History] Acetaminophen [8 Hour Pain Relief] 650 mg PO QID PRN 02/23/21 [History] Bisacodyl [Gentle Laxative] 1 supp RC DAILY PRN 02/23/21 [History] Carbamide Peroxide [Debrox 6.5% Otic Soln] 3 drop EARBOTH Q12H 02/23/21 [History] Epoetin Negro [Procrit] 5,000 unit SUBCUT ASDIRECTED 02/23/21 [History] Ergocalciferol (Vitamin D2) [Vitamin D2] 50,000 unit PO DAILY 02/23/21 [History] Pantoprazole [ProTONIX] 40 mg PO DAILY 02/23/21 [History] amLODIPine [Norvasc] 10 mg PO DAILY 02/23/21 [History] cloNIDine [Catapres] 0.3 mg PO DAILY 02/23/21 [History] metOLazone [Metolazone] 5 mg PO ASDIRECTED 02/23/21 [History] LORazepam [Ativan] 0.5 mg PO BEDTIME PRN #10 tab 06/06/21 [Rx] Past Medical History - Past Health History Medical/Surgical History: Denies Medical/Surgical History HEENT History: Reports: Other (See Below) Other HEENT History: has top denture Cardiovascular History: Reports: Heart Failure, Hypertension, Pulmonary Hypertension, Other (See Below) Other Cardiovascular History: murmur as an , hypotesnion, "issues with heart racing" Respiratory History: Reports: COPD, PE, Other (See Below) Other Respiratory History: Carbon Monoxide posioning Gastrointestinal History: Reports: GERD, Helicobacter Pylori, Other (See Below) Other Gastrointestinal History: gastroparesis Genitourinary History: Reports: Acute Renal Failure, Chronic Renal Insuffiency VENDOR SPECIALIST History: Reports: Musculoskeletal History: Reports: Back Pain, Chronic Neurological History: Reports: Migraines, Other (See Below) Other Neuro History: "Silent Migraines" Psychiatric History: Reports: Anxiety, Depression, Other (See Below) Other Psychiatric History: stress induced anxiety Endocrine/Metabolic History: Reports: Diabetes, Type II Other Endocrine/Metabolic History: Pt questions this Dx Hematologic History: Reports: Other (See Below) Other Hematologic History: States "bacterium in blood" Immunologic History: Reports: None Other Immunologic History: states was in the hospital in [place] last summer with blood infection "not sure what it was called" Oncologic (Cancer) History: Reports: Ovarian Dermatologic History: Reports: Eczema - Infectious Disease History Infectious Disease History: Reports: Chicken Pox, MRSA, Novel Coronavirus - Past Surgical History Head Surgeries/Procedures: Reports: None HEENT Surgical History: Reports: None Cardiovascular Surgical History: Reports: None Respiratory Surgical History: Reports: None GI Surgical History: Reports: EGD Female Surgical History: Reports: None Endocrine Surgical History: Reports: None Neurological Surgical History: Reports: None Musculoskeletal Surgical History: Reports: Carpal Tunnel Oncologic Surgical History: Reports: None Other Oncologic Surgeries/Procedures: surgery for her ovarian cancer- chemo after when she was 24 yrs old Dermatological Surgical History: Reports: None - History Comment History Comment: Son says she's been evaluated for these sxs in past but doesn't recall where w/u was done (including CT of abd). No EGD ever done. The h pylori was dx'd by serologies. Social & Family History - Family History Family Medical History: No Pertinent Family History Cardiac: Reports: Hypertension Other Cardiac Family History: Mother, Aunt Respiratory: Reports: COPD Other Respiratory Family Hisory: Uncle GI: Reports: None Neurological: Reports: Other (See Below) Other Neurological Family History: Stroke-Grandmother Endocrine/Metabolic: Reports: Diabetes, type II - Tobacco Use Tobacco Use Status *Q: Current Every Day Tobacco User Years of Tobacco use: 38 Packs/Tins Daily: 0.5 - Caffeine Use Caffeine Use: Reports: None - Recreational Drug Use Recreational Drug Use: No - Living Situation & Occupation Living situation: Reports: Single Occupation: Unemployed ED ROS GENERAL - Review of Systems Review Of Systems: See Below Constitutional: Reports: No Symptoms HEENT: Reports: No Symptoms Respiratory: Reports: No Symptoms Cardiovascular: Reports: No Symptoms Endocrine: Reports: No Symptoms GI/Abdominal: Reports: Abdominal Pain : Reports: No Symptoms Musculoskeletal: Reports: No Symptoms Skin: Reports: No Symptoms Neurological: Reports: No Symptoms Psychiatric: Reports: No Symptoms Hematologic/Lymphatic: Reports: No Symptoms Immunologic: Reports: No Symptoms ED EXAM, GENERAL - Physical Exam Exam: See Below Exam Limited By: No Limitations General Appearance: Alert, WD/WN, No Apparent Distress Respiratory/Chest: No Respiratory Distress, Lungs Clear, Normal Breath Sounds Cardiovascular: Normal Peripheral Pulses, Regular Rate, Rhythm GI/Abdominal: Normal Bowel Sounds, Soft, Non-Tender Neurological: Alert, Oriented Course - Vital Signs Last Recorded V/S: Last Vital Signs Temp 97.5 F 06/07/21 15:37 Pulse 82 06/07/21 15:37 Resp 20 06/07/21 15:37 BP 112/72 06/07/21 15:37 Pulse Ox 97 06/07/21 15:37 - Orders/Labs/Meds Meds: Medications Discontinued Medications Generic Name Dose Route Start Last Admin Trade Name Freq PRN Reason Stop Dose Admin Diphenhydramine HCl 25 mg 06/07/21 16:00 06/07/21 16:08 Diphenhydramine 50 Mg/Ml Sdv IVPUSH 06/07/21 16:01 25 mg ONETIME ONE Administration Haloperidol Lactate 5 mg 06/07/21 15:56 06/07/21 16:08 Haloperidol Lactate 5 Mg/Ml Sdv IM 06/07/21 15:57 5 mg ONETIME ONE Administration - Re-Assessments/Exams Free Text/Narrative Re-Assessment/Exam: 06/07/21 17:02 Patient was given Haldol Benadryl and symptoms have withdrawal of anxiety. Patient sister is here with her and can take her home. Patient will be discharged. Departure - Departure Time of Disposition: 17:02 Disposition: Home, Self-Care 01 Condition: Good Clinical Impression: Anxiety - Discharge Information *PRESCRIPTION DRUG MONITORING PROGRAM REVIEWED*: Not Applicable *COPY OF PRESCRIPTION DRUG MONITORING REPORT IN PATIENT ROSINA: Not Applicable Instructions: Managing Anxiety, Adult Referrals: PCP,None [Primary Care Provider] - Forms: ED Department Discharge Additional Instructions: The following information is given to patients seen in the emergency department who are being discharged to home. This information is to outline your options for follow-up care. We provide all patients seen in our emergency department with a follow-up referral. The need for follow-up, as well as the timing and circumstances, are variable depending upon the specifics of your emergency department visit. If you don't have a primary care physician on staff, we will provide you with a referral. We always advise you to contact your personal physician following an emergency department visit to inform them of the circumstance of the visit and for follow-up with them and/or the need for any referrals to a consulting specialist. The emergency department will also refer you to a specialist when appropriate. This referral assures that you have the opportunity for follow-up care with a specialist. All of these measure are taken in an effort to provide you with optimal care, which includes your follow-up. Under all circumstances we always encourage you to contact your private physician who remains a resource for coordinating your care. When calling for follow-up care, please make the office aware that this follow-up is from your recent emergency room visit. If for any reason you are refused follow-up, please contact the [facility] Emergency Department at and asked to speak to the emergency department charge nurse. Please follow up with your primary care physician. If you do not have a primary care physician, see below: [facility] [address] [place] [address] [facility] [address] [place] [address] You were seen today for this recurrent anxiety you get that because you have abdominal pain. We will give you a medication to help calm you down and get with the pain. We recommend you follow-up with your primary care physician is acute happening that you may need to be put on some long-term pain medication. If you have any other concerning signs or symptoms please return to the ED. Sepsis Event Note (ED) - Evaluation Sepsis Screening Result: No Definite Risk - Focused Exam Vital Signs: Vital Signs Temp Pulse Resp BP Pulse Ox 06/07/21 15:37 97.5 F 82 20 112/72 97 - Assessment/Plan Plan: Patient is a 56-year-old female who presents recurrently for abdominal pain brought onto by her anxiety. Patient requests Dilaudid is a solid onset of the pain. She refuses any imaging or labs. We will attempt this time to use Haldol and Benadryl to help out with her anxiety and reassess patient.
== END 2021-06-07 17:28 | disposition home or self-care (01) ==
LOC: MW.ED 15:19
DX: F41.9 Anxiety disorder, unspecified (principal); I13.0 Hypertensive heart and chronic kidney disease with heart failure and stage 1 through stage 4 chronic kidney disease, or unspecified chronic kidney disease; E11.22 Type 2 diabetes mellitus with diabetic chronic kidney disease; N18.9 Chronic kidney disease, unspecified; I50.9 Heart failure, unspecified; J44.9 Chronic obstructive pulmonary disease, unspecified; K21.9 Gastro-esophageal reflux disease without esophagitis; Z86.711 Personal history of pulmonary embolism; Z72.0 Tobacco use; Z91.040 Latex allergy status; Z88.2 Allergy status to sulfonamides; Z79.899 Other long term (current) drug therapy
CPT/HCPCS: 96372; 96374; 99283; J1200; J1630

== ENCOUNTER 2021-06-12 17:26 | Emergency (ER) | payer MEDICARE, MEDICAID ==
--- NOTE | 2021-06-12 17:49 | PCM.EKG ---
#1 Interpretation EKG Date: 06/12/21 Time: 17:43 Rhythm: NSR Rate (Beats/Min): 86 [place]: Normal P-Wave: Present QRS: Normal ST-T: Normal QT: Normal Comparison: No Change (06/06/21) EKG Interpretation Comments: Sinus Rhythm
[2021-06-12] MEDS ORDERED: Ondansetron 4 MG Tab.DIS PO ONE ×2 (18:28→18:29)
[2021-06-12] MEDS ORDERED: LORazepam 0.5 MG Tab PO STA (18:30)
[2021-06-12 18:42] VITALS: BP 204/121; PULSE 87
--- NOTE | 2021-06-12 18:55 | EDM.PDOC ---
ED HPI GENERAL MEDICAL PROBLEM - General Chief Complaint: General Stated Complaint: ANIXETY Time Seen by Provider: 06/12/21 18:15 Source of Information: Reports: Patient History Limitations: Reports: No Limitations - History of Present Illness INITIAL COMMENTS - FREE TEXT/NARRATIVE: HISTORY AND PHYSICAL: History of present illness: Patient is a 56-year-old female with a history of congestive heart failure, hypertension, pulmonary hypertension, COPD, GERD, acute renal failure on dialysis, type 2 diabetes, sepsis, ovarian cancer who presents emergency room today with concern of anxiety exacerbation causing upper abdominal pain and vomiting starting this morning. Patient states she has a history of severe anxiety and does have Ativan at home. Patient states that she has not taken her Ativan for her anxiety as she has been so anxious she has been vomiting and states that she has not tried to keep Ativan down. Patient states she also has upper abdominal pain which is typical of her anxiety is states that she has "had a thorough work-up "of this in the past and states that she does not want any lab work or imaging today and would just like something to help with her anxiety to calm down. Patient denies any change of her symptoms per her usual of anxiety exacerbation. Patient denies any other symptoms or concerns. Patient states that she has dialysis Fridays and completed her dialysis today. Patient denies fever, chills, chest pain, shortness of breath, or cough. Denies headache, neck stiff ness, change in vision, syncope, or near syncope. Denies diarrhea, constipation, or dysuria. Has not noted any blood in urine or stool. Patient has been eating and drinking appropriately. Review of systems: As per history of present illness and below otherwise all systems reviewed and negative. Past medical history: As per history of present illness and as reviewed below otherwise noncontributory. Surgical history: As per history of present illness and as reviewed below otherwise noncontributory. Social history: See social history for further information Family history: As per history of present illness and as reviewed below otherwise noncontributory. Physical exam: General: Patient is alert, oriented, and in no acute distress. Patient laying on exam table; patient going from laying to sitting appearing uncomfortable holding upper abdomen. Patient hypertensive, otherwise vitally stable and reviewed. HEENT: Atraumatic, normocephalic, pupils equal and reactive bilaterally, negative for conjunctival pallor or scleral icterus, mucous membranes moist, TMs normal bilaterally, throat clear, neck supple, nontender, trachea midline. No drooling or trismus noted. No meningeal signs. No hot potato voice noted. Lungs: Clear to auscultation, breath sounds equal bilaterally, chest nontender. Heart: S1S2, regular rate and rhythm without overt murmur Abdomen: Soft, nondistended, moderate upper abdominal tenderness without gua rding, negative rebound / walkre. Negative for masses or hepatosplenomegaly. Negative for costovertebral tenderness. Pelvis: Stable nontender. Genitourinary: Deferred. Rectal: Deferred. Skin: Intact, warm, dry. No lesions or rashes noted. Extremities: Atraumatic, negative for cords or calf pain. Neurovascular unremarkable. Neuro: Awake, alert, oriented. Cranial nerves II through XII unremarkable. Cerebellum unremarkable. Motor and sensory unremarkable throughout. Exam nonfocal. Notes: Patient is a 56-year-old female with an extensive medical history including congestive heart failure, hypertension, pulmonary hypertension, COPD, GERD, acute renal failure on dialysis, type 2 diabetes, sepsis, ovarian cancer who presents emergency room today secondary to anxiety exacerbation causing upper ab dominal pain and nausea and vomiting. Upon arrival to the ED, patient is noted to be hypertensive 200s over 120s but otherwise vitally stable. Patient does have moderate right upper quadrant abdominal pain on exam. I did recommend obtaining lab work as well as scan of patient's abdomen and pelvis as well as lab work to assess patient's hypertension but she declines this time requesting Ativan and discharged home stating that this is typical of her usual anxiety exacerbations. Patient does have Ativan available to her but has not taken this today. Will provide patient her Ativan dose and Zofran. Patient has received Zofran and Ativan with no active vomiting in the ED today. Strict return precautions thoroughly discussed with patient. Discussed with patient that if she decides that she would like to receive further diagnostics, to return to the ED as discussed. Discussed importance for follow-up with a primary care provider. Voices understanding and is agreeable to plan of care. Denies any further questions or concerns at this time. Diagnostics: Patient declines lab work and abd/pelvic CT Therapeutics: Zofran, Ativan Prescription: None Impression: Anxiety Upper abdominal pain, unspecified Hypertension Plan: 1. Continue to take your At Home medications for your anxiety and your blood pressure as discussed. 2. Follow-up with a primary care provider as discussed. Return to the ED as needed and as discussed. Definitive disposition and diagnosis as appropriate pending reevaluation and review of above. - Related Data Allergies Allergy/AdvReac Type Severity Reaction Status Date / Time latex Allergy Mild Rash Verified 06/07/21 15:41 Sulfa (Sulfonamide Allergy Unknown Airway Verified 06/07/21 15:41 Antibiotics) Tightness sulfur dioxide Allergy Airway Verified 06/07/21 15:41 Tightness Home Meds: Home Meds Enalapril [Vasotec] 10 mg PO DAILY 11/07/19 [History] Furosemide [Lasix] 60 mg PO BID 11/07/19 [History] Potassium Chloride 20 meq PO BID 11/07/19 [History] Acetaminophen [8 Hour Pain Relief] 650 mg PO QID PRN 02/23/21 [History] Bisacodyl [Gentle Laxative] 1 supp RC DAILY PRN 02/23/21 [History] Carbamide Peroxide [Debrox 6.5% Otic Soln] 3 drop EARBOTH Q12H 02/23/21 [History] Epoetin Negro [Procrit] 5,000 unit SUBCUT ASDIRECTED 02/23/21 [History] Ergocalciferol (Vitamin D2) [Vitamin D2] 50,000 unit PO DAILY 02/23/21 [History] Pantoprazole [ProTONIX] 40 mg PO DAILY 02/23/21 [History] amLODIPine [Norvasc] 10 mg PO DAILY 02/23/21 [History] cloNIDine [Catapres] 0.3 mg PO DAILY 02/23/21 [History] metOLazone [Metolazone] 5 mg PO ASDIRECTED 02/23/21 [History] LORazepam [Ativan] 0.5 mg PO BEDTIME PRN #10 tab 06/06/21 [Rx] Past Medical History - Past Health History Medical/Surgical History: Denies Medical/Surgical History HEENT History: Reports: Other (See Below) Other HEENT History: has top denture Cardiovascular History: Reports: Heart Failure, Hypertension, Pulmonary Hypertension, Other (See Below) Other Cardiovascular History: murmur as an infant, hypotesnion, "issues with heart racing" Respiratory History: Reports: COPD, PE, Other (See Below) Other Respiratory History: Carbon Monoxide posioning Gastrointestinal History: Reports: GERD, Helicobacter Pylori, Other (See Below) Other Gastrointestinal History: gastroparesis Genitourinary History: Reports: Acute Renal Failure, Chronic Renal Insuffiency 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: Musculoskeletal History: Reports: Back Pain, Chronic Neurological History: Reports: Migraines, Other (See Below) Other Neuro History: "Silent Migraines" Psychiatric History: Reports: Anxiety, Depression, Other (See Below) Other Psychiatric History: stress induced anxiety Endocrine/Metabolic History: Reports: Diabetes, Type II Other Endocrine/Metabolic History: Pt questions this Dx Hematologic History: Reports: Other (See Below) Other Hematologic History: States "bacterium in blood" Immunologic History: Reports: None Other Immunologic History: states was in the hospital in [place] last summer with blood infection "not sure what it was called" Oncologic (Cancer) History: Reports: Ovarian Dermatologic History: Reports: Eczema - Infectious Disease History Infectious Disease History: Reports: Chicken Pox, MRSA, Novel Coronavirus - Past Surgical History Head Surgeries/Procedures: Reports: None HEENT Surgical History: Reports: None Cardiovascular Surgical History: Reports: None Respiratory Surgical History: Reports: None GI Surgical History: Reports: EGD Female Surgical History: Reports: None Endocrine Surgical History: Reports: None Neurological Surgical History: Reports: None Musculoskeletal Surgical History: Reports: Carpal Tunnel Oncologic Surgical History: Reports: None Other Oncologic Surgeries/Procedures: surgery for her ovarian cancer- chemo after when she was 24 yrs old Dermatological Surgical History: Reports: None - History Comment History Comment: Son says she's been evaluated for these sxs in past but doesn't recall where w/u was done (including CT of abd). No EGD ever done. The h pylori was dx'd by serologies. Social & Family History - Family History Family Medical History: No Pertinent Family History Cardiac: Reports: Hypertension Other Cardiac Family History: Mother, Aunt Respiratory: Reports: COPD Other Respiratory Family Hisory: Uncle GI: Reports: None Neurological: Reports: Other (See Below) Other Neurological Family History: Stroke-Grandmother Endocrine/Metabolic: Reports: Diabetes, type II - Tobacco Use Tobacco Use Status *Q: Unknown Ever Used Tobacco - Caffeine Use Caffeine Use: Reports: None - Living Situation & Occupation Living situation: Reports: Single Occupation: Unemployed ED ROS GENERAL - Review of Systems Review Of Systems: Comprehensive ROS is negative, except as noted in HPI. ED EXAM, GENERAL - Physical Exam Exam: See Below (See dictation) Course - Vital Signs Last Recorded V/S: Last Vital Signs Temp 97.4 F 06/12/21 17:31 Pulse 87 06/12/21 18:41 Resp 22 H 06/12/21 18:41 BP 204/121 H 06/12/21 18:41 Pulse Ox 99 06/12/21 18:41 - Orders/Labs/Meds Meds: Medications Discontinued Medications Generic Name Dose Route Start Last Admin Trade Name Freq PRN Reason Stop Dose Admin Lorazepam 0.5 mg 06/12/21 18:30 06/12/21 18:34 Lorazepam 0.5 Mg Tab PO 06/12/21 18:31 0.5 mg NOW STA Administration Ondansetron HCl 4 mg 06/12/21 18:28 06/12/21 18:34 Ondansetron 4 Mg Tab.Dis PO 06/12/21 18:29 Not Given ONETIME ONE Ondansetron HCl 4 mg 06/12/21 18:29 06/12/21 18:34 Ondansetron 4 Mg Tab.Dis PO 06/12/21 18:30 4 mg ONETIME ONE Administration Departure - Departure Time of Disposition: 18:49 Disposition: Home, Self-Care 01 Clinical Impression: Anxiety, Upper abdominal pain Hypertension Qualifiers: Hypertension type: unspecified Qualified Code(s): I10 - Essential (primary) hypertension - Discharge Information Referrals: PCP,None [Primary Care Provider] - Additional Instructions: The following information is given to patients seen in the emergency department who are being discharged to home. This information is to outline your options for follow-up care. We provide all patients seen in our emergency department with a follow-up referral. The need for follow-up, as well as the timing and circumstances, are variable depending upon the specifics of your emergency department visit. If you don't have a primary care physician on staff, we will provide you with a referral. We always advise you to contact your personal physician following an emergency department visit to inform them of the circumstance of the visit and for follow-up with them and/or the need for any referrals to a consulting specialist. The emergency department will also refer you to a specialist when appropriate. This referral assures that you have the opportunity for follow-up care with a specialist. All of these measure are taken in an effort to provide you with optimal care, which includes your follow-up. Under all circumstances we always encourage you to contact your private physician who remains a resource for coordinating your care. When calling for follow-up care, please make the office aware that this follow-up is from your recent emergency room visit. If for any reason you are refused follow-up, please contact the [facility] Emergency Department at and asked to speak to the emergency department charge nurse. [facility] [address] [place] [id number] [facility] [address] [place] [id number] 1. Continue to take your At Home medications for your anxiety and your blood pressure as discussed. 2. Follow-up with a primary care provider as discussed. Return to the ED as needed and as discussed. Sepsis Event Note (ED) - Evaluation Sepsis Screening Result: No Definite Risk - Focused Exam Vital Signs: Vital Signs Temp Pulse Resp BP Pulse Ox 06/12/21 18:41 87 22 H 204/121 H 99 06/12/21 17:31 97.4 F 67 193/121 H 97
== END 2021-06-12 19:00 | disposition home or self-care (01) ==
LOC: MW.ED 17:26
DX: F41.9 Anxiety disorder, unspecified (principal); R10.10 Upper abdominal pain, unspecified; I13.0 Hypertensive heart and chronic kidney disease with heart failure and stage 1 through stage 4 chronic kidney disease, or unspecified chronic kidney disease; E11.22 Type 2 diabetes mellitus with diabetic chronic kidney disease; N18.9 Chronic kidney disease, unspecified; I50.9 Heart failure, unspecified; J44.9 Chronic obstructive pulmonary disease, unspecified; K21.9 Gastro-esophageal reflux disease without esophagitis; Z88.2 Allergy status to sulfonamides; Z91.048 Other nonmedicinal substance allergy status; Z79.899 Other long term (current) drug therapy
CPT/HCPCS: 93005; 99284; A9270

== ENCOUNTER 2021-06-24 17:28 | Emergency (ER) | payer MEDICARE, MEDICAID ==
--- NOTE | 2021-06-24 17:33 | EDM.PDOC ---
ED HPI GENERAL MEDICAL PROBLEM - General Stated Complaint: BLISTERS ON FEET Time Seen by Provider: 06/24/21 17:29 Source of Information: Reports: Patient History Limitations: Reports: No Limitations - History of Present Illness INITIAL COMMENTS - FREE TEXT/NARRATIVE: 56-year-old female past medical history asthma, peptic ulcer disease, type 2 diabetes, coronary artery disease, end-stage renal disease on dialysis, CHF, COPD, ovarian cancer, anxiety with history of panic attacks, medication noncompliance presents for blistering to feet. Patient notes that a couple of days ago her home health nurse had noted that her feet appeared somewhat red and was concerned that maybe she was developing cellulitis. Patient notes that she has poor feeling in her bilateral lower extremities. She states that last night she took a bath and this morning woke up and noted that her feet were peeling and very red. She states that her son has told her that the thermostat on the bathtub is broken and that it runs very hot. Bilateral Feet Pain Score (Numeric/FACES): 5 - Related Data Allergies Allergy/AdvReac Type Severity Reaction Status Date / Time latex Allergy Mild Rash Verified 06/24/21 17:58 Sulfa (Sulfonamide Allergy Unknown Airway Verified 06/24/21 17:58 Antibiotics) Tightness sulfur dioxide Allergy Airway Verified 06/24/21 17:58 Tightness Home Meds: Home Meds Enalapril [Vasotec] 10 mg PO DAILY 11/07/19 [History] Furosemide [Lasix] 60 mg PO BID 11/07/19 [History] Acetaminophen [8 Hour Pain Relief] 650 mg PO QID PRN 02/23/21 [History] Bisacodyl [Gentle Laxative] 1 supp RC DAILY PRN 02/23/21 [History] Carbamide Peroxide [Debrox 6.5% Otic Soln] 3 drop EARBOTH Q12H 02/23/21 [His tory] Epoetin Negro [Procrit] 5,000 unit SUBCUT ASDIRECTED 02/23/21 [History] Ergocalciferol (Vitamin D2) [Vitamin D2] 50,000 unit PO DAILY 02/23/21 [History] Pantoprazole [ProTONIX] 40 mg PO DAILY 02/23/21 [History] amLODIPine [Norvasc] 10 mg PO DAILY 02/23/21 [History] cloNIDine [Catapres] 0.3 mg PO DAILY 02/23/21 [History] metOLazone [Metolazone] 5 mg PO ASDIRECTED 02/23/21 [History] LORazepam [Ativan] 0.5 mg PO BEDTIME PRN #10 tab 06/06/21 [Rx] Bacitracin [Bacitracin Oint] 1 applic TOP BID #1 jar 06/24/21 [Rx] clindamycin HCL [Clindamycin HCl] 450 mg PO TID 10 Days #90 capsule 06/24/21 [ Rx] Past Medical History - Past Health History Medical/Surgical History: Denies Medical/Surgical History HEENT History: Reports: Other (See Below) Other HEENT History: has top denture Cardiovascular History: Reports: Heart Failure, Hypertension, Pulmonary H ypertension, Other (See Below) Other Cardiovascular History: murmur as an infant, hypotesnion, "issues with heart racing" Respiratory History: Reports: COPD, PE, Other (See Below) Other Respiratory History: Carbon Monoxide posioning Gastrointestinal History: Reports: GERD, Helicobacter Pylori, Other (See Below) Other Gastrointestinal History: gastroparesis Genitourinary History: Reports: Acute Renal Failure, Chronic Renal Insuffiency 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: Musculoskeletal History: Reports: Back Pain, Chronic Neurological History: Reports: Migraines, Other (See Below) Other Neuro History: "Silent Migraines" Psychiatric History: Reports: Anxiety, Depression, Other (See Below) Other Psychiatric History: stress induced anxiety Endocrine/Metabolic History: Reports: Diabetes, Type II Other Endocrine/Metabolic History: Pt questions this Dx Hematologic History: Reports: Other (See Below) Other Hematologic History: States "bacterium in blood" Immunologic History: Reports: None Other Immunologic History: states was in the hospital in [place] last summer with blood infection "not sure what it was called" Oncologic (Cancer) History: Reports: Ovarian Dermatologic History: Reports: Eczema - Infectious Disease History Infectious Disease History: Reports: Chicken Pox, MRSA, Novel Coronavirus - Past Surgical History Head Surgeries/Procedures: Reports: None HEENT Surgical History: Reports: None Cardiovascular Surgical History: Reports: None Respiratory Surgical History: Reports: None GI Surgical History: Reports: EGD Female Surgical History: Reports: None Endocrine Surgical History: Reports: None Neurological Surgical History: Reports: None Musculoskeletal Surgical History: Reports: Carpal Tunnel Oncologic Surgical History: Reports: None Other Oncologic Surgeries/Procedures: surgery for her ovarian cancer- chemo after when she was 24 yrs old Dermatological Surgical History: Reports: None - History Comment History Comment: Son says she's been evaluated for these sxs in past but doesn't recall where w/u was done (including CT of abd). No EGD ever done. The h pylori was dx'd by serologies. Social & Family History - Family History Family Medical History: No Pertinent Family History Cardiac: Reports: Hypertension Other Cardiac Family History: Mother, Aunt Respiratory: Reports: COPD Other Respiratory Family Hisory: Uncle GI: Reports: None Neurological: Reports: Other (See Below) Other Neurological Family History: Stroke-Grandmother Endocrine/Metabolic: Reports: Diabetes, type II - Caffeine Use Caffeine Use: Reports: None - Living Situation & Occupation Living situation: Reports: Single Occupation: Unemployed ED ROS GENERAL - Review of Systems Review Of Systems: Comprehensive ROS is negative, except as noted in HPI. ED EXAM, GENERAL - Physical Exam Exam: See Below Exam Limited By: No Limitations General Appearance: Alert, WD/WN, No Apparent Distress Ears: Hearing Grossly Normal Throat/Mouth: Normal Voice, No Airway Compromise Head: Atraumatic, Normocephalic Neck: Normal Inspection Respiratory/Chest: No Respiratory Distress, Lungs Clear, Normal Breath Sounds, No Accessory Muscle Use Cardiovascular: Normal Peripheral Pulses, Regular Rate, Rhythm GI/Abdominal: Soft, Non-Tender Extremities: Other (erythema and swelling of b/l feet to level of ankle; desquamation of toes; consistent with second degree ontiveros) Neurological: Alert Psychiatric: Normal Affect, Normal Mood Skin Exam: Warm, Dry, Intact, Normal Color Course - Vital Signs Last Recorded V/S: Last Vital Signs Temp 97.5 F 06/24/21 18:01 Pulse 82 06/24/21 18:01 Resp 20 06/24/21 18:01 BP 170/92 H 06/24/21 18:01 Pulse Ox 95 06/24/21 18:01 - Orders/Labs/Meds Orders: Active Orders 24 hr Category Date Time Status Vaccines to be Administered [RC] PER UNIT ROUTINE Care 06/24/21 18:19 Active Bacitracin [Bacitracin Oint 1 GM] Med 06/24/21 18:52 Once 1 dose TOP ONETIME ONE Clindamycin Phosphate [Cleocin] Med 06/24/21 18:52 Once 300 mg IM ONETIME ONE Clindamycin Phosphate [Cleocin] 300 mg Med 06/24/21 18:19 Stop Req Sodium Chloride 0.9% [Normal Saline] 50 ml IV ONETIME HYDROmorphone [Dilaudid] Med 06/24/21 18:52 Once 1 mg IM ONETIME ONE Medication Orders Clindamycin Phosphate (Clindamycin Phosphate 900 Mg/6 Ml Sdv) 300 mg IM ONETIME ONE Stop: 06/24/21 18:53 Hydromorphone HCl (Hydromorphone 1 Mg/Ml Syringe) 1 mg IM ONETIME ONE Stop: 06/24/21 18:53 Meds: Medications Generic Name Dose Route Start Last Admin Trade Name Freq PRN Reason Stop Dose Admin Clindamycin Phosphate 300 mg 06/24/21 18:52 Clindamycin Phosphate 900 Mg/6 Ml Sdv IM 06/24/21 18:53 ONETIME ONE Hydromorphone HCl 1 mg 06/24/21 18:52 Hydromorphone 1 Mg/Ml Syringe IM 06/24/21 18:53 ONETIME ONE Discontinued Medications Generic Name Dose Route Start Last Admin Trade Name Freq PRN Reason Stop Dose Admin Diphtheria/Tetanus/Acell Pertussis 0.5 ml 06/24/21 18:19 Diphtheria,Pertussis(Acell),Tetanus Vaccine 0.5 Ml Syringe IM 06/24/21 18:20 .ONCE ONE Hydromorphone HCl 1 mg 06/24/21 18:13 Hydromorphone 1 Mg/Ml Syringe IVPUSH 06/24/21 18:14 ONETIME ONE Sodium Chloride 1,000 mls @ 999 mls/hr 06/24/21 18:13 Normal Saline IV 06/24/21 19:13 .Bolus ONE Clindamycin Phosphate 300 mg/ 52 mls @ 100 mls/hr 06/24/21 18:19 Sodium Chloride IV 06/24/21 18:50 ONETIME ONE Sodium Chloride 10 ml 06/24/21 18:13 Sodium Chloride 0.9% 10 Ml Syringe FLUSH ASDIRECTED PRN Keep Vein Open Sodium Chloride 2.5 ml 06/24/21 18:13 Sodium Chloride 0.9% 2.5 Ml Syringe FLUSH ASDIRECTED PRN Keep Vein Open - Re-Assessments/Exams Free Text/Narrative Re-Assessment/Exam: 06/24/21 18:52 I had a long discussion with Dr. Castillo of the [facility] regarding patient's care. He gave recommendations for bacitracin ointment on the open wounds, clean dressing changes daily, cleaning the feet daily with soap and water, elevating the feet when not in use. He will follow up with the patient on Saturday via telehealth. I spoke with the patient at length and recommended admission to the hospital for wound care. The patient declines at this time and does note that she has a visiting nurse that would be able to come tomorrow and assist her with wound care until her telehealth appointment on Saturday when a more definitive plan can be put into place. She understands that she can return to the hospital at any time if she gets her mind or she is having difficulty caring for self at home. We are having difficulty obtaining IV access but in light of her not staying in the hospital I really do not see this changing her disposition so we will give her medications IM. Departure - Departure Time of Disposition: 18:54 Disposition: Home, Self-Care 01 Condition: Fair Clinical Impression: Second degree burn - Discharge Information Prescriptions: Bacitracin [Bacitracin Oint] 1 applic TOP BID #1 jar clindamycin HCL [Clindamycin HCl] 450 mg PO TID 10 Days #90 capsule Instructions: Second-Degree Burn, Adult Referrals: Dre Macario MD [Primary Care Provider] - Additional Instructions: You presented for ontiveros to your feet. You were given a dose of IM antibiotics as well as a tetanus vaccination. I spoke with Dr. Castillo at [facility] and they will call you on Saturday to help establish continuation of care. You will need to change your dressing every single day. You will need to wash your feet extensively once a day. Use the bacitracin cream that I prescribed to you on the open areas of your wounds. I have also prescribed an oral antibiotic that you need to take 3 times a day for the next 10 days or until cleared by the burn center physician. If it anytime you are having difficulty caring for self at home then please come back to the hospital. Please keep your feet elevated as much as you can when you are at home. The following information is given to patients seen in the emergency department who are being discharged to home. This information is to outline your options for follow-up care. We provide all patients seen in our emergency department with a follow-up referral. The need for follow-up, as well as the timing and circumstances, are variable depending upon the specifics of your emergency department visit. If you don't have a primary care physician on staff, we will provide you with a referral. We always advise you to contact your personal physician following an emergency department visit to inform them of the circumstance of the visit and for follow-up with them and/or the need for any referrals to a consulting specialist. The emergency department will also refer you to a specialist when appropriate. This referral assures that you have the opportunity for follow-up care with a specialist. All of these measure are taken in an effort to provide you with optimal care, which includes your follow-up. Under all circumstances we always encourage you to contact your private physician who remains a resource for coordinating your care. When calling for follow-up care, please make the office aware that this follow-up is from your recent emergency room visit. If for any reason you are refused follow-up, please contact the [facility] Emergency Department at and asked to speak to the emergency department charge nurse. Please follow up with your primary care physician. If you do not have a primary care physician, see below: [facility] [address] [place] [id number] [address] [facility] [address] [place] [id number] Sepsis Event Note (ED) - Focused Exam Vital Signs: Vital Signs Temp Pulse Resp BP Pulse Ox 06/24/21 18:01 97.5 F 82 20 170/92 H 95 - My Orders Last 24 Hours: My Active Orders 06/24/21 18:19 Vaccines to be Administered [RC] PER UNIT ROUTINE Clindamycin Phosphate [Cleocin] 300 mg Sodium Chloride 0.9% [Normal Saline] 50 ml IV ONETIME 06/24/21 18:52 Bacitracin [Bacitracin Oint 1 GM] 1 dose TOP ONETIME ONE Clindamycin Phosphate [Cleocin] 300 mg IM ONETIME ONE HYDROmorphone [Dilaudid] 1 mg IM ONETIME ONE - Assessment/Plan Last 24 Hours: My Active Orders 06/24/21 18:19 Vaccines to be Administered [RC] PER UNIT ROUTINE Clindamycin Phosphate [Cleocin] 300 mg Sodium Chloride 0.9% [Normal Saline] 50 ml IV ONETIME 06/24/21 18:52 Bacitracin [Bacitracin Oint 1 GM] 1 dose TOP ONETIME ONE Clindamycin Phosphate [Cleocin] 300 mg IM ONETIME ONE HYDROmorphone [Dilaudid] 1 mg IM ONETIME ONE
[2021-06-24] MEDS ORDERED: HYDROmorphone 1 MG/ML Syringe IVPUSH ONE (18:13)
[2021-06-24] MEDS ORDERED: Sodium Chloride 0.9% 1,000 ML IV ONE (18:13)
[2021-06-24] MEDS ORDERED: Sodium Chloride 0.9% 2.5 ML Syringe FLUSH PRN (18:13)
[2021-06-24] MEDS ORDERED: Sodium Chloride 0.9% 10 ML Syringe FLUSH PRN (18:13)
[2021-06-24] MEDS ORDERED: Diphtheria,Pertussis(Acell),Tetanus Vaccine 0.5 ML Syringe IM ONE (18:19)
[2021-06-24] MEDS ORDERED: Clindamycin Phosphate 900 MG/6 ML SDV IM ONE (18:52)
[2021-06-24] MEDS ORDERED: HYDROmorphone 1 MG/ML Syringe IM ONE (18:52)
[2021-06-24] MEDS ORDERED: Bacitracin Oint 1 GM U/D Packet TOP ONE (18:52)
[2021-06-24 21:13] VITALS: BP 161/85; PULSE 76
== END 2021-06-24 19:50 | disposition home or self-care (01) ==
LOC: MW.ED 17:28
DX: T25.222A Burn of second degree of left foot, initial encounter (principal); T25.221A Burn of second degree of right foot, initial encounter; I13.2 Hypertensive heart and chronic kidney disease with heart failure and with stage 5 chronic kidney disease, or end stage renal disease; E11.22 Type 2 diabetes mellitus with diabetic chronic kidney disease; N18.6 End stage renal disease; I50.9 Heart failure, unspecified; J44.9 Chronic obstructive pulmonary disease, unspecified; K21.9 Gastro-esophageal reflux disease without esophagitis; I25.10 Atherosclerotic heart disease of native coronary artery without angina pectoris; Z23 Encounter for immunization; Z99.2 Dependence on renal dialysis; Z91.040 Latex allergy status; Z88.2 Allergy status to sulfonamides; Z79.899 Other long term (current) drug therapy; X08.8XXA Exposure to other specified smoke, fire and flames, initial encounter
CPT/HCPCS: 16020; 90471; 90715; 96372; 99283; J1170; J3490

== ENCOUNTER 2021-11-13 03:59 | Emergency (ER) | payer MEDICARE, MEDICAID ==
--- NOTE | 2021-11-13 04:20 | EDM.PDOC ---
ED HPI GENERAL MEDICAL PROBLEM - General Chief Complaint: Head Injury Stated Complaint: FELL AND HIT HER HEAD Time Seen by Provider: 11/13/21 04:09 Source of Information: Reports: Patient History Limitations: Reports: No Limitations - History of Present Illness INITIAL COMMENTS - FREE TEXT/NARRATIVE: 56-year-old female history of ESRD on HD (MWF) presents with headache and neck pain s/p fall. She was in the shower just prior to arrival. She went to reach for her body wash and got tangled in the curtain and fell backwards out of the bathtub. She landed on the back of her head and her upper back. She denies LOC, vomiting but admits to nausea and neck pain and anterior chest wall pain. Patient lives alone and uses a walker for ADL. Her dialysis is scheduled for 11 AM today. ROS: A 10-point review of systems, other than pertinent positives and negatives as stated per HPI, is otherwise negative Past medical history: No additional pertinent history Past Surgical history: No additional pertinent history Social history: No additional pertinent history Family history: No additional pertinent history PHYSICAL EXAM General: AOx4, GCS = 15, No distress HEENT: dry mucous membrane Neck: C-collar in place. Cardiac: S1S2 RRR, right chest wall dialysis catheter in place. Anterior chest wall tender to palpation with no crepitus. Respiratory: CTAB, no crackles or rales, no wheezing Abdomen: Soft, nontender, no rebound or guarding, nondistended, no pulsatile mass. Back: nontender to T/L-spine. Right trapezius muscle tender to palpation. Musculoskeletal: NVI distally, no deformity Neuro: No focal deficits Treatments VIRTUALIZATION ARCHITECT: Reports: Cervical Collar Posterior Head Pain Score (Numeric/FACES): 8 - Related Data Allergies Allergy/AdvReac Type Severity Reaction Status Date / Time latex Allergy Mild Rash Verified 11/13/21 04:08 Sulfa (Sulfonamide Allergy Unknown Airway Verified 11/13/21 04:08 Antibiotics) Tightness sulfur dioxide Allergy Airway Verified 11/13/21 04:08 Tightness Home Meds: Home Meds Enalapril [Vasotec] 10 mg PO DAILY 11/07/19 [History] Furosemide [Lasix] 60 mg PO BID 11/07/19 [History] Acetaminophen [8 Hour Pain Relief] 650 mg PO QID PRN 02/23/21 [History] Bisacodyl [Gentle Laxative] 1 supp RC DAILY PRN 02/23/21 [History] Carbamide Peroxide [Debrox 6.5% Otic Soln] 3 drop EARBOTH Q12H 02/23/21 [History] Epoetin Negro [Procrit] 5,000 unit SUBCUT ASDIRECTED 02/23/21 [History] Ergocalciferol (Vitamin D2) [Vitamin D2] 50,000 unit PO DAILY 02/23/21 [History] Pantoprazole [ProTONIX] 40 mg PO DAILY 02/23/21 [History] amLODIPine [Norvasc] 10 mg PO DAILY 02/23/21 [History] cloNIDine [Catapres] 0.3 mg PO DAILY 02/23/21 [History] metOLazone [Metolazone] 5 mg PO ASDIRECTED 02/23/21 [History] LORazepam [Ativan] 0.5 mg PO BEDTIME PRN #10 tab 06/06/21 [Rx] Bacitracin [Bacitracin Oint] 1 applic TOP BID #1 jar 06/24/21 [Rx] clindamycin HCL [Clindamycin HCl] 450 mg PO TID 10 Days #90 capsule 06/24/21 [Rx] Acetaminophen/oxyCODONE [Percocet 325-5 MG] 1 each PO Q6H PRN #12 tab 11/13/21 [Rx] Past Medical History - Past Health History Medical/Surgical History: Denies Medical/Surgical History HEENT History: Reports: Other (See Below) Other HEENT History: has top denture Cardiovascular History: Reports: Heart Failure, Hypertension, Pulmonary Hypertension, Other (See Below) Other Cardiovascular History: murmur as an , hypotesnion, "issues with heart racing" Respiratory History: Reports: COPD, PE, Other (See Below) Other Respiratory History: Carbon Monoxide posioning Gastrointestinal History: Reports: GERD, Helicobacter Pylori, Other (See Below) Other Gastrointestinal History: gastroparesis Genitourinary History: Reports: Acute Renal Failure, Chronic Renal Insuffiency, Dialysis [employer] W[employer]ER History: Reports: Musculoskeletal History: Reports: Back Pain, Chronic Neurological History: Reports: Migraines, Other (See Below) Other Neuro History: "Silent Migraines" Psychiatric History: Reports: Anxiety, Depression, Other (See Below) Other Psychiatric History: stress induced anxiety Endocrine/Metabolic History: Reports: Diabetes, Type II Other Endocrine/Metabolic History: Pt questions this Dx Hematologic History: Reports: Other (See Below) Other Hematologic History: States "bacterium in blood" Immunologic History: Reports: None Other Immunologic History: states was in the hospital in [place] last summer with blood infection "not sure what it was called" Oncologic (Cancer) History: Reports: Ovarian Dermatologic History: Reports: Eczema - Infectious Disease History Infectious Disease History: Reports: Chicken Pox, MRSA, Novel Coronavirus - Past Surgical History Head Surgeries/Procedures: Reports: None HEENT Surgical History: Reports: None Cardiovascular Surgical History: Reports: None Respiratory Surgical History: Reports: None GI Surgical History: Reports: EGD Female Surgical History: Reports: None Endocrine Surgical History: Reports: None Neurological Surgical History: Reports: None Musculoskeletal Surgical History: Reports: Carpal Tunnel Oncologic Surgical History: Reports: None Other Oncologic Surgeries/Procedures: surgery for her ovarian cancer- chemo after when she was 24 yrs old Dermatological Surgical History: Reports: None - History Comment History Comment: Son says she's been evaluated for these sxs in past but doesn't recall where w/u was done (including CT of abd). No EGD ever done. The h pylori was dx'd by serologies. Social & Family History - Family History Family Medical History: No Pertinent Family History Cardiac: Reports: Hypertension Other Cardiac Family History: Mother, Aunt Respiratory: Reports: COPD Other Respiratory Family Hisory: Uncle GI: Reports: None Neurological: Reports: Other (See Below) Other Neurological Family History: Stroke-Grandmother Endocrine/Metabolic: Reports: Diabetes, type II - Caffeine Use Caffeine Use: Reports: Soda - Recreational Drug Use Recreational Drug Use: No - Living Situation & Occupation Living situation: Reports: Single Occupation: Unemployed ED ROS GENERAL - Review of Systems Review Of Systems: See Below (see dictation) ED EXAM, HEAD INJURY - Physical Exam Exam: See Below (see dictation) ED LACERATION/WOUND & JAKY PROC - Laceration/Wound Repair Head Lac/wound length in cm: 1 Appearance: Superficial Distal NVT: Neuro & Vascular Intact, No Tendon Injury Anesthetic Type: Topical Exploration/Debridement/Repair: Wound Explored Closed with: [place] Sterile Dressing Applied: None Complications: No #1 Interpretation EKG Interpretation Comments: Heart rate = 80 bpm, normal sinus rhythm, normal QRS interval, no STEMI. EKG and rhythm strip interpreted by me at 0613 Course - Vital Signs Last Recorded V/S: Last Vital Signs Temp 97.1 F 11/13/21 04:02 Pulse 84 11/13/21 06:36 Resp 20 11/13/21 06:36 BP 198/100 H 11/13/21 06:36 Pulse Ox 96 11/13/21 06:36 - Orders/Labs/Meds Orders: Active Orders 24 hr Category Date Time Status Cardiac Monitoring [RC] . DIRECTED Care 11/13/21 04:16 Active Pulse Oximetry Continuous Monitoring [OM.PC] CONTINUOUS Oth 11/13/21 04:30 Ordered Labs: Laboratory Tests 11/13/21 11/13/21 11/13/21 Range/Units 04:25 04:55 04:55 WBC 11.87 H (4.0-11.0) K/uL RBC 4.17 L (4.30-5.90) M/uL Hgb 12.9 (12.0-16.0) g/dL Hct 39.8 (36.0-46.0) % MCV 95.4 (80.0-98.0) fL MCH 30.9 (27.0-32.0) pg MCHC 32.4 (31.0-37.0) g/dL RDW Std Deviation 48.2 (28.0-62.0) fl RDW Coeff of [place] 14 (11.0-15.0) % Plt Count 202 (150-400) K/uL MPV 11.40 (7.40-12.00) fL Neut % (Auto) 81.8 H (48.0-80.0) % Lymph % (Auto) 11.5 L (16.0-40.0) % [place] % (Auto) 5.8 (0.0-15.0) % Eos % (Auto) 0.7 (0.0-7.0) % Baso % (Auto) 0.2 (0.0-1.5) % Neut # (Auto) 9.7 H (1.4-5.7) K/uL Lymph # (Auto) 1.4 (0.6-2.4) K/uL Harney # (Auto) 0.7 (0.0-0.8) K/uL Eos # (Auto) 0.1 (0.0-0.7) K/uL Baso # (Auto) 0.0 (0.0-0.1) K/uL Nucleated RBC % 0.0 /100WBC Nucleated RBCs # 0 K/uL Sodium 135 L (136-145) mmol/L Potassium 4.2 (3.5-5.1) mmol/L Chloride 96 L (98-107) mmol/L Carbon Dioxide 26.5 (21.0-32.0) mmol/L BUN 45 H (7.0-18.0) mg/dL Creatinine 6.1 H (0.6-1.0) mg/dL Est Cr Clr Drug Dosing 9.66 mL/min Estimated GFR (MDRD) 7.2 ml/min Glucose 226 H (74-106) mg/dL Calcium 8.6 (8.5-10.1) mg/dL Total Bilirubin 0.5 (0.2-1.0) mg/dL AST 17 (15-37) IU/L ALT 11 L (14-63) IU/L Alkaline Phosphatase 183 H (46-116) U/L Troponin I < 0.050 (0.000-0.056) ng/mL Total Protein 7.4 (6.4-8.2) g/dL Albumin 3.2 L (3.4-5.0) g/dL Globulin 4.2 H (2.6-4.0) g/dL Albumin/Globulin Ratio 0.8 L (0.9-1.6) Influenza Type A RNA NEGATIVE (NEGATIVE) Influenza Type B RNA NEGATIVE (NEGATIVE) SARS-CoV-2 RNA (CHIDI) NEGATIVE (NEGATIVE) Meds: Medications Discontinued Medications Generic Name Dose Route Start Last Admin Trade Name Freq PRN Reason Stop Dose Admin Lidocaine HCl 2 ml 11/13/21 06:21 11/13/21 06:21 Lidocaine 4% Top Soln 50 Ml Bottle MUCMEM 12/13/21 06:22 2 ml ONETIME ONE Administration Lidocaine/Tetracaine 3 ml 11/13/21 05:44 11/13/21 06:22 Epinephrine/Lidocaine/Tetracai Topical Gel 3 Ml TOP 11/13/21 05:45 Not Given ONETIME ONE Ondansetron HCl 4 mg 11/13/21 05:50 11/13/21 06:03 Ondansetron 4 Mg Tab.Dis PO 11/13/21 05:51 4 mg ONETIME ONE Administration Oxycodone/Acetaminophen 1 tab 11/13/21 05:50 11/13/21 06:02 Acetaminophen/Oxycodone 325-5 Mg Tab PO 11/13/21 05:51 1 tab ONETIME ONE Administration Departure - Departure Time of Disposition: 07:05 Disposition: Home, Self-Care 01 Condition: Good Clinical Impression: Scalp laceration, Strain of neck muscle, Contusion of cerebral cortex - Discharge Information *PRESCRIPTION DRUG MONITORING PROGRAM REVIEWED*: Not Applicable *COPY OF PRESCRIPTION DRUG MONITORING REPORT IN PATIENT ROSINA: Not Applicable Prescriptions: Acetaminophen/oxyCODONE [Percocet 325-5 MG] 1 each PO Q6H PRN #12 tab PRN Reason: Pain (Moderate 4-6) Instructions: Facial or Scalp Contusion, [id number], Muscle Strain, [id number], Laceration Care, Adult, Head Injury, Adult, [id number] Referrals: Dre Macario MD [Primary Care Provider] - 3 Days Forms: ED Department Discharge Additional Instructions: The need for follow-up, as well as the timing and circumstances, are variable depending upon the specifics of your emergency department visit. If you don't have a primary care physician on staff, we will provide you with a referral. We always advise you to contact your personal physician following an emergency department visit to inform them of the circumstance of the visit and for follow-up with them and/or the need for any referrals to a consulting specialist. The emergency department will also refer you to a specialist when appropriate. This referral assures that you have the opportunity for follow-up care with a specialist. All of these measure are taken in an effort to provide you with optimal care, which includes your follow-up. Under all circumstances we always encourage you to contact your private physician who remains a resource for coordinating your care. When calling for follow-up care, please make the office aware that this follow-up is from your recent emergency room visit. If for any reason you are refused follow-up, please contact the [facility] Emergency Department at and asked to speak to the emergency department charge nurse. If you do not have a primary care doctor, please follow up with the clinics below within 3-5 days. [facility] - Primary [facility] [address] [place] [id number] [facility] [address] [place] [id number] Sepsis Event Note (ED) - Evaluation Sepsis Screening Result: No Definite Risk - Focused Exam Vital Signs: Vital Signs Temp Pulse Resp BP Pulse Ox 11/13/21 06:36 84 20 198/100 H 96 11/13/21 04:02 97.1 F 81 19 155/82 H 99 - My Orders Last 24 Hours: My Active Orders 11/13/21 04:16 Cardiac Monitoring [RC] . DIRECTED 11/13/21 04:30 Pulse Oximetry Continuous Monitoring [OM.PC] CONTINUOUS - Assessment/Plan Last 24 Hours: My Active Orders 11/13/21 04:16 Cardiac Monitoring [RC] . DIRECTED 11/13/21 04:30 Pulse Oximetry Continuous Monitoring [OM.PC] CONTINUOUS
--- NOTE | 2021-11-13 05:08 | CT ---
INDICATION: Headache following fall TECHNIQUE: CT Head without i.v. contrast. Coronal and sagittal reformats were obtained. COMPARISON: 12/21/2020 FINDINGS: CSF space: The ventricles are normal for age. Brain: No evidence of mass, acute infarction or hemorrhage is seen. No mass-effect or midline shift is seen. The brain parenchyma is otherwise normal in appearance with preservation of the ball-white matter junction. Calvarium: The visualized paranasal sinuses are well aerated. The mastoid air cells are clear. The visualized orbits are grossly unremarkable. The calvarium is unremarkable in appearance with no fractures identified. IMPRESSION: 1. No evidence of acute infarction, intracranial hemorrhage, or mass-effect seen. Please note that all CT scans at this facility use dose modulation, iterative reconstruction, and/or weight-based dosing when appropriate to reduce radiation dose to as low as reasonably achievable. Dictated by: Lv Warren MD @ 11/13/2021 05:05:12 (Electronically Signed)
--- NOTE | 2021-11-13 05:16 | CT ---
INDICATION: Cervical spine pain following fall TECHNIQUE: CT cervical spine without i.v. contrast. Coronal and sagittal reformats were obtained. COMPARISON: MRI 12/30/2019 FINDINGS: Alignment: Unremarkable. Bone: A mild chronic appearing compression deformity seen on the superior endplate of C7 and is new compared to prior MRI. No osseous central canal stenosis is identified at any level. Disc: The disc spaces are unremarkable in appearance. The facet joints are unremarkable. Soft tissue: The prevertebral soft tissues are unremarkable in appearance. Moderate centrilobular emphysema seen in the apices bilaterally. IMPRESSION: 1. A mild chronic appearing compression deformity seen on the superior endplate of C7 and is new compared to prior MRI. This may be due to remote interval injury and correlation with physical exam is recommended to exclude focal tenderness or pain in this region that would be suggestive of an acute injury component. Dictated by Lv Warren MD @ 11/13/2021 5:15:35 AM Please note that all CT scans at this facility use dose modulation, iterative reconstruction, and/or weight-based dosing when appropriate to reduce radiation dose to as low as reasonably achievable. Dictated by: Lv Warren MD @ 11/13/2021 05:15:38 (Electronically Signed)
[2021-11-13 05:18] LABS: BLOOD UREA NITROGEN,BUN 45 mg/dL (7.0-18.0); CARBON DIOXIDE,CO2 26.5 mmol/L (21.0-32.0); CHLORIDE,CL 96 mmol/L (98-107); GLUCOSE RANDOM 226 mg/dL (74-106); POTASSIUM,K 4.2 mmol/L (3.5-5.1); SODIUM,NA 135 mmol/L (136-145)
[2021-11-13 05:20] LABS: CORONAVIRUS COVID-19 NAA NEGATIVE (NEGATIVE); INFLUENZA A NAA NEGATIVE (NEGATIVE); INFLUENZA B NAA NEGATIVE (NEGATIVE)
[2021-11-13] MEDS ORDERED: EPINEPHrine/Lidocaine/Tetracai Topical Gel 3 ML TOP ONE (05:44)
[2021-11-13] MEDS ORDERED: Ondansetron 4 MG Tab.DIS PO ONE (05:50)
[2021-11-13] MEDS ORDERED: Acetaminophen/oxyCODONE 325-5 MG Tab PO ONE (05:50)
--- NOTE | 2021-11-13 05:51 | CT ---
INDICATION: Chest pain following fall TECHNIQUE: CT chest without i.v. contrast. Coronal and sagittal reformats were obtained. COMPARISON: None FINDINGS: The sensitivity and specificity of the exam are moderately limited by beam hardening artifacts from scanning with the arms by the patient`s side. Cardiovascular: A right subclavian line is present with the tip in right atrium. The pulmonary arteries are unremarkable in appearance. No sign of aneurysm seen in the thoracic aorta. The presence of aortic dissection cannot be evaluated without the use of intravenous contrast. Moderate atherosclerotic calcifications are noted in the coronary arteries. Mediastinum: No mass or adenopathy seen. Lung: Moderate to severe centrilobular emphysema is present bilaterally. No pulmonary contusion, laceration or pneumothorax is seen. Pleura and pericardium: No sign of pleural effusion seen. No significant pericardial effusion is present. Chest wall and axilla: No mass or adenopathy seen. Bone: A mild chronic appearing compression deformity seen along the superior endplate of T12. No osseous central canal stenosis is seen at any level. Upper abdomen: Small amount of layering sludge is seen in the gallbladder. There is a cystic lesion in the upper pole of the left kidney measuring 2 cm and incompletely assessed without intravenous contrast. A punctate 1 mm stone is seen upper pole right kidney. IMPRESSION: 1. A mild chronic appearing compression deformity seen along the superior endplate of T12. No osseous central canal stenosis is seen at any level. Dictated by Lv Warren MD @ 11/13/2021 5:50:49 AM Please note that all CT scans at this facility use dose modulation, iterative reconstruction, and/or weight-based dosing when appropriate to reduce radiation dose to as low as reasonably achievable. Dictated by: Lv Warren MD @ 11/13/2021 05:50:56 (Electronically Signed)
[2021-11-13] MEDS ORDERED: Lidocaine 4% Top Soln 50 ML Bottle MUCMEM ONE (06:21)
[2021-11-13 07:41] VITALS: PULSE 79
[2021-11-13 07:42] VITALS: BP 146/77
== END 2021-11-13 07:58 | disposition home or self-care (01) ==
LOC: MW.ED 03:59
DX: S01.01XA Laceration without foreign body of scalp, initial encounter (principal); S16.1XXA Strain of muscle, fascia and tendon at neck level, initial encounter; E11.22 Type 2 diabetes mellitus with diabetic chronic kidney disease; I13.0 Hypertensive heart and chronic kidney disease with heart failure and stage 1 through stage 4 chronic kidney disease, or unspecified chronic kidney disease; N18.9 Chronic kidney disease, unspecified; I50.9 Heart failure, unspecified; J44.9 Chronic obstructive pulmonary disease, unspecified; K21.9 Gastro-esophageal reflux disease without esophagitis; Z91.040 Latex allergy status; Z88.2 Allergy status to sulfonamides; Z91.048 Other nonmedicinal substance allergy status; Z99.2 Dependence on renal dialysis; Z20.822 Contact with and (suspected) exposure to COVID-19; W18.39XA Other fall on same level, initial encounter
CPT/HCPCS: 0240U; 12001; 36415; 70450; 71250; 72125; 80053; 84484; 85025; 93005; 99284; A9270

== ENCOUNTER 2021-11-15 09:05 | Emergency (ER) | payer MEDICARE, MEDICAID ==
[2021-11-15 09:13] VITALS: BP 146/77; PULSE 87
[2021-11-15] MEDS ORDERED: Acetaminophen/oxyCODONE 325-5 MG Tab PO ONE (10:26)
--- NOTE | 2021-11-15 10:52 | EDM.PDOC ---
ED HPI GENERAL MEDICAL PROBLEM - General Chief Complaint: Lower Extremity Injury/Pain Stated Complaint: PT FELL Time Seen by Provider: 11/15/21 10:02 Source of Information: Reports: Patient History Limitations: Reports: No Limitations - History of Present Illness INITIAL COMMENTS - FREE TEXT/NARRATIVE: HISTORY AND PHYSICAL: History of present illness: Patient is a 56-year-old female, with an extensive medical history including end-stage renal disease on dialysis, scheduled to receive dialysis now but came to the emergency room instead, congestive heart failure, hypertension, COPD, and prior ovarian cancer, who presents emergency room today with concern of a fall. Patient states that she has an unsteady gait at her baseline and uses a walker and does live home alone. Patient states that she was seen in the ED 2 days ago for a fall and at that time had armando placed in her head after she fell in the bathroom. Patient states that she was standing to the foot entryway and went to go turn her walker and caught it on the wall and states that she did not completely fall hard but landed on her left hip and the rest was holding the walker so did not hit her head or lose consciousness. Patient states that she did have some left hip discomfort and did get herself off the ground and shuffle to the couch. Patient states that this did occur yesterday. Patient states that she has mostly been sitting in the couch and then when she went to get up this morning states that she had a lot of pain so came here to the emergency room. Other than the left hip pain, patient has no other associated injury. Patient did state that over the past week in general she has felt unwell and nauseous. Patient states that nothing that she can really pinpoint but has been more tired and fatigued and she believes this is why she has been falling. Patient denies fever, chills, chest pain, shortness of breath, or cough. Denies headache, neck stiff ness, change in vision, syncope, or near syncope. Denies nausea, vomiting, abdominal pain, diarrhea, constipation, or dysuria. Has not noted any blood in urine or stool. Patient has been eating and drinking appropriately. Review of systems: As per history of present illness and below otherwise all systems reviewed and negative. Past medical history: As per history of present illness and as reviewed below otherwise noncont ributory. Surgical history: As per history of present illness and as reviewed below otherwise noncontributory. Social history: See social history for further information Family history: As per history of present illness and as reviewed below otherwise noncontributory. Physical exam: General: Patient is alert, oriented, and in no acute distress. Patient laying comfortably on exam table, does appear uncomfortable with repositioning in bed but is comfortable as long as laying still. Vitals stable and reviewed by me. Chronically ill and frail appearing. HEENT: There are 2 armando in the posterior scalp. Otherwise, atraumatic, normocephalic, pupils equal and reactive bilaterally, negative for conjunctival pallor or scleral icterus, mucous membranes moist, throat clear, neck supple, no ntender, trachea midline. No drooling or trismus noted. No meningeal signs. No hot potato voice noted. Lungs: Clear to auscultation, breath sounds equal bilaterally, chest nontender. Heart: S1S2, regular rate and rhythm without overt murmur Abdomen: Soft, nondistended, nontender. Negative for masses or hepatosplenomegaly. Negative for costovertebral tenderness. Pelvis: Stable nontender. Genitourinary: Deferred. Rectal: Just above the coccyx area, there is a stage II pressure ulcer noted without evidence of cellulitis or infection. Skin: Intact, warm, dry. No lesions or rashes noted. Extremities: No obvious deformity of the bilateral upper or lower extremities. Patient has full range of motion of bilateral upper extremities. Patient has full range of motion of the right lower extremity but has limited range of motion of the left hip due to pain. Does have full range of motion of the left knee ankle and digits. No obvious deformity of the complete left lower extremity. Patient does have pain to palpation of the proximal left femur/hip area without overlying contusion, ecchymosis, or obvious deformity. Dorsalis pedis and posterior tibial pulses are grossly intact bilaterally with capillary refill less than 2 seconds. All compartments are soft of bilateral lower extremities. No obvious deformity of the complete spine. No step-offs, crepitus, or point tenderness of the complete spine. Patient has full range of motion of the complete spine without pain or difficulty. Otherwise, atraumatic, negative for cords or calf pain. Neurovascular unremarkable. Neuro: Awake, alert, oriented. Cranial nerves II through XII unremarkable. Cerebellum unremarkable. Motor and sensory unremarkable throughout. Exam nonfocal. Medical Decision Making: Patient is a 56-year-old female, with a complicated past medical history as described above, who presents emergency room today after a fall and injuring her left hip. Patient states that she has had a generalized "unwell "feeling but is unable to pinpoint this. Upon arrival to the ED, patient is vitally stable, chronically ill and frail appearing on exam, otherwise well. She is comfortable as long as she is not repositioning her left hip. Patient does have significant pain with range of motion of her left hip but otherwise has full range of motion of the remainder upper and lower extremities. Patient is neurovascularly intact without obvious deformity. At this time, as patient has been feeling "unwell "was recently seen 2 days in our emergency room also for a fall sustaining a laceration to her posterior scalp, will perform some basic lab work to assess for possible underlying cause of fall. According to patient, her baseline gait is poor and she is a walker for ambulation and states that falling is not unusual for her. See Dr. Pacheco's dictation for specific EKG interpretation. Otherwise, normal sinus rhythm without STEMI. CBC does show mild anemia with red blood cells at 3.74, hemoglobin 11.3, and hematocrit of 35.8. Patient also thrombocytopenic at 143, other mild derangements of CBC are unremarkable. CMP does show sodium mildly decreased at 134, hypochloremia of 97. BUN and creatinine are elevated at 38 and 5.6 respectively. Note that patient is in chronic renal failure on dialysis. Troponin negative. Covid and influenza negative. Hip/pelvic x-ray shows mild degenerative changes of the left hip without acute osseous abnormality. X-ray shows hyperinflation and chronic interstitial changes with likely mild pulmonary vascular congestion. (Patient does have a history of pulmonary hype rtension). Upon reevaluation of patient, following therapeutics, she is now able to move the left hip with some minimal discomfort. She has now able to sit up and bear weight and ambulate, which she states is per her baseline. Strict return precautions thoroughly discussed with patient. Discussed importance for follow-up with a primary care provider. Patient states that she does have Percocet available to her at home. Voices understanding and is agreeable to plan of care. Denies any further questions or concerns at this time. Diagnostics: EKG, CBC, CMP, UA, CXR, Hip w pelvis XR, COVID/Flu Therapeutics: Percocet tab Prescription: None Impression: Left hip injury Plan: 1. You can take your as prescribed narcotic pain medication and Tylenol as discussed for pain and discomfort. 2. Follow-up with your primary care provider as discussed. Return to the ED as needed and as discussed. Definitive disposition and diagnosis as appropriate pending reevaluation and review of above. Left Hip Pain Score (Numeric/FACES): 4 - Related Data Allergies Allergy/AdvReac Type Severity Reaction Status Date / Time latex Allergy Mild Rash Verified 11/15/21 09:08 Sulfa (Sulfonamide Allergy Unknown Airway Verified 11/15/21 09:08 Antibiotics) Tightness sulfur dioxide Allergy Airway Verified 11/15/21 09:08 Tightness Home Meds: Home Meds Enalapril [Vasotec] 10 mg PO DAILY 11/07/19 [History] Furosemide [Lasix] 60 mg PO BID 11/07/19 [History] Acetaminophen [8 Hour Pain Relief] 650 mg PO QID PRN 02/23/21 [History] Bisacodyl [Gentle Laxative] 1 supp RC DAILY PRN 02/23/21 [History] Carbamide Peroxide [Debrox 6.5% Otic Soln] 3 drop EARBOTH Q12H 02/23/21 [History] Epoetin Negro [Procrit] 5,000 unit SUBCUT ASDIRECTED 02/23/21 [History] Ergocalciferol (Vitamin D2) [Vitamin D2] 50,000 unit PO DAILY 02/23/21 [History] Pantoprazole [ProTONIX] 40 mg PO DAILY 02/23/21 [History] amLODIPine [Norvasc] 10 mg PO DAILY 02/23/21 [History] cloNIDine [Catapres] 0.3 mg PO DAILY 02/23/21 [History] metOLazone [Metolazone] 5 mg PO ASDIRECTED 02/23/21 [History] LORazepam [Ativan] 0.5 mg PO BEDTIME PRN #10 tab 06/06/21 [Rx] Bacitracin [Bacitracin Oint] 1 applic TOP BID #1 jar 06/24/21 [Rx] clindamycin HCL [Clindamycin HCl] 450 mg PO TID 10 Days #90 capsule 06/24/21 [Rx] Acetaminophen/oxyCODONE [Percocet 325-5 MG] 1 each PO Q6H PRN #12 tab 11/13/21 [Rx] Promethazine [Phenergan] 25 mg PO Q6H PRN #8 tab 11/13/21 [Rx] Past Medical History - Past Health History Medical/Surgical History: Denies Medical/Surgical History HEENT History: Reports: Other (See Below) Other HEENT History: has top denture Cardiovascular History: Reports: Heart Failure, Hypertension, Pulmonary Hypertension, Other (See Below) Other Cardiovascular History: murmur as an , hypotesnion, "issues with heart racing" Respiratory History: Reports: COPD, PE, Other (See Below) Other Respiratory History: Carbon Monoxide posioning Gastrointestinal History: Reports: GERD, Helicobacter Pylori, Other (See Below) Other Gastrointestinal History: gastroparesis Genitourinary History: Reports: Acute Renal Failure, Chronic Renal Insuffiency, Dialysis ACCOUNTING INTERN History: Reports: Musculoskeletal History: Reports: Back Pain, Chronic Neurological History: Reports: Migraines, Neuropathy, Peripheral, Other (See Below) Other Neuro History: "Silent Migraines" Psychiatric History: Reports: Anxiety, Depression, Other (See Below) Other Psychiatric History: stress induced anxiety Endocrine/Metabolic History: Reports: Diabetes, Type II Other Endocrine/Metabolic History: Pt questions this Dx Hematologic History: Reports: Other (See Below) Other Hematologic History: States "bacterium in blood" Immunologic History: Reports: None Other Immunologic History: states was in the hospital in [place] last summer with blood infection "not sure what it was called" Oncologic (Cancer) History: Reports: Ovarian Dermatologic History: Reports: Eczema - Infectious Disease History Infectious Disease History: Reports: Chicken Pox, MRSA, Novel Coronavirus - Past Surgical History Head Surgeries/Procedures: Reports: None HEENT Surgical History: Reports: None Cardiovascular Surgical History: Reports: None Respiratory Surgical History: Reports: None GI Surgical History: Reports: EGD Female Surgical History: Reports: None Endocrine Surgical History: Reports: None Neurological Surgical History: Reports: None Musculoskeletal Surgical History: Reports: Carpal Tunnel Oncologic Surgical History: Reports: None Other Oncologic Surgeries/Procedures: surgery for her ovarian cancer- chemo after when she was 24 yrs old Dermatological Surgical History: Reports: None - History Comment History Comment: Son says she's been evaluated for these sxs in past but doesn't recall where w/u was done (including CT of abd). No EGD ever done. The h pylori was dx'd by serologies. Social & Family History - Family History Family Medical History: No Pertinent Family History Cardiac: Reports: Hypertension Other Cardiac Family History: Mother, Aunt Respiratory: Reports: COPD Other Respiratory Family Hisory: Uncle GI: Reports: None Neurological: Reports: Other (See Below) Other Neurological Family History: Stroke-Grandmother Endocrine/Metabolic: Reports: Diabetes, type II - Tobacco Use Tobacco Use Status *Q: Current Every Day Tobacco User Years of Tobacco use: 1 Packs/Tins Daily: 0.2 - Caffeine Use Caffeine Use: Reports: None - Recreational Drug Use Recreational Drug Use: No - Living Situation & Occupation Living situation: Reports: Single Occupation: Unemployed Review of Systems - Review of Systems Review Of Systems: Comprehensive ROS is negative, except as noted in HPI. ED EXAM, GENERAL - Physical Exam Exam: See Below (see dictation) Course - Vital Signs Last Recorded V/S: Last Vital Signs Temp 97.6 F 11/15/21 09:05 Pulse 87 11/15/21 09:05 Resp BP 146/77 H 11/15/21 09:05 Pulse Ox 95 11/15/21 09:05 - Orders/Labs/Meds Orders: Active Orders 24 hr Category Date Time Status UA RFX CRISSY AND CULT IF INDIC [URIN] Stat Lab 11/15/21 10:26 Ordered Labs: Laboratory Tests 11/15/21 11/15/21 11/15/21 Range/Units 11:33 11:33 12:20 WBC 9.83 (4.0-11.0) K/uL RBC 3.74 L (4.30-5.90) M/uL Hgb 11.3 L (12.0-16.0) g/dL Hct 35.8 L (36.0-46.0) % MCV 95.7 (80.0-98.0) fL MCH 30.2 (27.0-32.0) pg MCHC 31.6 (31.0-37.0) g/dL RDW Std Deviation 48.9 (28.0-62.0) fl RDW Coeff of Kennedi 14 (11.0-15.0) % Plt Count 143 L (150-400) K/uL MPV 11.60 (7.40-12.00) fL Neut % (Auto) 82.4 H (48.0-80.0) % Lymph % (Auto) 8.3 L (16.0-40.0) % Hitchcock % (Auto) 5.2 (0.0-15.0) % Eos % (Auto) 4.0 (0.0-7.0) % Baso % (Auto) 0.1 (0.0-1.5) % Neut # (Auto) 8.1 H (1.4-5.7) K/uL Lymph # (Auto) 0.8 (0.6-2.4) K/uL Hitchcock # (Auto) 0.5 (0.0-0.8) K/uL Eos # (Auto) 0.4 (0.0-0.7) K/uL Baso # (Auto) 0.0 (0.0-0.1) K/uL Nucleated RBC % 0.0 /100WBC Nucleated RBCs # 0 K/uL Sodium 134 L (136-145) mmol/L Potassium 4.4 (3.5-5.1) mmol/L Chloride 97 L (98-107) mmol/L Carbon Dioxide 27.1 (21.0-32.0) mmol/L BUN 38 H (7.0-18.0) mg/dL Creatinine 5.6 H (0.6-1.0) mg/dL Est Cr Clr Drug Dosing 10.53 mL/min Estimated GFR (MDRD) 7.9 ml/min Glucose 216 H (74-106) mg/dL Calcium 7.8 L (8.5-10.1) mg/dL Total Bilirubin 0.5 (0.2-1.0) mg/dL AST 17 (15-37) IU/L ALT 21 (14-63) IU/L Alkaline Phosphatase 164 H (46-116) U/L Troponin I < 0.050 (0.000-0.056) ng/mL Total Protein 6.3 L (6.4-8.2) g/dL Albumin 2.7 L (3.4-5.0) g/dL Globulin 3.6 (2.6-4.0) g/dL Albumin/Globulin Ratio 0.8 L (0.9-1.6) Influenza Type A RNA NEGATIVE (NEGATIVE) Influenza Type B RNA NEGATIVE (NEGATIVE) SARS-CoV-2 RNA (CHIDI) NEGATIVE (NEGATIVE) Meds: Medications Discontinued Medications Generic Name Dose Route Start Last Admin Trade Name Matty PRN Reason Stop Dose Admin Oxycodone/Acetaminophen 1 tab 11/15/21 10:26 11/15/21 10:33 Acetaminophen/Oxycodone 325-5 Mg Tab PO 11/15/21 10:27 1 tab ONETIME ONE Administration Departure - Departure Time of Disposition: 14:26 Disposition: Home, Self-Care 01 Clinical Impression: Hip injury - Discharge Information Instructions: Hip Pain Referrals: Lew Jacobsen NP [Primary Care Provider] - Forms: ED Department Discharge Additional Instructions: The following information is given to patients seen in the emergency department who are being discharged to home. This information is to outline your options for follow-up care. We provide all patients seen in our emergency department with a follow-up referral. The need for follow-up, as well as the timing and circumstances, are variable depending upon the specifics of your emergency department visit. If you don't have a primary care physician on staff, we will provide you with a referral. We always advise you to contact your personal physician following an emergency department visit to inform them of the circumstance of the visit and for follow-up with them and/or the need for any referrals to a consulting specialist. The emergency department will also refer you to a specialist when appropriate. This referral assures that you have the opportunity for follow-up care with a specialist. All of these measure are taken in an effort to provide you with optimal care, which includes your follow-up. Under all circumstances we always encourage you to contact your private physician who remains a resource for coordinating your care. When calling for follow-up care, please make the office aware that this follow-up is from your recent emergency room visit. If for any reason you are refused follow-up, please contact the [facility] Emergency Department at and asked to speak to the emergency department charge nurse. [facility] [address] [place] [id number] [facility] [address] [place] [address] 1. You can take your as prescribed narcotic pain medication and Tylenol as discussed for pain and discomfort. 2. Follow-up with your primary care provider as discussed. Return to the ED as needed and as discussed. Sepsis Event Note (ED) - Evaluation Sepsis Screening Result: No Definite Risk - Focused Exam Vital Signs: Vital Signs Temp Pulse BP Pulse Ox 11/15/21 09:05 97.6 F 87 146/77 H 95 - My Orders Last 24 Hours: My Active Orders 11/15/21 10:26 UA RFX CRISSY AND CULT IF INDIC [URIN] Stat - Assessment/Plan Last 24 Hours: My Active Orders 11/15/21 10:26 UA RFX CRISSY AND CULT IF INDIC [URIN] Stat
--- NOTE | 2021-11-15 11:35 | PCM.EKG ---
#1 Interpretation Time: 11:22 EKG Interpretation Comments: EKG: NSR, nonspecific ST/T changes, Rate -83
--- NOTE | 2021-11-15 11:48 | CR ---
Indication: Fall Comparison: Single view chest June 06, 2021 Technique: Single AP view chest Findings: There is hyperinflation and chronic interstitial change. There is basilar atelectasis versus scar with mild basilar pleural thickening. There are mildly increased interstitial markings likely representing pulmonary vascular congestion. There is no pneumothorax. The cardiac silhouette is stable with a dual-lumen dialysis catheter. The bony thorax is grossly intact. Impression: Hyperinflation and chronic interstitial changes with likely mild pulmonary vascular congestion. Dictated by Radu Ortiz MD @ 11/15/2021 11:46:42 AM (Electronically Signed)
--- NOTE | 2021-11-15 11:57 | CR ---
INDICATION: Fall TECHNIQUE: Single view pelvis with AP and Frogleg views left hip COMPARISONS: None available. FINDINGS: Femoral heads are well-seated in the acetabula. There is axial loss of joint space with marginal osteophyte formation and degenerative changes of the bilateral hips. There is no evidence of displaced fracture or dislocation. The soft tissues are unremarkable. IMPRESSION: Mild degenerative changes of the left hip without acute osseous abnormality. Dictated by Radu Ortiz MD @ 11/15/2021 11:55:14 AM (Electronically Signed)
[2021-11-15 12:20] LABS: BLOOD UREA NITROGEN,BUN 38 mg/dL (7.0-18.0); CARBON DIOXIDE,CO2 27.1 mmol/L (21.0-32.0); CHLORIDE,CL 97 mmol/L (98-107); GLUCOSE RANDOM 216 mg/dL (74-106); POTASSIUM,K 4.4 mmol/L (3.5-5.1); SODIUM,NA 134 mmol/L (136-145)
[2021-11-15 13:25] LABS: CORONAVIRUS COVID-19 NAA NEGATIVE (NEGATIVE); INFLUENZA A NAA NEGATIVE (NEGATIVE); INFLUENZA B NAA NEGATIVE (NEGATIVE)
== END 2021-11-15 15:01 | disposition home or self-care (01) ==
LOC: MW.ED 09:05
DX: S79.912A Unspecified injury of left hip, initial encounter (principal); I13.2 Hypertensive heart and chronic kidney disease with heart failure and with stage 5 chronic kidney disease, or end stage renal disease; E11.22 Type 2 diabetes mellitus with diabetic chronic kidney disease; I50.9 Heart failure, unspecified; N18.6 End stage renal disease; K21.9 Gastro-esophageal reflux disease without esophagitis; J44.9 Chronic obstructive pulmonary disease, unspecified; Z91.041 Radiographic dye allergy status; Z88.2 Allergy status to sulfonamides; Z72.0 Tobacco use; Z91.048 Other nonmedicinal substance allergy status; Z20.822 Contact with and (suspected) exposure to COVID-19; Z99.2 Dependence on renal dialysis; W18.39XA Other fall on same level, initial encounter; Y92.002 Bathroom of unspecified non-institutional (private) residence as the place of occurrence of the external cause
CPT/HCPCS: 0240U; 36415; 71045; 73502; 80053; 84484; 85025; 93005; 99284; A9270

== ENCOUNTER 2022-02-07 15:49 | Emergency (ER) | payer MEDICARE, MEDICAID ==
[2022-02-07 16:37] VITALS: BP 139/69; PULSE 78
== END 2022-02-07 16:35 | disposition home or self-care (01) ==
LOC: MW.ED 15:49
DX: J02.9 Acute pharyngitis, unspecified (principal); J44.9 Chronic obstructive pulmonary disease, unspecified; I12.0 Hypertensive chronic kidney disease with stage 5 chronic kidney disease or end stage renal disease; E11.42 Type 2 diabetes mellitus with diabetic polyneuropathy; E11.22 Type 2 diabetes mellitus with diabetic chronic kidney disease; N18.6 End stage renal disease; Z88.2 Allergy status to sulfonamides; Z91.040 Latex allergy status; Z88.8 Allergy status to other drugs, medicaments and biological substances; Z79.899 Other long term (current) drug therapy; Z99.2 Dependence on renal dialysis
CPT/HCPCS: 99282

== ENCOUNTER 2022-05-16 16:19 | Emergency (ER) | payer MEDICARE, MEDICAID ==
[2022-05-16] MEDS ORDERED: HYDROmorphone 1 MG/ML Syringe IM ONE (16:32)
[2022-05-16 18:25] VITALS: BP 112/60; PULSE 68
== END 2022-05-16 18:22 | disposition home or self-care (01) ==
LOC: MW.ED 16:19
DX: S22.41XA Multiple fractures of ribs, right side, initial encounter for closed fracture (principal); I11.0 Hypertensive heart disease with heart failure; I50.9 Heart failure, unspecified; J44.9 Chronic obstructive pulmonary disease, unspecified; K21.9 Gastro-esophageal reflux disease without esophagitis; E11.9 Type 2 diabetes mellitus without complications; Z79.899 Other long term (current) drug therapy; Z88.2 Allergy status to sulfonamides; Z88.8 Allergy status to other drugs, medicaments and biological substances; W19.XXXA Unspecified fall, initial encounter
CPT/HCPCS: 71250; 96372; 99285; J1170

== ENCOUNTER 2023-02-11 14:01 | Emergency (ER) | payer MEDICARE, MEDICAID ==
[2023-02-11 18:49] LABS: CARBON DIOXIDE,CO2 30.4 mmol/L (21.0-32.0); POTASSIUM,K 3.7 mmol/L (3.5-5.1)
[2023-02-11] MEDS ORDERED: Insulin Regular, Human 100 Units/ML 10 ML Vial IVPUSH ONE (18:59)
[2023-02-11 21:26] VITALS: BP 133/66; PULSE 81
== END 2023-02-11 21:45 | disposition home or self-care (01) ==
LOC: MW.ED 14:01
DX: I13.2 Hypertensive heart and chronic kidney disease with heart failure and with stage 5 chronic kidney disease, or end stage renal disease (principal); E11.22 Type 2 diabetes mellitus with diabetic chronic kidney disease; N18.6 End stage renal disease; I50.9 Heart failure, unspecified; D63.1 Anemia in chronic kidney disease; I25.2 Old myocardial infarction; I25.10 Atherosclerotic heart disease of native coronary artery without angina pectoris; J44.9 Chronic obstructive pulmonary disease, unspecified; K21.9 Gastro-esophageal reflux disease without esophagitis; E11.42 Type 2 diabetes mellitus with diabetic polyneuropathy; Z99.2 Dependence on renal dialysis; Z88.2 Allergy status to sulfonamides; Z91.040 Latex allergy status; Z79.82 Long term (current) use of aspirin; Z79.899 Other long term (current) drug therapy; Z72.0 Tobacco use; Z86.16 Personal history of COVID-19
CPT/HCPCS: 36415; 36430; 80053; 82947; 85025; 86850; 86900; 86901; 86920; 99284; P9016; 99283; J1815-GY

== ENCOUNTER 2023-02-16 18:11 | Emergency (ER) | payer MEDICARE, MEDICAID ==
[2023-02-16] MEDS ORDERED: Sodium Chloride 0.9% 2.5 ML Syringe FLUSH PRN (18:35)
[2023-02-16] MEDS ORDERED: Sodium Chloride 0.9% 10 ML Syringe FLUSH PRN (18:35)
[2023-02-16 19:23] LABS: CARBON DIOXIDE,CO2 28.3 mmol/L (21.0-32.0); POTASSIUM,K 3.5 mmol/L (3.5-5.1)
[2023-02-16 19:48] LABS: CORONAVIRUS COVID-19 NAA NEGATIVE (NEGATIVE); INFLUENZA A NAA NEGATIVE (NEGATIVE); INFLUENZA B NAA NEGATIVE (NEGATIVE)
[2023-02-16 21:34] VITALS: BP 139/58; PULSE 78
== END 2023-02-16 23:00 ==
LOC: MW.ED 18:11
DX: K92.2 Gastrointestinal hemorrhage, unspecified (principal); I13.2 Hypertensive heart and chronic kidney disease with heart failure and with stage 5 chronic kidney disease, or end stage renal disease; E11.22 Type 2 diabetes mellitus with diabetic chronic kidney disease; E11.42 Type 2 diabetes mellitus with diabetic polyneuropathy; N18.6 End stage renal disease; I50.9 Heart failure, unspecified; D63.1 Anemia in chronic kidney disease; J44.9 Chronic obstructive pulmonary disease, unspecified; I25.10 Atherosclerotic heart disease of native coronary artery without angina pectoris; Z99.2 Dependence on renal dialysis; Z91.040 Latex allergy status; Z88.2 Allergy status to sulfonamides; Z79.82 Long term (current) use of aspirin; Z79.899 Other long term (current) drug therapy; Z86.16 Personal history of COVID-19; Z20.822 Contact with and (suspected) exposure to COVID-19
CPT/HCPCS: 0240U; 36415; 71045; 80053; 83880; 85025; 86850; 86900; 86901; 93005; 99284

== ENCOUNTER 2023-03-05 15:44 | Emergency (ER) | payer MEDICARE, MEDICAID ==
[2023-03-05] MEDS ORDERED: LORazepam 2 MG/ML SDV IVPUSH ONE (16:20)
[2023-03-05 16:43] LABS: POTASSIUM,K 3.8 mmol/L (3.5-5.1)
[2023-03-05] MEDS: traMADol 50 MG Tab PO ONE ×2 (17:04→17:06)
[2023-03-05] MEDS ORDERED: Morphine 2 MG/ML SYRINGE IVPUSH ONE (17:08)
[2023-03-05 17:41] VITALS: BP 173/87; PULSE 83
== END 2023-03-05 17:38 | disposition home or self-care (01) ==
LOC: MW.ED 15:44
DX: F41.0 Panic disorder [episodic paroxysmal anxiety] (principal); I13.0 Hypertensive heart and chronic kidney disease with heart failure and stage 1 through stage 4 chronic kidney disease, or unspecified chronic kidney disease; E11.22 Type 2 diabetes mellitus with diabetic chronic kidney disease; E11.42 Type 2 diabetes mellitus with diabetic polyneuropathy; N18.9 Chronic kidney disease, unspecified; I50.9 Heart failure, unspecified; I25.2 Old myocardial infarction; I10 Essential (primary) hypertension; J44.9 Chronic obstructive pulmonary disease, unspecified; Z91.040 Latex allergy status; Z88.2 Allergy status to sulfonamides; Z79.82 Long term (current) use of aspirin; Z99.2 Dependence on renal dialysis; Z79.899 Other long term (current) drug therapy
CPT/HCPCS: 36415; 80053; 85025; 96374; 96375; 99283; J2060; J2270; A9270-GY

== ENCOUNTER 2023-05-02 14:31 | Emergency (ER) | payer MEDICARE, MEDICAID ==
[2023-05-02] MEDS ORDERED: Ondansetron 4 MG/2 ML SDV IVPUSH ONE (15:26)
[2023-05-02] MEDS ORDERED: Morphine 4 MG/ML Syringe IVPUSH ONE ×3 (15:26→18:13)
[2023-05-02] MEDS ORDERED: Sodium Chloride 0.9% 1,000 ML IV SCH (15:30)
[2023-05-02 15:43] LABS: BASOPHILS PERCENT AUTO 0.3 % (0.0-1.5); EOSINOPHILS ABSOLUTE AUTO 0.1 K/uL (0.0-0.7); EOSINOPHILS PERCENT AUTO 0.7 % (0.0-7.0); HEMATOCRIT 42.1 % (36.0-46.0); HEMOGLOBIN 13.9 g/dL (12.0-16.0); LYMPHOCYTES ABSOLUTE AUTO 0.8 K/uL (0.6-2.4); LYMPHOCYTES PERCENT AUTO 7.7 % (16.0-40.0); MEAN CORPUSCULAR HEMOGLOBIN 32.7 pg (27.0-32.0); MEAN CORPUSCULAR VOLUME 99.1 fL (80.0-98.0); MONOCYTES ABSOLUTE AUTO 0.7 K/uL (0.0-0.8); MONOCYTES PERCENT AUTO 6.1 % (0.0-15.0); NEUTROPHILS ABSOLUTE AUTO 9.2 K/uL (1.4-5.7); NEUTROPHILS PERCENT AUTO 85.2 % (48.0-80.0); NRBC ABSOLUTE 0 K/uL; PLATELET COUNT,PLT 185 K/uL (150-400); RED BLOOD CELL COUNT 4.25 M/uL (4.30-5.90); WHITE BLOOD CELL COUNT,WBC 10.84 K/uL (4.0-11.0)
[2023-05-02 16:18] LABS: BILIRUBIN TOTAL 0.6 mg/dL (0.2-1.0); POTASSIUM,K 5.7 mmol/L (3.5-5.1)
[2023-05-02 16:28] LABS: A/G RATIO 0.8 (0.9-1.6); CALCIUM 9.2 mg/dL (8.5-10.1); CARBON DIOXIDE,CO2 20.1 mmol/L (21.0-32.0); CREATININE 9.5 mg/dL (0.6-1.0); EST CRCL DRUG DOSING (CG) 4.73 mL/min; PROTEIN TOTAL,TP 8.8 g/dL (6.4-8.2)
[2023-05-02 16:42] VITALS: PULSE 80
[2023-05-02] MEDS ORDERED: Promethazine 25 MG/ML SDV IM ONE (17:03)
[2023-05-02] MEDS ORDERED: Sodium Polystyrene Sulfonate 15 GM/60 ML Susp 60 ML Bot PO ONE (18:15)
[2023-05-02 18:23] VITALS: BP 168/89
== END 2023-05-02 18:29 | disposition left against medical advice (07) ==
LOC: MW.ED 14:31
DX: K29.00 Acute gastritis without bleeding (principal); E87.5 Hyperkalemia; K21.9 Gastro-esophageal reflux disease without esophagitis; E11.319 Type 2 diabetes mellitus with unspecified diabetic retinopathy without macular edema; E11.22 Type 2 diabetes mellitus with diabetic chronic kidney disease; N18.9 Chronic kidney disease, unspecified; I25.2 Old myocardial infarction; E11.42 Type 2 diabetes mellitus with diabetic polyneuropathy; Z86.16 Personal history of COVID-19
CPT/HCPCS: 36415; 74176; 80053; 83690; 83735; 85025; 93005; 96361; 96372; 96374; 96375; 96376; 99284; J2270; J2405; J2550; J7030; 93010

== ENCOUNTER 2023-05-07 17:04 | Emergency (ER) | payer MEDICARE, MEDICAID ==
[2023-05-07] MEDS ORDERED: Sodium Chloride 0.9% 2.5 ML Syringe FLUSH PRN (17:21)
[2023-05-07] MEDS ORDERED: Sodium Chloride 0.9% 10 ML Syringe FLUSH PRN (17:21)
[2023-05-07 18:03] LABS: BASOPHILS PERCENT AUTO 0.2 % (0.0-1.5); EOSINOPHILS ABSOLUTE AUTO 0.3 K/uL (0.0-0.7); EOSINOPHILS PERCENT AUTO 3.1 % (0.0-7.0); HEMATOCRIT 37.7 % (36.0-46.0); HEMOGLOBIN 12.4 g/dL (12.0-16.0); LYMPHOCYTES ABSOLUTE AUTO 0.8 K/uL (0.6-2.4); LYMPHOCYTES PERCENT AUTO 8.1 % (16.0-40.0); MEAN CORPUSCULAR HEMOGLOBIN 33.3 pg (27.0-32.0); MEAN CORPUSCULAR HGB CONC 32.9 g/dL (31.0-37.0); MEAN CORPUSCULAR VOLUME 101.3 fL (80.0-98.0); MONOCYTES ABSOLUTE AUTO 0.6 K/uL (0.0-0.8); MONOCYTES PERCENT AUTO 5.8 % (0.0-15.0); NEUTROPHILS PERCENT AUTO 82.8 % (48.0-80.0); PLATELET COUNT,PLT 124 K/uL (150-400); RED BLOOD CELL COUNT 3.72 M/uL (4.30-5.90); WHITE BLOOD CELL COUNT,WBC 9.65 K/uL (4.0-11.0)
[2023-05-07 18:07] LABS: A/G RATIO 0.8 (0.9-1.6); BILIRUBIN TOTAL 0.5 mg/dL (0.2-1.0); CARBON DIOXIDE,CO2 22.2 mmol/L (21.0-32.0); CREATININE 5.5 mg/dL (0.6-1.0); EST CRCL DRUG DOSING (CG) 10.28 mL/min; POTASSIUM,K 5.6 mmol/L (3.5-5.1); PROTEIN TOTAL,TP 6.8 g/dL (6.4-8.2)
[2023-05-07 18:51] VITALS: BP 166/90; PULSE 89
== END 2023-05-07 18:49 | disposition home or self-care (01) ==
LOC: MW.ED 17:04
DX: R07.2 Precordial pain (principal); I12.0 Hypertensive chronic kidney disease with stage 5 chronic kidney disease or end stage renal disease; E11.22 Type 2 diabetes mellitus with diabetic chronic kidney disease; N18.6 End stage renal disease; R77.8 Other specified abnormalities of plasma proteins; I42.9 Cardiomyopathy, unspecified; E11.42 Type 2 diabetes mellitus with diabetic polyneuropathy; K21.9 Gastro-esophageal reflux disease without esophagitis; Z88.2 Allergy status to sulfonamides; Z91.040 Latex allergy status; Z79.82 Long term (current) use of aspirin
CPT/HCPCS: 36415; 71045; 80053; 84484; 85025; 93005; 99285; J3490

== ENCOUNTER 2023-05-18 17:50 | Emergency (ER) | payer MEDICARE, MEDICAID ==
[2023-05-18] MEDS ORDERED: LORazepam 0.5 MG Tab PO ONE (19:15)
[2023-05-18] MEDS ORDERED: LORazepam 2 MG/ML SDV IVPUSH ONE (20:09)
[2023-05-18 20:28] LABS: BASOPHILS PERCENT AUTO 0.1 % (0.0-1.5); EOSINOPHILS ABSOLUTE AUTO 0.2 K/uL (0.0-0.7); EOSINOPHILS PERCENT AUTO 2.6 % (0.0-7.0); HEMATOCRIT 25.1 % (36.0-46.0); HEMOGLOBIN 8.3 g/dL (12.0-16.0); LYMPHOCYTES ABSOLUTE AUTO 0.7 K/uL (0.6-2.4); LYMPHOCYTES PERCENT AUTO 8.5 % (16.0-40.0); MEAN CORPUSCULAR HGB CONC 33.1 g/dL (31.0-37.0); MEAN CORPUSCULAR VOLUME 96.9 fL (80.0-98.0); MONOCYTES ABSOLUTE AUTO 0.5 K/uL (0.0-0.8); MONOCYTES PERCENT AUTO 6.2 % (0.0-15.0); NEUTROPHILS ABSOLUTE AUTO 6.8 K/uL (1.4-5.7); NEUTROPHILS PERCENT AUTO 82.6 % (48.0-80.0); NRBC ABSOLUTE 0 K/uL; PLATELET COUNT,PLT 100 K/uL (150-400); RED BLOOD CELL COUNT 2.59 M/uL (4.30-5.90); WHITE BLOOD CELL COUNT,WBC 8.21 K/uL (4.0-11.0)
[2023-05-18 20:46] LABS: A/G RATIO 0.8 (0.9-1.6); ALBUMIN 2.9 g/dL (3.4-5.0); BILIRUBIN TOTAL 0.5 mg/dL (0.2-1.0); CALCIUM 7.5 mg/dL (8.5-10.1); CARBON DIOXIDE,CO2 21.5 mmol/L (21.0-32.0); CREATININE 6.5 mg/dL (0.6-1.0); EST CRCL DRUG DOSING (CG) 9.15 mL/min; POTASSIUM,K 3.6 mmol/L (3.5-5.1); PROTEIN TOTAL,TP 6.6 g/dL (6.4-8.2)
[2023-05-18 21:28] VITALS: BP 140/73; PULSE 82
== END 2023-05-18 21:25 | disposition home or self-care (01) ==
LOC: MW.ED 17:50
DX: F41.9 Anxiety disorder, unspecified (principal); D64.9 Anemia, unspecified; E11.319 Type 2 diabetes mellitus with unspecified diabetic retinopathy without macular edema; K21.9 Gastro-esophageal reflux disease without esophagitis; E11.42 Type 2 diabetes mellitus with diabetic polyneuropathy; Z86.16 Personal history of COVID-19; Z72.0 Tobacco use; Z88.2 Allergy status to sulfonamides; Z91.040 Latex allergy status; Z79.82 Long term (current) use of aspirin; Z79.899 Other long term (current) drug therapy
CPT/HCPCS: 36415; 80053; 85025; 93005; 96374; 99284; J2060

== ENCOUNTER 2023-06-07 10:35 | Emergency (ER) | payer MEDICARE, MEDICAID ==
[2023-06-07] MEDS ORDERED: traMADol 50 MG Tab PO ONE (10:59)
[2023-06-07 12:38] VITALS: BP 111/86; PULSE 83
== END 2023-06-07 12:32 | disposition home or self-care (01) ==
LOC: MW.ED 10:35
DX: M25.462 Effusion, left knee (principal); J44.9 Chronic obstructive pulmonary disease, unspecified; K21.9 Gastro-esophageal reflux disease without esophagitis; E11.42 Type 2 diabetes mellitus with diabetic polyneuropathy; E11.319 Type 2 diabetes mellitus with unspecified diabetic retinopathy without macular edema; I12.0 Hypertensive chronic kidney disease with stage 5 chronic kidney disease or end stage renal disease; E11.22 Type 2 diabetes mellitus with diabetic chronic kidney disease; N18.6 End stage renal disease; Z99.2 Dependence on renal dialysis; Z91.040 Latex allergy status; Z88.2 Allergy status to sulfonamides; Z79.899 Other long term (current) drug therapy; Z79.82 Long term (current) use of aspirin; Z86.16 Personal history of COVID-19
CPT/HCPCS: 73562-26-LT; 73562-LT; 99283; 99284

== ENCOUNTER 2023-07-26 11:08 | Observation (INO) | payer MEDICARE, MEDICAID ==
[2023-07-26] MEDS ORDERED: Sodium Chloride 0.9% 10 ML Syringe FLUSH PRN ×2 (11:45→19:23)
[2023-07-26] MEDS ORDERED: Sodium Chloride 0.9% 2.5 ML Syringe FLUSH PRN ×2 (11:45→19:23)
[2023-07-26] MEDS ORDERED: Insulin Regular in 0.9 % NACL 100 ML IV SCH (12:00)
[2023-07-26 12:08] LABS: BASOPHILS PERCENT AUTO 0.1 % (0.0-1.5); EOSINOPHILS ABSOLUTE AUTO 0.1 K/uL (0.0-0.7); EOSINOPHILS PERCENT AUTO 0.7 % (0.0-7.0); HEMATOCRIT 34.9 % (36.0-46.0); HEMOGLOBIN 10.5 g/dL (12.0-16.0); LYMPHOCYTES ABSOLUTE AUTO 0.3 K/uL (0.6-2.4); MEAN CORPUSCULAR HEMOGLOBIN 32.1 pg (27.0-32.0); MEAN CORPUSCULAR HGB CONC 30.1 g/dL (31.0-37.0); MEAN CORPUSCULAR VOLUME 106.7 fL (80.0-98.0); MONOCYTES ABSOLUTE AUTO 0.5 K/uL (0.0-0.8); MONOCYTES PERCENT AUTO 6.6 % (0.0-15.0); NEUTROPHILS ABSOLUTE AUTO 6.4 K/uL (1.4-5.7); NEUTROPHILS PERCENT AUTO 88.6 % (48.0-80.0); NRBC ABSOLUTE 0 K/uL; PLATELET COUNT,PLT 132 K/uL (150-400); RED BLOOD CELL COUNT 3.27 M/uL (4.30-5.90); WHITE BLOOD CELL COUNT,WBC 7.24 K/uL (4.0-11.0)
[2023-07-26 13:00] LABS: BASE EXCESS VENOUS -0.8 (-2.0-3.0); PH,VENOUS 7.37 (7.31-7.41)
[2023-07-26 13:02] LABS: A/G RATIO 0.6 (0.9-1.6); ALBUMIN 2.4 g/dL (3.4-5.0); BILIRUBIN TOTAL 0.5 mg/dL (0.2-1.0); CALCIUM 8.3 mg/dL (8.5-10.1); CARBON DIOXIDE,CO2 23.2 mmol/L (21.0-32.0); CREATININE 4.2 mg/dL (0.6-1.0); EST CRCL DRUG DOSING (CG) 15.09 mL/min; MAGNESIUM 1.4 mg/dL (1.8-2.4); PHOSPHORUS 3.3 mg/dL (2.6-4.7); POTASSIUM,K 4.4 mmol/L (3.5-5.1); PROTEIN TOTAL,TP 6.7 g/dL (6.4-8.2)
[2023-07-26] MEDS ORDERED: Magnesium Sulfate/Water 2 GM in Premix Bag 1 BAG IV STA (13:21)
[2023-07-26] MEDS ORDERED: Glucagon,Human Recombinant 1 MG Vial IM PRN ×3 (14:02→19:28)
[2023-07-26] MEDS ORDERED: 50% Dextrose in Water 50 ML Syringe IVPUSH PRN ×3 (14:02→19:28)
[2023-07-26] MEDS ORDERED: Insulin Regular, Human 100 Units/ML 10 ML Vial IVPUSH STA ×2 (14:02→15:55)
[2023-07-26] MEDS ORDERED: Furosemide 40 MG/4 ML VIAL IVPUSH STA (16:11)
[2023-07-26] MEDS ORDERED: Insulin Glargine,Hum.Rec.Anlog 100 UNIT/ML 3 ML Pen SUBCUT STA (17:29)
[2023-07-26 18:15] LABS: CALCIUM 8.1 mg/dL (8.5-10.1); CARBON DIOXIDE,CO2 25.2 mmol/L (21.0-32.0); CREATININE 4.3 mg/dL (0.6-1.0); EST CRCL DRUG DOSING (CG) 14.74 mL/min; POTASSIUM,K 3.7 mmol/L (3.5-5.1)
[2023-07-26] MEDS ORDERED: Sodium Chloride 0.9% 20 ML SDV IV PRN (19:23)
[2023-07-26] MEDS ORDERED: Ondansetron 4 MG/2 ML SDV IVPUSH PRN (19:23)
[2023-07-26] MEDS ORDERED: Acetaminophen 325 MG Tab PO PRN (19:23)
[2023-07-26] MEDS ORDERED: Albuterol/Ipratropium 3.0-0.5 MG/3 ML Neb Soln NEB PRN (19:23)
[2023-07-26] MEDS ORDERED: Polyethylene Glycol 3350 Powder 17 GM Packet PO PRN (19:23)
[2023-07-26] MEDS ORDERED: diphenhydrAMINE 25 MG Cap PO PRN (21:26)
[2023-07-26] MEDS ORDERED: Promethazine 25 MG Tab PO PRN (22:35)
[2023-07-26] MEDS ORDERED: LORazepam 0.5 MG Tab ONE (23:12)
[2023-07-26] MEDS ORDERED: Insulin Aspart 100 Units/ML 3 ML Pen ONE (23:13)
[2023-07-26] MEDS ORDERED: Sevelamer Carbonate 800 MG Tab ONE (23:14)
[2023-07-26] MEDS ORDERED: Carvedilol 25 MG Tab ONE (23:14)
[2023-07-26] MEDS: hydrALAZINE 25 MG Tab PO SCH (23:20)
[2023-07-26] MEDS: oxyCODONE 5 MG Tab PO SCH (23:22)
[2023-07-26] MEDS: LORazepam 0.5 MG Tab PO SCH (23:23)
[2023-07-26] MEDS: Carvedilol 25 MG Tab PO SCH (23:23)
[2023-07-26] MEDS: Insulin Aspart 100 Units/ML 3 ML Pen SUBCUT SCH (23:24)
[2023-07-26] MEDS: Sevelamer Carbonate 800 MG Tab PO SCH (23:30)
[2023-07-27 06:44] LABS: CALCIUM 8.1 mg/dL (8.5-10.1); CARBON DIOXIDE,CO2 24.8 mmol/L (21.0-32.0); CREATININE 4.5 mg/dL (0.6-1.0); EST CRCL DRUG DOSING (CG) 14.08 mL/min; MAGNESIUM 1.7 mg/dL (1.8-2.4); POTASSIUM,K 4.7 mmol/L (3.5-5.1)
[2023-07-27] MEDS: hydrALAZINE 25 MG Tab PO SCH ×3 (07:15→21:27)
[2023-07-27] MEDS: oxyCODONE 5 MG Tab PO SCH ×4 (07:15→23:58)
[2023-07-27] MEDS: Insulin Aspart 100 Units/ML 3 ML Pen SUBCUT SCH ×3 (07:50→16:49)
[2023-07-27] MEDS: Sevelamer Carbonate 800 MG Tab PO SCH ×3 (08:08→16:48)
[2023-07-27] MEDS: Carvedilol 25 MG Tab PO SCH ×2 (08:08→21:18)
[2023-07-27] MEDS: LORazepam 0.5 MG Tab PO SCH ×2 (08:11→21:19)
[2023-07-27 12:03] LABS: BASOPHILS PERCENT AUTO 0.3 % (0.0-1.5); EOSINOPHILS ABSOLUTE AUTO 0.2 K/uL (0.0-0.7); EOSINOPHILS PERCENT AUTO 2.9 % (0.0-7.0); HEMATOCRIT 29.1 % (36.0-46.0); HEMOGLOBIN 9.6 g/dL (12.0-16.0); LYMPHOCYTES ABSOLUTE AUTO 0.7 K/uL (0.6-2.4); MEAN CORPUSCULAR HEMOGLOBIN 32.2 pg (27.0-32.0); MEAN CORPUSCULAR VOLUME 97.7 fL (80.0-98.0); MONOCYTES ABSOLUTE AUTO 0.5 K/uL (0.0-0.8); MONOCYTES PERCENT AUTO 7.9 % (0.0-15.0); NEUTROPHILS ABSOLUTE AUTO 4.5 K/uL (1.4-5.7); NEUTROPHILS PERCENT AUTO 76.9 % (48.0-80.0); NRBC ABSOLUTE 0 K/uL; RED BLOOD CELL COUNT 2.98 M/uL (4.30-5.90); WHITE BLOOD CELL COUNT,WBC 5.85 K/uL (4.0-11.0)
[2023-07-27 12:20] LABS: PLATELET COUNT,PLT 171 K/uL (150-400)
[2023-07-27] MEDS: Furosemide 20 MG Tab PO SCH ×2 (14:23→21:27)
[2023-07-27] MEDS ORDERED: VANCOmycin 1.5 GM/300 ML 1.5 GM in Premix Bag 1 BAG IV ONE (18:00)
[2023-07-27] MEDS ORDERED: Insulin Glargine,Hum.Rec.Anlog 100 UNIT/ML 3 ML Pen SUBCUT SCH (21:00)
[2023-07-27] MEDS ORDERED: Aspirin 81 MG Tab.EC PO SCH (21:35)
[2023-07-28] MEDS: Furosemide 20 MG Tab PO SCH ×2 (05:50→14:36)
[2023-07-28] MEDS: oxyCODONE 5 MG Tab PO SCH ×2 (05:50→11:41)
[2023-07-28] MEDS: hydrALAZINE 25 MG Tab PO SCH ×2 (05:50→14:35)
[2023-07-28] MEDS: Insulin Aspart 100 Units/ML 3 ML Pen SUBCUT SCH ×3 (08:09→16:32)
[2023-07-28] MEDS: Carvedilol 25 MG Tab PO SCH (08:10)
[2023-07-28] MEDS: LORazepam 0.5 MG Tab PO SCH (08:11)
[2023-07-28] MEDS: Sevelamer Carbonate 800 MG Tab PO SCH ×3 (08:11→16:29)
[2023-07-28] MEDS ORDERED: Pantoprazole 40 MG Tab.CR PO SCH (09:00)
[2023-07-28] MEDS ORDERED: amLODIPine 5 MG Tab PO SCH (09:00)
[2023-07-28 10:18] LABS: BASOPHILS PERCENT AUTO 0.4 % (0.0-1.5); EOSINOPHILS ABSOLUTE AUTO 0.1 K/uL (0.0-0.7); EOSINOPHILS PERCENT AUTO 2.1 % (0.0-7.0); HEMATOCRIT 30.8 % (36.0-46.0); HEMOGLOBIN 9.8 g/dL (12.0-16.0); LYMPHOCYTES ABSOLUTE AUTO 0.6 K/uL (0.6-2.4); LYMPHOCYTES PERCENT AUTO 9.8 % (16.0-40.0); MEAN CORPUSCULAR HEMOGLOBIN 31.8 pg (27.0-32.0); MEAN CORPUSCULAR HGB CONC 31.8 g/dL (31.0-37.0); MONOCYTES ABSOLUTE AUTO 0.4 K/uL (0.0-0.8); MONOCYTES PERCENT AUTO 7.8 % (0.0-15.0); NEUTROPHILS ABSOLUTE AUTO 4.5 K/uL (1.4-5.7); NEUTROPHILS PERCENT AUTO 79.9 % (48.0-80.0); NRBC ABSOLUTE 0 K/uL; PLATELET COUNT,PLT 166 K/uL (150-400); RED BLOOD CELL COUNT 3.08 M/uL (4.30-5.90); WHITE BLOOD CELL COUNT,WBC 5.64 K/uL (4.0-11.0)
[2023-07-28 10:30] LABS: CALCIUM 7.7 mg/dL (8.5-10.1); CARBON DIOXIDE,CO2 24.1 mmol/L (21.0-32.0); CREATININE 5.5 mg/dL (0.6-1.0); EST CRCL DRUG DOSING (CG) 11.52 mL/min; POTASSIUM,K 5.1 mmol/L (3.5-5.1)
[2023-07-28 18:11] VITALS: BP 136/66; PULSE 76
== END 2023-07-28 17:55 | disposition home health service (06) ==
LOC: MW.ED 11:08 → MW.MS 19:58
PROVIDERS: ADMIT Family Medicine; ATTEND Family Medicine
DX: E11.65 Type 2 diabetes mellitus with hyperglycemia (principal); R78.81 Bacteremia; E11.22 Type 2 diabetes mellitus with diabetic chronic kidney disease; N18.6 End stage renal disease; I50.9 Heart failure, unspecified; I42.9 Cardiomyopathy, unspecified; N19 Unspecified kidney failure; E83.42 Hypomagnesemia; J44.9 Chronic obstructive pulmonary disease, unspecified; E11.319 Type 2 diabetes mellitus with unspecified diabetic retinopathy without macular edema; K21.9 Gastro-esophageal reflux disease without esophagitis; E11.43 Type 2 diabetes mellitus with diabetic autonomic (poly)neuropathy; I25.10 Atherosclerotic heart disease of native coronary artery without angina pectoris; K31.84 Gastroparesis; F41.9 Anxiety disorder, unspecified; F32.A Depression, unspecified; F17.210 Nicotine dependence, cigarettes, uncomplicated; Z99.2 Dependence on renal dialysis; Z79.4 Long term (current) use of insulin; Z79.82 Long term (current) use of aspirin; Z79.899 Other long term (current) drug therapy; Z88.2 Allergy status to sulfonamides; Z91.040 Latex allergy status
CPT/HCPCS: 36415; 71045; 73620; 80048; 80053; 82009; 82803; 82947; 83605; 83690; 83735; 84100; 85025; 87040; 87154; 93005; A9270; J1815; J1940; J3370; J3475; J3490; 87077; 87186; 93010; 96365; 96366; 96367; 96375; 99285; 99285-25; G0378

== ENCOUNTER 2023-07-29 11:29 | Emergency (ER) | payer MEDICARE, MEDICAID ==
[2023-07-30 08:52] VITALS: BP 138/74; PULSE 79
== END 2023-07-29 15:37 | disposition home or self-care (01) ==
LOC: MW.ED 11:29
DX: M17.12 Unilateral primary osteoarthritis, left knee (principal); R26.2 Difficulty in walking, not elsewhere classified; J44.9 Chronic obstructive pulmonary disease, unspecified; E11.22 Type 2 diabetes mellitus with diabetic chronic kidney disease; N18.6 End stage renal disease; D63.1 Anemia in chronic kidney disease; Z99.2 Dependence on renal dialysis; Z88.2 Allergy status to sulfonamides; Z91.040 Latex allergy status; Z79.82 Long term (current) use of aspirin; Z79.4 Long term (current) use of insulin
CPT/HCPCS: 73562-26-LT; 73562-LT; 99283

== ENCOUNTER 2023-08-05 12:09 | Emergency (ER) | payer MEDICARE, MEDICAID ==
[2023-08-05 14:37] LABS: BASOPHILS PERCENT AUTO 0.2 % (0.0-1.5); EOSINOPHILS ABSOLUTE AUTO 0.1 K/uL (0.0-0.7); EOSINOPHILS PERCENT AUTO 1.9 % (0.0-7.0); HEMATOCRIT 31.9 % (36.0-46.0); LYMPHOCYTES ABSOLUTE AUTO 0.4 K/uL (0.6-2.4); LYMPHOCYTES PERCENT AUTO 7.6 % (16.0-40.0); MEAN CORPUSCULAR HEMOGLOBIN 30.7 pg (27.0-32.0); MEAN CORPUSCULAR HGB CONC 31.3 g/dL (31.0-37.0); MEAN CORPUSCULAR VOLUME 97.9 fL (80.0-98.0); MONOCYTES ABSOLUTE AUTO 0.4 K/uL (0.0-0.8); MONOCYTES PERCENT AUTO 7.6 % (0.0-15.0); NEUTROPHILS ABSOLUTE AUTO 4.4 K/uL (1.4-5.7); NEUTROPHILS PERCENT AUTO 82.7 % (48.0-80.0); NRBC ABSOLUTE 0 K/uL; PLATELET COUNT,PLT 167 K/uL (150-400); RED BLOOD CELL COUNT 3.26 M/uL (4.30-5.90); WHITE BLOOD CELL COUNT,WBC 5.29 K/uL (4.0-11.0)
[2023-08-05 15:00] LABS: A/G RATIO 0.5 (0.9-1.6); ALBUMIN 2.2 g/dL (3.4-5.0); BILIRUBIN TOTAL 0.5 mg/dL (0.2-1.0); CALCIUM 8.2 mg/dL (8.5-10.1); CARBON DIOXIDE,CO2 30.1 mmol/L (21.0-32.0); CREATININE 2.2 mg/dL (0.6-1.0); EST CRCL DRUG DOSING (CG) 28.8 mL/min; MAGNESIUM 1.4 mg/dL (1.8-2.4); POTASSIUM,K 3.2 mmol/L (3.5-5.1); PROTEIN TOTAL,TP 6.6 g/dL (6.4-8.2)
[2023-08-05 16:33] VITALS: BP 148/70; PULSE 80
== END 2023-08-05 16:36 | disposition home or self-care (01) ==
LOC: MW.ED 12:09
DX: S91.301A Unspecified open wound, right foot, initial encounter (principal); S91.302A Unspecified open wound, left foot, initial encounter; R26.9 Unspecified abnormalities of gait and mobility; R29.6 Repeated falls; F17.210 Nicotine dependence, cigarettes, uncomplicated; I25.10 Atherosclerotic heart disease of native coronary artery without angina pectoris; E11.319 Type 2 diabetes mellitus with unspecified diabetic retinopathy without macular edema; E11.22 Type 2 diabetes mellitus with diabetic chronic kidney disease; N18.6 End stage renal disease; I50.9 Heart failure, unspecified; J44.9 Chronic obstructive pulmonary disease, unspecified; Z79.4 Long term (current) use of insulin; Z79.82 Long term (current) use of aspirin; Z86.16 Personal history of COVID-19; Z99.2 Dependence on renal dialysis; Z79.899 Other long term (current) drug therapy; Z88.2 Allergy status to sulfonamides; Z91.040 Latex allergy status; W19.XXXA Unspecified fall, initial encounter
CPT/HCPCS: 36415; 71045; 71045-26; 80053; 83735; 85025; 93005; 93010; 99283; 99284

== ENCOUNTER 2023-09-18 12:07 | Emergency (ER) | payer MEDICARE, MEDICAID ==
[2023-09-18 16:07] VITALS: BP 163/73; PULSE 76
== END 2023-09-18 16:07 | disposition home or self-care (01) ==
LOC: MW.ED 12:07
DX: S92.142A Displaced dome fracture of left talus, initial encounter for closed fracture (principal); S92.352A Displaced fracture of fifth metatarsal bone, left foot, initial encounter for closed fracture; E11.319 Type 2 diabetes mellitus with unspecified diabetic retinopathy without macular edema; I25.10 Atherosclerotic heart disease of native coronary artery without angina pectoris; J44.9 Chronic obstructive pulmonary disease, unspecified; Z86.16 Personal history of COVID-19; Z91.040 Latex allergy status; Z88.2 Allergy status to sulfonamides; Z79.899 Other long term (current) drug therapy; Z79.82 Long term (current) use of aspirin; Z79.4 Long term (current) use of insulin; X50.9XXA Other and unspecified overexertion or strenuous movements or postures, initial encounter
CPT/HCPCS: 29515; 73610-26-LT; 73610-LT; 73630-26-LT; 73630-LT; 99283

== ENCOUNTER 2023-09-19 09:01 | Emergency (ER) | payer MEDICARE, MEDICAID ==
[2023-09-19 11:36] VITALS: BP 157/74; PULSE 77
== END 2023-09-19 11:37 | disposition home or self-care (01) ==
LOC: MW.ED 09:01
DX: S82.842A Displaced bimalleolar fracture of left lower leg, initial encounter for closed fracture (principal); S82.424A Nondisplaced transverse fracture of shaft of right fibula, initial encounter for closed fracture; I10 Essential (primary) hypertension; I25.2 Old myocardial infarction; E78.00 Pure hypercholesterolemia, unspecified; J44.9 Chronic obstructive pulmonary disease, unspecified; E11.9 Type 2 diabetes mellitus without complications; Z99.2 Dependence on renal dialysis; Z86.16 Personal history of COVID-19; Z79.4 Long term (current) use of insulin; Z79.899 Other long term (current) drug therapy; Z79.82 Long term (current) use of aspirin; Z91.040 Latex allergy status; Z88.2 Allergy status to sulfonamides
CPT/HCPCS: 73700-26-LT; 73700-LT; 99283

== ENCOUNTER 2023-10-03 16:53 | Emergency (ER) | payer MEDICARE, MEDICAID ==
[2023-10-03] MEDS ORDERED: Clindamycin HCl 150 MG Cap PO STA (19:07)
[2023-10-03 19:46] VITALS: BP 124/70; PULSE 89
== END 2023-10-03 19:30 | disposition home or self-care (01) ==
LOC: MW.ED 16:53
DX: E11.621 Type 2 diabetes mellitus with foot ulcer (principal); L97.429 Non-pressure chronic ulcer of left heel and midfoot with unspecified severity; E11.319 Type 2 diabetes mellitus with unspecified diabetic retinopathy without macular edema; E11.40 Type 2 diabetes mellitus with diabetic neuropathy, unspecified; Z86.16 Personal history of COVID-19; Z91.040 Latex allergy status; Z88.2 Allergy status to sulfonamides; Z79.82 Long term (current) use of aspirin; Z79.4 Long term (current) use of insulin; Z79.899 Other long term (current) drug therapy
CPT/HCPCS: 87070; 87205; 99283; A9270; 87077; 87186

== ENCOUNTER 2023-10-30 11:53 | Emergency (ER) | payer MEDICARE, MEDICAID ==
[2023-10-30 12:50] LABS: BASOPHILS ABSOLUTE AUTO 0.04 K/uL (0.00-0.20); BASOPHILS PERCENT AUTO 0.7 % (0.0-1.0); EOSINOPHILS ABSOLUTE AUTO 0.13 K/uL (0.00-0.45); EOSINOPHILS PERCENT AUTO 2.4 % (0.0-6.0); HEMATOCRIT 29.6 % (37.0-47.0); HEMOGLOBIN 9.4 g/dL (12.0-16.0); IMMATURE GRAN ABSOLUTE AUTO 0.02 K/uL (0.00-0.05); IMMATURE GRAN PERCENT AUTO 0.4 % (0.0-0.4); LYMPHOCYTES ABSOLUTE AUTO 0.54 K/uL (1.00-4.80); LYMPHOCYTES PERCENT AUTO 9.8 % (24.0-44.0); MEAN CORPUSCULAR HEMOGLOBIN 30.6 pg (28.0-32.0); MEAN CORPUSCULAR HGB CONC 31.8 g/dL (32.0-36.0); MEAN CORPUSCULAR VOLUME 96.4 fL (83.0-99.0); MEAN PLATELET VOLUME 12.9 fL (9.4-12.3); MONOCYTES ABSOLUTE AUTO 0.53 K/uL (0.00-0.80); MONOCYTES PERCENT AUTO 9.6 % (0.0-8.0); NEUTROPHILS ABSOLUTE AUTO 4.27 K/uL (1.80-7.70); NEUTROPHILS PERCENT AUTO 77.1 % (41.0-71.0); NRBC ABSOLUTE 0.02 K/uL (0.00-0.02); NRBC PERCENT 0.4 /100WBC (0.0-0.2); PLATELET COUNT,PLT 135 K/uL (150-400); RED BLOOD CELL COUNT 3.07 M/uL (4.10-5.30); WHITE BLOOD CELL COUNT,WBC 5.53 K/uL (3.9-11.3)
[2023-10-30 13:22] LABS: A/G RATIO 0.5 (0.9-1.6); ALBUMIN 2.4 g/dL (3.4-5.0); BILIRUBIN TOTAL 0.8 mg/dL (0.2-1.0); C-REACTIVE PROTEIN 7.05 mg/dL (<0.3); CALCIUM 8.5 mg/dL (8.5-10.1); CARBON DIOXIDE,CO2 33.5 mmol/L (21.0-32.0); CREATININE 1.8 mg/dL (0.6-1.0); EST CRCL DRUG DOSING (CG) 35.2 mL/min; MAGNESIUM 1.4 mg/dL (1.8-2.4); POTASSIUM,K 3.9 mmol/L (3.5-5.1); PROTEIN TOTAL,TP 7.4 g/dL (6.4-8.2)
[2023-10-30 14:38] VITALS: BP 142/68; PULSE 74
== END 2023-10-30 14:39 | disposition home or self-care (01) ==
LOC: MW.ED 11:53
DX: E10.621 Type 1 diabetes mellitus with foot ulcer (principal); L97.323 Non-pressure chronic ulcer of left ankle with necrosis of muscle; L97.519 Non-pressure chronic ulcer of other part of right foot with unspecified severity; I12.0 Hypertensive chronic kidney disease with stage 5 chronic kidney disease or end stage renal disease; N18.6 End stage renal disease; E10.40 Type 1 diabetes mellitus with diabetic neuropathy, unspecified; E78.00 Pure hypercholesterolemia, unspecified; F17.210 Nicotine dependence, cigarettes, uncomplicated; Z86.16 Personal history of COVID-19; Z79.82 Long term (current) use of aspirin; Z79.4 Long term (current) use of insulin; Z79.899 Other long term (current) drug therapy; Z99.2 Dependence on renal dialysis; Z91.040 Latex allergy status; Z88.2 Allergy status to sulfonamides
CPT/HCPCS: 36415; 736002650; 73600-50; 736202650; 73620-50; 80053; 83735; 85025; 86140; 99282; 99283